=== PATIENT | male | born 1940 | race Caucasian/White ===

== ENCOUNTER 2017-11-02 07:17 | Day surgery (SDC) ==
[2017-11-02] MEDS ORDERED: LIDOCAINE 1% 20 ML MDV ID STA (07:51)
[2017-11-02] MEDS ORDERED: DIPRIVAN 20 ML VIAL IVP ONE (09:15)
[2017-11-02] MEDS ORDERED: VERSED ONE (09:15)
[2017-11-02 10:15] VITALS: BP 142/68; TEMP 98.6
--- NOTE | 2017-11-03 09:51 | OP ---
PROCEDURE: COLONOSCOPY TO THE CECUM. ENDOSCOPIST: Bassem DAUGHERTY M.D. INDICATION: CHANGE IN BOWEL HABITS. LAST COLONOSCOPY 5 YEARS AGO. INSTRUMENT: PCEdutor-[id number]. MEDICATION: PER ANESTHESIA. PROCEDURE: The patient was positioned for colonoscopy. The digital rectal exam was negative. The colonoscope was inserted through the anus and advanced to the cecum. The cecum was identified using the ileocecal valve and the appendiceal orifice as landmarks. The scope was slowly withdrawn through an adequately prepped colon. Green Bowel Prep Score of 9. A few scattered diverticula noted in the left colon. The retroflex exam was otherwise normal. The patient tolerated the procedure well without immediate complication. Withdrawal time 8 minutes and 29 seconds. PLAN: 1. Repeat as needed. CC: [facility]
== END 2017-11-02 10:10 | disposition home or self-care (01) ==
LOC: SURG 07:17
PROVIDERS: ATTEND Internal Medicine Gastroenterology
DX: R19.4 Change in bowel habit (principal); K57.30 Diverticulosis of large intestine without perforation or abscess without bleeding

== ENCOUNTER 2023-06-25 19:42 | Observation (INO) ==
[2023-06-25] MEDS ORDERED: SOLU-MEDROL 125 MG IVP ONE (20:08)
[2023-06-25] MEDS ORDERED: DUONEB NEB STA (20:08)
--- NOTE | 2023-06-25 20:09 | ED.PDOC ---
General ED Provider: Dr. KAI ALEJANDRO MD Chief Complaint: Shortness of Air Stated Complaint: SOB Time Seen by Provider: 06/25/23 20:01 Information Source: Patient and EMT Primary Care Provider: JAZZMINE MACIEL Nursing and Triage Documentation Reviewed and Agree: Yes Review of Systems Review Of Systems Constitutional: Reports Weakness All Other Systems: Reviewed and Negative Physical Exam Physical Exam Appearance: Reports No pain distress and Thin Ill-appearing: Mild Pain Distress: None Eyes: Reports KINSEY and EOMI ENT: Reports Ears normal and Nose normal Neck: Supple Respiratory: Reports Airway patent, Breath sounds diminished and Wheezes Cardiovascular: Reports No rub, No murmur and Bradycardia GI/: Reports Soft and No masses Musculoskeletal: Reports Normal strength and ROM intact Skin: Reports Warm and Normal color Neurological: Reports Sensation intact and Motor intact Psychiatric: Reports Affect appropriate Interpretation EKG Interpretation EKG Interpretation By: ED Physician Time of EKG #1: 19:55 Rate: Robles Rhythm: Sinus Ectopy: PACs Interpretation: sinus bradycardia, no acute ischemia Critical Care Note Critical Care Note Total Critical Care Time (mins): 0 Course Course 06/25/23 20:22 06/25/23 20:22 Orders, Labs, Meds: Lab Review 06/25/23 06/25/23 06/25/23 20:22 20:26 20:55 WBC 10.35 H RBC 2.71 L Hgb 8.5 L Hct 25.2 L MCV 93.0 MCH 31.4 H MCHC 33.7 RDW Coeff of Sri 17.1 H Plt Count 270 Immature Gran % (Auto) 0.7 Neut % (Auto) 68.1 Lymph % (Auto) 16.5 [place] % (Auto) 8.9 Eos % (Auto) 5.4 Baso % (Auto) 0.4 Neut # (Auto) 7.1 H Lymph # (Auto) 1.7 [place] # (Auto) 0.9 Eos # (Auto) 0.6 Baso # (Auto) 0.0 Immature Gran # (Auto) 0.1 Sodium 135.6 Potassium 4.08 Chloride 106.5 Carbon Dioxide 22.8 Anion Gap 10.38 BUN 45.3 H Creatinine 1.84 H Estimated GFR (MDRD) 35.00 BUN/Creatinine Ratio 24.61 Glucose 94.7 Calcium 8.51 Total Bilirubin 0.80 AST 27.4 ALT 14.8 Alkaline Phosphatase 53.7 L Troponin I 0.019 NT-Pro-B Natriuret Pep 4170 H Total Protein 7.01 Albumin 3.27 L Globulin 3.74 Albumin/Globulin Ratio 0.87 Urine Color Yellow Urine Clarity Clear Urine pH 5.5 Ur Specific [place] 1.015 Urine Protein 1+ H Urine Glucose (UA) Negative Urine Ketones Negative Urine Blood Negative Urine Nitrite Negative Urine Bilirubin Negative Urine Urobilinogen 0.2 Ur Leukocyte Esterase Negative Urine Microscopic RBC 0-2 Urine Microscopic WBC 0-2 Ur Squamous Epith Cells 2-5 Hyaline Casts 2-5 Influ A Molecular Assay Negative by naat Influ B Molecular Assay Negative by naat Orders Category Date Time Status ADMIT OBSERVATION [PLACE PATIENT OBSERVATION] .TO ADMISSION 06/25/23 22:23 Active MEDSURG (MONITORED BED) EKG-(ED ONLY) Stat CARDIO 06/25/23 20:01 Completed NEBULIZER TREATMENT Stat CARDIO 06/25/23 20:08 Completed IV ACCESS ONCE CARE 06/25/23 20:08 Active TELEMETRY MONITORING TELE CARE 06/25/23 22:24 Active CARDIAC DIET DIETARY 06/26/23 Breakfast Ordered Monitor [ED ARTISTIC DIRECTOR APPLIED] .ONCE EMERGENCY 06/25/23 20:08 Active CBC W/ AUTO DIFF Stat LAB 06/25/23 20:22 Completed CMP [COMPREHENSIVE METABOLIC PANEL] Stat LAB 06/25/23 20:22 Completed FLU A & B MOLECULAR [FLU A/B MOLECULAR] Stat LAB 06/25/23 20:26 Completed PROBNP ED [NT-PROBNP(ED)] Stat LAB 06/25/23 20:22 Completed TROPONIN I Stat LAB 06/25/23 20:22 Completed UA [URINALYSIS C & S IF INDICATED] Stat LAB 06/25/23 20:55 Completed Azithromycin Inj [Zithromax] 500 mg Meds 06/26/23 09:00 Ordered 0.9 % Sodium Chloride [Sodium Chloride] 250 ml IV DAILY Azithromycin Inj [Zithromax] 500 mg Meds 06/25/23 22:14 Active 0.9 % Sodium Chloride [Sodium Chloride] 250 ml IV ONCE Furosemide [Lasix] Meds 06/25/23 21:05 Discontinued 20 mg IVP ONCE STA Ipratropium/Albuterol Neb [Duoneb] Meds 06/25/23 20:08 Discontinued 3 ml NEB ONCE STA Methylprednisolone Sod Succ/Pf [Solu-Medrol 125 mg] Meds 06/25/23 20:08 Discontinued 125 mg IVP ONCE ONE Methylprednisolone Sod Succ/Pf [Solu-Medrol 40 mg] Meds 06/25/23 22:30 Ordered 40 mg IVP Q8H CXR [CHEST, 1V AP ONLY] Stat RADS 06/25/23 20:01 Completed Medications Generic Name Dose Route Start Last Admin Trade Name Freq PRN Reason Stop Dose Admin Albuterol/Ipratropium 3 ml 06/26/23 00:00 Ipratropium/Albuterol Vial.Neb NEB RTQ6H BERYL Azithromycin 500 mg/ Sodium 250 mls @ 250 mls/hr 06/25/23 22:14 Chloride IV 06/25/23 23:13 ONCE ONE Azithromycin 500 mg/ Sodium 250 mls @ 250 mls/hr 06/26/23 09:00 Chloride IV 06/29/23 08:59 DAILY BERYL Methylprednisolone Sodium Succinate 40 mg 06/25/23 22:30 Methylprednisolone Sod Succ/Pf 40 Mg/Ml Vial IVP Q8H BERYL Discontinued Medications Generic Name Dose Route Start Last Admin Trade Name Freq PRN Reason Stop Dose Admin Albuterol/Ipratropium 3 ml 06/25/23 20:08 06/25/23 20:23 Ipratropium/Albuterol Vial.Neb NEB 06/25/23 20:09 3 ml ONCE STA Administration Furosemide 20 mg 06/25/23 21:05 06/25/23 21:11 Furosemide Inj 20 Mg/2 Ml Vial IVP 06/25/23 21:06 20 mg ONCE STA Administration Methylprednisolone Sodium Succinate 125 mg 06/25/23 20:08 06/25/23 20:14 Methylprednisolone Sod Succ/Pf 125 Mg/2 Ml Vial IVP 06/25/23 20:09 125 mg ONCE ONE Administration Vital Signs: Temp Pulse Resp BP Pulse Ox O2 Flow Rate 06/25/23 22:25 53 L 18 115/42 L 96 2 06/25/23 19:44 98.3 F 58 L 24 H 122/49 L 93 L 83 years old male with past medical history of hypertension, dyslipidemia, COPD, anxiety, hypothyroidism who came to the ER for shortness of breath patient reports that he has been feeling short of breath worse with exertion has not been able to walk to the door to open for his son at home. WBC 10.3 hemoglobin 8.5 BUN 45 creatinine 1.8 troponin negative proBNP 4170 urinalysis negative for urine infection. Patient was given Solu-Medrol 125 mg and DuoNeb nebulizer treatment and 20 mg of IV Lasix symptoms improved but continues to feel weak. Case discussed with hospitalist Nory and she accepted the patient to be admitted to her services for further IV steroids/antibiotics possible cardiology consultation Discharge Plan Discharge Patient Disposition: ADMITTED INPATIENT Discharge Problem: Acute exacerbation of chronic obstructive pulmonary disease, Acute renal failure, Anemia Did you review [place] RESEARCH ANIMAL ATTENDANT for ALL controlled substances?: Not Applicable ED Provider: KAI ALEJANDRO Condition: Stable Physician Progress Note: []
--- NOTE | 2023-06-25 20:22 | DI ---
EXAM: CHEST RADIOGRAPH TECHNIQUE: Single frontal chest radiograph. COMPARISON: None. HISTORY: Shortness of breath. FINDINGS: Arteriosclerosis is noted. The heart measures at the upper limits of normal. A small left pleural ef fusion is identified with adjacent atelectasis. Otherwise, the lungs are clear. No pneumothorax. Age-related degerative changes are noted. IMPRESSION: A small left pleural effusion is identified.
[2023-06-25 20:23] LABS: BASOPHILS % (AUTO) 0.4 % (0.0-3.0); EOSINOPHILS # (AUTO) 0.6 K/ul (0.0-0.7); EOSINOPHILS % (AUTO) 5.4 % (0.0-7.0); HEMATOCRIT 25.2 % (42.0-52.0); HEMOGLOBIN 8.5 g/dl (14.0-18.0); IMMATURE GRANULOCYTE # (AUTO) 0.1 (0.0-1.0); IMMATURE GRANULOCYTE % (AUTO) 0.7 % (0.0-5.0); LYMPHOCYTES # (AUTO) 1.7 K/uL (0.60-3.4); LYMPHOCYTES % (AUTO) 16.5 (10.0-50.0); MEAN CORPUSCULAR HEMOGLOBIN 31.4 pg (27.0-31.0); MEAN CORPUSCULAR HGB CONC 33.7 (31.8-35.4); MONOCYTES # (AUTO) 0.9 K/uL (0.4-2.0); MONOCYTES % (AUTO) 8.9 (0-10); NEUTROPHILS # (AUTO) 7.1 K/ul (2.0-6.9); NEUTROPHILS % (AUTO) 68.1 % (42.2-75.2); PLATELET COUNT 270 10^3/uL (140-440); RDW COEFFICIENT OF VARIATION 17.1 % (11.6-14.8); RED BLOOD COUNT 2.71 10^6/ul (4.70-6.10); WHITE BLOOD COUNT 10.35 K/ul (4.2-10.2)
[2023-06-25 20:37] LABS: ALANINE AMINOTRANSFERASE 14.8 U/L (0-50); ALBUMIN 3.27 g/dL (3.5-5.0); ALKALINE PHOSPHATASE 53.7 U/L (56-119); ASPARTATE AMINO TRANSFERASE 27.4 U/L (17-59); BILIRUBIN,TOTAL 0.8 mg/dL (0.2-1.3); BLOOD UREA NITROGEN 45.3 mg/dL (9-20); CALCIUM 8.51 mg/dL (8.4-10.2); CARBON DIOXIDE 22.8 mmol/L (22-30.0); CHLORIDE 106.5 mmol/L (98-107); CREATININE 1.84 mg/dL (0.60-1.10); GLUCOSE 94.7 mg/dL (74-106); POTASSIUM 4.08 mmol/L (3.5-5.1); SODIUM 135.6 mmol/L (134.5-145); TOTAL PROTEIN 7.01 g/dL (6.3-8.2)
[2023-06-25 20:46] LABS: MOLECULAR FLU A NEGATIVE BY NAAT (NEGATIVE); MOLECULAR FLU B NEGATIVE BY NAAT (NEGATIVE)
[2023-06-25 20:49] LABS: TROPONIN I 0.019 ng/ml (0.0000-0.120)
[2023-06-25] MEDS ORDERED: LASIX IVP STA (21:05)
[2023-06-25 21:46] LABS: BILIRUBIN,URINE Negative (NEGATIVE); CLARITY,URINE Clear (CLEAR); COLOR,URINE Yellow (YELLOW); GLUCOSE, URINE (UA) Negative (NEGATIVE); KETONES,URINE Negative (NEGATIVE); LEUKOCYTE ESTERASE ,URINE Negative (NEGATIVE); NITRITE,URINE Negative (NEGATIVE); PH,URINE 5.5 (5-9); PROTEIN,URINE 1+ (NEGATIVE); URINE, BLOOD Negative (NEGATIVE); UROBILINOGEN,URINE 0.2 (0.2)
[2023-06-25 21:51] LABS: URINE RBC, MICROSCOPIC 0-2 (0-2); URINE WBC, MICROSCOPIC 0-2 (0-2)
[2023-06-25] MEDS ORDERED: ZITHROMAX 500 MG in SODIUM CHLORIDE 250 ML IV ONE (22:14)
[2023-06-25 23:00] LABS: SARS COV-2 RNA RAPID NAAT NEGATIVE (NEGATIVE)
[2023-06-25 23:28] VITALS: BMI 20.5
[2023-06-25] MEDS: NICODERM 21 MG TD SCH (23:46)
[2023-06-26] MEDS: DUONEB NEB SCH ×4 (00:53→17:01)
[2023-06-26] MEDS: SOLU-MEDROL 40 MG IVP SCH ×3 (04:45→20:12)
[2023-06-26 05:28] VITALS: RESP 18
[2023-06-26 06:13] LABS: BASOPHILS % (AUTO) 0.2 % (0.0-3.0); HEMATOCRIT 26.2 % (42.0-52.0); HEMOGLOBIN 8.5 g/dl (14.0-18.0); IMMATURE GRANULOCYTE # (AUTO) 0.1 (0.0-1.0); IMMATURE GRANULOCYTE % (AUTO) 0.6 % (0.0-5.0); LYMPHOCYTES # (AUTO) 0.5 K/uL (0.60-3.4); MEAN CORPUSCULAR HEMOGLOBIN 30.6 pg (27.0-31.0); MEAN CORPUSCULAR HGB CONC 32.4 (31.8-35.4); MEAN CORPUSCULAR VOLUME 94.2 fl (80.0-94.0); MONOCYTES # (AUTO) 0.1 K/uL (0.4-2.0); MONOCYTES % (AUTO) 1.4 (0-10); NEUTROPHILS # (AUTO) 9.5 K/ul (2.0-6.9); NEUTROPHILS % (AUTO) 92.8 % (42.2-75.2); PLATELET COUNT 328 10^3/uL (140-440); RDW COEFFICIENT OF VARIATION 16.9 % (11.6-14.8); RED BLOOD COUNT 2.78 10^6/ul (4.70-6.10); WHITE BLOOD COUNT 10.22 K/ul (4.2-10.2)
[2023-06-26 06:25] LABS: ALANINE AMINOTRANSFERASE 14.8 U/L (0-50); ALBUMIN 3.08 g/dL (3.5-5.0); ALKALINE PHOSPHATASE 50.9 U/L (56-119); ASPARTATE AMINO TRANSFERASE 26.6 U/L (17-59); BILIRUBIN,TOTAL 0.75 mg/dL (0.2-1.3); BLOOD UREA NITROGEN 46.3 mg/dL (9-20); CALCIUM 8.36 mg/dL (8.4-10.2); CARBON DIOXIDE 26.4 mmol/L (22-30.0); CHLORIDE 106.2 mmol/L (98-107); CREATININE 1.98 mg/dL (0.60-1.10); GLUCOSE 174.2 mg/dL (74-106); POTASSIUM 4.28 mmol/L (3.5-5.1); TOTAL PROTEIN 6.78 g/dL (6.3-8.2)
[2023-06-26] MEDS: NICODERM 21 MG TD SCH (09:14)
[2023-06-26] MEDS: CELEXA PO SCH (09:14)
[2023-06-26] MEDS: IMDUR PO SCH (09:14)
[2023-06-26] MEDS: APRESOLINE PO SCH ×2 (09:14→20:05)
[2023-06-26] MEDS: COZAAR PO SCH ×2 (09:15→20:05)
[2023-06-26] MEDS: NORVASC PO SCH (09:15)
[2023-06-26] MEDS: ZYLOPRIM PO SCH (09:15)
[2023-06-26] MEDS: FLOMAX PO SCH (09:15)
[2023-06-26] MEDS: ASPIRIN EC PO SCH (09:15)
[2023-06-26] MEDS: PROTONIX PO SCH ×2 (09:16→16:52)
[2023-06-26] MEDS: SYNTHROID PO SCH (09:16)
--- NOTE | 2023-06-26 10:47 | PCM ---
Date of Service Date Seen by Provider: 06/26/23 Time Seen by Provider: 08:40 Admit Day/Time Admission Date: 06/25/23 Admission Time: 22:23 Reason for Admission Chief Complaint: COPD EXACERBATION Hospital Provider Hospital Provider: GLEN GRIDER PA-C, [facility] [place] Phys[place] Primary Care Physician: JAZZMINE MACIEL History of Present Illness History of Present Illness: Patient is an 83 year old male with pmhx of COPD, CAD, hypertension, hypothyroidism, GERD, BPH, hyperlipidemia, gout who presented to the ER with worsening SOB. 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 He has had exertional SOB. Denies chest pain. No fever. He had a couple episodes of diarrhea. He overall just feels weak. In ER, CXR showed a mild pleural effusion. BNP elevated. Was wheezing. He was given neb treatment, solumedrol, and azith. Admitted for COPD exacerbation to [facility]. He was placed on 3L due to O2 being 90% per ERP. Records reviewed from [facility]. Patient was admitted end of January 27 for chest pain work up. Had echo showing LVEF 66-70%, moderate aoritc valve regurg, mild-mod aortic stenosis. Also had a cardiac cath with severe left main plus 3 vessel CAD, not appear amenable to PCI. Recs were to cont aspirin indefinitely and other risk factor modifying drugs. His insulation hoseman consulted with CT surgery regarding a CABG, but they did not feel he was an operable candidate. Patient f/u with Dr. Ashby, cardiology, on 03/05. Revisited idea of CABG with CT surgeon and again felt to be a poor candidate. Dr. Ashby is considering PCI for him. He preferred for patient to have pcp referral to neuro for work up of frequent dizziness/lightheadedness spells prior to undergoing a high risk PCI procedure. Pt has not f/u with pcp for a neuro referral at this time. He is still having frequent dizziness spells. Case Discussed With Case Discussed With: Patient's case was discussed with the ER Physicians, Dr. Sousa. [facility] Medical History Bilateral carotid artery disease I77.9 - Disorder of arteries and arterioles, unspecified (ICD-10) Depression F32.A - Depression, unspecified (ICD-10) Anxiety F41.9 - Anxiety disorder, unspecified (ICD-10) COPD (chronic obstructive pulmonary disease) J44.9 - Chronic obstructive pulmonary disease, unspecified (ICD-10) Hyperlipidemia E78.5 - Hyperlipidemia, unspecified (ICD-10) Anemia D64.9 - Anemia, unspecified (ICD-10) Hypothyroidism E03.9 - Hypothyroidism, unspecified (ICD-10) Diabetes E11.9 - Type 2 diabetes mellitus without complications (ICD-10) Myocardial infarct I21.9 - Acute myocardial infarction, unspecified (ICD-10) Hypertension I10 - Essential (primary) hypertension (ICD-10) Surgical History Status post spinal disc removal Z98.890 - Other specified postprocedural states (ICD-10) 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 - Acquired absence of other parts of urinary tract (ICD-10) Social History Smoking and tobacco status: Current every day smoker Tobacco type: cigarettes Smoking packs per day: 1 Smoking cigarettes per day: 20.0 Allergies Allergies Allergy/AdvReac Type Severity Reaction Status Date / Time No Known Allergies Allergy Verified 06/25/23 19:58 Current Medications Home Medications atenolol 50 mg tablet 25 mg PO QPM 10/30/17 [History Confirmed 06/25/23 Last Taken Unknown] cholecalciferol (vitamin D3) 50 mcg (2,000 unit) capsule (Vitamin D3) 2,000 units PO DAILY 10/30/17 [History Confirmed 06/25/23 Last Taken Unknown] citalopram 40 mg tablet (Celexa) 40 mg PO DAILY 10/30/17 [History Confirmed 06/25/23 Last Taken Unknown] cyanocobalamin (vitamin B-12) 1,000 mcg tablet 1,000 mcg PO DAILY 10/30/17 [History Confirmed 06/25/23 Last Taken Unknown] pantoprazole 40 mg tablet,delayed release 40 mg PO BID 10/30/17 [History Confirmed 06/25/23 Last Taken Unknown] tamsulosin 0.4 mg capsule 0.4 mg PO DAILY 10/30/17 [History Confirmed 06/25/23 Last Taken Unknown] allopurinol 100 mg tablet 100 mg PO DAILY 06/25/23 [History Confirmed 06/25/23 Last Taken Unknown] amlodipine 10 mg tablet 10 mg PO DAILY 06/25/23 [History Confirmed 06/25/23 Last Taken Unknown] aspirin 81 mg tablet,delayed release (Lor Low Dose Aspirin) 81 mg PO DAILY 06/25/23 [History Confirmed 06/25/23 Last Taken Unknown] atorvastatin 80 mg tablet 40 mg PO BEDTIME 06/25/23 [History Confirmed 06/25/23 Last Taken Unknown] calcitriol 0.25 mcg capsule 0.25 mcg PO DAILY 06/25/23 [History Confirmed 06/25/23 Last Taken Unknown] hydralazine 100 mg tablet 100 mg PO BID 06/25/23 [History Confirmed 06/25/23 Last Taken Unknown] isosorbide mononitrate 30 mg tablet,extended release 24 hr 30 mg PO DAILY 06/25/23 [History Confirmed 06/25/23 Last Taken Unknown] levothyroxine 112 mcg tablet (Euthyrox) 112 mcg PO DAILY 06/25/23 [History Confirmed 06/25/23 Last Taken Unknown] loratadine 10 mg tablet (Allerclear) 10 mg PO DAILY 06/25/23 [History Confirmed 06/25/23 Last Taken Unknown] losartan 100 mg tablet (Cozaar) 50 mg PO BID 06/25/23 [History Confirmed 06/25/23 Last Taken Unknown] magnesium oxide 400 mg PO DAILY 06/25/23 [History Confirmed 06/25/23 Last Taken Unknown] nitroglycerin 0.4 mg sublingual tablet 0.4 mg sublingual Q5-15M PRN chest pain 06/25/23 [History Confirmed 06/25/23 Last Taken Unknown] omega 7-luy-tnu-fish oil 300 mg-1,000 mg capsule (Fish Oil) 1 cap PO DAILY 06/25/23 [History Confirmed 06/25/23 Last Taken Unknown] Home Albuterol/Ipratropium (Ipratropium/Albuterol Vial.Neb) 3 ml NEB RTQ6H [facility] Last Admin: 06/26/23 04:48 Dose: 3 ml Allopurinol (Allopurinol 100 Mg Tablet) 100 mg PO DAILY [facility] Last Admin: 06/26/23 09:15 Dose: 100 mg Amlodipine Besylate (Amlodipine Besylate 5 Mg Tablet) 10 mg PO DAILY [facility] Last Admin: 06/26/23 09:15 Dose: 10 mg Aspirin (Aspirin 81 Mg Tablet.) 81 mg PO DAILYWM2 [facility] Last Admin: 06/26/23 09:15 Dose: 81 mg Atorvastatin Calcium (Atorvastatin Calcium 20 Mg Tablet) 40 mg PO BEDTIME BERYL Citalopram Hydrobromide (Citalopram Hydrobromide 20 Mg Tablet) 40 mg PO DAILY BERYL Last Admin: 06/26/23 09:14 Dose: 40 mg Hydralazine HCl (Hydralazine Hcl 50 Mg Tablet) 100 mg PO BID [facility] Last Admin: 06/26/23 09:14 Dose: 100 mg Azithromycin 500 mg/ Sodium (Chloride) 250 mls @ 250 mls/hr IV BEDTIME [facility] Stop: 06/28/23 20:59 Isosorbide Mononitrate (Isosorbide Mononitrate 30 Mg Tab.Er.24h) 30 mg PO DAILY [facility] Last Admin: 06/26/23 09:14 Dose: 30 mg Levothyroxine Sodium (Levothyroxine Sodium 112 Mcg Tablet) 112 mcg PO QDAC2 [facility] Last Admin: 06/26/23 09:16 Dose: 112 mcg Losartan Potassium (Losartan Potassium 100 Mg Tablet) 50 mg PO BID [facility] Last Admin: 06/26/23 09:15 Dose: 50 mg Methylprednisolone Sodium Succinate (Methylprednisolone Sod Succ/Pf 40 Mg/Ml Vial) 40 mg IVP Q8H [facility] Last Admin: 06/26/23 04:45 Dose: 40 mg Nicotine (Nicotine 21 Mg Patch.Td24) 1 patch TD DAILY [facility] Last Admin: 06/26/23 09:14 Dose: 1 patch Pantoprazole Sodium (Pantoprazole Sodium 40 Mg Tablet.) 40 mg PO BIDAC2 [facility] Last Admin: 06/26/23 09:16 Dose: 40 mg Sodium Chloride (0.9% Sodium Chloride 10 Ml Disp.Syrin) 1 syr IVF Q8HR [facility] Last Admin: 06/26/23 04:45 Dose: 1 syr Tamsulosin HCl (Tamsulosin Hcl 0.4 Mg Cap.Er.24h) 0.4 mg PO DAILY [facility] Last Admin: 06/26/23 09:15 Dose: 0.4 mg Discontinued Medications Albuterol/Ipratropium (Ipratropium/Albuterol Vial.Neb) 3 ml NEB ONCE STA Stop: 06/25/23 20:09 Last Admin: 06/25/23 20:23 Dose: 3 ml Furosemide (Furosemide Inj 20 Mg/2 Ml Vial) 20 mg IVP ONCE STA Stop: 06/25/23 21:06 Last Admin: 06/25/23 21:11 Dose: 20 mg Azithromycin 500 mg/ Sodium (Chloride) 250 mls @ 250 mls/hr IV ONCE ONE Stop: 06/25/23 23:13 Last Admin: 06/25/23 22:26 Dose: 250 mls/hr Azithromycin 500 mg/ Sodium (Chloride) 250 mls @ 250 mls/hr IV 2000 BERYL Stop: 06/29/23 19:59 Methylprednisolone Sodium Succinate (Methylprednisolone Sod Succ/Pf 125 Mg/2 Ml Vial) 125 mg IVP ONCE ONE Stop: 06/25/23 20:09 Last Admin: 06/25/23 20:14 Dose: 125 mg Review of Systems Constitutional: Reports Fatigue and Weakness; Denies Fever Head: Reports Normocephalic and Atraumatic Cardiovascular: Denies Chest pain or Edema Respiratory: Reports Cough, Shortness of air and Wheeze Gastrointestinal: Reports Diarrhea; Denies Nausea, Vomiting, Abdominal pain or Melena Hematology: Reports Anemia Neurological: Reports Dizziness (+chronic) and Weakness; Denies Syncope Physical examination Most Recent Vital Signs: Most Recent Vital Signs Temperature 97.9 F 06/26/23 10:00 Temperature Source Oral 06/26/23 10:00 Temperature Source Infrared 06/25/23 19:44 Pulse Rate 60 06/26/23 10:00 Respiratory Rate 18 06/26/23 10:00 Blood Pressure 121/51 L 06/26/23 10:00 Blood Pressure Mean 74 06/26/23 10:00 Blood Pressure Left Arm 115/47 06/25/23 23:16 Blood Pressure Location Right Arm 06/26/23 10:00 Blood Pressure Position Supine 06/26/23 05:26 O2 Sat by Pulse Oximetry 93 L 06/26/23 10:00 Oxygen Delivery Method Nasal Cannula 06/26/23 10:00 Oxygen Flow Rate 1 06/26/23 10:00 Height 6 ft 1 in 06/25/23 23:16 Weight 156 lb 06/25/23 23:16 Telemetry Type Remote Telemetry 06/26/23 07:00 Telemetry Monitoring Continues 06/26/23 07:00 Telemetry Heart Rate 63 06/26/23 07:00 Telemetry SPO2 97 06/26/23 01:00 EKG OH Interval 0.18 06/26/23 07:00 EKG QRS Interval 0.08 06/26/23 07:00 Telemetry Strip Reading SR 06/26/23 07:00 Appearance: Positive No Apparent Distress, Alert and Oriented x3 and Other (+elderly, frail) Skin: Positive [place], Warm and Good Turgor; Negative Rashes HEENT: Positive Normocephalic and Atraumatic Neck: Positive Supple and Midline Trachea Chest/Lungs: Positive Symmetrical With Equal Breath Sounds, Wheezes (+mild wheezes nikolas ) and Good Air Movement all 4 Lung Reilly; Negative Rales or Rhonci Heart: Positive RRR GI/: Positive Soft, Nontender, Bowel Sounds Normal and No Distention Extremities: Negative Edema Neurological: Positive Cranial Nerves Intact, Alert, Oriented and Other (+generalized weakness ) Psychiatric: Positive Oriented x4, Appropriate Mood and Appropriate Affect Labs This Visit Labs This Visit: Labs This Visit 06/25/23 06/25/23 06/25/23 20:22 20:26 20:55 WBC 10.35 H RBC 2.71 L Hgb 8.5 L Hct 25.2 L MCV 93.0 MCH 31.4 H MCHC 33.7 RDW Coeff of Sri 17.1 H Plt Count 270 Immature Gran % (Auto) 0.7 Neut % (Auto) 68.1 Lymph % (Auto) 16.5 [place] % (Auto) 8.9 Eos % (Auto) 5.4 Baso % (Auto) 0.4 Neut # (Auto) 7.1 H Lymph # (Auto) 1.7 [place] # (Auto) 0.9 Eos # (Auto) 0.6 Baso # (Auto) 0.0 Immature Gran # (Auto) 0.1 Sodium 135.6 Potassium 4.08 Chloride 106.5 Carbon Dioxide 22.8 Anion Gap 10.38 BUN 45.3 H Creatinine 1.84 H Estimated GFR (MDRD) 35.00 BUN/Creatinine Ratio 24.61 Glucose 94.7 Calcium 8.51 Total Bilirubin 0.80 AST 27.4 ALT 14.8 Alkaline Phosphatase 53.7 L Troponin I 0.019 NT-Pro-B Natriuret Pep 4170 H Total Protein 7.01 Albumin 3.27 L Globulin 3.74 Albumin/Globulin Ratio 0.87 Urine Color Yellow Urine Clarity Clear Urine pH 5.5 Ur Specific [place] 1.015 Urine Protein 1+ H Urine Glucose (UA) Negative Urine Ketones Negative Urine Blood Negative Urine Nitrite Negative Urine Bilirubin Negative Urine Urobilinogen 0.2 Ur Leukocyte Esterase Negative Urine Microscopic RBC 0-2 Urine Microscopic WBC 0-2 Ur Squamous Epith Cells 2-5 Hyaline Casts 2-5 Influ A Molecular Assay Negative by naat Influ B Molecular Assay Negative by naat SARS CoV-2 RNA Rapid JESICA 06/25/23 06/26/23 22:38 04:52 WBC 10.22 H RBC 2.78 L Hgb 8.5 L Hct 26.2 L MCV 94.2 H MCH 30.6 MCHC 32.4 RDW Coeff of Sri 16.9 H Plt Count 328 Immature Gran % (Auto) 0.6 Neut % (Auto) 92.8 H Lymph % (Auto) 5.0 L [place] % (Auto) 1.4 Eos % (Auto) 0.0 Baso % (Auto) 0.2 Neut # (Auto) 9.5 H Lymph # (Auto) 0.5 L [place] # (Auto) 0.1 L Eos # (Auto) 0.0 Baso # (Auto) 0.0 Immature Gran # (Auto) 0.1 Sodium 135.0 Potassium 4.28 Chloride 106.2 Carbon Dioxide 26.4 Anion Gap 6.68 BUN 46.3 H Creatinine 1.98 H Estimated GFR (MDRD) 32.00 BUN/Creatinine Ratio 23.38 Glucose 174.2 H D Calcium 8.36 L Total Bilirubin 0.75 AST 26.6 ALT 14.8 Alkaline Phosphatase 50.9 L Troponin I NT-Pro-B Natriuret Pep Total Protein 6.78 Albumin 3.08 L Globulin 3.70 Albumin/Globulin Ratio 0.83 Urine Color Urine Clarity Urine pH Ur Specific [place] Urine Protein Urine Glucose (UA) Urine Ketones Urine Blood Urine Nitrite Urine Bilirubin Urine Urobilinogen Ur Leukocyte Esterase Urine Microscopic RBC Urine Microscopic WBC Ur Squamous Epith Cells Hyaline Casts Influ A Molecular Assay Influ B Molecular Assay SARS CoV-2 RNA Rapid JESICA Negative Imaging Imaging: EXAM: CHEST RADIOGRAPH TECHNIQUE: Single frontal chest radiograph. COMPARISON: None. HISTORY: Shortness of breath. FINDINGS:Arteriosclerosis is noted. The heart measures at the upper limits of normal. A small left pleural effusion is identified with adjacent atelectasis. Otherwise, the lungs are clear. No pneumothorax. Age-related degerative changes are noted. IMPRESSION: A small left pleural effusion is identified. Review Statement Review Statement: I have independently reviewed and interpreted the labs/EKGs/imaging that were ordered by the ER provider. I have reviewed all outside records that are available currently in our EMR including imaging/notes/labs from previous visits. Plan Plan: 1. Acute COPD exacerbation - Cont azith, solumedrol, nebs. Wean o2 when able, pt has not been hypoxic. PFT 01/27 showed moderate COPD. Pt states he takes inhalers at home. Wixela and albuterol. 2. CAD - Pt following Dr. Ashby at [facility], plan for PCI at later date but medically manage until then. [facility] to work up his dizziness. 3. Anemia, chronic - [facility] note patient gets darbepoetin shots 60 mcg q4 weeks and follows with heme/onc outpatient. 4. Hypertension - Cont home meds 5. Hyperlipidemia - Cont home meds 6. Gout - Cont home meds 7. Hypothyroidism - Continue home meds 8. GERD - Cont home meds 9. BPH - Cont home meds Dispo - Pt improving from COPD standpoint. Likely dc tomorrow. Needs to make f[facility]u with [facility] for [facility] referral for work up to then f/u with his insulation hoseman to address his severe CAD. Patient understands this. Tried to make [facility] PCP apt for him but they wouldn't allow it. DVT Prophylaxis: Lovenox Time Spent: Greater than 80 minutes spent with patient, 50% of the time spent wi th this patient was devoted to counseling and coordination of care. Advanced [facility] Plannin minutes spent discussing advance care planning. DNR Smoking Cessation: 3 minutes spent discussing smoking cessation. Admit to: Obs Discussed Plan of Care with Dr. Jacy Bay. Medications Medication Orders: Medications Ordered Category Date Time Status 0.9 % Sodium Chloride [Saline Flush] Meds 06/26/23 05:00 Active 1 syr IVF Q8HR Allopurinol [Zyloprim] Meds 06/26/23 09:00 Active 100 mg PO DAILY Amlodipine Besylate [Norvasc] Meds 06/26/23 09:00 Active 10 mg PO DAILY Aspirin [Aspirin EC] Meds 06/26/23 09:00 Active 81 mg PO DAILYWM2 Atorvastatin Calcium [Lipitor] Meds 06/26/23 21:00 Active 40 mg PO BEDTIME Azithromycin Inj [Zithromax] 500 mg Meds 06/26/23 21:00 Active 0.9 % Sodium Chloride [Sodium Chloride] 250 ml IV BEDTIME Citalopram Hydrobromide [Celexa] Meds 06/26/23 09:00 Active 40 mg PO DAILY Hydralazine HCl [Apresoline] Meds 06/26/23 09:00 Active 100 mg PO BID Ipratropium/Albuterol Neb [Duoneb] Meds 06/26/23 00:00 Active 3 ml NEB RTQ6H Isosorbide Mononitrate [Imdur] Meds 06/26/23 09:00 Active 30 mg PO DAILY Levothyroxine Sodium [Synthroid] Meds 06/26/23 09:00 Active 112 mcg PO QDAC2 Losartan Potassium [Cozaar] Meds 06/26/23 09:00 Active 50 mg PO BID Methylprednisolone Sod Succ/Pf [Solu-Medrol 40 mg] Meds 06/26/23 04:00 Active 40 mg IVP Q8H Nicotine 21 mg [Nicoderm 21 mg] Meds 06/25/23 23:21 Active 1 patch TD DAILY Pantoprazole Sodium [Protonix] Meds 06/26/23 09:00 Active 40 mg PO BIDAC2 Tamsulosin HCl [Flomax] Meds 06/26/23 09:00 Active 0.4 mg PO DAILY
[2023-06-26] MEDS ORDERED: TENORMIN PO SCH (17:00)
[2023-06-26] MEDS ORDERED: ZITHROMAX 500 MG in SODIUM CHLORIDE 250 ML IV SCH ×2 (20:00→21:00)
[2023-06-26] MEDS ORDERED: LIPITOR PO SCH (21:00)
[2023-06-27] MEDS: DUONEB NEB SCH ×2 (00:13→05:08)
[2023-06-27] MEDS: SOLU-MEDROL 40 MG IVP SCH (04:24)
[2023-06-27 05:22] VITALS: BP 146/59; PULSE 61; TEMP 97.6
[2023-06-27] MEDS: PROTONIX PO SCH (05:22)
[2023-06-27] MEDS: SYNTHROID PO SCH (05:22)
[2023-06-27 06:11] LABS: BASOPHILS % (AUTO) 0.1 % (0.0-3.0); HEMATOCRIT 26.2 % (42.0-52.0); HEMOGLOBIN 8.8 g/dl (14.0-18.0); IMMATURE GRANULOCYTE # (AUTO) 0.2 (0.0-1.0); IMMATURE GRANULOCYTE % (AUTO) 0.9 % (0.0-5.0); LYMPHOCYTES # (AUTO) 1.1 K/uL (0.60-3.4); LYMPHOCYTES % (AUTO) 4.3 (10.0-50.0); MEAN CORPUSCULAR HEMOGLOBIN 31.3 pg (27.0-31.0); MEAN CORPUSCULAR HGB CONC 33.6 (31.8-35.4); MEAN CORPUSCULAR VOLUME 93.2 fl (80.0-94.0); MONOCYTES # (AUTO) 0.9 K/uL (0.4-2.0); MONOCYTES % (AUTO) 3.7 (0-10); NEUTROPHILS # (AUTO) 22.5 K/ul (2.0-6.9); PLATELET COUNT 329 10^3/uL (140-440); RDW COEFFICIENT OF VARIATION 17.4 % (11.6-14.8); RED BLOOD COUNT 2.81 10^6/ul (4.70-6.10)
[2023-06-27 06:12] LABS: ALANINE AMINOTRANSFERASE 15.4 U/L (0-50); ALBUMIN 3.33 g/dL (3.5-5.0); ALKALINE PHOSPHATASE 49.7 U/L (56-119); ASPARTATE AMINO TRANSFERASE 26.3 U/L (17-59); BILIRUBIN,TOTAL 0.61 mg/dL (0.2-1.3); BLOOD UREA NITROGEN 55.2 mg/dL (9-20); CALCIUM 8.52 mg/dL (8.4-10.2); CARBON DIOXIDE 24.5 mmol/L (22-30.0); CHLORIDE 102.9 mmol/L (98-107); CREATININE 1.75 mg/dL (0.60-1.10); GLUCOSE 164.2 mg/dL (74-106); POTASSIUM 4.38 mmol/L (3.5-5.1); SODIUM 133.6 mmol/L (134.5-145); TOTAL PROTEIN 7.26 g/dL (6.3-8.2)
[2023-06-27 06:15] LABS: WHITE BLOOD COUNT 24.68 K/ul (4.2-10.2)
--- NOTE | 2023-06-27 09:08 | DCSUM ---
Admission Date Admission Date: 06/25/23 Discharge Date Discharge Date: 06/27/23 Admission Diagnosis Admission Diagnosis: 1. Acute COPD exacerbation Discharge Diagnosis Discharge Diagnosis: 1. Acute COPD exacerbation - Improved. 2. CAD - f/u with Dr. Ashby 3. Anemia, chronic - stable 4. Hypertension - chronic, stable 5. Hyperlipidemia - chronic, stable 6. Gout - chronic, stable 7. Hypothyroidism - chronic, stable 8. GERD - Chronic, stable 9. BPH - chronic, stable 10. Bradycardia - decreased atenolol Hospital Provider Hospital Provider: GLEN GRIDER [facility]-C, [facility] Physician Primary Care Physician: JAZZMINE MACIEL Summary of History and Physical Summary of History and Physical: Patient is an 83 year old male with pmhx of COPD, CAD, hypertension, hypothyroidism, GERD, BPH, hyperlipidemia, gout who presented to the ER with worsening SOB. 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 He has had exertional SOB. Denies chest pain. No fever. He had a couple episodes of diarrhea. He overall just feels weak. In ER, CXR showed a mild pleural effusion. BNP elevated. Was wheezing. He was given neb treatment, solumedrol, and azith. Admitted for COPD exacerbation to [facility]. He was placed on 3L due to O2 being 90% per ERP. Records reviewed from [facility]. Patient was admitted end of January 27 for chest pain work up. Had echo showing LVEF 66-70%, moderate aoritc valve regurg, mild-mod aortic stenosis. Also had a cardiac cath with severe left main plus 3 vessel CAD, not appear amenable to PCI. Recs were to cont aspirin indefinitely and other risk factor modifying drugs. His strategic buyer consulted with CT surgery regarding a CABG, but they did not feel he was an operable candidate. Patient f/u with Dr. Ashby, cardiology, on 03/05. Revisited idea of CABG with CT surgeon and again felt to be a poor candidate. Dr. Ashby is considering PCI for him. He preferred for patient to have pcp referral to neuro for work up of frequent dizziness/lightheadedness spells prior to undergoing a high risk PCI procedure. Pt has not f/u with pcp for a neuro referral at this time. He is still having frequent dizziness spells. Hospital Course Subjective: Patient was treated with azithromycin, solumedrol, and nebulizer treatments for COPD exacerbation. He is feeling much better, at his baseline. Ambulatory. On RA. Nonlabored breathing. Will discharge home on remainder of azith and pr ednisone. Pt will f/u with pcp for neuro referral to evaluate for dizziness. Discussed his HR consistently in 50s while on tele. Will decrease atenolol dose to see if that helps. Once worked up by neuro, f/u with Dr. Ashby, cardio, to consider PCI. Patient understands. Return with worsening symptoms. Appearance: Pleasant, No Apparent Distress and Alert HEENT: MMM and Supple CVS: Other (rrr) Abdomen: Soft, Non-Tender and No Distention Respiratory: No Accessory Muscle Use Extremities: No Edema Vital Signs: Most Recent Vital Signs Temperature 97.6 F 06/27/23 05:21 Temperature Source Temporal Artery Scan 06/27/23 05:21 Temperature Source Infrared 06/25/23 19:44 Pulse Rate 61 06/27/23 05:21 Respiratory Rate 18 06/27/23 05:21 Blood Pressure 146/59 H 06/27/23 05:21 Blood Pressure Mean 88 06/27/23 05:21 Blood Pressure Left Arm 115/47 06/25/23 23:16 Blood Pressure Location Left Arm 06/27/23 05:21 Blood Pressure Position Supine 06/27/23 05:21 O2 Sat by Pulse Oximetry 100 06/27/23 05:21 Oxygen Delivery Method Room Air 06/27/23 07:21 Oxygen Flow Rate 1 06/26/23 11:30 Height 6 ft 1 in 06/25/23 23:16 Weight 156 lb 06/25/23 23:16 Telemetry Type Remote Telemetry 06/27/23 01:00 Telemetry Monitoring Continues 06/27/23 01:00 Telemetry Heart Rate 60 06/27/23 01:00 Telemetry SPO2 97 06/26/23 01:00 EKG DE Interval 0.17 06/27/23 01:00 EKG QRS Interval 0.07 06/27/23 01:00 Telemetry Strip Reading SR 06/27/23 01:00 Imaging: EXAM: CHEST RADIOGRAPH TECHNIQUE: Single frontal chest radiograph. COMPARISON: None. HISTORY: Shortness of breath. FINDINGS: Arteriosclerosis is noted. The heart measures at the upper limits of normal. A small left pleural effusion is identified with adjacent atelectasis. Otherwise, the lungs are clear. No pneumothorax. Age-related degerative changes are noted. IMPRESSION: A small left pleural effusion is identified. Lab Results Last 24 Hours: 06/27/23 05:37 WBC 24.68 H D RBC 2.81 L Hgb 8.8 L Hct 26.2 L MCV 93.2 MCH 31.3 H MCHC 33.6 RDW Coeff of Sri 17.4 H Plt Count 329 Immature Gran % (Auto) 0.9 Neut % (Auto) 91.0 H Lymph % (Auto) 4.3 L [place] % (Auto) 3.7 Eos % (Auto) 0.0 Baso % (Auto) 0.1 Neut # (Auto) 22.5 H Lymph # (Auto) 1.1 [place] # (Auto) 0.9 Eos # (Auto) 0.0 Baso # (Auto) 0.0 Immature Gran # (Auto) 0.2 Sodium 133.6 L Potassium 4.38 Chloride 102.9 Carbon Dioxide 24.5 Anion Gap 10.58 BUN 55.2 H Creatinine 1.75 H Estimated GFR (MDRD) 37.00 BUN/Creatinine Ratio 31.54 Glucose 164.2 H Calcium 8.52 Total Bilirubin 0.61 AST 26.3 ALT 15.4 Alkaline Phosphatase 49.7 L Total Protein 7.26 Albumin 3.33 L Globulin 3.93 Albumin/Globulin Ratio 0.84 Discharge Instructions Discharge Planning: Discharge Planning > [address] Jacy Bay. Discharge Medications: Medications at Discharge (Home Meds & RX) cholecalciferol (vitamin D3) 50 mcg (2,000 unit) capsule (Vitamin D3) 2,000 units PO DAILY 10/30/17 citalopram 40 mg tablet (Celexa) 40 mg PO DAILY 10/30/17 cyanocobalamin (vitamin B-12) 1,000 mcg tablet 1,000 mcg PO DAILY 10/30/17 pantoprazole 40 mg tablet,delayed release 40 mg PO BID 10/30/17 tamsulosin 0.4 mg capsule 0.4 mg PO DAILY 10/30/17 allopurinol 100 mg tablet 100 mg PO DAILY 06/25/23 amlodipine 10 mg tablet 10 mg PO DAILY 06/25/23 aspirin 81 mg tablet,delayed release (Lor Low Dose Aspirin) 81 mg PO DAILY 06/25/23 atorvastatin 80 mg tablet 40 mg PO BEDTIME 06/25/23 calcitriol 0.25 mcg capsule 0.25 mcg PO DAILY 06/25/23 hydralazine 100 mg tablet 100 mg PO BID 06/25/23 isosorbide mononitrate 30 mg tablet,extended release 24 hr 30 mg PO DAILY 06/25/23 levothyroxine 112 mcg tablet (Euthyrox) 112 mcg PO DAILY 06/25/23 loratadine 10 mg tablet (Allerclear) 10 mg PO DAILY 06/25/23 losartan 100 mg tablet (Cozaar) 50 mg PO BID 06/25/23 magnesium oxide 400 mg PO DAILY 06/25/23 nitroglycerin 0.4 mg sublingual tablet 0.4 mg sublingual Q5-15M PRN chest pain 06/25/23 omega 0-tsg-yki-fish oil 300 mg-1,000 mg capsule (Fish Oil) 1 cap PO DAILY 06/25/23 atenolol 25 mg tablet 12.5 mg (1/2 x 25 mg) PO DAILY #30 tabs 06/27/23 azithromycin 250 mg tablet 250 mg PO DAILY 3 days #3 tabs 06/27/23 prednisone 20 mg tablet 20 mg PO BID 5 days #10 tabs 06/27/23 Discharge Plan Discharge Discharge Orders: Discharge Patient (ONCE); Ordered 06/27/23 Ordered By: GLEN GRIDER Activity Restrictions/Additional Instructions: DISCHARGE TO HOME DX: COPD EXACERBATION PHARMACY: [facility] F/U WITH YOUR PCP REMEMBER YOUR AVIATION ELECTRICAL TECHNICIAN WANTED YOU TO SEE NEUROLOGY FOR YOUR DIZZINESS YOUR ATENOLOL DOSE WAS DECREASED SINCE YOUR HEART RATE IS LOW (IN THE 50s) [facility] SHOULD BE IN CONTACT WITH YOU TO SCHEDULE A FOLLOW UP APPOINTMENT. IF YOU DO NOT HEAR FROM THEM IN A FEW DAYS PLEASE CALL THEM AT [phone]. Instructions: COPD (Chronic Obstructive Pulmonary Disease) (GEN) Patient Disposition: HOME SELF-CARE Prescriptions: New atenolol 25 mg tablet 12.5 mg PO DAILY Qty: 30 0RF prednisone 20 mg tablet 20 mg PO BID 5 Days Qty: 10 0RF azithromycin 250 mg tablet 250 mg PO DAILY 3 Days Qty: 3 0RF Rx Instructions: START TODAY Continued citalopram [Celexa] 40 MG tablet 40 mg PO DAILY tamsulosin 0.4 MG capsule 0.4 mg PO DAILY pantoprazole 40 MG tablet,delayed release (DR/EC) 40 mg PO BID cyanocobalamin (vitamin B-12) 1,000 MCG tablet 1,000 mcg PO DAILY cholecalciferol (vitamin D3) [Vitamin D3] 2,000 UNIT capsule 2,000 units PO DAILY omega 9-eus-knj-fish oil [Fish Oil] 300-1,000 mg capsule 1 cap PO DAILY aspirin [Lor Low Dose Aspirin] 81 mg tablet,delayed release (DR/EC) 81 mg PO DAILY levothyroxine [Euthyrox] 112 mcg tablet 112 mcg PO DAILY losartan [Cozaar] 100 mg tablet 50 mg PO BID calcitriol 0.25 mcg capsule 0.25 mcg PO DAILY loratadine [Allerclear] 10 mg tablet 10 mg PO DAILY atorvastatin 80 mg tablet 40 mg PO BEDTIME allopurinol 100 mg tablet 100 mg PO DAILY amlodipine 10 mg tablet 10 mg PO DAILY isosorbide mononitrate 30 mg tablet extended release 24 hr 30 mg PO DAILY hydralazine 100 mg tablet 100 mg PO BID magnesium oxide 400 mg magnesium capsule 400 mg PO DAILY nitroglycerin 0.4 mg tablet, sublingual 0.4 mg sublingual Q5-15M PRN (Reason: chest pain) Rx Instructions: do not exceed 3 doses per episode Discontinued atenolol 50 MG tablet 25 mg PO QPM Did you review [place] [employer] for ALL controlled substances?: Not Applicable Discussed opioids are addictive and Narcan is available by prescription or from pharmacy.: No Condition: Stable
[2023-06-27] MEDS: ASPIRIN EC PO SCH (09:19)
[2023-06-27] MEDS: APRESOLINE PO SCH (09:19)
[2023-06-27] MEDS: ZYLOPRIM PO SCH (09:19)
[2023-06-27] MEDS: NORVASC PO SCH (09:19)
[2023-06-27] MEDS: CELEXA PO SCH (09:20)
[2023-06-27] MEDS: COZAAR PO SCH (09:20)
[2023-06-27] MEDS: FLOMAX PO SCH (09:20)
[2023-06-27] MEDS: IMDUR PO SCH (09:20)
[2023-06-27] MEDS: NICODERM 21 MG TD SCH (09:20)
== END 2023-06-27 10:00 | disposition home or self-care (01) ==
LOC: MEDSURG B 19:42 → ED 19:42 → MEDSURG B 23:27
PROVIDERS: ADMIT Hospitalist; ATTEND Physician Assistant

== ENCOUNTER 2023-08-26 21:57 | Observation (INO) ==
[2023-08-26] MEDS ORDERED: SODIUM CHLORIDE 500 ML IV STA (22:05)
[2023-08-26] MEDS ORDERED: ASPIRIN CHEWABLE PO STA (22:05)
[2023-08-26 22:21] LABS: BASOPHILS # (AUTO) 0.1 K/uL (0-0.2); BASOPHILS % (AUTO) 0.5 % (0.0-3.0); EOSINOPHILS # (AUTO) 0.4 K/ul (0.0-0.7); EOSINOPHILS % (AUTO) 4.2 % (0.0-7.0); HEMATOCRIT 30.3 % (42.0-52.0); HEMOGLOBIN 9.9 g/dl (14.0-18.0); IMMATURE GRANULOCYTE # (AUTO) 0.1 (0.0-1.0); IMMATURE GRANULOCYTE % (AUTO) 0.8 % (0.0-5.0); LYMPHOCYTES # (AUTO) 1.6 K/uL (0.60-3.4); LYMPHOCYTES % (AUTO) 14.8 (10.0-50.0); MEAN CORPUSCULAR HEMOGLOBIN 30.8 pg (27.0-31.0); MEAN CORPUSCULAR HGB CONC 32.7 (31.8-35.4); MEAN CORPUSCULAR VOLUME 94.4 fl (80.0-94.0); MONOCYTES # (AUTO) 1.1 K/uL (0.4-2.0); MONOCYTES % (AUTO) 10.8 (0-10); NEUTROPHILS # (AUTO) 7.3 K/ul (2.0-6.9); NEUTROPHILS % (AUTO) 68.9 % (42.2-75.2); PLATELET COUNT 336 10^3/uL (140-440); RDW COEFFICIENT OF VARIATION 18.4 % (11.6-14.8); RED BLOOD COUNT 3.21 10^6/ul (4.70-6.10); WHITE BLOOD COUNT 10.51 K/ul (4.2-10.2)
[2023-08-26 22:36] LABS: ALANINE AMINOTRANSFERASE 11.8 U/L (0-50); ALBUMIN 3.55 g/dL (3.5-5.0); ALKALINE PHOSPHATASE 52.3 U/L (56-119); BILIRUBIN,TOTAL 0.66 mg/dL (0.2-1.3); BLOOD UREA NITROGEN 39.6 mg/dL (9-20); CARBON DIOXIDE 29.8 mmol/L (22-30.0); CHLORIDE 100.8 mmol/L (98-107); CREATININE 1.67 mg/dL (0.60-1.10); GLUCOSE 103.5 mg/dL (74-106); MAGNESIUM 1.69 mg/dL (1.6-2.3); POTASSIUM 3.79 mmol/L (3.5-5.1); SODIUM 135.9 mmol/L (134.5-145); TOTAL PROTEIN 7.39 g/dL (6.3-8.2)
--- NOTE | 2023-08-26 22:38 | DI ---
EXAM: PORTABLE CHEST HISTORY: Dyspnea COMPARISON: Single-view chest 07/15/2023 FINDINGS: The cardiomediastinal silhouette is stable The right lung is clear. There is improved ae ration at the left lung base with likely residual effusion and adjacent consolidation. IMPRESSION: Improved aeration at the left lung base with likely residual small effusion with adjacent consolidati on
[2023-08-26 22:39] LABS: PARTIAL THROMBOPLASTIN TIME 28.9 SEC (23.9-40.0); PROTHROMBIN TIME 11.6 SEC (9.3-11.0)
[2023-08-26 22:45] LABS: SARS COV-2 RNA RAPID NAAT NEGATIVE (NEGATIVE)
[2023-08-26 22:47] LABS: MOLECULAR FLU A NEGATIVE BY NAAT (NEGATIVE); MOLECULAR FLU B NEGATIVE BY NAAT (NEGATIVE)
[2023-08-27 01:11] LABS: BILIRUBIN,URINE Negative (NEGATIVE); CLARITY,URINE Clear (CLEAR); COLOR,URINE Yellow (YELLOW); GLUCOSE, URINE (UA) Negative (NEGATIVE); KETONES,URINE Negative (NEGATIVE); LEUKOCYTE ESTERASE ,URINE Negative (NEGATIVE); NITRITE,URINE Negative (NEGATIVE); PROTEIN,URINE 1+ (NEGATIVE); URINE, BLOOD Negative (NEGATIVE); UROBILINOGEN,URINE 0.2 (0.2)
[2023-08-27 01:13] LABS: SQUAMOUS EPITHELIAL CELL,UR NOT PRESENT (0-5)
[2023-08-27 01:21] LABS: BACTERIA,URINE TRACE (NOT PRESENT); URINE RBC, MICROSCOPIC 0-2 (0-2); URINE WBC, MICROSCOPIC 0-2 (0-2)
--- NOTE | 2023-08-27 01:34 | ED.PDOC ---
General ED Provider: Dr. SAMANTHA SANCHEZ Chief Complaint: Shortness of Air Stated Complaint: See above Time Seen by Provider: 08/26/23 21:58 Information Source: Patient and EMT Primary Care Provider: JAZZMINE MACIEL Nursing and Triage Documentation Reviewed and Agree: Yes (unless otherwise noted in my documentation.) Review of Systems Review Of Systems Constitutional: Reports Other (documented below) All Other Systems: Other (documented below) [facility] Medical History Bilateral carotid artery disease I77.9 - Disorder of arteries and arterioles, unspecified (ICD-10) Depression F32.A - Depression, unspecified (ICD-10) Anxiety F41.9 - Anxiety disorder, unspecified (ICD-10) COPD (chronic obstructive pulmonary disease) J44.9 - Chronic obstructive pulmonary disease, unspecified (ICD-10) Hyperlipidemia E78.5 - Hyperlipidemia, unspecified (ICD-10) Anemia D64.9 - Anemia, unspecified (ICD-10) Hypothyroidism E03.9 - Hypothyroidism, unspecified (ICD-10) Diabetes E11.9 - Type 2 diabetes mellitus without complications (ICD-10) Myocardial infarct March 2023 I21.9 - Acute myocardial infarction, unspecified (ICD-10) Hypertension I10 - Essential (primary) hypertension (ICD-10) Social History Smoking and tobacco status: Current every day smoker Tobacco type: cigarettes Smoking packs per day: 1 Smoking cigarettes per day: 20.0 Surgical History Status post spinal disc removal Z98.890 - Other specified postprocedural states (ICD-10) 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 - Acquired absence of other parts of urinary tract (ICD-10) Physical Exam Physical Exam Appearance: Reports Other (documented below if examined) Ill-appearing: Not Applicable (documented below if examined) Pain Distress: Not Applicable (documented below if examined) Eyes: Reports Other (documented below if examined) ENT: Reports Other (documented below if examined) Neck: Not Examined (documented below if examined) Respiratory: Reports Other (documented below if examined) Cardiovascular: Reports Other (documented below if examined) GI/: Reports Other (documented below if examined) Musculoskeletal: Reports Other (documented below if examined) Skin: Reports Other (documented below if examined) Neurological: Reports Other (documented below if examined) Psychiatric: Reports Other (documented below if examined) Critical Care Note Critical Care Note Total Critical Care Time (mins): 0 Course Course 08/26/23 22:16 08/26/23 22:16 Orders, Labs, Meds: Lab Review 08/26/23 08/26/23 08/27/23 22:16 22:24 01:00 WBC 10.51 H RBC 3.21 L Hgb 9.9 L Hct 30.3 L MCV 94.4 H MCH 30.8 MCHC 32.7 RDW Coeff of Sri 18.4 H Plt Count 336 Immature Gran % (Auto) 0.8 Neut % (Auto) 68.9 Lymph % (Auto) 14.8 [place] % (Auto) 10.8 H Eos % (Auto) 4.2 Baso % (Auto) 0.5 Neut # (Auto) 7.3 H Lymph # (Auto) 1.6 [place] # (Auto) 1.1 Eos # (Auto) 0.4 Baso # (Auto) 0.1 Immature Gran # (Auto) 0.1 PT 11.6 H INR 1.13 APTT 28.9 Sodium 135.9 Potassium 3.79 Chloride 100.8 Carbon Dioxide 29.8 Anion Gap 9.09 BUN 39.6 H Creatinine 1.67 H Estimated GFR (MDRD) 39.00 BUN/Creatinine Ratio 23.71 Glucose 103.5 Lactic Acid 0.72 Calcium 9.00 Magnesium 1.69 Total Bilirubin 0.66 AST 41.0 ALT 11.8 Alkaline Phosphatase 52.3 L Troponin I 0.017 NT-Pro-B Natriuret Pep 3560 H Total Protein 7.39 Albumin 3.55 Globulin 3.84 Albumin/Globulin Ratio 0.92 Urine Color Yellow Urine Clarity Clear Urine pH 7.0 Ur Specific [place] 1.015 Urine Protein 1+ H Urine Glucose (UA) Negative Urine Ketones Negative Urine Blood Negative Urine Nitrite Negative Urine Bilirubin Negative Urine Urobilinogen 0.2 Ur Leukocyte Esterase Negative Urine Microscopic RBC 0-2 Urine Microscopic WBC 0-2 Ur Squamous Epith Cells Not present Urine Bacteria Trace Influ A Molecular Assay Negative by naat Influ B Molecular Assay Negative by naat SARS CoV-2 RNA Rapid JESICA Negative Orders Category Date Time Status EKG-(ED ONLY) Stat CARDIO 08/26/23 22:05 Completed CBC W/ AUTO DIFF Stat LAB 08/26/23 22:16 Completed COMPREHENSIVE METABOLIC PANEL Stat LAB 08/26/23 22:16 Completed COVID [SARS COV-2 RNA RAPID JESICA] Stat LAB 08/26/23 22:24 Completed FLU A & B MOLECULAR [FLU A/B MOLECULAR] Stat LAB 08/26/23 22:24 Completed LACTIC ACID Stat LAB 08/26/23 22:16 Completed MAGNESIUM Stat LAB 08/26/23 22:16 Completed PROBNP ED [NT-PROBNP(ED)] Stat LAB 08/26/23 22:16 Completed PT WITH INR Stat LAB 08/26/23 22:16 Completed PTT [PARTIAL THROMBOPLASTIN TIME] Stat LAB 08/26/23 22:16 Completed TROPONIN I Stat LAB 08/26/23 22:16 Completed URINALYSIS C & S IF INDICATED Stat LAB 08/27/23 01:00 Completed Aspirin [Aspirin Chewable] Meds 08/26/23 22:05 Discontinued 324 mg PO ONCE STA Sodium Chloride 0.9% [Sodium Chloride] 500 ml Meds 08/26/23 22:05 Discontinued IV BOLUS CHEST, 1V AP ONLY Stat RADS 08/26/23 22:05 Completed Medications Discontinued Medications Generic Name Dose Route Start Last Admin Trade Name Freq PRN Reason Stop Dose Admin Aspirin 324 mg 08/26/23 22:05 08/26/23 22:29 Aspirin 81 Mg Tab.Chew PO 08/26/23 22:06 324 mg ONCE STA Administration Sodium Chloride 500 mls @ 500 mls/hr 08/26/23 22:05 08/27/23 00:37 Sodium Chloride IV 08/26/23 23:04 Infused BOLUS STA Infusion Vital Signs: Temp Pulse Resp BP Pulse Ox 08/26/23 21:58 97.6 F 51 L 16 128/48 L 94 L Discharge Plan Discharge Patient Disposition: PLACED OBSERVATION Discharge Problem: Acute dehydration Congestive heart failure Qualifiers: Heart failure type: unspecified Heart failure chronicity: unspecified Qualified Code(s): I50.9 - Heart failure, unspecified Prescriptions: No Action citalopram [Celexa] 40 MG tablet 60 mg PO DAILY tamsulosin 0.4 MG capsule 0.4 mg PO DAILY pantoprazole 40 MG tablet,delayed release (DR/EC) 40 mg PO BID omega 4-uwv-ooi-fish oil [Fish Oil] 300-1,000 mg capsule 1 cap PO DAILY aspirin [Lor Low Dose Aspirin] 81 mg tablet,delayed release (DR/EC) 81 mg PO DAILY levothyroxine [Euthyrox] 112 mcg tablet 112 mcg PO DAILY losartan [Cozaar] 100 mg tablet 50 mg PO BID calcitriol 0.25 mcg capsule 0.25 mcg PO DAILY loratadine [Allerclear] 10 mg tablet 10 mg PO DAILY atorvastatin 80 mg tablet 40 mg PO BEDTIME allopurinol 100 mg tablet 100 mg PO DAILY amlodipine 10 mg tablet 5 mg PO DAILY isosorbide mononitrate 30 mg tablet extended release 24 hr 30 mg PO DAILY hydralazine 100 mg tablet 100 mg PO BID magnesium oxide 400 mg magnesium capsule 400 mg PO DAILY nitroglycerin 0.4 mg tablet, sublingual 0.4 mg sublingual Q5-15M PRN (Reason: chest pain) Rx Instructions: do not exceed 3 doses per episode atenolol 25 mg tablet 12.5 mg PO DAILY Qty: 30 0RF Did you review [place] [employer] for ALL controlled substances?: Not Applicable ED Provider: SAMANTHA SANCHEZ Condition: Stable Physician Progress Note: Disclaimer: This note was dictated by speech recognition technology. Minor errors in collection systems administrator may be present. Please call and notify me immediately for clarification or corrections. CC: Generalized weakness and paresthesia HPI: This patient has been diagnosed with IN last month. He had stents placed. He was started on new heart antihypertensives and diuretic. The he has been diuresing as expected. He thinks that he is diuresing too much. He developed sudden onset of generalized paresthesia associated with shortness of breath yesterday. He is saying that his symptoms are similar to when he had the heart attack except that this time there is no chest pain. The problem list, allergies, current medications and pharmacy records were reviewed and updated. ROS is included above. PE: Vital signs reviewed as well as all nursing documentation. General: Awake, alert, no acute distress, not toxic appearing, appears weak and slightly dry Overall, the patient is atraumatic, has no deformities, has no focal deficits, has no inappropriate behavior. Respiratory: No distress, Cardiac: no edema or JVD, RRR, MDM: All results and reports for tests that were done in the emergency department have been reviewed and considered in the planning and disposition process. DD: Sepsis Viral syndrome Metabolic derangement Acute anemia Pneumonia UTI Cellulitis Meningitis Occult infection as in sinusitis, otitis, osteomyelitis, discitis Rheumatoid arthritis flare, SLE flare Debility Plan: Workup was ordered to identify the presence of: metabolic abnormalities(metabolic panel), infectious process or anemia (CBC), ACS (troponin, EKG), Organ failure (LFT, Renal functions), CHF (CXR, EKG), 500 mL of normal saline bolus Interpretation of tests: EKG was independently reviewed and interpreted and showed sinus bradycardia, normal axis, normal intervals, no chamber enlargement or hypertrophy, no signs of acute ischemic changes. CXR was independently reviewed and interpreted and showed improvement of infiltrates and aeration compared to last time. Labs were unremarkable except for slightly increased creatinine. His BNP is elevated at baseline. Further action: IV fluids were slowed down. The patient will be admitted for observation for gentle hydration. The hospitalist was paged twice but did not respond. The hospitalist director was contacted and he accepted the admission.
[2023-08-27 02:38] VITALS: BMI 19.4
[2023-08-27 05:27] LABS: BASOPHILS # (AUTO) 0.1 K/uL (0-0.2); BASOPHILS % (AUTO) 0.7 % (0.0-3.0); EOSINOPHILS # (AUTO) 0.6 K/ul (0.0-0.7); EOSINOPHILS % (AUTO) 6.3 % (0.0-7.0); HEMATOCRIT 28.8 % (42.0-52.0); HEMOGLOBIN 9.4 g/dl (14.0-18.0); IMMATURE GRANULOCYTE # (AUTO) 0.1 (0.0-1.0); IMMATURE GRANULOCYTE % (AUTO) 0.7 % (0.0-5.0); LYMPHOCYTES # (AUTO) 1.5 K/uL (0.60-3.4); LYMPHOCYTES % (AUTO) 17.2 (10.0-50.0); MEAN CORPUSCULAR HEMOGLOBIN 30.7 pg (27.0-31.0); MEAN CORPUSCULAR HGB CONC 32.6 (31.8-35.4); MEAN CORPUSCULAR VOLUME 94.1 fl (80.0-94.0); MONOCYTES # (AUTO) 1.1 K/uL (0.4-2.0); MONOCYTES % (AUTO) 12.2 (0-10); NEUTROPHILS # (AUTO) 5.6 K/ul (2.0-6.9); NEUTROPHILS % (AUTO) 62.9 % (42.2-75.2); PLATELET COUNT 309 10^3/uL (140-440); RDW COEFFICIENT OF VARIATION 18.4 % (11.6-14.8); RED BLOOD COUNT 3.06 10^6/ul (4.70-6.10); WHITE BLOOD COUNT 8.95 K/ul (4.2-10.2)
[2023-08-27 05:43] LABS: ALANINE AMINOTRANSFERASE 11.4 U/L (0-50); ALBUMIN 3.22 g/dL (3.5-5.0); ALKALINE PHOSPHATASE 49.3 U/L (56-119); ASPARTATE AMINO TRANSFERASE 24.8 U/L (17-59); BILIRUBIN,TOTAL 0.68 mg/dL (0.2-1.3); BLOOD UREA NITROGEN 33.9 mg/dL (9-20); CALCIUM 8.68 mg/dL (8.4-10.2); CARBON DIOXIDE 29.5 mmol/L (22-30.0); CHLORIDE 101.7 mmol/L (98-107); CREATININE 1.61 mg/dL (0.60-1.10); GLUCOSE 91.3 mg/dL (74-106); POTASSIUM 3.48 mmol/L (3.5-5.1); TOTAL PROTEIN 6.83 g/dL (6.3-8.2)
[2023-08-27] MEDS: SODIUM CHLORIDE 1,000 ML IV SCH ×2 (09:27→22:21)
--- NOTE | 2023-08-27 10:30 | PCM ---
Date of Service Date Seen by Provider: 08/27/23 Time Seen by Provider: 08:45 Admit Day/Time Admission Date: 08/27/23 Reason for Admission Chief Complaint: DEHYDRATION,CHF Hospital Provider Hospital Provider: MENDY NOEL, [facility] [place] Phys[place] Primary Care Physician: JAZZMINE MACILE History of Present Illness History of Present Illness: 83 yo male presented to the ER with complaints of weakness, shortness of breath, and paresthesias to lower extremities. Reports he had these symptoms when he had his MA in the past. States he did not eat or drink much yesterday due to having no energy to be able to get up to get a drink. Lives at home with his son. Has been taking his diuretic as prescribed for CHF. Denies having dark urine at home. Has also had episodes of dizziness. Denies any fever, chills, N/V/D. His BUN and creatinine were found to be slightly elevated. Viral swabs negative. BNP elevated at 3000s but does not clinically appear overloaded. Since admission, HR has been in 40s at times. Patent was supposed to decreased atenolol dose to 12.5 during last admission at this facility back in June and reports he has not been cutting his pills in half. Was also supposed to be referred to neurology but is unsure if his PCP did that. Has appointment with his Strategic Partnership Manager at [facility], Dr. Ashby on 09/04/23 Case Discussed With Case Discussed With: Patient's case was discussed with the ER Physicians, Dr. Van [facility] Medical History Bilateral carotid artery disease I77.9 - Disorder of arteries and arterioles, unspecified (ICD-10) Depression F32.A - Depression, unspecified (ICD-10) Anxiety F41.9 - Anxiety disorder, unspecified (ICD-10) COPD (chronic obstructive pulmonary disease) J44.9 - Chronic obstructive pulmonary disease, unspecified (ICD-10) Hyperlipidemia E78.5 - Hyperlipidemia, unspecified (ICD-10) Anemia D64.9 - Anemia, unspecified (ICD-10) Hypothyroidism E03.9 - Hypothyroidism, unspecified (ICD-10) Diabetes E11.9 - Type 2 diabetes mellitus without complications (ICD-10) Myocardial infarct March 2023 I21.9 - Acute myocardial infarction, unspecified (ICD-10) Hypertension I10 - Essential (primary) hypertension (ICD-10) Surgical History Status post spinal disc removal Z98.890 - Other specified postprocedural states (ICD-10) 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 - Acquired absence of other parts of urinary tract (ICD-10) Family History Other No known health problems Social History Smoking and tobacco status: Current every day smoker Tobacco type: cigarettes Smoking packs per day: 1 Smoking cigarettes per day: 20.0 Allergies Allergies Allergy/AdvReac Type Severity Reaction Status Date / Time No Known Allergies Allergy Verified 08/27/23 01:38 Current Medications Home Medications citalopram 40 mg tablet (Celexa) 60 mg PO DAILY 10/30/17 [History Confirmed 08/27/23 Last Taken Unknown] pantoprazole 40 mg tablet,delayed release 40 mg PO BID 10/30/17 [History Confirmed 08/27/23 Last Taken Unknown] tamsulosin 0.4 mg capsule 0.4 mg PO DAILY 10/30/17 [History Confirmed 08/27/23 Last Taken Unknown] allopurinol 100 mg tablet 100 mg PO DAILY 06/25/23 [History Confirmed 08/27/23 Last Taken Unknown] amlodipine 10 mg tablet 5 mg PO DAILY 06/25/23 [History Confirmed 08/27/23 Last Taken Unknown] aspirin 81 mg tablet,delayed release (Lor Low Dose Aspirin) 81 mg PO DAILY 06/25/23 [History Confirmed 08/27/23 Last Taken Unknown] atorvastatin 80 mg tablet 40 mg PO BEDTIME 06/25/23 [History Confirmed 08/27/23 Last Taken Unknown] calcitriol 0.25 mcg capsule 0.25 mcg PO DAILY 06/25/23 [History Confirmed 08/27/23 Last Taken Unknown] hydralazine 100 mg tablet 100 mg PO BID 06/25/23 [History Confirmed 08/27/23 Last Taken Unknown] isosorbide mononitrate 30 mg tablet,extended release 24 hr 30 mg PO DAILY 06/25/23 [History Confirmed 08/27/23 Last Taken Unknown] levothyroxine 112 mcg tablet (Euthyrox) 112 mcg PO DAILY 06/25/23 [History Confirmed 08/27/23 Last Taken Unknown] loratadine 10 mg tablet (Allerclear) 10 mg PO DAILY 06/25/23 [History Confirmed 08/27/23 Last Taken Unknown] losartan 100 mg tablet (Cozaar) 50 mg PO BID 06/25/23 [History Confirmed 08/27/23 Last Taken Unknown] magnesium oxide 400 mg PO DAILY 06/25/23 [History Confirmed 08/27/23 Last Taken Unknown] nitroglycerin 0.4 mg sublingual tablet 0.4 mg sublingual Q5-15M PRN chest pain 06/25/23 [History Confirmed 08/27/23 Last Taken Unknown] omega 8-box-wve-fish oil 300 mg-1,000 mg capsule (Fish Oil) 1 cap PO DAILY 06/25/23 [History Confirmed 08/27/23 Last Taken Unknown] atenolol 25 mg tablet 12.5 mg (1/2 x 25 mg) PO DAILY #30 tabs 06/27/23 [Rx Confirmed 08/27/23 Last Taken Unknown] furosemide 20 mg tablet 20 mg PO DAILY 08/27/23 [History Confirmed 08/27/23 Last Taken Unknown] Home Allopurinol (Allopurinol 100 Mg Tablet) 100 mg PO DAILY BERYL Amlodipine Besylate (Amlodipine Besylate 5 Mg Tablet) 5 mg PO DAILY BERYL Aspirin (Aspirin 81 Mg Tablet.Dr) 81 mg PO DAILYWM2 BERYL Atenolol (Atenolol 25 Mg Tablet) 12.5 mg PO DAILY BERYL Atorvastatin Calcium (Atorvastatin Calcium 20 Mg Tablet) 40 mg PO BEDTIME BERYL Citalopram Hydrobromide (Citalopram Hydrobromide 20 Mg Tablet) 60 mg PO DAILY BERYL Hydralazine HCl (Hydralazine Hcl 50 Mg Tablet) 100 mg PO BID BERYL Sodium Chloride (Sodium Chloride) 1,000 mls @ 75 mls/hr IV .[id number] BERYL Last Admin: 08/27/23 09:27 Dose: 75 mls/hr Isosorbide Mononitrate (Isosorbide Mononitrate 30 Mg Tab.Er.24h) 30 mg PO DAILY BERYL Levothyroxine Sodium (Levothyroxine Sodium 112 Mcg Tablet) 112 mcg PO QDAC2 BERYL Loratadine (Loratadine 10 Mg Tablet) 10 mg PO DAILY BERYL Losartan Potassium (Losartan Potassium 100 Mg Tablet) 50 mg PO BID BERYL Magnesium Oxide (Magnesium Oxide 400 Mg Tablet) 400 mg PO DAILY BERYL Non-Formulary Medication (Calcitriol) 0.25 mcg PO DAILY BERYL Pantoprazole Sodium (Pantoprazole Sodium 40 Mg Tablet.Dr) 40 mg PO BIDAC2 [facility] Sodium Chloride (0.9% Sodium Chloride 10 Ml Disp.Syrin) 1 syr IVF Q8HR BERYL Last Admin: 08/27/23 05:47 Dose: 1 syr Tamsulosin HCl (Tamsulosin Hcl 0.4 Mg Cap.Er.24h) 0.4 mg PO DAILY [facility] Discontinued Medications Aspirin (Aspirin 81 Mg Tab.Chew) 324 mg PO ONCE STA Stop: 08/26/23 22:06 Last Admin: 08/26/23 22:29 Dose: 324 mg Sodium Chloride (Sodium Chloride) 500 mls @ 500 mls/hr IV BOLUS STA Stop: 08/26/23 23:04 Last Infusion: 08/27/23 00:37 Dose: Infused Review of Systems Constitutional: Reports Fatigue and Weakness Head: Reports Normocephalic Eyes: Reports No symptoms Ears: Reports No symptoms Nose: Reports No symptoms Mouth: Reports No symptoms Throat: Reports No symptoms Cardiovascular: Reports No symptoms Respiratory: Reports Shortness of air (on exertion) Gastrointestinal: Reports No symptoms Genitourinary: Reports No Symptoms Musculoskeletal: Reports No symptoms Endocrine: Reports No symptoms Hematology: Reports No symptoms Immunology: Reports No symptoms Neurological: Reports Weakness and Other (paresthesias ) Psychiatric: Reports No symptoms Physical examination Most Recent Vital Signs: Most Recent Vital Signs Temperature 97.7 F 08/27/23 10:00 Temperature Source Oral 08/27/23 10:00 Temperature Source Oral 08/26/23 21:58 Pulse Rate 55 L 08/27/23 10:00 Respiratory Rate 17 08/27/23 10:00 Blood Pressure 150/48 H 08/27/23 10:00 Blood Pressure Mean 82 08/27/23 10:00 Blood Pressure Right Arm 144/51 08/27/23 02:14 Blood Pressure Location Left Arm 08/27/23 10:00 Blood Pressure Position Supine 08/27/23 10:00 O2 Sat by Pulse Oximetry 95 08/27/23 10:00 Oxygen Delivery Method Room Air 08/27/23 10:00 Height 6 ft 1 in 08/27/23 02:14 Weight 147 lb 7 oz 08/27/23 02:14 Telemetry Type Remote Telemetry 08/27/23 07:00 Telemetry Monitoring Continues 08/27/23 07:00 Irregular Telemetry Rate (Approximate) 40-50 BPM 08/27/23 07:00 Telemetry Heart Rate 53 L 08/27/23 02:34 Telemetry SPO2 97 06/26/23 01:00 EKG OH Interval 0.18 08/27/23 07:00 EKG QRS Interval 0.08 08/27/23 07:00 Telemetry Strip Reading [place] Arrhythmia with PAC 08/27/23 07:00 Appearance: Positive No Apparent Distress and Alert and Oriented x3 Skin: Positive Warm and Good Color HEENT: Positive Normocephalic, Atraumatic and PERRLA Neck: Positive Supple and Midline Trachea Chest/Lungs: Positive Symmetrical With Equal Breath Sounds, Clear to Au scultation Bilaterally and Good Air Movement all 4 Lung Reilly Heart: Positive RRR and Pulses Normal GI/: Positive Soft, Nontender, Bowel Sounds Normal and No Distention Musculoskeletal: Positive Not Examined Extremities: Positive Intact Peripheral Pulses, Stable Joints Without Laxity and Good ROM in All Joints Neurological: Positive Sensation Intact, Motor intact, Reflexes Intact, Alert, Oriented and Muscle Strength 5/5 in Upper and Lower Extremities Bilaterally Psychiatric: Positive Oriented x4, Appropriate Mood and Appropriate Affect Labs This Visit Labs This Visit: Labs This Visit 08/26/23 08/26/23 08/27/23 22:16 22:24 01:00 WBC 10.51 H RBC 3.21 L Hgb 9.9 L Hct 30.3 L MCV 94.4 H MCH 30.8 MCHC 32.7 RDW Coeff of Sri 18.4 H Plt Count 336 Immature Gran % (Auto) 0.8 Neut % (Auto) 68.9 Lymph % (Auto) 14.8 Clark % (Auto) 10.8 H Eos % (Auto) 4.2 Baso % (Auto) 0.5 Neut # (Auto) 7.3 H Lymph # (Auto) 1.6 Clark # (Auto) 1.1 Eos # (Auto) 0.4 Baso # (Auto) 0.1 Immature Gran # (Auto) 0.1 PT 11.6 H INR 1.13 APTT 28.9 Sodium 135.9 Potassium 3.79 Chloride 100.8 Carbon Dioxide 29.8 Anion Gap 9.09 BUN 39.6 H Creatinine 1.67 H Estimated GFR (MDRD) 39.00 BUN/Creatinine Ratio 23.71 Glucose 103.5 Lactic Acid 0.72 Calcium 9.00 Magnesium 1.69 Total Bilirubin 0.66 AST 41.0 ALT 11.8 Alkaline Phosphatase 52.3 L Troponin I 0.017 NT-Pro-B Natriuret Pep 3560 H Total Protein 7.39 Albumin 3.55 Globulin 3.84 Albumin/Globulin Ratio 0.92 Urine Color Yellow Urine Clarity Clear Urine pH 7.0 Ur Specific [place] 1.015 Urine Protein 1+ H Urine Glucose (UA) Negative Urine Ketones Negative Urine Blood Negative Urine Nitrite Negative Urine Bilirubin Negative Urine Urobilinogen 0.2 Ur Leukocyte Esterase Negative Urine Microscopic RBC 0-2 Urine Microscopic WBC 0-2 Ur Squamous Epith Cells Not present Urine Bacteria Trace Influ A Molecular Assay Negative by naat Influ B Molecular Assay Negative by naat SARS CoV-2 RNA Rapid JESICA Negative 08/27/23 05:03 WBC 8.95 RBC 3.06 L Hgb 9.4 L Hct 28.8 L MCV 94.1 H MCH 30.7 MCHC 32.6 RDW Coeff of Sri 18.4 H Plt Count 309 Immature Gran % (Auto) 0.7 Neut % (Auto) 62.9 Lymph % (Auto) 17.2 Clark % (Auto) 12.2 H Eos % (Auto) 6.3 Baso % (Auto) 0.7 Neut # (Auto) 5.6 Lymph # (Auto) 1.5 Clark # (Auto) 1.1 Eos # (Auto) 0.6 Baso # (Auto) 0.1 Immature Gran # (Auto) 0.1 PT INR APTT Sodium 137.0 Potassium 3.48 L Chloride 101.7 Carbon Dioxide 29.5 Anion Gap 9.28 BUN 33.9 H Creatinine 1.61 H Estimated GFR (MDRD) 41.00 BUN/Creatinine Ratio 21.05 Glucose 91.3 Lactic Acid Calcium 8.68 Magnesium Total Bilirubin 0.68 AST 24.8 ALT 11.4 Alkaline Phosphatase 49.3 L Troponin I NT-Pro-B Natriuret Pep Total Protein 6.83 Albumin 3.22 L Globulin 3.61 Albumin/Globulin Ratio 0.89 Urine Color Urine Clarity Urine pH Ur Specific [place] Urine Protein Urine Glucose (UA) Urine Ketones Urine Blood Urine Nitrite Urine Bilirubin Urine Urobilinogen Ur Leukocyte Esterase Urine Microscopic RBC Urine Microscopic WBC Ur Squamous Epith Cells Urine Bacteria Influ A Molecular Assay Influ B Molecular Assay SARS CoV-2 RNA Rapid JESICA Imaging Imaging: EXAM: PORTABLE CHEST HISTORY: Dyspnea COMPARISON: Single-view chest 07/15/2023 FINDINGS: The cardiomediastinal silhouette is stable The right lung is clear. There is improved aeration at the left lung base with likely residual effusion and adjacent consolidation. IMPRESSION: Improved aeration at the left lung base with likely residual small effusion with adjacent consolidation Review Statement Review Statement: I have independently reviewed and interpreted the labs/EKGs/imaging that were ordered by the ER provider. I have reviewed all outside records that are available currently in our EMR including imaging/notes/labs from previous visits. Plan Plan: 1. RUBEN - NS@75mL/hr, avoid nephrotoxins/hypotension, holding lasix at this time 2. Bradycardia - due to medication mismanagement, holding atenolol today, will resume at 12.5 tomorrow 3. CAD - Pt following Dr. Ashby at [facility], plan for PCI at later date but medically manage until then. [facility] to work up his dizziness. 4. CHF - unknown type, weigh daily, I&O, holding lasix due to #1, last echo 66- 70% EF 5. Anemia, chronic - [facility] note patient gets darbepoetin shots 60 mcg q4 weeks and follows with heme/onc outpatient. 6. Hypertension - Cont home meds 7. Hyperlipidemia - Cont home meds 8. Gout - Cont home meds 9. Hypothyroidism - Continue home meds 10. GERD - Cont home meds 11. BPH - Cont home meds DVT Prophylaxis: Ambulation Time Spent: Greater than 80 minutes spent with patient, 50% of the time spent with this patient was devoted to counseling and coordination of care. Advanced Care Plannin minutes spent discussing advance care planning. Disposition: Admit to: Med/surg Observation Discussed Plan of Care with Dr. Iva Bay DNR Medications Medication Orders: Medications Ordered Category Date Time Status 0.9 % Sodium Chloride [Saline Flush] Meds 08/27/23 05:00 Active 1 syr IVF Q8HR Allopurinol [Zyloprim] Meds 08/28/23 09:00 Active 100 mg PO DAILY Amlodipine Besylate [Norvasc] Meds 08/28/23 09:00 Active 5 mg PO DAILY Aspirin [Aspirin EC] Meds 08/28/23 07:30 Active 81 mg PO DAILYWM2 Atenolol [Tenormin] Meds 08/28/23 09:00 Active 12.5 mg PO DAILY Atorvastatin Calcium [Lipitor] Meds 08/27/23 21:00 Active 40 mg PO BEDTIME Citalopram Hydrobromide [Celexa] Meds 08/28/23 09:00 Ordered 60 mg PO DAILY Hydralazine HCl [Apresoline] Meds 08/27/23 21:00 Active 100 mg PO BID Isosorbide Mononitrate [Imdur] Meds 08/28/23 09:00 Active 30 mg PO DAILY Levothyroxine Sodium [Synthroid] Meds 08/28/23 06:00 Active 112 mcg PO QDAC2 Loratadine [Claritin] Meds 08/28/23 09:00 Active 10 mg PO DAILY Losartan Potassium [Cozaar] Meds 08/27/23 21:00 Active 50 mg PO BID Magnesium Oxide [Mag-Ox] Meds 08/28/23 09:00 Active 400 mg PO DAILY Pantoprazole Sodium [Protonix] Meds 08/27/23 17:00 Active 40 mg PO BIDAC2 Sodium Chloride 0.9% [Sodium Chloride] 1,000 ml Meds 08/27/23 09:30 Active IV 75 mls/hr Tamsulosin HCl [Flomax] Meds 08/28/23 09:00 Active 0.4 mg PO DAILY calcitriol Meds 08/28/23 09:00 Active 0.25 mcg PO DAILY
[2023-08-27] MEDS: PROTONIX PO SCH (16:33)
[2023-08-27] MEDS: APRESOLINE PO SCH (20:29)
[2023-08-27] MEDS: COZAAR PO SCH (20:30)
[2023-08-27] MEDS ORDERED: LIPITOR PO SCH (21:00)
[2023-08-28 02:17] VITALS: PULSE 57
[2023-08-28 05:10] LABS: BASOPHILS # (AUTO) 0.1 K/uL (0-0.2); BASOPHILS % (AUTO) 0.5 % (0.0-3.0); EOSINOPHILS # (AUTO) 0.5 K/ul (0.0-0.7); EOSINOPHILS % (AUTO) 4.6 % (0.0-7.0); HEMATOCRIT 30.8 % (42.0-52.0); HEMOGLOBIN 9.9 g/dl (14.0-18.0); IMMATURE GRANULOCYTE # (AUTO) 0.1 (0.0-1.0); IMMATURE GRANULOCYTE % (AUTO) 0.5 % (0.0-5.0); LYMPHOCYTES # (AUTO) 1.8 K/uL (0.60-3.4); LYMPHOCYTES % (AUTO) 16.5 (10.0-50.0); MEAN CORPUSCULAR HEMOGLOBIN 30.5 pg (27.0-31.0); MEAN CORPUSCULAR HGB CONC 32.1 (31.8-35.4); MEAN CORPUSCULAR VOLUME 94.8 fl (80.0-94.0); MONOCYTES # (AUTO) 1.2 K/uL (0.4-2.0); NEUTROPHILS # (AUTO) 7.4 K/ul (2.0-6.9); NEUTROPHILS % (AUTO) 66.9 % (42.2-75.2); PLATELET COUNT 287 10^3/uL (140-440); RDW COEFFICIENT OF VARIATION 18.4 % (11.6-14.8); RED BLOOD COUNT 3.25 10^6/ul (4.70-6.10); WHITE BLOOD COUNT 11.02 K/ul (4.2-10.2)
[2023-08-28] MEDS: PROTONIX PO SCH (05:21)
[2023-08-28 05:27] VITALS: BP 160/51; RESP 20; TEMP 98.1
[2023-08-28 05:31] LABS: ALANINE AMINOTRANSFERASE 11.7 U/L (0-50); ALBUMIN 3.25 g/dL (3.5-5.0); ALKALINE PHOSPHATASE 51.4 U/L (56-119); ASPARTATE AMINO TRANSFERASE 27.7 U/L (17-59); BILIRUBIN,TOTAL 0.45 mg/dL (0.2-1.3); BLOOD UREA NITROGEN 25.6 mg/dL (9-20); CALCIUM 8.52 mg/dL (8.4-10.2); CARBON DIOXIDE 27.3 mmol/L (22-30.0); CHLORIDE 104.1 mmol/L (98-107); CREATININE 1.25 mg/dL (0.60-1.10); GLUCOSE 106.2 mg/dL (74-106); POTASSIUM 3.64 mmol/L (3.5-5.1); SODIUM 136.9 mmol/L (134.5-145); TOTAL PROTEIN 6.85 g/dL (6.3-8.2)
[2023-08-28] MEDS ORDERED: SYNTHROID PO SCH (06:00)
[2023-08-28] MEDS ORDERED: ASPIRIN EC PO SCH (07:30)
[2023-08-28] MEDS: APRESOLINE PO SCH (08:34)
[2023-08-28] MEDS: COZAAR PO SCH (08:34)
[2023-08-28] MEDS ORDERED: TENORMIN PO SCH (09:00)
[2023-08-28] MEDS ORDERED: ZYLOPRIM PO SCH (09:00)
[2023-08-28] MEDS ORDERED: CELEXA PO SCH (09:00)
[2023-08-28] MEDS ORDERED: IMDUR PO SCH (09:00)
[2023-08-28] MEDS ORDERED: NORVASC PO SCH (09:00)
[2023-08-28] MEDS ORDERED: FLOMAX PO SCH (09:00)
[2023-08-28] MEDS ORDERED: CLARITIN PO SCH (09:00)
[2023-08-28] MEDS ORDERED: MAG-OX PO SCH (09:00)
--- NOTE | 2023-08-28 09:39 | DCSUM ---
Admission Date Admission Date: 08/27/23 Discharge Date Discharge Date: 08/28/23 Admission Diagnosis Admission Diagnosis: 1. RUBEN 2. Bradycardia 3. CAD 4. CHF 5. Anemia 6. Hypertension 7. Hyperlipidemia 8. Gout 9. Hypothyroidism 10. GERD 11. BPH Discharge Diagnosis Discharge Diagnosis: 1. RUBEN - Resolved 2. Bradycardia - Resolved 3. CAD - Chronic, stable 4. CHF - Chronic, stable 5. Anemia - Chronic, stable 6. Hypertension - Chronic, stable 7. Hyperlipidemia - Chronic, stable 8. Gout - Chronic, stable 9. Hypothyroidism - Chronic, stable 10. GERD - Chronic, stable 11. BPH - Chronic, stable Hospital Provider Hospital Provider: MENDY NOEL, [facility] Primary Care Physician Primary Care Physician: JAZZMINE MACIEL Summary of History and Physical Summary of History and Physical: 83 yo male presented to the ER with complaints of weakness, shortness of breath, and paresthesias to lower extremities. Reports he had these symptoms when he had his NC in the past. States he did not eat or drink much yesterday due to having no energy to be able to get up to get a drink. Lives at home with his son. Has been taking his diuretic as prescribed for CHF. Denies having dark urine at home. Has also had episodes of dizziness. Denies any fever, chills, N/V/D. His BUN and creatinine were found to be slightly elevated. Viral swabs negative. BNP elevated at 3000s but does not clinically appear overloaded. Since admission, HR has been in 40s at times. Patent was supposed to decreased atenolol dose to 12.5 during last admission at this facility back in June and reports he has not been cutting his pills in half. Was also supposed to be referred to neurology but is unsure if his PCP did that. Has appointment with his Apple Sorter at [facility], Dr. Ashby on 09/04/23 Hospital Course Subjective: During stay, patient received NS@75mL/hr for RUBEN/dehydration. Diuretics were held. Renal function improved today. For bradycardia, held atenolol yesterday due to taking full dose of 25. HR returned to 50s-60s. All symptoms resolved during stay. All other home medications were continued and no changes were made. Appearance: Pleasant, No Apparent Distress and Alert HEENT: MMM and Supple CVS: No Murmur and No Rubs Abdomen: Soft, Non-Tender and No Distention Respiratory: No Dyspnea Extremities: No Edema Vital Signs: Most Recent Vital Signs Temperature 98.1 F 08/28/23 05:27 Temperature Source Oral 08/28/23 05:27 Temperature Source Oral 08/26/23 21:58 Pulse Rate 57 L 08/28/23 05:27 Respiratory Rate 20 08/28/23 05:27 Blood Pressure 160/51 H 08/28/23 05:27 Blood Pressure Mean 87 08/28/23 05:27 Blood Pressure Right Arm 144/51 08/27/23 02:14 Blood Pressure Location Left Arm 08/28/23 05:27 Blood Pressure Position Supine 08/28/23 05:27 O2 Sat by Pulse Oximetry 94 L 08/28/23 05:27 Oxygen Delivery Method Room Air 08/28/23 08:54 Height 6 ft 1 in 08/27/23 02:14 Weight 147 lb 7 oz 08/27/23 02:14 Telemetry Type Remote Telemetry 08/28/23 07:00 Telemetry Monitoring Continues 08/28/23 07:00 Irregular Telemetry Rate (Approximate) 40-50 BPM 08/27/23 07:00 Telemetry Heart Rate 55 L 08/28/23 07:00 Telemetry SPO2 93 08/27/23 19:00 EKG AR Interval 0.18 08/28/23 07:00 EKG QRS Interval 0.07 08/28/23 07:00 Telemetry Strip Reading SR/SB 08/28/23 07:00 Lab Results Last 24 Hours: 08/28/23 04:55 WBC 11.02 H RBC 3.25 L Hgb 9.9 L Hct 30.8 L MCV 94.8 H MCH 30.5 MCHC 32.1 RDW Coeff of Sri 18.4 H Plt Count 287 Immature Gran % (Auto) 0.5 Neut % (Auto) 66.9 Lymph % (Auto) 16.5 Petroleum % (Auto) 11.0 H Eos % (Auto) 4.6 Baso % (Auto) 0.5 Neut # (Auto) 7.4 H Lymph # (Auto) 1.8 Petroleum # (Auto) 1.2 Eos # (Auto) 0.5 Baso # (Auto) 0.1 Immature Gran # (Auto) 0.1 Sodium 136.9 Potassium 3.64 Chloride 104.1 Carbon Dioxide 27.3 Anion Gap 9.14 BUN 25.6 H Creatinine 1.25 H Estimated GFR (MDRD) 55.00 BUN/Creatinine Ratio 20.48 Glucose 106.2 H Calcium 8.52 Total Bilirubin 0.45 AST 27.7 ALT 11.7 Alkaline Phosphatase 51.4 L Total Protein 6.85 Albumin 3.25 L Globulin 3.60 Albumin/Globulin Ratio 0.90 Discharge Instructions Discharge Planning: Discharge Planning > 40 minutes If patient is discharged with left ventricular systolic dysfunction: NA Discharged with a beta perry? [] If no, why not? [] Discharged with an carlos/arb? [] If no, why not? [] DX: RUBEN, BRADYCARDIA ACTIVITY KENA CARDIAC DIET FOLLOW-UP PCP NEXT WEEK AND CARDIOLOGY SCHEDULED Discharge Medications: Medications at Discharge (Home Meds & RX) citalopram 40 mg tablet (Celexa) 60 mg PO DAILY 10/30/17 pantoprazole 40 mg tablet,delayed release 40 mg PO BID 10/30/17 tamsulosin 0.4 mg capsule 0.4 mg PO DAILY 10/30/17 allopurinol 100 mg tablet 100 mg PO DAILY 06/25/23 amlodipine 10 mg tablet 5 mg PO DAILY 06/25/23 aspirin 81 mg tablet,delayed release (Lor Low Dose Aspirin) 81 mg PO DAILY 06/25/23 atorvastatin 80 mg tablet 40 mg PO BEDTIME 06/25/23 calcitriol 0.25 mcg capsule 0.25 mcg PO DAILY 06/25/23 hydralazine 100 mg tablet 100 mg PO BID 06/25/23 isosorbide mononitrate 30 mg tablet,extended release 24 hr 30 mg PO DAILY 06/25/23 levothyroxine 112 mcg tablet (Euthyrox) 112 mcg PO DAILY 06/25/23 loratadine 10 mg tablet (Allerclear) 10 mg PO DAILY 06/25/23 losartan 100 mg tablet (Cozaar) 50 mg PO BID 06/25/23 magnesium oxide 400 mg PO DAILY 06/25/23 nitroglycerin 0.4 mg sublingual tablet 0.4 mg sublingual Q5-15M PRN chest pain 06/25/23 omega 6-fri-nob-fish oil 300 mg-1,000 mg capsule (Fish Oil) 1 cap PO DAILY 06/25/23 atenolol 25 mg tablet 12.5 mg (1/2 x 25 mg) PO DAILY #30 tabs 10/21/23 furosemide 20 mg tablet 20 mg PO DAILY 08/27/23 atenolol 25 mg tablet 12.5 mg (1/2 x 25 mg) PO DAILY #30 tabs 08/28/23 Discharge Plan Discharge Discharge Orders: Discharge Patient (ONCE); Ordered 08/28/23 Ordered By: PINEDA MACIEL Activity Restrictions/Additional Instructions: Cardiac diet. Continue to drink plenty of water. Activity as tolerated Follow-up with PCP next week and Cardiology next week as previously scheduled. MEDICATIONS: A new prescription for your atenolol was sent in. BE SURE TO CUT ATENOLOL 25 MG IN HALF, PRESCRIBED DOSE IS 12.5 MG DAILY. THIS MEDICATION IS DROPPING YOUR HEART RATE TOO LOW ON THE 25 MG DOSE. Instructions: Dehydration (GEN), Bradycardia (GEN) Patient Disposition: HOME WITH FAMILY CARE Prescriptions: New atenolol 25 mg tablet 12.5 mg PO DAILY Qty: 30 0RF Continued citalopram [Celexa] 40 MG tablet 60 mg PO DAILY tamsulosin 0.4 MG capsule 0.4 mg PO DAILY pantoprazole 40 MG tablet,delayed release (DR/EC) 40 mg PO BID furosemide 20 mg tablet 20 mg PO DAILY omega 1-iqv-qax-fish oil [Fish Oil] 300-1,000 mg capsule 1 cap PO DAILY aspirin [Lor Low Dose Aspirin] 81 mg tablet,delayed release (DR/EC) 81 mg PO DAILY levothyroxine [Euthyrox] 112 mcg tablet 112 mcg PO DAILY losartan [Cozaar] 100 mg tablet 50 mg PO BID calcitriol 0.25 mcg capsule 0.25 mcg PO DAILY loratadine [Allerclear] 10 mg tablet 10 mg PO DAILY atorvastatin 80 mg tablet 40 mg PO BEDTIME allopurinol 100 mg tablet 100 mg PO DAILY amlodipine 10 mg tablet 5 mg PO DAILY isosorbide mononitrate 30 mg tablet extended release 24 hr 30 mg PO DAILY hydralazine 100 mg tablet 100 mg PO BID magnesium oxide 400 mg magnesium capsule 400 mg PO DAILY nitroglycerin 0.4 mg tablet, sublingual 0.4 mg sublingual Q5-15M PRN (Reason: chest pain) Rx Instructions: do not exceed 3 doses per episode atenolol 25 mg tablet 12.5 mg PO DAILY Qty: 30 0RF Did you review [place] [employer] WORKER for ALL controlled substances?: No Discussed opioids are addictive and Narcan is available by prescription or from pharmacy.: No Condition: Stable
== END 2023-08-28 10:00 | disposition home or self-care (01) ==
LOC: MEDSURG B 21:57 → ED 21:57 → MEDSURG B 08-27 02:10
PROVIDERS: ADMIT Hospitalist; ATTEND Nurse Practitioner Family
DX: K21.9 Gastro-esophageal reflux disease without esophagitis; D64.9 Anemia, unspecified; F17.210 Nicotine dependence, cigarettes, uncomplicated; E86.0 Dehydration; E03.9 Hypothyroidism, unspecified; M10.9 Gout, unspecified; N17.9 Acute kidney failure, unspecified; Z20.822 Contact with and (suspected) exposure to COVID-19; I50.9 Heart failure, unspecified; Z95.5 Presence of coronary angioplasty implant and graft; R00.1 Bradycardia, unspecified; I25.10 Atherosclerotic heart disease of native coronary artery without angina pectoris; E78.5 Hyperlipidemia, unspecified; N40.0 Benign prostatic hyperplasia without lower urinary tract symptoms; I10 Essential (primary) hypertension

== ENCOUNTER 2023-10-07 02:26 | Inpatient (IN) ==
[2023-10-07 03:12] LABS: BASOPHILS % (AUTO) 0.4 % (0.0-3.0); EOSINOPHILS # (AUTO) 0.6 K/ul (0.0-0.7); EOSINOPHILS % (AUTO) 6.2 % (0.0-7.0); HEMATOCRIT 30.3 % (42.0-52.0); HEMOGLOBIN 9.8 g/dl (14.0-18.0); IMMATURE GRANULOCYTE # (AUTO) 0.1 (0.0-1.0); IMMATURE GRANULOCYTE % (AUTO) 0.7 % (0.0-5.0); LYMPHOCYTES # (AUTO) 1.3 K/uL (0.60-3.4); LYMPHOCYTES % (AUTO) 13.2 (10.0-50.0); MEAN CORPUSCULAR HEMOGLOBIN 29.6 pg (27.0-31.0); MEAN CORPUSCULAR HGB CONC 32.3 (31.8-35.4); MEAN CORPUSCULAR VOLUME 91.5 fl (80.0-94.0); MONOCYTES # (AUTO) 1.2 K/uL (0.4-2.0); MONOCYTES % (AUTO) 12.5 (0-10); NEUTROPHILS # (AUTO) 6.5 K/ul (2.0-6.9); PLATELET COUNT 268 10^3/uL (140-440); RDW COEFFICIENT OF VARIATION 19.4 % (11.6-14.8); RED BLOOD COUNT 3.31 10^6/ul (4.70-6.10); WHITE BLOOD COUNT 9.65 K/ul (4.2-10.2)
[2023-10-07 03:14] LABS: BILIRUBIN,URINE Negative (NEGATIVE); CLARITY,URINE Clear (CLEAR); COLOR,URINE Yellow (YELLOW); GLUCOSE, URINE (UA) Negative (NEGATIVE); KETONES,URINE Negative (NEGATIVE); LEUKOCYTE ESTERASE ,URINE Negative (NEGATIVE); NITRITE,URINE Negative (NEGATIVE); PH,URINE 5.5 (5-9); PROTEIN,URINE 1+ (NEGATIVE); URINE, BLOOD Negative (NEGATIVE); UROBILINOGEN,URINE 0.2 (0.2)
[2023-10-07 03:20] LABS: SQUAMOUS EPITHELIAL CELL,UR NOT PRESENT (0-5); URINE RBC, MICROSCOPIC 0-2 (0-2)
[2023-10-07 03:21] LABS: MUCUS,URINE TRACE (NOT PRESENT)
--- NOTE | 2023-10-07 03:21 | ED.PDOC ---
General <PRINCE AUGUSTINE DO - Last Filed: 10/08/23 11:26> ED Provider: Dr. PRINCE AUGUSTINE DO Chief Complaint: Shortness of Air Stated Complaint: Patient is a 83 yo M here for LE weakness, dizziness, headache and discomfort Patient arrives afebrile and vitally stable by EMS from [facility] He reports "They did not do anything, they would not help me and I did not see a doctor, son agrees and reports he was not given dishcarge paperwork." I called [facility] spoke to Dr. Hogan, he reports this is untrue, the patient was seen by [facility] 10/04/23 and yesterday at [address] Hogan reported multiple medical complaints, patient complained of same things, was put on augmentin for inner ear infection Dr. 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 He had 4x CV stenting at [facility] last month for planned cath per son. Time Seen by Provider: 10/07/23 02:53 Information Source: Patient and Family Primary Care Provider: JAZZMINE MACIEL What is Opioid Naive?: *Opioid Naive implies the patient is not already taking opioids or not chronically receiving opioids on a daily basis. *PRN dosing is not "usually" associated with tolerance. *Patients are at higher risk of over-sedation and aspiration. What is Opioid Tolerant?: *Opioid Tolerance implies less than the expected response to an opioid. *Acquired tolerance is defined by the patient taking 60mg of oral morphine daily (or equianalgesic dose of another opioid) for 1 week or more. *Often associated with chronic pain. *May take more than usual dose to achieve desired pain control. <JUSTINE VASQUEZ MD - Last Filed: 10/07/23 08:21> Nursing and Triage Documentation Reviewed and Agree: Yes Review of Systems <PRINCE AUGUSTINE DO - Last Filed: 10/08/23 11:26> Review Of Systems Constitutional: Reports Weakness; Denies Chills or Fever Eyes: Denies Blindness or Drainage Ears, Nose, Mouth, Throat: Denies Ear pain or Nose pain Respiratory: Denies Cough or Wheezing Cardiac: Denies Palpitations or Syncope GI: Denies Abdominal pain, Constipated or Diarrhea : Denies Burning or Discharge Musculoskeletal: Denies Back pain or Joint pain Skin: Denies Bruising or Rash Neurological: Reports Headache and Weakness; Denies Anxiety or Depressed Endocrine: Reports No symptoms Hematologic/Lymphatic: Reports No symptoms All Other Systems: Reviewed and Negative PFSH <PRINCE AUGUSTINE DO - Last Filed: 10/08/23 11:26> Medical History History of aortic stenosis Z86.79 - Personal history of other diseases of the circulatory system (ICD- 10) Bilateral carotid artery disease I77.9 - Disorder of arteries and arterioles, unspecified (ICD-10) Depression F32.A - Depression, unspecified (ICD-10) Anxiety F41.9 - Anxiety disorder, unspecified (ICD-10) COPD (chronic obstructive pulmonary disease) J44.9 - Chronic obstructive pulmonary disease, unspecified (ICD-10) Hyperlipidemia E78.5 - Hyperlipidemia, unspecified (ICD-10) Anemia D64.9 - Anemia, unspecified (ICD-10) Hypothyroidism E03.9 - Hypothyroidism, unspecified (ICD-10) Diabetes E11.9 - Type 2 diabetes mellitus without complications (ICD-10) Myocardial infarct March 2023 I21.9 - Acute myocardial infarction, unspecified (ICD-10) Hypertension I10 - Essential (primary) hypertension (ICD-10) Family History Other No known health problems Social History Smoking and tobacco status: Current every day smoker Tobacco type: cigarettes Smoking packs per day: 1 Smoking cigarettes per day: 20.0 Surgical History History of coronary artery stent placement Z95.5 - Presence of coronary angioplasty implant and graft (ICD-10) Status post spinal disc removal Z98.890 - Other specified postprocedural states (ICD-10) 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 - Acquired absence of other parts of urinary tract (ICD-10) Physical Exam <PRINCE AUGUSTINE DO - Last Filed: 10/08/23 11:26> Physical Exam Appearance: Reports Well-appearing and Well-nourished Ill-appearing: Not Applicable Pain Distress: Not Applicable Eyes: Reports KINSEY, EOMI and Conjunctiva clear ENT: Reports Ears normal, Nose normal and Oropharynx normal Neck: Supple Respiratory: Reports Airway patent and Breath sounds clear; Denies Crackles or Rhonchi Cardiovascular: Reports RRR and Pulses normal GI/: Reports Soft and Nontender Musculoskeletal: Reports Normal strength and ROM intact Skin: Reports Warm and Dry Neurological: Reports Sensation intact and Motor intact Psychiatric: Reports Affect appropriate and Mood appropriate Interpretation <PRINCE AUGUSTINE DO - Last Filed: 10/08/23 11:26> EKG Interpretation EKG Interpretation By: ED Physician Time of EKG #1: 02:49 Interpretation: No stemi, sinus bradcardia rate 56 with sinus arrythmia. Physician Notification <JUSTINE VASQUEZ MD - Last Filed: 10/07/23 08:21> Case Discussed Physician Notified: Discussed with Hussain MONTELONGO at 0 815 Time of Notification: 08:15 Comments: Discussed all laboratory data patient's recent emergency room visits will admit to observation Critical Care Note <JUSTINE VASQUEZ MD - Last Filed: 10/07/23 08:21> Critical Care Note Total Critical Care Time (mins): 0 Course <PRINCE AUGUSTINE DO - Last Filed: 10/08/23 11:26> Course 10/08/23 05:17 10/08/23 05:17 Orders, Labs, Meds: Lab Review 10/07/23 10/07/23 10/07/23 03:00 03:01 03:40 WBC 9.65 RBC 3.31 L Hgb 9.8 L Hct 30.3 L MCV 91.5 MCH 29.6 MCHC 32.3 RDW Coeff of Sri 19.4 H Plt Count 268 Immature Gran % (Auto) 0.7 Neut % (Auto) 67.0 Lymph % (Auto) 13.2 [place] % (Auto) 12.5 H Eos % (Auto) 6.2 Baso % (Auto) 0.4 Neut # (Auto) 6.5 Lymph # (Auto) 1.3 [place] # (Auto) 1.2 Eos # (Auto) 0.6 Baso # (Auto) 0.0 Immature Gran # (Auto) 0.1 Sodium 134.0 L Potassium 3.18 L Chloride 99.3 Carbon Dioxide 31.4 H Anion Gap 6.48 BUN 45.6 H Creatinine 1.82 H Estimated GFR (MDRD) 36.00 BUN/Creatinine Ratio 25.05 Glucose 102.8 Calcium 9.42 Magnesium Total Bilirubin 0.92 AST 58.6 ALT 17.0 Alkaline Phosphatase 51.0 L Total Creatine Kinase 60.8 Troponin I 0.023 NT-Pro-B Natriuret Pep 4870 H Total Protein 7.14 Albumin 3.72 Globulin 3.42 Albumin/Globulin Ratio 1.08 TSH 2.320 Free T4 2.49 H Urine Color Yellow Urine Clarity Clear Urine pH 5.5 Ur Specific [place] 1.015 Urine Protein 1+ H Urine Glucose (UA) Negative Urine Ketones Negative Urine Blood Negative Urine Nitrite Negative Urine Bilirubin Negative Urine Urobilinogen 0.2 Ur Leukocyte Esterase Negative Urine Microscopic RBC 0-2 Ur Squamous Epith Cells Not present Urine Mucus Trace Adenovirus (PCR) Not detected B. pertussis DNA (PCR) Not detected B.parapertussis DNA PCR Not detected C. pneumoniae DNA (PCR) Not detected Coronavirus OC43 (PCR) Not detected Coronavirus HKU1 (PCR) Not detected Coronavirus 229E (PCR) Not detected Coronavirus NL63 (PCR) Not detected Human Metapneumovir PCR Not detected Influenza Type A (PCR) Not detected Influenza B (RT-PCR) Not detected M. pneumoniae (PCR) Not detected Parainfluenza 1 (PCR) Not detected Parainfluenza 2 (PCR) Not detected Parainfluenza 3 (PCR) Not detected Parainfluenza 4 (PCR) Not detected RSV (PCR) Not detected Entero/Rhino (PCR) Not detected SARS-CoV-2 (PCR) Not detected 10/07/23 10/08/23 05:23 05:17 WBC 11.64 H RBC 3.45 L Hgb 10.3 L Hct 31.3 L MCV 90.7 MCH 29.9 MCHC 32.9 RDW Coeff of Sri 19.6 H Plt Count 221 Immature Gran % (Auto) 0.5 Neut % (Auto) 69.2 Lymph % (Auto) 12.5 [place] % (Auto) 11.5 H Eos % (Auto) 5.8 Baso % (Auto) 0.5 Neut # (Auto) 8.0 H Lymph # (Auto) 1.5 [place] # (Auto) 1.3 Eos # (Auto) 0.7 Baso # (Auto) 0.1 Immature Gran # (Auto) 0.1 Sodium 134.0 L Potassium 3.97 Chloride 104.0 Carbon Dioxide 27.8 Anion Gap 6.17 BUN 36.4 H Creatinine 1.71 H Estimated GFR (MDRD) 38.00 BUN/Creatinine Ratio 21.28 Glucose 103.2 Calcium 9.10 Magnesium 1.66 Total Bilirubin 1.02 AST 44.0 ALT 15.9 Alkaline Phosphatase 51.2 L Total Creatine Kinase Troponin I 0.023 NT-Pro-B Natriuret Pep Total Protein 6.85 Albumin 3.43 L Globulin 3.42 Albumin/Globulin Ratio 1.00 TSH Free T4 Urine Color Urine Clarity Urine pH Ur Specific [place] Urine Protein Urine Glucose (UA) Urine Ketones Urine Blood Urine Nitrite Urine Bilirubin Urine Urobilinogen Ur Leukocyte Esterase Urine Microscopic RBC Ur Squamous Epith Cells Urine Mucus Adenovirus (PCR) B. pertussis DNA (PCR) B.parapertussis DNA PCR C. pneumoniae DNA (PCR) Coronavirus OC43 (PCR) Coronavirus HKU1 (PCR) Coronavirus 229E (PCR) Coronavirus NL63 (PCR) Human Metapneumovir PCR Influenza Type A (PCR) Influenza B (RT-PCR) M. pneumoniae (PCR) Parainfluenza 1 (PCR) Parainfluenza 2 (PCR) Parainfluenza 3 (PCR) Parainfluenza 4 (PCR) RSV (PCR) Entero/Rhino (PCR) SARS-CoV-2 (PCR) Orders Category Date Time Status ADMIT OBSERVATION [PLACE PATIENT OBSERVATION] .TO ADMISSION 10/07/23 08:21 Active MEDSURG (MONITORED BED) EKG-(ED ONLY) Stat CARDIO 10/07/23 02:53 Completed TELEMETRY MONITORING TELE CARE 10/07/23 08:21 Active REGULAR DIET DIETARY 10/07/23 Lunch Ordered CONSULT COMPUTER ARTIST ONCE COMPUTER ARTIST 10/07/23 09:39 Active CBC W/ AUTO DIFF DAILY@0600 LAB 10/08/23 05:17 Completed CBC W/ AUTO DIFF DAILY@0600 LAB 10/09/23 06:00 Ordered CBC W/ AUTO DIFF Stat LAB 10/07/23 03:00 Completed COMPREHENSIVE METABOLIC PANEL DAILY@0600 LAB 10/08/23 05:17 Completed COMPREHENSIVE METABOLIC PANEL DAILY@0600 LAB 10/09/23 06:00 Ordered COMPREHENSIVE METABOLIC PANEL Stat LAB 10/07/23 03:00 Completed CREATINE KINASE Stat LAB 10/07/23 03:00 Completed FREE T4 (FREE THYROXINE) Stat LAB 10/07/23 03:00 Completed MAGNESIUM Routine LAB 10/07/23 05:23 Completed PROBNP ED [NT-PROBNP(ED)] Stat LAB 10/07/23 03:00 Completed RESPIRATORY PANEL 2.1 (PCR) Stat LAB 10/07/23 03:40 Completed TROPONIN I Stat LAB 10/07/23 03:00 Completed TROPONIN I Stat LAB 10/07/23 05:23 Completed TSH [THYROID STIMULATING HORMONE] Stat LAB 10/07/23 03:00 Completed UA [URINALYSIS C & S IF INDICATED] Stat LAB 10/07/23 03:01 Completed Acetaminophen [Tylenol] Meds 10/08/23 07:42 Active 650 mg PO Q6H PRN Allopurinol [Zyloprim] Meds 10/07/23 12:00 Active 100 mg PO DAILY Amlodipine Besylate [Norvasc] Meds 10/07/23 12:00 Active 5 mg PO DAILY Amoxicillin/Potassium Clav [Augmentin 875-125 mg Tab] Meds 10/07/23 12:00 Active 1 tab PO BIDWM2 Aspirin [Aspirin EC] Meds 10/07/23 12:00 Active 81 mg PO DAILYWM2 Atenolol [Tenormin] Meds 10/07/23 12:00 Active 12.5 mg PO DAILY Atorvastatin Calcium [Lipitor] Meds 10/07/23 21:00 Active 40 mg PO BEDTIME Citalopram Hydrobromide [Celexa] Meds 10/07/23 12:00 Active 60 mg PO DAILY Hydralazine HCl [Apresoline] Meds 10/07/23 12:00 Active 100 mg PO BID Isosorbide Mononitrate [Imdur] Meds 10/07/23 12:00 Active 30 mg PO DAILY Levothyroxine Sodium [Synthroid] Meds 10/07/23 12:00 Active 112 mcg PO QDAC2 Loratadine [Claritin] Meds 10/07/23 12:00 Active 10 mg PO DAILY Losartan Potassium [Cozaar] Meds 10/07/23 12:00 Active 50 mg PO BID Magnesium Oxide [Mag-Ox] Meds 10/07/23 12:00 Active 400 mg PO DAILY [place]-3/Dha/Epa/Fish Oil [[place]-3 Fish Oil] Meds 10/07/23 12:00 Active 1,000 mg PO DAILY Ondansetron HCl/Pf [Zofran 4 mg/2 ml] Meds 10/07/23 09:43 Active 4 mg IVP Q6H PRN Pantoprazole Sodium [Protonix] Meds 10/07/23 12:00 Active 40 mg PO BIDAC2 Potassium Chloride [K-Dur] Meds 10/07/23 03:55 Discontinued 40 meq PO ONCE ONE Ringers Lactated Solution [Lactated Ringers] 1,000 ml Meds 10/07/23 10:00 Active IV 100 mls/hr Saccharomyces Boulardii [Florastor] Meds 10/07/23 12:00 Active 250 mg PO BID Tamsulosin HCl [Flomax] Meds 10/07/23 12:00 Active 0.4 mg PO DAILY calcitriol Meds 10/08/23 09:00 Active 0.25 mcg PO DAILY ticagrelor [Brilinta] Meds 10/07/23 21:00 Active 90 mg PO BID RESUSCITATION STATUS Routine OTHERS 10/07/23 09:[address] HEAD W/O CONTRAST Stat RADS 10/07/23 02:53 Completed CXR [CHEST, 2 VIEWS PA & LAT] Stat RADS 10/07/23 03:10 Completed SHOULDER, LEFT MIN 2V Stat RADS 10/07/23 10:28 Completed OT CONSULTATION Routine THERAPIES 10/07/23 Ordered OT EVALUATION Routine THERAPIES 10/07/23 10:31 Ordered PT CONSULT Routine THERAPIES 10/07/23 16:11 Completed PT INPATIENT EVALUATION Routine THERAPIES 10/07/23 16:11 Completed Medications Generic Name Dose Route Start Last Admin Trade Name Freq PRN Reason Stop Dose Admin Acetaminophen 650 mg 10/08/23 07:42 10/08/23 08:46 Acetaminophen 325 Mg Tablet PO 650 mg Q6H PRN Administration Mild Pain Allopurinol 100 mg 10/07/23 12:00 10/08/23 08:50 Allopurinol 100 Mg Tablet PO 100 mg DAILY BERYL Administration Amlodipine Besylate 5 mg 10/07/23 12:00 10/08/23 08:50 Amlodipine Besylate 5 Mg Tablet PO 5 mg DAILY BERYL Administration Amoxicillin/Clavulanate Potassium 1 tab 10/07/23 12:00 10/08/23 08:49 Amoxicillin/Potassium Clav 875/125 Mg Tablet PO 10/15/23 22:00 1 tab BIDWM2 BERYL Administration Aspirin 81 mg 10/07/23 12:00 10/08/23 08:49 Aspirin 81 Mg Tablet.Dr PO 81 mg DAILYWM2 BERYL Administration Atenolol 12.5 mg 10/07/23 12:00 10/08/23 08:59 Atenolol 25 Mg Tablet PO 12.5 mg DAILY BERYL Administration Atorvastatin Calcium 40 mg 10/07/23 21:00 10/07/23 20:33 Atorvastatin Calcium 20 Mg Tablet PO 40 mg BEDTIME BERYL Administration Citalopram Hydrobromide 60 mg 10/07/23 12:00 10/08/23 08:49 Citalopram Hydrobromide 20 Mg Tablet PO 60 mg DAILY BERYL Administration Fish Oil 1,000 mg 10/07/23 12:00 10/08/23 08:50 [place]-3/Dha/Epa/Fish Oil 1,000 Mg Capsule PO 1,000 mg DAILY BERYL Administration Hydralazine HCl 100 mg 10/07/23 12:00 10/08/23 08:49 Hydralazine Hcl 50 Mg Tablet PO 100 mg BID BERYL Administration Lactated Ringer's 1,000 mls @ 100 mls/hr 10/07/23 10:00 10/08/23 05:57 Lactated Ringers IV 100 mls/hr .Q10H BERYL Administration Isosorbide Mononitrate 30 mg 10/07/23 12:00 10/08/23 08:49 Isosorbide Mononitrate 30 Mg Tab.Er.24h PO 30 mg DAILY BERYL Administration Levothyroxine Sodium 112 mcg 10/07/23 12:00 10/08/23 05:57 Levothyroxine Sodium 112 Mcg Tablet PO 112 mcg QDAC2 BERYL Administration Loratadine 10 mg 10/07/23 12:00 10/08/23 08:50 Loratadine 10 Mg Tablet PO 10 mg DAILY BERYL Administration Losartan Potassium 50 mg 10/07/23 12:00 10/08/23 08:50 Losartan Potassium 100 Mg Tablet PO 50 mg BID BERYL Administration Magnesium Oxide 400 mg 10/07/23 12:00 10/08/23 08:49 Magnesium Oxide 400 Mg Tablet PO 400 mg DAILY BERYL Administration Non-Formulary Medication 90 mg 10/07/23 21:00 10/08/23 09:11 Ticagrelor [Brilinta] PO Not Given BID BERYL Non-Formulary Medication 0.25 mcg 10/08/23 09:00 10/08/23 09:06 Calcitriol PO Not Given DAILY BERYL Ondansetron HCl 4 mg 10/07/23 09:43 Ondansetron Hcl/Pf 4 Mg/2 Ml Sdv IVP Q6H PRN Nausea / Vomiting Pantoprazole Sodium 40 mg 10/07/23 12:00 10/08/23 05:57 Pantoprazole Sodium 40 Mg Tablet.Dr PO 40 mg BIDAC2 BERYL Administration Saccharomyces Boulardii 250 mg 10/07/23 12:00 10/08/23 08:48 Saccharomyces Boulardii 250 Mg Capsule PO 250 mg BID BERYL Administration Tamsulosin HCl 0.4 mg 10/07/23 12:00 10/08/23 08:50 Tamsulosin Hcl 0.4 Mg Cap.Er.24h PO 0.4 mg DAILY BERYL Administration Discontinued Medications Generic Name Dose Route Start Last Admin Trade Name Freq PRN Reason Stop Dose Admin Potassium Chloride 40 meq 10/07/23 03:55 10/07/23 04:05 Potassium Chloride 20 Meq Tab PO 10/07/23 03:56 40 meq ONCE ONE Administration Vital Signs: Temp Pulse Pulse Resp BP Pulse Ox O2 Del Method 10/08/23 10:00 97.8 F 64 16 131/60 95 Room Air 10/08/23 10:00 Room Air 10/08/23 09:00 Room Air 10/08/23 08:00 Room Air 10/08/23 07:00 Room Air 10/08/23 06:00 Room Air 10/08/23 05:54 98.1 F 72 16 168/57 H 92 L Room Air 10/08/23 05:00 Room Air 10/08/23 04:00 Room Air 10/08/23 03:00 Room Air 10/08/23 02:00 Room Air 10/08/23 02:00 98.1 F 56 L 18 148/64 H 96 Room Air 10/08/23 01:00 Room Air 10/08/23 01:00 Room Air 10/08/23 00:00 Room Air 10/07/23 23:00 Room Air 10/07/23 22:00 Room Air 10/07/23 21:47 98 F 57 L 18 140/59 L 94 L Room Air 10/07/23 21:00 Room Air 10/07/23 20:00 56 L Room Air 10/07/23 20:00 Room Air 10/07/23 19:00 Room Air 10/07/23 17:48 98.2 F 54 L 20 154/78 H 98 Room Air 10/07/23 17:47 Room Air 10/07/23 17:00 Room Air 10/07/23 16:00 Room Air 10/07/23 15:00 Room Air 10/07/23 13:44 97.8 F 58 L 20 168/54 H 95 Room Air 10/07/23 13:44 Room Air 10/07/23 12:45 Room Air 10/07/23 11:59 Room Air 10/07/23 10:53 Room Air 10/07/23 10:00 97.5 F L 56 L 20 173/60 H 94 L Room Air 10/07/23 09:48 Room Air 10/07/23 09:26 Room Air 10/07/23 09:26 97.5 F L 56 L 20 94 L Room Air 10/07/23 03:44 150/64 H 10/07/23 02:30 98.4 F 55 L 20 105/47 L 95 Son would like to speak with highway maintenance crew worker he wants SNF vs home health, he has disability and cannot care for his father physically, he reports [facility] social workers wouldn't help because he has [place] insurance Patient care signed out SBAR format to Dr. Vasquez, pending social work consult during hospital day business hours <JUSTINE VASQUEZ MD - Last Filed: 10/07/23 08:21> Course Orders, Labs, Meds: Lab Review 10/07/23 10/07/23 10/07/23 03:00 03:01 03:40 WBC 9.65 RBC 3.31 L Hgb 9.8 L Hct 30.3 L MCV 91.5 MCH 29.6 MCHC 32.3 RDW Coeff of Sri 19.4 H Plt Count 268 Immature Gran % (Auto) 0.7 Neut % (Auto) 67.0 Lymph % (Auto) 13.2 [place] % (Auto) 12.5 H Eos % (Auto) 6.2 Baso % (Auto) 0.4 Neut # (Auto) 6.5 Lymph # (Auto) 1.3 [place] # (Auto) 1.2 Eos # (Auto) 0.6 Baso # (Auto) 0.0 Immature Gran # (Auto) 0.1 Sodium 134.0 L Potassium 3.18 L Chloride 99.3 Carbon Dioxide 31.4 H Anion Gap 6.48 BUN 45.6 H Creatinine 1.82 H Estimated GFR (MDRD) 36.00 BUN/Creatinine Ratio 25.05 Glucose 102.8 Calcium 9.42 Magnesium Total Bilirubin 0.92 AST 58.6 ALT 17.0 Alkaline Phosphatase 51.0 L Total Creatine Kinase 60.8 Troponin I 0.023 NT-Pro-B Natriuret Pep 4870 H Total Protein 7.14 Albumin 3.72 Globulin 3.42 Albumin/Globulin Ratio 1.08 TSH 2.320 Free T4 2.49 H Urine Color Yellow Urine Clarity Clear Urine pH 5.5 Ur Specific [place] 1.015 Urine Protein 1+ H Urine Glucose (UA) Negative Urine Ketones Negative Urine Blood Negative Urine Nitrite Negative Urine Bilirubin Negative Urine Urobilinogen 0.2 Ur Leukocyte Esterase Negative Urine Microscopic RBC 0-2 Ur Squamous Epith Cells Not present Urine Mucus Trace Adenovirus (PCR) Not detected B. pertussis DNA (PCR) Not detected B.parapertussis DNA PCR Not detected C. pneumoniae DNA (PCR) Not detected Coronavirus OC43 (PCR) Not detected Coronavirus HKU1 (PCR) Not detected Coronavirus 229E (PCR) Not detected Coronavirus NL63 (PCR) Not detected Human Metapneumovir PCR Not detected Influenza Type A (PCR) Not detected Influenza B (RT-PCR) Not detected M. pneumoniae (PCR) Not detected Parainfluenza 1 (PCR) Not detected Parainfluenza 2 (PCR) Not detected Parainfluenza 3 (PCR) Not detected Parainfluenza 4 (PCR) Not detected RSV (PCR) Not detected Entero/Rhino (PCR) Not detected SARS-CoV-2 (PCR) Not detected 10/07/23 10/08/23 05:23 05:17 WBC 11.64 H RBC 3.45 L Hgb 10.3 L Hct 31.3 L MCV 90.7 MCH 29.9 MCHC 32.9 RDW Coeff of Sri 19.6 H Plt Count 221 Immature Gran % (Auto) 0.5 Neut % (Auto) 69.2 Lymph % (Auto) 12.5 [place] % (Auto) 11.5 H Eos % (Auto) 5.8 Baso % (Auto) 0.5 Neut # (Auto) 8.0 H Lymph # (Auto) 1.5 [place] # (Auto) 1.3 Eos # (Auto) 0.7 Baso # (Auto) 0.1 Immature Gran # (Auto) 0.1 Sodium 134.0 L Potassium 3.97 Chloride 104.0 Carbon Dioxide 27.8 Anion Gap 6.17 BUN 36.4 H Creatinine 1.71 H Estimated GFR (MDRD) 38.00 BUN/Creatinine Ratio 21.28 Glucose 103.2 Calcium 9.10 Magnesium 1.66 Total Bilirubin 1.02 AST 44.0 ALT 15.9 Alkaline Phosphatase 51.2 L Total Creatine Kinase Troponin I 0.023 NT-Pro-B Natriuret Pep Total Protein 6.85 Albumin 3.43 L Globulin 3.42 Albumin/Globulin Ratio 1.00 TSH Free T4 Urine Color Urine Clarity Urine pH Ur Specific [place] Urine Protein Urine Glucose (UA) Urine Ketones Urine Blood Urine Nitrite Urine Bilirubin Urine Urobilinogen Ur Leukocyte Esterase Urine Microscopic RBC Ur Squamous Epith Cells Urine Mucus Adenovirus (PCR) B. pertussis DNA (PCR) B.parapertussis DNA PCR C. pneumoniae DNA (PCR) Coronavirus OC43 (PCR) Coronavirus HKU1 (PCR) Coronavirus 229E (PCR) Coronavirus NL63 (PCR) Human Metapneumovir PCR Influenza Type A (PCR) Influenza B (RT-PCR) M. pneumoniae (PCR) Parainfluenza 1 (PCR) Parainfluenza 2 (PCR) Parainfluenza 3 (PCR) Parainfluenza 4 (PCR) RSV (PCR) Entero/Rhino (PCR) SARS-CoV-2 (PCR) Orders Category Date Time Status ADMIT OBSERVATION [PLACE PATIENT OBSERVATION] .TO ADMISSION 10/07/23 08:21 Active MEDSURG (MONITORED BED) EKG-(ED ONLY) Stat CARDIO 10/07/23 02:53 Completed TELEMETRY MONITORING TELE CARE 10/07/23 08:21 Active REGULAR DIET DIETARY 10/07/23 Lunch Ordered CONSULT COMPUTER ARTIST ONCE COMPUTER ARTIST 10/07/23 09:39 Active CBC W/ AUTO DIFF DAILY@0600 LAB 10/08/23 05:17 Completed CBC W/ AUTO DIFF DAILY@0600 LAB 10/09/23 06:00 Ordered CBC W/ AUTO DIFF Stat LAB 10/07/23 03:00 Completed COMPREHENSIVE METABOLIC PANEL DAILY@0600 LAB 10/08/23 05:17 Completed COMPREHENSIVE METABOLIC PANEL DAILY@0600 LAB 10/09/23 06:00 Ordered COMPREHENSIVE METABOLIC PANEL Stat LAB 10/07/23 03:00 Completed CREATINE KINASE Stat LAB 10/07/23 03:00 Completed FREE T4 (FREE THYROXINE) Stat LAB 10/07/23 03:00 Completed MAGNESIUM Routine LAB 10/07/23 05:23 Completed PROBNP ED [NT-PROBNP(ED)] Stat LAB 10/07/23 03:00 Completed RESPIRATORY PANEL 2.1 (PCR) Stat LAB 10/07/23 03:40 Completed TROPONIN I Stat LAB 10/07/23 03:00 Completed TROPONIN I Stat LAB 10/07/23 05:23 Completed TSH [THYROID STIMULATING HORMONE] Stat LAB 10/07/23 03:00 Completed UA [URINALYSIS C & S IF INDICATED] Stat LAB 10/07/23 03:01 Completed Acetaminophen [Tylenol] Meds 10/08/23 07:42 Active 650 mg PO Q6H PRN Allopurinol [Zyloprim] Meds 10/07/23 12:00 Active 100 mg PO DAILY Amlodipine Besylate [Norvasc] Meds 10/07/23 12:00 Active 5 mg PO DAILY Amoxicillin/Potassium Clav [Augmentin 875-125 mg Tab] Meds 10/07/23 12:00 Active 1 tab PO BIDWM2 Aspirin [Aspirin EC] Meds 10/07/23 12:00 Active 81 mg PO DAILYWM2 Atenolol [Tenormin] Meds 10/07/23 12:00 Active 12.5 mg PO DAILY Atorvastatin Calcium [Lipitor] Meds 10/07/23 21:00 Active 40 mg PO BEDTIME Citalopram Hydrobromide [Celexa] Meds 10/07/23 12:00 Active 60 mg PO DAILY Hydralazine HCl [Apresoline] Meds 10/07/23 12:00 Active 100 mg PO BID Isosorbide Mononitrate [Imdur] Meds 10/07/23 12:00 Active 30 mg PO DAILY Levothyroxine Sodium [Synthroid] Meds 10/07/23 12:00 Active 112 mcg PO QDAC2 Loratadine [Claritin] Meds 10/07/23 12:00 Active 10 mg PO DAILY Losartan Potassium [Cozaar] Meds 10/07/23 12:00 Active 50 mg PO BID Magnesium Oxide [Mag-Ox] Meds 10/07/23 12:00 Active 400 mg PO DAILY [place]-3/Dha/Epa/Fish Oil [[place]-3 Fish Oil] Meds 10/07/23 12:00 Active 1,000 mg PO DAILY Ondansetron HCl/Pf [Zofran 4 mg/2 ml] Meds 10/07/23 09:43 Active 4 mg IVP Q6H PRN Pantoprazole Sodium [Protonix] Meds 10/07/23 12:00 Active 40 mg PO BIDAC2 Potassium Chloride [K-Dur] Meds 10/07/23 03:55 Discontinued 40 meq PO ONCE ONE Ringers Lactated Solution [Lactated Ringers] 1,000 ml Meds 10/07/23 10:00 Active IV 100 mls/hr Saccharomyces Boulardii [Florastor] Meds 10/07/23 12:00 Active 250 mg PO BID Tamsulosin HCl [Flomax] Meds 10/07/23 12:00 Active 0.4 mg PO DAILY calcitriol Meds 10/08/23 09:00 Active 0.25 mcg PO DAILY ticagrelor [Brilinta] Meds 10/07/23 21:00 Active 90 mg PO BID RESUSCITATION STATUS Routine OTHERS 10/07/23 09:[address] HEAD W/O CONTRAST Stat RADS 10/07/23 02:53 Completed CXR [CHEST, 2 VIEWS PA & LAT] Stat RADS 10/07/23 03:10 Completed SHOULDER, LEFT MIN 2V Stat RADS 10/07/23 10:28 Completed OT CONSULTATION Routine THERAPIES 10/07/23 Ordered OT EVALUATION Routine THERAPIES 10/07/23 10:31 Ordered PT CONSULT Routine THERAPIES 10/07/23 16:11 Completed PT INPATIENT EVALUATION Routine THERAPIES 10/07/23 16:11 Completed Medications Generic Name Dose Route Start Last Admin Trade Name Freq PRN Reason Stop Dose Admin Acetaminophen 650 mg 10/08/23 07:42 10/08/23 08:46 Acetaminophen 325 Mg Tablet PO 650 mg Q6H PRN Administration Mild Pain Allopurinol 100 mg 10/07/23 12:00 10/08/23 08:50 Allopurinol 100 Mg Tablet PO 100 mg DAILY BERYL Administration Amlodipine Besylate 5 mg 10/07/23 12:00 10/08/23 08:50 Amlodipine Besylate 5 Mg Tablet PO 5 mg DAILY BERYL Administration Amoxicillin/Clavulanate Potassium 1 tab 10/07/23 12:00 10/08/23 08:49 Amoxicillin/Potassium Clav 875/125 Mg Tablet PO 10/15/23 22:00 1 tab BIDWM2 BERYL Administration Aspirin 81 mg 10/07/23 12:00 10/08/23 08:49 Aspirin 81 Mg Tablet.Dr PO 81 mg DAILYWM2 BERYL Administration Atenolol 12.5 mg 10/07/23 12:00 10/08/23 08:59 Atenolol 25 Mg Tablet PO 12.5 mg DAILY BERYL Administration Atorvastatin Calcium 40 mg 10/07/23 21:00 10/07/23 20:33 Atorvastatin Calcium 20 Mg Tablet PO 40 mg BEDTIME BERYL Administration Citalopram Hydrobromide 60 mg 10/07/23 12:00 10/08/23 08:49 Citalopram Hydrobromide 20 Mg Tablet PO 60 mg DAILY BERYL Administration Fish Oil 1,000 mg 10/07/23 12:00 10/08/23 08:50 [place]-3/Dha/Epa/Fish Oil 1,000 Mg Capsule PO 1,000 mg DAILY BERYL Administration Hydralazine HCl 100 mg 10/07/23 12:00 10/08/23 08:49 Hydralazine Hcl 50 Mg Tablet PO 100 mg BID BERYL Administration Lactated Ringer's 1,000 mls @ 100 mls/hr 10/07/23 10:00 10/08/23 05:57 Lactated Ringers IV 100 mls/hr .Q10H BERYL Administration Isosorbide Mononitrate 30 mg 10/07/23 12:00 10/08/23 08:49 Isosorbide Mononitrate 30 Mg Tab.Er.24h PO 30 mg DAILY BERYL Administration Levothyroxine Sodium 112 mcg 10/07/23 12:00 10/08/23 05:57 Levothyroxine Sodium 112 Mcg Tablet PO 112 mcg QDAC2 BERYL Administration Loratadine 10 mg 10/07/23 12:00 10/08/23 08:50 Loratadine 10 Mg Tablet PO 10 mg DAILY BERYL Administration Losartan Potassium 50 mg 10/07/23 12:00 10/08/23 08:50 Losartan Potassium 100 Mg Tablet PO 50 mg BID BERYL Administration Magnesium Oxide 400 mg 10/07/23 12:00 10/08/23 08:49 Magnesium Oxide 400 Mg Tablet PO 400 mg DAILY BERYL Administration Non-Formulary Medication 90 mg 10/07/23 21:00 10/08/23 09:11 Ticagrelor [Brilinta] PO Not Given BID BERYL Non-Formulary Medication 0.25 mcg 10/08/23 09:00 10/08/23 09:06 Calcitriol PO Not Given DAILY BERYL Ondansetron HCl 4 mg 10/07/23 09:43 Ondansetron Hcl/Pf 4 Mg/2 Ml Sdv IVP Q6H PRN Nausea / Vomiting Pantoprazole Sodium 40 mg 10/07/23 12:00 10/08/23 05:57 Pantoprazole Sodium 40 Mg Tablet.Dr PO 40 mg BIDAC2 BERYL Administration Saccharomyces Boulardii 250 mg 10/07/23 12:00 10/08/23 08:48 Saccharomyces Boulardii 250 Mg Capsule PO 250 mg BID BERYL Administration Tamsulosin HCl 0.4 mg 10/07/23 12:00 10/08/23 08:50 Tamsulosin Hcl 0.4 Mg Cap.Er.24h PO 0.4 mg DAILY BERYL Administration Discontinued Medications Generic Name Dose Route Start Last Admin Trade Name Freq PRN Reason Stop Dose Admin Potassium Chloride 40 meq 10/07/23 03:55 10/07/23 04:05 Potassium Chloride 20 Meq Tab PO 10/07/23 03:56 40 meq ONCE ONE Administration Vital Signs: Temp Pulse Pulse Resp BP Pulse Ox O2 Del Method 10/08/23 10:00 97.8 F 64 16 131/60 95 Room Air 10/08/23 10:00 Room Air 10/08/23 09:00 Room Air 10/08/23 08:00 Room Air 10/08/23 07:00 Room Air 10/08/23 06:00 Room Air 10/08/23 05:54 98.1 F 72 16 168/57 H 92 L Room Air 10/08/23 05:00 Room Air 10/08/23 04:00 Room Air 10/08/23 03:00 Room Air 10/08/23 02:00 Room Air 10/08/23 02:00 98.1 F 56 L 18 148/64 H 96 Room Air 10/08/23 01:00 Room Air 10/08/23 01:00 Room Air 10/08/23 00:00 Room Air 10/07/23 23:00 Room Air 10/07/23 22:00 Room Air 10/07/23 21:47 98 F 57 L 18 140/59 L 94 L Room Air 10/07/23 21:00 Room Air 10/07/23 20:00 56 L Room Air 10/07/23 20:00 Room Air 10/07/23 19:00 Room Air 10/07/23 17:48 98.2 F 54 L 20 154/78 H 98 Room Air 10/07/23 17:47 Room Air 10/07/23 17:00 Room Air 10/07/23 16:00 Room Air 10/07/23 15:00 Room Air 10/07/23 13:44 97.8 F 58 L 20 168/54 H 95 Room Air 10/07/23 13:44 Room Air 10/07/23 12:45 Room Air 10/07/23 11:59 Room Air 10/07/23 10:53 Room Air 10/07/23 10:00 97.5 F L 56 L 20 173/60 H 94 L Room Air 10/07/23 09:48 Room Air 10/07/23 09:26 Room Air 10/07/23 09:26 97.5 F L 56 L 20 94 L Room Air 10/07/23 03:44 150/64 H 10/07/23 02:30 98.4 F 55 L 20 105/47 L 95 Discharge Plan Discharge Patient Disposition: PLACED OBSERVATION Discharge Problem: Elevated brain natriuretic peptide (BNP) level, Weakness, Tobacco use, Acute hypokalemia Did you review [place] [employer] for ALL controlled substances?: Not Applicable ED Provider: JUSTINE VASQUEZ Condition: Stable <PRINCE AUGUSTINE DO - Last Filed: 10/08/23 11:26> Physician Progress Note: [] <JUSTINE VASQUEZ MD - Last Filed: 10/07/23 08:21> Physician Progress Note: Patient care endorsed to my service Dr. Vasquez at [phone]-social service consult obtained patient will be admitted to observation for acute renal sufficiency and generalized weakness All laboratory data reviewed and are within normal limit except for potassium of 3.1, BUN 45, creatinine 1.8. Differential diagnosis: 1) acute renal sufficiency 2) generalized weakness 3) hypokalemia Discussed with Hussain MONTELONGO at [phone] for observation []
[2023-10-07 03:26] LABS: ALBUMIN 3.72 g/dL (3.5-5.0); ASPARTATE AMINO TRANSFERASE 58.6 U/L (17-59); BILIRUBIN,TOTAL 0.92 mg/dL (0.2-1.3); BLOOD UREA NITROGEN 45.6 mg/dL (9-20); CALCIUM 9.42 mg/dL (8.4-10.2); CARBON DIOXIDE 31.4 mmol/L (22-30.0); CHLORIDE 99.3 mmol/L (98-107); CREATINE KINASE 60.8 U/L (55-170); CREATININE 1.82 mg/dL (0.60-1.10); GLUCOSE 102.8 mg/dL (74-106); POTASSIUM 3.18 mmol/L (3.5-5.1); TOTAL PROTEIN 7.14 g/dL (6.3-8.2)
[2023-10-07 03:38] LABS: TROPONIN I 0.023 ng/ml (0.0000-0.120)
--- NOTE | 2023-10-07 03:38 | CT ---
EXAM: CT HEAD WITHOUT CONTRAST. HISTORY: Dizzy. PROCEDURE: Contiguous axial CT images of the head without contrast with coronal and sagittal reforma ts. Comparison: None. FINDINGS: There is diffuse cerebral atrophy. The ventricles are enlarged, consistent with the degre e of atrophy. The basal cisterns are normal in appearance. No evidence of mass or midline shift. N o intracranial hemorrhage or evidence of large vessel infarct. There are chronic small vessel ischem ic changes in the white matter. There is mucosal thickening in the left maxillary sinus. The mastoi d air cells are normal in appearance. Impression: No intracranial hemorrhage or evidence of large vessel infarct. Ventriculomegaly as described. The differential diagnosis includes normal-pressure hydrocephalus. Chronic small vessel ischemic changes. Diffuse cerebral atrophy. Left maxillary sinusitis. All CT scans are performed using dose optimization techniques as appropriate to the performed exam an d include at least one of the following: Automated exposure control, adjustment of the mA and/or kV according t o size, and the use of iterative reconstruction technique.
--- NOTE | 2023-10-07 03:47 | DI ---
EXAM: AP CHEST. HISTORY: Weakness. Cough. FINDINGS The bones are unremarkable. The cardiac silhouette is enlarged. The pulmonary vasculature is within normal limits. The right costophrenic angle is clear. There is a small left pleural effu sammi. There is minimal left basilar atelectasis and/or pneumonia. Impression: Left basilar atelectasis and/or pneumonia. Small left pleural effusion. Cardiomegaly.
[2023-10-07 03:54] LABS: BORDETELLA PARAPERTUSSIS (PCR) NOT DETECTED (NOT DETECT); BORDETELLA PERTUSSIS (PCR) NOT DETECTED (NOT DETECT); CHLAMYDIA PNEUMONIAE (PCR) NOT DETECTED (NOT DETECT); CORONAVIRUS 229E (PCR) NOT DETECTED (NOT DETECT); CORONAVIRUS HKU1 (PCR) NOT DETECTED (NOT DETECT); CORONAVIRUS NL63 (PCR) NOT DETECTED (NOT DETECT); CORONAVIRUS OC43 (PCR) NOT DETECTED (NOT DETECT); HUMAN METAPNEUMOVIRUS (PCR) NOT DETECTED (NOT DETECT); HUMAN RHINOVIRUS/ENTEROV (PCR) NOT DETECTED (NOT DETECT); INFLUENZA B (PCR) NOT DETECTED (NOT DETECT); MYCOPLASMA PNEUMONIAE (PCR) NOT DETECTED (NOT DETECT); PARAINFLUENZA VIRUS 1 (PCR) NOT DETECTED (NOT DETECT); PARAINFLUENZA VIRUS 2 (PCR) NOT DETECTED (NOT DETECT); PARAINFLUENZA VIRUS 3 (PCR) NOT DETECTED (NOT DETECT); PARAINFLUENZA VIRUS 4 (PCR) NOT DETECTED (NOT DETECT); RESPIRATORY SYNCYTIAL V (PCR) NOT DETECTED (NOT DETECT); SARS_COV_2 (PCR) NOT DETECTED (NOT DETECT)
[2023-10-07] MEDS: K-DUR PO ONE (04:05)
[2023-10-07 05:30] LABS: ADENOVIRUS (PCR) NOT DETECTED (NOT DETECT)
[2023-10-07 09:39] VITALS: BMI 18.8
[2023-10-07] MEDS: LACTATED RINGERS 1,000 ML IV SCH (10:11)
--- NOTE | 2023-10-07 10:53 | PCM ---
Date of Service Date Seen by Provider: 10/07/23 Time Seen by Provider: :30 Admit Day/Time Admission Date: 10/07/23 Admission Time: 09:25 Reason for Admission Chief Complaint: ACUTE RENAL INSUF; HYPOKALEMIA; WEAKNESS Hospital Provider Hospital Provider: MENDY NOEL, [facility] [place] Primary Care Physician Primary Care Physician: JAZZMINE MACIEL History of Present Illness History of Present Illness: 83 yo male presented to the ER with son for weakness. Patient reports that he went to [facility] 2 times and was sent home. States he has no energy and is unable to get up out of his chair. Has had diarrhea over the last couple days. Not eating or drinking well because of this. Denies fever, chest pain, sob, vomiting. Denies bloody or black stools. Has complaints of L shoulder pain. No injury or fall that he is aware of. Has attempted to get out of his recliner and states he "felt a pop". Patient was seen at [facility] ER on 10/04 and 10/06. On 10/04, patient was diagnosed with left maxillary sinusitis and discharged with an RX for flonase and augmentin in which he has been taking. No note in medical record for 10/06 to determine dx and treatment. Labs worsened from 10/04 to 10/06 with BUN of 36 to 46 and creatinine of 1.77 to 2.01. On 09/15, patient underwent cardiac catheterization by Dr. Ashby at [facility]. The following was completed: successful complex percutaneous coronary intervention to sequential and severely calcified lesions throughout the right coronary artery, requiring use of intravascular lithotripsy to facilitate full expansion of lesions. Drug-eluting stents placed included a 2.5 x 12 to the distal vessel, 3.25 x 15 to the mid vessel, and a 2.5 x 12 covering the ostium. Successful percutaneous coronary convention to the mid circumflex/OM 2, using a 2.5 x 33 mm drug-eluting stent, postdilated to 3.0 proximally Son reported in ER concerns for caring for his father at home due to himself being disabled and having the inability to lift on him. Called [facility] last night requesting SNF/Rehab placement or resources. Case Discussed With Case Discussed With: Patient's case [facility] History of aortic stenosis Z86.79 - Personal history of other diseases of the circulatory system (ICD- 10) Bilateral carotid artery disease I77.9 - Disorder of arteries and arterioles, unspecified (ICD-10) Depression F32.A - Depression, unspecified (ICD-10) Anxiety F41.9 - Anxiety disorder, unspecified (ICD-10) COPD (chronic obstructive pulmonary disease) J44.9 - Chronic obstructive pulmonary disease, unspecified (ICD-10) Hyperlipidemia E78.5 - Hyperlipidemia, unspecified (ICD-10) Anemia D64.9 - Anemia, unspecified (ICD-10) Hypothyroidism E03.9 - Hypothyroidism, unspecified (ICD-10) Diabetes E11.9 - Type 2 diabetes mellitus without complications (ICD-10) Myocardial infarct March 2023 I21.9 - Acute myocardial infarction, unspecified (ICD-10) Hypertension I10 - Essential (primary) hypertension (ICD-10) Surgical History History of coronary artery stent placement Z95.5 - Presence of coronary angioplasty implant and graft (ICD-10) Status post spinal disc removal Z98.890 - Other specified postprocedural states (ICD-10) 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 - Acquired absence of other parts of urinary tract (ICD-10) Family History Other No known health problems Social History Smoking and tobacco status: Current every day smoker Tobacco type: cigarettes Smoking packs per day: 1 Smoking cigarettes per day: 20.0 Allergies Allergies Allergy/AdvReac Type Severity Reaction Status Date / Time No Known Allergies Allergy Verified 10/07/23 06:32 Current Medications Home Medications citalopram 40 mg tablet (Celexa) 60 mg PO DAILY 10/30/17 [History Confirmed 10/07/23 Last Taken Unknown] pantoprazole 40 mg tablet,delayed release 40 mg PO BID 10/30/17 [History Confirmed 10/07/23 Last Taken Unknown] tamsulosin 0.4 mg capsule 0.4 mg PO DAILY 10/30/17 [History Confirmed 10/07/23 Last Taken Unknown] allopurinol 100 mg tablet 100 mg PO DAILY 06/25/23 [History Confirmed 10/07/23 Last Taken Unknown] amlodipine 10 mg tablet 5 mg PO DAILY 06/25/23 [History Confirmed 10/07/23 Last Taken Unknown] aspirin 81 mg tablet,delayed release (Lor Low Dose Aspirin) 81 mg PO DAILY 06/25/23 [History Confirmed 10/07/23 Last Taken Unknown] atorvastatin 80 mg tablet 40 mg PO BEDTIME 06/25/23 [History Confirmed 10/07/23 Last Taken Unknown] calcitriol 0.25 mcg capsule 0.25 mcg PO DAILY 06/25/23 [History Confirmed 10/07/23 Last Taken Unknown] hydralazine 100 mg tablet 100 mg PO BID 06/25/23 [History Confirmed 10/07/23 Last Taken Unknown] isosorbide mononitrate 30 mg tablet,extended release 24 hr 30 mg PO DAILY 06/25/23 [History Confirmed 10/07/23 Last Taken Unknown] levothyroxine 112 mcg tablet (Euthyrox) 112 mcg PO DAILY 06/25/23 [History Confirmed 10/07/23 Last Taken Unknown] loratadine 10 mg tablet (Allerclear) 10 mg PO DAILY 06/25/23 [History Confirmed 10/07/23 Last Taken Unknown] losartan 100 mg tablet (Cozaar) 50 mg PO BID 06/25/23 [History Confirmed 10/07/23 Last Taken Unknown] magnesium oxide 400 mg PO DAILY 06/25/23 [History Confirmed 10/07/23 Last Taken Unknown] nitroglycerin 0.4 mg sublingual tablet 0.4 mg sublingual Q5-15M PRN chest pain 06/25/23 [History Confirmed 10/07/23 Last Taken Unknown] omega 7-svt-oyy-fish oil 300 mg-1,000 mg capsule (Fish Oil) 1 cap PO DAILY 06/25/23 [History Confirmed 10/07/23 Last Taken Unknown] atenolol 25 mg tablet 12.5 mg (1/2 x 25 mg) PO DAILY #30 tabs 06/27/23 [Rx Confirmed 10/07/23 Last Taken Unknown] furosemide 20 mg tablet 20 mg PO DAILY 08/27/23 [History Confirmed 10/07/23 Last Taken Unknown] amoxicillin 875 mg-potassium clavulanate 125 mg tablet 1 tab PO BID 10/07/23 [History Confirmed 10/07/23 Last Taken 10/06/23] fluticasone propionate 50 mcg/actuation nasal spray,suspension 2 spray intranasal DAILY 10/07/23 [History Confirmed 10/07/23 Last Taken Unknown] ticagrelor 90 mg tablet (Brilinta) 90 mg PO BID 10/07/23 [History Confirmed 10/07/23 Last Taken Unknown] Home Lactated Ringer's (Lactated Ringers) 1,000 mls @ 100 mls/hr IV .Q10H BERYL Last Admin: 10/07/23 10:11 Dose: 100 mls/hr Ondansetron HCl (Ondansetron Hcl/Pf 4 Mg/2 Ml Sdv) 4 mg IVP Q6H PRN PRN Reason: Nausea / Vomiting Discontinued Medications Potassium Chloride (Potassium Chloride 20 Meq Tab) 40 meq PO ONCE ONE Stop: 10/07/23 03:56 Last Admin: 10/07/23 04:05 Dose: 40 meq Opioid Naive vs. Tolerant Does Patient Take Opioids?: No Is Patient Opioid Naive?: Yes What is Opioid Naive?: *Opioid Naive implies the patient is not already taking opioids or not chronically receiving opioids on a daily basis. *PRN dosing is not "usually" associated with tolerance. *Patients are at higher risk of over-sedation and aspiration. Is Patient Opioid Tolerant?: No What is Opioid Tolerant?: *Opioid Tolerance implies less than the expected response to an opioid. *Acquired tolerance is defined by the patient taking 60mg of oral morphine daily (or equianalgesic dose of another opioid) for 1 week or more. *Often associated with chronic pain. *May take more than usual dose to achieve desired pain control. Review of Systems Constitutional: Reports Weakness Head: Reports Normocephalic Eyes: Reports No symptoms Ears: Reports No symptoms Nose: Reports No symptoms Mouth: Reports No symptoms Throat: Reports No symptoms Cardiovascular: Reports No symptoms Respiratory: Reports No symptoms Gastrointestinal: Reports Diarrhea Genitourinary: Reports No Symptoms Musculoskeletal: Reports No symptoms Endocrine: Reports No symptoms Hematology: Reports No symptoms Immunology: Reports No symptoms Neurological: Reports No symptoms Psychiatric: Reports No symptoms Physical examination Most Recent Vital Signs: Most Recent Vital Signs Temperature 97.5 F L 10/07/23 10:00 Temperature Source Tympanic 10/07/23 10:00 Temperature Source Infrared 10/07/23 02:30 Pulse Rate 56 L 10/07/23 10:00 Respiratory Rate 20 10/07/23 10:00 Blood Pressure 173/60 H 10/07/23 10:00 Blood Pressure Mean 97 10/07/23 10:00 Blood Pressure Left Arm 173/60 10/07/23 09:26 Blood Pressure Location Right Arm 10/07/23 10:00 Blood Pressure Position Sitting 10/07/23 10:00 O2 Sat by Pulse Oximetry 94 L 10/07/23 10:00 Oxygen Delivery Method Room Air 10/07/23 10:00 Height 6 ft 1 in 10/07/23 09:26 Weight 142 lb 4.8 oz 10/07/23 09:26 Telemetry Heart Rate 55 L 08/28/23 07:00 Telemetry SPO2 93 08/27/23 19:00 Appearance: Positive No Apparent Distress, Alert and Oriented x3, Ill-Appearing, Thin and Cachectic Skin: Positive Warm and Good Turgor HEENT: Positive Normocephalic Neck: Positive Supple and Midline Trachea Chest/Lungs: Positive Symmetrical With Equal Breath Sounds, Clear to Auscultation Bilaterally and Good Air Movement all 4 Lung [place] Heart: Positive RRR and Pulses Normal GI/: Positive Soft, Nontender, Bowel Sounds Normal, No Distention and No Organomegaly Musculoskeletal: Positive Not Examined Extremities: Positive Intact Peripheral Pulses, Stable Joints Without Laxity, Good ROM in All Joints, Joint Tenderness (L shoulder ) and Other (chronic, PVD, dusky appearance to BLE) Neurological: Positive Sensation Intact, Motor intact, Reflexes Intact, Alert, Oriented and Other (generalized weakness) Labs This Visit Labs This Visit: Labs This Visit 10/07/23 10/07/23 10/07/23 03:00 03:01 03:40 WBC 9.65 RBC 3.31 L Hgb 9.8 L Hct 30.3 L MCV 91.5 MCH 29.6 MCHC 32.3 RDW Coeff of Sri 19.4 H Plt Count 268 Immature Gran % (Auto) 0.7 Neut % (Auto) 67.0 Lymph % (Auto) 13.2 Tate % (Auto) 12.5 H Eos % (Auto) 6.2 Baso % (Auto) 0.4 Neut # (Auto) 6.5 Lymph # (Auto) 1.3 Tate # (Auto) 1.2 Eos # (Auto) 0.6 Baso # (Auto) 0.0 Immature Gran # (Auto) 0.1 Sodium 134.0 L Potassium 3.18 L Chloride 99.3 Carbon Dioxide 31.4 H Anion Gap 6.48 BUN 45.6 H Creatinine 1.82 H Estimated GFR (MDRD) 36.00 BUN/Creatinine Ratio 25.05 Glucose 102.8 Calcium 9.42 Total Bilirubin 0.92 AST 58.6 ALT 17.0 Alkaline Phosphatase 51.0 L Total Creatine Kinase 60.8 Troponin I 0.023 NT-Pro-B Natriuret Pep 4870 H Total Protein 7.14 Albumin 3.72 Globulin 3.42 Albumin/Globulin Ratio 1.08 TSH 2.320 Free T4 2.49 H Urine Color Yellow Urine Clarity Clear Urine pH 5.5 Ur Specific [place] 1.015 Urine Protein 1+ H Urine Glucose (UA) Negative Urine Ketones Negative Urine Blood Negative Urine Nitrite Negative Urine Bilirubin Negative Urine Urobilinogen 0.2 Ur Leukocyte Esterase Negative Urine Microscopic RBC 0-2 Ur Squamous Epith Cells Not present Urine Mucus Trace Adenovirus (PCR) Not detected B. pertussis DNA (PCR) Not detected B.parapertussis DNA PCR Not detected C. pneumoniae DNA (PCR) Not detected Coronavirus OC43 (PCR) Not detected Coronavirus HKU1 (PCR) Not detected Coronavirus 229E (PCR) Not detected Coronavirus NL63 (PCR) Not detected Human Metapneumovir PCR Not detected Influenza Type A (PCR) Not detected Influenza B (RT-PCR) Not detected M. pneumoniae (PCR) Not detected Parainfluenza 1 (PCR) Not detected Parainfluenza 2 (PCR) Not detected Parainfluenza 3 (PCR) Not detected Parainfluenza 4 (PCR) Not detected RSV (PCR) Not detected Entero/Rhino (PCR) Not detected SARS-CoV-2 (PCR) Not detected 10/07/23 05:23 WBC RBC Hgb Hct MCV MCH MCHC RDW Coeff of Sri Plt Count Immature Gran % (Auto) Neut % (Auto) Lymph % (Auto) [place] % (Auto) Eos % (Auto) Baso % (Auto) Neut # (Auto) Lymph # (Auto) Tate # (Auto) Eos # (Auto) Baso # (Auto) Immature Gran # (Auto) Sodium Potassium Chloride Carbon Dioxide Anion Gap BUN Creatinine Estimated GFR (MDRD) BUN/Creatinine Ratio Glucose Calcium Total Bilirubin AST ALT Alkaline Phosphatase Total Creatine Kinase Troponin I 0.023 NT-Pro-B Natriuret Pep Total Protein Albumin Globulin Albumin/Globulin Ratio TSH Free T4 Urine Color Urine Clarity Urine pH Ur Specific [place] Urine Protein Urine Glucose (UA) Urine Ketones Urine Blood Urine Nitrite Urine Bilirubin Urine Urobilinogen Ur Leukocyte Esterase Urine Microscopic RBC Ur Squamous Epith Cells Urine Mucus Adenovirus (PCR) B. pertussis DNA (PCR) B.parapertussis DNA PCR C. pneumoniae DNA (PCR) Coronavirus OC43 (PCR) Coronavirus HKU1 (PCR) Coronavirus 229E (PCR) Coronavirus NL63 (PCR) Human Metapneumovir PCR Influenza Type A (PCR) Influenza B (RT-PCR) M. pneumoniae (PCR) Parainfluenza 1 (PCR) Parainfluenza 2 (PCR) Parainfluenza 3 (PCR) Parainfluenza 4 (PCR) RSV (PCR) Entero/Rhino (PCR) SARS-CoV-2 (PCR) Imaging Imaging: EXAM: CT HEAD WITHOUT CONTRAST. Impression: No intracranial hemorrhage or evidence of large vessel infarct. Ventriculomegaly as described. The differential diagnosis includes normal- pressure hydrocephalus. Chronic small vessel ischemic changes. Diffuse cerebral atrophy. Left maxillary sinusitis. EXAM: AP CHEST Impression: Left basilar atelectasis and/or pneumonia. Small left pleural effusion. Cardiomegaly. Review Statement Review Statement: I have independently reviewed and interpreted the labs/EKGs/imaging that were ordered by the ER provider. I have reviewed all outside records that are available currently in our EMR including imaging/notes/labs from previous visits. Plan Plan: 1. Acute Renal Failure - LR@100mL/hr, avoid nephrotoxins/hypotension, I&O 2. Hyponatremia - mild, replace with fluids, monitor 3. Hypokalemia - mild, replaced in ER, monitor 4. Diarrhea in setting of antibiotic use - start on florastor, has not had other antibiotics recently, not concerned for C.diff at this time 5. Anemia - chronic, follows with hem/onc, monitor 6. Left Maxillary Sinusitis - continue previously prescribed augmentin 7. Hypertension - chronic, continue home medications 8. Weakness - PT/OT to eval and treat, dispo TBD 9. Tobacco use - discussed cessation, nicotine patch if patient desires DVT Prophylaxis: Brilinta Time Spent: Greater than 80 minutes spent with patient, 50% of the time spent with this patient was devoted to counseling and coordination of care. Advanced Care Plannin minutes spent discussing advance care planning. Smoking Cessation: 5 minutes spent discussing smoking cessation. Disposition: Admit to: Med/surg Observation DNR Discussed Plan of Care with Dr. Iva Bay. Medications Medication Orders: Medications Ordered Category Date Time Status Ondansetron HCl/Pf [Zofran 4 mg/2 ml] Meds 10/07/23 09:43 Active 4 mg IVP Q6H PRN Ringers Lactated Solution [Lactated Ringers] 1,000 ml Meds 10/07/23 10:00 Active IV 100 mls/hr
--- NOTE | 2023-10-07 11:32 | DI ---
EXAM: LEFT SHOULDER RADIOGRAPH(S). 3 VIEWS. History: left shoulder pain Comparison: none Findings: No fracture or dislocation. No soft tissue abnormality or radiopaque foreign body. Impression: No acute findings.
--- NOTE | 2023-10-07 11:35 | RS.PTINEVL ---
Subjective Patient information Date of Evaluation: 10/07/23 Date of Arrival on Unit: 10/07/23 Admitted From:: Emergency Dept Diagnosis: acute kidney injury, hypokalemia Usual Living Arrangement: with son Living Arrangement Comments: Lives with son, son is there with him throughout the day Home Environment: House Medical History: Hypertension, COPD, Diabetes and Arthritis Medical History Comments:: anxiety, depression, anemia, [place] LATEX ALLERGY?: No Surgical History Comments:: cystectomy, recent coronary stents Medications: see chart Subjective Information/ Patient Comments:: pt states that he has not really walked since Thursday, has been sitting in his recliner. pt states that he uses a cane sometimes at home. Level of function Abilities prior to this admission: prior to this week states he walked independently occasionally using cane. Current Level of Function: Partially Dependent Current Equipment Used at Home: cane Pain Assessement Location Left Shoulder: Description: Aching Intensity: 4 Pain Behavior: Guarding and Facial Grimacing Pain Aggravating Factors: Exercise/Activity Interventions Objective Patient Orientation: Person, Place and Time Current Interventions: IV's and Telemetry Range of Motion ROM Right Upper Extremity AROM: WFL's Left Upper Extremity AROM: Slight limitation (limited shld flex, elbow WFL's ) Right Lower Extremity AROM: WFL's Left Lower Extremity AROM: WFL's Muscle Strength Muscle Strength Right Upper Extremity: Mild Weakness (grossly 4/5) Left Upper Extremity: Mild Weakness (shld flex 3-/5, elbow flex/ext 4-/5) Right Lower Extremity: Mild Weakness (hip flex4-/5, knee flex/ext 4+/5, ankle 4+/5) Left Lower Extremity: Mild Weakness (hip flex 4/5, knee flex/ext 4+/5 ankle DF/PF 4+/5) Sensation Sensation Right Upper Extremity: Intact/Normal Left Upper Extremity: Intact/Normal Right Lower Extremity: Impaired Left Lower Extremity: Impaired Comments: n/t B feet, pt also with decreased proprioception B feet Palpation Palpation Findings: Tenderness (L shld) Balance Sitting Balance and Reactions Static Sitting Balance: Good Dynamic Sitting Balance: Good Standing Balance and Reactions Static Standing Balance: Fair (fair-) Dynamic Standing Balance: Poor Functional Mobility Bed Mobility Rolling R/L: Independent Supine to Sit: Supervision Sit to Supine: Supervision and CGA Transfers Sit to Stand: Min Assist, 1 person assist and 2 person assist Stand to Sit: Min Assist and 1 person assist Safety Awareness Safety Awareness: Fair WALDO INDEX SCORE: n/a Ambulation Ambulation Assistive Device Used: Large Base Quad Cane Orthotic/Prosthetic Device: No Distance: 68ft Assistance needed with Ambulation: CGA, Min Assist and 1 person assist Gait Deviations: Forward posture and Short stride Ambulation Comments: pt with steppage gait Factors Affecting Ambulation: Decreased Balance, Pain, Weakness, Decreased Coordination, Decreased Safety and Limited Endurance Treatment time Units charged Gait trainin Time with patient Length of Evaluation: 18 Total treatment time: 31 Patient Education Education Patient Education: Activity Modification and Education of Plan of Care Teaching Recipient: Patient Teaching Methods: Discussion Comments: discussion regarding POC and home safety Assessment Assessment Problem List:: Decreased level of function, Requires training/education, Decreased safety/Risk of falls and Weakness Rehab Potential: Good Further Therapy Indicated?: Yes Candidate for Swing Bed for Therapy Services?: Feel pt would need to be reassessed prior due to pt may be at a higher level of function. Evaluation Complexity: HISTORY: Medium, EXAM OF BODY SYSTEMS: Medium, CLINICAL PRESENTATION: Medium and CLINICAL DECISION MAKING: Medium Patient's Goal(s): Go back home with my son Short Term Goals GOAL #1: pt independent with rolling and scooting in bed. Goal to be met by: 10/09/23 GOAL #2: Transfer sup to/from sit independently. Goal to be met by: 10/09/23 GOAL #3: Sit to stand min to CGA x 1 Goal to be met by: 10/09/23 GOAL #4: pt amb with AAD 100ft with CGA x 1 Goal to be met by: 10/09/23 GOAL #5: Improve BLE strength 4 to 4+/5 Goal to be met by: 10/09/23 Fdc Goals GOAL #1: pt transfer sup to/from sit to/from stand SBA Goal to be met by: 10/12/23 GOAL #2: pt amb functional household distances with AAD SBA x 1 Goal to be met by: 10/12/23 GOAL #3: Improve dyn stand balance fair Goal to be met by: 10/12/23 Plan Plan of Care: Therapeutic EX and Therapeutic Activity Other:: gait training Frequency of Treatment: 1-2 X day, as tolerated Duration of Treatment: 5 days Anticipated Discharge Destination: Home Treatment Diagnosis (ICD 10 Codes): impaired balance R 26.81 gait difficulty R 26.2 weakness M62.81 Has the Physician been added for Co-signature?: Yes
--- NOTE | 2023-10-07 12:45 | RS.OTINEVL ---
Subjective Patient information Date of Evaluation: 10/07/23 Date of Arrival on Unit: 10/07/23 Admitted From:: Home Diagnosis: Acute hypokalemia, Acute renal failure PRECAUTIONS: Fall risk, LUE shoulder pain Usual Living Arrangement: with son Living Arrangement Comments: Lives with son, son is there with him throughout the day Home Environment: House Medical History: Hypertension, COPD and Diabetes Medical History Comments:: Hypothyroidism, anxiety, Neuropathy. Surgical History Comments:: CV stenting x 4 Medications: Refer to chart Subjective Information/ Patient Comments:: "I went to pull myself up and I heard it pop." (Marcy lópez) Level of function Prior to this admission, the patient could do the following:: Independent Selfcare, Independent ADL's and Independent Ambulation Abilities prior to this admission: Pt reported that he had not walked since Thursday. Current Level of Function: Partially Dependent Current Equipment Used at Home: cane Pain Assessment Pain Pain Score: 4 Side: left Pain Location Body Site: Shoulder Pain Aggravating Factors: ADL's, Changing Position, Exercise/Activity and Standing Pain Alleviating Factors: Medication, Position Change and Lying Supine Interventions Objective Patient Orientation: Person and Situation Observation: Pt Min A to sit EOB. Pt Min A x 2 to stand from EOB at 2nd attempt. Pt ambulated with PT CGA. Pt has neuropathy and his proprioception of BLE is impaired. RUE is WFL. Mass epic professional of LUE is 5/5, RUE is 4+/5. Interventions ROM Right Upper Extremity AROM: WFL's Left Upper Extremity AROM: Moderate limitation Strength Right Upper Extremity: Normal Left Upper Extremity: Moderate Weakness Sensation Right Upper Extremity: Intact/Normal Left Upper Extremity: Intact/Normal Balance Sitting Balance Static Sitting Balance: Good Dynamic Sitting Balance: Good Standing Balance Static Standing Balance: Poor Dynamic Standing Balance: Fair ADL Skills Self Feeding Self Feeding: Set Up Only Grooming Grooming: Mod Assist Grooming Set-up: Sitting Bathing Bathing UE: Min Assist Bathing LE: Min Assist Bathing Set-up: Shower Dressing Dressing UE: Min Assist Dressing LE: Min Assist Toilet Management Toilet Hygiene: Independent Toilet Clothing Management: Min Assist Functional Mobility Bed Mobility Rolling R/L: Independent Supine to Sit: Min Assist Transfers Sit to Stand: Min Assist and 2 person assist Stand to Sit: CGA Stand Pivot Transfers: Min Assist Ambulation Weight Bearing Status: FWB Assistive Device Used: No Assistive Device Assistance needed with Ambulation: Min Assist Comments:: Pt would transfer and ambulate more safely with a RW. PT is getting patient Safety Awareness Safety Awareness: Good WALDO INDEX SCORE: . Additional Treatment Performed Time with patient Length of Evaluation: 17 Total treatment time: 19 Activities Do you enjoy playing games?: Yes Would you be interested in leaving your room for activities?: Yes Would you enjoy group activities?: Yes Do you have difficulty with your vision?: Yes Patient Interests:: Watching Television Patient Education Patient Education: Education of diagnosis, Home Safety and Education of Plan of Care Teaching Recipient: Patient Teaching Methods: Discussion and Demonstration Assessment Problem List:: Decreased level of function, Requires training/education, Weakness and Pain limits previous level of function Rehab Potential: Fair Further Therapy Indicated?: Yes Candidate for Swing Bed for Therapy Services?: Candidate may not require more than 3 says. High functioning. Evaluation Complexity: HISTORY: Medium, EXAM OF BODY SYSTEMS: Medium and CLINICAL DECISION MAKING: Medium Patient's Goal(s): To be able to get better and feel better to go home. Short Term Goals Goals GOAL 1: Pt to increase I of donning his shirt to Min. Goal to be met by: 10/09/23 GOAL 2: Pt to be able to stand at the sink and brush his teeth SBA. Goal to be met by: 10/09/23 GOAL 3: Pt to be I with toilet management. Goal to be met by: 10/09/23 GOAL 4: Pt to be CGA with toilet transfers. Goal to be met by: 10/09/23 Intermediate Goals GOAL 1: Pt to be I with ADLs. Goal to be met by: 10/10/23 GOAL 2: Pt to be I with toilet transfers. Goal to be met by: 10/10/23 Plan Plan of Care: Therapeutic EX, Therapeutic Activity and Self-Care/Home Management Frequency of Treatment: 1-2 X day, as tolerated Duration of Treatment: 3 days Anticipated Discharge Destination: Home Treatment Diagnosis (ICD 10 Codes): Weakness R53.1 Has the Physician been added for Co-signature?: Yes
[2023-10-07] MEDS: ZYLOPRIM PO SCH (13:14)
[2023-10-07] MEDS: CELEXA PO SCH (13:14)
[2023-10-07] MEDS: MAG-OX PO SCH (13:14)
[2023-10-07] MEDS: IMDUR PO SCH (13:14)
[2023-10-07] MEDS: COZAAR PO SCH (13:14)
[2023-10-07] MEDS: NORVASC PO SCH (13:14)
[2023-10-07] MEDS: OMEGA-3 FISH OIL PO SCH (13:15)
[2023-10-07] MEDS: APRESOLINE PO SCH (13:15)
[2023-10-07] MEDS: CLARITIN PO SCH (13:15)
[2023-10-07] MEDS: FLOMAX PO SCH (13:15)
[2023-10-07] MEDS: FLORASTOR PO SCH (13:15)
[2023-10-07] MEDS: ASPIRIN EC PO SCH (13:17)
[2023-10-07] MEDS: AUGMENTIN 875-125 MG TAB PO SCH (13:17)
[2023-10-07] MEDS: TENORMIN PO SCH (13:22)
[2023-10-07] MEDS: SYNTHROID PO SCH (13:24)
[2023-10-07] MEDS: PROTONIX PO SCH (13:24)
[2023-10-07] MEDS: TICAGRELOR 90 MG PO SCH (20:33)
[2023-10-07] MEDS: LIPITOR PO SCH (20:33)
[2023-10-08 05:25] LABS: BASOPHILS # (AUTO) 0.1 K/uL (0-0.2); BASOPHILS % (AUTO) 0.5 % (0.0-3.0); EOSINOPHILS # (AUTO) 0.7 K/ul (0.0-0.7); EOSINOPHILS % (AUTO) 5.8 % (0.0-7.0); HEMATOCRIT 31.3 % (42.0-52.0); HEMOGLOBIN 10.3 g/dl (14.0-18.0); IMMATURE GRANULOCYTE # (AUTO) 0.1 (0.0-1.0); IMMATURE GRANULOCYTE % (AUTO) 0.5 % (0.0-5.0); LYMPHOCYTES # (AUTO) 1.5 K/uL (0.60-3.4); LYMPHOCYTES % (AUTO) 12.5 (10.0-50.0); MEAN CORPUSCULAR HEMOGLOBIN 29.9 pg (27.0-31.0); MEAN CORPUSCULAR HGB CONC 32.9 (31.8-35.4); MEAN CORPUSCULAR VOLUME 90.7 fl (80.0-94.0); MONOCYTES # (AUTO) 1.3 K/uL (0.4-2.0); MONOCYTES % (AUTO) 11.5 (0-10); NEUTROPHILS % (AUTO) 69.2 % (42.2-75.2); PLATELET COUNT 221 10^3/uL (140-440); RDW COEFFICIENT OF VARIATION 19.6 % (11.6-14.8); RED BLOOD COUNT 3.45 10^6/ul (4.70-6.10); WHITE BLOOD COUNT 11.64 K/ul (4.2-10.2)
[2023-10-08 05:49] LABS: ALANINE AMINOTRANSFERASE 15.9 U/L (0-50); ALBUMIN 3.43 g/dL (3.5-5.0); ALKALINE PHOSPHATASE 51.2 U/L (56-119); BILIRUBIN,TOTAL 1.02 mg/dL (0.2-1.3); BLOOD UREA NITROGEN 36.4 mg/dL (9-20); CALCIUM 9.1 mg/dL (8.4-10.2); CARBON DIOXIDE 27.8 mmol/L (22-30.0); CREATININE 1.71 mg/dL (0.60-1.10); GLUCOSE 103.2 mg/dL (74-106); POTASSIUM 3.97 mmol/L (3.5-5.1); TOTAL PROTEIN 6.85 g/dL (6.3-8.2)
[2023-10-08] MEDS: TYLENOL PO PRN (08:46)
[2023-10-08] MEDS ORDERED: OMEGA DHA EPA FISH OIL PO SCH (09:00)
--- NOTE | 2023-10-08 11:12 | PCM.PROG ---
Date/Time Seen Date Seen by Provider: 10/08/23 Time Seen by Provider: 08:45 Provider [facility] Chief Complaint Chief Complaint: ACUTE RENAL INSUF; HYPOKALEMIA; WEAKNESS Subjective Subjective: States he is feeling some better today. Not back to normal. Concerned about having bowel movement. Objective Appearance: Positive No Apparent Distress, Alert and Oriented x3, Thin and Cachectic Chest/Lungs: Positive Symmetrical With Equal Breath Sounds, Clear to Auscultation Bilaterally and Good Air Movement all 4 Lung [place] Heart: Positive RRR and Pulses Normal GI/: Positive Soft, Nontender, Bowel Sounds Normal, No Distention and No Organomegaly Musculoskeletal: Positive Not Examined Neurological: Positive Sensation Intact, Motor intact, Reflexes Intact, Alert, Oriented and Other (generalized weakness) Vital Signs Vital Signs: Vital Signs: Last 24 Hours 10/07/23 11:59 10/07/23 12:45 10/07/23 13:00 Temperature Temperature Source Pulse Rate Pulse Rate [Apical] Respiratory Rate Blood Pressure Blood Pressure Mean Blood Pressure Location Blood Pressure Position O2 Sat by Pulse Oximetry Oxygen Delivery Method Room Air Room Air Telemetry Type Remote Telemetry Telemetry Monitoring Continues Irregular Telemetry Rate (Approximate) 50-60 BPM EKG ID Interval 0.22 H EKG QRS Interval 0.09 Telemetry Strip Reading Robles w/AVB & PVCs 10/07/23 13:44 10/07/23 13:44 10/07/23 15:00 Temperature 97.8 F Temperature Source Tympanic Pulse Rate 58 L Pulse Rate [Apical] Respiratory Rate 20 Blood Pressure 168/54 H Blood Pressure Mean 92 Blood Pressure Location Right Arm Blood Pressure Position Sitting O2 Sat by Pulse Oximetry 95 Oxygen Delivery Method Room Air Room Air Room Air Telemetry Type Telemetry Monitoring Irregular Telemetry Rate (Approximate) EKG ID Interval EKG QRS Interval Telemetry Strip Reading 10/07/23 16:00 10/07/23 17:00 10/07/23 17:47 Temperature Temperature Source Pulse Rate Pulse Rate [Apical] Respiratory Rate Blood Pressure Blood Pressure Mean Blood Pressure Location Blood Pressure Position O2 Sat by Pulse Oximetry Oxygen Delivery Method Room Air Room Air Room Air Telemetry Type Telemetry Monitoring Irregular Telemetry Rate (Approximate) EKG ID Interval EKG QRS Interval Telemetry Strip Reading 10/07/23 17:48 10/07/23 19:00 10/07/23 19:00 Temperature 98.2 F Temperature Source Tympanic Pulse Rate 54 L Pulse Rate [Apical] Respiratory Rate 20 Blood Pressure 154/78 H Blood Pressure Mean 103 Blood Pressure Location Right Arm Blood Pressure Position Sitting O2 Sat by Pulse Oximetry 98 Oxygen Delivery Method Room Air Room Air Telemetry Type Remote Telemetry Telemetry Monitoring Continues Irregular Telemetry Rate (Approximate) 50-60 BPM EKG ID Interval 0.17 EKG QRS Interval 0.08 Telemetry Strip Reading SB W/ PACS 10/07/23 20:00 10/07/23 20:00 10/07/23 21:00 Temperature Temperature Source Pulse Rate Pulse Rate [Apical] 56 L Respiratory Rate Blood Pressure Blood Pressure Mean Blood Pressure Location Blood Pressure Position O2 Sat by Pulse Oximetry Oxygen Delivery Method Room Air Room Air Room Air Telemetry Type Telemetry Monitoring Irregular Telemetry Rate (Approximate) EKG ID Interval EKG QRS Interval Telemetry Strip Reading 10/07/23 21:47 10/07/23 22:00 10/07/23 23:00 Temperature 98 F Temperature Source Temporal Artery Scan Pulse Rate 57 L Pulse Rate [Apical] Respiratory Rate 18 Blood Pressure 140/59 L Blood Pressure Mean 86 Blood Pressure Location Right Arm Blood Pressure Position Supine O2 Sat by Pulse Oximetry 94 L Oxygen Delivery Method Room Air Room Air Room Air Telemetry Type Telemetry Monitoring Irregular Telemetry Rate (Approximate) EKG ID Interval EKG QRS Interval Telemetry Strip Reading 10/08/23 00:00 10/08/23 01:00 10/08/23 01:00 Temperature Temperature Source Pulse Rate Pulse Rate [Apical] Respiratory Rate Blood Pressure Blood Pressure Mean Blood Pressure Location Blood Pressure Position O2 Sat by Pulse Oximetry Oxygen Delivery Method Room Air Room Air Room Air Telemetry Type Telemetry Monitoring Irregular Telemetry Rate (Approximate) EKG ID Interval EKG QRS Interval Telemetry Strip Reading 10/08/23 01:00 10/08/23 02:00 10/08/23 02:00 Temperature 98.1 F Temperature Source Oral Pulse Rate 56 L Pulse Rate [Apical] Respiratory Rate 18 Blood Pressure 148/64 H Blood Pressure Mean 92 Blood Pressure Location Right Arm Blood Pressure Position Supine O2 Sat by Pulse Oximetry 96 Oxygen Delivery Method Room Air Room Air Telemetry Type Remote Telemetry Telemetry Monitoring Continues Irregular Telemetry Rate (Approximate) 50-60 BPM EKG ID Interval 0.20 EKG QRS Interval 0.08 Telemetry Strip Reading SB w/PAC's 10/08/23 03:00 10/08/23 04:00 10/08/23 05:00 Temperature Temperature Source Pulse Rate Pulse Rate [Apical] Respiratory Rate Blood Pressure Blood Pressure Mean Blood Pressure Location Blood Pressure Position O2 Sat by Pulse Oximetry Oxygen Delivery Method Room Air Room Air Room Air Telemetry Type Telemetry Monitoring Irregular Telemetry Rate (Approximate) EKG ID Interval EKG QRS Interval Telemetry Strip Reading 10/08/23 05:54 10/08/23 06:00 10/08/23 07:00 Temperature 98.1 F Temperature Source Oral Pulse Rate 72 Pulse Rate [Apical] Respiratory Rate 16 Blood Pressure 168/57 H Blood Pressure Mean 94 Blood Pressure Location Right Arm Blood Pressure Position Supine O2 Sat by Pulse Oximetry 92 L Oxygen Delivery Method Room Air Room Air Room Air Telemetry Type Telemetry Monitoring Irregular Telemetry Rate (Approximate) EKG ID Interval EKG QRS Interval Telemetry Strip Reading 10/08/23 07:00 10/08/23 08:00 10/08/23 09:00 Temperature Temperature Source Pulse Rate Pulse Rate [Apical] Respiratory Rate Blood Pressure Blood Pressure Mean Blood Pressure Location Blood Pressure Position O2 Sat by Pulse Oximetry Oxygen Delivery Method Room Air Room Air Telemetry Type Remote Telemetry Telemetry Monitoring Continues Irregular Telemetry Rate (Approximate) 60-70 BPM EKG ID Interval 0.18 EKG QRS Interval 0.08 Telemetry Strip Reading SR/F-pac's 10/08/23 10:00 10/08/23 10:00 10/08/23 11:00 Temperature 97.8 F Temperature Source Oral Pulse Rate 64 Pulse Rate [Apical] Respiratory Rate 16 Blood Pressure 131/60 Blood Pressure Mean 83 Blood Pressure Location Left Arm Blood Pressure Position Sitting O2 Sat by Pulse Oximetry 95 Oxygen Delivery Method Room Air Room Air Room Air Telemetry Type Telemetry Monitoring Irregular Telemetry Rate (Approximate) EKG ID Interval EKG QRS Interval Telemetry Strip Reading Lab Results Lab Results: Lab Results: Last 24 Hours 10/08/23 10/07/23 05:17 05:23 WBC 11.64 H RBC 3.45 L Hgb 10.3 L Hct 31.3 L MCV 90.7 MCH 29.9 MCHC 32.9 RDW Coeff of Sri 19.6 H Plt Count 221 Immature Gran % (Auto) 0.5 Neut % (Auto) 69.2 Lymph % (Auto) 12.5 [place] % (Auto) 11.5 H Eos % (Auto) 5.8 Baso % (Auto) 0.5 Neut # (Auto) 8.0 H Lymph # (Auto) 1.5 [place] # (Auto) 1.3 Eos # (Auto) 0.7 Baso # (Auto) 0.1 Immature Gran # (Auto) 0.1 Sodium 134.0 L Potassium 3.97 Chloride 104.0 Carbon Dioxide 27.8 Anion Gap 6.17 BUN 36.4 H Creatinine 1.71 H Estimated GFR (MDRD) 38.00 BUN/Creatinine Ratio 21.28 Glucose 103.2 Calcium 9.10 Magnesium 1.66 Total Bilirubin 1.02 AST 44.0 ALT 15.9 Alkaline Phosphatase 51.2 L Total Protein 6.85 Albumin 3.43 L Globulin 3.42 Albumin/Globulin Ratio 1.00 Additional Comments Additional Comments: I have independently reviewed and interpreted the labs/EKGs/imaging ordered during this hospital stay. I have reviewed outside records that are available in our EMR that pertain to medical stay including imaging/notes/labs from previous visits. Active Medications Active Medications: Medications Generic Name Dose Route Start Last Admin Trade Name Freq PRN Reason Stop Dose Admin Acetaminophen 650 mg 10/08/23 07:42 10/08/23 08:46 Acetaminophen 325 Mg Tablet PO 650 mg Q6H PRN Administration Mild Pain Allopurinol 100 mg 10/07/23 12:00 10/08/23 08:50 Allopurinol 100 Mg Tablet PO 100 mg DAILY BERYL Administration Amlodipine Besylate 5 mg 10/07/23 12:00 10/08/23 08:50 Amlodipine Besylate 5 Mg Tablet PO 5 mg DAILY BERYL Administration Amoxicillin/Clavulanate Potassium 1 tab 10/07/23 12:00 10/08/23 08:49 Amoxicillin/Potassium Clav 875/125 Mg Tablet PO 10/15/23 22:00 1 tab [id number] BERYL Administration Aspirin 81 mg 10/07/23 12:00 10/08/23 08:49 Aspirin 81 Mg Tablet. PO 81 mg [id number] BERYL Administration Atenolol 12.5 mg 10/07/23 12:00 10/08/23 08:59 Atenolol 25 Mg Tablet PO 12.5 mg DAILY BERYL Administration Atorvastatin Calcium 40 mg 10/07/23 21:00 10/07/23 20:33 Atorvastatin Calcium 20 Mg Tablet PO 40 mg BEDTIME BERYL Administration Citalopram Hydrobromide 60 mg 10/07/23 12:00 10/08/23 08:49 Citalopram Hydrobromide 20 Mg Tablet PO 60 mg DAILY BERYL Administration Fish Oil 1,000 mg 10/07/23 12:00 10/08/23 08:50 [place]-3/Dha/Epa/Fish Oil 1,000 Mg Capsule PO 1,000 mg DAILY BERYL Administration Hydralazine HCl 100 mg 10/07/23 12:00 10/08/23 08:49 Hydralazine Hcl 50 Mg Tablet PO 100 mg BID BERYL Administration Lactated Ringer's 1,000 mls @ 100 mls/hr 10/07/23 10:00 10/08/23 05:57 Lactated Ringers IV 100 mls/hr .Q10H BERYL Administration Isosorbide Mononitrate 30 mg 10/07/23 12:00 10/08/23 08:49 Isosorbide Mononitrate 30 Mg Tab.Er.24h PO 30 mg DAILY BERYL Administration Levothyroxine Sodium 112 mcg 10/07/23 12:00 10/08/23 05:57 Levothyroxine Sodium 112 Mcg Tablet PO 112 mcg QDAC2 BERYL Administration Loratadine 10 mg 10/07/23 12:00 10/08/23 08:50 Loratadine 10 Mg Tablet PO 10 mg DAILY BERYL Administration Losartan Potassium 50 mg 10/07/23 12:00 10/08/23 08:50 Losartan Potassium 100 Mg Tablet PO 50 mg BID BERYL Administration Magnesium Oxide 400 mg 10/07/23 12:00 10/08/23 08:49 Magnesium Oxide 400 Mg Tablet PO 400 mg DAILY BERYL Administration Non-Formulary Medication 90 mg 10/07/23 21:00 10/08/23 09:11 Ticagrelor [Brilinta] PO Not Given BID BERYL Non-Formulary Medication 0.25 mcg 10/08/23 09:00 10/08/23 09:06 Calcitriol PO Not Given DAILY BERYL Ondansetron HCl 4 mg 10/07/23 09:43 Ondansetron Hcl/Pf 4 Mg/2 Ml Sdv IVP Q6H PRN Nausea / Vomiting Pantoprazole Sodium 40 mg 10/07/23 12:00 10/08/23 05:57 Pantoprazole Sodium 40 Mg Tablet.Dr PO 40 mg BIDAC2 BERYL Administration Saccharomyces Boulardii 250 mg 10/07/23 12:00 10/08/23 08:48 Saccharomyces Boulardii 250 Mg Capsule PO 250 mg BID BERYL Administration Tamsulosin HCl 0.4 mg 10/07/23 12:00 10/08/23 08:50 Tamsulosin Hcl 0.4 Mg Cap.Er.24h PO 0.4 mg DAILY BERYL Administration Plan Plan: 1. Acute Renal Failure - LR@100mL/hr, avoid nephrotoxins/hypotension, I&O 2. Hyponatremia - mild, replace with fluids, monitor 3. Hypokalemia - Resolved, replaced and monitor 4. Diarrhea in setting of antibiotic use - start on florastor, has not had other antibiotics recently, not concerned for C.diff at this time 5. Anemia - chronic, follows with hem/onc, monitor 6. Left Maxillary Sinusitis - continue previously prescribed augmentin 7. Hypertension - chronic, continue home medications 8. Weakness - PT/OT to eval and treat, dispo TBD 9. Tobacco use - discussed cessation, nicotine patch if patient desires DVT Prophylaxis: Alexi Review Statement Review Statement: I have personally discussed and reviewed the patient's visit/currently labs/imaging/decision making with Dr. Bay, my supervising attending. Greater that 50 minutes spent with patient, 50% of the time spent with this patient was devoted to counseling and coordination of care.
[2023-10-08] MEDS ORDERED: TICAGRELOR 90 MG PO SCH (12:45)
[2023-10-08] MEDS ORDERED: [UNRECOGNIZED DRUG - OTHER] PO SCH (13:00)
[2023-10-08] MEDS: TICAGRELOR 90 MG PO SCH (13:03)
[2023-10-08] MEDS: [UNRECOGNIZED DRUG - OTHER] PO SCH (20:46)
[2023-10-09 05:26] LABS: BASOPHILS % (AUTO) 0.3 % (0.0-3.0); EOSINOPHILS % (AUTO) 8.1 % (0.0-7.0); HEMATOCRIT 28.8 % (42.0-52.0); HEMOGLOBIN 9.6 g/dl (14.0-18.0); IMMATURE GRANULOCYTE # (AUTO) 0.1 (0.0-1.0); IMMATURE GRANULOCYTE % (AUTO) 0.4 % (0.0-5.0); LYMPHOCYTES # (AUTO) 1.5 K/uL (0.60-3.4); LYMPHOCYTES % (AUTO) 12.7 (10.0-50.0); MEAN CORPUSCULAR HEMOGLOBIN 30.3 pg (27.0-31.0); MEAN CORPUSCULAR HGB CONC 33.3 (31.8-35.4); MEAN CORPUSCULAR VOLUME 90.9 fl (80.0-94.0); MONOCYTES # (AUTO) 1.2 K/uL (0.4-2.0); MONOCYTES % (AUTO) 9.9 (0-10); NEUTROPHILS # (AUTO) 8.2 K/ul (2.0-6.9); NEUTROPHILS % (AUTO) 68.6 % (42.2-75.2); PLATELET COUNT 229 10^3/uL (140-440); RDW COEFFICIENT OF VARIATION 19.5 % (11.6-14.8); RED BLOOD COUNT 3.17 10^6/ul (4.70-6.10)
[2023-10-09 05:39] LABS: ALANINE AMINOTRANSFERASE 14.4 U/L (0-50); ALBUMIN 3.34 g/dL (3.5-5.0); ALKALINE PHOSPHATASE 51.3 U/L (56-119); ASPARTATE AMINO TRANSFERASE 32.4 U/L (17-59); BILIRUBIN,TOTAL 0.87 mg/dL (0.2-1.3); BLOOD UREA NITROGEN 34.5 mg/dL (9-20); CALCIUM 9.09 mg/dL (8.4-10.2); CARBON DIOXIDE 25.7 mmol/L (22-30.0); CHLORIDE 103.6 mmol/L (98-107); CREATININE 1.74 mg/dL (0.60-1.10); GLUCOSE 100.2 mg/dL (74-106); POTASSIUM 3.83 mmol/L (3.5-5.1); SODIUM 132.4 mmol/L (134.5-145); TOTAL PROTEIN 6.67 g/dL (6.3-8.2)
--- NOTE | 2023-10-09 11:13 | PCM.PROG ---
Date/Time Seen Date Seen by Provider: 10/09/23 Time Seen by Provider: 09:15 Provider [facility] Chief Complaint Chief Complaint: ACUTE RENAL INSUF; HYPOKALEMIA; WEAKNESS Subjective Subjective: Feeling better today. Walked well with therapy yesterday. Hopeful to go home soon. Objective Appearance: Positive No Apparent Distress, Alert and Oriented x3, Thin and Cachectic Chest/Lungs: Positive Symmetrical With Equal Breath Sounds, Clear to Auscultation Bilaterally and Good Air Movement all 4 Lung [place] Heart: Positive RRR and Pulses Normal GI/: Positive Soft, Nontender, Bowel Sounds Normal and No Distention Musculoskeletal: Positive Not Examined Neurological: Positive Sensation Intact, Motor intact, Reflexes Intact, Alert and Oriented Vital Signs Vital Signs: Vital Signs: Last 24 Hours 10/08/23 12:18 10/08/23 13:00 10/08/23 14:00 Temperature 97.7 F Temperature Source Oral Pulse Rate 70 Pulse Rate [Apical] Respiratory Rate 15 Blood Pressure 134/70 Blood Pressure Mean 91 Blood Pressure Location Right Arm Blood Pressure Position Sitting O2 Sat by Pulse Oximetry 96 Oxygen Delivery Method Room Air Height 6 ft 1 in Weight 142 lb 4.8 oz Telemetry Type Remote Telemetry Telemetry Monitoring Continues Irregular Telemetry Rate (Approximate) 50-60 BPM Telemetry Heart Rate 53 L Telemetry SPO2 EKG [place] Interval 0.18 EKG QRS Interval 0.09 Telemetry Strip Reading Bradycardic arrhythmia with PVCs 10/08/23 18:00 10/08/23 19:00 10/08/23 20:00 Temperature 97.9 F Temperature Source Oral Pulse Rate 58 L Pulse Rate [Apical] 54 L Respiratory Rate 18 Blood Pressure 167/55 H Blood Pressure Mean 92 Blood Pressure Location Left Arm Blood Pressure Position Sitting O2 Sat by Pulse Oximetry 97 Oxygen Delivery Method Room Air Room Air Height Weight Telemetry Type Remote Telemetry Telemetry Monitoring Continues Irregular Telemetry Rate (Approximate) Telemetry Heart Rate 56 L Telemetry SPO2 97 EKG [place] Interval 0.20 EKG QRS Interval 0.09 Telemetry Strip Reading SINUS MADHURI 10/08/23 21:28 10/09/23 01:00 10/09/23 05:41 Temperature 98.0 F 97.8 F Temperature Source Temporal Artery Scan Oral Pulse Rate 59 L 83 Pulse Rate [Apical] Respiratory Rate 18 18 Blood Pressure 171/64 H 157/79 H Blood Pressure Mean 99 105 Blood Pressure Location Right Arm Right Arm Blood Pressure Position Supine Supine O2 Sat by Pulse Oximetry 96 94 L Oxygen Delivery Method Room Air Room Air Height Weight Telemetry Type Remote Telemetry Telemetry Monitoring Continues Irregular Telemetry Rate (Approximate) Telemetry Heart Rate 65 Telemetry SPO2 92 L EKG MN Interval 0.23 H EKG QRS Interval 0.07 Telemetry Strip Reading SINUS RHYTHM W/ 1ST AVB AND PACs 10/09/23 07:00 10/09/23 10:00 Temperature 97.8 F Temperature Source Tympanic Pulse Rate 72 Pulse Rate [Apical] Respiratory Rate 22 H Blood Pressure 161/66 H Blood Pressure Mean 97 Blood Pressure Location Right Arm Blood Pressure Position Sitting O2 Sat by Pulse Oximetry 94 L Oxygen Delivery Method Room Air Height Weight Telemetry Type Remote Telemetry Telemetry Monitoring Continues Irregular Telemetry Rate (Approximate) Telemetry Heart Rate 70 Telemetry SPO2 94 EKG [place] Interval 0.21 H EKG QRS Interval 0.08 Telemetry Strip Reading SR with 1st Degree AVB with freq. PAC's Lab Results Lab Results: Lab Results: Last 24 Hours 10/09/23 05:16 WBC 12.00 H RBC 3.17 L Hgb 9.6 L Hct 28.8 L MCV 90.9 MCH 30.3 MCHC 33.3 RDW Coeff of Sri 19.5 H Plt Count 229 Immature Gran % (Auto) 0.4 Neut % (Auto) 68.6 Lymph % (Auto) 12.7 [place] % (Auto) 9.9 Eos % (Auto) 8.1 H Baso % (Auto) 0.3 Neut # (Auto) 8.2 H Lymph # (Auto) 1.5 [place] # (Auto) 1.2 Eos # (Auto) 1.0 H Baso # (Auto) 0.0 Immature Gran # (Auto) 0.1 Sodium 132.4 L Potassium 3.83 Chloride 103.6 Carbon Dioxide 25.7 Anion Gap 6.93 BUN 34.5 H Creatinine 1.74 H Estimated GFR (MDRD) 38.00 BUN/Creatinine Ratio 19.82 Glucose 100.2 Calcium 9.09 Total Bilirubin 0.87 AST 32.4 ALT 14.4 Alkaline Phosphatase 51.3 L Total Protein 6.67 Albumin 3.34 L Globulin 3.33 Albumin/Globulin Ratio 1.00 Additional Comments Additional Comments: I have independently reviewed and interpreted the labs/EKGs/imaging ordered during this hospital stay. I have reviewed outside records that are available in our EMR that pertain to medical stay including imaging/notes/labs from previous visits. Active Medications Active Medications: Medications Generic Name Dose Route Start Last Admin Trade Name Daleq PRN Reason Stop Dose Admin Acetaminophen 650 mg 10/08/23 07:42 10/08/23 16:24 Acetaminophen 325 Mg Tablet PO 650 mg Q6H PRN Administration Mild Pain Allopurinol 100 mg 10/07/23 12:00 10/09/23 08:51 Allopurinol 100 Mg Tablet PO 100 mg DAILY BERYL Administration Amlodipine Besylate 5 mg 10/07/23 12:00 10/09/23 08:51 Amlodipine Besylate 5 Mg Tablet PO 5 mg DAILY BERYL Administration Aspirin 81 mg 10/07/23 12:00 10/09/23 08:50 Aspirin 81 Mg Tablet.Dr PO 81 mg DAILYWM2 BERYL Administration Atenolol 12.5 mg 10/07/23 12:00 10/08/23 08:59 Atenolol 25 Mg Tablet PO 12.5 mg DAILY BERYL Administration Atorvastatin Calcium 40 mg 10/07/23 21:00 10/08/23 20:44 Atorvastatin Calcium 20 Mg Tablet PO 40 mg BEDTIME BERYL Administration Citalopram Hydrobromide 60 mg 10/07/23 12:00 10/09/23 08:50 Citalopram Hydrobromide 20 Mg Tablet PO 60 mg DAILY BERYL Administration Fish Oil 1,000 mg 10/07/23 12:00 10/09/23 08:50 [place]-3/Dha/Epa/Fish Oil 1,000 Mg Capsule PO 1,000 mg DAILY BERYL Administration Hydralazine HCl 100 mg 10/07/23 12:00 10/09/23 08:51 Hydralazine Hcl 50 Mg Tablet PO 100 mg BID BERYL Administration Lactated Ringer's 1,000 mls @ 100 mls/hr 10/07/23 10:00 10/09/23 03:19 Lactated Ringers IV 100 mls/hr .Q10H BERYL Administration Isosorbide Mononitrate 30 mg 10/07/23 12:00 10/09/23 08:51 Isosorbide Mononitrate 30 Mg Tab.Er.24h PO 30 mg DAILY BERYL Administration Levothyroxine Sodium 112 mcg 10/07/23 12:00 10/09/23 05:22 Levothyroxine Sodium 112 Mcg Tablet PO 112 mcg QDAC2 BERYL Administration Loratadine 10 mg 10/07/23 12:00 10/09/23 08:50 Loratadine 10 Mg Tablet PO 10 mg DAILY BERYL Administration Losartan Potassium 50 mg 10/07/23 12:00 10/09/23 08:50 Losartan Potassium 100 Mg Tablet PO 50 mg BID BERYL Administration Magnesium Oxide 400 mg 10/07/23 12:00 10/09/23 08:50 Magnesium Oxide 400 Mg Tablet PO 400 mg DAILY BERYL Administration Non-Formulary Medication 0.25 mcg 10/08/23 13:00 10/09/23 08:51 Calcitriol PO 0.25 mcg DAILY BERYL Administration Non-Formulary Medication 90 mg 10/08/23 12:45 10/09/23 08:51 Ticagrelor [Brilinta] PO 90 mg BID BERYL Administration Non-Formulary Medication 1 tab 10/08/23 21:00 10/09/23 08:51 Amoxicillin-Pot Clavulanate [Amoxicillin-Pot Clavulanate] PO 10/16/23 23:00 1 tab BID BERYL Administration Ondansetron HCl 4 mg 10/07/23 09:43 Ondansetron Hcl/Pf 4 Mg/2 Ml Sdv IVP Q6H PRN Nausea / Vomiting Pantoprazole Sodium 40 mg 10/07/23 12:00 10/09/23 05:22 Pantoprazole Sodium 40 Mg Tablet.Dr PO 40 mg BIDAC2 BERYL Administration Saccharomyces Boulardii 250 mg 10/07/23 12:00 10/09/23 08:50 Saccharomyces Boulardii 250 Mg Capsule PO 250 mg BID BERYL Administration Tamsulosin HCl 0.4 mg 10/07/23 12:00 10/09/23 08:51 Tamsulosin Hcl 0.4 Mg Cap.Er.24h PO 0.4 mg DAILY BERYL Administration Plan Plan: 1. Acute Renal Failure - Improving, LR@100mL/hr, avoid nephrotoxins/hypotension, I&O 2. Hyponatremia - mild, replace with fluids, monitor 3. Hypokalemia - Resolved, replaced and monitor 4. Diarrhea in setting of antibiotic use - Resolved, on florastor, has not had other antibiotics recently, not concerned for C.diff at this time 5. Anemia - chronic, follows with hem/onc, monitor 6. Left Maxillary Sinusitis - Improving, continue previously prescribed augmentin 7. Hypertension - chronic, continue home medications 8. Weakness - Improving, PT/OT to eval and treat, dispo TBD 9. Tobacco use - discussed cessation, nicotine patch if patient desires DVT Prophylaxis: Alexi Review Statement Review Statement: I have personally discussed and reviewed the patient's visit/currently labs/imaging/decision making with Dr. Bay, my supervising attending. Greater that 50 minutes spent with patient, 50% of the time spent with this patient was devoted to counseling and coordination of care.
[2023-10-10] MEDS: ZOFRAN 4 MG/2 ML IVP PRN (02:23)
[2023-10-10 05:34] LABS: BASOPHILS % (AUTO) 0.3 % (0.0-3.0); EOSINOPHILS # (AUTO) 0.6 K/ul (0.0-0.7); EOSINOPHILS % (AUTO) 5.3 % (0.0-7.0); HEMATOCRIT 30.4 % (42.0-52.0); HEMOGLOBIN 10.2 g/dl (14.0-18.0); IMMATURE GRANULOCYTE # (AUTO) 0.1 (0.0-1.0); IMMATURE GRANULOCYTE % (AUTO) 0.5 % (0.0-5.0); LYMPHOCYTES # (AUTO) 1.1 K/uL (0.60-3.4); LYMPHOCYTES % (AUTO) 9.1 (10.0-50.0); MEAN CORPUSCULAR HEMOGLOBIN 30.2 pg (27.0-31.0); MEAN CORPUSCULAR HGB CONC 33.6 (31.8-35.4); MEAN CORPUSCULAR VOLUME 89.9 fl (80.0-94.0); MONOCYTES % (AUTO) 8.7 (0-10); NEUTROPHILS % (AUTO) 76.1 % (42.2-75.2); PLATELET COUNT 224 10^3/uL (140-440); RDW COEFFICIENT OF VARIATION 19.7 % (11.6-14.8); RED BLOOD COUNT 3.38 10^6/ul (4.70-6.10); WHITE BLOOD COUNT 11.82 K/ul (4.2-10.2)
[2023-10-10 05:48] LABS: ALANINE AMINOTRANSFERASE 14.5 U/L (0-50); ALBUMIN 3.38 g/dL (3.5-5.0); ALKALINE PHOSPHATASE 49.5 U/L (56-119); ASPARTATE AMINO TRANSFERASE 34.3 U/L (17-59); BILIRUBIN,TOTAL 1.09 mg/dL (0.2-1.3); BLOOD UREA NITROGEN 26.3 mg/dL (9-20); CALCIUM 9.22 mg/dL (8.4-10.2); CARBON DIOXIDE 25.2 mmol/L (22-30.0); CHLORIDE 101.2 mmol/L (98-107); GLUCOSE 107.8 mg/dL (74-106); POTASSIUM 3.68 mmol/L (3.5-5.1); SODIUM 131.1 mmol/L (134.5-145); TOTAL PROTEIN 6.49 g/dL (6.3-8.2)
[2023-10-10 06:01] LABS: CREATININE 1.22 mg/dL (0.60-1.10)
--- NOTE | 2023-10-10 09:41 | CT ---
EXAM: CT ABDOMEN AND PELVIS WITHOUT CONTRAST HISTORY: Abdominal pain. TECHNIQUE: CT acquisition of the abdomen and pelvis from the lower thorax through the pelvis without IV contrast administration. 2-D coronal and sagittal reformatted images were obtained from the axial source images. Oral Contrast: None. CT Dose Reduction Techniques Performed: Yes. COMPARISON: None. FINDINGS: Visualized portions of the lower chest included in this examination of the abdomen and pelvis show a small amount of debris in several subsegmental bronchi of both lower lobes. Calcified granuloma and mild dependent atelectasis of the left lower lobe. Trace left pleural effusion. Coronary artery maricarmen cifications and stenting. Evaluation of the solid abdominal organs is limited without IV contrast. No obvious liver mass is id entified. Calcified granulomas of the liver and spleen. Patient is status post cholecystectomy. Mi ld subsequent prominence of the intrahepatic biliary tree. No abnormal distension of the common duct . The pancreas and adrenal glands have a normal appearance. Moderate arterial calcifications of bot h kidneys. No definite renal stones. 0.6 cm hyperdensity of the left kidney, probably a hemorrhagic /proteinaceous cyst. 2.6 cm simple cyst of the right kidney and several smaller cysts of both kidney s. No visible ureteral stones. No hydronephrosis. Mild strandy changes adjacent to both kidneys. Apparent thickening and indistinctness of the bladder wall. Small bladder wall diverticulum of the b ladder dome on the right. The prostate gland is prominent size, measuring 4.8 x 3.3 cm. Mild coloni c diverticulosis. Apparent diffuse wall thickening of the proximal and mid sigmoid colon. No adjace nt inflammatory change. Normal retrocecal appendix. Moderate to severe diffuse atherosclerosis of t he abdominal aorta and major branch vessels. No aneurysm of the abdominal aorta. 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 Bone window images show no significant lytic or sclerotic bone lesions. Subacute to chronic nondispl aced fracture of the left 11th rib posteriorly. Transitional vertebra of the lumbosacral region. IMPRESSION: 1. Mild bladder wall thickening and indistinctness, with a small bladder wall diverticula, and promi nent prostate. Findings might represent bladder wall hypertrophy related to the prominent prostate. Cystitis also possible. Please correlate with urinalysis. 2. Mild strandy changes adjacent to both kidneys. Might be physiologic. Infection also possible. 3. Colonic diverticulosis, with equivocal diverticulitis of the sigmoid colon. No perforation or ab scess. 4. Normal retrocecal appendix. 5. Cholecystectomy. 6. Trace left pleural effusion. All CT scans are performed using dose optimization techniques as appropriate to the performed exam an d include at least one of the following: Automated exposure control, adjustment of the mA and/or kV according t o size, and the use of iterative reconstruction technique.
[2023-10-10] MEDS: REGLAN IVP PRN (09:42)
[2023-10-10] MEDS: MORPHINE 2 MG/ML SYRINGE IVP ONE (09:42)
[2023-10-10] MEDS ORDERED: MORPHINE 2 MG/ML SYRINGE IVP PRN (09:52)
--- NOTE | 2023-10-10 10:03 | PCM.PROG ---
Date/Time Seen Date Seen by Provider: 10/10/23 Time Seen by Provider: 08:20 Provider Provider[facility] Chief Complaint Chief Complaint: ACUTE RENAL INSUF; HYPOKALEMIA; WEAKNESS Subjective Subjective: Patient became nauseated during the night last night and has continued this am. Has diffuse abdominal pain. Has required 2 doses of zofran. Also has complaints of burning on urination. Objective Appearance: Positive Alert and Oriented x3 and Ill-Appearing Chest/Lungs: Positive Symmetrical With Equal Breath Sounds, Clear to Auscultation Bilaterally and Good Air Movement all 4 Lung [place] Heart: Positive RRR and Pulses Normal GI/: Positive Soft, Bowel Sounds Normal, No Distention, No Organomegaly and Tender (throughout abdomen) Musculoskeletal: Positive Not Examined Neurological: Positive Sensation Intact, Motor intact, Reflexes Intact, Alert and Oriented Vital Signs Vital Signs: Vital Signs: Last 24 Hours 10/09/23 10:00 10/09/23 13:00 10/09/23 14:00 Temperature 97.8 F 98.2 F Temperature Source Tympanic Oral Pulse Rate 72 85 Pulse Rate [Apical] Respiratory Rate 22 H 18 Blood Pressure 161/66 H 130/65 Blood Pressure Mean 97 86 Blood Pressure Location Right Arm Left Arm Blood Pressure Position Sitting Supine O2 Sat by Pulse Oximetry 94 L 95 Oxygen Delivery Method Room Air Room Air Telemetry Type Remote Telemetry Telemetry Monitoring Continues Irregular Telemetry Rate (Approximate) Telemetry Heart Rate 96 EKG [place] Interval 0.1 L EKG QRS Interval 0.04 L Telemetry Strip Reading SR with PAC 10/09/23 17:41 10/09/23 19:00 10/09/23 20:00 Temperature Temperature Source Pulse Rate 71 Pulse Rate [Apical] 67 Respiratory Rate 18 Blood Pressure 151/62 H Blood Pressure Mean 91 Blood Pressure Location Left Arm Blood Pressure Position Supine O2 Sat by Pulse Oximetry 98 Oxygen Delivery Method Room Air Room Air Telemetry Type Remote Telemetry Telemetry Monitoring Continues Irregular Telemetry Rate (Approximate) Telemetry Heart Rate 64 EKG [place] Interval 0.20 EKG QRS Interval 0.06 Telemetry Strip Reading SR 10/09/23 21:24 10/10/23 01:00 10/10/23 02:00 Temperature 97.8 F 97.9 F Temperature Source Temporal Artery Scan Temporal Artery Scan Pulse Rate 67 78 Pulse Rate [Apical] Respiratory Rate 16 16 Blood Pressure 172/64 H 164/60 H Blood Pressure Mean 100 94 Blood Pressure Location Left Arm Right Arm Blood Pressure Position Supine Supine O2 Sat by Pulse Oximetry 96 95 Oxygen Delivery Method Room Air Room Air Telemetry Type Remote Telemetry Telemetry Monitoring Continues Irregular Telemetry Rate (Approximate) Telemetry Heart Rate 64 EKG [place] Interval 0.16 EKG QRS Interval 0.07 Telemetry Strip Reading SR 10/10/23 04:46 10/10/23 05:30 10/10/23 07:00 Temperature 97.4 F L Temperature Source Temporal Artery Scan Pulse Rate 73 Pulse Rate [Apical] Respiratory Rate 18 Blood Pressure 185/65 H 178/72 H Blood Pressure Mean 105 107 Blood Pressure Location Left Arm Left Arm Blood Pressure Position Supine O2 Sat by Pulse Oximetry 95 Oxygen Delivery Method Room Air Room Air Telemetry Type Remote Telemetry Telemetry Monitoring Continues Irregular Telemetry Rate (Approximate) 110-120 BPM Telemetry Heart Rate EKG [place] Interval EKG QRS Interval 0.04 L Telemetry Strip Reading Afib with RVR 10/10/23 08:00 Temperature Temperature Source Pulse Rate Pulse Rate [Apical] Respiratory Rate 16 Blood Pressure Blood Pressure Mean Blood Pressure Location Blood Pressure Position O2 Sat by Pulse Oximetry Oxygen Delivery Method Room Air Telemetry Type Telemetry Monitoring Irregular Telemetry Rate (Approximate) Telemetry Heart Rate EKG [place] Interval EKG QRS Interval Telemetry Strip Reading Lab Results Lab Results: Lab Results: Last 24 Hours 10/10/23 05:05 WBC 11.82 H RBC 3.38 L Hgb 10.2 L Hct 30.4 L MCV 89.9 MCH 30.2 MCHC 33.6 RDW Coeff of Sri 19.7 H Plt Count 224 Immature Gran % (Auto) 0.5 Neut % (Auto) 76.1 H Lymph % (Auto) 9.1 L [place] % (Auto) 8.7 Eos % (Auto) 5.3 Baso % (Auto) 0.3 Neut # (Auto) 9.0 H Lymph # (Auto) 1.1 [place] # (Auto) 1.0 Eos # (Auto) 0.6 Baso # (Auto) 0.0 Immature Gran # (Auto) 0.1 Sodium 131.1 L Potassium 3.68 Chloride 101.2 Carbon Dioxide 25.2 Anion Gap 8.38 BUN 26.3 H Creatinine 1.22 H D Estimated GFR (MDRD) 57.00 BUN/Creatinine Ratio 21.55 Glucose 107.8 H Calcium 9.22 Total Bilirubin 1.09 AST 34.3 ALT 14.5 Alkaline Phosphatase 49.5 L Total Protein 6.49 Albumin 3.38 L Globulin 3.11 Albumin/Globulin Ratio 1.08 Additional Comments Additional Comments: I have independently reviewed and interpreted the labs/EKGs/imaging ordered during this hospital stay. I have reviewed outside records that are available in our EMR that pertain to medical stay including imaging/notes/labs from previous visits. Active Medications Active Medications: Medications Generic Name Dose Route Start Last Admin Trade Name Freq PRN Reason Stop Dose Admin Acetaminophen 650 mg 10/08/23 07:42 10/10/23 05:18 Acetaminophen 325 Mg Tablet PO 650 mg Q6H PRN Administration Mild Pain Allopurinol 100 mg 10/07/23 12:00 10/09/23 08:51 Allopurinol 100 Mg Tablet PO 100 mg DAILY BERYL Administration Amlodipine Besylate 5 mg 10/07/23 12:00 10/09/23 08:51 Amlodipine Besylate 5 Mg Tablet PO 5 mg DAILY BERYL Administration Aspirin 81 mg 10/07/23 12:00 10/09/23 08:50 Aspirin 81 Mg Tablet.Dr PO 81 mg DAILYWM2 BERYL Administration Atenolol 12.5 mg 10/07/23 12:00 10/08/23 08:59 Atenolol 25 Mg Tablet PO 12.5 mg DAILY BERYL Administration Atorvastatin Calcium 40 mg 10/07/23 21:00 10/09/23 20:44 Atorvastatin Calcium 20 Mg Tablet PO 40 mg BEDTIME BERYL Administration Citalopram Hydrobromide 60 mg 10/07/23 12:00 10/09/23 08:50 Citalopram Hydrobromide 20 Mg Tablet PO 60 mg DAILY BERYL Administration Fish Oil 1,000 mg 10/07/23 12:00 10/09/23 08:50 [place]-3/Dha/Epa/Fish Oil 1,000 Mg Capsule PO 1,000 mg DAILY BERYL Administration Hydralazine HCl 100 mg 10/07/23 12:00 10/09/23 20:43 Hydralazine Hcl 50 Mg Tablet PO 100 mg BID BERYL Administration Lactated Ringer's 1,000 mls @ 100 mls/hr 10/07/23 10:00 10/09/23 23:33 Lactated Ringers IV 100 mls/hr .Q10H BERYL Administration Piperacillin Sod/Tazobactam 100 mls @ 200 mls/hr 10/10/23 12:00 Sod 3.375 gm/ Sodium Chloride IV 10/13/23 11:59 Q6HR [facility] Isosorbide Mononitrate 30 mg 10/07/23 12:00 10/09/23 08:51 Isosorbide Mononitrate 30 Mg Tab.Er.24h PO 30 mg DAILY BERYL Administration Levothyroxine Sodium 112 mcg 10/07/23 12:00 10/10/23 05:18 Levothyroxine Sodium 112 Mcg Tablet PO 112 mcg QDAC2 [facility] Administration Loratadine 10 mg 10/07/23 12:00 10/09/23 08:50 Loratadine 10 Mg Tablet PO 10 mg DAILY [facility] Administration Losartan Potassium 50 mg 10/07/23 12:00 10/09/23 20:43 Losartan Potassium 100 Mg Tablet PO 50 mg BID BERYL Administration Magnesium Oxide 400 mg 10/07/23 12:00 10/09/23 08:50 Magnesium Oxide 400 Mg Tablet PO 400 mg DAILY [facility] Administration Metoclopramide HCl 5 mg 10/10/23 09:30 10/10/23 09:42 Metoclopramide Hcl 10 Mg/2 Ml IVP 5 mg Q6H PRN Administration Nausea / Vomiting Morphine Sulfate 2 mg 10/10/23 09:52 Morphine Sulfate 2 Mg/Ml Syringe IVP Q6H PRN Pain Non-Formulary Medication 0.25 mcg 10/08/23 13:00 10/09/23 08:51 Calcitriol PO 0.25 mcg DAILY [facility] Administration Non-Formulary Medication 90 mg 10/08/23 12:45 10/09/23 20:45 Ticagrelor [Brilinta] PO 90 mg BID [facility] Administration Ondansetron HCl 4 mg 10/07/23 09:43 10/10/23 08:35 Ondansetron Hcl/Pf 4 Mg/2 Ml Sdv IVP 4 mg Q6H PRN Administration Nausea / Vomiting Pantoprazole Sodium 40 mg 10/07/23 12:00 10/10/23 05:18 Pantoprazole Sodium 40 Mg Tablet.Dr PO 40 mg BIDAC2 [facility] Administration Saccharomyces Boulardii 250 mg 10/07/23 12:00 10/09/23 20:44 Saccharomyces Boulardii 250 Mg Capsule PO 250 mg BID BERYL Administration Tamsulosin HCl 0.4 mg 10/07/23 12:00 10/09/23 08:51 Tamsulosin Hcl 0.4 Mg Cap.Er.24h PO 0.4 mg DAILY BERYL Administration Plan Plan: 1. Acute sigmoid diverticulitis - NPO ice chips and meds only, zosyn Q6H, LR@100mL/hr, zofran and reglan for nausea/vomiting prn, morphine for pain prn 2. Cystitis - suspicious on CT, ordered UA 3. Acute Renal Failure - Resolved, at baseline kidney function, continuing fluids due to NPO status, avoid nephrotoxins/hypotension, I&O 4. A fib - takes atenolol at home, held due to bradycardia, HR up to 130s this am, trial dose of metoprolol 6.25 5. Hyponatremia - mild, replace with fluids, monitor 6. Hypokalemia - Resolved, replaced and monitor 7. Anemia - chronic, follows with hem/onc, monitor 8. Left Maxillary Sinusitis - Resolved 9. Hypertension - chronic, continue home medications 10. Weakness - Improving, PT/OT to eval and treat, dispo TBD Review Statement Review Statement: I have personally discussed and reviewed the patient's visit/currently labs/imaging/decision making with Dr. Bay, my supervising attending. Greater that 50 minutes spent with patient, 50% of the time spent with this patient was devoted to counseling and coordination of care.
[2023-10-10 10:41] LABS: BILIRUBIN,URINE Negative (NEGATIVE); CLARITY,URINE Clear (CLEAR); COLOR,URINE Yellow (YELLOW); GLUCOSE, URINE (UA) Negative (NEGATIVE); KETONES,URINE Negative (NEGATIVE); LEUKOCYTE ESTERASE ,URINE Negative (NEGATIVE); NITRITE,URINE Negative (NEGATIVE); PH,URINE 7.5 (5-9); PROTEIN,URINE 2+ (NEGATIVE); SQUAMOUS EPITHELIAL CELL,UR NOT PRESENT (0-5); URINE RBC, MICROSCOPIC 0-2 (0-2); URINE, BLOOD Trace-lysed (NEGATIVE); UROBILINOGEN,URINE 0.2 (0.2)
[2023-10-10] MEDS: ZOSYN 3.375 GM 3.375 GM in SODIUM CHLORIDE 100ML 100 ML IV SCH (11:15)
[2023-10-10] MEDS: SUBLIMAZE IVP PRN (12:17)
[2023-10-10] MEDS: LOPRESSOR PO ONE ×2 (15:29→17:00)
[2023-10-11 05:30] LABS: BASOPHILS % (AUTO) 0.4 % (0.0-3.0); EOSINOPHILS # (AUTO) 0.7 K/ul (0.0-0.7); EOSINOPHILS % (AUTO) 7.2 % (0.0-7.0); HEMATOCRIT 30.9 % (42.0-52.0); HEMOGLOBIN 10.3 g/dl (14.0-18.0); IMMATURE GRANULOCYTE % (AUTO) 0.4 % (0.0-5.0); LYMPHOCYTES # (AUTO) 1.2 K/uL (0.60-3.4); LYMPHOCYTES % (AUTO) 12.5 (10.0-50.0); MEAN CORPUSCULAR HEMOGLOBIN 29.9 pg (27.0-31.0); MEAN CORPUSCULAR HGB CONC 33.3 (31.8-35.4); MEAN CORPUSCULAR VOLUME 89.8 fl (80.0-94.0); MONOCYTES % (AUTO) 10.4 (0-10); NEUTROPHILS # (AUTO) 6.7 K/ul (2.0-6.9); NEUTROPHILS % (AUTO) 69.1 % (42.2-75.2); PLATELET COUNT 215 10^3/uL (140-440); RDW COEFFICIENT OF VARIATION 19.2 % (11.6-14.8); RED BLOOD COUNT 3.44 10^6/ul (4.70-6.10); WHITE BLOOD COUNT 9.65 K/ul (4.2-10.2)
[2023-10-11 05:47] LABS: ALANINE AMINOTRANSFERASE 17.1 U/L (0-50); ALBUMIN 3.32 g/dL (3.5-5.0); ALKALINE PHOSPHATASE 48.3 U/L (56-119); ASPARTATE AMINO TRANSFERASE 46.1 U/L (17-59); BILIRUBIN,TOTAL 1.24 mg/dL (0.2-1.3); BLOOD UREA NITROGEN 19.2 mg/dL (9-20); CALCIUM 9.24 mg/dL (8.4-10.2); CARBON DIOXIDE 26.4 mmol/L (22-30.0); CHLORIDE 101.1 mmol/L (98-107); CREATININE 1.32 mg/dL (0.60-1.10); GLUCOSE 96.6 mg/dL (74-106); POTASSIUM 3.86 mmol/L (3.5-5.1); SODIUM 130.2 mmol/L (134.5-145); TOTAL PROTEIN 6.63 g/dL (6.3-8.2)
[2023-10-11] MEDS: SODIUM CHLORIDE PO SCH (08:34)
--- NOTE | 2023-10-11 10:15 | DCSUM ---
Admission Date Admission Date: 10/07/23 Discharge Date Discharge Date: 10/11/23 Admission Diagnosis Admission Diagnosis: 1. Acute Renal Failure 2. Hyponatremia 3. Hypokalemia 4. Diarrhea in setting of antibiotic use 5. Anemia 6. Left Maxillary Sinusitis 7. Hypertension 8. Weakness 9. Tobacco use Discharge Diagnosis Discharge Diagnosis: 1. Acute sigmoid diverticulitis - Improved 2. Cystitis - r/o, UA negative 3. Acute Renal Failure - Resolved 4. A fib - Chronic, stable 5. Hyponatremia - Chronic, stable, added salt tabs 6. Hypokalemia - Resolved 7. Anemia - Chronic, stable 8. Left Maxillary Sinusitis - Resolved 9. Hypertension - Chronic, stable 10. Weakness - Improving Hospital Provider Hospital Provider[facility] Primary Care Physician Primary Care Physician: JAZZMINE MACIEL Summary of History and Physical Summary of History and Physical: 83 yo male presented to the ER with son for weakness. Patient reports that he went to [facility] 2 times and was sent home. States he has no energy and is unable to get up out of his chair. Has had diarrhea over the last couple days. Not eating or drinking well because of this. Denies fever, chest pain, sob, vomiting. Denies bloody or black stools. Has complaints of L shoulder pain. No injury or fall that he is aware of. Has attempted to get out of his recliner and states he "felt a pop". Patient was seen at [facility] ER on 10/04 and 10/06. On 10/04, patient was diagnosed with left maxillary sinusitis and discharged with an RX for flonase and augmenti n in which he has been taking. No note in medical record for 10/06 to determine dx and treatment. Labs worsened from 10/04 to 10/06 with BUN of 36 to 46 and creatinine of 1.77 to 2.01. On 09/15, patient underwent cardiac catheterization by Dr. Ashby at [facility]. The following was completed: successful complex percutaneous coronary intervention to sequential and severely calcified lesions throughout the right coronary artery, requiring use of intravascular lithotripsy to facilitate full expansion of lesions. Drug-eluting stents placed included a 2.5 x 12 to the distal vessel, 3.25 x 15 to the mid vessel, and a 2.5 x 12 covering the ostium. Successful percutaneous coronary convention to the mid circumflex/OM 2, using a 2.5 x 33 mm drug-eluting stent, postdilated to 3.0 proximally Son reported in ER concerns for caring for his father at home due to himself being disabled and having the inability to lift on him. Called [facility] last night requesting SNF/Rehab placement or resources. Hospital Course Subjective: He was initially treated for RUBEN with LR@100mL/hr. Renal function slowly improved. Planned to d/c patient yesterday until he became nauseated and vomited x2. On exam, patient had diffuse abdominal pain. CT scan completed and revealed sigmoid diverticulitis. Patient was made NPO and started on zosyn. This am patient tolerating diet. Pain, nausea, and vomiting all subsided and requesting to go home. No changes made to home medications. Appearance: Pleasant, No Apparent Distress and Alert HEENT: MMM, Supple and No JVD CVS: No Murmur and No Rubs Abdomen: Soft, Non-Tender and No Distention Respiratory: No Dyspnea Extremities: No Edema Vital Signs: Most Recent Vital Signs Temperature 97.8 F 10/11/23 06:00 Temperature Source Temporal Artery Scan 10/11/23 06:00 Temperature Source Infrared 10/07/23 02:30 Pulse Rate 72 10/11/23 06:00 Respiratory Rate 18 10/11/23 06:00 Blood Pressure 139/64 10/11/23 06:00 Blood Pressure Mean 89 10/11/23 06:00 Blood Pressure Left Arm 173/60 10/07/23 09:26 Blood Pressure Location Left Arm 10/11/23 06:00 Blood Pressure Position Supine 10/11/23 06:00 O2 Sat by Pulse Oximetry 95 10/11/23 06:00 Oxygen Delivery Method Room Air 10/11/23 06:00 Height 6 ft 1 in 10/08/23 12:18 Weight 142 lb 4.8 oz 10/08/23 12:18 Telemetry Type Remote Telemetry 10/11/23 07:00 Telemetry Monitoring Continues 10/11/23 07:00 Irregular Telemetry Rate (Approximate) 70-80 BPM 10/11/23 07:00 Telemetry Heart Rate 68 10/11/23 01:00 Telemetry SPO2 94 10/09/23 07:00 EKG AR Interval 0.19 10/11/23 01:00 EKG QRS Interval 0.07 10/11/23 07:00 Telemetry Strip Reading A-Fib with occasional P waves 10/11/23 07:00 Lab Results Last 24 Hours: 10/11/23 10/10/23 05:02 10:03 WBC 9.65 RBC 3.44 L Hgb 10.3 L Hct 30.9 L MCV 89.8 MCH 29.9 MCHC 33.3 RDW Coeff of Sri 19.2 H Plt Count 215 Immature Gran % (Auto) 0.4 Neut % (Auto) 69.1 Lymph % (Auto) 12.5 [place] % (Auto) 10.4 H Eos % (Auto) 7.2 H Baso % (Auto) 0.4 Neut # (Auto) 6.7 Lymph # (Auto) 1.2 [place] # (Auto) 1.0 Eos # (Auto) 0.7 Baso # (Auto) 0.0 Immature Gran # (Auto) 0.0 Sodium 130.2 L Potassium 3.86 Chloride 101.1 Carbon Dioxide 26.4 Anion Gap 6.56 BUN 19.2 Creatinine 1.32 H Estimated GFR (MDRD) 52.00 BUN/Creatinine Ratio 14.54 Glucose 96.6 Calcium 9.24 Total Bilirubin 1.24 AST 46.1 ALT 17.1 Alkaline Phosphatase 48.3 L Total Protein 6.63 Albumin 3.32 L Globulin 3.31 Albumin/Globulin Ratio 1.00 Urine Color Yellow Urine Clarity Clear Urine pH 7.5 Ur Specific [place] 1.025 Urine Protein 2+ H Urine Glucose (UA) Negative Urine Ketones Negative Urine Blood Trace-lysed Urine Nitrite Negative Urine Bilirubin Negative Urine Urobilinogen 0.2 Ur Leukocyte Esterase Negative Urine Microscopic RBC 0-2 Ur Squamous Epith Cells Not present Discharge Instructions Discharge Planning: Discharge Planning > 40 minutes If patient is discharged with left ventricular systolic dysfunction: NA Discharged with a beta perry? [] If no, why not? [] Discharged with an carlos/arb? [] If no, why not? [] DX: ACUTE KIDNEY INJURY, SIGMOID DIVERTICULITIS RX: AUGMENTIN, ZOFRAN, SODIUM CHLORIDE, PROBIOTIC BLAND DIET, ADVANCE TOLERATED FOLLOW-UP WITH PCP NEXT WEEK HOME HEALTH PT/OT Discharge Medications: Medications at Discharge (Home Meds & RX) citalopram 40 mg tablet (Celexa) 60 mg PO DAILY 10/30/17 pantoprazole 40 mg tablet,delayed release 40 mg PO BID 10/30/17 tamsulosin 0.4 mg capsule 0.4 mg PO DAILY 10/30/17 allopurinol 100 mg tablet 100 mg PO DAILY 06/25/23 amlodipine 10 mg tablet 5 mg PO DAILY 06/25/23 aspirin 81 mg tablet,delayed release (Lor Low Dose Aspirin) 81 mg PO DAILY atorvastatin 80 mg tablet 40 mg PO BEDTIME 06/25/23 calcitriol 0.25 mcg capsule 0.25 mcg PO DAILY 06/25/23 hydralazine 100 mg tablet 100 mg PO BID 06/25/23 isosorbide mononitrate 30 mg tablet,extended release 24 hr 30 mg PO DAILY 06/25/23 levothyroxine 112 mcg tablet (Euthyrox) 112 mcg PO DAILY 06/25/23 loratadine 10 mg tablet (Allerclear) 10 mg PO DAILY 06/25/23 losartan 100 mg tablet (Cozaar) 50 mg PO BID 06/25/23 magnesium oxide 400 mg PO DAILY 06/25/23 nitroglycerin 0.4 mg sublingual tablet 0.4 mg sublingual Q5-15M PRN chest pain 06/25/23 omega 0-lsb-yfe-fish oil 300 mg-1,000 mg capsule (Fish Oil) 1 cap PO DAILY 06/25/23 atenolol 25 mg tablet 12.5 mg (1/2 x 25 mg) PO DAILY #30 tabs 06/27/23 furosemide 20 mg tablet 20 mg PO DAILY 08/27/23 amoxicillin 875 mg-potassium clavulanate 125 mg tablet 1 tab PO BID 10/07/23 fluticasone propionate 50 mcg/actuation nasal spray,suspension 2 spray intranasal DAILY 10/07/23 ticagrelor 90 mg tablet (Brilinta) 90 mg PO BID 10/07/23 amoxicillin 875 mg-potassium clavulanate 125 mg tablet 1 tab PO BID 10/08/23 Discharge Plan Discharge Discharge Orders: Discharge Patient (ONCE); Ordered 10/11/23 Ordered By: PINEDA MACIEL Activity Restrictions/Additional Instructions: [place] diet, advance as tolerated Activity as tolerated [facility] with [facility] FOR HOME HEALTH- NURSING AND 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 THEY WILL CONTACT YOU TO DISCUSS THESE SERVICES. Medications Augmentin 875 every 8 hours x 10 days Probiotic twice a day Zofran 4 mg take 1 every 6 hours as needed for nausea Sodium chloride take 3 times a day Instructions: Diverticulitis (GEN), Acute Kidney Injury (GEN), Diverticulitis Diet (GEN) Patient Disposition: HOME WITH FAMILY CARE Prescriptions: New Saccharomyces boulardii [Florastor] 250 mg Capsule 250 mg PO BID Qty: 20 0RF sodium chloride 1,000 mg Tablet,Soluble 1,000 mg PO TID Qty: 90 0RF amoxicillin-pot clavulanate 875-125 mg tablet 1 tab PO Q8H 10 Days Qty: 30 0RF ondansetron 4 mg tablet,disintegrating 4 mg PO Q6H PRN (Reason: nausea and vomiting) Qty: 30 0RF Continued citalopram [Celexa] 40 MG tablet 60 mg PO DAILY tamsulosin 0.4 MG capsule 0.4 mg PO DAILY pantoprazole 40 MG tablet,delayed release (DR/EC) 40 mg PO BID furosemide 20 mg tablet 20 mg PO DAILY omega 2-spm-hlm-fish oil [Fish Oil] 300-1,000 mg capsule 1 cap PO DAILY aspirin [Lor Low Dose Aspirin] 81 mg tablet,delayed release (DR/EC) 81 mg PO DAILY levothyroxine [Euthyrox] 112 mcg tablet 112 mcg PO DAILY losartan [Cozaar] 100 mg tablet 50 mg PO BID calcitriol 0.25 mcg capsule 0.25 mcg PO DAILY loratadine [Allerclear] 10 mg tablet 10 mg PO DAILY atorvastatin 80 mg tablet 40 mg PO BEDTIME allopurinol 100 mg tablet 100 mg PO DAILY amlodipine 10 mg tablet 5 mg PO DAILY isosorbide mononitrate 30 mg tablet extended release 24 hr 30 mg PO DAILY hydralazine 100 mg tablet 100 mg PO BID magnesium oxide 400 mg magnesium capsule 400 mg PO DAILY nitroglycerin 0.4 mg tablet, sublingual 0.4 mg sublingual Q5-15M PRN (Reason: chest pain) Rx Instructions: do not exceed 3 doses per episode atenolol 25 mg tablet 12.5 mg PO DAILY Qty: 30 0RF fluticasone propionate 50 mcg/actuation spray,suspension 2 spray INTRANASAL DAILY Patient Comments: USE 2 SPRAY(S) IN EACH NOSTRIL ONCE DAILY Brilinta 90 mg tablet 90 mg PO BID Patient Comments: TAKE 1 TABLET BY MOUTH TWICE DAILY amoxicillin-pot clavulanate 875-125 mg tablet 1 tab PO BID Discontinued amoxicillin-pot clavulanate 875-125 mg tablet 1 tab PO BID Patient Comments: TAKE 1 TABLET BY MOUTH TWICE DAILY FOR 10 DAYS Did you review [place] CHEF TEACHER for ALL controlled substances?: No Discussed opioids are addictive and Narcan is available by prescription or from pharmacy.: No Condition: Stable Referrals: JAZZMINE MACIEL [Primary Care Provider] - Stand Alone Forms: Work/School Release ED
[2023-10-11 12:25] VITALS: BP 124/61; PULSE 123; RESP 16; TEMP 97.1
--- NOTE | 2023-10-13 10:03 | OTDC ---
Date of Evaluation:10/08/23 Diagnosis:[Weakness] Number of visits:[3] Last Date of Service:[10/10/23] Reason For Discharge:[Discharged to home with family] Discharge Summary:[Pt discharge to home.] MICHAELA
== END 2023-10-11 14:35 | disposition home or self-care (01) | DRG 683 ==
LOC: MEDSURG B 02:26 → ED 02:26 → MEDSURG B 09:20
PROVIDERS: ADMIT Hospitalist; ATTEND Nurse Practitioner Family
DX: I77.9 Disorder of arteries and arterioles, unspecified; Z72.0 Tobacco use; N28.9 Disorder of kidney and ureter, unspecified; Z95.5 Presence of coronary angioplasty implant and graft; J01.00 Acute maxillary sinusitis, unspecified; E87.1 Hypo-osmolality and hyponatremia; N30.90 Cystitis, unspecified without hematuria; K57.30 Diverticulosis of large intestine without perforation or abscess without bleeding; Z86.79 Personal history of other diseases of the circulatory system; I25.810 Atherosclerosis of coronary artery bypass graft(s) without angina pectoris; I48.91 Unspecified atrial fibrillation; J44.9 Chronic obstructive pulmonary disease, unspecified; N17.9 Acute kidney failure, unspecified; E78.5 Hyperlipidemia, unspecified; J98.11 Atelectasis; R00.1 Bradycardia, unspecified; R19.4 Change in bowel habit; R79.89 Other specified abnormal findings of blood chemistry; I10 Essential (primary) hypertension; R51.9 Headache, unspecified

== ENCOUNTER 2023-10-14 14:37 | Inpatient (IN) ==
[2023-10-14 14:56] LABS: BASOPHILS % (AUTO) 0.2 % (0.0-3.0); EOSINOPHILS # (AUTO) 0.7 K/ul (0.0-0.7); EOSINOPHILS % (AUTO) 6.5 % (0.0-7.0); HEMATOCRIT 30.1 % (42.0-52.0); IMMATURE GRANULOCYTE # (AUTO) 0.1 (0.0-1.0); IMMATURE GRANULOCYTE % (AUTO) 0.6 % (0.0-5.0); LYMPHOCYTES # (AUTO) 1.1 K/uL (0.60-3.4); LYMPHOCYTES % (AUTO) 9.7 (10.0-50.0); MEAN CORPUSCULAR HEMOGLOBIN 30.1 pg (27.0-31.0); MEAN CORPUSCULAR HGB CONC 33.2 (31.8-35.4); MEAN CORPUSCULAR VOLUME 90.7 fl (80.0-94.0); MONOCYTES # (AUTO) 1.3 K/uL (0.4-2.0); MONOCYTES % (AUTO) 11.4 (0-10); NEUTROPHILS % (AUTO) 71.6 % (42.2-75.2); PLATELET COUNT 202 10^3/uL (140-440); RDW COEFFICIENT OF VARIATION 19.5 % (11.6-14.8); RED BLOOD COUNT 3.32 10^6/ul (4.70-6.10); WHITE BLOOD COUNT 11.18 K/ul (4.2-10.2)
[2023-10-14 15:07] LABS: POTASSIUM 3.73 mmol/L (3.5-5.1)
[2023-10-14 15:08] LABS: ALANINE AMINOTRANSFERASE 16.8 U/L (0-50); ALBUMIN 3.73 g/dL (3.5-5.0); ALKALINE PHOSPHATASE 54.8 U/L (56-119); ASPARTATE AMINO TRANSFERASE 51.8 U/L (17-59); BILIRUBIN,TOTAL 1.04 mg/dL (0.2-1.3); CALCIUM 9.11 mg/dL (8.4-10.2); CARBON DIOXIDE 26.8 mmol/L (22-30.0); CHLORIDE 101.8 mmol/L (98-107); CREATININE 1.61 mg/dL (0.60-1.10); GLUCOSE 105.7 mg/dL (74-106); SODIUM 133.2 mmol/L (134.5-145); TOTAL PROTEIN 7.3 g/dL (6.3-8.2)
[2023-10-14 15:20] LABS: TROPONIN I 0.036 ng/ml (0.0000-0.120)
[2023-10-14 15:20] LABS: SARS COV-2 RNA RAPID NAAT NEGATIVE (NEGATIVE)
[2023-10-14 15:23] LABS: MOLECULAR FLU A NEGATIVE BY NAAT (NEGATIVE); MOLECULAR FLU B NEGATIVE BY NAAT (NEGATIVE); RSV MOLECULAR NEGATIVE BY NAAT (NEGATIVE)
--- NOTE | 2023-10-14 15:25 | DI ---
EXAM: CHEST ONE-VIEW HISTORY: Weakness COMPARISON: Chest radiograph series from 10/07/2023 FINDINGS: There is a questionable small right pneumothorax with pleural separation up to 0.6 cm. The cardiomediastinal silhouette is normal. The pulmonary vasculature is normal. No consolidating infi ltrates are detected. The left costophrenic angle is chronically blunted. IMPRESSION: 1. Small right pneumothorax suggested with 0.6 cm of pleural separation. Unexpected finding. 2. Probable chronic pleural parenchymal scarring of the left costophrenic angle. .
[2023-10-14 16:18] LABS: BILIRUBIN,URINE Negative (NEGATIVE); CLARITY,URINE Clear (CLEAR); COLOR,URINE Light (YELLOW); GLUCOSE, URINE (UA) Negative (NEGATIVE); KETONES,URINE Negative (NEGATIVE); LEUKOCYTE ESTERASE ,URINE Negative (NEGATIVE); NITRITE,URINE Negative (NEGATIVE); PH,URINE 5.5 (5-9); PROTEIN,URINE Trace (NEGATIVE); URINE, BLOOD Negative (NEGATIVE); UROBILINOGEN,URINE 0.2 (0.2)
[2023-10-14 16:23] LABS: SQUAMOUS EPITHELIAL CELL,UR NOT PRESENT (0-5)
[2023-10-14 16:24] LABS: BACTERIA,URINE TRACE (NOT PRESENT); RENAL EPITHELIAL CELLS,URINE 0-2 (NOT PRESENT); TRIPLE PHOSPHATE CRYSTAL,UR 1+ (NOT PRESENT)
--- NOTE | 2023-10-14 17:38 | CT ---
EXAM: CHEST CT WITHOUT CONTRAST HISTORY: Concern for pneumothorax. TECHNIQUE: CT acquisition of the chest from the thoracic inlet to the upper abdomen without IV contra st administration. COMPARISON: Chest radiograph 10/14/2023. FINDINGS: Lines, Tubes, Devices: None. Lung Parenchyma, Pleura, and Airways: Saber sheath configuration of the trachea. Emphysema. No pneum othorax. No acute airspace consolidation. No suspicious mass. Mild dependent atelectasis at the rocael g bases. Calcified granuloma in the left lower lobe. No pleural effusion. Thoracic Inlet, Mediastinum, and Betty: Thyroid gland is normal. Calcified granulomas in the mediastin um and betty. Heart, Vessels, and Pericardium: Extensive atherosclerotic calcifications and heavy Tri-vessel delong ry calcifications. Calcifications of the aortic valve No cardiomegaly. Trace pericardial fluid. Bones and Soft Tissues: No acute osseous abnormality. Mild bilateral gynecomastia. Multilevel degener ative spondylosis. Superior endplate concavity of the T9 vertebral body. Chronic rib fractures. Upper Abdomen: Post cholecystectomy. Calcified granulomas in the spleen and liver. Bilateral simple appearing renal cysts. IMPRESSION: No pneumothorax or acute process in the chest. Finding on chest radiograph was likely a prominent sk in fold. Emphysema. Saber sheath configuration of the trachea consistent with obstructive pulmonary disease. Calcified atherosclerosis with coronary calcifications. All CT scans are performed using dose optimization techniques as appropriate to the performed exam an d include at least one of the following: Automated exposure control, adjustment of the mA and/or kV according t o size, and the use of iterative reconstruction technique.
--- NOTE | 2023-10-14 18:54 | ED.PDOC ---
General ED Provider: Dr. ALE AVENDAÑO DO Chief Complaint: Weakness Stated Complaint: 83-year-old male presents to the ER complaining of generalized weakness. He reports that he was discharged from the hospital on Thursday and says that he feels worse than when he was in the hospital. He denies headache, chest pain, shortness of breath, abdominal pain, diarrhea, constipation, melena or hematochezia. During his recent admission he was treated for acute kidney injury and diverticulitis. He denies any abdominal pain again. Denies fever. Denies sick contacts. He does have a history of aortic stenosis, CAD, COPD, hypothyroidism, diabetes, GA, hypertension. He takes Plavix. He is not on any blood thinners. Denies any palpitations. Time Seen by Provider: 10/14/23 14:39 Mode of Arrival: Walk-In Information Source: Patient and EMT Primary Care Provider: JAZZMINE MACIEL Nursing and Triage Documentation Reviewed and Agree: Yes What is Opioid Naive?: *Opioid Naive implies the patient is not already taking opioids or not chronically receiving opioids on a daily basis. *PRN dosing is not "usually" associated with tolerance. *Patients are at higher risk of over-sedation and aspiration. What is Opioid Tolerant?: *Opioid Tolerance implies less than the expected response to an opioid. *Acquired tolerance is defined by the patient taking 60mg of oral morphine daily (or equianalgesic dose of another opioid) for 1 week or more. *Often associated with chronic pain. *May take more than usual dose to achieve desired pain control. Review of Systems Review Of Systems Constitutional: Reports No symptoms All Other Systems: Reviewed and Negative [facility] Medical History History of aortic stenosis Z86.79 - Personal history of other diseases of the circulatory system (ICD- 10) Bilateral carotid artery disease I77.9 - Disorder of arteries and arterioles, unspecified (ICD-10) Depression F32.A - Depression, unspecified (ICD-10) Anxiety F41.9 - Anxiety disorder, unspecified (ICD-10) COPD (chronic obstructive pulmonary disease) J44.9 - Chronic obstructive pulmonary disease, unspecified (ICD-10) Hyperlipidemia E78.5 - Hyperlipidemia, unspecified (ICD-10) Anemia D64.9 - Anemia, unspecified (ICD-10) Hypothyroidism E03.9 - Hypothyroidism, unspecified (ICD-10) Diabetes E11.9 - Type 2 diabetes mellitus without complications (ICD-10) Myocardial infarct March 2023 I21.9 - Acute myocardial infarction, unspecified (ICD-10) Hypertension I10 - Essential (primary) hypertension (ICD-10) Family History Other No known health problems Social History Smoking and tobacco status: Current every day smoker Tobacco type: cigarettes Smoking packs per day: 1 Smoking cigarettes per day: 20.0 Surgical History History of coronary artery stent placement Z95.5 - Presence of coronary angioplasty implant and graft (ICD-10) Status post spinal disc removal Z98.890 - Other specified postprocedural states (ICD-10) 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 - Acquired absence of other parts of urinary tract (ICD-10) Physical Exam Physical Exam Appearance: Reports Well-appearing, No pain distress and Well-nourished Eyes: Reports KINSEY, EOMI and Conjunctiva clear ENT: Reports Ears normal, Nose normal and Oropharynx normal Neck: Supple Respiratory: Reports Airway patent, Breath sounds clear, Breath sounds equal and Respirations nonlabored Cardiovascular: Reports Pulses normal and Other (Irregularly irregular heart rhythm. Palpated as well as visible on the bedside monitor) Musculoskeletal: Reports Normal strength, ROM intact and No edema Skin: Reports Warm, Dry and Normal color Neurological: Reports Sensation intact and Motor intact Psychiatric: Reports Affect appropriate and Mood appropriate Interpretation EKG Interpretation EKG Interpretation By: ED Physician Time of EKG #1: 14:54 Rate: Normal Rhythm: Other (Suspect atrial fibrillation. Irregularly irregular rhythm. No ST elevation or reciprocal change or acute ischemia) Ectopy: None Thermal: NL ST Segment: Normal Interpretation: New onset atrial fibrillation versus paroxysmal A-fib Course Course 10/14/23 14:51 10/14/23 14:51 Orders, Labs, Meds: Lab Review 10/14/23 10/14/23 10/14/23 14:50 14:51 18:13 WBC 11.18 H RBC 3.32 L Hgb 10.0 L Hct 30.1 L MCV 90.7 MCH 30.1 MCHC 33.2 RDW Coeff of Sri 19.5 H Plt Count 202 Immature Gran % (Auto) 0.6 Neut % (Auto) 71.6 Lymph % (Auto) 9.7 L [place] % (Auto) 11.4 H Eos % (Auto) 6.5 Baso % (Auto) 0.2 Neut # (Auto) 8.0 H Lymph # (Auto) 1.1 [place] # (Auto) 1.3 Eos # (Auto) 0.7 Baso # (Auto) 0.0 Immature Gran # (Auto) 0.1 Sodium 133.2 L Potassium 3.73 Chloride 101.8 Carbon Dioxide 26.8 Anion Gap 8.33 BUN 40.0 H Creatinine 1.61 H Estimated GFR (MDRD) 41.00 BUN/Creatinine Ratio 24.84 Glucose 105.7 Calcium 9.11 Magnesium 1.90 Total Bilirubin 1.04 AST 51.8 ALT 16.8 Alkaline Phosphatase 54.8 L Troponin I 0.036 NT-Pro-B Natriuret Pep 3640 H Total Protein 7.30 Albumin 3.73 Globulin 3.57 Albumin/Globulin Ratio 1.04 Urine Color Light Urine Clarity Clear Urine pH 5.5 Ur Specific [place] 1.015 Urine Protein Trace H Urine Glucose (UA) Negative Urine Ketones Negative Urine Blood Negative Urine Nitrite Negative Urine Bilirubin Negative Urine Urobilinogen 0.2 Ur Leukocyte Esterase Negative Ur Squamous Epith Cells Not present Ur Renal Epithelial Cell 0-2 Triple Phos Crystals 1+ Urine Bacteria Trace Hyaline Casts 2-5 Influ A Molecular Assay Negative by naat Influ B Molecular Assay Negative by naat RSV Antigen Negative by naat SARS CoV-2 RNA Rapid [place]ES[place] Negative Orders Category Date Time Status ADMIT OBSERVATION [PLACE PATIENT OBSERVATION] .TO ADMISSION 10/14/23 18:05 Active MEDSURG (MONITORED BED) EKG-(ED ONLY) Stat CARDIO 10/14/23 14:39 Completed TELEMETRY MONITORING TELE CARE 10/14/23 18:05 Active CBC W/ AUTO DIFF Stat LAB 10/14/23 14:51 Completed CMP [COMPREHENSIVE METABOLIC PANEL] Stat LAB 10/14/23 14:51 Completed COVID [SARS COV-2 RNA RAPID JESICA] Stat LAB 10/14/23 14:50 Completed FLU A & B MOLECULAR [FLU A/B MOLECULAR] Stat LAB 10/14/23 14:50 Completed MAGNESIUM Stat LAB 10/14/23 18:13 Completed NT-PROBNP(ED) Stat LAB 10/14/23 14:51 Completed RSV Stat LAB 10/14/23 14:50 Completed TROPONIN I Stat LAB 10/14/23 14:51 Completed URINALYSIS C & S IF INDICATED Stat LAB 10/14/23 14:50 Completed CHEST, 1V AP ONLY Stat RADS 10/14/23 14:[address] CHEST W/O CONTRAST Stat RADS 10/14/23 16:28 Completed Vital Signs: Temp Pulse Resp BP Pulse Ox 10/14/23 14:39 99.1 F 102 H 20 122/66 98 Discharge Plan Discharge Patient Disposition: ADMITTED INPATIENT Discharge Problem: Atrial fibrillation, new onset, Weakness Did you review [place] INFORMATION ASSURANCE ANALYST for ALL controlled substances?: Not Applicable ED Provider: ALE AVENDAÑO Condition: Stable Physician Progress Note: [] 83-year-old male presents to the ER with generalized weakness and feeling unwell. Afebrile nontoxic doubt sepsis. Will obtain viral swabs given his recent hospitalization. Patient does have multiple comorbidities. Will obtain laboratory workup to include cardiac workup and BNP. He does not exhibit signs of CHF exacerbation. Vital signs otherwise stable. It is noted that his bedside monitor does show a irregularly irregular rhythm. On closer examination of his EKG, it does appear as though this is likely atrial fibrillation or paroxysmal A-fib. He is not anticoagulated. Cardioversion is not indicated at this time as I cannot identify an exact time of the onset of his symptoms and due to the risk of thromboembolic event, I will give a dose of blood thinners in the emergency department and request admission. He was subsequently excepted for admission and we are grateful to the hospital service for this. Recommend echocardiogram and further evaluation with telemetry and may be Holter monitor as discussed with the hospitalist service. Thank you for your help and input on this patient.
[2023-10-14 20:13] VITALS: BMI 19.2
[2023-10-14] MEDS: K-DUR PO ONE (20:35)
[2023-10-14] MEDS: LACTATED RINGERS 1,000 ML IV SCH (21:12)
[2023-10-14] MEDS: MAGNESIUM SULFATE 1 GM/100 ML D5W 1 GM/100 ML BAG IV ONE (21:29)
[2023-10-14] MEDS: LIPITOR PO SCH (21:50)
[2023-10-14] MEDS: APRESOLINE PO SCH (21:51)
[2023-10-14] MEDS: TYLENOL PO PRN (21:51)
[2023-10-14] MEDS: FLORASTOR PO SCH (21:51)
[2023-10-14] MEDS: AUGMENTIN 875-125 MG TAB PO SCH (21:51)
[2023-10-14] MEDS: PROTONIX PO SCH (21:51)
[2023-10-14] MEDS: ELIQUIS PO STA (21:55)
[2023-10-14] MEDS: ELIQUIS ONE (22:39)
[2023-10-15 05:05] LABS: BASOPHILS # (AUTO) 0.1 K/uL (0-0.2); BASOPHILS % (AUTO) 0.5 % (0.0-3.0); EOSINOPHILS % (AUTO) 11.1 % (0.0-7.0); HEMATOCRIT 29.6 % (42.0-52.0); HEMOGLOBIN 9.8 g/dl (14.0-18.0); IMMATURE GRANULOCYTE # (AUTO) 0.1 (0.0-1.0); IMMATURE GRANULOCYTE % (AUTO) 0.5 % (0.0-5.0); LYMPHOCYTES # (AUTO) 1.3 K/uL (0.60-3.4); LYMPHOCYTES % (AUTO) 13.9 (10.0-50.0); MEAN CORPUSCULAR HGB CONC 33.1 (31.8-35.4); MEAN CORPUSCULAR VOLUME 90.5 fl (80.0-94.0); MONOCYTES # (AUTO) 1.1 K/uL (0.4-2.0); MONOCYTES % (AUTO) 12.2 (0-10); NEUTROPHILS # (AUTO) 5.6 K/ul (2.0-6.9); NEUTROPHILS % (AUTO) 61.8 % (42.2-75.2); PLATELET COUNT 193 10^3/uL (140-440); RDW COEFFICIENT OF VARIATION 19.7 % (11.6-14.8); RED BLOOD COUNT 3.27 10^6/ul (4.70-6.10); WHITE BLOOD COUNT 9.12 K/ul (4.2-10.2)
[2023-10-15 05:24] LABS: ALANINE AMINOTRANSFERASE 14.5 U/L (0-50); ALBUMIN 3.35 g/dL (3.5-5.0); ALKALINE PHOSPHATASE 52.2 U/L (56-119); ASPARTATE AMINO TRANSFERASE 40.1 U/L (17-59); BILIRUBIN,TOTAL 1.17 mg/dL (0.2-1.3); BLOOD UREA NITROGEN 35.2 mg/dL (9-20); CALCIUM 8.98 mg/dL (8.4-10.2); CARBON DIOXIDE 26.8 mmol/L (22-30.0); CHLORIDE 102.5 mmol/L (98-107); CREATININE 1.58 mg/dL (0.60-1.10); GLUCOSE 94.4 mg/dL (74-106); POTASSIUM 4.03 mmol/L (3.5-5.1); SODIUM 133.5 mmol/L (134.5-145); TOTAL PROTEIN 6.63 g/dL (6.3-8.2)
[2023-10-15] MEDS: SODIUM CHLORIDE PO SCH (05:37)
[2023-10-15] MEDS: SYNTHROID PO SCH (05:38)
[2023-10-15] MEDS: TICAGRELOR 90 MG PO SCH (07:44)
[2023-10-15] MEDS ORDERED: CALCITRIOL PO SCH (09:00)
[2023-10-15] MEDS: NORVASC PO SCH (09:18)
[2023-10-15] MEDS: CLARITIN PO SCH (09:19)
[2023-10-15] MEDS: ZYLOPRIM PO SCH (09:19)
[2023-10-15] MEDS: ASPIRIN EC PO SCH (09:19)
[2023-10-15] MEDS: TENORMIN PO SCH (09:19)
[2023-10-15] MEDS: CELEXA PO SCH (09:20)
[2023-10-15] MEDS: PROTONIX PO SCH (09:20)
[2023-10-15] MEDS: FLOMAX PO SCH (09:20)
[2023-10-15] MEDS: IMDUR PO SCH (09:20)
[2023-10-15] MEDS: CALCITRIOL PO SCH (09:28)
[2023-10-15] MEDS: LACTATED RINGERS 1,000 ML IV SCH (10:17)
--- NOTE | 2023-10-15 10:53 | PCM ---
Date of Service Date Seen by Provider: 10/15/23 Time Seen by Provider: 08:20 Admit Day/Time Admission Date: 10/14/23 Admission Time: 18:05 Reason for Admission Chief Complaint: WEAKNESS, R/O A-FIB Hospital Provider Hospital Provider: GL[facility] GRID[facility]-C, [facility] Physician Primary Care Physician: JAZZMINE MACIEL History of Present Illness History of Present Illness: Patient is an 83 year old male from home with pmhx of COPD, CAD, hypertension, hypothyroidism, GERD, BPH, hyperlipidemia, gout who presented to the ER for weakness. Patient has had multiple ER visits lately between [place] [facility]. He was admitted last week with diverticulitis. He states his abd pain and diarrhea has resolved, he just feels very weak. He states standing up yesterday he felt "weird". He has a hard time characterizing it but states it's not how he normally feels. He felt unsteady. He has not fallen. In the ER work up rather unremarkable. Pt noted to have an irregular rhythm on tele. ERP felt patient was having paroxysmal a fib, which would be a new diagnosis for him. He lives with his son but states he feels he is becoming a burden to him. They have started the process of looking at nursing homes. On my evaluation this morning patient states he's feeling somewhat better today but not at his baseline. Orthostatic vitals were checked and patient dropped 40 points systolic. Case Discussed With Case Discussed With: Patient's case was discussed with the ER Physicians, Dr. Hamilton. [facility] Medical History History of aortic stenosis Z86.79 - Personal history of other diseases of the circulatory system (ICD- 10) Bilateral carotid artery disease I77.9 - Disorder of arteries and arterioles, unspecified (ICD-10) Depression F32.A - Depression, unspecified (ICD-10) Anxiety F41.9 - Anxiety disorder, unspecified (ICD-10) COPD (chronic obstructive pulmonary disease) J44.9 - Chronic obstructive pulmonary disease, unspecified (ICD-10) Hyperlipidemia E78.5 - Hyperlipidemia, unspecified (ICD-10) Anemia D64.9 - Anemia, unspecified (ICD-10) Hypothyroidism E03.9 - Hypothyroidism, unspecified (ICD-10) Diabetes E11.9 - Type 2 diabetes mellitus without complications (ICD-10) Myocardial infarct March 2023 I21.9 - Acute myocardial infarction, unspecified (ICD-10) Hypertension I10 - Essential (primary) hypertension (ICD-10) Surgical History History of coronary artery stent placement Z95.5 - Presence of coronary angioplasty implant and graft (ICD-10) Status post spinal disc removal Z98.890 - Other specified postprocedural states (ICD-10) 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 - Acquired absence of other parts of urinary tract (ICD-10) Family History Other No known health problems Social History Smoking and tobacco status: Current every day smoker Tobacco type: cigarettes Smoking packs per day: 1 Smoking cigarettes per day: 20.0 Quit status: considering quitting Substance use type: does not use Special elio needs: No Agree to transfusion: Yes Adopted: No Caregiver/support person: Yes Foster care: No Household members: children Housing: house Marital status: W / Lives independently: Yes Daycare: no daycare Number of children: 1 Financial difficulty paying for basics: not very hard service: Yes MCFP: No Current occupational status: retired History of recent travel: No Do you think of yourself as: straight/heterosexual Current gender identity: male Seatbelt use: always Helmet use: Yes Drives intoxicated or rides with intoxicated service car driver: No Allergies Allergies Allergy/AdvReac Type Severity Reaction Status Date / Time No Known Allergies Allergy Verified 10/14/23 14:59 Current Medications Home Medications citalopram 40 mg tablet (Celexa) 60 mg PO DAILY 10/30/17 [History Confirmed 10/14/23 Last Taken Unknown] pantoprazole 40 mg tablet,delayed release 40 mg PO BID 10/30/17 [History Confirmed 10/14/23 Last Taken Unknown] tamsulosin 0.4 mg capsule 0.4 mg PO DAILY 10/30/17 [History Confirmed 10/14/23 Last Taken Unknown] allopurinol 100 mg tablet 100 mg PO DAILY 06/25/23 [History Confirmed 10/14/23 Last Taken Unknown] amlodipine 10 mg tablet 5 mg PO DAILY 06/25/23 [History Confirmed 10/14/23 Last Taken Unknown] aspirin 81 mg tablet,delayed release (Lor Low Dose Aspirin) 81 mg PO DAILY 06/25/23 [History Confirmed 10/14/23 Last Taken Unknown] atorvastatin 80 mg tablet 40 mg PO BEDTIME 06/25/23 [History Confirmed 10/14/23 Last Taken Unknown] calcitriol 0.25 mcg capsule 0.25 mcg PO DAILY 06/25/23 [History Confirmed 10/14/23 Last Taken Unknown] hydralazine 100 mg tablet 100 mg PO BID 06/25/23 [History Confirmed 10/14/23 Last Taken Unknown] isosorbide mononitrate 30 mg tablet,extended release 24 hr 30 mg PO DAILY 06/25/23 [History Confirmed 10/14/23 Last Taken Unknown] levothyroxine 112 mcg tablet (Euthyrox) 112 mcg PO DAILY 06/25/23 [History Confirmed 10/14/23 Last Taken Unknown] loratadine 10 mg tablet (Allerclear) 10 mg PO DAILY 06/25/23 [History Confirmed 10/14/23 Last Taken Unknown] losartan 100 mg tablet (Cozaar) 50 mg PO BID 06/25/23 [History Confirmed 10/14/23 Last Taken Unknown] magnesium oxide 400 mg PO DAILY 06/25/23 [History Confirmed 10/14/23 Last Taken Unknown] nitroglycerin 0.4 mg sublingual tablet 0.4 mg sublingual Q5-15M PRN chest pain 06/25/23 [History Confirmed 10/14/23 Last Taken Unknown] omega 0-dra-xoo-fish oil 300 mg-1,000 mg capsule (Fish Oil) 1 cap PO DAILY 06/25/23 [History Confirmed 10/14/23 Last Taken Unknown] atenolol 25 mg tablet 12.5 mg (1/2 x 25 mg) PO DAILY #30 tabs 06/27/23 [Rx Confirmed 10/14/23 Last Taken Unknown] furosemide 20 mg tablet 20 mg PO DAILY 08/27/23 [History Confirmed 10/14/23 Last Taken Unknown] fluticasone propionate 50 mcg/actuation nasal spray,suspension 2 spray int ranasal DAILY 10/07/23 [History Confirmed 10/14/23 Last Taken Unknown] ticagrelor 90 mg tablet (Brilinta) 90 mg PO BID 10/07/23 [History Confirmed 10/14/23 Last Taken Unknown] amoxicillin 875 mg-potassium clavulanate 125 mg tablet 1 tab PO BID 10/08/23 [History Confirmed 10/14/23 Last Taken Unknown] Saccharomyces boulardii 250 mg capsule (Florastor) 250 mg PO BID #20 caps 10/11/23 [Rx Confirmed 10/14/23 Last Taken Unknown] amoxicillin 875 mg-potassium clavulanate 125 mg tablet 1 tab PO Q8H 10 days #30 tabs 10/11/23 [Rx Confirmed 10/14/23 Last Taken Unknown] ondansetron 4 mg disintegrating tablet 4 mg PO Q6H PRN nausea and vomiting #30 tabs 10/11/23 [Rx Confirmed 10/14/23 Last Taken Unknown] sodium chloride 1,000 mg soluble tablet 1,000 mg PO TID #90 tabs 10/11/23 [Rx Confirmed 10/14/23 Last Taken Unknown] Home Acetaminophen (Acetaminophen 325 Mg Tablet) 650 mg PO Q4H PRN PRN Reason: Mild Pain Last Admin: 10/14/23 21:51 Dose: 650 mg Allopurinol (Allopurinol 100 Mg Tablet) 100 mg PO DAILY [facility] Last Admin: 10/15/23 09:19 Dose: 100 mg Amlodipine Besylate (Amlodipine Besylate 5 Mg Tablet) 5 mg PO DAILY [facility] Last Admin: 10/15/23 09:18 Dose: 5 mg Amoxicillin/Clavulanate Potassium (Amoxicillin/Potassium Clav 875/125 Mg Tablet) 1 tab PO Q8HR [facility] Stop: 10/17/23 20:59 Aspirin (Aspirin 81 Mg Tablet.) 81 mg PO DAILYWM2 [facility] Last Admin: 10/15/23 09:19 Dose: 81 mg Atenolol (Atenolol 25 Mg Tablet) 12.5 mg PO DAILY [facility] Last Admin: 10/15/23 09:19 Dose: 12.5 mg Atorvastatin Calcium (Atorvastatin Calcium 20 Mg Tablet) 40 mg PO BEDTIME [facility] Last Admin: 10/14/23 21:50 Dose: 40 mg Calcitriol (Calcitriol 0.25 Mcg Capsule) 0.25 mcg PO DAILY [facility] Last Admin: 10/15/23 09:28 Dose: Not Given Citalopram Hydrobromide (Citalopram Hydrobromide 20 Mg Tablet) 60 mg PO DAILY [facility] Last Admin: 10/15/23 09:20 Dose: 60 mg Hydralazine HCl (Hydralazine Hcl 50 Mg Tablet) 100 mg PO BID [facility] Last Admin: 10/15/23 09:19 Dose: 100 mg Lactated Ringer's (Lactated Ringers) 1,000 mls @ 125 mls/hr IV .Q8H [facility] Last Admin: 10/15/23 10:17 Dose: 125 mls/hr Isosorbide Mononitrate (Isosorbide Mononitrate 30 Mg Tab.Er.24h) 30 mg PO DAILY [facility] Last Admin: 10/15/23 09:20 Dose: 30 mg Levothyroxine Sodium (Levothyroxine Sodium 112 Mcg Tablet) 112 mcg PO 0630 [facility] Last Admin: 10/15/23 05:38 Dose: 112 mcg Loratadine (Loratadine 10 Mg Tablet) 10 mg PO DAILY [facility] Last Admin: 10/15/23 09:19 Dose: 10 mg Non-Formulary Medication (Ticagrelor [Brilinta]) 90 mg PO BID [facility] Last Admin: 10/15/23 09:29 Dose: Not Given Ondansetron HCl (Ondansetron Hcl/Pf 4 Mg/2 Ml Sdv) 4 mg IVP Q6H PRN PRN Reason: Nausea / Vomiting Pantoprazole Sodium (Pantoprazole Sodium 40 Mg Tablet.Dr) 40 mg PO BIDAC2 [facility] Last Admin: 10/15/23 09:20 Dose: 40 mg Saccharomyces Boulardii (Saccharomyces Boulardii 250 Mg Capsule) 250 mg PO BID [facility] Last Admin: 10/15/23 09:19 Dose: 250 mg Sodium Chloride (Sodium Chloride 1 Gm Tablet) 1 gm PO TIDAC2 [facility] Last Admin: 10/15/23 10:39 Dose: 1 gm Tamsulosin HCl (Tamsulosin Hcl 0.4 Mg Cap.Er.24h) 0.4 mg PO DAILY [facility] Last Admin: 10/15/23 09:20 Dose: 0.4 mg Discontinued Medications Amoxicillin/Clavulanate Potassium (Amoxicillin/Potassium Clav 875/125 Mg Tablet) 1 tab PO Q8H [facility] Stop: 10/17/23 20:59 Last Admin: 10/15/23 05:37 Dose: 1 tab Apixaban (Apixaban 5 Mg Tab) 10 mg PO ONCE STA Stop: 10/14/23 18:55 Last Admin: 10/14/23 21:55 Dose: 10 mg Calcitriol (Calcitriol 0.25 Mcg Capsule) 0.25 mcg PO DAILY [facility] Magnesium Sulfate/Dextrose (Magnesium Sulfate 1 Gm/100 Ml D5w) 1 gm in 100 mls @ 100 mls/hr IV ONCE ONE Stop: 10/14/23 21:29 Last Admin: 10/14/23 21:29 Dose: 100 mls/hr Lactated Ringer's (Lactated Ringers) 1,000 mls @ 75 mls/hr IV .[id number] [facility] Last Infusion: 10/15/23 10:18 Dose: Infused Pantoprazole Sodium (Pantoprazole Sodium 40 Mg Tablet.Dr) 40 mg PO BID [facility] Last Admin: 10/14/23 21:51 Dose: 40 mg Potassium Chloride (Potassium Chloride 20 Meq Tab) 20 meq PO ONCE ONE Stop: 10/14/23 20:31 Last Admin: 10/14/23 20:35 Dose: 20 meq Opioid Naive vs. Tolerant Does Patient Take Opioids?: No Is Patient Opioid Naive?: Yes What is Opioid Naive?: *Opioid Naive implies the patient is not already taking opioids or not chronically receiving opioids on a daily basis. *PRN dosing is not "usually" associated with tolerance. *Patients are at higher risk of over-sedation and aspiration. Is Patient Opioid Tolerant?: No What is Opioid Tolerant?: *Opioid Tolerance implies less than the expected response to an opioid. *Acquired tolerance is defined by the patient taking 60mg of oral morphine daily (or equianalgesic dose of another opioid) for 1 week or more. *Often associated with chronic pain. *May take more than usual dose to achieve desired pain control. Review of Systems Constitutional: Reports Weakness Head: Reports Normocephalic and Atraumatic Cardiovascular: Denies Chest pain, Chest Pressure or Edema Respiratory: Denies Cough or Shortness of air Gastrointestinal: Denies Nausea, Vomiting, Diarrhea, Abdominal pain or Melena Genitourinary: Denies Dysuria or Hematuria Dermatologic: Denies Rashes Neurological: Reports Dizziness, Weakness and Problems with walking Physical examination Most Recent Vital Signs: Most Recent Vital Signs Temperature 97.4 F L 10/15/23 09:27 Temperature Source Tympanic 10/15/23 09:27 Temperature Source Infrared 10/14/23 14:39 Pulse Rate 78 10/15/23 09:40 Respiratory Rate 18 10/15/23 09:27 Blood Pressure 120/66 10/15/23 09:40 Blood Pressure Mean 90 10/15/23 09:27 Blood Pressure Right Arm 152/77 10/14/23 19:48 Blood Pressure Location Right Arm 10/15/23 09:40 Blood Pressure Position Supine 10/15/23 09:40 O2 Sat by Pulse Oximetry 95 10/15/23 09:27 Oxygen Delivery Method Room Air 10/15/23 10:00 Height 6 ft 1 in 10/14/23 19:48 Weight 146 lb 10/14/23 19:48 Telemetry Type Remote Telemetry 10/15/23 07:00 Telemetry Monitoring Continues 10/15/23 07:00 Irregular Telemetry Rate (Approximate) 90-100 BPM 10/14/23 20:15 Telemetry Heart Rate 77 10/15/23 07:00 Telemetry SPO2 94 10/09/23 07:00 EKG SC Interval 0.17 10/15/23 07:00 EKG QRS Interval 0.04 L 10/15/23 07:00 Telemetry Strip Reading SR with PACs 10/15/23 07:00 Appearance: Positive Well-appearing, Well-nourished, No Apparent Distress and Alert and Oriented x3 Skin: Positive [place], Warm, Good Turgor and Good Color; Negative Rashes HEENT: Positive Normocephalic and Atraumatic Neck: Positive Supple and Midline Trachea Chest/Lungs: Positive Clear to Auscultation Bilaterally; Negative Rales, Rhonci or Wheezes Heart: Positive Irregular Rhythm GI/: Positive Soft, Nontender, Bowel Sounds Normal and No Distention Extremities: Negative Edema Neurological: Positive Cranial Nerves Intact, Alert, Oriented and Other (+generalized weakness but no focal deficits noted. ) Psychiatric: Positive Oriented x4, Appropriate Mood and Appropriate Affect Labs This Visit Labs This Visit: Labs This Visit 10/14/23 10/14/23 10/14/23 14:50 14:51 18:13 WBC 11.18 H RBC 3.32 L Hgb 10.0 L Hct 30.1 L MCV 90.7 MCH 30.1 MCHC 33.2 RDW Coeff of Sri 19.5 H Plt Count 202 Immature Gran % (Auto) 0.6 Neut % (Auto) 71.6 Lymph % (Auto) 9.7 L [place] % (Auto) 11.4 H Eos % (Auto) 6.5 Baso % (Auto) 0.2 Neut # (Auto) 8.0 H Lymph # (Auto) 1.1 [place] # (Auto) 1.3 Eos # (Auto) 0.7 Baso # (Auto) 0.0 Immature Gran # (Auto) 0.1 Sodium 133.2 L Potassium 3.73 Chloride 101.8 Carbon Dioxide 26.8 Anion Gap 8.33 BUN 40.0 H Creatinine 1.61 H Estimated GFR (MDRD) 41.00 BUN/Creatinine Ratio 24.84 Glucose 105.7 Calcium 9.11 Magnesium 1.90 Total Bilirubin 1.04 AST 51.8 ALT 16.8 Alkaline Phosphatase 54.8 L Troponin I 0.036 NT-Pro-B Natriuret Pep 3640 H Total Protein 7.30 Albumin 3.73 Globulin 3.57 Albumin/Globulin Ratio 1.04 Urine Color Light Urine Clarity Clear Urine pH 5.5 Ur Specific [place] 1.015 Urine Protein Trace H Urine Glucose (UA) Negative Urine Ketones Negative Urine Blood Negative Urine Nitrite Negative Urine Bilirubin Negative Urine Urobilinogen 0.2 Ur Leukocyte Esterase Negative Ur Squamous Epith Cells Not present Ur Renal Epithelial Cell 0-2 Triple Phos Crystals 1+ Urine Bacteria Trace Hyaline Casts 2-5 Influ A Molecular Assay Negative by naat Influ B Molecular Assay Negative by naat RSV Antigen Negative by naat SARS CoV-2 RNA Rapid JESICA Negative 10/15/23 04:58 WBC 9.12 RBC 3.27 L Hgb 9.8 L Hct 29.6 L MCV 90.5 MCH 30.0 MCHC 33.1 RDW Coeff of Sri 19.7 H Plt Count 193 Immature Gran % (Auto) 0.5 Neut % (Auto) 61.8 Lymph % (Auto) 13.9 [place] % (Auto) 12.2 H Eos % (Auto) 11.1 H Baso % (Auto) 0.5 Neut # (Auto) 5.6 Lymph # (Auto) 1.3 [place] # (Auto) 1.1 Eos # (Auto) 1.0 H Baso # (Auto) 0.1 Immature Gran # (Auto) 0.1 Sodium 133.5 L Potassium 4.03 Chloride 102.5 Carbon Dioxide 26.8 Anion Gap 8.23 BUN 35.2 H Creatinine 1.58 H Estimated GFR (MDRD) 42.00 BUN/Creatinine Ratio 22.27 Glucose 94.4 Calcium 8.98 Magnesium Total Bilirubin 1.17 AST 40.1 ALT 14.5 Alkaline Phosphatase 52.2 L Troponin I NT-Pro-B Natriuret Pep Total Protein 6.63 Albumin 3.35 L Globulin 3.28 Albumin/Globulin Ratio 1.02 Urine Color Urine Clarity Urine pH Ur Specific [place] Urine Protein Urine Glucose (UA) Urine Ketones Urine Blood Urine Nitrite Urine Bilirubin Urine Urobilinogen Ur Leukocyte Esterase Ur Squamous Epith Cells Ur Renal Epithelial Cell Triple Phos Crystals Urine Bacteria Hyaline Casts Influ A Molecular Assay Influ B Molecular Assay RSV Antigen SARS CoV-2 RNA Rapid JESICA Imaging Imaging: EXAM: CHEST ONE-VIEW HISTORY: Weakness COMPARISON: Chest radiograph series from 10/07/2023 FINDINGS: There is a questionable small right pneumothorax with pleural separation up to 0.6 cm. The cardiomediastinal silhouette is normal. The pulmonary vasculature is normal. No consolidating infiltrates are detected. The left costophrenic angle is chronically blunted. IMPRESSION: 1. Small right pneumothorax suggested with 0.6 cm of pleural separation. Unexpected finding. 2. Probable chronic pleural parenchymal scarring of the left costophrenic angle. EXAM: CHEST CT WITHOUT CONTRAST HISTORY: Concern for pneumothorax. TECHNIQUE: CT acquisition of the chest from the thoracic inlet to the upper abdomen without IV contrast administration. COMPARISON: Chest radiograph 10/14/2023 FINDINGS: Lines, Tubes, Devices: None. Lung Parenchyma, Pleura, and Airways: Saber sheath configuration of the trachea. Emphysema. No pneumothorax. No acute airspace consolidation. No suspicious mass. Mild dependent atelectasis at the lung bases. Calcified granuloma in the left lower lobe. No pleural effusion. Thoracic Inlet, Mediastinum, and Betty: Thyroid gland is normal. Calcified granulomas in the mediastinum and betty. Heart, Vessels, and Pericardium: Extensive atherosclerotic calcifications and heavy Tri-vessel coronary calcifications. Calcifications of the aortic valve No cardiomegaly. Trace pericardial fluid. Bones and Soft Tissues: No acute osseous abnormality. Mild bilateral gynecomastia. Multilevel degenerative spondylosis. Superior endplate concavity of the T9 vertebral body. Chronic rib fractures. Upper Abdomen: Post cholecystectomy. Calcified granulomas in the spleen and liver. Bilateral simple appearing renal cysts. IMPRESSION: No pneumothorax or acute process in the chest. Finding on chest radiograph was likely a prominent skin fold. Emphysema. Saber sheath configuration of the trachea consistent with obstructive pulmonary disease. Calcified atherosclerosis with coronary calcifications. Review Statement Review Statement: I have independently reviewed and interpreted the labs/EKGs/imaging that were ordered by the ER provider. I have reviewed all outside records that are available currently in our EMR including imaging/notes/labs from previous visits. Plan Plan: 1. Orthostatic hypotension - Patient dropped from 137 to 91 systolic with standing. Continue hydration. No specific culprits on medications except flomax. Will hold. Pts legs too small for denzel hose. Fall precautions. 2. CAD - Pt following Dr. Ashby at [facility]. 3. Anemia, chronic - Per [place] pcp note patient gets darbepoetin shots 60 mcg q4 weeks and follows with heme/onc outpatient. 4. Hypertension - Cont home meds 5. Hyperlipidemia - Cont home meds 6. Gout - Cont home meds 7. Hypothyroidism - Continue home meds 8. GERD - Cont home meds 9. BPH - Hold flomax 10. Weakness - PT/OT consult 11. Arrhythmia - Pt has an irregular rhyhm but p waves are present, doesn't appear to be a fib. Reviewed by Dr. Jacy Bay as well. Cont tele. Check echo. Consider discharge w/ holter. DVT Prophylaxis: Ambulation Time Spent: Greater than 80 minutes spent with patient, 50% of the time spent with this patient was devoted to counseling and coordination of care. [facility] minutes spent discussing advance care planning. DNR Disposition: Pt would like to go to [facility] [place] [facility] as it is getting too difficult to care for himself at home. CM working on that. Once orthostasis improves, he will be medically stable for dc. Admit to: Obs Discussed Plan of Care with Dr. Jacy Bay. Medications Medication Orders: Medications Ordered Category Date Time Status Acetaminophen [Tylenol] Meds 10/14/23 20:30 Active 650 mg PO Q4H PRN Allopurinol [Zyloprim] Meds 10/15/23 09:00 Active 100 mg PO DAILY Amlodipine Besylate [Norvasc] Meds 10/15/23 09:00 Active 5 mg PO DAILY Amoxicillin/Potassium Clav [Augmentin 875-125 mg Tab] Meds 10/15/23 13:00 Active 1 tab PO Q8HR Aspirin [Aspirin EC] Meds 10/15/23 07:30 Active 81 mg PO DAILYWM2 Atenolol [Tenormin] Meds 10/15/23 09:00 Active 12.5 mg PO DAILY Atorvastatin Calcium [Lipitor] Meds 10/14/23 21:00 Active 40 mg PO BEDTIME Calcitriol Meds 10/15/23 09:00 Active 0.25 mcg PO DAILY Citalopram Hydrobromide [Celexa] Meds 10/15/23 09:00 Active 60 mg PO DAILY Hydralazine HCl [Apresoline] Meds 10/14/23 21:00 Active 100 mg PO BID Isosorbide Mononitrate [Imdur] Meds 10/15/23 09:00 Active 30 mg PO DAILY Levothyroxine Sodium [Synthroid] Meds 10/15/23 06:30 Active 112 mcg PO 0630 Loratadine [Claritin] Meds 10/15/23 09:00 Active 10 mg PO DAILY Ondansetron HCl/Pf [Zofran 4 mg/2 ml] Meds 10/14/23 20:30 Active 4 mg IVP Q6H PRN Pantoprazole Sodium [Protonix] Meds 10/15/23 07:30 Active 40 mg PO BIDAC2 Ringers Lactated Solution [Lactated Ringers] 1,000 ml Meds 10/15/23 10:08 Active IV 125 mls/hr Saccharomyces Boulardii [Florastor] Meds 10/14/23 21:00 Active 250 mg PO BID Sodium Chloride Meds 10/15/23 06:00 Active 1 gm PO TIDAC2 Tamsulosin HCl [Flomax] Meds 10/15/23 09:00 Active 0.4 mg PO DAILY ticagrelor [Brilinta] Meds 10/14/23 21:00 Active 90 mg PO BID
--- NOTE | 2023-10-15 11:51 | RS.PTINEVL ---
Subjective Patient information Date of Evaluation: 10/15/23 Date of Arrival on Unit: 10/14/23 Admitted From:: Home Diagnosis: Afib, weakness Usual Living Arrangement: With Others Living Arrangement Comments: Lives with son, son is there with him throughout the day Home Environment: House, Stairs (few) and Rail Medical History: Hypertension, COPD, Diabetes and Arthritis Medical History Comments:: hypothyroidism, CAD, aortic stenosis, Afib, [place] LATEX ALLERGY?: No Surgical History: Lumbar Spine Surgical History Comments:: coronary stent, cystectomy Medications: see chart Subjective Information/ Patient Comments:: pt states he was weaker at home and thinks he needs to go to shelter for rehab for a while. Level of function Prior to this admission, the patient could do the following:: Independent Selfcare, Independent ADL's and Independent Ambulation Current Level of Function: Partially Dependent Current Equipment Used at Home: straight cane, quad cane Interventions Objective Patient Orientation: Person, Place and Situation Current Interventions: IV's and Telemetry Observation: pt is pleasant and agreeable to treatment Range of Motion ROM Right Upper Extremity AROM: WFL's Left Upper Extremity AROM: WFL's Right Lower Extremity AROM: WFL's Left Lower Extremity AROM: WFL's Muscle Strength Muscle Strength Right Upper Extremity: Mild Weakness (grossly 4/5) Left Upper Extremity: Mild Weakness (grossly 4/5) Right Lower Extremity: Mild Weakness (hip flex 4/5, knee flex/ext 4+/5, ankle DF/PF 4/5) Left Lower Extremity: Mild Weakness (hip flex 4/5, knee flex/ext 4+/5, ankle DF/PF 4/5) Sensation Sensation Right Upper Extremity: Intact/Normal Left Upper Extremity: Intact/Normal Right Lower Extremity: Intact/Normal Palpation Palpation Findings: None/Normal Coordination Tests Bilateral: Finger to Nose: Normal/Intact Heel to [place]: Normal/Intact Toe Tapping: Normal/Intact Balance Sitting Balance and Reactions Static Sitting Balance: Good Dynamic Sitting Balance: Fair (fair+) Standing Balance and Reactions Static Standing Balance: Fair (fair-) Dynamic Standing Balance: Poor Comments Balance Assessment Comments: Tinetti balance score: 17/28 consistent for high fall risk Functional Mobility Bed Mobility Rolling R/L: Independent Supine to Sit: Supervision Sit to Supine: Supervision Transfers Sit to Stand: Supervision and CGA Stand to Sit: Supervision and CGA Safety Awareness Safety Awareness: Fair WALDO INDEX SCORE: n/a Ambulation Ambulation Assistive Device Used: Small Base Quad Cane Orthotic/Prosthetic Device: No Distance: 115ft Assistance needed with Ambulation: CGA Gait Deviations: Forward posture, Short stride and Deviates from path Ambulation Comments: Feel pt would be safer with rwx. pt agreeable after he walked with cane that rwx would be better. Will try this pm. Factors Affecting Ambulation: Decreased Balance, Weakness and Limited Endurance Treatment time Units charged Gait trainin Time with patient Length of Evaluation: 18 Total treatment time: 31 Patient Education Education Patient Education: Activity Modification and Education of Plan of Care Teaching Recipient: Patient Teaching Methods: Discussion (discussion regarding POC) Assessment Assessment Problem List:: Decreased level of function, Requires training/education, Decreased safety/Risk of falls and Weakness Rehab Potential: Good Further Therapy Indicated?: Yes Candidate for Swing Bed for Therapy Services?: pt is planning to dc to LTC Evaluation Complexity: HISTORY: Medium, EXAM OF BODY SYSTEMS: Medium, CLINICAL PRESENTATION: Medium and CLINICAL DECISION MAKING: Medium Patient's Goal(s): Get a bit stronger Short Term Goals GOAL #1: Transfer sit to/from stand SBA Goal to be met by: 10/16/23 GOAL #2: Amb with rwx 140ft with SBA to CGA Goal to be met by: 10/16/23 GOAL #3: Improve BLE strength 4+/5 Goal to be met by: 10/17/23 GOAL #4: Improve dyn stand balance with tinetti score of 19/28 Goal to be met by: 10/17/23 GOAL #5: . Retirement Goals GOAL #1: pt transfer sup to/from sit to/from stand independently Goal to be met by: 10/19/23 GOAL #2: pt amb functional household distances with AAD SBA x 1 Goal to be met by: 10/19/23 GOAL #3: Improve dyn stand balance with tinetti score of 21/28 Goal to be met by: 10/19/23 Plan Plan of Care: Therapeutic EX and Therapeutic Activity Other:: gait training Frequency of Treatment: 1-2 X day, as tolerated Duration of Treatment: 4 days Anticipated [facility] Treatment Diagnosis (ICD 10 Codes): impaired balance R 26.81 gait difficulty R 26.2 weakness M62.81 Has the Physician been added for Co-signature?: Yes
[2023-10-15] MEDS: AUGMENTIN 875-125 MG TAB PO SCH (12:03)
--- NOTE | 2023-10-15 13:51 | RS.OTINEVL ---
Subjective Patient information Date of Evaluation: 10/15/23 Date of Arrival on Unit: 10/14/23 Admitted From:: Home Diagnosis: Weakness, Afib PRECAUTIONS: Fall risk, Usual Living Arrangement: With Others Living Arrangement Comments: Lives with son, son is there with him throughout the day Home Environment: House, Stairs (few) and Rail Medical History: Hypertension, COPD, Diabetes and Arthritis Medical History Comments:: hypothyroidism, CAD, aortic stenosis, Afib, [place], Gout, Diverticulitis LATEX ALLERGY?: No Surgical History: Lumbar Spine Surgical History Comments:: coronary stent, cystectomy Medications: see chart Subjective Information/ Patient Comments:: "I can get over there almost by myself." Level of function Prior to this admission, the patient could do the following:: Independent Selfcare, Independent ADL's, Independent Ambulation and Drive Abilities prior to this admission: Pt reported he drives because his son lost his license. Current Level of Function: Partially Dependent Comments: Pt is unsteady on his feet. Current Equipment Used at Home: straight cane, quad cane Interventions Objective Patient Orientation: Person, Place and Situation Observation: Pt appears weak and unsteady during transfers and ambulation. Interventions ROM Right Upper Extremity AROM: WFL's Left Upper Extremity AROM: WFL's Strength Right Upper Extremity: Mild Weakness Left Upper Extremity: Mild Weakness Sensation Right Upper Extremity: Intact/Normal Left Upper Extremity: Intact/Normal Balance Sitting Balance Static Sitting Balance: Good Dynamic Sitting Balance: Good Standing Balance Static Standing Balance: Poor Dynamic Standing Balance: Poor ADL Skills Self Feeding Self Feeding: Independent Grooming Grooming: [facility] Grooming Set-up: Standing Bathing Bathing UE: Independent Bathing LE: Independent Bathing Set-up: Shower Dressing Dressing UE: Independent Dressing LE: CGA Toilet Management Toilet Hygiene: Independent Toilet Clothing Management: [facility] Functional Mobility Bed Mobility Sit to Supine: Independent Transfers Sit to Stand: [facility] Stand to Sit: [facility] Stand Pivot Transfers: CGA Ambulation Weight Bearing Status: FWB Assistive Device Used: Rolling Walker Safety Awareness Safety Awareness: Fair WALDO INDEX SCORE: . Additional Treatment Performed Time with patient Length of Evaluation: 18 Total treatment time: 18 Activities Do you enjoy playing games?: Yes Would you be interested in leaving your room for activities?: Yes Would you enjoy group activities?: No Do you have difficulty with your vision?: Yes Patient Interests:: Watching Television and Visiting/Socializing Patient Education Patient Education: Education of diagnosis, Home Exercise Program and Education of Plan of Care Teaching Recipient: Patient Teaching Methods: Discussion and Demonstration Assessment Problem List:: Decreased level of function, Requires training/education, Decreased safety/Risk of falls and Weakness Rehab Potential: Good Further Therapy Indicated?: Yes Evaluation Complexity: HISTORY: Medium, EXAM OF BODY SYSTEMS: Medium and CLINICAL DECISION MAKING: Medium Patient's Goal(s): Pt reports he is going to a group home when he is discharged. Short Term Goals Goals GOAL 1: Pt to be I with LE dressing. Goal to be met by: 10/09/23 GOAL 2: Pt to be able to stand at the sink and brush his teeth SBA. Goal to be met by: 10/19/23 Progress Towards Goal:: 50% GOAL 3: Pt to be I with toilet management. Goal to be met by: 10/19/23 GOAL 4: Pt to be CGA with toilet transfers. Goal to be met by: 10/19/23 [facility] Goals GOAL 1: Pt to be I with ADLs. Goal to be met by: 10/21/23 GOAL 2: Pt to be I with toilet transfers. Goal to be met by: 10/21/23 Plan Plan of Care: Therapeutic EX, Therapeutic Activity and Self-Care/Home Management Frequency of Treatment: 1-2 X day, as tolerated Duration of Treatment: 6 days Anticipated Discharge Destination: [facility] Treatment Diagnosis (ICD 10 Codes): Weakness R53.1, Z74.1 Need for assistance with personal care. Has the Physician been added for Co-signature?: Yes
[2023-10-16 05:22] LABS: BASOPHILS % (AUTO) 0.4 % (0.0-3.0); EOSINOPHILS # (AUTO) 0.9 K/ul (0.0-0.7); EOSINOPHILS % (AUTO) 7.8 % (0.0-7.0); HEMOGLOBIN 10.3 g/dl (14.0-18.0); IMMATURE GRANULOCYTE # (AUTO) 0.1 (0.0-1.0); IMMATURE GRANULOCYTE % (AUTO) 0.5 % (0.0-5.0); LYMPHOCYTES # (AUTO) 1.6 K/uL (0.60-3.4); LYMPHOCYTES % (AUTO) 14.9 (10.0-50.0); MEAN CORPUSCULAR HEMOGLOBIN 29.2 pg (27.0-31.0); MEAN CORPUSCULAR HGB CONC 32.2 (31.8-35.4); MEAN CORPUSCULAR VOLUME 90.7 fl (80.0-94.0); MONOCYTES # (AUTO) 1.2 K/uL (0.4-2.0); MONOCYTES % (AUTO) 11.2 (0-10); NEUTROPHILS # (AUTO) 7.2 K/ul (2.0-6.9); NEUTROPHILS % (AUTO) 65.2 % (42.2-75.2); PLATELET COUNT 237 10^3/uL (140-440); RDW COEFFICIENT OF VARIATION 19.9 % (11.6-14.8); RED BLOOD COUNT 3.53 10^6/ul (4.70-6.10); WHITE BLOOD COUNT 10.99 K/ul (4.2-10.2)
[2023-10-16 05:46] LABS: ALANINE AMINOTRANSFERASE 13.6 U/L (0-50); ALBUMIN 3.47 g/dL (3.5-5.0); ALKALINE PHOSPHATASE 53.8 U/L (56-119); ASPARTATE AMINO TRANSFERASE 33.5 U/L (17-59); BILIRUBIN,TOTAL 1.06 mg/dL (0.2-1.3); BLOOD UREA NITROGEN 28.8 mg/dL (9-20); CALCIUM 9.24 mg/dL (8.4-10.2); CARBON DIOXIDE 27.1 mmol/L (22-30.0); CHLORIDE 102.5 mmol/L (98-107); CREATININE 1.31 mg/dL (0.60-1.10); GLUCOSE 97.7 mg/dL (74-106); POTASSIUM 4.2 mmol/L (3.5-5.1); SODIUM 133.3 mmol/L (134.5-145); TOTAL PROTEIN 6.84 g/dL (6.3-8.2)
--- NOTE | 2023-10-16 10:17 | CT ---
EXAMINATION: HEAD CT WITHOUT CONTRAST HISTORY: Headache. TECHNIQUE: Noncontrast CT of the brain was performed with images acquired from skull base to vertex. 2-D coronal and sagittal reformatted images were obtained from the axial source images. Contrast Dose: None. CT Dose Reduction Techniques Performed: Yes. COMPARISON: 10/07/2023 FINDINGS: Mild atrophy, about the same. No intracranial hemorrhage or significant extra-axial fluid collection. No region of abnormal low attenuation in the brain. Bryan white differentiation is preserved. No mass effect or midline shift. Mild prominence of the ventricles, in proportion to the atrophy. The orbits have a normal appearance. Mild mucosal thickening of the ethmoid and left maxillary sinus, again noted, with a small air fluid level of the left maxillary sinus, mildly increased in size. The mastoid air cells are clear. IMPRESSION: 1. No acute intracranial findings. 2. Stable mild atrophy. 3. Mild acute on chronic left maxillary sinusitis, mildly progressed, with stable mild chronic ethmo id sinusitis. All CT scans are performed using dose optimization techniques as appropriate to the performed exam an d include at least one of the following: Automated exposure control, adjustment of the mA and/or kV according t o size, and the use of iterative reconstruction technique.
[2023-10-16] MEDS: FLONASE NAS SCH (11:49)
[2023-10-16] MEDS: ZOFRAN 4 MG/2 ML IVP PRN (12:00)
[2023-10-16] MEDS: DECADRON IVP ONE (12:04)
--- NOTE | 2023-10-16 12:18 | PCM.PROG ---
Date/Time Seen Date Seen by Provider: 10/16/23 Time Seen by Provider: 08:20 Provider Provider: GLEN GRIDER PA-C, [facility] Chief Complaint Chief Complaint: WEAKNESS, R/O A-FIB Subjective Subjective: Patient states he feels terrible today. States his head hurts. Describes it as burning from his nose to the top of his head. He was recently treated for sinusitis in last few weeks. He states he just overall doesn't feel good. Told the nurse he "feels like he is dying." Continues to be very orthostatic. Objective Appearance: Positive No Apparent Distress, Alert and Oriented x3 and Ill- Appearing Chest/Lungs: Positive Clear to Auscultation Bilaterally; Negative Rales, Rhonci or Wheezes Heart: Positive RRR GI/: Positive Soft, Nontender and Bowel Sounds Normal Neurological: Positive Cranial Nerves Intact, Alert, Oriented and Other (+generailzed weakness, follows commands, no focal deficits. ) Vital Signs Vital Signs: Vital Signs: Last 24 Hours 10/15/23 12:00 10/15/23 12:48 10/15/23 13:00 Temperature Temperature Source Pulse Rate Respiratory Rate Blood Pressure Blood Pressure Mean Blood Pressure Location Blood Pressure Position O2 Sat by Pulse Oximetry Oxygen Delivery Method Room Air Room Air Telemetry Type Remote Telemetry Telemetry Monitoring Continues Irregular Telemetry Rate (Approximate) Telemetry Heart Rate 61 EKG LA Interval 0.2 EKG QRS Interval 0.04 L Telemetry Strip Reading SR with PACs 10/15/23 14:00 10/15/23 14:00 10/15/23 14:00 Temperature 97.6 F Temperature Source Tympanic Pulse Rate 65 65 Respiratory Rate 18 Blood Pressure 134/62 134/62 Blood Pressure Mean 86 Blood Pressure Location Right Arm Right Arm Blood Pressure Position Supine Supine O2 Sat by Pulse Oximetry 95 Oxygen Delivery Method Room Air Room Air Telemetry Type Telemetry Monitoring Irregular Telemetry Rate (Approximate) Telemetry Heart Rate EKG LA Interval EKG QRS Interval Telemetry Strip Reading 10/15/23 14:00 10/15/23 15:00 10/15/23 16:00 Temperature Temperature Source Pulse Rate Respiratory Rate Blood Pressure Blood Pressure Mean Blood Pressure Location Blood Pressure Position O2 Sat by Pulse Oximetry Oxygen Delivery Method Room Air Room Air Room Air Telemetry Type Telemetry Monitoring Irregular Telemetry Rate (Approximate) Telemetry Heart Rate EKG LA Interval EKG QRS Interval Telemetry Strip Reading 10/15/23 17:00 10/15/23 17:46 10/15/23 17:57 Temperature 97.9 F Temperature Source Tympanic Pulse Rate 67 Respiratory Rate 18 Blood Pressure 140/65 Blood Pressure Mean 90 Blood Pressure Location Right Arm Blood Pressure Position Sitting O2 Sat by Pulse Oximetry 95 Oxygen Delivery Method Room Air Room Air Room Air Telemetry Type Telemetry Monitoring Irregular Telemetry Rate (Approximate) Telemetry Heart Rate EKG LA Interval EKG QRS Interval Telemetry Strip Reading 10/15/23 19:00 10/15/23 19:00 10/15/23 19:30 Temperature Temperature Source Pulse Rate Respiratory Rate Blood Pressure Blood Pressure Mean Blood Pressure Location Blood Pressure Position O2 Sat by Pulse Oximetry Oxygen Delivery Method Room Air Room Air Telemetry Type Remote Telemetry Telemetry Monitoring Continues Irregular Telemetry Rate (Approximate) Telemetry Heart Rate 61 EKG LA Interval 0.29 H EKG QRS Interval 0.07 Telemetry Strip Reading SR WITH 1ST DEGREE AVB 10/15/23 20:00 10/15/23 21:00 10/15/23 21:25 Temperature 99.1 F Temperature Source Temporal Artery Scan Pulse Rate 66 Respiratory Rate 17 Blood Pressure 150/69 H Blood Pressure Mean 96 Blood Pressure Location Left Arm Blood Pressure Position Supine O2 Sat by Pulse Oximetry 95 Oxygen Delivery Method Room Air Room Air Room Air Telemetry Type Telemetry Monitoring Irregular Telemetry Rate (Approximate) Telemetry Heart Rate EKG LA Interval EKG QRS Interval Telemetry Strip Reading 10/15/23 22:00 10/15/23 23:00 10/16/23 00:00 Temperature Temperature Source Pulse Rate Respiratory Rate Blood Pressure Blood Pressure Mean Blood Pressure Location Blood Pressure Position O2 Sat by Pulse Oximetry Oxygen Delivery Method Room Air Room Air Room Air Telemetry Type Telemetry Monitoring Irregular Telemetry Rate (Approximate) Telemetry Heart Rate EKG LA Interval EKG QRS Interval Telemetry Strip Reading 10/16/23 01:00 10/16/23 01:00 10/16/23 02:00 Temperature Temperature Source Pulse Rate Respiratory Rate Blood Pressure Blood Pressure Mean Blood Pressure Location Blood Pressure Position O2 Sat by Pulse Oximetry Oxygen Delivery Method Room Air Room Air Telemetry Type Remote Telemetry Telemetry Monitoring Continues Irregular Telemetry Rate (Approximate) Telemetry Heart Rate 65 EKG LA Interval 0.25 H EKG QRS Interval 0.06 Telemetry Strip Reading SR WITH 1ST DEGREE AVB 10/16/23 02:00 10/16/23 02:59 10/16/23 04:00 Temperature 99.9 F Temperature Source Temporal Artery Scan Pulse Rate 66 Respiratory Rate 18 Blood Pressure 176/71 H Blood Pressure Mean 106 Blood Pressure Location Right Arm Blood Pressure Position Supine O2 Sat by Pulse Oximetry 96 Oxygen Delivery Method Room Air Room Air Room Air Telemetry Type Telemetry Monitoring Irregular Telemetry Rate (Approximate) Telemetry Heart Rate EKG LA Interval EKG QRS Interval Telemetry Strip Reading 10/16/23 05:00 10/16/23 05:20 10/16/23 05:20 Temperature 98.6 F Temperature Source Oral Pulse Rate 72 Respiratory Rate 20 Blood Pressure 193/97 H 193/97 H Blood Pressure Mean 129 Blood Pressure Location Right Arm Blood Pressure Position Supine Supine O2 Sat by Pulse Oximetry 94 L Oxygen Delivery Method Room Air Room Air Telemetry Type Telemetry Monitoring Irregular Telemetry Rate (Approximate) Telemetry Heart Rate EKG LA Interval EKG QRS Interval Telemetry Strip Reading 10/16/23 05:21 10/16/23 05:21 10/16/23 06:00 Temperature Temperature Source Pulse Rate Respiratory Rate Blood Pressure 155/81 H 122/61 Blood Pressure Mean Blood Pressure Location Right Arm Right Arm Blood Pressure Position Sitting Standing O2 Sat by Pulse Oximetry Oxygen Delivery Method Room Air Telemetry Type Telemetry Monitoring Irregular Telemetry Rate (Approximate) Telemetry Heart Rate EKG LA Interval EKG QRS Interval Telemetry Strip Reading 10/16/23 07:00 10/16/23 07:00 10/16/23 08:00 Temperature Temperature Source Pulse Rate Respiratory Rate Blood Pressure Blood Pressure Mean Blood Pressure Location Blood Pressure Position O2 Sat by Pulse Oximetry Oxygen Delivery Method Room Air Room Air Telemetry Type Remote Telemetry Telemetry Monitoring Continues Irregular Telemetry Rate (Approximate) 80-90 BPM Telemetry Heart Rate EKG LA Interval 0.20 EKG QRS Interval 0.09 Telemetry Strip Reading SR with Pacs 10/16/23 08:55 10/16/23 09:00 10/16/23 10:00 Temperature Temperature Source Pulse Rate 70 Respiratory Rate 18 Blood Pressure 183/81 H Blood Pressure Mean 115 Blood Pressure Location Right Arm Blood Pressure Position Supine O2 Sat by Pulse Oximetry 97 Oxygen Delivery Method Room Air Room Air Room Air Telemetry Type Telemetry Monitoring Irregular Telemetry Rate (Approximate) Telemetry Heart Rate EKG LA Interval EKG QRS Interval Telemetry Strip Reading Lab Results Lab Results: Lab Results: Last 24 Hours 10/16/23 04:53 WBC 10.99 H RBC 3.53 L Hgb 10.3 L Hct 32.0 L MCV 90.7 MCH 29.2 MCHC 32.2 RDW Coeff of Sri 19.9 H Plt Count 237 Immature Gran % (Auto) 0.5 Neut % (Auto) 65.2 Lymph % (Auto) 14.9 [place] % (Auto) 11.2 H Eos % (Auto) 7.8 H Baso % (Auto) 0.4 Neut # (Auto) 7.2 H Lymph # (Auto) 1.6 [place] # (Auto) 1.2 Eos # (Auto) 0.9 H Baso # (Auto) 0.0 Immature Gran # (Auto) 0.1 Sodium 133.3 L Potassium 4.20 Chloride 102.5 Carbon Dioxide 27.1 Anion Gap 7.90 BUN 28.8 H Creatinine 1.31 H Estimated GFR (MDRD) 52.00 BUN/Creatinine Ratio 21.98 Glucose 97.7 Calcium 9.24 Total Bilirubin 1.06 AST 33.5 ALT 13.6 Alkaline Phosphatase 53.8 L Total Protein 6.84 Albumin 3.47 L Globulin 3.37 Albumin/Globulin Ratio 1.02 Additional Comments Additional Comments: I have independently reviewed and interpreted the labs/EKGs/imaging ordered duri ng this hospital stay. I have reviewed outside records that are available in our EMR that pertain to medical stay including imaging/notes/labs from previous visits. EXAMINATION: HEAD CT WITHOUT CONTRAST HISTORY: Headache. TECHNIQUE: Noncontrast CT of the brain was performed with images acquired from skull base to vertex. 2-D coronal and sagittal reformatted images were obtained from the axial source images. Contrast Dose: None. CT Dose Reduction Techniques Performed: Yes. COMPARISON: 10/07/2023 FINDINGS: Mild atrophy, about the same. No intracranial hemorrhage or significant extra-axial fluid collection. No region of abnormal low attenuation in the brain. Bryan white differentiation is preserved. No mass effect or midline shift. Mild prominence of the ventricles, in proportion to the atrophy. The orbits have a normal appearance. Mild mucosal thickening of the ethmoid and left maxillary sinus, again noted, with a small air fluid level of the left maxillary sinus, mildly increased in size. The mastoid air cells are clear. IMPRESSION: 1. No acute intracranial findings. 2. Stable mild atrophy. 3. Mild acute on chronic left maxillary sinusitis, mildly progressed, with sta ble mild chronic ethmoid sinusitis. Active Medications Active Medications: Medications Generic Name Dose Route Start Last Admin Trade Name Freq PRN Reason Stop Dose Admin Acetaminophen 650 mg 10/14/23 20:30 10/16/23 06:45 Acetaminophen 325 Mg Tablet PO 650 mg Q4H PRN Administration Mild Pain Allopurinol 100 mg 10/15/23 09:00 10/15/23 09:19 Allopurinol 100 Mg Tablet PO 100 mg DAILY BERYL Administration Amlodipine Besylate 5 mg 10/15/23 09:00 10/15/23 09:18 Amlodipine Besylate 5 Mg Tablet PO 5 mg DAILY BERYL Administration Amoxicillin/Clavulanate Potassium 1 tab 10/15/23 13:00 10/16/23 04:38 Amoxicillin/Potassium Clav 875/125 Mg Tablet PO 10/21/23 20:59 1 tab Q8HR BERYL Administration Aspirin 81 mg 10/15/23 07:30 10/15/23 09:19 Aspirin 81 Mg Tablet.Dr PO 81 mg DAILYWM2 BERYL Administration Atenolol 12.5 mg 10/15/23 09:00 10/15/23 09:19 Atenolol 25 Mg Tablet PO 12.5 mg DAILY BERYL Administration Atorvastatin Calcium 40 mg 10/14/23 21:00 10/15/23 20:40 Atorvastatin Calcium 20 Mg Tablet PO 40 mg BEDTIME BERYL Administration Calcitriol 0.25 mcg 10/15/23 09:00 10/15/23 09:28 Calcitriol 0.25 Mcg Capsule PO Not Given DAILY BERYL Citalopram Hydrobromide 60 mg 10/15/23 09:00 10/15/23 09:20 Citalopram Hydrobromide 20 Mg Tablet PO 60 mg DAILY BERYL Administration Dexamethasone Sodium Phosphate 8 mg 10/16/23 11:04 Dexamethasone Sod Phos 10 Mg/Ml Inj IVP 10/16/23 11:05 ONCE ONE Fluticasone Propionate 2 spray 10/16/23 11:00 Fluticasone Propionate 16 Gm Nasal [place] NADEGE DAILY BERYL Hydralazine HCl 100 mg 10/14/23 21:00 10/15/23 09:19 Hydralazine Hcl 50 Mg Tablet PO 100 mg BID BERYL Administration Lactated Ringer's 1,000 mls @ 125 mls/hr 10/15/23 10:08 10/16/23 11:09 Lactated Ringers IV 125 mls/hr .Q8H BERYL Administration Isosorbide Mononitrate 30 mg 10/15/23 09:00 10/15/23 09:20 Isosorbide Mononitrate 30 Mg Tab.Er.24h PO 30 mg DAILY BERYL Administration Levothyroxine Sodium 112 mcg 10/15/23 06:30 10/16/23 05:39 Levothyroxine Sodium 112 Mcg Tablet PO 112 mcg 0630 BERYL Administration Loratadine 10 mg 10/15/23 09:00 10/15/23 09:19 Loratadine 10 Mg Tablet PO 10 mg DAILY BERYL Administration Non-Formulary Medication 90 mg 10/14/23 21:00 10/15/23 20:40 Ticagrelor [Brilinta] PO 90 mg BID BERYL Administration Ondansetron HCl 4 mg 10/14/23 20:30 Ondansetron Hcl/Pf 4 Mg/2 Ml Sdv IVP Q6H PRN Nausea / Vomiting Pantoprazole Sodium 40 mg 10/15/23 07:30 10/16/23 05:04 Pantoprazole Sodium 40 Mg Tablet. PO 40 mg BIDAC2 BERYL Administration Saccharomyces Boulardii 250 mg 10/14/23 21:00 10/15/23 20:40 Saccharomyces Boulardii 250 Mg Capsule PO 250 mg BID BERYL Administration Sodium Chloride 1 gm 10/15/23 06:00 10/16/23 05:04 Sodium Chloride 1 Gm Tablet PO 1 gm TIDAC2 BERYL Administration Tamsulosin HCl 0.4 mg 10/15/23 09:00 10/15/23 09:20 Tamsulosin Hcl 0.4 Mg Cap.Er.24h PO 0.4 mg DAILY BERYL Administration Plan Plan: 1. Orthostatic hypotension - Worsened. Patient dropped from 183 to 124 with standing. Continue hydration. No specific culprits on medications except flomax. Will hold. Pts legs too small for denzel hose. Fall precautions. 2. CAD - Pt following Dr. Ashby at [facility]. 3. Anemia, chronic - [facility] patient gets darbepoetin shots 60 mcg q4 weeks and follows with heme/onc outpatient. 4. Hypertension - Cont home meds 5. Hyperlipidemia - Cont home meds 6. Gout - Cont home meds 7. Hypothyroidism - Continue home meds 8. GERD - Cont home meds 9. BPH - Hold flomax 10. Weakness - PT/OT consult 11. Arrhythmia - Pt has an irregular rhythm but p waves are present, doesn't appear to be a fib. Reviewed by Dr. Jacy Bay as well. Cont tele. Check echo. Consider discharge w/ holter. 12. Acute sinusitis - Pt on augmentin already for recent diverticulitis. Add flonase. Decadron x1. 13. Recent diverticulititis - Cont augmentin DVT: Lovenox Dispo: Accepted at [facility] once medically stable Review Statement Review Statement: I have personally discussed and reviewed the patient's visit/currently labs/imaging/decision making with Dr. Bay, my supervising attending. Greater that 50 minutes spent with patient, 50% of the time spent with this patient was devoted to counseling and coordination of care.
--- NOTE | 2023-10-16 12:36 | ECHO2D ---
Date of Exam: 10/15/2023 Ordering Physician: HOSPITALIST: GLEN GRIDRE SUGARCANE PLANTER; PCP: JAZZMINE MACIEL Room #: 115 Reason for Echo: NEW ONSET ATRIAL FIBRILLATION, WEAKNESS, ELEVATED BNP, CONGESTIVE HEART FAILURE, ACUTE RENAL FAILURE, COPD, HYPERTENSION, DIABETES MELLITUS, CORONARY ARTERY DISEASE M-Mode Normal Adult Results LV Dimensions Normal Adult Results AoV Opening excursions >1.6 >1.6 LVEDD-base- 3.5-5.8 5.2 Ao root dimensions 2.0-3.7 3.3 LVESD-base- 3.1-4.6 L. Atrium dimensions 1.9-3.8 4.8 Post. Wall thickness 0.8-1.1 1.3 IV septum (thickness) 0.7-1.2 1.4 Post. Wall excursion 0.72-1.3 NORMAL Septal motion NORMAL Systolic motion R. Ventricular cavity 1.5-2.0 NORMAL LVEF 60% 65% Paradoxical septal wall motion NORMAL 2-D : ENLARGED LEFT ATRIAL CAVITY OTHERWISE NORMAL. 2-D M Mode Echocardiogram was performed using apical four chamber and left parasternal long and short axis views. Mitral, tricuspid and aortic valves appear to be normal. Contractility of the left ventricle seems to be normal, so is the cavity size. ENLARGED LEFT ATRIAL CAVITY. Aortic root appears to be normal. There is no pericardial effusion. There is no thrombus noted in the left ventricle or left atrial cavity. M-MODE: MV: NORMAL AV: NORMAL TV: NORMAL PV: NORMAL CHAMBER SIZE: ENLARGED LEFT ATRIAL CAVITY WALL MOTION: NORMAL LEFT VENTRICULAR FUNCTION PERICARDIUM: NORMAL INTERPRETATION: 1. LEFT VENTRICULAR HYPERTROPHY (MODERATE). 2. ENLARGED LEFT ATRIAL CAVITY (4.8cm). 3. NORMAL VALVES. 4. CALCIFIC MITRAL VALVES ANNULUS. 5. NORMAL LEFT VENTRICLE SIZE AND LET VENTRICULAR CONTRACTILITY. MTDD
[2023-10-16] MEDS: LOVENOX SUBCUT SCH (12:42)
[2023-10-16] MEDS: CHLORASEPTIC SPRAY MM PRN (14:14)
[2023-10-16] MEDS: APRESOLINE PO SCH (14:51)
[2023-10-16] MEDS: MORPHINE 2 MG/ML SYRINGE IVP ONE (19:42)
--- NOTE | 2023-10-16 20:42 | CT ---
EXAM: CT ABDOMEN/PELVIS WITH CONTRAST HISTORY: Abdominal pain with cramping and nausea COMPARISON: CT abdomen/pelvis from 10/10/2023 TECHNIQUE: Multi-slice postcontrast transaxial helical images are acquired through the abdomen and p karina with coronal and sagittal reconstructed images. All CT scans are performed using dose optimi zation techniques as appropriate to the performed exam and includes at least one of the following: A utomated exposure control, adjustment of the mA and/or kV according to size, and the use of iterative reconstruction technique. CONTRAST: 95 mL Visipaque [id number] IV FINDINGS: Lung bases: Trace pleural effusions layer dependently with subjacent atelectasis. Liver: Mild diffuse low attenuation. Gallbladder/bilary tree: Previous cholecystectomy without biliary dilatation. Pancreas: Normal. Adrenal glands: Normal. Spleen: Normal. Kidneys: Simple acquired bilateral renal cysts are noted. No suspicious renal masses or hydroureter onephrosis. Retroperitoneum: The abdominal aorta is atherosclerotic. There is severe stenosis at the origins of the celiac and superior mesenteric arteries. Severe left renal artery stenosis is suggested. Addit ional moderate if not severe right renal artery stenosis is suggested. No retroperitoneal lymphadeno marilee or hematomas. Peritoneum: Trace free pelvic fluid. Bowel: No intestinal distension. Small bowel loops are mildly dilated diffusely with mucosal fold p rominence. The appendix is normal. Diverticula arise from the sigmoid colon without CT evidence of diverticulitis. No gastric dilatation. Pelvis: Trace free pelvic fluid. The nonopacified bladder is grossly normal. Addominal wall/bones: Normal. IMPRESSION: - Possible enteritis. Nonobstructive intestinal gas pattern and normal appendix. - Colonic diverticulosis without CT evidence of diverticulitis. - Trace pleural effusions. - Mild diffuse hepatic steatosis. - Previous cholecystectomy without biliary dilatation. - Simple acquired renal cysts. 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 - Severe left renal artery stenosis and moderate to severe right renal artery stenosis. - Trace ascites. . All CT scans are performed using dose optimization techniques as appropriate to the performed exam an d include at least one of the following: Automated exposure control, adjustment of the mA and/or kV according t o size, and the use of iterative reconstruction technique.
[2023-10-17 05:05] VITALS: PULSE 64
[2023-10-17 05:24] LABS: BASOPHILS % (AUTO) 0.2 % (0.0-3.0); HEMATOCRIT 28.6 % (42.0-52.0); HEMOGLOBIN 9.5 g/dl (14.0-18.0); IMMATURE GRANULOCYTE % (AUTO) 0.5 % (0.0-5.0); LYMPHOCYTES % (AUTO) 11.9 (10.0-50.0); MEAN CORPUSCULAR HGB CONC 33.2 (31.8-35.4); MEAN CORPUSCULAR VOLUME 90.2 fl (80.0-94.0); MONOCYTES # (AUTO) 1.1 K/uL (0.4-2.0); MONOCYTES % (AUTO) 12.3 (0-10); NEUTROPHILS # (AUTO) 6.5 K/ul (2.0-6.9); NEUTROPHILS % (AUTO) 75.1 % (42.2-75.2); PLATELET COUNT 228 10^3/uL (140-440); RDW COEFFICIENT OF VARIATION 19.3 % (11.6-14.8); RED BLOOD COUNT 3.17 10^6/ul (4.70-6.10); WHITE BLOOD COUNT 8.59 K/ul (4.2-10.2)
[2023-10-17 05:52] LABS: ALANINE AMINOTRANSFERASE 15.1 U/L (0-50); ALBUMIN 3.11 g/dL (3.5-5.0); ALKALINE PHOSPHATASE 47.4 U/L (56-119); ASPARTATE AMINO TRANSFERASE 35.4 U/L (17-59); BILIRUBIN,TOTAL 0.98 mg/dL (0.2-1.3); CALCIUM 8.91 mg/dL (8.4-10.2); CARBON DIOXIDE 25.6 mmol/L (22-30.0); CHLORIDE 102.6 mmol/L (98-107); CREATININE 1.24 mg/dL (0.60-1.10); GLUCOSE 127.5 mg/dL (74-106); POTASSIUM 4.01 mmol/L (3.5-5.1); SODIUM 131.5 mmol/L (134.5-145); TOTAL PROTEIN 6.34 g/dL (6.3-8.2)
[2023-10-17 10:23] VITALS: BP 170/83; RESP 16; TEMP 98.8
--- NOTE | 2023-10-17 10:43 | DCSUM ---
Admission Date Admission Date: 10/14/23 Discharge Date Discharge Date: 10/17/23 Admission Diagnosis Admission Diagnosis: 1. Orthostatic hypotension Discharge Diagnosis Discharge Diagnosis: 1. Orthostatic hypotension 2. CAD 3. Anemia, chronic 4. Hypertension 5. Hyperlipidemia 6. Gout 7. Hypothyroidism 8. GERD 9. BPH 10. Weakness 11. Arrhythmia 12. Acute sinusitis 13. Recent diverticulititis Hospital Provider Hospital Provider: GLEN GRIDER PA-C, [facility] Primary Care Physician Primary Care Physician: JAZZMINE MACIEL Summary of History and Physical Summary of History and Physical: Patient is an 83 year old male from home with pmhx of COPD, CAD, hypertension, hypothyroidism, GERD, BPH, hyperlipidemia, gout who presented to the ER for weakness. Patient has had multiple ER visits lately between [place] and [facility]. He was admitted last week with diverticulitis. He states his abd pain and diarrhea has resolved, he just feels very weak. He states standing up yesterday he felt "weird". He has a hard time characterizing it but states it's not how he normally feels. He felt unsteady. He has not fallen. In the ER work up rather unremarkable. Pt noted to have an irregular rhythm on tele. ERP felt patient was having paroxysmal a fib, which would be a new diagnosis for him. He lives with his son but states he feels he is becoming a burden to him. They have started the process of looking at nursing homes. On my evaluation this morning patient states he's feeling somewhat better today but not at his baseline. Orthostatic vitals were checked and patient dropped 40 points systolic. Hospital Course Subjective: Patient was noted to have orthostatic hypotension. Flomax was held. He was gently hydrated. Mora kacy applied. Continued to have orthostatic blood pressures but mildly improved. He denies symptoms at this time. Discussed up with assistance. Will need to f/u with his lay out carpenter Dr. Jones. On 10/16 patient complained of headache and abd pain. CT head negative. CT abd/pelvis no longer showing diverticulitis. It did mention nikolas renal artery stenosis, for which outpatient nephrology f/u is recommended. It also mentioned celiac and superior mesenteric artery stenosis. Pt would benefit from outpatient vascular f/u. Pt decided to go to the skilled nursing for rehab. Discharged to [place] in stable condition. Pt will finish augmentin for the diverticulitis and sinusitis on Friday 10/20. Of note, patient did have a sinus arrhythmia on telemetry and ekgs but p waves were present, did not feel it was a fib. Reviewed by Dr. Jacy Bay as well. Appearance: Pleasant, No Apparent Distress and Alert HEENT: MMM and Supple CVS: No Murmur Abdomen: Soft, Non-Tender and No Distention Respiratory: No Dyspnea Extremities: No Edema Vital Signs: Most Recent Vital Signs Temperature 98.8 F 10/17/23 10:00 Temperature Source Temporal Artery Scan 10/17/23 10:00 Temperature Source Infrared 10/14/23 14:39 Pulse Rate 64 10/17/23 10:00 Respiratory Rate 16 10/17/23 10:00 Blood Pressure 170/83 H 10/17/23 10:00 Blood Pressure Mean 112 10/17/23 10:00 Blood Pressure Right Arm 152/77 10/14/23 19:48 Blood Pressure Location Right Arm 10/17/23 10:00 Blood Pressure Position Supine 10/17/23 10:00 O2 Sat by Pulse Oximetry 95 10/17/23 10:00 Oxygen Delivery Method Room Air 10/17/23 10:00 Height 6 ft 1 in 10/15/23 11:15 Weight 146 lb 10/15/23 11:15 Telemetry Type Remote Telemetry 10/17/23 07:00 Telemetry Monitoring Continues 10/17/23 07:00 Irregular Telemetry Rate (Approximate) 80-90 BPM 10/16/23 07:00 Telemetry Heart Rate 62 10/17/23 07:00 Telemetry SPO2 94 10/09/23 07:00 EKG MS Interval 0.24 H 10/17/23 07:00 EKG QRS Interval 0.08 10/17/23 07:00 Telemetry Strip Reading SR WITH 1ST DEGREE AVB AND PACS 10/17/23 07:00 Imaging: EXAM: CHEST ONE-VIEW HISTORY: Weakness COMPARISON: Chest radiograph series from 10/07/2023 FINDINGS: There is a questionable small right pneumothorax with pleural separation up to 0.6 cm. The cardiomediastinal silhouette is normal. The pulmonary vasculature is normal. No consolidating infiltrates are detected. The left costophrenic angle is chronically blunted. IMPRESSION: 1. Small right pneumothorax suggested with 0.6 cm of pleural separation. Unexpected finding. 2. Probable chronic pleural parenchymal scarring of the left costophrenic angle. EXAM: CHEST CT WITHOUT CONTRAST HISTORY: Concern for pneumothorax. TECHNIQUE: CT acquisition of the chest from the thoracic inlet to the upper abdomen without IV contrast administration. COMPARISON: Chest radiograph 10/14/2023. FINDINGS: Lines, Tubes, Devices: None. Lung Parenchyma, Pleura, and Airways: Saber sheath configuration of the trachea. Emphysema. No pneumothorax. No acute airspace consolidation. No suspicious mass. Mild dependent atelectasis at the lung bases. Calcified granuloma in the left lower lobe. No pleural effusion. Thoracic Inlet, Mediastinum, and Betty: Thyroid gland is normal. Calcified granulomas in the mediastinum and betty. Heart, Vessels, and Pericardium: Extensive atherosclerotic calcifications and heavy Tri-vessel coronary calcifications. Calcifications of the aortic valve No cardiomegaly. Trace pericardial fluid. Bones and Soft Tissues: No acute osseous abnormality. Mild bilateral gynecomastia. Multilevel degenerative spondylosis. Superior endplate concavity of the T9 vertebral body. Chronic rib fractures. Upper Abdomen: Post cholecystectomy. Calcified granulomas in the spleen and liver. Bilateral simple appearing renal cysts. IMPRESSION: No pneumothorax or acute process in the chest. Finding on chest radiograph was likely a prominent skin fold. Emphysema. Saber sheath configuration of the trachea consistent with obstructive pulmonary disease. Calcified atherosclerosis with coronary calcifications. EXAMINATION: HEAD CT WITHOUT CONTRAST HISTORY: Headache. TECHNIQUE: Noncontrast CT of the brain was performed with images acquired from skull base to vertex. 2-D coronal and sagittal reformatted images were obtained from the axial source images. Contrast Dose: None. CT Dose Reduction Techniques Performed: Yes. COMPARISON: 10/07/2023 FINDINGS: Mild atrophy, about the same. No intracranial hemorrhage or significant extra-axial fluid collection. No region of abnormal low attenuation in the brain. Bryan white differentiation is preserved. No mass effect or midline shift. Mild prominence of the ventricles, in proportion to the atrophy. The orbits have a normal appearance. Mild mucosal thickening of the ethmoid and left maxillary sinus, again noted, with a small air fluid level of the left maxillary sinus, mildly increased in size. The mastoid air cells are clear. IMPRESSION: 1. No acute intracranial findings. 2. Stable mild atrophy. 3. Mild acute on chronic left maxillary sinusitis, mildly progressed, with stable mild chronic ethmoid sinusitis. EXAM: CT ABDOMEN/PELVIS WITH CONTRAST HISTORY: Abdominal pain with cramping and nausea COMPARISON: CT abdomen/pelvis from 10/10/2023 TECHNIQUE: Multi-slice postcontrast transaxial helical images are acquired through the abdomen and pelvis with coronal and sagittal reconstructed images. All CT scans are performed using dose optimization techniques as appropriate to the performed exam and includes at least one of the following: Automated exposure control, adjustment of the mA and/or kV according to size, and the use of iterative reconstruction technique. CONTRAST: 95 mL Visipaque [id number] IV FINDINGS: Lung bases: Trace pleural effusions layer dependently with subjacent atelectasis. Liver: Mild diffuse low attenuation. Gallbladder/bilary tree: Previous cholecystectomy without biliary dilatation. Pancreas: Normal. Adrenal glands: Normal. Spleen: Normal. Kidneys: Simple acquired bilateral renal cysts are noted. No suspicious renal masses or hydroureteronephrosis. Retroperitoneum: The abdominal aorta is atherosclerotic. There is severe stenosis at the origins of the celiac and superior mesenteric arteries. Severe left renal artery stenosis is suggested. Additional moderate if not severe right renal artery stenosis is suggested. No retroperitoneal lymphadenopathy or hematomas. Peritoneum: Trace free pelvic fluid. Bowel: No intestinal distension. Small bowel loops are mildly dilated diffusely with mucosal fold prominence. The appendix is normal. Diverticula arise from the sigmoid colon without CT evidence of diverticulitis. No gastric dilatation. Pelvis: Trace free pelvic fluid. The nonopacified bladder is grossly normal. Addominal wall/bones: Normal. IMPRESSION: - Possible enteritis. Nonobstructive intestinal gas pattern and normal appendix. - Colonic diverticulosis without CT evidence of diverticulitis. - Trace pleural effusions. - Mild diffuse hepatic steatosis. - Previous cholecystectomy without biliary dilatation. - Simple acquired renal cysts. 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 - Severe left renal artery stenosis and moderate to severe right renal artery stenosis. - Trace ascites. Lab Results Last 24 Hours: 10/17/23 04:49 WBC 8.59 RBC 3.17 L Hgb 9.5 L Hct 28.6 L MCV 90.2 MCH 30.0 MCHC 33.2 RDW Coeff of Sri 19.3 H Plt Count 228 Immature Gran % (Auto) 0.5 Neut % (Auto) 75.1 Lymph % (Auto) 11.9 [place] % (Auto) 12.3 H Eos % (Auto) 0.0 Baso % (Auto) 0.2 Neut # (Auto) 6.5 Lymph # (Auto) 1.0 [place] # (Auto) 1.1 Eos # (Auto) 0.0 Baso # (Auto) 0.0 Immature Gran # (Auto) 0.0 Sodium 131.5 L Potassium 4.01 Chloride 102.6 Carbon Dioxide 25.6 Anion Gap 7.31 BUN 28.0 H Creatinine 1.24 H Estimated GFR (MDRD) 56.00 BUN/Creatinine Ratio 22.58 Glucose 127.5 H Calcium 8.91 Total Bilirubin 0.98 AST 35.4 ALT 15.1 Alkaline Phosphatase 47.4 L Total Protein 6.34 Albumin 3.11 L Globulin 3.23 Albumin/Globulin Ratio 0.96 Discharge Instructions Discharge Planning: Discharge Planning > [address] Jacy Bay. Discharge Medications: Medications at Discharge (Home Meds & RX) citalopram 40 mg tablet (Celexa) 60 mg PO DAILY 10/30/17 pantoprazole 40 mg tablet,delayed release 40 mg PO BID 10/30/17 tamsulosin 0.4 mg capsule 0.4 mg PO DAILY 10/30/17 allopurinol 100 mg tablet 100 mg PO DAILY 06/25/23 amlodipine 10 mg tablet 5 mg PO DAILY 06/25/23 aspirin 81 mg tablet,delayed release (Lor Low Dose Aspirin) 81 mg PO DAILY 06/25/23 atorvastatin 80 mg tablet 40 mg PO BEDTIME 06/25/23 calcitriol 0.25 mcg capsule 0.25 mcg PO DAILY 06/25/23 hydralazine 100 mg tablet 100 mg PO BID 06/25/23 isosorbide mononitrate 30 mg tablet,extended release 24 hr 30 mg PO DAILY 06/25 levothyroxine 112 mcg tablet (Euthyrox) 112 mcg PO DAILY 06/25/23 loratadine 10 mg tablet (Allerclear) 10 mg PO DAILY 06/25/23 losartan 100 mg tablet (Cozaar) 50 mg PO BID 06/25/23 magnesium oxide 400 mg PO DAILY 06/25/23 nitroglycerin 0.4 mg sublingual tablet 0.4 mg sublingual Q5-15M PRN chest pain 06/25/23 omega 0-[id number]-[id number]-fish oil 300 mg-1,000 mg capsule (Fish Oil) 1 cap PO DAILY 06/25 atenolol 25 mg tablet 12.5 mg (1/2 x 25 mg) PO DAILY #30 tabs 06/27/23 furosemide 20 mg tablet 20 mg PO DAILY 08/27/23 fluticasone propionate 50 mcg/actuation nasal spray,suspension 2 spray int ranasal DAILY 10/07/23 ticagrelor 90 mg tablet (Brilinta) 90 mg PO BID 10/07/23 amoxicillin 875 mg-potassium clavulanate 125 mg tablet 1 tab PO BID 10/08/23 Saccharomyces boulardii 250 mg capsule (Florastor) 250 mg PO BID #20 caps 10/11/23 amoxicillin 875 mg-potassium clavulanate 125 mg tablet 1 tab PO Q8H 10 days #30 tabs 10/11/23 ondansetron 4 mg disintegrating tablet 4 mg PO Q6H PRN nausea and vomiting #30 tabs 10/11/23 sodium chloride 1,000 mg soluble tablet 1,000 mg PO TID #90 tabs 10/11/23 Discharge Plan Discharge Discharge Orders: Discharge Patient (ONCE); Ordered 10/17/23 Ordered By: GLEN GRIDER Activity Restrictions/Additional Instructions: DISCHARGE TO [facility] DIET: HEART HEALTHY ACTIVITY: FALL PRECAUTIONS, UP WITH ASSISTANCE DX: ORTHOSTATIC HYPOTENSION MORA COLLADO RECOMMENDED RECOMMEND CLOSE F/U WITH DR. JONES, CARDIOLOGY RECOMMEND OUTPATIENT REFERRAL TO NEPHROLOGY FOR RENAL ARTERY STENOSIS RECOMMEND OUTPATIENT REFERRAL TO VASCULAR FOR CELIAC AND SUPERIOR MESENTERIC ARTERY STENOSIS AUGMENTIN TO BE COMPLETED AFTER LAST DOSE FRIDAY 10/20 MONITOR OUTPATIENT BMP, CONSIDER STOPPING SODIUM TABS WHEN ABLE Patient Disposition: TRANSFER SNF Prescriptions: Continued citalopram [Celexa] 40 MG tablet 60 mg PO DAILY pantoprazole 40 MG tablet,delayed release (DR/EC) 40 mg PO BID furosemide 20 mg tablet 20 mg PO DAILY omega [id number]-fish oil [Fish Oil] 300-1,000 mg capsule 1 cap PO DAILY aspirin [Lor Low Dose Aspirin] 81 mg tablet,delayed release (DR/EC) 81 mg PO DAILY levothyroxine [Euthyrox] 112 mcg tablet 112 mcg PO DAILY losartan [Cozaar] 100 mg tablet 50 mg PO BID calcitriol 0.25 mcg capsule 0.25 mcg PO DAILY loratadine [Allerclear] 10 mg tablet 10 mg PO DAILY atorvastatin 80 mg tablet 40 mg PO BEDTIME allopurinol 100 mg tablet 100 mg PO DAILY amlodipine 10 mg tablet 5 mg PO DAILY isosorbide mononitrate 30 mg tablet extended release 24 hr 30 mg PO DAILY hydralazine 100 mg tablet 100 mg PO BID magnesium oxide 400 mg magnesium capsule 400 mg PO DAILY nitroglycerin 0.4 mg tablet, sublingual 0.4 mg sublingual Q5-15M PRN (Reason: chest pain) Rx Instructions: do not exceed 3 doses per episode atenolol 25 mg tablet 12.5 mg PO DAILY Qty: 30 0RF fluticasone propionate 50 mcg/actuation spray,suspension 2 spray INTRANASAL DAILY Patient Comments: USE 2 SPRAY(S) IN EACH NOSTRIL ONCE DAILY Brilinta 90 mg tablet 90 mg PO BID Patient Comments: TAKE 1 TABLET BY MOUTH TWICE DAILY Saccharomyces boulardii [Florastor] 250 mg Capsule 250 mg PO BID Qty: 20 0RF sodium chloride 1,000 mg Tablet,Soluble 1,000 mg PO TID Qty: 90 0RF ondansetron 4 mg tablet,disintegrating 4 mg PO Q6H PRN (Reason: nausea and vomiting) Qty: 30 0RF amoxicillin-pot clavulanate 875-125 mg tablet 1 tab PO Q8H Qty: 1 0RF Rx Instructions: LAST DOSE 10/20 Discontinued tamsulosin 0.4 MG capsule 0.4 mg PO DAILY amoxicillin-pot clavulanate 875-125 mg tablet 1 tab PO BID Did you review [place] [employer]ATOR for ALL controlled substances?: Not Applicable Discussed opioids are addictive and Narcan is available by prescription or from pharmacy.: No Condition: Stable
== END 2023-10-17 11:38 | DRG 312 ==
LOC: MEDSURG B 14:37 → ED 14:37 → MEDSURG B 19:36
PROVIDERS: ADMIT Hospitalist; ATTEND Physician Assistant
DX: J44.9 Chronic obstructive pulmonary disease, unspecified; F17.210 Nicotine dependence, cigarettes, uncomplicated; I95.1 Orthostatic hypotension; K21.9 Gastro-esophageal reflux disease without esophagitis; R26.81 Unsteadiness on feet; I48.91 Unspecified atrial fibrillation; Z20.822 Contact with and (suspected) exposure to COVID-19; R53.1 Weakness; J01.00 Acute maxillary sinusitis, unspecified; K57.92 Diverticulitis of intestine, part unspecified, without perforation or abscess without bleeding; D63.8 Anemia in other chronic diseases classified elsewhere; J43.9 Emphysema, unspecified; N40.0 Benign prostatic hyperplasia without lower urinary tract symptoms; I25.10 Atherosclerotic heart disease of native coronary artery without angina pectoris; E03.9 Hypothyroidism, unspecified; Z86.79 Personal history of other diseases of the circulatory system

== ENCOUNTER 2023-12-17 16:22 | Observation (INO) ==
--- NOTE | 2023-12-17 16:57 | ED.PDOC ---
General ED Provider: Dr. JUSTINE AMAYA MD Chief Complaint: Diarrhea Stated Complaint: Patient with history of coronary disease, COPD, hypertension, complains of persistent diarrhea over the past 2 weeks associated with lower abdominal pain. Denies fever, urinary symptoms, patient placed having 10 watery episodes of diarrhea daily for the past 2 weeks. Onset of lower abdominal pain the past 5 days, Time Seen by Provider: 12/17/23 16:55 Mode of Arrival: Wheelchair Information Source: Patient Primary Care Provider: JAZZMINE MACIEL Nursing and Triage Documentation Reviewed and Agree: Yes What is Opioid Naive?: *Opioid Naive implies the patient is not already taking opioids or not chronically receiving opioids on a daily basis. *PRN dosing is not "usually" associated with tolerance. *Patients are at higher risk of over-sedation and aspiration. What is Opioid Tolerant?: *Opioid Tolerance implies less than the expected response to an opioid. *Acquired tolerance is defined by the patient taking 60mg of oral morphine daily (or equianalgesic dose of another opioid) for 1 week or more. *Often associated with chronic pain. *May take more than usual dose to achieve desired pain control. Review of Systems Review Of Systems Constitutional: Reports No symptoms Eyes: Reports No symptoms Ears, Nose, Mouth, Throat: Reports No symptoms Respiratory: Reports No symptoms Cardiac: Reports No symptoms GI: Reports Abdominal pain and Diarrhea : Reports No symptoms Musculoskeletal: Reports No symptoms Skin: Reports No symptoms Neurological: Reports No symptoms Endocrine: Reports No symptoms Hematologic/Lymphatic: Reports No symptoms All Other Systems: Reviewed and Negative [facility] Medical History History of aortic stenosis Z86.79 - Personal history of other diseases of the circulatory system (ICD- 10) Bilateral carotid artery disease I77.9 - Disorder of arteries and arterioles, unspecified (ICD-10) Depression F32.A - Depression, unspecified (ICD-10) Anxiety F41.9 - Anxiety disorder, unspecified (ICD-10) COPD (chronic obstructive pulmonary disease) J44.9 - Chronic obstructive pulmonary disease, unspecified (ICD-10) Hyperlipidemia E78.5 - Hyperlipidemia, unspecified (ICD-10) Anemia D64.9 - Anemia, unspecified (ICD-10) Hypothyroidism E03.9 - Hypothyroidism, unspecified (ICD-10) Diabetes E11.9 - Type 2 diabetes mellitus without complications (ICD-10) Myocardial infarct March 2023 I21.9 - Acute myocardial infarction, unspecified (ICD-10) Hypertension I10 - Essential (primary) hypertension (ICD-10) Family History Other No known health problems Social History Smoking and tobacco status: Current every day smoker Tobacco type: cigarettes Smoking packs per day: 1 Smoking cigarettes per day: 20.0 Quit status: considering quitting Substance use type: does not use Special elio needs: No Agree to transfusion: Yes Adopted: No Caregiver/support person: Yes Foster care: No Household members: children Housing: house Marital status: W / Lives independently: Yes Daycare: no daycare Number of children: 1 Financial difficulty paying for basics: not very hard service: Yes long term: No Current occupational status: retired History of recent travel: No Do you think of yourself as: straight/heterosexual Current gender identity: male Seatbelt use: always Helmet use: Yes Drives intoxicated or rides with intoxicated airport driver: No Surgical History History of coronary artery stent placement Z95.5 - Presence of coronary angioplasty implant and graft (ICD-10) Status post spinal disc removal Z98.890 - Other specified postprocedural states (ICD-10) 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 - Acquired absence of other parts of urinary tract (ICD-10) Physical Exam Physical Exam Appearance: Reports Well-appearing Ill-appearing: Mild Pain Distress: None Eyes: Reports KINSEY, EOMI and Conjunctiva clear ENT: Reports Ears normal, Nose normal and Oropharynx normal Neck: Supple Respiratory: Reports Airway patent, Breath sounds clear and Breath sounds equal Cardiovascular: Reports RRR, Pulses normal, No rub and No murmur GI/: Reports Soft, No masses, Bowel sounds normal and Tender (Suprapubic and left lower quadrant tenderness without guarding or tenderness) Musculoskeletal: Reports Normal strength Skin: Reports Warm and Dry Neurological: Reports Sensation intact, Motor intact and Reflexes intact Psychiatric: Reports Affect appropriate and Mood appropriate Physician Notification Case Discussed Physician Notified: Discussed with hospitalist Hussain Maciel Time of Notification: 19:50 Comments: Discussed results of all laboratory data and CT scan findings recommendation for observation Critical Care Note Critical Care Note Total Critical Care Time (mins): 0 Course Course 12/17/23 17:20 12/17/23 17:20 Orders, Labs, Meds: Lab Review 12/17/23 12/17/23 17:05 17:20 WBC 9.91 RBC 3.33 L Hgb 10.1 L Hct 31.1 L MCV 93.4 MCH 30.3 MCHC 32.5 RDW Coeff of Sri 19.3 H Plt Count 239 Immature Gran % (Auto) 0.2 Neut % (Auto) 69.0 Lymph % (Auto) 14.0 [place] % (Auto) 10.5 H Eos % (Auto) 6.0 Baso % (Auto) 0.3 Neut # (Auto) 6.8 Lymph # (Auto) 1.4 [place] # (Auto) 1.0 Eos # (Auto) 0.6 Baso # (Auto) 0.0 Immature Gran # (Auto) 0.0 Plt Morphology Comment Hypochromasia 2+ Anisocytosis 3+ Microcytosis 2+ Acanthocytes (Spur) 2+ Sodium 135.9 Potassium 3.90 Chloride 105.5 Carbon Dioxide 24.1 Anion Gap 10.20 BUN 29.1 H Creatinine 1.21 H Estimated GFR (MDRD) 57.00 BUN/Creatinine Ratio 24.04 Glucose 98.5 Calcium 9.21 Magnesium 1.83 Total Bilirubin 0.95 AST 36.3 ALT 11.8 Alkaline Phosphatase 55.5 L Total Protein 7.54 Albumin 3.56 Globulin 3.98 Albumin/Globulin Ratio 0.89 Lipase 79.7 Urine Color Yellow Urine Clarity Clear Urine pH 5.[address] [place] 1.020 Urine Protein 2+ H Urine Glucose (UA) Negative Urine Ketones Negative Urine Blood Trace-intact H Urine Nitrite Negative Urine Bilirubin Negative Urine Urobilinogen 0.2 Ur Leukocyte Esterase Negative Urine Microscopic RBC 0-2 Ur Squamous Epith Cells Not Reportable Urine Mucus Trace Orders Category Date Time Status NPO REMINDER: IMAGING ONCE CARE 12/17/23 17:16 Completed CBC W/ AUTO DIFF Stat LAB 12/17/23 17:20 Completed CMP [COMPREHENSIVE METABOLIC PANEL] Stat LAB 12/17/23 17:20 Completed LIPASE Stat LAB 12/17/23 17:20 Completed MAGNESIUM Stat LAB 12/17/23 17:20 Completed RBC MORPHOLOGY Stat LAB 12/17/23 17:20 Completed ROTAVIRUS,STOOL Stat LAB 12/17/23 17:12 Ordered STOOL CULTURE Stat LAB 12/17/23 Uncollected URINALYSIS C & S IF INDICATED Stat LAB 12/17/23 17:05 Completed Sodium Chloride 0.9% [Sodium Chloride] 1,000 ml Meds 12/17/23 17:12 Active IV 250 mls/hr CT ABDOMEN/PELVIS W CONTRAST Stat RADS 12/17/23 17:16 Completed Medications Generic Name Dose Route Start Last Admin Trade Name Freq PRN Reason Stop Dose Admin Sodium Chloride 1,000 mls @ 250 mls/hr 12/17/23 17:12 12/17/23 17:17 Sodium Chloride IV 12/17/23 21:11 250 mls/hr .Q4H ONE Administration Vital Signs: Temp Pulse Resp BP Pulse Ox 12/17/23 16:28 98.3 F 60 16 150/72 H 97 Discharge Plan Discharge Patient Disposition: PLACED OBSERVATION Discharge Problem: Intractable diarrhea Prescriptions: No Action furosemide 20 mg tablet 20 mg PO DAILY omega 2-ocb-wis-fish oil [Fish Oil] 300-1,000 mg capsule 1 cap PO DAILY aspirin [Lor Low Dose Aspirin] 81 mg tablet,delayed release (DR/EC) 81 mg PO DAILY levothyroxine [Euthyrox] 112 mcg tablet 112 mcg PO DAILY loratadine [Allerclear] 10 mg tablet 10 mg PO DAILY atorvastatin 80 mg tablet 40 mg PO BEDTIME allopurinol 100 mg tablet 100 mg PO DAILY amlodipine 10 mg tablet 5 mg PO DAILY isosorbide mononitrate 30 mg tablet extended release 24 hr 30 mg PO DAILY hydralazine 100 mg tablet 100 mg PO BID magnesium oxide 400 mg magnesium capsule 400 mg PO DAILY nitroglycerin 0.4 mg tablet, sublingual 0.4 mg sublingual Q5-15M PRN (Reason: chest pain) Rx Instructions: do not exceed 3 doses per episode Saccharomyces boulardii [Florastor] 250 mg Capsule 250 mg PO BID Qty: 20 0RF ondansetron 4 mg tablet,disintegrating 4 mg PO Q6H PRN (Reason: nausea and vomiting) Qty: 30 0RF Did you review [place] PILLOW[employer] for ALL controlled substances?: No ED Provider: JUSTINE AMAYA Condition: Stable Physician Progress Note: This history obtained from patient was his son who has a history of COPD, coronary artery disease, complains of watery diarrhea the past 2 weeks associated with lower mid and left lower abdominal pains, the past 5 days. Denies nausea, vomiting, urinary symptoms, fever. Laboratory data reviewed And are all within normal limits with exception of hemoglobin of 10 hematocrit 31 BMP is normal except for BUN of 29 creatinine 1.2. The abdominal pelvic CT scan with intravenous contrast rotation per radiologist is consistent with multiple renal cysts there is no hydronephrosis. There is severe atherosclerotic disease again noted. There is a normal appendix there is a nonobstructive bowel gas pattern. Prostate is mildly prominent. There is no ascites or free air. There is small fatty bilateral inguinal hernias. Differential diagnosis: 1) intractable diarrhea Discussed with hospitalist Hussain Maciel at 1950 for observation []
[2023-12-17] MEDS: SODIUM CHLORIDE 1,000 ML IV ONE (17:17)
[2023-12-17 17:28] LABS: BASOPHILS % (AUTO) 0.3 % (0.0-3.0); EOSINOPHILS # (AUTO) 0.6 K/ul (0.0-0.7); HEMATOCRIT 31.1 % (42.0-52.0); HEMOGLOBIN 10.1 g/dl (14.0-18.0); IMMATURE GRANULOCYTE % (AUTO) 0.2 % (0.0-5.0); LYMPHOCYTES # (AUTO) 1.4 K/uL (0.60-3.4); MEAN CORPUSCULAR HEMOGLOBIN 30.3 pg (27.0-31.0); MEAN CORPUSCULAR HGB CONC 32.5 (31.8-35.4); MEAN CORPUSCULAR VOLUME 93.4 fl (80.0-94.0); MONOCYTES % (AUTO) 10.5 (0-10); NEUTROPHILS # (AUTO) 6.8 K/ul (2.0-6.9); PLATELET COUNT 239 10^3/uL (140-440); RDW COEFFICIENT OF VARIATION 19.3 % (11.6-14.8); RED BLOOD COUNT 3.33 10^6/ul (4.70-6.10); WHITE BLOOD COUNT 9.91 K/ul (4.2-10.2)
[2023-12-17 17:39] LABS: ALANINE AMINOTRANSFERASE 11.8 U/L (0-50); ALBUMIN 3.56 g/dL (3.5-5.0); ALKALINE PHOSPHATASE 55.5 U/L (56-119); ASPARTATE AMINO TRANSFERASE 36.3 U/L (17-59); BILIRUBIN,TOTAL 0.95 mg/dL (0.2-1.3); BLOOD UREA NITROGEN 29.1 mg/dL (9-20); CALCIUM 9.21 mg/dL (8.4-10.2); CARBON DIOXIDE 24.1 mmol/L (22-30.0); CHLORIDE 105.5 mmol/L (98-107); CREATININE 1.21 mg/dL (0.60-1.10); GLUCOSE 98.5 mg/dL (74-106); LIPASE 79.7 U/L (23-300); MAGNESIUM 1.83 mg/dL (1.6-2.3); POTASSIUM 3.9 mmol/L (3.5-5.1); SODIUM 135.9 mmol/L (134.5-145); TOTAL PROTEIN 7.54 g/dL (6.3-8.2)
[2023-12-17 17:46] LABS: ACANTHOCYTES 2+ (NOT PRESENT); ANISOCYTOSIS 3+ (NOT PRESENT); HYPOCHROMASIA 2+ (NOT PRESENT); MICROCYTOSIS 2+ (NOT PRESENT)
[2023-12-17 17:53] LABS: BILIRUBIN,URINE Negative (NEGATIVE); CLARITY,URINE Clear (CLEAR); COLOR,URINE Yellow (YELLOW); GLUCOSE, URINE (UA) Negative (NEGATIVE); KETONES,URINE Negative (NEGATIVE); LEUKOCYTE ESTERASE ,URINE Negative (NEGATIVE); NITRITE,URINE Negative (NEGATIVE); PH,URINE 5.5 (5-9); PROTEIN,URINE 2+ (NEGATIVE); URINE, BLOOD Trace-intact (NEGATIVE); UROBILINOGEN,URINE 0.2 (0.2)
[2023-12-17 17:57] LABS: MUCUS,URINE TRACE (NOT PRESENT); URINE RBC, MICROSCOPIC 0-2 (0-2)
--- NOTE | 2023-12-17 19:01 | CT ---
EXAM: CT ABDOMEN AND PELVIS HISTORY: Lower abdominal pain, chronic diarrhea TECHNIQUE: CT abdomen and pelvis with intravenous contrast. Images were reconstructed using 5 mm se ction thickness. Reformations were prepared. COMPARISON: 10/16/2023 FINDINGS: Liver is within normal limits. Gallbladder is absent. No biliary dilatation or pancreati c pathology. Spleen and adrenal glands are within normal limits. Redemonstration of multiple renal cysts. No hydronephrosis. Severe atherosclerotic disease is again noted. Unremarkable stomach. Th ere is a 2.7 cm proximal duodenal diverticulum without signs of leakage or inflammation. Normal appe ndix. Nonobstructive bowel gas pattern. Prostate is mildly prominent. Urinary bladder is unremarka ble. There is no ascites or free air. Small fatty bilateral inguinal hernias without complication s uggested. The bones reveal moderately severe degenerative changes of the spine. Lung bases are molly r. IMPRESSION: 1. Multiple renal cysts. No hydronephrosis. 2. Severe atherosclerotic disease is again noted. 3. Normal appendix. Nonobstructive bowel gas pattern. 4. Prostate is mildly prominent. Urinary bladder is unremarkable. There is no ascites or free air. 5. Small fatty bilateral inguinal hernias without complication suggested. - - - - - All CT scans are performed using dose optimization techniques as appropriate to the performed exam an d include at least one of the following: Automated exposure control, adjustment of the mA and/or kV according t o size, and the use of iterative reconstruction technique.
[2023-12-17] MEDS ORDERED: TYLENOL PO PRN (19:53)
[2023-12-17] MEDS ORDERED: ZOFRAN 4 MG/2 ML IVP PRN (19:53)
[2023-12-17 20:23] LABS: SARS COV-2 RNA RAPID NAAT NEGATIVE (NEGATIVE)
[2023-12-17 21:28] VITALS: BMI 18.8
[2023-12-17] MEDS: HYDRALAZINE HCL IVP PRN (22:38)
[2023-12-18 05:14] VITALS: PULSE 54
[2023-12-18 05:38] LABS: BASOPHILS % (AUTO) 0.4 % (0.0-3.0); EOSINOPHILS # (AUTO) 0.7 K/ul (0.0-0.7); EOSINOPHILS % (AUTO) 6.5 % (0.0-7.0); HEMATOCRIT 32.3 % (42.0-52.0); HEMOGLOBIN 10.7 g/dl (14.0-18.0); IMMATURE GRANULOCYTE % (AUTO) 0.4 % (0.0-5.0); LYMPHOCYTES # (AUTO) 1.6 K/uL (0.60-3.4); LYMPHOCYTES % (AUTO) 15.6 (10.0-50.0); MEAN CORPUSCULAR HGB CONC 33.1 (31.8-35.4); MEAN CORPUSCULAR VOLUME 90.5 fl (80.0-94.0); MONOCYTES % (AUTO) 10.1 (0-10); NEUTROPHILS # (AUTO) 6.7 K/ul (2.0-6.9); PLATELET COUNT 253 10^3/uL (140-440); RDW COEFFICIENT OF VARIATION 19.1 % (11.6-14.8); RED BLOOD COUNT 3.57 10^6/ul (4.70-6.10); WHITE BLOOD COUNT 10.04 K/ul (4.2-10.2)
[2023-12-18 05:54] LABS: ALANINE AMINOTRANSFERASE 11.4 U/L (0-50); ALBUMIN 3.33 g/dL (3.5-5.0); ALKALINE PHOSPHATASE 63.3 U/L (56-119); ASPARTATE AMINO TRANSFERASE 44.4 U/L (17-59); BILIRUBIN,TOTAL 1.15 mg/dL (0.2-1.3); BLOOD UREA NITROGEN 22.8 mg/dL (9-20); CALCIUM 9.16 mg/dL (8.4-10.2); CARBON DIOXIDE 25.3 mmol/L (22-30.0); CHLORIDE 105.9 mmol/L (98-107); CREATININE 1.16 mg/dL (0.60-1.10); GLUCOSE 104.9 mg/dL (74-106); POTASSIUM 3.47 mmol/L (3.5-5.1); SODIUM 135.6 mmol/L (134.5-145); TOTAL PROTEIN 7.16 g/dL (6.3-8.2)
[2023-12-18 07:52] VITALS: RESP 20
[2023-12-18 09:27] VITALS: BP 179/98; TEMP 98.2
[2023-12-18] MEDS: K-DUR PO ONE (10:18)
--- NOTE | 2023-12-18 11:37 | PCM.SS ---
Provider Provider: MENDY NOEL, [facility] Admission Date Admission Date: 12/17/23 Discharge Date Discharge Date: 12/18/23 Primary Care Physician Primary Care Physician: JAZZMINE MACIEL Chief Complaint Reason For Visit: INTRACTABLE DIARHEA History of Present Illness History of Present Illness: Admitted 12/17/23 20:17, this 83 year old /WHITE/M presented to the ER with diarrhea. Patient reports that he has had at least 3 episodes of watery diarrhea over the last week. Denies any blood or bile noted. Denies fever or urinary symptoms. Denies sick contacts. Reports crampy lower abdominal pain but that is now resolved. Has not had any further diarrhea episodes since admission. Had one large formed BM earlier this am. Stool culture and rotavirus ordered in ER but unable to collect til this am. Admitted for observation for intractable diarrhea. [facility] Medical History History of aortic stenosis Z86.79 - Personal history of other diseases of the circulatory system (ICD- 10) Bilateral carotid artery disease I77.9 - Disorder of arteries and arterioles, unspecified (ICD-10) Depression F32.A - Depression, unspecified (ICD-10) Anxiety F41.9 - Anxiety disorder, unspecified (ICD-10) COPD (chronic obstructive pulmonary disease) J44.9 - Chronic obstructive pulmonary disease, unspecified (ICD-10) Hyperlipidemia E78.5 - Hyperlipidemia, unspecified (ICD-10) Anemia D64.9 - Anemia, unspecified (ICD-10) Hypothyroidism E03.9 - Hypothyroidism, unspecified (ICD-10) Diabetes E11.9 - Type 2 diabetes mellitus without complications (ICD-10) Myocardial infarct March 2023 I21.9 - Acute myocardial infarction, unspecified (ICD-10) Hypertension I10 - Essential (primary) hypertension (ICD-10) Surgical History History of coronary artery stent placement Z95.5 - Presence of coronary angioplasty implant and graft (ICD-10) Status post spinal disc removal Z98.890 - Other specified postprocedural states (ICD-10) 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 - Acquired absence of other parts of urinary tract (ICD-10) Family History Other No known health problems Social History Smoking and tobacco status: Current every day smoker Tobacco type: cigarettes Smoking packs per day: 1 Smoking cigarettes per day: 20.0 Quit status: considering quitting Substance use type: does not use Special elio needs: No Agree to transfusion: Yes Adopted: No Caregiver/support person: Yes Foster care: No Household members: children Housing: house Marital status: W / Lives independently: Yes Daycare: no daycare Number of children: 1 Financial difficulty paying for basics: not very hard service: Yes [facility]: No Current occupational status: retired History of recent travel: No Do you think of yourself as: straight/heterosexual Current gender identity: male Seatbelt use: always Helmet use: Yes Drives intoxicated or rides with intoxicated courtesy van driver: No Medications Mecications: Medications at Discharge (Home Meds & RX) allopurinol 100 mg tablet 100 mg PO DAILY 06/25/23 amlodipine 10 mg tablet 5 mg PO DAILY 06/25/23 aspirin 81 mg tablet,delayed release (Lor Low Dose Aspirin) 81 mg PO DAILY 06/25/23 atorvastatin 80 mg tablet 40 mg PO BEDTIME 06/25/23 hydralazine 100 mg tablet 100 mg PO BID 06/25/23 isosorbide mononitrate 30 mg tablet,extended release 24 hr 30 mg PO DAILY 06/25/23 levothyroxine 112 mcg tablet (Euthyrox) 112 mcg PO DAILY 06/25/23 loratadine 10 mg tablet (Allerclear) 10 mg PO DAILY 06/25/23 magnesium oxide 400 mg PO DAILY 06/25/23 nitroglycerin 0.4 mg sublingual tablet 0.4 mg sublingual Q5-15M PRN chest pain 06/25/23 omega 5-rob-rtz-fish oil 300 mg-1,000 mg capsule (Fish Oil) 1 cap PO DAILY 06/25/23 furosemide 20 mg tablet 20 mg PO DAILY 08/27/23 Saccharomyces boulardii 250 mg capsule (Florastor) 250 mg PO BID #20 caps 10/11/23 ondansetron 4 mg disintegrating tablet 4 mg PO Q6H PRN nausea and vomiting #30 tabs 10/11/23 Allergies Allergies Allergy/AdvReac Type Severity Reaction Status Date / Time No Known Allergies Allergy Verified 10/14/23 14:59 Review of Systems Constitutional: Reports No symptoms Head: Reports Normocephalic Eyes: Reports No symptoms Ears: Reports No symptoms Nose: Reports No symptoms Mouth: Reports No symptoms Throat: Reports No symptoms Cardiovascular: Reports No symptoms Respiratory: Reports No symptoms Gastrointestinal: Reports Diarrhea Genitourinary: Reports No Symptoms Musculoskeletal: Reports No symptoms Endocrine: Reports No symptoms Hematology: Reports No symptoms Immunology: Reports No symptoms Neurological: Reports No symptoms Psychiatric: Reports No symptoms Physical Examination Appearance: Positive No Apparent Distress, Alert and Oriented x3 and Thin Head: Positive Normocephalic Eyes: Positive KINSEY ENT: Positive Ears Normal, Nares Normal and Oropharynx Normal Neck: Positive Supple and Non-Tender Heart: Positive RRR and No Murmurs Respiratory: Positive Airway patent, Breath Sounds Clear, Bilaterally, Breath Sounds Equal and Respirations Nonlabored GI/: Positive Soft, Nontender, Bowel sounds normal, No Distention, No masses and No Organomegaly Extremities: Positive Pedal Pulses Palpable Bilaterally Neurological: Positive Sensation Intact, Motor Intact, Alert and Oriented Psychiatric: Positive Normal Judgement, Normal Insight, Affect Appropriate and Mood Appropriate Vital Signs (Last 4 Hours) Vital Signs Last 4 Hours: Vital Signs: Last 4 Hours 12/18/23 07:45 12/18/23 07:57 12/18/23 08:58 Temperature Temperature Source Pulse Rate Respiratory Rate 20 Blood Pressure Blood Pressure Mean Blood Pressure Location Blood Pressure Position O2 Sat by Pulse Oximetry Oxygen Delivery Method Room Air Room Air Room Air 12/18/23 09:27 12/18/23 09:57 12/18/23 10:43 Temperature 98.2 F Temperature Source Tympanic Pulse Rate 54 L Respiratory Rate 20 Blood Pressure 179/98 H Blood Pressure Mean 125 Blood Pressure Location Right Arm Blood Pressure Position Supine O2 Sat by Pulse Oximetry 98 Oxygen Delivery Method Room Air Room Air Room Air Labs This Visit Labs This Visit: Labs This Visit 12/17/23 12/17/23 12/17/23 17:05 17:20 20:00 WBC 9.91 RBC 3.33 L Hgb 10.1 L Hct 31.1 L MCV 93.4 MCH 30.3 MCHC 32.5 RDW Coeff of Sri 19.3 H Plt Count 239 Immature Gran % (Auto) 0.2 Neut % (Auto) 69.0 Lymph % (Auto) 14.0 [place] % (Auto) 10.5 H Eos % (Auto) 6.0 Baso % (Auto) 0.3 Neut # (Auto) 6.8 Lymph # (Auto) 1.4 [place] # (Auto) 1.0 Eos # (Auto) 0.6 Baso # (Auto) 0.0 Immature Gran # (Auto) 0.0 Plt Morphology Comment Hypochromasia 2+ Anisocytosis 3+ Microcytosis 2+ Acanthocytes (Spur) 2+ Sodium 135.9 Potassium 3.90 Chloride 105.5 Carbon Dioxide 24.1 Anion Gap 10.20 BUN 29.1 H Creatinine 1.21 H Estimated GFR (MDRD) 57.00 BUN/Creatinine Ratio 24.04 Glucose 98.5 Calcium 9.21 Magnesium 1.83 Total Bilirubin 0.95 AST 36.3 ALT 11.8 Alkaline Phosphatase 55.5 L Total Protein 7.54 Albumin 3.56 Globulin 3.98 Albumin/Globulin Ratio 0.89 Lipase 79.7 Urine Color Yellow Urine Clarity Clear Urine pH 5.5 Ur Specific [place] 1.020 Urine Protein 2+ H Urine Glucose (UA) Negative Urine Ketones Negative Urine Blood Trace-intact H Urine Nitrite Negative Urine Bilirubin Negative Urine Urobilinogen 0.2 Ur Leukocyte Esterase Negative Urine Microscopic RBC 0-2 Ur Squamous Epith Cells Not Reportable Urine Mucus Trace SARS CoV-2 RNA Rapid JESICA Negative 12/18/23 05:30 WBC 10.04 RBC 3.57 L Hgb 10.7 L Hct 32.3 L MCV 90.5 MCH 30.0 MCHC 33.1 RDW Coeff of Sri 19.1 H Plt Count 253 Immature Gran % (Auto) 0.4 Neut % (Auto) 67.0 Lymph % (Auto) 15.6 [place] % (Auto) 10.1 H Eos % (Auto) 6.5 Baso % (Auto) 0.4 Neut # (Auto) 6.7 Lymph # (Auto) 1.6 [place] # (Auto) 1.0 Eos # (Auto) 0.7 Baso # (Auto) 0.0 Immature Gran # (Auto) 0.0 Plt Morphology Comment Hypochromasia Anisocytosis Microcytosis Acanthocytes (Spur) Sodium 135.6 Potassium 3.47 L Chloride 105.9 Carbon Dioxide 25.3 Anion Gap 7.87 BUN 22.8 H Creatinine 1.16 H Estimated GFR (MDRD) 60.00 BUN/Creatinine Ratio 19.65 Glucose 104.9 Calcium 9.16 Magnesium Total Bilirubin 1.15 AST 44.4 ALT 11.4 Alkaline Phosphatase 63.3 Total Protein 7.16 Albumin 3.33 L Globulin 3.83 Albumin/Globulin Ratio 0.86 Lipase Urine Color Urine Clarity Urine pH Ur Specific [place] Urine Protein Urine Glucose (UA) Urine Ketones Urine Blood Urine Nitrite Urine Bilirubin Urine Urobilinogen Ur Leukocyte Esterase Urine Microscopic RBC Ur Squamous Epith Cells Urine Mucus SARS CoV-2 RNA Rapid JESICA Microbiology This Visit 12/18/23 08:34 Stool Stool Culture - Preliminary Imaging Imaging: EXAM: CT ABDOMEN AND PELVIS HISTORY: Lower abdominal pain, chronic diarrhea TECHNIQUE: CT abdomen and pelvis with intravenous contrast. Images were re constructed using 5 mm section thickness. Reformations were prepared. COMPARISON: 10/16/2023 FINDINGS: Liver is within normal limits. Gallbladder is absent. No biliary dilatation or pancreatic pathology. Spleen and adrenal glands are within normal limits. Redemonstration of multiple renal cysts. No hydronephrosis. Severe atherosclerotic disease is again noted. Unremarkable stomach. There is a 2.7 cm proximal duodenal diverticulum without signs of leakage or inflammation. Normal appendix. Nonobstructive bowel gas pattern. Prostate is mildly prominent. Urinary bladder is unremarkable. There is no ascites or free air. Small fatty bilateral inguinal hernias without complication suggested. The bones reveal moderately severe degenerative changes of the spine. Lung bases are clear. IMPRESSION: 1. Multiple renal cysts. No hydronephrosis. 2. Severe atherosclerotic disease is again noted. 3. Normal appendix. Nonobstructive bowel gas pattern. 4. Prostate is mildly prominent. Urinary bladder is unremarkable. There is no ascites or free air. 5. Small fatty bilateral inguinal hernias without complication suggested. Review Review Statement: I have independently reviewed and interpreted the labs/EKGs/imaging that were ordered by the ER provider. I have reviewed all outside records that are available currently in our EMR including imaging/notes/labs from previous visits. Plan Reccomendations/Plan: 1. Campylobacter enteritis - diagnosed with stool culture, rest pending, will contact patient if further organisms present; treating with 3 days azithromycin due to persistence of symptoms, holding all antidiarrhea medications due to active infection, tolerating oral intake No changes to home medications. Holding todays dose of lasix and resume tomorrow. Additional Planning: Case discussed with ED Physician, Dr. Vasquez. DVT Prophylaxis: Ambulation Smoking Cessation: 3-10 minutes spent discussing smoking cessation. Disposition: Admit to: Med/Surg Observation Discussed Plan of Care with Dr. Iva Bay. If patient discharged with Left Ventricular Systolic Dysfunction: NA Discharged with a beta perry? [] If no, why not? [] Discharged with an carlos/arb? [] If no, why not? [] DIAGNOSIS: Campylobacter enteritis DIET: Regular ACTIVITY: As tolerated FOLLOW-UP: PCP next week MEDICATIONS: Azithromycin 500 mg daily x 2 days Review With Patient Reviewed with Patient and Family: Patient and family have been counseled on condition and care plan and have no immediate questions. I have personally discussed and reviewed the patient's visit/current labs/imaging/decision making with Dr. Jacy Bay, my supervising attending. Total number of minutes spent with patient 85 min. More than 50% of the time spent with this patient was devoted to counseling and coordination of care. Time of Admission:12/17/23 20:17 Time of Discharge: 12/18/23 1200 Discharge Plan Discharge Discharge Orders: Discharge Patient (ONCE); Ordered 12/18/23 Ordered By: PINEDA MACIEL Activity Restrictions/Additional Instructions: DIAGNOSIS: Campylobacter Enteritis DIET: Regular ACTIVITY: As tolerated FOLLOW-UP: PCP next week MEDICATIONS: Azithromycin 500 mg daily x 2 days Instructions: Food Poisoning (GEN) Patient Disposition: HOME WITH FAMILY CARE Prescriptions: New azithromycin 500 mg tablet 500 mg PO DAILY Qty: 2 0RF Continued furosemide 20 mg tablet 20 mg PO DAILY omega 0-fub-gug-fish oil [Fish Oil] 300-1,000 mg capsule 1 cap PO DAILY aspirin [Lor Low Dose Aspirin] 81 mg tablet,delayed release (DR/EC) 81 mg PO DAILY levothyroxine [Euthyrox] 112 mcg tablet 112 mcg PO DAILY loratadine [Allerclear] 10 mg tablet 10 mg PO DAILY atorvastatin 80 mg tablet 40 mg PO BEDTIME allopurinol 100 mg tablet 100 mg PO DAILY amlodipine 10 mg tablet 5 mg PO DAILY isosorbide mononitrate 30 mg tablet extended release 24 hr 30 mg PO DAILY magnesium oxide 400 mg magnesium capsule 400 mg PO DAILY nitroglycerin 0.4 mg tablet, sublingual 0.4 mg sublingual Q5-15M PRN (Reason: chest pain) Rx Instructions: do not exceed 3 doses per episode Saccharomyces boulardii [Florastor] 250 mg Capsule 250 mg PO BID Qty: 20 0RF ondansetron 4 mg tablet,disintegrating 4 mg PO Q6H PRN (Reason: nausea and vomiting) Qty: 30 0RF Discontinued hydralazine 100 mg tablet 100 mg PO BID Did you review [place] [employer] for ALL controlled substances?: No Discussed opioids are addictive and Narcan is available by prescription or from pharmacy.: No Condition: Stable
[2023-12-18] MEDS: NORVASC PO SCH (12:13)
[2023-12-18] MEDS: ZITHROMAX PO ONE (12:14)
[2023-12-18] MEDS: ASPIRIN EC PO SCH (12:14)
[2023-12-18] MEDS: PROTONIX PO SCH (12:14)
[2023-12-18] MEDS: FLOMAX PO SCH (12:15)
[2023-12-18] MEDS: FLORASTOR PO SCH (12:15)
[2023-12-18] MEDS: CELEXA PO SCH (12:15)
[2023-12-18] MEDS: SYNTHROID PO SCH (12:16)
[2023-12-18] MEDS: COZAAR PO SCH (12:16)
[2023-12-18] MEDS: IMDUR PO SCH (12:16)
== END 2023-12-18 12:40 | disposition home or self-care (01) ==
LOC: ED 16:22 → MEDSURG B 16:22
PROVIDERS: ADMIT Hospitalist; ATTEND Nurse Practitioner Family

== ENCOUNTER 2024-05-02 14:43 | Inpatient (IN) ==
--- NOTE | 2024-05-02 14:55 | ED.PDOC ---
General ED Provider: Dr. JUSTINE AMAYA MD Chief Complaint: Abdominal Pain Stated Complaint: Patient with a history of chronic right hip pain, hypertension, congestive heart failure, and atrial fibrillation evaluate emergency room yesterday for chronic right hip pain with a unremarkable abdominal pelvic CT scan with contrast consistent with bilateral nephrolithiasis and renal cyst. Patient now complains of persistent right hip pain also complains of a productive cough yellow-green sputum. Associate with shortness of breath. Denies chest pain, diaphoresis, palpitations, nausea, vomiting, diarrhea. Time Seen by Provider: 05/02/24 14:50 Mode of Arrival: Ambulance Information Source: Patient Exam Limitations: Clinical condition Primary Care Provider: JAZZMINE MACIEL Nursing and Triage Documentation Reviewed and Agree: Yes What is Opioid Naive?: *Opioid Naive implies the patient is not already taking opioids or not chronically receiving opioids on a daily basis. *PRN dosing is not "usually" associated with tolerance. *Patients are at higher risk of over-sedation and aspiration. What is Opioid Tolerant?: *Opioid Tolerance implies less than the expected response to an opioid. *Acquired tolerance is defined by the patient taking 60mg of oral morphine daily (or equianalgesic dose of another opioid) for 1 week or more. *Often associated with chronic pain. *May take more than usual dose to achieve desired pain control. Review of Systems Review Of Systems Constitutional: Reports Weakness Eyes: Reports No symptoms Ears, Nose, Mouth, Throat: Reports No symptoms and Ear pain Respiratory: Reports Shortness of Breath Cardiac: Reports No symptoms GI: Reports Abdominal pain : Reports No symptoms Musculoskeletal: Reports No symptoms Skin: Reports No symptoms Neurological: Reports No symptoms Hematologic/Lymphatic: Reports No symptoms All Other Systems: Reviewed and Negative [facility] Medical History History of aortic stenosis Z86.79 - Personal history of other diseases of the circulatory system (ICD- 10) Bilateral carotid artery disease I77.9 - Disorder of arteries and arterioles, unspecified (ICD-10) Depression F32.A - Depression, unspecified (ICD-10) Anxiety F41.9 - Anxiety disorder, unspecified (ICD-10) COPD (chronic obstructive pulmonary disease) J44.9 - Chronic obstructive pulmonary disease, unspecified (ICD-10) Hyperlipidemia E78.5 - Hyperlipidemia, unspecified (ICD-10) Anemia D64.9 - Anemia, unspecified (ICD-10) Hypothyroidism E03.9 - Hypothyroidism, unspecified (ICD-10) Diabetes E11.9 - Type 2 diabetes mellitus without complications (ICD-10) Myocardial infarct March 2023 I21.9 - Acute myocardial infarction, unspecified (ICD-10) Hypertension I10 - Essential (primary) hypertension (ICD-10) Family History Other No known health problems Social History Smoking and tobacco status: Current every day smoker Tobacco type: cigarettes Smoking packs per day: 1 Smoking cigarettes per day: 20.0 Quit status: considering quitting Substance use type: does not use Special elio needs: No Agree to transfusion: Yes Adopted: No Caregiver/support person: Yes Foster care: No Household members: children Housing: house Marital status: W / Lives independently: Yes Daycare: no daycare Number of children: 1 Financial difficulty paying for basics: not very hard service: Yes longterm: No Current occupational status: retired History of recent travel: No Do you think of yourself as: straight/heterosexual Current gender identity: male Seatbelt use: always Helmet use: Yes Drives intoxicated or rides with intoxicated bus driver: No Surgical History History of coronary artery stent placement Z95.5 - Presence of coronary angioplasty implant and graft (ICD-10) Status post spinal disc removal Z98.890 - Other specified postprocedural states (ICD-10) 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 - Acquired absence of other parts of urinary tract (ICD-10) Physical Exam Physical Exam Appearance: Reports Ill-appearing Ill-appearing: Mild Pain Distress: None Eyes: Reports KINSEY, EOMI and Conjunctiva clear ENT: Reports Ears normal, Nose normal and Oropharynx normal Neck: Supple Respiratory: Reports Airway patent and Breath sounds clear Cardiovascular: Reports RRR, Pulses normal and No rub GI/: Reports Soft, No masses, Bowel sounds normal and Tender (There is suprapubic and bilateral lower quadrant tenderness noted. There is no guarding there is rebound tenderness noted.) Musculoskeletal: Reports Normal strength, No edema, No calf tenderness, Limited ROM (Limited range of motion of the right hip passive range of motion for his internal/external rotation leads to marked pain in the hip there is tenderness over the inguinal area there is no palpable hernias noted. There is no greater trochanter swelling, crepitus or ecchymosis noted. Bilateral pedis ) and Other ( there is no pretibial edema noted.) Skin: Reports Warm and Dry Neurological: Reports Sensation intact, Motor intact, Reflexes intact, Cranial nerves intact, Alert and Oriented Psychiatric: Reports Affect appropriate and Mood appropriate Course Course 05/02/24 15:21 05/02/24 15:21 Orders, Labs, Meds: Lab Review 05/02/24 05/02/24 05/02/24 15:00 15:17 15:21 WBC 14.41 H RBC 3.31 L Hgb 9.9 L Hct 30.8 L MCV 93.1 MCH 29.9 MCHC 32.1 RDW Coeff of Sri 18.7 H Plt Count 264 Immature Gran % (Auto) 0.6 Neut % (Auto) 79.0 H Lymph % (Auto) 9.4 L Woodson % (Auto) 8.8 Eos % (Auto) 1.9 Baso % (Auto) 0.3 Neut # (Auto) 11.4 H Lymph # (Auto) 1.4 Woodson # (Auto) 1.3 Eos # (Auto) 0.3 Baso # (Auto) 0.0 Immature Gran # (Auto) 0.1 PT 10.4 INR 1.00 Puncture Site [place] [employer] Excess 1.2 O2 Saturation 88.7 L ABG pH 7.40 ABG pCO2 42.0 ABG pO2 56.0 L* ABG HCO3 26.0 ABG Total CO2 27.3 H Ralph Test N/ Hemoglobin 1.3 Oxyhemoglobin 87.3 L Carboxyhemoglobin 4.8 H Total Hemoglobin 10.6 L Sodium 134.8 Potassium 3.95 Chloride 103.1 Carbon Dioxide 23.9 D Anion Gap 11.75 BUN 41.9 H Creatinine 1.80 H Estimated GFR (MDRD) 36.00 BUN/Creatinine Ratio 23.27 Glucose 173.6 H Calcium 9.12 Total Bilirubin 0.83 AST 35.0 ALT 10.7 Alkaline Phosphatase 91.3 Troponin I < 0.012 NT-Pro-B Natriuret Pep 2940 H Total Protein 7.26 Albumin 3.81 Globulin 3.45 Albumin/Globulin Ratio 1.10 Lipase 32.4 Influ A Molecular Assay Negative by naat Influ B Molecular Assay Negative by naat RSV Antigen Negative by naat SARS CoV-2 RNA Rapid JESICA Negative Orders Category Date Time Status ABG DRAW REQUEST Stat CARDIO 05/02/24 14:55 Completed EKG-(ED ONLY) Stat CARDIO 05/02/24 14:55 Completed NEBULIZER TREATMENT Stat CARDIO 05/02/24 14:55 Completed NPO REMINDER: IMAGING ONCE CARE 05/02/24 14:58 Completed Foam Gun Operator [ED HAND II TUBE BENDER APPLIED] .ONCE EMERGENCY 05/02/24 15:04 Active ABG COOX Stat LAB 05/02/24 15:00 Completed BLOOD CULTURE (ED ONLY) Stat LAB 05/02/24 15:21 Received CBC W/ AUTO DIFF Stat LAB 05/02/24 15:21 Completed CMP [COMPREHENSIVE METABOLIC PANEL] Stat LAB 05/02/24 15:21 Completed COVID [SARS COV-2 RNA RAPID JESICA] Stat LAB 05/02/24 15:17 Completed FLU A & B MOLECULAR [FLU A/B MOLECULAR] Stat LAB 05/02/24 15:17 Completed LIPASE Stat LAB 05/02/24 15:21 Completed NT-PROBNP(ED) Stat LAB 05/02/24 15:21 Completed PT WITH INR Stat LAB 05/02/24 15:21 Completed RSV Stat LAB 05/02/24 15:17 Completed TROPONIN I Stat LAB 05/02/24 15:21 Completed URINALYSIS C & S IF INDICATED Stat LAB 05/02/24 15:00 Uncollected Ceftriaxone/D5w 1 gm Premix [Rocephin 1 gm/50 ml D5w] Meds 05/02/24 15:10 Discontinued 1 gm in 50 ml IV ONCE Clonidine HCl [Catapres] Meds 05/02/24 15:04 Discontinued 0.2 mg PO ONCE ONE Hydralazine HCl Meds 05/02/24 16:15 Discontinued 10 mg IVP ONCE STA Hydralazine HCl Meds 05/02/24 17:29 Discontinued 20 mg IVP ONCE STA Ipratropium/Albuterol Neb [Duoneb] Meds 05/02/24 14:55 Discontinued 3 ml NEB ONCE STA Loperamide HCl [Imodium] Meds 05/02/24 16:17 Discontinued 4 mg PO ONCE STA Methylprednisolone Sod Succ/Pf [Solu-Medrol 125 mg] Meds 05/02/24 15:10 Discontinued 125 mg IVP ONCE ONE Morphine Sulfate [Morphine 2 mg/ml Syringe] Meds 05/02/24 14:56 Discontinued 2 mg IVP ONCE ONE Ondansetron HCl/Pf [Zofran 4 mg/2 ml] Meds 05/02/24 14:56 Discontinued 4 mg IVP ONCE STA Sodium Chloride 0.9% [Sodium Chloride] 500 ml Meds 05/02/24 14:56 Active IV 50 mls/hr CHEST, 1V AP ONLY Stat RADS 05/02/24 14:[address] ABDOMEN/PELVIS WO CONTRAST Stat RADS 05/02/24 16:14 Completed Medications Generic Name Dose Route Start Last Admin Trade Name Freq PRN Reason Stop Dose Admin Sodium Chloride 500 mls @ 50 mls/hr 05/02/24 14:56 05/02/24 16:37 Sodium Chloride IV 05/03/24 00:55 100 mls/hr .Q10H ONE Infusion Discontinued Medications Generic Name Dose Route Start Last Admin Trade Name Freq PRN Reason Stop Dose Admin Albuterol/Ipratropium 3 ml 05/02/24 14:55 05/02/24 15:10 Ipratropium/Albuterol Vial.Neb NEB 05/02/24 14:56 3 ml ONCE STA Administration Clonidine 0.2 mg 05/02/24 15:04 05/02/24 15:17 Clonidine Hcl 0.1 Mg Tablet PO 05/02/24 15:05 0.2 mg ONCE ONE Administration Hydralazine HCl 10 mg 05/02/24 16:15 05/02/24 16:47 Hydralazine Hcl 20 Mg/Ml Sdv IVP 05/02/24 16:16 10 mg ONCE STA Administration Hydralazine HCl 20 mg 05/02/24 17:29 Hydralazine Hcl 20 Mg/Ml Sdv IVP 05/02/24 17:30 ONCE STA CEFTRIAXONE/D5W 1 GM PREMIX 1 gm in 50 mls @ 100 mls/hr 05/02/24 15:10 05/02/24 15:34 Rocephin 1 Gm/50 Ml D5w IV 05/02/24 15:39 100 mls/hr ONCE ONE Administration Loperamide HCl 4 mg 05/02/24 16:17 05/02/24 16:46 Loperamide Hcl 2 Mg Tablet PO 05/02/24 16:18 4 mg ONCE STA Administration Methylprednisolone Sodium Succinate 125 mg 05/02/24 15:10 05/02/24 15:35 Methylprednisolone Sod Succ/Pf 125 Mg/2 Ml Vial IVP 05/02/24 15:11 125 mg ONCE ONE Administration Morphine Sulfate 2 mg 05/02/24 14:56 05/02/24 15:16 Morphine Sulfate 2 Mg/Ml Syringe IVP 05/02/24 14:57 2 mg ONCE ONE Administration Ondansetron HCl 4 mg 05/02/24 14:56 05/02/24 15:17 Ondansetron Hcl/Pf 4 Mg/2 Ml Sdv IVP 05/02/24 14:57 4 mg ONCE STA Administration Vital Signs: Temp Pulse Resp BP Pulse Ox 05/02/24 14:44 97.5 F L 63 24 H 198/68 H 92 L Discharge Plan Discharge Patient Disposition: PLACED OBSERVATION Discharge Problem: Acute exacerbation of chronic obstructive pulmonary disease, Acute diarrhea, Acute colitis Did you review [place] [employer] INST[employer]ER for ALL controlled substances?: Not Applicable ED Provider: JUSTINE AMAYA Condition: Stable Physician Progress Note: History obtained from the patient was a history of CHF COPD hypertension atrial fibrillation, chronic right hip pain. Patient was advised emergency room yesterday for right hip pain and an abdominal pelvic CT scan with intravenous contrast shows no acute intra-abdominal abnormality except for chronic kidney stones and renal cyst. The patient complains of having a productive cough yellow sputum today shortness of breath also complains of persistent suprapubic abdominal pain. Along with the right hip pain. Denies fever, chills, arthralgia, nausea, vomiting, diarrhea Patient given clonidine 0.2 mg for blood pressure 198/68 Followed by hydralazine 10 mg IV Pulse oximetry 91% on room air patient administered DuoNeb aerosol treatment Solu-Medrol 125 mg IV and after 2 sets of blood cultures Rocephin 1 g IV back On 2 L oxygen the pulse oximetry improved to 98%. Laboratory data reviewed CBC, CMP have been reviewed and follow for normal limits with exception of the GFR of 36, BUN 41 creatinine 1.8, white blood cell count of 14,000, BNP of 2940, troponin 0.012 Patient seen and evaluated emergency room 2 days ago with a CBC white blood cell count 11,000, GFR 52, and CT abdomen/pelvis IV contrast consistent with stable bilateral nonobstructing nephrolithiasis and multiple bilateral renal cysts Onset of marked watery diarrhea while emergency room Patient administered Imodium 4 mg orally 1533 EKG interpretation by myself consistent with normal sinus rhythm rate of 65 there is no ectopy noted. There is no ischemic changes noted. Portable chest x-ray interpretation radiologist consistent with chronic appearing interstitial changes but evidence of consolidation infiltrate Differential diagnosis: 1) acute exacerbation COPD 2) mild diffuse colitis 3) acute diarrhea Discussed with hospitalist Hussain Maciel at 1834 for observation
[2024-05-02] MEDS: DUONEB NEB STA (15:10)
[2024-05-02 15:15] LABS: ABG O2 HGB 87.3 % (95-100); BEecf 1.2 (-2.0-3.0); COHb 4.8 (0.5-1.5); MetHb 1.3 (0-1.5); TCO2 27.3 (19-24); sO2 88.7 % (94-98); tHb 10.6 g/dl (11.7-17.4)
[2024-05-02] MEDS: MORPHINE 2 MG/ML SYRINGE IVP ONE (15:16)
[2024-05-02] MEDS: CATAPRES PO ONE (15:17)
[2024-05-02] MEDS: ZOFRAN 4 MG/2 ML IVP STA (15:17)
[2024-05-02 15:29] LABS: BASOPHILS % (AUTO) 0.3 % (0.0-3.0); EOSINOPHILS # (AUTO) 0.3 K/ul (0.0-0.7); EOSINOPHILS % (AUTO) 1.9 % (0.0-7.0); HEMATOCRIT 30.8 % (42.0-52.0); HEMOGLOBIN 9.9 g/dl (14.0-18.0); IMMATURE GRANULOCYTE # (AUTO) 0.1 (0.0-1.0); IMMATURE GRANULOCYTE % (AUTO) 0.6 % (0.0-5.0); LYMPHOCYTES # (AUTO) 1.4 K/uL (0.60-3.4); LYMPHOCYTES % (AUTO) 9.4 (10.0-50.0); MEAN CORPUSCULAR HEMOGLOBIN 29.9 pg (27.0-31.0); MEAN CORPUSCULAR HGB CONC 32.1 (31.8-35.4); MEAN CORPUSCULAR VOLUME 93.1 fl (80.0-94.0); MONOCYTES # (AUTO) 1.3 K/uL (0.4-2.0); MONOCYTES % (AUTO) 8.8 (0-10); NEUTROPHILS # (AUTO) 11.4 K/ul (2.0-6.9); PLATELET COUNT 264 10^3/uL (140-440); RDW COEFFICIENT OF VARIATION 18.7 % (11.6-14.8); RED BLOOD COUNT 3.31 10^6/ul (4.70-6.10); WHITE BLOOD COUNT 14.41 K/ul (4.2-10.2)
[2024-05-02] MEDS: ROCEPHIN 1 GM/50 ML D5W 1 GM/50 ML BAG IV ONE (15:34)
[2024-05-02] MEDS: SODIUM CHLORIDE 500 ML IV ONE (15:34)
[2024-05-02] MEDS: SOLU-MEDROL 125 MG IVP ONE (15:35)
[2024-05-02 15:41] LABS: ALANINE AMINOTRANSFERASE 10.7 U/L (0-50); ALBUMIN 3.81 g/dL (3.5-5.0); ALKALINE PHOSPHATASE 91.3 U/L (56-119); BILIRUBIN,TOTAL 0.83 mg/dL (0.2-1.3); BLOOD UREA NITROGEN 41.9 mg/dL (9-20); CALCIUM 9.12 mg/dL (8.4-10.2); CARBON DIOXIDE 23.9 mmol/L (22-30.0); CHLORIDE 103.1 mmol/L (98-107); GLUCOSE 173.6 mg/dL (74-106); LIPASE 32.4 U/L (23-300); POTASSIUM 3.95 mmol/L (3.5-5.1); SODIUM 134.8 mmol/L (134.5-145); TOTAL PROTEIN 7.26 g/dL (6.3-8.2)
[2024-05-02 15:57] LABS: TROPONIN I < 0.012 ng/ml (0.0000-0.120)
[2024-05-02 16:22] LABS: SARS COV-2 RNA RAPID NAAT NEGATIVE (NEGATIVE)
[2024-05-02 16:23] LABS: MOLECULAR FLU A NEGATIVE BY NAAT (NEGATIVE); MOLECULAR FLU B NEGATIVE BY NAAT (NEGATIVE); RSV MOLECULAR NEGATIVE BY NAAT (NEGATIVE)
[2024-05-02 16:37] LABS: PROTHROMBIN TIME 10.4 SEC (9.3-11.0)
[2024-05-02] MEDS: IMODIUM PO STA (16:46)
[2024-05-02] MEDS: HYDRALAZINE HCL IVP STA (16:47)
--- NOTE | 2024-05-02 17:44 | DI ---
EXAM: CHEST FRONTAL VIEW HISTORY: Cough, productive COMPARISON: 10/14/2023 IMPRESSION: Prominent heart size. Moderate atherosclerotic disease. Chronic-appearing interstitial changes thro ughout. No obvious consolidated pneumonia or acute infiltrate. There is no visible pleural fluid, p neumothorax or vascular congestion. - - - - -
--- NOTE | 2024-05-02 18:16 | CT ---
EXAM: CT ABDOMEN AND PELVIS WITHOUT CONTRAST HISTORY: Abdomen pain COMPARISON: 04/30/2024 CT abdomen pelvis. TECHNIQUE: Axial CT imaging of the abdomen and pelvis was performed without IV contrast. Sagittal an d coronal re-formations were performed. FINDINGS: The lung bases show scattered linear atelectasis and/or scarring. Small hiatal hernia. The non contrast visualized portions of the liver, spleen, pancreas and adrenal glands are within nor mal limits. The previously described mild intra and extrahepatic biliary ductal dilatation is not we ll appreciated on the current study. The previously described trace pancreatic ductal dilatation is limited in assessment without the use of contrast. The gallbladder is surgically absent. No mesenteric or retroperitoneal lymphadenopathy is seen. The right and left kidney show normal enhancement with low-density cortical cysts. Stable bilateral nonobstructing renal calculi. There is no hydronephrosis or perinephric fat stranding. The aorta is normal in course and caliber. The appendix is normal. Interval development of mild diffuse colonic wall thickening. A moderate am ount of fecal material is present, particularly involving the rectum. The rectum measures 7.6 cm in diameter. Scattered colonic diverticula with no adjacent inflammatory process. No pathologically di lated loops of large or small bowel are seen. There is no free air or fluid seen in the abdomen or p karina. The urinary bladder is unremarkable. Small fat-containing right inguinal hernia. Redemonstrated is L2 acute mild anterior compression fracture. Transitional anatomy at the lumbosacr al junction with lumbarization of S1. IMPRESSION: 1. In comparison to the prior study, interval development of mild diffuse colitis. 2 . Constipation with findings suggestive of rectal impaction. No bowel obstruction.. 3. Stable bilateral nonobstructing nephrolithiasis. All CT scans are performed using dose optimization techniques as appropriate to the performed exam an d include at least one of the following: Automated exposure control, adjustment of the mA and/or kV according t o size, and the use of iterative reconstruction technique.
[2024-05-02 20:36] VITALS: BMI 20.2
[2024-05-02] MEDS ORDERED: ZOFRAN 4 MG/2 ML IVP PRN (20:44)
[2024-05-02] MEDS ORDERED: TYLENOL PO PRN (20:44)
[2024-05-02] MEDS ORDERED: ALBUTEROL 0.083% NEB NEB PRN (20:48)
[2024-05-02] MEDS: FLORASTOR PO SCH (21:49)
[2024-05-02] MEDS: LIPITOR PO SCH (21:49)
[2024-05-02] MEDS: GLYCERIN SUPPOSITORY RC ONE (21:49)
[2024-05-02] MEDS: FLAGYL 500 MG/100 ML 500 MG/100 ML BAG IV SCH (21:50)
[2024-05-02] MEDS: DUONEB NEB SCH (22:35)
[2024-05-02] MEDS: LEVAQUIN 750 MG/150 ML D5W 750 MG/150 ML BAG IV SCH (22:58)
[2024-05-02] MEDS: SOLU-MEDROL 40 MG IVP SCH (23:00)
[2024-05-03] MEDS: SYNTHROID PO SCH (05:16)
[2024-05-03 05:17] LABS: HEMATOCRIT 32.5 % (42.0-52.0); HEMOGLOBIN 10.7 g/dl (14.0-18.0); MEAN CORPUSCULAR HEMOGLOBIN 30.2 pg (27.0-31.0); MEAN CORPUSCULAR HGB CONC 32.9 (31.8-35.4); MEAN CORPUSCULAR VOLUME 91.8 fl (80.0-94.0); PLATELET COUNT 260 10^3/uL (140-440); RDW COEFFICIENT OF VARIATION 18.5 % (11.6-14.8); RED BLOOD COUNT 3.54 10^6/ul (4.70-6.10)
[2024-05-03] MEDS: SOLU-MEDROL 40 MG IVP SCH (05:17)
[2024-05-03] MEDS: HYDRALAZINE HCL IVP STA (05:20)
[2024-05-03 05:30] LABS: ANISOCYTOSIS NOT PRESENT (NOT PRESENT)
[2024-05-03 05:35] LABS: ALANINE AMINOTRANSFERASE 13.5 U/L (0-50); ALBUMIN 3.54 g/dL (3.5-5.0); ALKALINE PHOSPHATASE 75.9 U/L (56-119); ASPARTATE AMINO TRANSFERASE 36.1 U/L (17-59); BLOOD UREA NITROGEN 45.4 mg/dL (9-20); CALCIUM 8.97 mg/dL (8.4-10.2); CARBON DIOXIDE 25.6 mmol/L (22-30.0); CHLORIDE 102.9 mmol/L (98-107); CREATININE 1.8 mg/dL (0.60-1.10); POTASSIUM 5.19 mmol/L (3.5-5.1); SODIUM 135.6 mmol/L (134.5-145); TOTAL PROTEIN 6.77 g/dL (6.3-8.2)
[2024-05-03] MEDS: NORVASC PO SCH (08:07)
[2024-05-03] MEDS: CLARITIN PO SCH (08:07)
[2024-05-03] MEDS: ZYLOPRIM PO SCH (08:07)
[2024-05-03] MEDS: IMDUR PO SCH (08:07)
[2024-05-03] MEDS: ASPIRIN EC PO SCH (08:07)
[2024-05-03] MEDS ORDERED: SYNTHROID PO SCH (09:00)
[2024-05-03] MEDS: SODIUM CHLORIDE 1,000 ML IV SCH (09:02)
[2024-05-03 09:16] LABS: BILIRUBIN,URINE Negative (NEGATIVE); CLARITY,URINE Clear (CLEAR); COLOR,URINE Dark (YELLOW); GLUCOSE, URINE (UA) Negative (NEGATIVE); KETONES,URINE Negative (NEGATIVE); LEUKOCYTE ESTERASE ,URINE Negative (NEGATIVE); NITRITE,URINE Negative (NEGATIVE); PROTEIN,URINE 2+ (NEGATIVE); URINE, BLOOD Negative (NEGATIVE); UROBILINOGEN,URINE 0.2 (0.2)
[2024-05-03 09:25] LABS: AMORPHOUS SEDIMENT,UR TRACE (NOT PRESENT); BACTERIA,URINE 1+ (NOT PRESENT); GRANULAR CASTS,URINE 0-2 (NOT PRESENT); MUCUS,URINE TRACE (NOT PRESENT)
--- NOTE | 2024-05-03 09:46 | PCM ---
Date of Service Date Seen by Provider: 05/03/24 Time Seen by Provider: 09:00 Admit Day/Time Admission Date: 05/02/24 Reason for Admission Chief Complaint: COPD/CHOLEITIS Hospital Provider Hospital Provider: RACHELLE BAY MD, [facility] Primary Care Physician Primary Care Physician: JAZZMINE MACIEL History of Present Illness History of Present Illness: 83 yo male presents to the ER with pmh of copd, chronic diarrhea, chf, and hypertension with lower abdominal pain and shortness of breath x 1 week. Was seen in the ER 2 days ago for hip pain/abdominal pain. Work-up was negative and patient was discharged home. Returned with lower abdominal pain and shortness of breath. O2 sat was dropping down into low 90s. O2 on ABG was 56. He was placed on 2L. Denies any fever that he is aware of. Denies any nausea, vomiting, congestion, or other symptoms. Had small episode of diarrhea in the ER and was given imodium. CT abd pelvis completed and showed mild colitis and constipation with fecal impaction. Chest x-ray clear. WBC elevated at 14. He was given rocephin, steroids, and nebs in ER. Admitted to med/surg observation. Case Discussed With Case Discussed With: Patient's case was discussed with the ER Physicians, Dr. Vasquez. [facility] Medical History History of aortic stenosis Z86.79 - Personal history of other diseases of the circulatory system (ICD- 10) Bilateral carotid artery disease I77.9 - Disorder of arteries and arterioles, unspecified (ICD-10) Depression F32.A - Depression, unspecified (ICD-10) Anxiety F41.9 - Anxiety disorder, unspecified (ICD-10) COPD (chronic obstructive pulmonary disease) J44.9 - Chronic obstructive pulmonary disease, unspecified (ICD-10) Hyperlipidemia E78.5 - Hyperlipidemia, unspecified (ICD-10) Anemia D64.9 - Anemia, unspecified (ICD-10) Hypothyroidism E03.9 - Hypothyroidism, unspecified (ICD-10) Diabetes E11.9 - Type 2 diabetes mellitus without complications (ICD-10) Myocardial infarct March 2023 I21.9 - Acute myocardial infarction, unspecified (ICD-10) Hypertension I10 - Essential (primary) hypertension (ICD-10) Surgical History History of coronary artery stent placement Z95.5 - Presence of coronary angioplasty implant and graft (ICD-10) Status post spinal disc removal Z98.890 - Other specified postprocedural states (ICD-10) 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 - Acquired absence of other parts of urinary tract (ICD-10) Family History Other No known health problems Social History Smoking and tobacco status: Current every day smoker Tobacco type: cigarettes Smoking packs per day: 1 Smoking cigarettes per day: 20.0 Quit status: considering quitting Substance use type: does not use Special elio needs: No Agree to transfusion: Yes Adopted: No Caregiver/support person: Yes Foster care: No Household members: children Housing: house Marital status: W / Lives independently: Yes Daycare: no daycare Number of children: 1 Financial difficulty paying for basics: not very hard service: Yes MCC: No Current occupational status: retired History of recent travel: No Do you think of yourself as: straight/heterosexual Current gender identity: male Seatbelt use: always Helmet use: Yes Drives intoxicated or rides with intoxicated marine engine driver: No Allergies Allergies Allergy/AdvReac Type Severity Reaction Status Date / Time No Known Allergies Allergy Verified 04/30/24 07:48 Current Medications Home Medications allopurinol 100 mg tablet 100 mg PO DAILY 06/25/23 [History Confirmed 05/02/24 Last Taken Unknown] amlodipine 10 mg tablet 5 mg PO DAILY 06/25/23 [History Confirmed 05/02/24 Last Taken Unknown] aspirin 81 mg tablet,delayed release (Lor Low Dose Aspirin) 81 mg PO DAILY 06/25/23 [History Confirmed 05/02/24 Last Taken Unknown] atorvastatin 80 mg tablet 40 mg PO BEDTIME 06/25/23 [History Confirmed 05/02/24 Last Taken Unknown] isosorbide mononitrate 30 mg tablet,extended release 24 hr 30 mg PO DAILY 06/25/23 [History Confirmed 05/02/24 Last Taken Unknown] levothyroxine 112 mcg tablet (Euthyrox) 112 mcg PO DAILY 06/25/23 [History Confirmed 05/02/24 Last Taken Unknown] loratadine 10 mg tablet (Allerclear) 10 mg PO DAILY 06/25/23 [History Confirmed 05/02/24 Last Taken Unknown] magnesium oxide 400 mg PO DAILY 06/25/23 [History Confirmed 05/02/24 Last Taken Unknown] nitroglycerin 0.4 mg sublingual tablet 0.4 mg sublingual Q5-15M PRN chest pain 06/25/23 [History Confirmed 05/02/24 Last Taken Unknown] omega 6-lcs-gyz-fish oil 300 mg-1,000 mg capsule (Fish Oil) 1 cap PO DAILY 06/25/23 [History Confirmed 05/02/24 Last Taken Unknown] furosemide 20 mg tablet 20 mg PO DAILY 08/27/23 [History Confirmed 05/02/24 Last Taken Unknown] Saccharomyces boulardii 250 mg capsule (Florastor) 250 mg PO BID #20 caps 10/11/23 [Rx Confirmed 05/02/24 Last Taken Unknown] ondansetron 4 mg disintegrating tablet 4 mg PO Q6H PRN nausea and vomiting #30 tabs 10/11/23 [Rx Confirmed 05/02/24 Last Taken Unknown] tramadol 50 mg tablet 50 mg PO Q8H PRN pain #14 tabs 04/30/24 [Rx Confirmed 05/02/24 Last Taken Unknown] Home Acetaminophen (Acetaminophen 325 Mg Tablet) 650 mg PO Q4H PRN PRN Reason: Mild Pain Albuterol Sulfate (Albuterol Sulfate 0.083% Vial.Neb) 2.5 mg NEB RTQ4H PRN PRN Reason: Wheezing Albuterol/Ipratropium (Ipratropium/Albuterol Vial.Neb) 3 ml NEB RTQ4H [facility] Last Admin: 05/03/24 09:28 Dose: 3 ml Allopurinol (Allopurinol 100 Mg Tablet) 100 mg PO DAILY [facility] Last Admin: 05/03/24 08:07 Dose: 100 mg Amlodipine Besylate (Amlodipine Besylate 5 Mg Tablet) 5 mg PO DAILY [facility] Last Admin: 05/03/24 08:07 Dose: 5 mg Aspirin (Aspirin 81 Mg Tablet.) 81 mg PO DAILY [facility] Last Admin: 05/03/24 08:07 Dose: 81 mg Atorvastatin Calcium (Atorvastatin Calcium 20 Mg Tablet) 40 mg PO BEDTIME [facility] Last Admin: 05/02/24 21:49 Dose: 40 mg Metronidazole (Flagyl 500 Mg/100 Ml) 500 mg in 100 mls @ 100 mls/hr IV Q8HR [facility] Stop: 05/05/24 20:59 Last Admin: 05/03/24 05:16 Dose: 100 mls/hr Levofloxacin/Dextrose (Levaquin 750 Mg/150 Ml D5w) 750 mg in 150 mls @ 100 mls/hr IV Q48HR@2100 [facility] Stop: 05/05/24 22:59 Sodium Chloride (Sodium Chloride) 1,000 mls @ 100 mls/hr IV .Q10H [facility] Last Admin: 05/03/24 09:02 Dose: 100 mls/hr Isosorbide Mononitrate (Isosorbide Mononitrate 30 Mg Tab.Er.24h) 30 mg PO DAILY [facility] Last Admin: 05/03/24 08:07 Dose: 30 mg Levothyroxine Sodium (Levothyroxine Sodium 112 Mcg Tablet) 112 mcg PO QDAC2 [facility] Last Admin: 05/03/24 05:16 Dose: 112 mcg Loratadine (Loratadine 10 Mg Tablet) 10 mg PO DAILY [facility] Last Admin: 05/03/24 08:07 Dose: 10 mg Methylprednisolone Sodium Succinate (Methylprednisolone Sod Succ/Pf 40 Mg/Ml Vial) 40 mg IVP Q8H [facility] Last Admin: 05/03/24 08:07 Dose: 40 mg Ondansetron HCl (Ondansetron Hcl/Pf 4 Mg/2 Ml Sdv) 4 mg IVP Q6H PRN PRN Reason: Nausea / Vomiting Saccharomyces Boulardii (Saccharomyces Boulardii 250 Mg Capsule) 250 mg PO BID [facility] Last Admin: 05/03/24 08:07 Dose: 250 mg Sodium Chloride (0.9% Sodium Chloride 10 Ml Disp.Syrin) 1 syr IVF Q8HR [facility] Last Admin: 05/03/24 05:16 Dose: 1 syr Tramadol HCl (Tramadol Hcl 50 Mg Tablet) 50 mg PO Q8H PRN PRN Reason: Pain Discontinued Medications Albuterol/Ipratropium (Ipratropium/Albuterol Vial.Neb) 3 ml NEB ONCE STA Stop: 05/02/24 14:56 Last Admin: 05/02/24 15:10 Dose: 3 ml Clonidine (Clonidine Hcl 0.1 Mg Tablet) 0.2 mg PO ONCE ONE Stop: 05/02/24 15:05 Last Admin: 05/02/24 15:17 Dose: 0.2 mg Glycerin (Glycerin 1 Each Supp.Rect) 1 each RC ONCE ONE Stop: 05/02/24 20:45 Last Admin: 05/02/24 21:49 Dose: 1 each Hydralazine HCl (Hydralazine Hcl 20 Mg/Ml Sdv) 10 mg IVP ONCE STA Stop: 05/02/24 16:16 Last Admin: 05/02/24 16:47 Dose: 10 mg Hydralazine HCl (Hydralazine Hcl 20 Mg/Ml Sdv) 20 mg IVP ONCE STA Stop: 05/02/24 17:30 Last Admin: 05/03/24 05:20 Dose: Not Given Sodium Chloride (Sodium Chloride) 500 mls @ 50 mls/hr IV .Q10H ONE Stop: 05/03/24 00:55 Last Infusion: 05/02/24 21:05 Dose: Infused CEFTRIAXONE/D5W 1 GM PREMIX (Rocephin 1 Gm/50 Ml D5w) 1 gm in 50 mls @ 100 mls/hr IV ONCE ONE Stop: 05/02/24 15:39 Last Admin: 05/02/24 15:34 Dose: 100 mls/hr Levofloxacin/Dextrose (Levaquin 750 Mg/150 Ml D5w) 750 mg in 150 mls @ 100 mls/hr IV Q48H [facility] Stop: 05/05/24 22:59 Last Admin: 05/02/24 22:58 Dose: 100 mls/hr Levothyroxine Sodium (Levothyroxine Sodium 112 Mcg Tablet) 112 mcg PO DAILY [facility] Loperamide HCl (Loperamide Hcl 2 Mg Tablet) 4 mg PO ONCE STA Stop: 05/02/24 16:18 Last Admin: 05/02/24 16:46 Dose: 4 mg Methylprednisolone Sodium Succinate (Methylprednisolone Sod Succ/Pf 125 Mg/2 Ml Vial) 125 mg IVP ONCE ONE Stop: 05/02/24 15:11 Last Admin: 05/02/24 15:35 Dose: 125 mg Methylprednisolone Sodium Succinate (Methylprednisolone Sod Succ/Pf 40 Mg/Ml Vial) 40 mg IVP Q8HR [facility] Last Admin: 05/03/24 05:17 Dose: Not Given Morphine Sulfate (Morphine Sulfate 2 Mg/Ml Syringe) 2 mg IVP ONCE ONE Stop: 05/02/24 14:57 Last Admin: 05/02/24 15:16 Dose: 2 mg Ondansetron HCl (Ondansetron Hcl/Pf 4 Mg/2 Ml Sdv) 4 mg IVP ONCE STA Stop: 05/02/24 14:57 Last Admin: 05/02/24 15:17 Dose: 4 mg Opioid Naive vs. Tolerant Does Patient Take Opioids?: No Is Patient Opioid Naive?: Yes What is Opioid Naive?: *Opioid Naive implies the patient is not already taking opioids or not chronically receiving opioids on a daily basis. *PRN dosing is not "usually" associated with tolerance. *Patients are at higher risk of over-sedation and aspiration. Is Patient Opioid Tolerant?: No What is Opioid Tolerant?: *Opioid Tolerance implies less than the expected response to an opioid. *Acquired tolerance is defined by the patient taking 60mg of oral morphine daily (or equianalgesic dose of another opioid) for 1 week or more. *Often associated with chronic pain. *May take more than usual dose to achieve desired pain control. Review of Systems Constitutional: Reports Weakness Eyes: Reports No symptoms Ears: Reports No symptoms Mouth: Reports No symptoms Throat: Reports No symptoms Cardiovascular: Reports No symptoms Respiratory: Reports Shortness of air Gastrointestinal: Reports Constipation and Abdominal pain Genitourinary: Reports No Symptoms Musculoskeletal: Reports No symptoms Endocrine: Reports No symptoms Hematology: Reports No symptoms Immunology: Reports No symptoms Neurological: Reports No symptoms Psychiatric: Reports No symptoms Physical examination Most Recent Vital Signs: Most Recent Vital Signs Temperature 98.7 F 05/03/24 05:30 Temperature Source Temporal Artery Scan 05/03/24 05:30 Temperature Source Infrared 05/02/24 14:44 Pulse Rate 84 05/03/24 05:30 Respiratory Rate 20 05/03/24 05:30 Blood Pressure 148/65 H 05/03/24 05:30 Blood Pressure Mean 92 05/03/24 05:30 Blood Pressure Left Arm 127/73 05/02/24 20:09 Blood Pressure Location Left Arm 05/03/24 05:30 Blood Pressure Position Supine 05/03/24 05:30 O2 Sat by Pulse Oximetry 98 05/03/24 05:40 Oxygen Delivery Method Room Air 05/03/24 09:00 Oxygen Flow Rate 1 05/03/24 05:40 Height 6 ft 1 in 05/02/24 20:09 Weight 69.9 kg 05/03/24 05:42 Telemetry Type Remote Telemetry 05/03/24 07:00 Telemetry Monitoring Continues 05/03/24 07:00 Telemetry Heart Rate 73 05/03/24 07:00 Telemetry SPO2 95 05/03/24 07:00 EKG HI Interval 0.20 05/03/24 07:00 EKG QRS Interval 0.08 05/03/24 07:00 Telemetry Strip Reading sr w/ PACs 05/03/24 07:00 Appearance: Positive No Apparent Distress, Ill-Appearing, Thin and Cachectic Skin: Positive Warm HEENT: Positive Normocephalic and PERRLA Neck: Positive Supple and Midline Trachea Chest/Lungs: Positive Symmetrical With Equal Breath Sounds and Clear to Auscultation Bilaterally Heart: Positive RRR and Pulses Normal GI/: Positive Soft, Nontender (RUQ and LUQ), Bowel Sounds Normal, No Distention and Tender (RLQ and LLQ) Musculoskeletal: Positive Not Examined Extremities: Positive Intact Peripheral Pulses, Stable Joints Without Laxity and Good ROM in All Joints Neurological: Positive Sensation Intact, Motor intact, Alert, Oriented and Disorinted Psychiatric: Positive Appropriate Mood, Appropriate Affect, Normal Judgement and Normal Insight; Negative Intact Memory, Good Short-Term Recall or Good Long-Term Recall Labs This Visit Labs This Visit: Labs This Visit 05/02/24 05/02/24 05/02/24 15:00 15:17 15:21 WBC 14.41 H RBC 3.31 L Hgb 9.9 L Hct 30.8 L MCV 93.1 MCH 29.9 MCHC 32.1 RDW Coeff of Sri 18.7 H Plt Count 264 Immature Gran % (Auto) 0.6 Neut % (Auto) 79.0 H Lymph % (Auto) 9.4 L Humphreys % (Auto) 8.8 Eos % (Auto) 1.9 Baso % (Auto) 0.3 Neut # (Auto) 11.4 H Lymph # (Auto) 1.4 Humphreys # (Auto) 1.3 Eos # (Auto) 0.3 Baso # (Auto) 0.0 Immature Gran # (Auto) 0.1 Neutrophils % (Manual) Band Neutrophils % Lymphocytes % (Manual) Metamyelocytes % Anisocytosis PT 10.4 INR 1.00 Puncture Site [place] Base Excess 1.2 O2 Saturation 88.7 L ABG pH 7.40 ABG pCO2 42.0 ABG pO2 56.0 L* ABG HCO3 26.0 ABG Total CO2 27.3 H Ralph Test N/ Hemoglobin 1.3 Oxyhemoglobin 87.3 L Carboxyhemoglobin 4.8 H Total Hemoglobin 10.6 L Sodium 134.8 Potassium 3.95 Chloride 103.1 Carbon Dioxide 23.9 D Anion Gap 11.75 BUN 41.9 H Creatinine 1.80 H Estimated GFR (MDRD) 36.00 BUN/Creatinine Ratio 23.27 Glucose 173.6 H Calcium 9.12 Total Bilirubin 0.83 AST 35.0 ALT 10.7 Alkaline Phosphatase 91.3 Troponin I < 0.012 NT-Pro-B Natriuret Pep 2940 H Total Protein 7.26 Albumin 3.81 Globulin 3.45 Albumin/Globulin Ratio 1.10 Lipase 32.4 Urine Color Urine Clarity Urine pH Ur Specific [place] Urine Protein Urine Glucose (UA) Urine Ketones Urine Blood Urine Nitrite Urine Bilirubin Urine Urobilinogen Ur Leukocyte Esterase Urine Microscopic RBC Urine Microscopic WBC Ur Squamous Epith Cells Amorphous Sediment Urine Bacteria Hyaline Casts Granular Casts Urine Mucus Influ A Molecular Assay Negative by naat Influ B Molecular Assay Negative by naat RSV Antigen Negative by naat SARS CoV-2 RNA Rapid JESICA Negative 05/03/24 05/03/24 05:00 09:05 WBC 22.50 H D RBC 3.54 L Hgb 10.7 L Hct 32.5 L MCV 91.8 MCH 30.2 MCHC 32.9 RDW Coeff of Sri 18.5 H Plt Count 260 Immature Gran % (Auto) Neut % (Auto) Lymph % (Auto) Humphreys % (Auto) Eos % (Auto) Baso % (Auto) Neut # (Auto) Lymph # (Auto) Humphreys # (Auto) Eos # (Auto) Baso # (Auto) Immature Gran # (Auto) Neutrophils % (Manual) 87.0 H Band Neutrophils % 6.0 H Lymphocytes % (Manual) 6.0 L Metamyelocytes % 1.0 Anisocytosis Not present PT INR Puncture Site Base Excess O2 Saturation ABG pH ABG pCO2 ABG pO2 ABG HCO3 ABG Total CO2 Ralph Test Hemoglobin Oxyhemoglobin Carboxyhemoglobin Total Hemoglobin Sodium 135.6 Potassium 5.19 H Chloride 102.9 Carbon Dioxide 25.6 Anion Gap 12.29 BUN 45.4 H Creatinine 1.80 H Estimated GFR (MDRD) 36.00 BUN/Creatinine Ratio 25.22 Glucose 176.0 H Calcium 8.97 Total Bilirubin 1.00 AST 36.1 ALT 13.5 Alkaline Phosphatase 75.9 Troponin I NT-Pro-B Natriuret Pep Total Protein 6.77 Albumin 3.54 Globulin 3.23 Albumin/Globulin Ratio 1.09 Lipase Urine Color Dark Urine Clarity Clear Urine pH 5.0 Ur Specific [place] 1.025 Urine Protein 2+ H Urine Glucose (UA) Negative Urine Ketones Negative Urine Blood Negative Urine Nitrite Negative Urine Bilirubin Negative Urine Urobilinogen 0.2 Ur Leukocyte Esterase Negative Urine Microscopic RBC 2-5 Urine Microscopic WBC 5-10 Ur Squamous Epith Cells 5-10 Amorphous Sediment Trace Urine Bacteria 1+ Hyaline Casts 2-5 Granular Casts 0-2 Urine Mucus Trace Influ A Molecular Assay Influ B Molecular Assay RSV Antigen SARS CoV-2 RNA Rapid JESICA Imaging Imaging: EXAM: CT ABDOMEN AND PELVIS WITHOUT CONTRAST FINDINGS: The lung bases show scattered linear atelectasis and/or scarring. Small hiatal hernia. The non contrast visualized portions of the liver, spleen, pancreas and adrenal glands are within normal limits. The previously described mild intra and extrahepatic biliary ductal dilatation is not well appreciated on the current study. The previously described trace pancreatic ductal dilatation is limited in assessment without the use of contrast. The gallbladder is surgically absent. No mesenteric or retroperitoneal lymphadenopathy is seen. The right and left kidney show normal enhancement with low-density cortical cysts. Stable bilateral nonobstructing renal calculi. There is no hydronephrosis or perinephric fat stranding. The aorta is normal in course and caliber. The appendix is normal. Interval development of mild diffuse colonic wall thickening. A moderate amount of fecal material is present, particularly involving the rectum. The rectum measures 7.6 cm in diameter. Scattered colonic diverticula with no adjacent inflammatory process. No pathologically dilated loops of large or small bowel are seen. There is no free air or fluid seen in the abdomen or pelvis. The urinary bladder is unremarkable. Small fat- containing right inguinal hernia. Redemonstrated is L2 acute mild anterior compression fracture. Transitional anatomy at the lumbosacral junction with lumbarization of S1. IMPRESSION: 1. In comparison to the prior study, interval development of mild diffuse colitis. 2 . Constipation with findings suggestive of rectal impaction. No bowel obstruction.. 3. Stable bilateral nonobstructing nephrolithiasis. EXAM: CHEST FRONTAL VIEW IMPRESSION: Prominent heart size. Moderate atherosclerotic disease. Chronic-appearing interstitial changes throughout. No obvious consolidated pneumonia or acute infiltrate. There is no visible pleural fluid, pneumothorax or vascular congestion. Review Statement Review Statement: I have independently reviewed and interpreted the labs/EKGs/imaging that were ordered by the ER provider. I have reviewed all outside records that are available currently in our EMR including imaging/notes/labs from previous visits. Plan Plan: 1. Sepsis - blood cultures pending, elevated procal and WBC, no fever, did not receive fluid bolus due to CHF 2. Acute Hypoxic Respiratory Failure in setting of COPD exacerbation - resolved, on RA, weaned from O2 overnight, nebs, steroids 3. COPD Exacerbation - levaquin Q24H, nebs, steroids 4. Mild diffuse colitis - likely contributing to leukocytosis in addition to steroids, treating with levaquin and flagyl, no recent abx use/concern for c. diff, no further diarrhea stools 5. Rectal impaction - glycerin suppository administered last night, large hard formed BM noted, will add stool softener prn and recommend for at home use 6. Acute on Chronic Renal Failure - creatinine 1.8, baseline 1.2-1.3, gentle fluids with NS@100mL/hr, avoid nephrotoxins/hypotension 7. CHF - not in exacerbation, appears hypovolemic at this time, holding lasix, weigh daily, I&O DVT Prophylaxis: ASA Time Spent: Greater than 80 minutes spent with patient, 50% of the time spent with this patient was devoted to counseling and coordination of care. [facility] minutes spent discussing advance care planning. Smoking Cessation: 3-10 minutes spent discussing smoking cessation. Disposition: Admit to: Med/Surg Observation DNR Discussed Plan of Care with Dr. Iva Bay. Medications Medication Orders: Medications Ordered Category Date Time Status 0.9 % Sodium Chloride [Saline Flush] Meds 05/03/24 05:00 Active 1 syr IVF Q8HR Acetaminophen [Tylenol] Meds 05/02/24 20:44 Active 650 mg PO Q4H PRN Albuterol Sulfate 0.083% Neb [Albuterol 0.083% Neb] Meds 05/02/24 20:48 Active 2.5 mg NEB RTQ4H PRN Allopurinol [Zyloprim] Meds 05/03/24 09:00 Active 100 mg PO DAILY Amlodipine Besylate [Norvasc] Meds 05/03/24 09:00 Active 5 mg PO DAILY Aspirin [Aspirin EC] Meds 05/03/24 09:00 Active 81 mg PO DAILY Atorvastatin Calcium [Lipitor] Meds 05/02/24 21:00 Active 40 mg PO BEDTIME Ipratropium/Albuterol Neb [Duoneb] Meds 05/02/24 22:00 Active 3 ml NEB RTQ4H Isosorbide Mononitrate [Imdur] Meds 05/03/24 09:00 Active 30 mg PO DAILY Levofloxacin/D5w [Levaquin 750 mg/150 ml D5w] Meds 05/04/24 21:00 Active 750 mg in 150 ml IV Q48HR@2100 Levothyroxine Sodium [Synthroid] Meds 05/03/24 06:00 Active 112 mcg PO QDAC2 Loratadine [Claritin] Meds 05/03/24 09:00 Active 10 mg PO DAILY Methylprednisolone Sod Succ/Pf [Solu-Medrol 40 mg] Meds 05/02/24 23:30 Active 40 mg IVP Q8H Metronidazole/Sodium Chloride [Flagyl 500 mg/100 ml] Meds 05/02/24 21:00 Active 500 mg in 100 ml IV Q8HR Ondansetron HCl/Pf [Zofran 4 mg/2 ml] Meds 05/02/24 20:44 Active 4 mg IVP Q6H PRN Saccharomyces Boulardii [Florastor] Meds 05/02/24 21:00 Active 250 mg PO BID Sodium Chloride 0.9% [Sodium Chloride] 1,000 ml Meds 05/03/24 08:30 Active IV 100 mls/hr Tramadol HCl [Ultram] Meds 05/02/24 20:54 Active 50 mg PO Q8H PRN
[2024-05-03] MEDS ORDERED: COLACE PO PRN (12:21)
[2024-05-04 05:13] LABS: BASOPHILS % (AUTO) 0.1 % (0.0-3.0); HEMATOCRIT 28.8 % (42.0-52.0); HEMOGLOBIN 9.4 g/dl (14.0-18.0); IMMATURE GRANULOCYTE # (AUTO) 0.2 (0.0-1.0); IMMATURE GRANULOCYTE % (AUTO) 0.7 % (0.0-5.0); LYMPHOCYTES # (AUTO) 0.5 K/uL (0.60-3.4); LYMPHOCYTES % (AUTO) 2.1 (10.0-50.0); MEAN CORPUSCULAR HEMOGLOBIN 29.8 pg (27.0-31.0); MEAN CORPUSCULAR HGB CONC 32.6 (31.8-35.4); MEAN CORPUSCULAR VOLUME 91.4 fl (80.0-94.0); MONOCYTES % (AUTO) 4.7 (0-10); NEUTROPHILS # (AUTO) 20.3 K/ul (2.0-6.9); NEUTROPHILS % (AUTO) 92.4 % (42.2-75.2); PLATELET COUNT 234 10^3/uL (140-440); RDW COEFFICIENT OF VARIATION 18.6 % (11.6-14.8); RED BLOOD COUNT 3.15 10^6/ul (4.70-6.10)
[2024-05-04 05:25] LABS: ALANINE AMINOTRANSFERASE 10.6 U/L (0-50); ALBUMIN 3.02 g/dL (3.5-5.0); ALKALINE PHOSPHATASE 63.8 U/L (56-119); ASPARTATE AMINO TRANSFERASE 30.9 U/L (17-59); BILIRUBIN,TOTAL 0.58 mg/dL (0.2-1.3); BLOOD UREA NITROGEN 55.9 mg/dL (9-20); CALCIUM 8.52 mg/dL (8.4-10.2); CARBON DIOXIDE 23.3 mmol/L (22-30.0); CHLORIDE 106.2 mmol/L (98-107); CREATININE 1.85 mg/dL (0.60-1.10); GLUCOSE 140.5 mg/dL (74-106); POTASSIUM 4.37 mmol/L (3.5-5.1); SODIUM 135.4 mmol/L (134.5-145); TOTAL PROTEIN 6.18 g/dL (6.3-8.2)
--- NOTE | 2024-05-04 09:34 | PCM.PROG ---
Date/Time Seen Date Seen by Provider: 05/04/24 Time Seen by Provider: 08:30 Provider Provider: [facility], [facility] Chief Complaint Chief Complaint: COPD/CHOLEITIS Subjective Subjective: Continued tenderness to lower abdomen and marked guarding on palpation. Reports feeling some better but concerned about going home. Renal function worsened with fluids overnight. Discussed any previous urinary retention issues and denied. Denies BPH that he is aware of. Objective Appearance: Positive No Apparent Distress, Alert and Oriented x3 and Ill- Appearing Chest/Lungs: Positive Symmetrical With Equal Breath Sounds and Clear to Auscultation Bilaterally Heart: Positive RRR and Pulses Normal GI/: Positive Soft, Bowel Sounds Normal, No Distention, No Organomegaly and Tender (bilateral lower quadrants) Musculoskeletal: Positive Not Examined Neurological: Positive Sensation Intact, Motor intact, Alert and Oriented Vital Signs Vital Signs: Vital Signs: Last 24 Hours 05/03/24 09:37 05/03/24 10:00 05/03/24 10:00 Temperature 98.2 F Temperature Source Temporal Artery Scan Pulse Rate 73 Respiratory Rate 20 Blood Pressure 124/59 L Blood Pressure Mean 80 Blood Pressure Location Left Arm Blood Pressure Position Supine O2 Sat by Pulse Oximetry 95 93 L Oxygen Delivery Method Room Air Room Air Room Air Height Weight Telemetry Type Telemetry Monitoring Telemetry Heart Rate Telemetry SPO2 EKG CT Interval EKG QRS Interval Telemetry Strip Reading 05/03/24 11:00 05/03/24 11:05 05/03/24 12:00 Temperature Temperature Source Pulse Rate Respiratory Rate Blood Pressure Blood Pressure Mean Blood Pressure Location Blood Pressure Position O2 Sat by Pulse Oximetry Oxygen Delivery Method Room Air Room Air Height 6 ft 1 in Weight 69.9 kg Telemetry Type Telemetry Monitoring Telemetry Heart Rate Telemetry SPO2 EKG CT Interval EKG QRS Interval Telemetry Strip Reading 05/03/24 13:00 05/03/24 13:00 05/03/24 13:44 Temperature Temperature Source Pulse Rate Respiratory Rate Blood Pressure Blood Pressure Mean Blood Pressure Location Blood Pressure Position O2 Sat by Pulse Oximetry Oxygen Delivery Method Room Air Room Air Height Weight Telemetry Type Remote Telemetry Telemetry Monitoring Continues Telemetry Heart Rate [address] Interval 0.20 EKG QRS Interval 0.08 Telemetry Strip Reading sr w/ pacS 05/03/24 13:50 05/03/24 14:00 05/03/24 14:56 Temperature 97.8 F Temperature Source Temporal Artery Scan Pulse Rate 72 Respiratory Rate 20 Blood Pressure 132/62 Blood Pressure Mean 85 Blood Pressure Location Left Arm Blood Pressure Position Supine O2 Sat by Pulse Oximetry 95 95 Oxygen Delivery Method Room Air Room Air Room Air Height Weight Telemetry Type Telemetry Monitoring Telemetry Heart Rate Telemetry SPO2 EKG CT Interval EKG QRS Interval Telemetry Strip Reading 05/03/24 16:00 05/03/24 17:00 05/03/24 17:44 Temperature Temperature Source Pulse Rate Respiratory Rate Blood Pressure Blood Pressure Mean Blood Pressure Location Blood Pressure Position O2 Sat by Pulse Oximetry Oxygen Delivery Method Room Air Room Air Room Air Height Weight Telemetry Type Telemetry Monitoring Telemetry Heart Rate Telemetry SPO2 EKG CT Interval EKG QRS Interval Telemetry Strip Reading 05/03/24 18:00 05/03/24 19:00 05/03/24 19:00 Temperature 97.7 F Temperature Source Oral Pulse Rate 78 Respiratory Rate 20 Blood Pressure 119/44 L Blood Pressure Mean 69 Blood Pressure Location Right Arm Blood Pressure Position Supine O2 Sat by Pulse Oximetry 94 L Oxygen Delivery Method Room Air Room Air Height Weight Telemetry Type Remote Telemetry Telemetry Monitoring Continues Telemetry Heart Rate 74 Telemetry SPO2 [address] Interval 0.20 EKG QRS Interval 0.06 Telemetry Strip Reading NSR 05/03/24 20:00 05/03/24 20:00 05/03/24 20:41 Temperature 98.9 F Temperature Source Temporal Artery Scan Pulse Rate 73 Respiratory Rate 19 Blood Pressure 138/76 Blood Pressure Mean 96 Blood Pressure Location Left Arm Blood Pressure Position Supine O2 Sat by Pulse Oximetry 94 L Oxygen Delivery Method Room Air Room Air Room Air Height Weight Telemetry Type Telemetry Monitoring Telemetry Heart Rate Telemetry SPO2 EKG CT Interval EKG QRS Interval Telemetry Strip Reading 05/03/24 21:00 05/03/24 21:40 05/03/24 22:00 Temperature Temperature Source Pulse Rate Respiratory Rate Blood Pressure Blood Pressure Mean Blood Pressure Location Blood Pressure Position O2 Sat by Pulse Oximetry 98 Oxygen Delivery Method Room Air Room Air Room Air Height Weight Telemetry Type Telemetry Monitoring Telemetry Heart Rate Telemetry SPO2 EKG CT Interval EKG QRS Interval Telemetry Strip Reading 05/03/24 22:00 05/03/24 23:00 05/04/24 00:00 Temperature Temperature Source Pulse Rate Respiratory Rate Blood Pressure Blood Pressure Mean Blood Pressure Location Blood Pressure Position O2 Sat by Pulse Oximetry Oxygen Delivery Method Room Air Room Air Room Air Height Weight Telemetry Type Telemetry Monitoring Telemetry Heart Rate Telemetry SPO2 EKG CT Interval EKG QRS Interval Telemetry Strip Reading 05/04/24 01:00 05/04/24 01:00 05/04/24 02:00 Temperature Temperature Source Pulse Rate Respiratory Rate Blood Pressure Blood Pressure Mean Blood Pressure Location Blood Pressure Position O2 Sat by Pulse Oximetry Oxygen Delivery Method Room Air Room Air Height Weight Telemetry Type Remote Telemetry Telemetry Monitoring Continues Telemetry Heart Rate 70 Telemetry SPO2 [address] Interval 0.20 EKG QRS Interval 0.08 Telemetry Strip Reading SR/pac's 05/04/24 02:00 05/04/24 03:00 05/04/24 04:00 Temperature 98.8 F Temperature Source Temporal Artery Scan Pulse Rate 96 Respiratory Rate 18 Blood Pressure 119/70 Blood Pressure Mean 86 Blood Pressure Location Left Arm Blood Pressure Position Supine O2 Sat by Pulse Oximetry 95 Oxygen Delivery Method Room Air Room Air Room Air Height Weight Telemetry Type Telemetry Monitoring Telemetry Heart Rate Telemetry SPO2 EKG CT Interval EKG QRS Interval Telemetry Strip Reading 05/04/24 05:00 05/04/24 05:11 05/04/24 05:11 Temperature 97.8 F Temperature Source Temporal Artery Scan Pulse Rate 81 Respiratory Rate 18 Blood Pressure 136/74 Blood Pressure Mean 94 Blood Pressure Location Right Arm Blood Pressure Position Supine O2 Sat by Pulse Oximetry 94 L Oxygen Delivery Method Room Air Room Air Height Weight 72 kg Telemetry Type Telemetry Monitoring Telemetry Heart Rate Telemetry SPO2 EKG CT Interval EKG QRS Interval Telemetry Strip Reading 05/04/24 05:40 05/04/24 06:00 05/04/24 07:00 Temperature Temperature Source Pulse Rate Respiratory Rate Blood Pressure Blood Pressure Mean Blood Pressure Location Blood Pressure Position O2 Sat by Pulse Oximetry 97 Oxygen Delivery Method Room Air Room Air Room Air Height Weight Telemetry Type Telemetry Monitoring Telemetry Heart Rate Telemetry SPO2 EKG CT Interval EKG QRS Interval Telemetry Strip Reading 05/04/24 07:00 05/04/24 08:00 Temperature Temperature Source Pulse Rate Respiratory Rate Blood Pressure Blood Pressure Mean Blood Pressure Location Blood Pressure Position O2 Sat by Pulse Oximetry Oxygen Delivery Method Room Air Height Weight Telemetry Type Remote Telemetry Telemetry Monitoring Continues Telemetry Heart Rate [address] Interval 0.20 EKG QRS Interval 0.08 Telemetry Strip Reading SR Lab Results Lab Results: Lab Results: Last 24 Hours 05/04/24 05/03/24 05:02 05:00 WBC 22.00 H RBC 3.15 L Hgb 9.4 L Hct 28.8 L MCV 91.4 MCH 29.8 MCHC 32.6 RDW Coeff of Sri 18.6 H Plt Count 234 Immature Gran % (Auto) 0.7 Neut % (Auto) 92.4 H Lymph % (Auto) 2.1 L [place] % (Auto) 4.7 Eos % (Auto) 0.0 Baso % (Auto) 0.1 Neut # (Auto) 20.3 H Lymph # (Auto) 0.5 L [place] # (Auto) 1.0 Eos # (Auto) 0.0 Baso # (Auto) 0.0 Immature Gran # (Auto) 0.2 Sodium 135.4 Potassium 4.37 Chloride 106.2 Carbon Dioxide 23.3 Anion Gap 10.27 BUN 55.9 H Creatinine 1.85 H Estimated GFR (MDRD) 35.00 BUN/Creatinine Ratio 30.21 Glucose 140.5 H Calcium 8.52 Total Bilirubin 0.58 AST 30.9 ALT 10.6 Alkaline Phosphatase 63.8 Total Protein 6.18 L Albumin 3.02 L Globulin 3.16 Albumin/Globulin Ratio 0.95 Procalcitonin 16.63 H 15.54 H Additional Comments Additional Comments: I have independently reviewed and interpreted the labs/EKGs/imaging ordered during this hospital stay. I have reviewed outside records that are available in our EMR that pertain to medical stay including imaging/notes/labs from previous visits. Active Medications Active Medications: Medications Generic Name Dose Route Start Last Admin Trade Name Freq PRN Reason Stop Dose Admin Acetaminophen 650 mg 05/02/24 20:44 Acetaminophen 325 Mg Tablet PO Q4H PRN Mild Pain Albuterol Sulfate 2.5 mg 05/02/24 20:48 Albuterol Sulfate 0.083% Vial.Neb NEB RTQ4H PRN Wheezing Albuterol/Ipratropium 3 ml 05/02/24 22:00 05/04/24 05:42 Ipratropium/Albuterol Vial.Neb NEB 3 ml RTQ4H BERYL Administration Allopurinol 100 mg 05/03/24 09:00 05/04/24 08:12 Allopurinol 100 Mg Tablet PO 100 mg DAILY BERYL Administration Amlodipine Besylate 5 mg 05/03/24 09:00 05/04/24 08:12 Amlodipine Besylate 5 Mg Tablet PO 5 mg DAILY BERYL Administration Aspirin 81 mg 05/05/24 07:30 Aspirin 81 Mg Tablet. PO DAILYWM2 BERYL Atorvastatin Calcium 40 mg 05/02/24 21:00 05/03/24 20:06 Atorvastatin Calcium 20 Mg Tablet PO 40 mg BEDTIME BERYL Administration Docusate Sodium 100 mg 05/03/24 12:21 Docusate Sodium 100 Mg Capsule PO BID PRN Constipation Metronidazole 500 mg in 100 mls @ 100 mls/hr 05/02/24 21:00 05/04/24 05:27 Flagyl 500 Mg/100 Ml IV 05/05/24 20:59 100 mls/hr Q8HR BERYL Administration Levofloxacin/Dextrose 750 mg in 150 mls @ 100 mls/hr 05/04/24 21:00 Levaquin 750 Mg/150 Ml D5w IV 05/05/24 22:59 Q48HR@2100 PENDING SALE TO [facility] Sodium Chloride 1,000 mls @ 100 mls/hr 05/03/24 08:30 05/04/24 05:45 Sodium Chloride IV 100 mls/hr .Q10H BERYL Administration Isosorbide Mononitrate 30 mg 05/03/24 09:00 05/04/24 08:11 Isosorbide Mononitrate 30 Mg Tab.Er.24h PO 30 mg DAILY BERYL Administration Levothyroxine Sodium 112 mcg 05/03/24 06:00 05/04/24 05:28 Levothyroxine Sodium 112 Mcg Tablet PO 112 mcg QDAC2 BERYL Administration Loratadine 10 mg 05/03/24 09:00 05/04/24 08:12 Loratadine 10 Mg Tablet PO 10 mg DAILY BERYL Administration Methylprednisolone Sodium Succinate 40 mg 05/02/24 23:30 05/04/24 07:40 Methylprednisolone Sod Succ/Pf 40 Mg/Ml Vial IVP 40 mg Q8H BERYL Administration Ondansetron HCl 4 mg 05/02/24 20:44 Ondansetron Hcl/Pf 4 Mg/2 Ml Sdv IVP Q6H PRN Nausea / Vomiting Saccharomyces Boulardii 250 mg 05/02/24 21:00 05/04/24 08:12 Saccharomyces Boulardii 250 Mg Capsule PO 250 mg BID BERYL Administration Sodium Chloride 1 syr 05/03/24 05:00 05/04/24 05:27 0.9% Sodium Chloride 10 Ml Disp.Syrin IVF Not Given Q8HR BERYL Tramadol HCl 50 mg 05/02/24 20:54 Tramadol Hcl 50 Mg Tablet PO Q8H PRN Pain Plan Plan: 1. Sepsis - blood cultures negative x 24 hours, elevated procal and WBC, no fever, did not receive fluid bolus due to CHF 2. Acute Hypoxic Respiratory Failure in setting of COPD exacerbation - resolved, on RA, weaned from O2 overnight, nebs, steroids 3. COPD Exacerbation - levaquin Q24H, nebs, steroids 4. Mild diffuse colitis - Unchanged, diffuse lower abdominal pain, likely contributing to leukocytosis in addition to steroids, treating with levaquin and flagyl, no recent abx use/concern for c. diff, no further diarrhea stools 5. Rectal impaction - glycerin suppository administered last night, large hard formed BM noted, will add stool softener prn and recommend for at home use, checking KUB to see if resolution due to continued abd pain 6. Acute on Chronic Renal Failure - Worsened, creatinine 1.85 today with further elevated BUN in 50s, baseline 1.2-1.3, gentle fluids with NS@100mL/hr, avoid nephrotoxins/hypotension, bladder scan showed residual urine post-void, craft catheter placed 7. CHF - not in exacerbation, appears hypovolemic at this time, holding lasix, weigh daily, I&O DVT Prophylaxis: ASA Review Statement Review Statement: I have personally discussed and reviewed the patient's visit/currently lab s/imaging/decision making with Dr. Bay, my supervising attending. Greater that 50 minutes spent with patient, 50% of the time spent with this patient was devoted to counseling and coordination of care.
[2024-05-04 09:46] LABS: BILIRUBIN,URINE Negative (NEGATIVE); CLARITY,URINE Clear (CLEAR); COLOR,URINE Yellow (YELLOW); GLUCOSE, URINE (UA) Negative (NEGATIVE); KETONES,URINE Negative (NEGATIVE); LEUKOCYTE ESTERASE ,URINE Negative (NEGATIVE); NITRITE,URINE Negative (NEGATIVE); PH,URINE 5.5 (5-9); PROTEIN,URINE 2+ (NEGATIVE); URINE, BLOOD Negative (NEGATIVE); UROBILINOGEN,URINE 0.2 (0.2)
[2024-05-04 09:50] LABS: SQUAMOUS EPITHELIAL CELL,UR NOT PRESENT (0-5)
[2024-05-04 10:04] LABS: GRANULAR CASTS,URINE 0-2 (NOT PRESENT); URINE WBC, MICROSCOPIC 0-2 (0-2)
[2024-05-04 16:20] LABS: CALCIUM 8.29 mg/dL (8.4-10.2); CARBON DIOXIDE 22.5 mmol/L (22-30.0); CHLORIDE 107.2 mmol/L (98-107); CREATININE 1.59 mg/dL (0.60-1.10); GLUCOSE 158.4 mg/dL (74-106); POTASSIUM 4.06 mmol/L (3.5-5.1); SODIUM 135.5 mmol/L (134.5-145)
[2024-05-04] MEDS: SODIUM CHLORIDE 1,000 ML IV SCH (17:27)
[2024-05-04] MEDS: MORPHINE 2 MG/ML SYRINGE IVP ONE (19:34)
[2024-05-04] MEDS: LOPRESSOR IVP ONE (19:34)
[2024-05-04] MEDS: LASIX IVP STA (19:53)
--- NOTE | 2024-05-04 19:56 | PCM.PROG ---
Provider contacted by RN around 1900 for patient complaining of crushing chest pain and shortness of breath during breathing treatment. HR elevated in 130s on telemetry and BP elevated when vitals were checked. Orders for EKG given and patient was found to be in Afib RVR at a rate of [address] depression V3-V6. Orders for stat troponin and bnp given as well as metoprolol 5 mg IVP and morphine 2 mg IVP. Following metoprolol HR has improved to 90s. Symptoms have resolved. First troponin is negative, repeat will be completed at 90 min hieu. BNP found to be elevated in 6000s. Likely due to IV fluids given for renal function/colitis. IV fluids dc and orders for IV lasix intiated. Started on PO metoprolol 12.5 mg BID, eliquis 5 mg BID due to CHADVASC of 5, and echo ordered to be completed tomorrow.
[2024-05-04] MEDS: SOLU-MEDROL 40 MG IVP SCH (20:02)
[2024-05-04] MEDS: LEVAQUIN 750 MG/150 ML D5W 750 MG/150 ML BAG IV SCH (21:36)
[2024-05-04] MEDS: LOPRESSOR PO SCH (21:45)
[2024-05-04] MEDS: ELIQUIS PO SCH (21:46)
[2024-05-05 06:09] LABS: BASOPHILS % (AUTO) 0.1 % (0.0-3.0); HEMATOCRIT 29.6 % (42.0-52.0); HEMOGLOBIN 9.8 g/dl (14.0-18.0); IMMATURE GRANULOCYTE # (AUTO) 0.3 (0.0-1.0); IMMATURE GRANULOCYTE % (AUTO) 1.2 % (0.0-5.0); LYMPHOCYTES # (AUTO) 0.5 K/uL (0.60-3.4); LYMPHOCYTES % (AUTO) 2.3 (10.0-50.0); MEAN CORPUSCULAR HEMOGLOBIN 29.7 pg (27.0-31.0); MEAN CORPUSCULAR HGB CONC 33.1 (31.8-35.4); MEAN CORPUSCULAR VOLUME 89.7 fl (80.0-94.0); MONOCYTES # (AUTO) 0.9 K/uL (0.4-2.0); NEUTROPHILS # (AUTO) 21.7 K/ul (2.0-6.9); NEUTROPHILS % (AUTO) 92.4 % (42.2-75.2); PLATELET COUNT 254 10^3/uL (140-440); RDW COEFFICIENT OF VARIATION 18.6 % (11.6-14.8); WHITE BLOOD COUNT 23.41 K/ul (4.2-10.2)
[2024-05-05 06:22] LABS: ALANINE AMINOTRANSFERASE 12.2 U/L (0-50); ALBUMIN 3.15 g/dL (3.5-5.0); ALKALINE PHOSPHATASE 61.7 U/L (56-119); ASPARTATE AMINO TRANSFERASE 52.1 U/L (17-59); BILIRUBIN,TOTAL 0.63 mg/dL (0.2-1.3); BLOOD UREA NITROGEN 55.3 mg/dL (9-20); CALCIUM 8.83 mg/dL (8.4-10.2); CARBON DIOXIDE 23.6 mmol/L (22-30.0); CHLORIDE 107.3 mmol/L (98-107); CREATININE 1.52 mg/dL (0.60-1.10); GLUCOSE 153.1 mg/dL (74-106); POTASSIUM 4.09 mmol/L (3.5-5.1); SODIUM 137.9 mmol/L (134.5-145); TOTAL PROTEIN 6.2 g/dL (6.3-8.2)
[2024-05-05] MEDS: LASIX IVP SCH (06:25)
[2024-05-05 06:26] LABS: ANISOCYTOSIS OCCASIONAL (NOT PRESENT); POIKILOCYTOSIS OCCASIONAL (NOT PRESENT)
[2024-05-05 06:34] LABS: TROPONIN I 0.336 ng/ml (0.0000-0.120)
[2024-05-05] MEDS: LOVENOX SUBCUT SCH (08:32)
[2024-05-05] MEDS: ASPIRIN EC PO SCH (08:33)
[2024-05-05] MEDS: APRESOLINE PO STA (10:26)
--- NOTE | 2024-05-05 11:47 | PCM.PROG ---
Date/Time Seen Date Seen by Provider: 05/05/24 Time Seen by Provider: 08:30 Provider [facility] Chief Complaint Chief Complaint: COPD/CHOLEITIS Subjective Subjective: No further episodes of chest pain and shortness of breath. Metoprolol controlling heart rate appropriately at this time. Troponins trended up overni ght. Echo ordered for today. Discussed this with patient and reports that over the last year he had a stay [facility] and required heart cath with stents. Stenting completed by Dr. Ashby 09/2023 per [facility] Chart. Does not wish to be transferred or undergo intervention if echo is abnormal. Still having lower abdominal pressure and now having loose stools again. Urine output improved with catheter and lasix. Objective Appearance: Positive No Apparent Distress, Alert and Oriented x3 and Ill- Appearing Chest/Lungs: Positive Symmetrical With Equal Breath Sounds, Clear to Auscultation Bilaterally and Good Air Movement all 4 Lung [place] Heart: Positive Pulses Normal and Irregular Rhythm GI/: Positive Soft, Bowel Sounds Normal, No Distention and Tender (bilateral lower quadrants) Musculoskeletal: Positive Not Examined Neurological: Positive Sensation Intact, Motor intact, Alert and Oriented Vital Signs Vital Signs: Vital Signs: Last 24 Hours 05/04/24 13:00 05/04/24 13:11 05/04/24 14:00 Temperature 98.5 F Temperature Source Temporal Artery Scan Pulse Rate 89 Respiratory Rate 17 Blood Pressure 153/64 H Blood Pressure Mean 93 Blood Pressure Location Right Arm Blood Pressure Position Supine O2 Sat by Pulse Oximetry 94 L Oxygen Delivery Method Room Air Room Air Oxygen Flow Rate Weight Telemetry Type Remote Telemetry Telemetry Monitoring Continues Telemetry Heart Rate 80 Telemetry SPO2 97 EKG MT Interval 0.18 EKG QRS Interval 0.08 Telemetry Strip Reading SR with PVC 05/04/24 17:37 05/04/24 19:00 05/04/24 20:00 Temperature 98.9 F Temperature Source Oral Pulse Rate 82 Respiratory Rate 18 Blood Pressure 133/70 Blood Pressure Mean 91 Blood Pressure Location Right Arm Blood Pressure Position Sitting O2 Sat by Pulse Oximetry 94 L Oxygen Delivery Method Room Air Room Air Oxygen Flow Rate Weight Telemetry Type Remote Telemetry Telemetry Monitoring Continues Telemetry Heart Rate 137 H Telemetry SPO2 98 EKG MT Interval 0.08 L EKG QRS Interval 0.[address] 05/04/24 20:15 05/04/24 21:52 05/05/24 00:49 Temperature 99.4 F Temperature Source Temporal Artery Scan Pulse Rate 77 Respiratory Rate 20 Blood Pressure 151/63 H Blood Pressure Mean 92 Blood Pressure Location Left Arm Blood Pressure Position Sitting O2 Sat by Pulse Oximetry 98 96 Oxygen Delivery Method Nasal Cannula Room Air Oxygen Flow Rate 2 Weight Telemetry Type Remote Telemetry Telemetry Monitoring Continues Telemetry Heart Rate 73 Telemetry SPO2 99 EKG MT Interval 0.19 EKG QRS Interval 0.06 Telemetry Strip Reading SR WITH PAC'S 05/05/24 02:00 05/05/24 05:22 05/05/24 05:37 Temperature 98.4 F 97.8 F Temperature Source Temporal Artery Scan Oral Pulse Rate 77 113 H Respiratory Rate 18 20 Blood Pressure 110/67 148/89 H Blood Pressure Mean 81 108 Blood Pressure Location Left Arm Left Arm Blood Pressure Position Supine Supine O2 Sat by Pulse Oximetry 95 99 97 Oxygen Delivery Method Nasal Cannula Nasal Cannula Nasal Cannula Oxygen Flow Rate 2 2 2 Weight Telemetry Type Telemetry Monitoring Telemetry Heart Rate Telemetry SPO2 EKG MT Interval EKG QRS Interval Telemetry Strip Reading 05/05/24 05:38 05/05/24 07:00 05/05/24 08:19 Temperature Temperature Source Pulse Rate Respiratory Rate Blood Pressure Blood Pressure Mean Blood Pressure Location Blood Pressure Position O2 Sat by Pulse Oximetry Oxygen Delivery Method Oxygen Flow Rate Weight 73.5 kg 73.5 kg Telemetry Type Remote Telemetry Telemetry Monitoring Continues Telemetry Heart Rate 99 Telemetry SPO2 98 EKG MT Interval 0.20 EKG QRS Interval 0.08 Telemetry Strip Reading SR with PACs and PVC 05/05/24 09:17 05/05/24 10:00 Temperature 98.7 F Temperature Source Temporal Artery Scan Pulse Rate 79 Respiratory Rate 18 Blood Pressure 181/69 H Blood Pressure Mean 106 Blood Pressure Location Left Arm Blood Pressure Position Supine O2 Sat by Pulse Oximetry 96 97 Oxygen Delivery Method Nasal Cannula Room Air Oxygen Flow Rate 2 Weight Telemetry Type Telemetry Monitoring Telemetry Heart Rate Telemetry SPO2 EKG MT Interval EKG QRS Interval Telemetry Strip Reading Lab Results Lab Results: Lab Results: Last 24 Hours 05/05/24 05/05/24 05/04/24 06:04 00:05 21:00 WBC 23.41 H RBC 3.30 L Hgb 9.8 L Hct 29.6 L MCV 89.7 MCH 29.7 MCHC 33.1 RDW Coeff of Sri 18.6 H Plt Count 254 Immature Gran % (Auto) 1.2 Neut % (Auto) 92.4 H Lymph % (Auto) 2.3 L [place] % (Auto) 4.0 Eos % (Auto) 0.0 Baso % (Auto) 0.1 Neut # (Auto) 21.7 H Lymph # (Auto) 0.5 L [place] # (Auto) 0.9 Eos # (Auto) 0.0 Baso # (Auto) 0.0 Immature Gran # (Auto) 0.3 Poikilocytosis Occasional Anisocytosis Occasional Sodium 137.9 Potassium 4.09 Chloride 107.3 H Carbon Dioxide 23.6 Anion Gap 11.09 BUN 55.3 H Creatinine 1.52 H Estimated GFR (MDRD) 44.00 BUN/Creatinine Ratio 36.38 Glucose 153.1 H Calcium 8.83 Total Bilirubin 0.63 AST 52.1 ALT 12.2 Alkaline Phosphatase 61.7 Troponin I 0.336 H 0.170 H 0.067 NT-Pro-B Natriuret Pep Total Protein 6.20 L Albumin 3.15 L Globulin 3.05 Albumin/Globulin Ratio 1.03 Procalcitonin 7.74 H 05/04/24 05/04/24 19:04 16:05 WBC RBC Hgb Hct MCV MCH MCHC RDW Coeff of Sri Plt Count Immature Gran % (Auto) Neut % (Auto) Lymph % (Auto) [place] % (Auto) Eos % (Auto) Baso % (Auto) Neut # (Auto) Lymph # (Auto) [place] # (Auto) Eos # (Auto) Baso # (Auto) Immature Gran # (Auto) Poikilocytosis Anisocytosis Sodium 135.5 Potassium 4.06 Chloride 107.2 H Carbon Dioxide 22.5 Anion Gap 9.86 BUN 58.0 H Creatinine 1.59 H Estimated GFR (MDRD) 42.00 BUN/Creatinine Ratio 36.47 Glucose 158.4 H Calcium 8.29 L Total Bilirubin AST ALT Alkaline Phosphatase Troponin I 0.034 NT-Pro-B Natriuret Pep 6250 H Total Protein Albumin Globulin Albumin/Globulin Ratio Procalcitonin Additional Comments Additional Comments: I have independently reviewed and interpreted the labs/EKGs/imaging ordered during this hospital stay. I have reviewed outside records that are available in our EMR that pertain to medical stay including imaging/notes/labs from previous visits. Active Medications Active Medications: Medications Generic Name Dose Route Start Last Admin Trade Name Freq PRN Reason Stop Dose Admin Acetaminophen 650 mg 05/02/24 20:44 Acetaminophen 325 Mg Tablet PO Q4H PRN Mild Pain Albuterol Sulfate 2.5 mg 05/02/24 20:48 Albuterol Sulfate 0.083% Vial.Neb NEB RTQ4H PRN Wheezing Allopurinol 100 mg 05/03/24 09:00 05/05/24 08:39 Allopurinol 100 Mg Tablet PO 100 mg DAILY BERYL Administration Amlodipine Besylate 5 mg 05/03/24 09:00 05/05/24 08:34 Amlodipine Besylate 5 Mg Tablet PO 5 mg DAILY BERYL Administration Aspirin 81 mg 05/05/24 07:30 05/05/24 08:33 Aspirin 81 Mg Tablet. PO 81 mg DAILYWM2 BERYL Administration Atorvastatin Calcium 40 mg 05/02/24 21:00 05/04/24 20:23 Atorvastatin Calcium 20 Mg Tablet PO 40 mg BEDTIME BERYL Administration Docusate Sodium 100 mg 05/03/24 12:21 Docusate Sodium 100 Mg Capsule PO BID PRN Constipation Enoxaparin Sodium 70 mg 05/05/24 09:00 05/05/24 08:32 Enoxaparin Sodium 100 Mg/Ml Syr SUBCUT 70 mg Q12HR BERYL Administration Furosemide 20 mg 05/05/24 06:00 05/05/24 06:25 Furosemide Inj 20 Mg/2 Ml Vial IVP 20 mg BIDAC2 BERYL Administration Isosorbide Mononitrate 30 mg 05/03/24 09:00 05/05/24 08:33 Isosorbide Mononitrate 30 Mg Tab.Er.24h PO 30 mg DAILY BERYL Administration Levofloxacin 750 mg 05/06/24 21:00 Levofloxacin 500 Mg Tablet PO 05/06/24 21:01 ONCE ONE Levothyroxine Sodium 112 mcg 05/03/24 06:00 05/05/24 05:09 Levothyroxine Sodium 112 Mcg Tablet PO 112 mcg QDAC2 BERYL Administration Loratadine 10 mg 05/03/24 09:00 05/05/24 08:33 Loratadine 10 Mg Tablet PO 10 mg DAILY BERYL Administration Metoprolol Tartrate 12.5 mg 05/04/24 21:00 05/05/24 08:34 Metoprolol Tartrate 25 Mg Tablet PO 12.5 mg BID BERYL Administration Metronidazole 500 mg 05/05/24 13:00 Metronidazole 250 Mg Tablet PO 05/08/24 12:59 Q8HR BERYL Ondansetron HCl 4 mg 05/02/24 20:44 Ondansetron Hcl/Pf 4 Mg/2 Ml Sdv IVP Q6H PRN Nausea / Vomiting Saccharomyces Boulardii 250 mg 05/02/24 21:00 05/05/24 08:33 Saccharomyces Boulardii 250 Mg Capsule PO 250 mg BID BERYL Administration Sodium Chloride 1 syr 05/03/24 05:00 05/05/24 05:12 0.9% Sodium Chloride 10 Ml Disp.Syrin IVF 1 syr Q8HR BERYL Administration Tramadol HCl 50 mg 05/02/24 20:54 Tramadol Hcl 50 Mg Tablet PO Q8H PRN Pain Plan Plan: 1. Sepsis - Ruled, out - blood cultures negative x 48 hours, elevated procal and WBC, no fever, did not receive fluid bolus due to CHF 2. Acute Hypoxic Respiratory Failure in setting of COPD exacerbation - Resolved, on RA, weaned from O2, stopping nebs and steroids 3. COPD Exacerbation - Resolved, lungs clear, last dose of levaquin tomorrow 4. Mild diffuse colitis - Worsened, no recent abx use/concern for c. diff, diarrhea stools returned, checking KUB to r/o obstruction 5. Rectal impaction - glycerin suppository administered last night, large hard formed BM noted, will add stool softener prn and recommend for at home use, checking KUB to see if resolution due to continued abd pain 6. Acute on Chronic Renal Failure - Improving, creatinine 1.5, baseline 1.2-1.3, avoid nephrotoxins/hypotension, bladder scan showed residual urine post-void, craft catheter placed 7. CHF - BNP elevated, started lasix 20 mg IVP BID, weigh daily, I&O 8. New onset A fib - RVR resolved with IVP metoprolol; started metoprolol 12.5 b id, lovenox 1mg/kg bid, and echo today DVT Prophylaxis: ASA Review Statement Review Statement: I have personally discussed and reviewed the patient's visit/currently labs/imaging/decision making with Dr. Bay, my supervising attending. Greater that 50 minutes spent with patient, 50% of the time spent with this patient was devoted to counseling and coordination of care.
--- NOTE | 2024-05-05 12:44 | DI ---
EXAM: ONE VIEW ABDOMEN RADIOGRAPH. HISTORY: Abdominal pain. TECHNIQUE: One view. AP supine. COMPARISON: None. FINDINGS: The bowel gas pattern is non-obstructive. No large mass is identified. There are no abnormal calcifications overlying the urinary tracts. Moderate diffuse arterial calcifi cations. Multilevel degenerative changes lumbar spine. Multiple old, healed left rib fractures. Surgical clips in the right upper quadrant. IMPRESSION: 1. Nonobstructive bowel gas pattern.
[2024-05-05] MEDS: FLAGYL PO SCH (13:02)
[2024-05-05] MEDS: LOPRESSOR PO ONE (13:03)
[2024-05-05] MEDS: LOPRESSOR IVP ONE (15:46)
[2024-05-05] MEDS: XANAX PO PRN (15:47)
[2024-05-05] MEDS: MUCINEX PO SCH (20:36)
[2024-05-05] MEDS: ULTRAM PO PRN (20:36)
[2024-05-05 20:53] VITALS: RESP 18
[2024-05-06 05:17] VITALS: BP 171/86; TEMP 97.5
[2024-05-06 05:29] LABS: BASOPHILS % (AUTO) 0.1 % (0.0-3.0); HEMATOCRIT 29.5 % (42.0-52.0); HEMOGLOBIN 9.7 g/dl (14.0-18.0); IMMATURE GRANULOCYTE # (AUTO) 0.2 (0.0-1.0); IMMATURE GRANULOCYTE % (AUTO) 0.8 % (0.0-5.0); LYMPHOCYTES # (AUTO) 1.1 K/uL (0.60-3.4); LYMPHOCYTES % (AUTO) 4.9 (10.0-50.0); MEAN CORPUSCULAR HEMOGLOBIN 29.6 pg (27.0-31.0); MEAN CORPUSCULAR HGB CONC 32.9 (31.8-35.4); MEAN CORPUSCULAR VOLUME 89.9 fl (80.0-94.0); MONOCYTES # (AUTO) 1.3 K/uL (0.4-2.0); NEUTROPHILS # (AUTO) 18.8 K/ul (2.0-6.9); NEUTROPHILS % (AUTO) 88.2 % (42.2-75.2); PLATELET COUNT 256 10^3/uL (140-440); RDW COEFFICIENT OF VARIATION 18.6 % (11.6-14.8); RED BLOOD COUNT 3.28 10^6/ul (4.70-6.10); WHITE BLOOD COUNT 21.35 K/ul (4.2-10.2)
[2024-05-06 05:44] LABS: ALBUMIN 2.9 g/dL (3.5-5.0); ALKALINE PHOSPHATASE 68.7 U/L (56-119); ASPARTATE AMINO TRANSFERASE 34.4 U/L (17-59); BILIRUBIN,TOTAL 0.45 mg/dL (0.2-1.3); CALCIUM 8.91 mg/dL (8.4-10.2); CARBON DIOXIDE 28.9 mmol/L (22-30.0); CREATININE 1.5 mg/dL (0.60-1.10); GLUCOSE 108.2 mg/dL (74-106); POTASSIUM 3.84 mmol/L (3.5-5.1); SODIUM 139.8 mmol/L (134.5-145); TOTAL PROTEIN 5.92 g/dL (6.3-8.2)
[2024-05-06 05:52] LABS: BLOOD UREA NITROGEN 61.1 mg/dL (9-20)
--- NOTE | 2024-05-06 09:06 | DCSUM ---
Admission Date Admission Date: 05/02/24 Discharge Date Discharge Date: 05/06/24 Admission Diagnosis Admission Diagnosis: 1. Sepsis 2. Acute Hypoxic Respiratory Failure in setting of COPD exacerbation 3. COPD Exacerbation 4. Mild diffuse colitis 5. Rectal impaction 6. Acute on Chronic Renal Failure 7. CHF Discharge Diagnosis Discharge Diagnosis: 1. Sepsis - Ruled out 2. Acute Hypoxic Respiratory Failure in setting of COPD exacerbation - Resolved 3. COPD Exacerbation - Resolved 4. Mild diffuse colitis - Improving 5. Rectal impaction - Resolved 6. Acute on Chronic Renal Failure - Improving 7. CHF - Improving 8. New onset A fib - Stable Hospital Provider Hospital [facility] Primary Care Physician Primary Care Physician: JAZZMINE MACIEL Summary of History and Physical Summary of History and Physical: 83 yo male presents to the ER with pmh of copd, chronic diarrhea, chf, and hypertension with lower abdominal pain and shortness of breath x 1 week. Was seen in the ER 2 days ago for hip pain/abdominal pain. Work-up was negative and patient was discharged home. Returned with lower abdominal pain and shortness of breath. O2 sat was dropping down into low 90s. O2 on ABG was 56. He was placed on 2L. Denies any fever that he is aware of. Denies any nausea, vomiting, congestion, or other symptoms. Had small episode of diarrhea in the ER and was given imodium. CT abd pelvis completed and showed mild colitis and constipation with fecal impaction. Chest x-ray clear. WBC elevated at 14. He was given rocephin, steroids, and nebs in ER. Admitted to med/surg observation. Hospital Course Subjective: During stay, sepsis was ruled out due to elevated WBC and procal. Blood cultures negative. He was initially treated for acute hypoxic respiratory failure in setting of COPD exacerbation. He was requiring 2L of oxygen and was able to be weaned to RA in addition to nebs and steroids. Treated COPD exacerbation with levaquin as well. Colitis was treated with levaquin and flagyl. Had no recent antibiotics and no further diarrhea stools after rectal impaction was resolved. Yesterday, had frequent diarrhea stools. Checked C diff which was negative as well as rotavirus and stool culture. Stool culture was positive for campylobacter. Patient has been treated for this in the past and is likely recontaminating himself with something in his home. Discussed cleaning methods and possible types of transmission. Levaquin and flagyl covered campylobacter. Sent with Rx for rest of course of flagyl. Renal function steadily increased despite IV fluids. Post-void bladder scan showed residual urine approx. 400 mL. Franco catheter placed. Renal function steadily improved. Creatinine down to 1.5 today. Received lasix due to below and BUN slightly elevated this am. On 05/04, patient developed sudden onset chest pain and shortness of breath. He was found to be in afib RVR at rate of 130s. He was given 1 dose of 5 mg IVP metoprolol which resolved. He was started on lovenox, po metoprolol, and echo was completed. BNP was also elevated in 6000s. IV lasix was started 20 mg BID. Troponins trended up from 0.03 to 0.3 over 12 hour period. Likely due to A fib. Discussed plan of care with patient and he did not wish to be transferred for cardiology and potential heart cath if echo showed abnormalities. Echo did not show further changes in EF compared to previous. No signs of ischemia. Patient diuresed well and transition to PO lasix starting tomorrow. Discussed with patient renal function could use time to improve and offered further stay in hospital and patient refused. Requesting to go home at this time. No changes to previously prescribed medications. New medications: eliquis and metoprolol; flagyl x 2 days for completion of course for campylobacter. Appearance: Pleasant, No Apparent Distress and Alert HEENT: MMM, Supple and No JVD CVS: No Murmur Abdomen: Soft, Non-Tender and No Distention Respiratory: No Dyspnea Extremities: No Edema Vital Signs: Most Recent Vital Signs Temperature 97.5 F L 05/06/24 05:16 Temperature Source Temporal Artery Scan 05/06/24 05:16 Temperature Source Infrared 05/02/24 14:44 Pulse Rate 57 L 05/06/24 05:16 Respiratory Rate 18 05/06/24 05:16 Blood Pressure 171/86 H 05/06/24 05:16 Blood Pressure Mean 114 05/06/24 05:16 Blood Pressure Left Arm 127/73 05/02/24 20:09 Blood Pressure Location Left Arm 05/06/24 05:16 Blood Pressure Position Supine 05/06/24 05:16 O2 Sat by Pulse Oximetry 95 08/30/24 05:44 Oxygen Delivery Method Room Air 05/06/24 05:44 Oxygen Flow Rate 2 05/05/24 17:18 Height 6 ft 1 in 05/03/24 11:05 Weight 72.3 kg 05/06/24 05:18 Telemetry Type Remote Telemetry 05/06/24 07:00 Telemetry Monitoring Continues 05/06/24 07:00 Telemetry Heart Rate 62 05/06/24 07:00 Telemetry SPO2 97 05/06/24 07:00 EKG MA Interval 0.16 05/06/24 07:00 EKG QRS Interval 0.08 05/06/24 07:00 Telemetry Strip Reading SA 05/06/24 07:00 Lab Results Last 24 Hours: 05/06/24 04:50 WBC 21.35 H RBC 3.28 L Hgb 9.7 L Hct 29.5 L MCV 89.9 MCH 29.6 MCHC 32.9 RDW Coeff of Sri 18.6 H Plt Count 256 Immature Gran % (Auto) 0.8 Neut % (Auto) 88.2 H Lymph % (Auto) 4.9 L [place] % (Auto) 6.0 Eos % (Auto) 0.0 Baso % (Auto) 0.1 Neut # (Auto) 18.8 H Lymph # (Auto) 1.1 [place] # (Auto) 1.3 Eos # (Auto) 0.0 Baso # (Auto) 0.0 Immature Gran # (Auto) 0.2 Sodium 139.8 Potassium 3.84 Chloride 108.0 H Carbon Dioxide 28.9 Anion Gap 6.74 BUN 61.1 H* Creatinine 1.50 H Estimated GFR (MDRD) 45.00 BUN/Creatinine Ratio 40.73 Glucose 108.2 H Calcium 8.91 Total Bilirubin 0.45 AST 34.4 ALT 11.0 Alkaline Phosphatase 68.7 Total Protein 5.92 L Albumin 2.90 L Globulin 3.02 Albumin/Globulin Ratio 0.96 Discharge Instructions Discharge Planning: Discharge Planning > 40 minutes If patient is discharged with left ventricular systolic dysfunction: NA Discharged with a beta perry? [] If no, why not? [] Discharged with an carlos/arb? [] If no, why not? [] Diagnosis: Afib, Campylobacter infection, Urinary retention, CHF exacerbation Diet: Regular Activity as tolerated Follow-up with PCP next week. NEW Medications: (sent to [facility]) Eliquis 5 mg twice a day (blood thinner for Atrial fibrillation) Metoprolol 12.5 mg twice a day (Atrial fibrillation Flagyl 500 mg every 8 hours until completed for Campylobacter infection YOU HAVE BEEN REFERRED TO [facility], THEY WILL BE IN CONTACT WITH YOU TO SCHEDULE AN APPOINTMENT. Discharge Medications: Medications at Discharge (Home Meds & RX) allopurinol 100 mg tablet 100 mg PO DAILY 06/25/23 amlodipine 10 mg tablet 5 mg PO DAILY 06/25/23 aspirin 81 mg tablet,delayed release (Lor Low Dose Aspirin) 81 mg PO DAILY 06/25/23 atorvastatin 80 mg tablet 40 mg PO BEDTIME 06/25/23 isosorbide mononitrate 30 mg tablet,extended release 24 hr 30 mg PO DAILY 06/25/23 levothyroxine 112 mcg tablet (Euthyrox) 112 mcg PO DAILY 06/25/23 loratadine 10 mg tablet (Allerclear) 10 mg PO DAILY 06/25/23 magnesium oxide 400 mg PO DAILY 06/25/23 nitroglycerin 0.4 mg sublingual tablet 0.4 mg sublingual Q5-15M PRN chest pain 06/25/23 omega 7-lzu-gop-fish oil 300 mg-1,000 mg capsule (Fish Oil) 1 cap PO DAILY 06/25/23 furosemide 20 mg tablet 20 mg PO DAILY 08/27/23 Saccharomyces boulardii 250 mg capsule (Florastor) 250 mg PO BID #20 caps 10/11/23 ondansetron 4 mg disintegrating tablet 4 mg PO Q6H PRN nausea and vomiting #30 tabs 10/11/23 tramadol 50 mg tablet 50 mg PO Q8H PRN pain #14 tabs 04/30/24 Discharge Plan Discharge Discharge Orders: Discharge Patient (ONCE); Ordered 05/06/24 Ordered By: PINEDA MACIEL Activity Restrictions/Additional Instructions: Diagnosis: Afib, Campylobacter infection, Urinary retention, CHF exacerbation Diet: Regular Activity as tolerated Follow-up with PCP next week. NEW Medications: (sent to [facility]) Eliquis 5 mg twice a day (blood thinner for Atrial fibrillation) Metoprolol 12.5 mg twice a day (Atrial fibrillation Flagyl 500 mg every 8 hours until completed for Campylobacter infection YOU HAVE BEEN REFERRED TO [facility], THEY WILL BE IN CONTACT WITH YOU TO SCHEDULE AN APPOINTMENT. Instructions: Heart Failure (GEN), A-fib (Atrial Fibrillation) (IP), Franco Catheter Placement and Care (GEN), Infectious Colitis (GEN) Patient Disposition: HOME WITH FAMILY CARE Prescriptions: New metronidazole 250 mg Tablet 500 mg PO Q8HR 2 Days Qty: 12 0RF metoprolol tartrate 25 mg Tablet 12.5 mg PO BID Qty: 30 0RF Eliquis 5 mg tablet 5 mg PO BID Qty: 60 0RF Continued furosemide 20 mg tablet 20 mg PO DAILY tramadol 50 mg tablet 50 mg PO Q8H PRN (Reason: pain) Qty: 14 0RF omega 2-jkh-tga-fish oil [Fish Oil] 300-1,000 mg capsule 1 cap PO DAILY aspirin [Lor Low Dose Aspirin] 81 mg tablet,delayed release (DR/EC) 81 mg PO DAILY levothyroxine [Euthyrox] 112 mcg tablet 112 mcg PO DAILY loratadine [Allerclear] 10 mg tablet 10 mg PO DAILY atorvastatin 80 mg tablet 40 mg PO BEDTIME allopurinol 100 mg tablet 100 mg PO DAILY amlodipine 10 mg tablet 5 mg PO DAILY isosorbide mononitrate 30 mg tablet extended release 24 hr 30 mg PO DAILY magnesium oxide 400 mg magnesium capsule 400 mg PO DAILY nitroglycerin 0.4 mg tablet, sublingual 0.4 mg sublingual Q5-15M PRN (Reason: chest pain) Rx Instructions: do not exceed 3 doses per episode Saccharomyces boulardii [Florastor] 250 mg Capsule 250 mg PO BID Qty: 20 0RF ondansetron 4 mg tablet,disintegrating 4 mg PO Q6H PRN (Reason: nausea and vomiting) Qty: 30 0RF Did you review [place] [employer] for ALL controlled substances?: No Discussed opioids are addictive and Narcan is available by prescription or from pharmacy.: No Condition: Stable Referrals: JAZZMINE MACIEL [Primary Care Provider] - 05/11/24 11:15 am
--- NOTE | 2024-05-06 09:25 | ECHO2D ---
Date of Exam: 05/05/2024 Ordering Physician: Betty HECK/ PCP WALKER Room #: 112 Reason for Echo: A-FIB, CHEST PAIN, SOB, ELEVATED BNP, RENAL FAILURE, COPD, HTN, DM, CAD M-Mode Normal Adult Results LV Dimensions Normal Adult Results AoV Opening excursions >1.6 1.3 LVEDD-base- 3.5-5.8 4.6 Ao root dimensions 2.0-3.7 3.2 LVESD-base- 3.1-4.6 L. Atrium dimensions 1.9-3.8 5.0 Post. Wall thickness 0.8-1.1 1.4 IV septum (thickness) 0.7-1.2 1.4 Post. Wall excursion 0.72-1.3 NORMAL Septal motion NORMAL Systolic motion R. Ventricular cavity 1.5-2.0 NORMAL LVEF 60% 58% Paradoxical septal wall motion NORMAL 2-D : ENLARGED LEFT ATRIAL CAVITY--CALCIFIC AORTIC VALVES--CALCIFIC MITRAL VALVE ANNULUS--NO EFFUSION, NO THROMBUS, NORMAL LEFT VENTRICLE SIZE AND CONTRACTILITY M-MODE: MV: CALCIFIC MITRAL VALVE ANNULUS AV: CALCIFIC AORTIC VALVES--MILD AORTIC STENOSIS TV: NORMAL PV: NORMAL CHAMBER SIZE: ENLARGED LEFT ATRIAL CAVITY WALL MOTION: NORMAL PERICARDIUM: NORMAL INTERPRETATION: 1. LEFT VENTRICLE HYPERTROPHY WITH ENLARGED LEFT ATRIAL CAVITY 2. CALCIFIC AORTIC STENOSIS- MILD 3. CALCIFIC MITRAL VALVE ANNULUS 4. NORMAL LEFT VENTRICLE SIZE AND LEFT VENTRICLE CONTRACTILITY MTDD
[2024-05-06 11:39] VITALS: PULSE 68
[2024-05-06] MEDS ORDERED: LEVAQUIN PO ONE (21:00)
== END 2024-05-06 10:50 | disposition home or self-care (01) | DRG 190 ==
LOC: MEDSURG B 14:43 → ED 14:43 → MEDSURG B 20:20
PROVIDERS: ADMIT Hospitalist; ATTEND Nurse Practitioner Family

== ENCOUNTER 2024-06-12 00:07 | Inpatient (IN) ==
[2024-06-12 00:45] LABS: ABG O2 HGB 88.1 % (95-100); ABG PH 7.42 (7.35-7.45); BEecf 4.7 (-2.0-3.0); COHb 4.4 (0.5-1.5); HCO3 29.2 (21-28); MetHb 0.4 (0-1.5); TCO2 30.6 (19-24); sO2 92.8 % (94-98); tHb 9.9 g/dl (11.7-17.4)
--- NOTE | 2024-06-12 00:46 | ED.PDOC ---
General ED Provider: Dr. JENNIFER PEREZ Chief Complaint: Shortness of Air Stated Complaint: Patient is an 84 chronic Smoker of 1ppd for many years who has had multiple COPD exacerbation most recent was last week when he was admitted to [facility] in [place] for 5 days. Comes to the the Er with complaints of progressive shortness of breath. Denies Previous intubations. Does not use oxygen at home Time Seen by Provider: 06/12/24 00:41 Mode of Arrival: Ambulance Information Source: Patient Exam Limitations: No limitations Primary Care Provider: JAZZMINE MACIEL Nursing and Triage Documentation Reviewed and Agree: Yes Does Patient Take Opioids?: No Is Patient Opioid Naive?: No What is Opioid Naive?: *Opioid Naive implies the patient is not already taking opioids or not chronically receiving opioids on a daily basis. *PRN dosing is not "usually" associated with tolerance. *Patients are at higher risk of over-sedation and aspiration. What is Opioid Tolerant?: *Opioid Tolerance implies less than the expected response to an opioid. *Acquired tolerance is defined by the patient taking 60mg of oral morphine daily (or equianalgesic dose of another opioid) for 1 week or more. *Often associated with chronic pain. *May take more than usual dose to achieve desired pain control. Review of Systems Review Of Systems Constitutional: Reports No symptoms Ears, Nose, Mouth, Throat: Reports No symptoms Respiratory: Reports Cough and Shortness of Breath Cardiac: Reports No symptoms GI: Reports No symptoms : Reports No symptoms Skin: Reports No symptoms Neurological: Reports Anxiety All Other Systems: Reviewed and Negative [facility] Medical History History of aortic stenosis Z86.79 - Personal history of other diseases of the circulatory system (ICD- 10) Bilateral carotid artery disease I77.9 - Disorder of arteries and arterioles, unspecified (ICD-10) Depression F32.A - Depression, unspecified (ICD-10) Anxiety F41.9 - Anxiety disorder, unspecified (ICD-10) COPD (chronic obstructive pulmonary disease) J44.9 - Chronic obstructive pulmonary disease, unspecified (ICD-10) Hyperlipidemia E78.5 - Hyperlipidemia, unspecified (ICD-10) Anemia D64.9 - Anemia, unspecified (ICD-10) Hypothyroidism E03.9 - Hypothyroidism, unspecified (ICD-10) Diabetes E11.9 - Type 2 diabetes mellitus without complications (ICD-10) Myocardial infarct March 2023 I21.9 - Acute myocardial infarction, unspecified (ICD-10) Hypertension I10 - Essential (primary) hypertension (ICD-10) Family History Other No known health problems Social History Smoking and tobacco status: Current every day smoker Tobacco type: cigarettes Smoking packs per day: 1 Smoking cigarettes per day: 20.0 Quit status: considering quitting Substance use type: does not use Special elio needs: No Agree to transfusion: Yes Adopted: No Caregiver/support person: Yes Foster care: No Household members: children Housing: house Marital status: W / Lives independently: Yes Daycare: no daycare Number of children: 1 Financial difficulty paying for basics: not very hard service: Yes senior living: No Current occupational status: retired History of recent travel: No Do you think of yourself as: straight/heterosexual Current gender identity: male Seatbelt use: always Helmet use: Yes Drives intoxicated or rides with intoxicated 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 Surgical History History of coronary artery stent placement Z95.5 - Presence of coronary angioplasty implant and graft (ICD-10) Status post spinal disc removal Z98.890 - Other specified postprocedural states (ICD-10) 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 - Acquired absence of other parts of urinary tract (ICD-10) Physical Exam Physical Exam Appearance: Reports Ill-appearing Eyes: Reports KINSEY, EOMI and Conjunctiva clear Respiratory: Reports Breath sounds diminished, Rhonchi and Wheezes Cardiovascular: Reports RRR, Pulses normal and No rub Musculoskeletal: Reports Normal strength, ROM intact and No edema Skin: Reports Warm and Dry Neurological: Reports Motor intact Psychiatric: Reports Anxious Interpretation EKG Interpretation EKG Interpretation By: ED Physician Time of EKG #1: 00:18 Rate: Normal Rhythm: Other (Atrial Fibrillation ) Ectopy: None [place]: [place] ST Segment: Normal Interpretation: Afib with Slow ventricular response. Radiology Interpretation Radiology Interpretation By: Radiologist Radiology Results: No acute changes Exam Interpreted: Portable CXR Re-Evaluation Re-Evaluation Time of Re-Evaluation: 01:44 Status: Improved Vital Signs Stable: Yes Physician Notification Case Discussed Physician Notified: Nory MONTELONGO Time of Notification: 01:35 (agrees to admit to the Hospital for observation ) Critical Care Note Critical Care Note Total Critical Care Time (mins): 30 Comments: managing Severe COPD and CHF exacerbation Course Course 06/12/24 00:41 06/12/24 00:41 Orders, Labs, Meds: Lab Review 06/12/24 06/12/24 06/12/24 00:35 00:40 00:41 WBC 8.26 RBC 2.96 L Hgb 8.4 L Hct 27.4 L MCV 92.6 MCH 28.4 MCHC 30.7 L RDW Coeff of Sri 23.0 H Plt Count 173 Immature Gran % (Auto) 0.4 Neut % (Auto) 63.3 Lymph % (Auto) 24.7 [place] % (Auto) 9.6 Eos % (Auto) 1.8 Baso % (Auto) 0.2 Neut # (Auto) 5.2 Lymph # (Auto) 2.0 [place] # (Auto) 0.8 Eos # (Auto) 0.2 Baso # (Auto) 0.0 Immature Gran # (Auto) 0.0 Puncture Site Rr Base Excess 4.7 H O2 Saturation 92.8 L ABG pH 7.42 ABG pCO2 45.0 ABG pO2 65.0 L ABG HCO3 29.2 H ABG Total CO2 30.6 H Ralph Test Pos Hemoglobin 0.4 Oxyhemoglobin 88.1 L Carboxyhemoglobin 4.4 H Total Hemoglobin 9.9 L O2 Delivery Device Cannula Oxygen Liter Flow 2.00 Sodium 136.7 Potassium 3.65 Chloride 101.0 Carbon Dioxide 29.5 Anion Gap 9.85 BUN 25.0 H Creatinine 1.25 H Estimated GFR (MDRD) 55.00 BUN/Creatinine Ratio 20.00 Glucose 172.7 H Lactic Acid 1.17 Calcium 7.95 L Total Bilirubin 0.66 AST 28.1 ALT 13.1 Alkaline Phosphatase 73.1 Total Creatine Kinase 43.9 L Troponin I 0.030 NT-Pro-B Natriuret Pep 90408 H Total Protein 6.13 L Albumin 2.95 L Globulin 3.18 Albumin/Globulin Ratio 0.92 Procalcitonin < 0.05 06/12/24 01:05 WBC RBC Hgb Hct MCV MCH MCHC RDW Coeff of Sri Plt Count Immature Gran % (Auto) Neut % (Auto) Lymph % (Auto) [place] % (Auto) Eos % (Auto) Baso % (Auto) Neut # (Auto) Lymph # (Auto) [place] # (Auto) Eos # (Auto) Baso # (Auto) Immature Gran # (Auto) Puncture Site Rr Base Excess 5.9 H O2 Saturation 91.8 L ABG pH 7.45 ABG pCO2 43.0 ABG pO2 60.0 L ABG HCO3 29.9 H ABG Total CO2 31.2 H Ralph Test Pos Hemoglobin 0.3 Oxyhemoglobin 88.5 L Carboxyhemoglobin 4.3 H Total Hemoglobin 8.0 L O2 Delivery Device Ra Oxygen Liter Flow Sodium Potassium Chloride Carbon Dioxide Anion Gap BUN Creatinine Estimated GFR (MDRD) BUN/Creatinine Ratio Glucose Lactic Acid Calcium Total Bilirubin AST ALT Alkaline Phosphatase Total Creatine Kinase Troponin I NT-Pro-B Natriuret Pep Total Protein Albumin Globulin Albumin/Globulin Ratio Procalcitonin Orders Category Date Time Status ABG DRAW REQUEST Stat CARDIO 06/12/24 01:01 Completed EKG-(ED ONLY) Stat CARDIO 06/12/24 00:41 Completed NEBULIZER TREATMENT Stat CARDIO 06/12/24 00:42 Completed ED APPLY O2 .ONCE EMERGENCY 06/12/24 00:41 Active ED PLANT OPERATIONS WORKER APPLIED .ONCE EMERGENCY 06/12/24 00:41 Active ED IV/MEDIPORT/POWERPORT .ONCE EMERGENCY 06/12/24 00:41 Active ABG COOX Stat LAB 06/12/24 00:35 Completed ABG COOX Stat LAB 06/12/24 01:05 Completed BLOOD CULTURE (ED ONLY) Stat LAB 06/12/24 00:41 Received CBC W/ AUTO DIFF Stat LAB 06/12/24 00:41 Completed COMPREHENSIVE METABOLIC PANEL Stat LAB 06/12/24 00:41 Completed CREATINE KINASE Stat LAB 06/12/24 00:41 Completed LACTIC ACID Stat LAB 06/12/24 00:41 Completed NT-PROBNP(ED) Stat LAB 06/12/24 00:40 Completed PROCALCITONIN Stat LAB 06/12/24 00:41 Completed RESPIRATORY PANEL 2.1 (PCR) Stat LAB 06/12/24 01:26 Ordered TROPONIN I Stat LAB 06/12/24 00:41 Completed 0.9 % Sodium Chloride [Saline Flush] Meds 06/12/24 00:41 Active 1 syr IVF PRN PRN Furosemide [Lasix] Meds 06/12/24 01:29 Once 40 mg IVP ONCE ONE Ipratropium/Albuterol Neb [Duoneb] Meds 06/12/24 00:41 Discontinued 3 ml NEB ONCE STA Methylprednisolone Sod Succ/Pf [Solu-Medrol 125 mg] Meds 06/12/24 00:41 Discontinued 125 mg IVP ONCE ONE CHEST, 1V AP ONLY Stat RADS 06/12/24 00:41 Completed Medications Generic Name Dose Route Start Last Admin Trade Name Freq PRN Reason Stop Dose Admin Sodium Chloride 1 syr 06/12/24 00:41 0.9% Sodium Chloride 10 Ml Disp.Syrin IVF PRN PRN To flush IV Discontinued Medications Generic Name Dose Route Start Last Admin Trade Name Freq PRN Reason Stop Dose Admin Albuterol/Ipratropium 3 ml 06/12/24 00:41 06/12/24 00:55 Ipratropium/Albuterol Vial.Neb NEB 06/12/24 00:42 3 ml ONCE STA Administration Methylprednisolone Sodium Succinate 125 mg 06/12/24 00:41 06/12/24 00:56 Methylprednisolone Sod Succ/Pf 125 Mg/2 Ml Vial IVP 06/12/24 00:42 125 mg ONCE ONE Administration Vital Signs: Temp Pulse Resp BP Pulse Ox O2 Flow Rate 06/12/24 01:25 93 31 H 159/82 H 95 1 06/12/24 00:09 2 06/12/24 00:09 97.8 F 102 H 26 H 147/60 H 92 L Discharge Plan Discharge Patient Disposition: PLACED OBSERVATION Discharge Problem: Acute exacerbation of chronic obstructive pulmonary disease Congestive heart failure Qualifiers: Heart failure type: unspecified Heart failure chronicity: unspecified Qualified Code(s): I50.9 - Heart failure, unspecified Did you review [place] [employer] for ALL controlled substances?: Not Applicable ED Provider: JENNIFER PEREZ Condition: Fair
[2024-06-12] MEDS: DUONEB NEB STA (00:55)
[2024-06-12] MEDS: SOLU-MEDROL 125 MG IVP ONE (00:56)
[2024-06-12 01:01] LABS: BASOPHILS % (AUTO) 0.2 % (0.0-3.0); EOSINOPHILS # (AUTO) 0.2 K/ul (0.0-0.7); EOSINOPHILS % (AUTO) 1.8 % (0.0-7.0); HEMATOCRIT 27.4 % (42.0-52.0); HEMOGLOBIN 8.4 g/dl (14.0-18.0); IMMATURE GRANULOCYTE % (AUTO) 0.4 % (0.0-5.0); LYMPHOCYTES % (AUTO) 24.7 (10.0-50.0); MEAN CORPUSCULAR HEMOGLOBIN 28.4 pg (27.0-31.0); MEAN CORPUSCULAR HGB CONC 30.7 (31.8-35.4); MEAN CORPUSCULAR VOLUME 92.6 fl (80.0-94.0); MONOCYTES # (AUTO) 0.8 K/uL (0.4-2.0); MONOCYTES % (AUTO) 9.6 (0-10); NEUTROPHILS # (AUTO) 5.2 K/ul (2.0-6.9); NEUTROPHILS % (AUTO) 63.3 % (42.2-75.2); PLATELET COUNT 173 10^3/uL (140-440); RED BLOOD COUNT 2.96 10^6/ul (4.70-6.10); WHITE BLOOD COUNT 8.26 K/ul (4.2-10.2)
[2024-06-12 01:09] LABS: ALANINE AMINOTRANSFERASE 13.1 U/L (0-50); ALBUMIN 2.95 g/dL (3.5-5.0); ALKALINE PHOSPHATASE 73.1 U/L (56-119); ASPARTATE AMINO TRANSFERASE 28.1 U/L (17-59); BILIRUBIN,TOTAL 0.66 mg/dL (0.2-1.3); CALCIUM 7.95 mg/dL (8.4-10.2); CARBON DIOXIDE 29.5 mmol/L (22-30.0); CREATINE KINASE 43.9 U/L (55-170); CREATININE 1.25 mg/dL (0.60-1.10); GLUCOSE 172.7 mg/dL (74-106); POTASSIUM 3.65 mmol/L (3.5-5.1); SODIUM 136.7 mmol/L (134.5-145); TOTAL PROTEIN 6.13 g/dL (6.3-8.2)
[2024-06-12 01:14] LABS: ABG O2 HGB 88.5 % (95-100); ABG PH 7.45 (7.35-7.45); BEecf 5.9 (-2.0-3.0); COHb 4.3 (0.5-1.5); HCO3 29.9 (21-28); MetHb 0.3 (0-1.5); TCO2 31.2 (19-24); sO2 91.8 % (94-98)
[2024-06-12 01:21] LABS: TROPONIN I 0.03 ng/ml (0.0000-0.120)
--- NOTE | 2024-06-12 01:24 | DI ---
EXAM: SINGLE VIEW OF THE CHEST. History: Short of breath Comparison: Chest radiograph 01/31/2024 FINDINGS: Heart is mildly enlarged. No consolidation. No pleural fluid and no pneumothorax. No ac sharon osseous abnormalities. Atherosclerotic vascular calcifications. Impression: Mild cardiomegaly without acute disease in the chest
[2024-06-12 01:36] LABS: BORDETELLA PARAPERTUSSIS (PCR) NOT DETECTED (NOT DETECT); BORDETELLA PERTUSSIS (PCR) NOT DETECTED (NOT DETECT); CHLAMYDIA PNEUMONIAE (PCR) NOT DETECTED (NOT DETECT); CORONAVIRUS 229E (PCR) NOT DETECTED (NOT DETECT); CORONAVIRUS HKU1 (PCR) NOT DETECTED (NOT DETECT); CORONAVIRUS NL63 (PCR) NOT DETECTED (NOT DETECT); CORONAVIRUS OC43 (PCR) NOT DETECTED (NOT DETECT); HUMAN METAPNEUMOVIRUS (PCR) NOT DETECTED (NOT DETECT); HUMAN RHINOVIRUS/ENTEROV (PCR) NOT DETECTED (NOT DETECT); INFLUENZA B (PCR) NOT DETECTED (NOT DETECT); MYCOPLASMA PNEUMONIAE (PCR) NOT DETECTED (NOT DETECT); PARAINFLUENZA VIRUS 1 (PCR) NOT DETECTED (NOT DETECT); PARAINFLUENZA VIRUS 2 (PCR) NOT DETECTED (NOT DETECT); PARAINFLUENZA VIRUS 3 (PCR) NOT DETECTED (NOT DETECT); PARAINFLUENZA VIRUS 4 (PCR) NOT DETECTED (NOT DETECT); RESPIRATORY SYNCYTIAL V (PCR) NOT DETECTED (NOT DETECT); SARS_COV_2 (PCR) NOT DETECTED (NOT DETECT)
[2024-06-12] MEDS: LASIX IVP ONE (02:00)
[2024-06-12 02:21] LABS: ADENOVIRUS (PCR) NOT DETECTED (NOT DETECT)
[2024-06-12] MEDS: ROCEPHIN 1 GM/50 ML D5W 1 GM/50 ML BAG IV SCH (03:59)
[2024-06-12 04:01] VITALS: BMI 20.9
[2024-06-12] MEDS: DUONEB NEB SCH (05:20)
[2024-06-12 06:01] LABS: BASOPHILS % (AUTO) 0.2 % (0.0-3.0); HEMATOCRIT 26.5 % (42.0-52.0); HEMOGLOBIN 8.3 g/dl (14.0-18.0); IMMATURE GRANULOCYTE % (AUTO) 0.3 % (0.0-5.0); LYMPHOCYTES # (AUTO) 0.7 K/uL (0.60-3.4); LYMPHOCYTES % (AUTO) 11.9 (10.0-50.0); MEAN CORPUSCULAR HEMOGLOBIN 28.9 pg (27.0-31.0); MEAN CORPUSCULAR HGB CONC 31.3 (31.8-35.4); MEAN CORPUSCULAR VOLUME 92.3 fl (80.0-94.0); MONOCYTES # (AUTO) 0.1 K/uL (0.4-2.0); MONOCYTES % (AUTO) 1.7 (0-10); NEUTROPHILS # (AUTO) 4.9 K/ul (2.0-6.9); NEUTROPHILS % (AUTO) 85.9 % (42.2-75.2); PLATELET COUNT 172 10^3/uL (140-440); RDW COEFFICIENT OF VARIATION 22.7 % (11.6-14.8); RED BLOOD COUNT 2.87 10^6/ul (4.70-6.10); WHITE BLOOD COUNT 5.72 K/ul (4.2-10.2)
[2024-06-12 06:19] LABS: BLOOD UREA NITROGEN 24.4 mg/dL (9-20); CALCIUM 8.2 mg/dL (8.4-10.2); CARBON DIOXIDE 31.8 mmol/L (22-30.0); CHLORIDE 100.6 mmol/L (98-107); CREATININE 1.29 mg/dL (0.60-1.10); GLUCOSE 213.4 mg/dL (74-106); POTASSIUM 3.65 mmol/L (3.5-5.1); SODIUM 138.9 mmol/L (134.5-145)
[2024-06-12 07:42] LABS: CREATINE KINASE 36.2 U/L (55-170)
[2024-06-12 07:55] LABS: TROPONIN I 0.019 ng/ml (0.0000-0.120)
[2024-06-12] MEDS ORDERED: ULTRAM PO PRN (08:20)
[2024-06-12] MEDS: LOPRESSOR PO SCH (08:45)
[2024-06-12] MEDS: SOLU-MEDROL 125 MG IVP SCH (08:46)
[2024-06-12] MEDS: CLARITIN PO SCH (08:47)
[2024-06-12] MEDS: IMDUR PO SCH (08:47)
[2024-06-12] MEDS: ASPIRIN EC PO SCH (08:47)
[2024-06-12] MEDS: NORVASC PO SCH (08:47)
[2024-06-12] MEDS: FLORASTOR PO SCH (08:47)
[2024-06-12] MEDS: ZYLOPRIM PO SCH (08:47)
[2024-06-12] MEDS: MAG-OX PO SCH (08:47)
[2024-06-12] MEDS: NAMENDA PO SCH (08:47)
[2024-06-12] MEDS: ELIQUIS PO SCH (08:48)
[2024-06-12] MEDS: SYNTHROID PO SCH (08:48)
--- NOTE | 2024-06-12 13:26 | PCM ---
Date of Service Date Seen by Provider: 06/12/24 Time Seen by Provider: 09:10 Admit Day/Time Admission Date: 06/12/24 Admission Time: 01:35 Reason for Admission Chief Complaint: SOB Hospital Provider Hospital Provider: GLEN GRIDER PA-C, [facility] [place] Primary Care Physician Primary Care Physician: JAZZMINE MACIEL History of Present Illness History of Present Illness: Patient is an 84 year old male with pmhx of gout, hypertension, CAD s/p stenting, a fib, hyperlipidemia, HfpEF, hypothyroidism, dementia, who presents from home for cc of worsening sob. Patient lives with his son. States his symptoms just started yesterday and he had a cough. Denies chest pain. He was placed on 1-2L in the ER. CXR shows cardiomegaly. BNP elevated >15500. He He was given lasix, solumedrol, breathing treatment, and rocephin. Patient states he's feeling much better today. Case Discussed With Case Discussed With: Patient's case was discussed with the ER Physicians, Dr. Tarango. [facility] Medical History History of aortic stenosis Z86.79 - Personal history of other diseases of the circulatory system (ICD- 10) Bilateral carotid artery disease I77.9 - Disorder of arteries and arterioles, unspecified (ICD-10) Depression F32.A - Depression, unspecified (ICD-10) Anxiety F41.9 - Anxiety disorder, unspecified (ICD-10) COPD (chronic obstructive pulmonary disease) J44.9 - Chronic obstructive pulmonary disease, unspecified (ICD-10) Hyperlipidemia E78.5 - Hyperlipidemia, unspecified (ICD-10) Anemia D64.9 - Anemia, unspecified (ICD-10) Hypothyroidism E03.9 - Hypothyroidism, unspecified (ICD-10) Diabetes E11.9 - Type 2 diabetes mellitus without complications (ICD-10) Myocardial infarct March 2023 I21.9 - Acute myocardial infarction, unspecified (ICD-10) Hypertension I10 - Essential (primary) hypertension (ICD-10) Surgical History History of coronary artery stent placement Z95.5 - Presence of coronary angioplasty implant and graft (ICD-10) Status post spinal disc removal Z98.890 - Other specified postprocedural states (ICD-10) 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 - Acquired absence of other parts of urinary tract (ICD-10) Family History FATHER CAD (coronary artery disease) Mother CAD (coronary artery disease) Social History Smoking and tobacco status: Current every day smoker Tobacco type: cigarettes Smoking packs per day: 1 Smoking cigarettes per day: 20.0 Tobacco: How many years used: 70 Quit status: considering quitting Alcohol intake: former Details: Quit 8 years ago Substance use type: does not use Special elio needs: No Agree to transfusion: Yes Adopted: No Caregiver/support person: Yes Foster care: No Household members: children Housing: house Marital status: W / Lives independently: Yes Daycare: no daycare Number of children: 1 Financial difficulty paying for basics: not very hard service: Yes prison: No Current occupational status: retired History of recent travel: No Do you think of yourself as: straight/heterosexual Current gender identity: male Seatbelt use: always Helmet use: Yes Drives intoxicated or rides with intoxicated rolloff driver: No Allergies Allergies Allergy/AdvReac Type Severity Reaction Status Date / Time No Known Allergies Allergy Verified 06/12/24 00:27 Current Medications Home Medications allopurinol 100 mg tablet 100 mg PO DAILY 06/25/23 [History Confirmed 06/12/24 Last Taken 06/11/24] amlodipine 10 mg tablet 5 mg PO DAILY 06/25/23 [History Confirmed 06/12/24 Last Taken 06/11/24] aspirin 81 mg tablet,delayed release (Lor Low Dose Aspirin) 81 mg PO DAILY 06/25/23 [History Confirmed 06/12/24 Last Taken 06/11/24] atorvastatin 80 mg tablet 40 mg PO BEDTIME 06/25/23 [History Confirmed 06/12/24 Last Taken 06/11/24 19:00] isosorbide mononitrate 30 mg tablet,extended release 24 hr 30 mg PO DAILY 06/25/23 [History Confirmed 06/12/24 Last Taken 06/11/24] levothyroxine 112 mcg tablet (Euthyrox) 112 mcg PO DAILY 06/25/23 [History Confirmed 06/12/24 Last Taken 06/11/24] loratadine 10 mg tablet (Allerclear) 10 mg PO DAILY 06/25/23 [History Confirmed 06/12/24 Last Taken 06/11/24] magnesium oxide 400 mg PO DAILY 06/25/23 [History Confirmed 06/12/24 Last Taken 06/11/24] nitroglycerin 0.4 mg sublingual tablet 0.4 mg sublingual Q5-15M PRN chest pain 06/25/23 [History Confirmed 06/12/24 Last Taken Unknown] omega 7-voa-wka-fish oil 300 mg-1,000 mg capsule (Fish Oil) 1 cap PO DAILY 06/25/23 [History Confirmed 06/12/24 Last Taken 06/11/24] furosemide 20 mg tablet 20 mg PO DAILY 08/27/23 [History Confirmed 06/12/24 Last Taken 06/11/24] Saccharomyces boulardii 250 mg capsule (Florastor) 250 mg PO BID #20 caps 10/11/23 [Rx Confirmed 06/12/24 Last Taken 06/11/24 19:00] ondansetron 4 mg disintegrating tablet 4 mg PO Q6H PRN nausea and vomiting #30 tabs 10/11/23 [Rx Confirmed 06/12/24 Last Taken Unknown] tramadol 50 mg tablet 50 mg PO Q8H PRN pain #14 tabs 04/30/24 [Rx Confirmed 06/12/24 Last Taken 06/11/24] apixaban 5 mg tablet (Eliquis) 5 mg PO BID #60 tabs 05/06/24 [Rx Confirmed 06/12/24 Last Taken 06/11/24 19:00] metoprolol tartrate 25 mg tablet 12.5 mg (1/2 x 25 mg) PO BID #30 tabs 05/06/24 [Rx Confirmed 06/12/24 Last Taken 06/11/24 19:00] memantine 10 mg tablet 10 mg PO 2XD 06/12/24 [History Confirmed 06/12/24 Last Taken 06/11/24 19:00] mirtazapine 15 mg tablet 15 mg PO BEDTIME 06/12/24 [History Confirmed 06/12/24 Last Taken 06/11/24 19:00] quetiapine 25 mg tablet 25 mg PO BEDTIME 06/12/24 [History Confirmed 06/12/24 Last Taken 06/11/24 19:00] Home Albuterol/Ipratropium (Ipratropium/Albuterol Vial.Neb) 3 ml NEB RTQ6H PENDING SALE TO [facility] Last Admin: 06/12/24 11:20 Dose: 3 ml Allopurinol (Allopurinol 100 Mg Tablet) 100 mg PO DAILY PENDING SALE TO [facility] Last Admin: 06/12/24 08:47 Dose: 100 mg Amlodipine Besylate (Amlodipine Besylate 5 Mg Tablet) 5 mg PO DAILY PENDING SALE TO [facility] Last Admin: 06/12/24 08:47 Dose: 5 mg Apixaban (Apixaban 5 Mg Tab) 5 mg PO BID PENDING SALE TO [facility] Last Admin: 06/12/24 08:48 Dose: 5 mg Aspirin (Aspirin 81 Mg Tablet.Dr) 81 mg PO DAILYWM2 PENDING SALE TO [facility] Last Admin: 06/12/24 08:47 Dose: 81 mg Atorvastatin Calcium (Atorvastatin Calcium 20 Mg Tablet) 40 mg PO BEDTIME BERYL Furosemide (Furosemide 20 Mg Tablet) 20 mg PO DAILY PENDING SALE TO [facility] CEFTRIAXONE/D5W 1 GM PREMIX (Rocephin 1 Gm/50 Ml D5w) 1 gm in 50 mls @ 100 mls/hr IV BEDTIME PENDING SALE TO [facility] Stop: 06/15/24 03:29 Last Admin: 06/12/24 03:59 Dose: 100 mls/hr Isosorbide Mononitrate (Isosorbide Mononitrate 30 Mg Tab.Er.24h) 30 mg PO DAILY PENDING SALE TO [facility] Last Admin: 06/12/24 08:47 Dose: 30 mg Levothyroxine Sodium (Levothyroxine Sodium 112 Mcg Tablet) 112 mcg PO QDAC2 PENDING SALE TO [facility] Last Admin: 06/12/24 08:48 Dose: 112 mcg Loratadine (Loratadine 10 Mg Tablet) 10 mg PO DAILY PENDING SALE TO [facility] Last Admin: 06/12/24 08:47 Dose: 10 mg Magnesium Oxide (Magnesium Oxide 400 Mg Tablet) 400 mg PO DAILY PENDING SALE TO [facility] Last Admin: 06/12/24 08:47 Dose: 400 mg Memantine (Memantine Hcl 10 Mg Tablet) 10 mg PO 2XD PENDING SALE TO [facility] Last Admin: 06/12/24 08:47 Dose: 10 mg Methylprednisolone Sodium Succinate (Methylprednisolone Sod Succ/Pf 125 Mg/2 Ml Vial) 60 mg IVP Q8H PENDING SALE TO [facility] Last Admin: 06/12/24 08:46 Dose: 60 mg Metoprolol Tartrate (Metoprolol Tartrate 25 Mg Tablet) 12.5 mg PO BID PENDING SALE TO [facility] Last Admin: 06/12/24 08:45 Dose: 12.5 mg Mirtazapine (Mirtazapine 15 Mg Tablet) 15 mg PO BEDTIME PENDING SALE TO [facility] Quetiapine Fumarate (Quetiapine Fumarate 25 Mg Tablet) 25 mg PO BEDTIME PENDING SALE TO [facility] Saccharomyces Boulardii (Saccharomyces Boulardii 250 Mg Capsule) 250 mg PO BID PENDING SALE TO [facility] Last Admin: 06/12/24 08:47 Dose: 250 mg Sodium Chloride (0.9% Sodium Chloride 10 Ml Disp.Syrin) 1 syr IVF PRN PRN PRN Reason: To flush IV Tramadol HCl (Tramadol Hcl 50 Mg Tablet) 50 mg PO Q8H PRN PRN Reason: Pain Discontinued Medications Albuterol/Ipratropium (Ipratropium/Albuterol Vial.Neb) 3 ml NEB ONCE STA Stop: 06/12/24 00:42 Last Admin: 06/12/24 00:55 Dose: 3 ml Furosemide (Furosemide Inj 40 Mg/4 Ml Vial) 40 mg IVP ONCE ONE Stop: 06/12/24 01:30 Last Admin: 06/12/24 02:00 Dose: 40 mg Methylprednisolone Sodium Succinate (Methylprednisolone Sod Succ/Pf 125 Mg/2 Ml Vial) 125 mg IVP ONCE ONE Stop: 06/12/24 00:42 Last Admin: 06/12/24 00:56 Dose: 125 mg Opioid Naive vs. Tolerant Does Patient Take Opioids?: No Is Patient Opioid Naive?: Yes What is Opioid Naive?: *Opioid Naive implies the patient is not already taking opioids or not chronically receiving opioids on a daily basis. *PRN dosing is not "usually" associated with tolerance. *Patients are at higher risk of over-sedation and aspiration. Is Patient Opioid Tolerant?: No What is Opioid Tolerant?: *Opioid Tolerance implies less than the expected response to an opioid. *Acquired tolerance is defined by the patient taking 60mg of oral morphine daily (or equianalgesic dose of another opioid) for 1 week or more. *Often associated with chronic pain. *May take more than usual dose to achieve desired pain control. Review of Systems Constitutional: Reports Fatigue; Denies Fever Head: Reports Normocephalic and Atraumatic Cardiovascular: Denies Chest pain, Chest Pressure or Edema Respiratory: Reports Cough and Shortness of air Gastrointestinal: Denies Nausea, Vomiting, Diarrhea or Abdominal pain Genitourinary: Denies Dysuria or Hematuria Dermatologic: Denies Rashes Neurological: Reports Weakness Physical examination Most Recent Vital Signs: Most Recent Vital Signs Temperature 98.1 F 06/12/24 05:00 Temperature Source Temporal Artery Scan 06/12/24 05:00 Temperature Source Oral 06/12/24 00:09 Pulse Rate 99 06/12/24 05:00 Respiratory Rate 20 06/12/24 05:00 Blood Pressure 136/72 06/12/24 05:00 Blood Pressure Mean 93 06/12/24 05:00 Blood Pressure Left Arm 163/90 06/12/24 03:01 Blood Pressure Location Left Arm 06/12/24 05:00 Blood Pressure Position Supine 06/12/24 05:00 O2 Sat by Pulse Oximetry 96 06/12/24 05:00 Oxygen Delivery Method Nasal Cannula 06/12/24 12:00 Oxygen Flow Rate 1 06/12/24 05:00 Height 6 ft 1 in 06/12/24 03:01 Weight 72 kg 06/12/24 03:01 Telemetry Type Remote Telemetry 06/12/24 07:00 Telemetry Monitoring Continues 06/12/24 07:00 Irregular Telemetry Rate (Approximate) 100-110 BPM 06/12/24 03:31 Telemetry Heart Rate 115 H 06/12/24 07:00 Telemetry SPO2 94 06/12/24 03:31 EKG QRS Interval 0.05 L 06/12/24 07:00 Telemetry Strip Reading Afib with RVR 06/12/24 07:00 Appearance: Positive No Apparent Distress and Alert and Oriented x3 (but has difficulty recalling details of his pmhx ) Skin: Positive [place], Warm and Good Turgor HEENT: Positive Normocephalic and Atraumatic Neck: Positive Supple and Midline Trachea Chest/Lungs: Positive Symmetrical With Equal Breath Sounds and Rhonci (nikolas, lower lobes) Heart: Positive RRR GI/: Positive Soft, Nontender, Bowel Sounds Normal and No Distention Neurological: Positive Cranial Nerves Intact, Alert, Oriented and Other (+generalized weakness ) Labs This Visit Labs This Visit: Labs This Visit 06/12/24 06/12/24 06/12/24 00:35 00:40 00:41 WBC 8.26 RBC 2.96 L Hgb 8.4 L Hct 27.4 L MCV 92.6 MCH 28.4 MCHC 30.7 L RDW Coeff of Sri 23.0 H Plt Count 173 Immature Gran % (Auto) 0.4 Neut % (Auto) 63.3 Lymph % (Auto) 24.7 Hudson % (Auto) 9.6 Eos % (Auto) 1.8 Baso % (Auto) 0.2 Neut # (Auto) 5.2 Lymph # (Auto) 2.0 [place] # (Auto) 0.8 Eos # (Auto) 0.2 Baso # (Auto) 0.0 Immature Gran # (Auto) 0.0 Puncture Site Rr Base Excess 4.7 H O2 Saturation 92.8 L ABG pH 7.42 ABG pCO2 45.0 ABG pO2 65.0 L ABG HCO3 29.2 H ABG Total CO2 30.6 H Ralph Test Pos Hemoglobin 0.4 Oxyhemoglobin 88.1 L Carboxyhemoglobin 4.4 H Total Hemoglobin 9.9 L O2 Delivery Device Cannula Oxygen Liter Flow 2.00 Sodium 136.7 Potassium 3.65 Chloride 101.0 Carbon Dioxide 29.5 Anion Gap 9.85 BUN 25.0 H Creatinine 1.25 H Estimated GFR (MDRD) 55.00 BUN/Creatinine Ratio 20.00 Glucose 172.7 H Lactic Acid 1.17 Calcium 7.95 L Total Bilirubin 0.66 AST 28.1 ALT 13.1 Alkaline Phosphatase 73.1 Total Creatine Kinase 43.9 L Troponin I 0.030 NT-Pro-B Natriuret Pep 32732 H Total Protein 6.13 L Albumin 2.95 L Globulin 3.18 Albumin/Globulin Ratio 0.92 Procalcitonin < 0.05 Adenovirus (PCR) B. pertussis DNA (PCR) B.parapertussis DNA PCR C. pneumoniae DNA (PCR) Coronavirus OC43 (PCR) Coronavirus HKU1 (PCR) Coronavirus 229E (PCR) Coronavirus NL63 (PCR) Human Metapneumovir PCR Influenza Type A (PCR) Influenza B (RT-PCR) M. pneumoniae (PCR) Parainfluenza 1 (PCR) Parainfluenza 2 (PCR) Parainfluenza 3 (PCR) Parainfluenza 4 (PCR) RSV (PCR) Entero/Rhino (PCR) SARS-CoV-2 (PCR) 06/12/24 06/12/24 06/12/24 01:05 01:26 05:53 WBC 5.72 RBC 2.87 L Hgb 8.3 L Hct 26.5 L MCV 92.3 MCH 28.9 MCHC 31.3 L RDW Coeff of Sri 22.7 H Plt Count 172 Immature Gran % (Auto) 0.3 Neut % (Auto) 85.9 H Lymph % (Auto) 11.9 Hudson % (Auto) 1.7 Eos % (Auto) 0.0 Baso % (Auto) 0.2 Neut # (Auto) 4.9 Lymph # (Auto) 0.7 Hudson # (Auto) 0.1 L Eos # (Auto) 0.0 Baso # (Auto) 0.0 Immature Gran # (Auto) 0.0 Puncture Site Rr Base Excess 5.9 H O2 Saturation 91.8 L ABG pH 7.45 ABG pCO2 43.0 ABG pO2 60.0 L ABG HCO3 29.9 H ABG Total CO2 31.2 H Ralph Test Pos Hemoglobin 0.3 Oxyhemoglobin 88.5 L Carboxyhemoglobin 4.3 H Total Hemoglobin 8.0 L O2 Delivery Device Ra Oxygen Liter Flow Sodium 138.9 Potassium 3.65 Chloride 100.6 Carbon Dioxide 31.8 H Anion Gap 10.15 BUN 24.4 H Creatinine 1.29 H Estimated GFR (MDRD) 53.00 BUN/Creatinine Ratio 18.91 Glucose 213.4 H Lactic Acid Calcium 8.20 L Total Bilirubin AST ALT Alkaline Phosphatase Total Creatine Kinase Troponin I NT-Pro-B Natriuret Pep Total Protein Albumin Globulin Albumin/Globulin Ratio Procalcitonin Adenovirus (PCR) Not detected B. pertussis DNA (PCR) Not detected B.parapertussis DNA PCR Not detected C. pneumoniae DNA (PCR) Not detected Coronavirus OC43 (PCR) Not detected Coronavirus HKU1 (PCR) Not detected Coronavirus 229E (PCR) Not detected Coronavirus NL63 (PCR) Not detected Human Metapneumovir PCR Not detected Influenza Type A (PCR) Not detected Influenza B (RT-PCR) Not detected M. pneumoniae (PCR) Not detected Parainfluenza 1 (PCR) Not detected Parainfluenza 2 (PCR) Not detected Parainfluenza 3 (PCR) Not detected Parainfluenza 4 (PCR) Not detected RSV (PCR) Not detected Entero/Rhino (PCR) Not detected SARS-CoV-2 (PCR) Not detected 06/12/24 07:29 WBC RBC Hgb Hct MCV MCH MCHC RDW Coeff of Sri Plt Count Immature Gran % (Auto) Neut % (Auto) Lymph % (Auto) [place] % (Auto) Eos % (Auto) Baso % (Auto) Neut # (Auto) Lymph # (Auto) Hudson # (Auto) Eos # (Auto) Baso # (Auto) Immature Gran # (Auto) Puncture Site Base Excess O2 Saturation ABG pH ABG pCO2 ABG pO2 ABG HCO3 ABG Total CO2 Ralph Test Hemoglobin Oxyhemoglobin Carboxyhemoglobin Total Hemoglobin O2 Delivery Device Oxygen Liter Flow Sodium Potassium Chloride Carbon Dioxide Anion Gap BUN Creatinine Estimated GFR (MDRD) BUN/Creatinine Ratio Glucose Lactic Acid Calcium Total Bilirubin AST ALT Alkaline Phosphatase Total Creatine Kinase 36.2 L Troponin I 0.019 NT-Pro-B Natriuret Pep Total Protein Albumin Globulin Albumin/Globulin Ratio Procalcitonin Adenovirus (PCR) B. pertussis DNA (PCR) B.parapertussis DNA PCR C. pneumoniae DNA (PCR) Coronavirus OC43 (PCR) Coronavirus HKU1 (PCR) Coronavirus 229E (PCR) Coronavirus NL63 (PCR) Human Metapneumovir PCR Influenza Type A (PCR) Influenza B (RT-PCR) M. pneumoniae (PCR) Parainfluenza 1 (PCR) Parainfluenza 2 (PCR) Parainfluenza 3 (PCR) Parainfluenza 4 (PCR) RSV (PCR) Entero/Rhino (PCR) SARS-CoV-2 (PCR) Imaging Imaging: EXAM: SINGLE VIEW OF THE CHEST. History: Short of breath Comparison: Chest radiograph 01/31/2024 FINDINGS: Heart is mildly enlarged. No consolidation. No pleural fluid and no pneumothorax. No acute osseous abnormalities. Atherosclerotic vascular calcifications. Impression: Mild cardiomegaly without acute disease in the chest Review Statement Review Statement: I have independently reviewed and interpreted the labs/EKGs/imaging that were ordered by the ER provider. I have reviewed all outside records that are available currently in our EMR including imaging/notes/labs from previous visits. Plan Plan: 1. Acute COPD exacerbation - Cont rocephin, solumedrol, duonebs, wean O2 when able. 2. Acute hypoxic respiratory failure - Plan as above 3. CAD - Pt following Dr. Ashby at [facility]. Had stent placed on , was on brillinta 90 bid and asa. This is no longer on his med list. Per Dr. Lisa's note, he was expected to be on this at least 12 months. It doesn't appear he has followed up with Dr. Ashby since his stent placement, likely would benefit from cards f/u. 4. HFpEF - recent echo done with preserved EF. Pt appears euvolemic. Cont home lasix. 5. Anemia, chronic - cont to monitor 6. Hypertension - Cont home meds 7. Hyperlipidemia - Cont home meds 8. Gout - Cont home meds 9. Hypothyroidism - Continue home meds 10. GERD - Cont home meds 11. BPH - Flomax no longer on his med list 12. Hx of a fib - Cont home meds including eliquis 13. Recently suicidal - Was hospitalized at [facility]. Pt denies SI at this time. DVT Prophylaxis: Eliquis Time Spent: Greater than 80 minutes spent with patient, 50% of the time spent with this patient was devoted to counseling and coordination of care. [facility] minutes spent discussing advance care planning. Admit to: Obs Discussed Plan of Care with Dr. Jayc Bay. Medications Medication Orders: Medications Ordered Category Date Time Status 0.9 % Sodium Chloride [Saline Flush] Meds 06/12/24 00:41 Active 1 syr IVF PRN PRN Allopurinol [Zyloprim] Meds 06/12/24 09:00 Active 100 mg PO DAILY Amlodipine Besylate [Norvasc] Meds 06/12/24 09:00 Active 5 mg PO DAILY Apixaban [Eliquis] Meds 06/12/24 09:00 Active 5 mg PO BID Aspirin [Aspirin EC] Meds 06/12/24 09:00 Active 81 mg PO DAILYWM2 Atorvastatin Calcium [Lipitor] Meds 06/12/24 21:00 Active 40 mg PO BEDTIME Ceftriaxone/D5w 1 gm Premix [Rocephin 1 gm/50 ml D5w] Meds 06/12/24 03:30 Active 1 gm in 50 ml IV BEDTIME Furosemide [Lasix] Meds 06/13/24 06:00 Active 40 mg IVP QDAC2 Ipratropium/Albuterol Neb [Duoneb] Meds 06/12/24 06:00 Active 3 ml NEB RTQ6H Isosorbide Mononitrate [Imdur] Meds 06/12/24 09:00 Active 30 mg PO DAILY Levothyroxine Sodium [Synthroid] Meds 06/12/24 09:00 Active 112 mcg PO QDAC2 Loratadine [Claritin] Meds 06/12/24 09:00 Active 10 mg PO DAILY Magnesium Oxide [Mag-Ox] Meds 06/12/24 09:00 Active 400 mg PO DAILY Memantine HCl [Namenda] Meds 06/12/24 09:00 Active 10 mg PO 2XD Methylprednisolone Sod Succ/Pf [Solu-Medrol 125 mg] Meds 06/12/24 09:00 Active 60 mg IVP Q8H Metoprolol Tartrate [Lopressor] Meds 06/12/24 09:00 Active 12.5 mg PO BID Mirtazapine [Remeron] Meds 06/12/24 21:00 Active 15 mg PO BEDTIME Quetiapine Fumarate [Seroquel] Meds 06/12/24 21:00 Active 25 mg PO BEDTIME Saccharomyces Boulardii [Florastor] Meds 06/12/24 09:00 Active 250 mg PO BID Tramadol HCl [Ultram] Meds 06/12/24 08:20 Active 50 mg PO Q8H PRN
[2024-06-12 15:53] LABS: CREATINE KINASE 30.2 U/L (55-170)
[2024-06-12 16:36] LABS: TROPONIN I < 0.012 ng/ml (0.0000-0.120)
[2024-06-12] MEDS: DUONEB NEB ONE (18:01)
[2024-06-12] MEDS: LIPITOR PO SCH (20:09)
[2024-06-12] MEDS: SEROQUEL PO SCH (20:09)
[2024-06-12] MEDS: REMERON PO SCH (20:09)
[2024-06-13 05:40] LABS: HEMATOCRIT 23.3 % (42.0-52.0); HEMOGLOBIN 7.2 g/dl (14.0-18.0); IMMATURE GRANULOCYTE % (AUTO) 0.3 % (0.0-5.0); LYMPHOCYTES # (AUTO) 0.9 K/uL (0.60-3.4); LYMPHOCYTES % (AUTO) 9.3 (10.0-50.0); MEAN CORPUSCULAR HEMOGLOBIN 29.1 pg (27.0-31.0); MEAN CORPUSCULAR HGB CONC 30.9 (31.8-35.4); MEAN CORPUSCULAR VOLUME 94.3 fl (80.0-94.0); MONOCYTES # (AUTO) 0.3 K/uL (0.4-2.0); NEUTROPHILS # (AUTO) 8.7 K/ul (2.0-6.9); NEUTROPHILS % (AUTO) 87.4 % (42.2-75.2); PLATELET COUNT 168 10^3/uL (140-440); RDW COEFFICIENT OF VARIATION 22.9 % (11.6-14.8); RED BLOOD COUNT 2.47 10^6/ul (4.70-6.10); WHITE BLOOD COUNT 9.92 K/ul (4.2-10.2)
[2024-06-13 05:54] LABS: BLOOD UREA NITROGEN 39.1 mg/dL (9-20); CALCIUM 7.76 mg/dL (8.4-10.2); CHLORIDE 101.3 mmol/L (98-107); CREATININE 1.32 mg/dL (0.60-1.10); GLUCOSE 182.9 mg/dL (74-106); POTASSIUM 4.13 mmol/L (3.5-5.1); SODIUM 138.5 mmol/L (134.5-145)
[2024-06-13] MEDS ORDERED: LASIX IVP SCH (06:00)
[2024-06-13] MEDS: LASIX TAB PO SCH (08:29)
[2024-06-13] MEDS: ROBITUSSIN AC PO PRN (09:22)
[2024-06-13 09:23] LABS: IRON 37.9 ug/dL (49-181)
[2024-06-13] MEDS: NICODERM 21 MG TD SCH (11:36)
--- NOTE | 2024-06-13 15:00 | PCM.PROG ---
Date/Time Seen Date Seen by Provider: 06/13/24 Time Seen by Provider: 08:30 Provider [facility] Chief Complaint Chief Complaint: SOB Subjective Subjective: Shortness of breath and tachycardia present today. Hemoglobin dropped from 8.3 to 7.2. Patient reports dark tarry stools at home at times. Is on blood thinner. Reports he does not wish to undergo colonoscopy if needed. Objective Appearance: Positive No Apparent Distress and Alert and Oriented x3 Chest/Lungs: Positive Symmetrical With Equal Breath Sounds and Clear to Auscultation Bilaterally Heart: Positive RRR and Pulses Normal GI/: Positive Soft, Nontender, Bowel Sounds Normal and No Distention Musculoskeletal: Positive Not Examined Neurological: Positive Sensation Intact, Motor intact, Alert and Oriented Vital Signs Vital Signs: Vital Signs: Last 24 Hours 06/12/24 16:00 06/12/24 16:46 06/12/24 16:59 Temperature Temperature Source Pulse Rate Respiratory Rate Blood Pressure Blood Pressure Mean Blood Pressure Location Blood Pressure Position O2 Sat by Pulse Oximetry 94 L Oxygen Delivery Method Nasal Cannula Nasal Cannula Nasal Cannula Oxygen Flow Rate 0.5 Telemetry Type Telemetry Monitoring Irregular Telemetry Rate (Approximate) Telemetry Heart Rate Telemetry SPO2 EKG QRS Interval Telemetry Strip Reading 06/12/24 17:57 06/12/24 19:00 06/12/24 19:00 Temperature Temperature Source Pulse Rate Respiratory Rate Blood Pressure Blood Pressure Mean Blood Pressure Location Blood Pressure Position O2 Sat by Pulse Oximetry Oxygen Delivery Method Nasal Cannula Nasal Cannula Oxygen Flow Rate Telemetry Type Remote Telemetry Telemetry Monitoring Continues Irregular Telemetry Rate (Approximate) 100-110 BPM Telemetry Heart Rate Telemetry SPO2 EKG QRS Interval 0.06 Telemetry Strip Reading A fib 06/12/24 19:41 06/12/24 19:56 06/12/24 21:00 Temperature Temperature Source Pulse Rate Respiratory Rate Blood Pressure Blood Pressure Mean Blood Pressure Location Blood Pressure Position O2 Sat by Pulse Oximetry 95 Oxygen Delivery Method Nasal Cannula Nasal Cannula Nasal Cannula Oxygen Flow Rate 1 Telemetry Type Telemetry Monitoring Irregular Telemetry Rate (Approximate) Telemetry Heart Rate Telemetry SPO2 EKG QRS Interval Telemetry Strip Reading 06/12/24 21:09 06/12/24 22:00 06/12/24 23:00 Temperature 98.9 F Temperature Source Temporal Artery Scan Pulse Rate 89 Respiratory Rate 17 Blood Pressure 126/63 Blood Pressure Mean 84 Blood Pressure Location Left Arm Blood Pressure Position Supine O2 Sat by Pulse Oximetry 98 Oxygen Delivery Method Nasal Cannula Nasal Cannula Nasal Cannula Oxygen Flow Rate 1 Telemetry Type Telemetry Monitoring Irregular Telemetry Rate (Approximate) Telemetry Heart Rate Telemetry SPO2 EKG QRS Interval Telemetry Strip Reading 06/13/24 00:00 06/13/24 01:00 06/13/24 01:00 Temperature Temperature Source Pulse Rate Respiratory Rate Blood Pressure Blood Pressure Mean Blood Pressure Location Blood Pressure Position O2 Sat by Pulse Oximetry Oxygen Delivery Method Nasal Cannula Nasal Cannula Oxygen Flow Rate Telemetry Type Remote Telemetry Telemetry Monitoring Continues Irregular Telemetry Rate (Approximate) 90-100 BPM Telemetry Heart Rate Telemetry SPO2 EKG QRS Interval 0.06 Telemetry Strip Reading A fib 06/13/24 02:00 06/13/24 03:00 06/13/24 04:00 Temperature Temperature Source Pulse Rate Respiratory Rate Blood Pressure Blood Pressure Mean Blood Pressure Location Blood Pressure Position O2 Sat by Pulse Oximetry Oxygen Delivery Method Nasal Cannula Nasal Cannula Nasal Cannula Oxygen Flow Rate Telemetry Type Telemetry Monitoring Irregular Telemetry Rate (Approximate) Telemetry Heart Rate Telemetry SPO2 EKG QRS Interval Telemetry Strip Reading 06/13/24 04:00 06/13/24 05:00 06/13/24 05:08 Temperature 97.7 F Temperature Source Temporal Artery Scan Pulse Rate 89 Respiratory Rate 18 Blood Pressure 124/63 Blood Pressure Mean 83 Blood Pressure Location Left Arm Blood Pressure Position Supine O2 Sat by Pulse Oximetry 94 L Oxygen Delivery Method Nasal Cannula Room Air Room Air Oxygen Flow Rate 2 Telemetry Type Telemetry Monitoring Irregular Telemetry Rate (Approximate) Telemetry Heart Rate Telemetry SPO2 EKG QRS Interval Telemetry Strip Reading 06/13/24 05:28 06/13/24 05:30 06/13/24 06:00 Temperature Temperature Source Pulse Rate Respiratory Rate Blood Pressure Blood Pressure Mean Blood Pressure Location Blood Pressure Position O2 Sat by Pulse Oximetry Oxygen Delivery Method Nasal Cannula Nasal Cannula Oxygen Flow Rate 1 1 Telemetry Type Telemetry Monitoring Irregular Telemetry Rate (Approximate) Telemetry Heart Rate Telemetry SPO2 EKG QRS Interval Telemetry Strip Reading 06/13/24 07:00 06/13/24 07:00 06/13/24 08:00 Temperature Temperature Source Pulse Rate Respiratory Rate Blood Pressure Blood Pressure Mean Blood Pressure Location Blood Pressure Position O2 Sat by Pulse Oximetry Oxygen Delivery Method Nasal Cannula Nasal Cannula Oxygen Flow Rate Telemetry Type Remote Telemetry Telemetry Monitoring Continues Irregular Telemetry Rate (Approximate) Telemetry Heart Rate 113 H Telemetry SPO2 96 EKG QRS Interval 0.05 L Telemetry Strip Reading AFIB WITH RVR 06/13/24 08:00 06/13/24 09:00 06/13/24 09:53 Temperature 97.5 F L Temperature Source Tympanic Pulse Rate 104 H Respiratory Rate 18 Blood Pressure 115/70 Blood Pressure Mean 85 Blood Pressure Location Right Arm Blood Pressure Position Sitting O2 Sat by Pulse Oximetry 94 L Oxygen Delivery Method Nasal Cannula Nasal Cannula Nasal Cannula Oxygen Flow Rate 1 Telemetry Type Telemetry Monitoring Irregular Telemetry Rate (Approximate) Telemetry Heart Rate Telemetry SPO2 EKG QRS Interval Telemetry Strip Reading 06/13/24 09:57 06/13/24 10:00 06/13/24 13:00 Temperature Temperature Source Pulse Rate Respiratory Rate Blood Pressure Blood Pressure Mean Blood Pressure Location Blood Pressure Position O2 Sat by Pulse Oximetry 97 Oxygen Delivery Method Nasal Cannula Nasal Cannula Oxygen Flow Rate 1 Telemetry Type Remote Telemetry Telemetry Monitoring Continues Irregular Telemetry Rate (Approximate) Telemetry Heart Rate 103 H Telemetry SPO2 94 EKG QRS Interval 0.04 L Telemetry Strip Reading A fib with RVR 06/13/24 13:03 06/13/24 14:00 Temperature 97.6 F Temperature Source Tympanic Pulse Rate 103 H Respiratory Rate 18 Blood Pressure 109/70 Blood Pressure Mean 83 Blood Pressure Location Left Arm Blood Pressure Position Sitting O2 Sat by Pulse Oximetry 96 Oxygen Delivery Method Nasal Cannula Nasal Cannula Oxygen Flow Rate 1 1 Telemetry Type Telemetry Monitoring Irregular Telemetry Rate (Approximate) Telemetry Heart Rate Telemetry SPO2 EKG QRS Interval Telemetry Strip Reading Lab Results Lab Results: Lab Results: Last 24 Hours 06/13/24 06/13/24 06/12/24 09:54 05:06 15:40 WBC 9.92 RBC 2.47 L Hgb 7.2 L Hct 23.3 L MCV 94.3 H MCH 29.1 MCHC 30.9 L RDW Coeff of Sri 22.9 H Plt Count 168 Immature Gran % (Auto) 0.3 Neut % (Auto) 87.4 H Lymph % (Auto) 9.3 L [place] % (Auto) 3.0 Eos % (Auto) 0.0 Baso % (Auto) 0.0 Neut # (Auto) 8.7 H Lymph # (Auto) 0.9 [place] # (Auto) 0.3 L Eos # (Auto) 0.0 Baso # (Auto) 0.0 Immature Gran # (Auto) 0.0 Sodium 138.5 Potassium 4.13 Chloride 101.3 Carbon Dioxide 32.0 H Anion Gap 9.33 BUN 39.1 H Creatinine 1.32 H Estimated GFR (MDRD) 52.00 BUN/Creatinine Ratio 29.62 Glucose 182.9 H Calcium 7.76 L Iron 37.9 L TIBC 159 L % Saturation 24 Ferritin 639.00 H Total Creatine Kinase 30.2 L Troponin I < 0.012 Blood Type A POSITIVE A POSITIVE Antibody Screen Negative Additional Comments Additional Comments: I have independently reviewed and interpreted the labs/EKGs/imaging ordered during this hospital stay. I have reviewed outside records that are available in our EMR that pertain to medical stay including imaging/notes/labs from previous visits. Active Medications Active Medications: Medications Generic Name Dose Route Start Last Admin Trade Name Freq PRN Reason Stop Dose Admin Albuterol/Ipratropium 3 ml 06/12/24 06:00 06/13/24 11:24 Ipratropium/Albuterol Vial.Neb NEB 3 ml RTQ6H BERYL Administration Allopurinol 100 mg 06/12/24 09:00 06/13/24 08:30 Allopurinol 100 Mg Tablet PO 100 mg DAILY BERYL Administration Amlodipine Besylate 5 mg 06/12/24 09:00 06/13/24 08:30 Amlodipine Besylate 5 Mg Tablet PO 5 mg DAILY BERYL Administration Apixaban 5 mg 06/12/24 09:00 06/13/24 08:30 Apixaban 5 Mg Tab PO 5 mg BID BERYL Administration Aspirin 81 mg 06/12/24 09:00 06/13/24 08:27 Aspirin 81 Mg Tablet. PO 81 mg DAILYWM2 BERYL Administration Atorvastatin Calcium 40 mg 06/12/24 21:00 06/12/24 20:09 Atorvastatin Calcium 20 Mg Tablet PO 40 mg BEDTIME BERYL Administration Furosemide 20 mg 06/13/24 09:00 06/13/24 08:29 Furosemide 20 Mg Tablet PO 20 mg DAILY BERYL Administration CEFTRIAXONE/D5W 1 GM PREMIX 1 gm in 50 mls @ 100 mls/hr 06/12/24 03:30 06/12/24 20:11 Rocephin 1 Gm/50 Ml D5w IV 10/09/24 03:29 100 mls/hr BEDTIME BERYL Administration Isosorbide Mononitrate 30 mg 06/12/24 09:00 06/13/24 08:30 Isosorbide Mononitrate 30 Mg Tab.Er.24h PO 30 mg DAILY BERYL Administration Levothyroxine Sodium 112 mcg 06/12/24 09:00 06/13/24 05:13 Levothyroxine Sodium 112 Mcg Tablet PO 112 mcg QDAC2 BERYL Administration Loratadine 10 mg 06/12/24 09:00 06/13/24 08:28 Loratadine 10 Mg Tablet PO 10 mg DAILY BERYL Administration Magnesium Oxide 400 mg 06/12/24 09:00 06/13/24 08:30 Magnesium Oxide 400 Mg Tablet PO 400 mg DAILY BERYL Administration Memantine 10 mg 06/12/24 09:00 06/13/24 08:30 Memantine Hcl 10 Mg Tablet PO 10 mg 2XD BERYL Administration Methylprednisolone Sodium Succinate 60 mg 06/12/24 09:00 06/13/24 08:26 Methylprednisolone Sod Succ/Pf 125 Mg/2 Ml Vial IVP 60 mg Q8H BERYL Administration Metoprolol Tartrate 12.5 mg 06/12/24 09:00 06/13/24 08:29 Metoprolol Tartrate 25 Mg Tablet PO 12.5 mg BID BERYL Administration Mirtazapine 15 mg 06/12/24 21:00 06/12/24 20:09 Mirtazapine 15 Mg Tablet PO 15 mg BEDTIME BERYL Administration Nicotine 1 patch 06/13/24 11:00 06/13/24 11:36 Nicotine 21 Mg Patch.Td24 TD 1 patch DAILY BERYL Administration Quetiapine Fumarate 25 mg 06/12/24 21:00 06/12/24 20:09 Quetiapine Fumarate 25 Mg Tablet PO 25 mg BEDTIME BERYL Administration Saccharomyces Boulardii 250 mg 06/12/24 09:00 06/13/24 08:30 Saccharomyces Boulardii 250 Mg Capsule PO 250 mg BID BERYL Administration Sodium Chloride 1 syr 06/12/24 00:41 06/13/24 14:54 0.9% Sodium Chloride 10 Ml Disp.Syrin IVF 1 syr PRN PRN Administration To flush IV Tramadol HCl 50 mg 06/12/24 08:20 Tramadol Hcl 50 Mg Tablet PO Q8H PRN Pain Plan Plan: 1. Acute COPD exacerbation - Improving, Cont rocephin, solumedrol, duonebs, wean O2 when able. 2. Acute hypoxic respiratory failure - Plan as above 3. CAD - Pt following Dr. Ashby at [facility]. Had stent placed on , was on brillinta 90 bid and asa. This is no longer on his med list. Per Dr. Lisa's no te, he was expected to be on this at least 12 months. It doesn't appear he has followed up with Dr. Ashby since his stent placement, likely would benefit from cards f/u. 4. HFpEF - recent echo done with preserved EF. Pt appears euvolemic. Cont home lasix. 5. Anemia, chronic - worsened, hemoglobin 7.2 today, likely contributing to shortness of breath and tachycardia, give 1 unit prbc and reassess, unsure if patient is taking brillinta and eliquis both - attempting contact with pharmacy/PCP 6. Hypertension - Cont home meds 7. Hyperlipidemia - Cont home meds 8. Gout - Cont home meds 9. Hypothyroidism - Continue home meds 10. GERD - Cont home meds 11. BPH - Flomax no longer on his med list 12. Hx of a fib - Cont home meds including eliquis 13. Recently suicidal - Was hospitalized at [facility]. Pt denies SI at this time. DVT Prophylaxis: Ambulation Review Statement Review Statement: I have personally discussed and reviewed the patient's visit/currently labs/imaging/decision making with Dr. Bay, my supervising attending. Greater that 50 minutes spent with patient, 50% of the time spent with this patient was devoted to counseling and coordination of care.
[2024-06-14 05:40] LABS: BASOPHILS % (AUTO) 0.1 % (0.0-3.0); HEMATOCRIT 25.6 % (42.0-52.0); HEMOGLOBIN 8.2 g/dl (14.0-18.0); IMMATURE GRANULOCYTE # (AUTO) 0.1 (0.0-1.0); IMMATURE GRANULOCYTE % (AUTO) 0.7 % (0.0-5.0); LYMPHOCYTES # (AUTO) 0.7 K/uL (0.60-3.4); LYMPHOCYTES % (AUTO) 6.1 (10.0-50.0); MEAN CORPUSCULAR HEMOGLOBIN 29.3 pg (27.0-31.0); MEAN CORPUSCULAR VOLUME 91.4 fl (80.0-94.0); MONOCYTES # (AUTO) 0.3 K/uL (0.4-2.0); MONOCYTES % (AUTO) 2.9 (0-10); NEUTROPHILS # (AUTO) 10.4 K/ul (2.0-6.9); NEUTROPHILS % (AUTO) 90.2 % (42.2-75.2); PLATELET COUNT 177 10^3/uL (140-440); RDW COEFFICIENT OF VARIATION 21.5 % (11.6-14.8); WHITE BLOOD COUNT 11.49 K/ul (4.2-10.2)
[2024-06-14 06:01] LABS: ALANINE AMINOTRANSFERASE 12.9 U/L (0-50); ALBUMIN 2.81 g/dL (3.5-5.0); ALKALINE PHOSPHATASE 66.1 U/L (56-119); ASPARTATE AMINO TRANSFERASE 35.6 U/L (17-59); BILIRUBIN,TOTAL 0.42 mg/dL (0.2-1.3); BLOOD UREA NITROGEN 43.2 mg/dL (9-20); CALCIUM 7.93 mg/dL (8.4-10.2); CARBON DIOXIDE 31.7 mmol/L (22-30.0); CREATININE 1.37 mg/dL (0.60-1.10); GLUCOSE 152.6 mg/dL (74-106); POTASSIUM 4.12 mmol/L (3.5-5.1); SODIUM 138.1 mmol/L (134.5-145); TOTAL PROTEIN 5.74 g/dL (6.3-8.2)
[2024-06-14] MEDS: LOPRESSOR PO SCH (08:49)
[2024-06-14] MEDS: LASIX TAB PO SCH (08:57)
[2024-06-14 09:33] LABS: OCCULT BLOOD SAMPLE 1 POSITIVE (NEGATIVE)
[2024-06-14 09:34] LABS: OCCULT BLOOD SAMPLE 2 NO SPECIMEN RECEIVED (NEGATIVE); OCCULT BLOOD SAMPLE 3 NO SPECIMEN RECEIVED (NEGATIVE)
--- NOTE | 2024-06-14 13:58 | PCM.PROG ---
Date/Time Seen Date Seen by Provider: 06/14/24 Time Seen by Provider: 08:30 Provider Provider: [facility] Chief Complaint Chief Complaint: SOB Subjective Subjective: SOB much better today. Weakness improving. Reports feeling heart is pounding. Objective Appearance: Positive No Apparent Distress, Alert and Oriented x3, Thin and Cachectic Chest/Lungs: Positive Symmetrical With Equal Breath Sounds, Clear to Auscultation Bilaterally and Good Air Movement all 4 Lung [place] Heart: Positive Pulses Normal, Irregular Rhythm and Tachycardia GI/: Positive Soft, Nontender, Bowel Sounds Normal and No Distention Musculoskeletal: Positive Not Examined Neurological: Positive Sensation Intact, Motor intact, Alert and Oriented Vital Signs Vital Signs: Vital Signs: Last 24 Hours 06/13/24 14:00 06/13/24 14:00 06/13/24 19:00 Temperature 97.7 F Temperature Source Temporal Artery Scan Pulse Rate 83 Respiratory Rate 19 Blood Pressure 140/79 Blood Pressure Mean 99 Blood Pressure Location Left Arm Blood Pressure Position O2 Sat by Pulse Oximetry 94 L Oxygen Delivery Method Nasal Cannula Room Air Oxygen Flow Rate 1 Telemetry Type Remote Telemetry Telemetry Monitoring Continues Irregular Telemetry Rate (Approximate) 90-100 BPM Telemetry Heart Rate Telemetry SPO2 98 EKG QRS Interval 0.04 L Telemetry Strip Reading A-FIB WITH PVC' S 06/13/24 20:00 06/13/24 21:01 06/13/24 22:18 Temperature 97.9 F 97.7 F Temperature Source Temporal Artery Scan Pulse Rate 93 99 Respiratory Rate 18 20 Blood Pressure 129/80 146/74 H Blood Pressure Mean 96 98 Blood Pressure Location Left Arm Blood Pressure Position Sitting O2 Sat by Pulse Oximetry 98 96 Oxygen Delivery Method Nasal Cannula Room Air Oxygen Flow Rate 1 Telemetry Type Telemetry Monitoring Irregular Telemetry Rate (Approximate) Telemetry Heart Rate Telemetry SPO2 EKG QRS Interval Telemetry Strip Reading 06/13/24 22:28 06/13/24 22:43 06/13/24 23:43 Temperature 97.5 F L 97.6 F 97.5 F L Temperature Source Pulse Rate 94 97 90 Respiratory Rate 20 20 18 Blood Pressure 145/70 H 134/74 148/80 H Blood Pressure Mean 95 94 102 Blood Pressure Location Blood Pressure Position O2 Sat by Pulse Oximetry Oxygen Delivery Method Oxygen Flow Rate Telemetry Type Telemetry Monitoring Irregular Telemetry Rate (Approximate) Telemetry Heart Rate Telemetry SPO2 EKG QRS Interval Telemetry Strip Reading 06/14/24 00:43 06/14/24 01:00 06/14/24 01:35 Temperature 97.5 F L 97.4 F L Temperature Source Pulse Rate 93 98 Respiratory Rate 16 16 Blood Pressure 109/72 115/79 Blood Pressure Mean 84 91 Blood Pressure Location Blood Pressure Position O2 Sat by Pulse Oximetry Oxygen Delivery Method Oxygen Flow Rate Telemetry Type Remote Telemetry Telemetry Monitoring Continues Irregular Telemetry Rate (Approximate) 100-110 BPM Telemetry Heart Rate Telemetry SPO2 EKG QRS Interval 0.05 L Telemetry Strip Reading A-FIB WITH PVC' S 06/14/24 05:25 06/14/24 05:52 06/14/24 07:00 Temperature 97.5 F L Temperature Source Temporal Artery Scan Pulse Rate 104 H Respiratory Rate 20 Blood Pressure 166/85 H Blood Pressure Mean 112 Blood Pressure Location Left Arm Blood Pressure Position Supine O2 Sat by Pulse Oximetry 96 Oxygen Delivery Method Nasal Cannula Nasal Cannula Oxygen Flow Rate 1 1 Telemetry Type Remote Telemetry Telemetry Monitoring Continues Irregular Telemetry Rate (Approximate) Telemetry Heart Rate 114 H Telemetry SPO2 94 EKG QRS Interval 0.04 L Telemetry Strip Reading Afib with RVR 06/14/24 10:00 06/14/24 12:38 Temperature Temperature Source Pulse Rate Respiratory Rate Blood Pressure Blood Pressure Mean Blood Pressure Location Blood Pressure Position O2 Sat by Pulse Oximetry 95 Oxygen Delivery Method Nasal Cannula Oxygen Flow Rate 0.5 Telemetry Type Remote Telemetry Telemetry Monitoring Continues Irregular Telemetry Rate (Approximate) Telemetry Heart Rate 108 H Telemetry SPO2 94 EKG QRS Interval 0.04 L Telemetry Strip Reading Afib with RVR Lab Results Lab Results: Lab Results: Last 24 Hours 06/14/24 06/14/24 06/13/24 09:23 05:34 09:54 WBC 11.49 H RBC 2.80 L Hgb 8.2 L Hct 25.6 L MCV 91.4 MCH 29.3 MCHC 32.0 RDW Coeff of Sri 21.5 H Plt Count 177 Immature Gran % (Auto) 0.7 Neut % (Auto) 90.2 H Lymph % (Auto) 6.1 L [place] % (Auto) 2.9 Eos % (Auto) 0.0 Baso % (Auto) 0.1 Neut # (Auto) 10.4 H Lymph # (Auto) 0.7 [place] # (Auto) 0.3 L Eos # (Auto) 0.0 Baso # (Auto) 0.0 Immature Gran # (Auto) 0.1 Sodium 138.1 Potassium 4.12 Chloride 100.0 Carbon Dioxide 31.7 H Anion Gap 10.52 BUN 43.2 H Creatinine 1.37 H Estimated GFR (MDRD) 50.00 BUN/Creatinine Ratio 31.53 Glucose 152.6 H Calcium 7.93 L Total Bilirubin 0.42 AST 35.6 ALT 12.9 Alkaline Phosphatase 66.1 Total Protein 5.74 L Albumin 2.81 L Globulin 2.93 Albumin/Globulin Ratio 0.95 Stl Occult Blood (IFOB) Positive Stool Occult Blood #2 No specimen received Stool Occult Blood #3 No specimen received Blood Type A POSITIVE Antibody Screen Negative Crossmatch (AHG) See Detail Additional Comments Additional Comments: I have independently reviewed and interpreted the labs/EKGs/imaging ordered during this hospital stay. I have reviewed outside records that are available in our EMR that pertain to medical stay including imaging/notes/labs from previous visits. Active Medications Active Medications: Medications Generic Name Dose Route Start Last Admin Trade Name Freq PRN Reason Stop Dose Admin Albuterol/Ipratropium 3 ml 06/12/24 06:00 06/14/24 11:01 Ipratropium/Albuterol Vial.Neb NEB 3 ml RTQ6H BERYL Administration Allopurinol 100 mg 06/12/24 09:00 06/14/24 08:49 Allopurinol 100 Mg Tablet PO 100 mg DAILY BERYL Administration Amlodipine Besylate 5 mg 06/12/24 09:00 06/14/24 08:49 Amlodipine Besylate 5 Mg Tablet PO 5 mg DAILY BERYL Administration Apixaban 5 mg 06/12/24 09:00 06/13/24 08:30 Apixaban 5 Mg Tab PO 5 mg BID BERYL Administration Aspirin 81 mg 06/12/24 09:00 06/14/24 08:49 Aspirin 81 Mg Tablet. PO 81 mg DAILYWM2 BERYL Administration Atorvastatin Calcium 40 mg 06/12/24 21:00 06/13/24 20:32 Atorvastatin Calcium 20 Mg Tablet PO 40 mg BEDTIME BERYL Administration Furosemide 20 mg 06/14/24 09:00 06/14/24 08:57 Furosemide 20 Mg Tablet PO 20 mg QDAC2 BERYL Administration CEFTRIAXONE/D5W 1 GM PREMIX 1 gm in 50 mls @ 100 mls/hr 06/12/24 03:30 06/13/24 20:34 Rocephin 1 Gm/50 Ml D5w IV 06/15/24 03:29 100 mls/hr BEDTIME BERYL Administration Isosorbide Mononitrate 30 mg 06/12/24 09:00 06/14/24 08:49 Isosorbide Mononitrate 30 Mg Tab.Er.24h PO 30 mg DAILY BERYL Administration Levothyroxine Sodium 112 mcg 06/12/24 09:00 06/14/24 05:18 Levothyroxine Sodium 112 Mcg Tablet PO 112 mcg QDAC2 BERYL Administration Loratadine 10 mg 06/12/24 09:00 06/14/24 08:49 Loratadine 10 Mg Tablet PO 10 mg DAILY BERYL Administration Magnesium Oxide 400 mg 06/12/24 09:00 06/14/24 08:49 Magnesium Oxide 400 Mg Tablet PO 400 mg DAILY BERYL Administration Memantine 10 mg 06/12/24 09:00 06/14/24 08:49 Memantine Hcl 10 Mg Tablet PO 10 mg 2XD BERYL Administration Methylprednisolone Sodium Succinate 60 mg 06/12/24 09:00 06/14/24 08:48 Methylprednisolone Sod Succ/Pf 125 Mg/2 Ml Vial IVP 60 mg Q8H BERYL Administration Metoprolol Tartrate 25 mg 06/14/24 09:00 06/14/24 08:49 Metoprolol Tartrate 25 Mg Tablet PO 25 mg BID BERYL Administration Mirtazapine 15 mg 06/12/24 21:00 06/13/24 20:34 Mirtazapine 15 Mg Tablet PO 15 mg BEDTIME BERYL Administration Nicotine 1 patch 06/13/24 11:00 06/14/24 08:48 Nicotine 21 Mg Patch.Td24 TD 1 patch DAILY BERYL Administration Quetiapine Fumarate 25 mg 06/12/24 21:00 06/13/24 20:34 Quetiapine Fumarate 25 Mg Tablet PO 25 mg BEDTIME BERYL Administration Saccharomyces Boulardii 250 mg 06/12/24 09:00 06/14/24 08:49 Saccharomyces Boulardii 250 Mg Capsule PO 250 mg BID BERYL Administration Sodium Chloride 1 syr 06/12/24 00:41 06/13/24 14:54 0.9% Sodium Chloride 10 Ml Disp.Syrin IVF 1 syr PRN PRN Administration To flush IV Sodium Chloride 1 syr 06/13/24 21:00 06/14/24 05:20 0.9% Sodium Chloride 10 Ml Disp.Syrin IVF 1 syr Q8HR BERYL Administration Tramadol HCl 50 mg 06/12/24 08:20 Tramadol Hcl 50 Mg Tablet PO Q8H PRN Pain Plan Plan: 1. Acute COPD exacerbation - Improving, Cont rocephin, solumedrol, duonebs, wean O2 when able. 2. Acute hypoxic respiratory failure - Resolved, on RA today, 3 step oximetry negative 3. CAD - Pt following Dr. Ashby at [facility]. Had stent placed on , was on brillinta 90 bid and asa. This is no longer on his med list. Per Dr. Lisa's note, he was expected to be on this at least 12 months. It doesn't appear he has followed up with Dr. Ashby since his stent placement - case management scheduled for next week. 4. HFpEF - recent echo done with preserved EF. Pt appears euvolemic. Cont home lasix. 5. Anemia, chronic - Improved, received 1 unit PRBC yesterday, occult stool positive, likely due to taking anticoagulation incorrectly, stopping eliquis, resume brillinta 6. Hypertension - Cont home meds 7. Hyperlipidemia - Cont home meds 8. Gout - Cont home meds 9. Hypothyroidism - Continue home meds 10. GERD - Cont home meds 11. BPH - Flomax no longer on his med list 12. Hx of a fib - in RVR today, increased metoprolol dose to 25 mg today with minimal response, additional 12.5 ordered 13. Recently suicidal - Was hospitalized at [facility]. Pt denies SI at this time. Dispo: planned to d/c today, Afib RVR remaining, adjusting medications and hope to d/c tomorrow Review Statement Review Statement: I have personally discussed and reviewed the patient's visit/currently labs/imaging/decision making with Dr. Bay, my supervising attending. Greater that 50 minutes spent with patient, 50% of the time spent with this patient was devoted to counseling and coordination of care.
[2024-06-14] MEDS: LOPRESSOR PO ONE (14:24)
[2024-06-14] MEDS: XANAX PO ONE (21:36)
[2024-06-15 06:00] VITALS: BP 160/86; PULSE 71; RESP 21; TEMP 98.6
[2024-06-15 06:17] LABS: HEMATOCRIT 29.2 % (42.0-52.0); HEMOGLOBIN 9.2 g/dl (14.0-18.0); IMMATURE GRANULOCYTE % (AUTO) 0.4 % (0.0-5.0); LYMPHOCYTES # (AUTO) 0.6 K/uL (0.60-3.4); LYMPHOCYTES % (AUTO) 6.8 (10.0-50.0); MEAN CORPUSCULAR HEMOGLOBIN 29.3 pg (27.0-31.0); MEAN CORPUSCULAR HGB CONC 31.5 (31.8-35.4); MONOCYTES # (AUTO) 0.4 K/uL (0.4-2.0); MONOCYTES % (AUTO) 4.4 (0-10); NEUTROPHILS # (AUTO) 8.1 K/ul (2.0-6.9); NEUTROPHILS % (AUTO) 88.4 % (42.2-75.2); PLATELET COUNT 217 10^3/uL (140-440); RDW COEFFICIENT OF VARIATION 22.1 % (11.6-14.8); RED BLOOD COUNT 3.14 10^6/ul (4.70-6.10); WHITE BLOOD COUNT 9.11 K/ul (4.2-10.2)
[2024-06-15 06:30] LABS: ALANINE AMINOTRANSFERASE 22.1 U/L (0-50); ALBUMIN 2.98 g/dL (3.5-5.0); ALKALINE PHOSPHATASE 74.1 U/L (56-119); ASPARTATE AMINO TRANSFERASE 39.1 U/L (17-59); BILIRUBIN,TOTAL 0.5 mg/dL (0.2-1.3); BLOOD UREA NITROGEN 49.7 mg/dL (9-20); CALCIUM 8.11 mg/dL (8.4-10.2); CARBON DIOXIDE 31.7 mmol/L (22-30.0); CHLORIDE 99.6 mmol/L (98-107); CREATININE 1.2 mg/dL (0.60-1.10); GLUCOSE 171.1 mg/dL (74-106); POTASSIUM 4.22 mmol/L (3.5-5.1); SODIUM 139.1 mmol/L (134.5-145); TOTAL PROTEIN 6.24 g/dL (6.3-8.2)
[2024-06-15 06:55] LABS: ANISOCYTOSIS 2+ (NOT PRESENT); HYPOCHROMASIA 1+ (NOT PRESENT); OVALOCYTES 1+ (NOT PRESENT); POIKILOCYTOSIS 1+ (NOT PRESENT); POLYCHROMASIA 1+ (NOT PRESENT)
[2024-06-15 06:56] LABS: MICROCYTOSIS 1+ (NOT PRESENT)
[2024-06-15] MEDS: TOPROL XL PO SCH (09:01)
--- NOTE | 2024-06-15 09:56 | DCSUM ---
Admission Date Admission Date: 06/12/24 Discharge Date Discharge Date: 06/15/24 Admission Diagnosis Admission Diagnosis: 1. Acute COPD exacerbation 2. Acute hypoxic respiratory failure 3. CAD 4. HFpEF 5. Anemia, chronic 6. Hypertension 7. Hyperlipidemia 8. Gout 9. Hypothyroidism 10. GERD 11. BPH 12. Hx of a fib Discharge Diagnosis Discharge Diagnosis: 1. Acute COPD exacerbation - Resolved 2. Acute hypoxic respiratory failure - Resolved 3. CAD - Chronic, follows with Dr. Jones 4. HFpEF - Chronic, stable 5. Anemia, chronic - Improved 6. Hypertension - Chronic, stable 7. Hyperlipidemia - Chronic, stable 8. Gout - Chronic, stable 9. Hypothyroidism - Chronic, stable 10. GERD - Chronic, stable 11. BPH - Flomax no longer on his med list 12. Hx of a fib - increased metoprolol 13. Recently suicidal - Resolved Hospital Provider Hospital Provider: MENDY NOEL, [facility] Primary Care Physician Primary Care Physician: JAZZMINE MACIEL Summary of History and Physical Summary of History and Physical: Patient is an 84 year old male with pmhx of gout, hypertension, CAD s/p stenting, a fib, hyperlipidemia, HfpEF, hypothyroidism, dementia, who presents from home for cc of worsening sob. Patient lives with his son. States his symptoms just started yesterday and he had a cough. Denies chest pain. He was placed on 1-2L in the ER. CXR shows cardiomegaly. BNP elevated >56238. He He was given lasix, solumedrol, breathing treatment, and rocephin. Patient states he's feeling much better today. Hospital Course Subjective: During stay, patient was initially treated for copd exacerbation with rocephin, solumedrol, and duonebs. He was weaned off oxygen. Patient continued to report shortness of breath after being weaned off oxygen. Hemoglobin was down to 7.3 with positive occult stool. Refused GI intervention but wanted blood transfusion. 1 unit of PRBC given and shortness of breath improved. It was discovered that patient has been taking anticoagulation incorrectly and has likely been taking eliquis and brillinta. Stopped eliquis. Restarted brillinta and discussed Dr. Jones with cardiology will be the provider to discontinue that. Has not followed up with Dr. Jones since his stenting in September of this year. He is now scheduled an appointment for tomorrow. Patient then continued to be afib RVR up into 120s at times. Increased metoprolol dose to 50 mg bid and heart rate has been below 100. He also voiced episodes of anxiety and heart rate would be elevated then as well. Received xanax which also provided relief. No further changes to home medications unless otherwise noted. Follow-up with Dr. Jones and Dr. Bay. Rx:metoprolol, brillinta, albuterol inhaler, xanax Appearance: Pleasant, No Apparent Distress and Alert HEENT: MMM, Supple and No JVD CVS: No Murmur Abdomen: Soft, Non-Tender and No Distention Respiratory: No Dyspnea Extremities: No Edema Vital Signs: Most Recent Vital Signs Temperature 98.6 F 06/15/24 05:59 Temperature Source Temporal Artery Scan 06/15/24 05:59 Temperature Source Oral 06/12/24 00:09 Pulse Rate 71 06/15/24 05:59 Respiratory Rate 21 H 06/15/24 05:59 Blood Pressure 160/86 H 06/15/24 05:59 Blood Pressure Mean 110 06/15/24 05:59 Blood Pressure Left Arm 163/90 06/12/24 03:01 Blood Pressure Location Left Arm 06/15/24 05:59 Blood Pressure Position Supine 06/15/24 05:59 O2 Sat by Pulse Oximetry 90 L 06/15/24 05:59 Oxygen Delivery Method Room Air 06/15/24 05:59 Oxygen Flow Rate 1 06/15/24 05:59 Height 6 ft 1 in 06/12/24 03:01 Weight 72 kg 06/12/24 03:01 Telemetry Type Remote Telemetry 06/15/24 07:00 Telemetry Monitoring Continues 06/15/24 07:00 Irregular Telemetry Rate (Approximate) 100-110 BPM 06/15/24 07:00 Telemetry Heart Rate 108 H 06/15/24 01:00 Telemetry SPO2 94 06/14/24 12:38 EKG QRS Interval 0.09 06/15/24 07:00 Telemetry Strip Reading afib w/ RVR/PVC 06/15/24 07:00 Imaging: EXAM: SINGLE VIEW OF THE CHEST. History: Short of breath Comparison: Chest radiograph 01/31/2024 FINDINGS: Heart is mildly enlarged. No consolidation. No pleural fluid and no pneumothorax. No acute osseous abnormalities. Atherosclerotic vascular calcifications. Impression: Mild cardiomegaly without acute disease in the chest Lab Results Last 24 Hours: 06/15/24 05:41 WBC 9.11 RBC 3.14 L Hgb 9.2 L Hct 29.2 L MCV 93.0 MCH 29.3 MCHC 31.5 L RDW Coeff of Sri 22.1 H Plt Count 217 Immature Gran % (Auto) 0.4 Neut % (Auto) 88.4 H Lymph % (Auto) 6.8 L Piatt % (Auto) 4.4 Eos % (Auto) 0.0 Baso % (Auto) 0.0 Neut # (Auto) 8.1 H Lymph # (Auto) 0.6 Piatt # (Auto) 0.4 Eos # (Auto) 0.0 Baso # (Auto) 0.0 Immature Gran # (Auto) 0.0 Polychromasia 1+ Hypochromasia 1+ Poikilocytosis 1+ Anisocytosis 2+ Microcytosis 1+ Ovalocytes 1+ Sodium 139.1 Potassium 4.22 Chloride 99.6 Carbon Dioxide 31.7 H Anion Gap 12.02 BUN 49.7 H Creatinine 1.20 H Estimated GFR (MDRD) 58.00 BUN/Creatinine Ratio 41.41 Glucose 171.1 H Calcium 8.11 L Total Bilirubin 0.50 AST 39.1 ALT 22.1 Alkaline Phosphatase 74.1 Total Protein 6.24 L Albumin 2.98 L Globulin 3.26 Albumin/Globulin Ratio 0.91 Discharge Instructions Discharge Planning: Discharge Planning > 40 minutes If patient is discharged with left ventricular systolic dysfunction: na Discharged with a beta perry? [] If no, why not? [] Discharged with an carlos/arb? [] If no, why not? [] Diagnosis: Anemia, COPD Diet: Regular Activity: as tolerated Follow-up with PCP in 2 weeks. Follow up with Cardiology Dr. Jones tomorrow. Medications: Metoprolol succinate 50 mg twice a day Brillinta 90 mg twice a day Albuterol inhaler 2 puffs every 4-6 hours as needed for shortness of breath Xanax 0.25 may take twice a day as needed for anxiety Stop taking eliquis. Discharge Medications: Medications at Discharge (Home Meds & RX) allopurinol 100 mg tablet 100 mg PO DAILY 06/25/23 amlodipine 10 mg tablet 5 mg PO DAILY 06/25/23 aspirin 81 mg tablet,delayed release (Lor Low Dose Aspirin) 81 mg PO DAILY 06/25/23 atorvastatin 80 mg tablet 40 mg PO BEDTIME 06/25/23 isosorbide mononitrate 30 mg tablet,extended release 24 hr 30 mg PO DAILY 06/25/23 levothyroxine 112 mcg tablet (Euthyrox) 112 mcg PO DAILY 06/25/23 loratadine 10 mg tablet (Allerclear) 10 mg PO DAILY 06/25/23 magnesium oxide 400 mg PO DAILY 06/25/23 nitroglycerin 0.4 mg sublingual tablet 0.4 mg sublingual Q5-15M PRN chest pain 06/25/23 omega 1-rvi-crd-fish oil 300 mg-1,000 mg capsule (Fish Oil) 1 cap PO DAILY 06/25/23 furosemide 20 mg tablet 20 mg PO DAILY 08/27/23 Saccharomyces boulardii 250 mg capsule (Florastor) 250 mg PO BID #20 caps 10/11/23 ondansetron 4 mg disintegrating tablet 4 mg PO Q6H PRN nausea and vomiting #30 tabs 10/11/23 tramadol 50 mg tablet 50 mg PO Q8H PRN pain #14 tabs 04/30/24 apixaban 5 mg tablet (Eliquis) 5 mg PO BID #60 tabs 05/06/24 metoprolol tartrate 25 mg tablet 12.5 mg (1/2 x 25 mg) PO BID #30 tabs 05/06/24 memantine 10 mg tablet 10 mg PO 2XD 06/12/24 mirtazapine 15 mg tablet 15 mg PO BEDTIME 06/12/24 quetiapine 25 mg tablet 25 mg PO BEDTIME 06/12/24 Discharge Plan Discharge Discharge Orders: Discharge Patient (ONCE); Ordered 06/15/24 Ordered By: PINEDA MACIEL Activity Restrictions/Additional Instructions: Diagnosis: Anemia, COPD Diet: Regular Activity: as tolerated Follow-up with PCP in 2 weeks. Follow up with Cardiology Dr. Jones tomorrow. Medications: Metoprolol succinate 50 mg twice a day Brillinta 90 mg twice a day Albuterol inhaler 2 puffs every 4-6 hours as needed for shortness of breath Xanax 0.25 may take twice a day as needed for anxiety Stop taking eliquis. Instructions: COPD (Chronic Obstructive Pulmonary Disease) (GEN), Anemia (GEN) Patient Disposition: HOME WITH FAMILY CARE Prescriptions: New metoprolol succinate 50 mg Tablet Extended Release 24 Hr 50 mg PO BID Qty: 60 0RF Brilinta 90 mg tablet 90 mg PO BID Qty: 60 0RF albuterol sulfate 90 mcg/actuation aerosol powdr breath activated 2 inh inhalation Q4-6H PRN (Reason: shortness of breath or wheezing) Qty: 1 0RF alprazolam [Xanax] 0.25 mg tablet 0.25 mg PO BID PRN (Reason: anxiety) Qty: 20 0RF Continued furosemide 20 mg tablet 20 mg PO DAILY tramadol 50 mg tablet 50 mg PO Q8H PRN (Reason: pain) Qty: 14 0RF omega 1-hzm-ipj-fish oil [Fish Oil] 300-1,000 mg capsule 1 cap PO DAILY aspirin [Lor Low Dose Aspirin] 81 mg tablet,delayed release (DR/EC) 81 mg PO DAILY levothyroxine [Euthyrox] 112 mcg tablet 112 mcg PO DAILY loratadine [Allerclear] 10 mg tablet 10 mg PO DAILY atorvastatin 80 mg tablet 40 mg PO BEDTIME allopurinol 100 mg tablet 100 mg PO DAILY amlodipine 10 mg tablet 5 mg PO DAILY isosorbide mononitrate 30 mg tablet extended release 24 hr 30 mg PO DAILY magnesium oxide 400 mg magnesium capsule 400 mg PO DAILY nitroglycerin 0.4 mg tablet, sublingual 0.4 mg sublingual Q5-15M PRN (Reason: chest pain) Rx Instructions: do not exceed 3 doses per episode Saccharomyces boulardii [Florastor] 250 mg Capsule 250 mg PO BID Qty: 20 0RF ondansetron 4 mg tablet,disintegrating 4 mg PO Q6H PRN (Reason: nausea and vomiting) Qty: 30 0RF quetiapine 25 mg tablet 25 mg PO BEDTIME mirtazapine 15 mg tablet 15 mg PO BEDTIME memantine 10 mg tablet 10 mg PO 2XD Discontinued metoprolol tartrate 25 mg Tablet 12.5 mg PO BID Qty: 30 0RF Eliquis 5 mg tablet 5 mg PO BID Qty: 60 0RF Did you review [place] [employer] for ALL controlled substances?: No Discussed opioids are addictive and Narcan is available by prescription or from pharmacy.: No Condition: Fair Referrals: JOLANTA JONES [REFERRING] - 06/16/24 1:30 pm (You will be seeing Barbara Leung APRN) JAZZMINE MACIEL [Primary Care Provider] - 06/28/24 2:30 pm
== END 2024-06-15 12:55 | disposition home or self-care (01) | DRG 190 ==
LOC: ED 00:07 → MEDSURG B 00:07
PROVIDERS: ADMIT Hospitalist; ATTEND Nurse Practitioner Family
DX: Z95.5 Presence of coronary angioplasty implant and graft; D64.9 Anemia, unspecified; F03.90 Unspecified dementia, unspecified severity, without behavioral disturbance, psychotic disturbance, mood disturbance, and anxiety; J44.1 Chronic obstructive pulmonary disease with (acute) exacerbation; E78.5 Hyperlipidemia, unspecified; R07.9 Chest pain, unspecified; J96.01 Acute respiratory failure with hypoxia; I11.0 Hypertensive heart disease with heart failure; I48.91 Unspecified atrial fibrillation; M10.9 Gout, unspecified; K21.9 Gastro-esophageal reflux disease without esophagitis; Z91.51 Personal history of suicidal behavior; E03.9 Hypothyroidism, unspecified; Z79.01 Long term (current) use of anticoagulants; R19.5 Other fecal abnormalities; I50.30 Unspecified diastolic (congestive) heart failure; N40.0 Benign prostatic hyperplasia without lower urinary tract symptoms; F17.210 Nicotine dependence, cigarettes, uncomplicated; I25.10 Atherosclerotic heart disease of native coronary artery without angina pectoris

== ENCOUNTER 2024-10-05 05:21 | Inpatient (IN) ==
--- NOTE | 2024-10-05 05:38 | ED.PDOC ---
General ED Provider: Dr. TUTU BARRERA MD Chief Complaint: Non-specific Complaint Stated Complaint: 84 yo WM brought in from [place] by EMS for complaints of both feet numb and R foot numbness migrates up to RLQ of abdomen. Minimal back pain. No N/V. Uses a cane to get around the shelter. No incontinence. No RIVERA or chest pain. Some cough and some SOB from his COPD. Hx of COPD, CHF with preserved ejection fx., Colitis, renal failure and tobacco abuse. Still smokes 1 PPD Review of his records showed he had a stent in early 2023 and atrial fibrillation. Had seen Dr. Ashby, cardiology. Time Seen by Provider: 10/05/24 05:23 Mode of Arrival: Ambulance Information Source: Patient and EMT Exam Limitations: No limitations Primary Care Provider: JAZZMINE MACIEL Referred to ED by: Other (self) Nursing and Triage Documentation Reviewed and Agree: Yes Does Patient Take Opioids?: No What is Opioid Naive?: *Opioid Naive implies the patient is not already taking opioids or not chronically receiving opioids on a daily basis. *PRN dosing is not "usually" associated with tolerance. *Patients are at higher risk of over-sedation and aspiration. What is Opioid Tolerant?: *Opioid Tolerance implies less than the expected response to an opioid. *Acquired tolerance is defined by the patient taking 60mg of oral morphine daily (or equianalgesic dose of another opioid) for 1 week or more. *Often associated with chronic pain. *May take more than usual dose to achieve desired pain control. Review of Systems Review Of Systems Constitutional: Reports No symptoms Eyes: Reports No symptoms Ears, Nose, Mouth, Throat: Reports No symptoms Respiratory: Reports Cough and Shortness of Breath (mild SOB from COPD) Cardiac: Denies Chest pain or Edema GI: Reports Abdominal pain; Denies Diarrhea or Vomiting Musculoskeletal: Reports Back pain (mild lower back pain.) Skin: Reports No symptoms Neurological: Denies Cognitive dysfunction or Headache [facility] Medical History History of aortic stenosis Z86.79 - Personal history of other diseases of the circulatory system (ICD- 10) Bilateral carotid artery disease I77.9 - Disorder of arteries and arterioles, unspecified (ICD-10) Depression F32.A - Depression, unspecified (ICD-10) Anxiety F41.9 - Anxiety disorder, unspecified (ICD-10) COPD (chronic obstructive pulmonary disease) J44.9 - Chronic obstructive pulmonary disease, unspecified (ICD-10) Hyperlipidemia E78.5 - Hyperlipidemia, unspecified (ICD-10) Anemia D64.9 - Anemia, unspecified (ICD-10) Hypothyroidism E03.9 - Hypothyroidism, unspecified (ICD-10) Diabetes E11.9 - Type 2 diabetes mellitus without complications (ICD-10) Myocardial infarct March 2023 I21.9 - Acute myocardial infarction, unspecified (ICD-10) Hypertension I10 - Essential (primary) hypertension (ICD-10) Family History FATHER CAD (coronary artery disease) Mother CAD (coronary artery disease) Social History Smoking and tobacco status: Current every day smoker Tobacco type: cigarettes Smoking packs per day: 1 Smoking cigarettes per day: 20.0 Tobacco: How many years used: 70 Quit status: considering quitting Alcohol intake: former Details: Quit 8 years ago Substance use type: does not use Special elio needs: No Agree to transfusion: Yes Adopted: No Caregiver/support person: Yes Foster care: No Household members: children Housing: house Marital status: W / Lives independently: Yes Daycare: no daycare Number of children: 1 Financial difficulty paying for basics: not very hard service: Yes correction: No Current occupational status: retired History of recent travel: No Do you think of yourself as: straight/heterosexual Current gender identity: male Seatbelt use: always Helmet use: Yes Drives intoxicated or rides with intoxicated [employer] driver: No Surgical History History of coronary artery stent placement Z95.5 - Presence of coronary angioplasty implant and graft (ICD-10) Status post spinal disc removal Z98.890 - Other specified postprocedural states (ICD-10) 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 - Acquired absence of other parts of urinary tract (ICD-10) Physical Exam Physical Exam Appearance: Reports No pain distress and Well-nourished Ill-appearing: None Pain Distress: Mild Eyes: Reports KINSEY, EOMI and Conjunctiva clear ENT: Reports Nose normal and Oropharynx normal Neck: Supple Respiratory: Reports Breath sounds equal, Breath sounds diminished and Respirations nonlabored; Denies Wheezes or Retractions Cardiovascular: Reports RRR, Pulses normal, No rub and No murmur GI/: Reports Soft, Nontender, No masses and Bowel sounds normal; Denies Tender Musculoskeletal: Reports Normal strength, ROM intact and No edema Skin: Reports Warm and Dry Neurological: Reports Sensation intact, Motor intact (Raises both legs equally without difficulty. Normal hand sales attendant. No dysarthria), Cranial nerves intact, Alert and Oriented Psychiatric: Reports Affect appropriate and Mood appropriate Interpretation EKG Interpretation EKG Interpretation By: ED Physician Time of EKG #1: 06:59 Rate: Tachy Rhythm: Other (Atrial fibrillation) Ectopy: None [place]: [place] ST Segment: Other (non-specific) Interpretation: Atrial Fibrillation. normal axis, baseline artifact, Abnormal EKG Course Course 10/05/24 06:05 10/05/24 06:05 Orders, Labs, Meds: Lab Review 10/05/24 10/05/24 06:05 06:46 WBC 11.38 H RBC 3.24 L Hgb 9.4 L Hct 29.2 L MCV 90.1 MCH 29.0 MCHC 32.2 RDW Coeff of Sri 19.3 H Plt Count 283 Immature Gran % (Auto) 0.4 Neut % (Auto) 75.6 H Lymph % (Auto) 12.7 Hoke % (Auto) 10.3 H Eos % (Auto) 0.7 Baso % (Auto) 0.3 Neut # (Auto) 8.6 H Lymph # (Auto) 1.5 [place] # (Auto) 1.2 Eos # (Auto) 0.1 Baso # (Auto) 0.0 Immature Gran # (Auto) 0.0 Sodium 135.2 Potassium 2.92 L Chloride 98.7 Carbon Dioxide 30.5 H Anion Gap 8.92 BUN 26.9 H Creatinine 1.27 H Estimated GFR (MDRD) 54.00 BUN/Creatinine Ratio 21.18 Glucose 123.9 H Calcium 8.66 Total Bilirubin 1.72 H AST 44.9 ALT 10.6 Alkaline Phosphatase 59.2 Troponin I 0.050 NT-Pro-B Natriuret Pep 13414 H Total Protein 6.70 Albumin 3.14 L Globulin 3.56 Albumin/Globulin Ratio 0.88 Orders Category Date Time Status ADMIT OBSERVATION [PLACE PATIENT OBSERVATION] .TO ADMISSION 10/05/24 07:22 Active MEDSURG (MONITORED BED) EKG-(ED ONLY) Stat CARDIO 10/05/24 06:38 Ordered NEBULIZER TREATMENT Routine CARDIO 10/05/24 05:31 Ordered NEBULIZER TREATMENT Routine CARDIO 10/05/24 06:39 Ordered NEBULIZER TREATMENT Stat CARDIO 10/05/24 05:31 Completed TELEMETRY MONITORING TELE CARE 10/05/24 07:22 Active CBC W/ AUTO DIFF Stat LAB 10/05/24 06:05 Completed CMP [COMPREHENSIVE METABOLIC PANEL] Stat LAB 10/05/24 06:05 Completed NT-PROBNP(ED) Stat LAB 10/05/24 06:05 Completed TROPONIN I Stat LAB 10/05/24 06:46 Completed Albuterol Sulfate 0.083% Neb [Albuterol 0.083% Neb] Meds 10/05/24 05:30 Discontinued 2.5 mg NEB ONCE ONE Albuterol Sulfate 0.083% Neb [Albuterol 0.083% Neb] Meds 10/05/24 07:00 Active 2.5 mg NEB Q20MIN Furosemide [Lasix] Meds 10/05/24 06:41 Discontinued 40 mg IVP ONCE ONE Methylprednisolone Sod Succ/Pf [Solu-Medrol 40 mg] Meds 10/05/24 06:38 Discontinued 80 mg IVP ONCE ONE Potassium Chloride [Potassium Chl 10% Oral Екатерина] Meds 10/05/24 06:27 Discontinued 20 meq PO ONCE STA Potassium Chloride [Potassium Chloride 20 Meq/100 ml Meds 10/05/24 06:27 Active Premix] 20 meq in 100 ml IV ONCE CHEST, 1V AP ONLY Stat RADS 10/05/24 05:[address] HEAD W/O CONTRAST Stat RADS 10/05/24 05:30 Completed Medications Generic Name Dose Route Start Last Admin Trade Name Freq PRN Reason Stop Dose Admin Albuterol Sulfate 2.5 mg 10/05/24 07:00 Albuterol Sulfate 0.083% Vial.Neb NEB 10/06/24 07:01 Q20MIN BERYL Potassium Chloride 20 meq in 100 mls @ 50 mls/hr 10/05/24 06:27 10/05/24 06:55 Potassium Chloride 20 Meq/100 Ml Premix IV 10/05/24 08:26 50 mls/hr ONCE ONE Administration Discontinued Medications Generic Name Dose Route Start Last Admin Trade Name [place] PRN Reason Stop Dose Admin Albuterol Sulfate 2.5 mg 10/05/24 05:30 10/05/24 05:57 Albuterol Sulfate 0.083% Vial.Neb NEB 10/05/24 05:31 2.5 mg ONCE ONE Administration Furosemide 40 mg 10/05/24 06:41 10/05/24 06:55 Furosemide Inj 40 Mg/4 Ml Vial IVP 10/05/24 06:42 40 mg ONCE ONE Administration Methylprednisolone Sodium Succinate 80 mg 10/05/24 06:38 10/05/24 06:55 Methylprednisolone Sod Succ/Pf 40 Mg/Ml Vial IVP 10/05/24 06:39 80 mg ONCE ONE Administration Potassium Chloride 20 meq 10/05/24 06:27 10/05/24 06:46 Potassium Chloride 40 Meq/30 Ml Cup PO 10/05/24 06:28 20 meq ONCE STA Administration Vital Signs: Temp Pulse Resp BP Pulse Ox 10/05/24 05:27 97.8 F 102 H 19 191/85 H 96 Discharge Plan Discharge Patient Disposition: PLACED OBSERVATION Discharge Problem: Tobacco use, COPD (chronic obstructive pulmonary disease) with acute bronchitis Congestive heart failure Qualifiers: Heart failure type: unspecified Heart failure chronicity: unspecified Qualified Code(s): I50.9 - Heart failure, unspecified Did you review [place] [employer] for ALL controlled substances?: Not Applicable ED Provider: TUTU BARRERA Condition: Fair Physician Progress Note: Quiet tachypnea, but said his breathing is ok. Will give lasix IV and potassium supplementation. Heavy smoker and ? if need admission. Discussed with Hussain Maciel and will admit to OBS with Tele
--- NOTE | 2024-10-05 05:54 | CT ---
EXAM: CT OF THE HEAD WITHOUT CONTRAST History: Right-sided numbness. Comparison: Head CT 10/16/2023 Technique: Multiplanar CT images through the head were obtained without the administration of IV con trast. FINDINGS: Mucosal thickening and fluid within the left maxillary sinus and left ethmoid air cells. Mastoid air cells are clear. No acute calvarial abnormalities. Intracranially the ventricular and cisternal spaces are normal in size, shape and configuration for a patient of this age. No dominant mass or midline shift. No hydrocephalous. No acute intracranial hemorrhage or abnormal extraaxial fluid collections. Impression: 1. No acute intracranial process. 2. Left maxillary and ethmoid sinusitis All CT scans are performed using dose optimization techniques as appropriate to the performed exam an d include at least one of the following: Automated exposure control, adjustment of the mA and/or kV according t o size, and the use of iterative reconstruction technique.
[2024-10-05] MEDS: ALBUTEROL 0.083% NEB NEB ONE (05:57)
--- NOTE | 2024-10-05 06:02 | DI ---
EXAM: SINGLE VIEW OF THE CHEST. History: Chronic obstructive pulmonary disease Comparison: Chest radiograph 09/01/2024 FINDINGS: Heart is mildly enlarged. No consolidation. No pleural fluid and no pneumothorax. No ac [place] osseous abnormalities. Atherosclerotic vascular calcifications. Impression: Mild cardiomegaly without acute disease in the chest
[2024-10-05 06:09] LABS: BASOPHILS % (AUTO) 0.3 % (0.0-3.0); EOSINOPHILS # (AUTO) 0.1 K/ul (0.0-0.7); EOSINOPHILS % (AUTO) 0.7 % (0.0-7.0); HEMATOCRIT 29.2 % (42.0-52.0); HEMOGLOBIN 9.4 g/dl (14.0-18.0); IMMATURE GRANULOCYTE % (AUTO) 0.4 % (0.0-5.0); LYMPHOCYTES # (AUTO) 1.5 K/uL (0.60-3.4); LYMPHOCYTES % (AUTO) 12.7 (10.0-50.0); MEAN CORPUSCULAR HGB CONC 32.2 (31.8-35.4); MEAN CORPUSCULAR VOLUME 90.1 fl (80.0-94.0); MONOCYTES # (AUTO) 1.2 K/uL (0.4-2.0); MONOCYTES % (AUTO) 10.3 (0-10); NEUTROPHILS # (AUTO) 8.6 K/ul (2.0-6.9); NEUTROPHILS % (AUTO) 75.6 % (42.2-75.2); PLATELET COUNT 283 10^3/uL (140-440); RDW COEFFICIENT OF VARIATION 19.3 % (11.6-14.8); RED BLOOD COUNT 3.24 10^6/ul (4.70-6.10); WHITE BLOOD COUNT 11.38 K/ul (4.2-10.2)
[2024-10-05 06:24] LABS: ALANINE AMINOTRANSFERASE 10.6 U/L (0-50); ALBUMIN 3.14 g/dL (3.5-5.0); ALKALINE PHOSPHATASE 59.2 U/L (56-119); ASPARTATE AMINO TRANSFERASE 44.9 U/L (17-59); BILIRUBIN,TOTAL 1.72 mg/dL (0.2-1.3); BLOOD UREA NITROGEN 26.9 mg/dL (9-20); CALCIUM 8.66 mg/dL (8.4-10.2); CARBON DIOXIDE 30.5 mmol/L (22-30.0); CHLORIDE 98.7 mmol/L (98-107); CREATININE 1.27 mg/dL (0.60-1.10); GLUCOSE 123.9 mg/dL (74-106); POTASSIUM 2.92 mmol/L (3.5-5.1); SODIUM 135.2 mmol/L (134.5-145); TOTAL PROTEIN 6.7 g/dL (6.3-8.2)
[2024-10-05] MEDS: POTASSIUM CHL 10% ORAL SOL PO STA (06:46)
[2024-10-05] MEDS: SOLU-MEDROL 40 MG IVP ONE (06:55)
[2024-10-05] MEDS: LASIX IVP ONE (06:55)
[2024-10-05] MEDS: POTASSIUM CHLORIDE 20 MEQ/100 ML PREMIX 20 MEQ/100 ML BAG IV ONE (06:55)
[2024-10-05] MEDS: ALBUTEROL 0.083% NEB NEB SCH (07:38)
[2024-10-05 08:07] LABS: SARS COV-2 RNA RAPID NAAT NEGATIVE (NEGATIVE)
[2024-10-05 10:31] VITALS: BMI 20.7
--- NOTE | 2024-10-05 10:35 | PCM ---
Date of Service Date Seen by Provider: 10/05/24 Time Seen by Provider: 09:30 Admit Day/Time Admission Date: 10/05/24 Admission Time: 07:30 Reason for Admission Chief Complaint: COPD EXACERBATION, CHF Hospital Provider Hospital Provider: MENDY NOEL, [facility] [place] [facility] Primary Care Physician: JAZZMINE MACIEL History of Present Illness History of Present Illness: 84 yo male with pmh of COPD, CHF, HTN, and thyroid disease presented to the ER from home for numbness in bilateral feet. Upon arrival to the ER, he was tachypneic and mildly tachycardic at 102. No neurological deficits noted. CT head negative. Patient states he has been more short of breath since yesterday and has a productive cough with white sputum. ER labs at baseline except BNP of >88801. He was given nebs, steroids, and lasix. Admitted to med/surg observation. Case Discussed With Case Discussed With: Patient's case was discussed with the ER Physicians, Dr. Saavedra. [facility] Medical History History of aortic stenosis Z86.79 - Personal history of other diseases of the circulatory system (ICD- 10) Bilateral carotid artery disease I77.9 - Disorder of arteries and arterioles, unspecified (ICD-10) Depression F32.A - Depression, unspecified (ICD-10) Anxiety F41.9 - Anxiety disorder, unspecified (ICD-10) COPD (chronic obstructive pulmonary disease) J44.9 - Chronic obstructive pulmonary disease, unspecified (ICD-10) Hyperlipidemia E78.5 - Hyperlipidemia, unspecified (ICD-10) Anemia D64.9 - Anemia, unspecified (ICD-10) Hypothyroidism E03.9 - Hypothyroidism, unspecified (ICD-10) Diabetes E11.9 - Type 2 diabetes mellitus without complications (ICD-10) Myocardial infarct March 2023 I21.9 - Acute myocardial infarction, unspecified (ICD-10) Hypertension I10 - Essential (primary) hypertension (ICD-10) Surgical History History of coronary artery stent placement Z95.5 - Presence of coronary angioplasty implant and graft (ICD-10) Status post spinal disc removal Z98.890 - Other specified postprocedural states (ICD-10) 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 - Acquired absence of other parts of urinary tract (ICD-10) Family History FATHER CAD (coronary artery disease) Mother CAD (coronary artery disease) Social History Smoking and tobacco status: Current every day smoker Tobacco type: cigarettes Smoking packs per day: 1 Smoking cigarettes per day: 20.0 Tobacco: How many years used: 70 Quit status: considering quitting Alcohol intake: former Details: Quit 8 years ago Substance use type: does not use Special elio needs: No Agree to transfusion: Yes Adopted: No Caregiver/support person: Yes Foster care: No Household members: children Housing: house Marital status: W / Lives independently: Yes Daycare: no daycare Number of children: 1 Financial difficulty paying for basics: not very hard service: Yes alf: No Current occupational status: retired History of recent travel: No Do you think of yourself as: straight/heterosexual Current gender identity: male Seatbelt use: always Helmet use: Yes Drives intoxicated or rides with intoxicated hazmat tanker driver: No Allergies Allergies Allergy/AdvReac Type Severity Reaction Status Date / Time No Known Allergies Allergy Verified 10/05/24 05:32 Current Medications Home Medications Acetaminophen (Acetaminophen 325 Mg Tablet) 650 mg PO Q4H PRN PRN Reason: Mild Pain Albuterol/Ipratropium (Ipratropium/Albuterol Vial.Neb) 3 ml NEB RTQ4H BERYL Last Admin: 10/05/24 10:40 Dose: 3 ml Azithromycin (Azithromycin 250 Mg Tablet) 500 mg PO DAILY BERYL Stop: 10/07/24 09:01 Furosemide (Furosemide Inj 20 Mg/2 Ml Vial) 20 mg IVP Q8H BERYL CEFTRIAXONE/D5W 1 GM PREMIX (Rocephin 1 Gm/50 Ml D5w) 1 gm in 50 mls @ 100 mls/hr IV DAILY BERYL Stop: 10/08/24 09:59 allopurinol 100 mg tablet 100 mg PO DAILY 06/25/23 [History Confirmed 09/01/24] amlodipine 10 mg tablet 5 mg PO DAILY 06/25/23 [History Confirmed 09/01/24] aspirin 81 mg tablet,delayed release (Lor Low Dose Aspirin) 81 mg PO DAILY 06/25/23 [History Confirmed 09/01/24] atorvastatin 80 mg tablet 40 mg PO BEDTIME 06/25/23 [History Confirmed 09/01/24] isosorbide mononitrate 30 mg tablet,extended release 24 hr 30 mg PO DAILY 06/25/23 [History Confirmed 09/01/24] levothyroxine 112 mcg tablet (Euthyrox) 112 mcg PO DAILY 06/25/23 [History Confirmed 09/01/24] loratadine 10 mg tablet (Allerclear) 10 mg PO DAILY 06/25/23 [History Confirmed 09/01/24] magnesium oxide 400 mg PO DAILY 06/25/23 [History Confirmed 09/01/24] nitroglycerin 0.4 mg sublingual tablet 0.4 mg sublingual Q5-15M PRN chest pain 06/25/23 [History Confirmed 09/01/24] omega 3-eer-bja-fish oil 300 mg-1,000 mg capsule (Fish Oil) 1 cap PO DAILY 06/25/23 [History Confirmed 09/01/24] furosemide 20 mg tablet 20 mg PO DAILY 08/27/23 [History Confirmed 09/01/24] Saccharomyces boulardii 250 mg capsule (Florastor) 250 mg PO BID #20 caps 10/11/23 [Rx Confirmed 09/01/24] ondansetron 4 mg disintegrating tablet 4 mg PO Q6H PRN nausea and vomiting #30 tabs 10/11/23 [Rx Confirmed 09/01/24] tramadol 50 mg tablet 50 mg PO Q8H PRN pain #14 tabs 04/30/24 [Rx Confirmed 09/01/24] memantine 10 mg tablet 10 mg PO 2XD 06/12/24 [History Confirmed 09/01/24] mirtazapine 15 mg tablet 15 mg PO BEDTIME 06/12/24 [History Confirmed 09/01/24] quetiapine 25 mg tablet 25 mg PO BEDTIME 06/12/24 [History Confirmed 09/01/24] albuterol sulfate 90 mcg/actuation breath activated powder inhaler 2 inh inhalation Q4-6H PRN shortness of breath or wheezing #1 ea 06/15/24 [Rx Confirmed 09/01/24] alprazolam 0.25 mg tablet (Xanax) 0.25 mg PO BID PRN anxiety #20 tabs 06/15/24 [Rx Confirmed 09/01/24] metoprolol succinate 50 mg tablet,extended release 24 hr 50 mg PO BID #60 tabs 06/15/24 [Rx Confirmed 09/01/24] ticagrelor 90 mg tablet (Brilinta) 90 mg PO BID #60 tabs 06/15/24 [Rx Confirmed 09/01/24] albuterol sulfate 90 mcg/actuation breath activated powder inhaler 2 inh inhalation Q6H PRN shortness of breath or wheezing #1 ea 09/01/24 [Rx] azithromycin 500 mg tablet See Rx Instructions PO .COMPLEX #3 tabs 09/01/24 [Rx] prednisone 50 mg tablet 50 mg PO DAILY #5 tabs 09/01/24 [Rx] Opioid Naive vs. Tolerant Does Patient Take Opioids?: No Is Patient Opioid Naive?: Yes What is Opioid Naive?: *Opioid Naive implies the patient is not already taking opioids or not chronically receiving opioids on a daily basis. *PRN dosing is not "usually" associated with tolerance. *Patients are at higher risk of over-sedation and aspiration. Is Patient Opioid Tolerant?: No What is Opioid Tolerant?: *Opioid Tolerance implies less than the expected response to an opioid. *Acquired tolerance is defined by the patient taking 60mg of oral morphine daily (or equianalgesic dose of another opioid) for 1 week or more. *Often associated with chronic pain. *May take more than usual dose to achieve desired pain control. Review of Systems Constitutional: Reports No symptoms Head: Reports Normocephalic Eyes: Reports No symptoms Ears: Reports No symptoms Nose: Reports No symptoms Mouth: Reports No symptoms Throat: Reports No symptoms Cardiovascular: Reports No symptoms Respiratory: Reports Cough and Shortness of air Gastrointestinal: Reports No symptoms Genitourinary: Reports No Symptoms Musculoskeletal: Reports No symptoms Endocrine: Reports No symptoms Hematology: Reports No symptoms Immunology: Reports No symptoms Neurological: Reports No symptoms Psychiatric: Reports No symptoms Physical examination Most Recent Vital Signs: Most Recent Vital Signs Temperature 98.0 F 10/05/24 09:44 Temperature Source Temporal Artery Scan 10/05/24 09:44 Temperature Source Infrared 10/05/24 05:27 Pulse Rate 98 10/05/24 09:44 Respiratory Rate 20 10/05/24 09:44 Blood Pressure 169/82 H 10/05/24 09:44 Blood Pressure Mean 111 10/05/24 09:44 Blood Pressure Left Arm 169/82 10/05/24 09:26 Blood Pressure Location Left Arm 10/05/24 09:44 Blood Pressure Position Supine 10/05/24 09:44 O2 Sat by Pulse Oximetry 91 L 10/05/24 09:44 Oxygen Delivery Method Room Air 10/05/24 10:00 Height 6 ft 1 in 10/05/24 09:26 Weight 71.2 kg 10/05/24 09:26 Telemetry Heart Rate 108 H 06/15/24 01:00 Telemetry SPO2 94 06/14/24 12:38 Appearance: Positive No Apparent Distress, Alert and Oriented x3, Ill-Appearing and Thin Skin: Positive Warm and Good Turgor HEENT: Positive Normocephalic and PERRLA Neck: Positive Supple and Midline Trachea Chest/Lungs: Positive Symmetrical With Equal Breath Sounds and Rhonci Heart: Positive RRR and Pulses Normal GI/: Positive Soft, Nontender, Bowel Sounds Normal and No Distention Musculoskeletal: Positive Not Examined Extremities: Positive Intact Peripheral Pulses, Stable Joints Without Laxity and Good ROM in All Joints Neurological: Positive Sensation Intact, Motor intact, Reflexes Intact, Alert and Oriented Labs This Visit Labs This Visit: Labs This Visit 10/05/24 10/05/24 10/05/24 06:05 06:46 07:22 WBC 11.38 H RBC 3.24 L Hgb 9.4 L Hct 29.2 L MCV 90.1 MCH 29.0 MCHC 32.2 RDW Coeff of Sri 19.3 H Plt Count 283 Immature Gran % (Auto) 0.4 Neut % (Auto) 75.6 H Lymph % (Auto) 12.7 [place] % (Auto) 10.3 H Eos % (Auto) 0.7 Baso % (Auto) 0.3 Neut # (Auto) 8.6 H Lymph # (Auto) 1.5 [place] # (Auto) 1.2 Eos # (Auto) 0.1 Baso # (Auto) 0.0 Immature Gran # (Auto) 0.0 Sodium 135.2 Potassium 2.92 L Chloride 98.7 Carbon Dioxide 30.5 H Anion Gap 8.92 BUN 26.9 H Creatinine 1.27 H Estimated GFR (MDRD) 54.00 BUN/Creatinine Ratio 21.18 Glucose 123.9 H Calcium 8.66 Total Bilirubin 1.72 H AST 44.9 ALT 10.6 Alkaline Phosphatase 59.2 Troponin I 0.050 NT-Pro-B Natriuret Pep 42014 H Total Protein 6.70 Albumin 3.14 L Globulin 3.56 Albumin/Globulin Ratio 0.88 SARS CoV-2 RNA Rapid JESICA Negative Imaging Imaging: EXAM: SINGLE VIEW OF THE CHEST. History: Chronic obstructive pulmonary disease Comparison: Chest radiograph 09/01/2024 FINDINGS: Heart is mildly enlarged. No consolidation. No pleural fluid and no pneumothorax. No acute osseous abnormalities. Atherosclerotic vascular calcifications. Impression: Mild cardiomegaly without acute disease in the chest Review Statement Review Statement: I have independently reviewed and interpreted the labs/EKGs/imaging that were ordered by the ER provider. I have reviewed all outside records that are available currently in our EMR including imaging/notes/labs from previous visits. Plan Plan: 1. CHFpEF Exacerbation - lasix 20 mg Q8H, I&O, daily weight, 1800mL fluid restriction, last echo 04/30 EF 58% 2. COPD Exacerbation - rocephin, azith, steroids, nebs 3. HTN - chronic, continue home medications 4. HLD - chronic, continue home medications 5. Thyroid disease - chronic, continue home medications DVT Prophylaxis: Brilinta Time Spent: Greater than 80 minutes spent with patient, 50% of the time spent with this patient was devoted to counseling and coordination of care. [facility]in minutes spent discussing advance care planning. Disposition: Admit to: Med/Surg Observation DNR Discussed Plan of Care with Dr. Iva Bay. Medications Medication Orders: Medications Ordered Category Date Time Status Acetaminophen [Tylenol] Meds 10/05/24 09:42 Active 650 mg PO Q4H PRN Azithromycin [Zithromax] Meds 10/05/24 10:00 Active 500 mg PO DAILY Ceftriaxone/D5w 1 gm Premix [Rocephin 1 gm/50 ml D5w] Meds 10/05/24 10:00 Active 1 gm in 50 ml IV DAILY Furosemide [Lasix] Meds 10/05/24 18:00 Active 20 mg IVP Q8H Ipratropium/Albuterol Neb [Duoneb] Meds 10/05/24 10:00 Active 3 ml NEB RTQ4H
[2024-10-05] MEDS: DUONEB NEB SCH (10:40)
[2024-10-05] MEDS: ROCEPHIN 1 GM/50 ML D5W 1 GM/50 ML BAG IV SCH (13:30)
[2024-10-05] MEDS: ZITHROMAX PO SCH (13:30)
[2024-10-05] MEDS: SYMBICORT 160-4.5 MCG INHALER IH SCH (13:55)
[2024-10-05] MEDS: COZAAR PO SCH (13:56)
[2024-10-05] MEDS: NORVASC PO SCH (13:57)
[2024-10-05] MEDS: FLOMAX PO SCH (13:57)
[2024-10-05] MEDS: CLARITIN PO SCH (13:57)
[2024-10-05] MEDS: OMEGA-3 FISH OIL PO SCH (13:57)
[2024-10-05] MEDS: ASPIRIN EC PO SCH (13:57)
[2024-10-05] MEDS: SYNTHROID PO SCH (13:57)
[2024-10-05] MEDS: ELIQUIS PO SCH (13:58)
[2024-10-05] MEDS: ZYLOPRIM PO SCH (13:58)
[2024-10-05] MEDS: LOPRESSOR IVP STA (16:30)
[2024-10-05] MEDS: PROTONIX PO SCH (16:31)
[2024-10-05] MEDS: LASIX IVP SCH (17:17)
[2024-10-05] MEDS ORDERED: LASIX IVP SCH (18:00)
[2024-10-05] MEDS: LIPITOR PO SCH (20:17)
[2024-10-05] MEDS: TENORMIN PO SCH (20:17)
[2024-10-05] MEDS ORDERED: NON-FORMULARY MEDICATION (Fluticasone Propion-Salmeterol [Advair Diskus] 250-50 mcg/dose b IH SCH (21:00)
[2024-10-06 05:36] LABS: BASOPHILS % (AUTO) 0.2 % (0.0-3.0); HEMATOCRIT 28.3 % (42.0-52.0); HEMOGLOBIN 9.1 g/dl (14.0-18.0); IMMATURE GRANULOCYTE # (AUTO) 0.1 (0.0-1.0); IMMATURE GRANULOCYTE % (AUTO) 0.7 % (0.0-5.0); LYMPHOCYTES # (AUTO) 1.4 K/uL (0.60-3.4); LYMPHOCYTES % (AUTO) 10.2 (10.0-50.0); MEAN CORPUSCULAR HEMOGLOBIN 28.6 pg (27.0-31.0); MEAN CORPUSCULAR HGB CONC 32.2 (31.8-35.4); MONOCYTES # (AUTO) 1.2 K/uL (0.4-2.0); MONOCYTES % (AUTO) 8.8 (0-10); NEUTROPHILS # (AUTO) 10.8 K/ul (2.0-6.9); NEUTROPHILS % (AUTO) 80.1 % (42.2-75.2); PLATELET COUNT 304 10^3/uL (140-440); RDW COEFFICIENT OF VARIATION 19.3 % (11.6-14.8); RED BLOOD COUNT 3.18 10^6/ul (4.70-6.10); WHITE BLOOD COUNT 13.49 K/ul (4.2-10.2)
[2024-10-06 05:53] LABS: ALANINE AMINOTRANSFERASE 10.7 U/L (0-50); ALBUMIN 3.08 g/dL (3.5-5.0); ALKALINE PHOSPHATASE 56.7 U/L (56-119); ASPARTATE AMINO TRANSFERASE 36.6 U/L (17-59); BILIRUBIN,TOTAL 0.6 mg/dL (0.2-1.3); CALCIUM 8.62 mg/dL (8.4-10.2); CHLORIDE 99.9 mmol/L (98-107); CREATININE 1.43 mg/dL (0.60-1.10); GLUCOSE 151.1 mg/dL (74-106); POTASSIUM 3.01 mmol/L (3.5-5.1); SODIUM 137.4 mmol/L (134.5-145); TOTAL PROTEIN 6.43 g/dL (6.3-8.2)
[2024-10-06] MEDS: TYLENOL PO PRN (06:45)
[2024-10-06] MEDS: TENORMIN PO SCH (06:45)
[2024-10-06] MEDS: ZOFRAN SDV IVP STA (07:03)
[2024-10-06] MEDS: TORADOL IVP ONE (08:05)
[2024-10-06] MEDS: K-DUR PO ONE (09:38)
[2024-10-06] MEDS: POTASSIUM CHLORIDE 20 MEQ/100 ML PREMIX 20 MEQ/100 ML BAG IV ONE (09:41)
--- NOTE | 2024-10-06 11:19 | PCM.PROG ---
Date/Time Seen Date Seen by Provider: 10/06/24 Time Seen by Provider: 09:00 Provider Provider: MENDY NOEL, [facility] Chief Complaint Chief Complaint: COPD EXACERBATION, CHF Subjective Subjective: Patient went into Afib RVR this am. HR up to 170s, with nausea and palpitations present. HR improved to 110s-120s. Given atenolol 25 mg PO and improved to 90s. Symptoms resolved. States SOB Patient started complaining of R hip pain yesterday afternoon and has continued to worsen. Denies any falls that he can think of. No bruising present. Objective Appearance: Positive No Apparent Distress and Alert and Oriented x3 Chest/Lungs: Positive Symmetrical With Equal Breath Sounds, Clear to Auscultation Bilaterally and Good Air Movement all 4 Lung [place] Heart: Positive Pulses Normal and Irregular Rhythm GI/: Positive Soft, Nontender, Bowel Sounds Normal and No Distention Musculoskeletal: Positive Misalignment (R hip), Asymmetry (R hip), Defects (shortening to R hip), Tenderness (R hip) and Decreased ROM (R hip) Neurological: Positive Sensation Intact, Alert and Oriented Vital Signs Vital Signs: Vital Signs: Last 24 Hours 10/05/24 12:00 10/05/24 13:00 10/05/24 13:00 Temperature Temperature Source Pulse Rate Respiratory Rate Blood Pressure Blood Pressure Mean Blood Pressure Location Blood Pressure Position O2 Sat by Pulse Oximetry Oxygen Delivery Method Room Air Room Air Height Weight Telemetry Type Remote Telemetry Telemetry Monitoring Continues Irregular Telemetry Rate (Approximate) 90-100 BPM Telemetry Heart Rate EKG QRS Interval 0.08 Telemetry Strip Reading Afib w/ PVC's 10/05/24 13:15 10/05/24 14:00 10/05/24 15:00 Temperature 98.0 F Temperature Source Temporal Artery Scan Pulse Rate 98 Respiratory Rate 20 Blood Pressure 169/82 H Blood Pressure Mean 111 Blood Pressure Location Left Arm Blood Pressure Position Supine O2 Sat by Pulse Oximetry 91 L Oxygen Delivery Method Room Air Room Air Room Air Height Weight Telemetry Type Telemetry Monitoring Irregular Telemetry Rate (Approximate) Telemetry Heart Rate EKG QRS Interval Telemetry Strip Reading 10/05/24 16:00 10/05/24 17:00 10/05/24 18:00 Temperature Temperature Source Pulse Rate Respiratory Rate Blood Pressure Blood Pressure Mean Blood Pressure Location Blood Pressure Position O2 Sat by Pulse Oximetry Oxygen Delivery Method Room Air Room Air Room Air Height Weight Telemetry Type Telemetry Monitoring Irregular Telemetry Rate (Approximate) Telemetry Heart Rate EKG QRS Interval Telemetry Strip Reading 10/05/24 18:00 10/05/24 19:00 10/05/24 19:00 Temperature 98.0 F Temperature Source Temporal Artery Scan Pulse Rate 97 Respiratory Rate 18 Blood Pressure 130/84 Blood Pressure Mean 99 Blood Pressure Location Left Arm Blood Pressure Position Supine O2 Sat by Pulse Oximetry 95 Oxygen Delivery Method Room Air Room Air Height Weight Telemetry Type Remote Telemetry Telemetry Monitoring Continues Irregular Telemetry Rate (Approximate) 110-120 BPM Telemetry Heart Rate EKG QRS Interval 0.05 L Telemetry Strip Reading AFIB W/ RVR 10/05/24 19:43 10/05/24 19:43 10/05/24 21:00 Temperature Temperature Source Pulse Rate Respiratory Rate Blood Pressure Blood Pressure Mean Blood Pressure Location Blood Pressure Position O2 Sat by Pulse Oximetry Oxygen Delivery Method Room Air Room Air Room Air Height Weight Telemetry Type Telemetry Monitoring Irregular Telemetry Rate (Approximate) Telemetry Heart Rate EKG QRS Interval Telemetry Strip Reading 10/05/24 22:00 10/05/24 22:00 10/05/24 23:00 Temperature 98 F Temperature Source Temporal Artery Scan Pulse Rate 99 Respiratory Rate 18 Blood Pressure 137/91 H Blood Pressure Mean 106 Blood Pressure Location Left Arm Blood Pressure Position Supine O2 Sat by Pulse Oximetry 97 Oxygen Delivery Method Room Air Room Air Room Air Height Weight Telemetry Type Telemetry Monitoring Irregular Telemetry Rate (Approximate) Telemetry Heart Rate EKG QRS Interval Telemetry Strip Reading 10/06/24 00:00 10/06/24 01:00 10/06/24 01:00 Temperature Temperature Source Pulse Rate Respiratory Rate Blood Pressure Blood Pressure Mean Blood Pressure Location Blood Pressure Position O2 Sat by Pulse Oximetry Oxygen Delivery Method Room Air Room Air Height Weight Telemetry Type Remote Telemetry Telemetry Monitoring Continues Irregular Telemetry Rate (Approximate) 90-100 BPM Telemetry Heart Rate EKG QRS Interval 0.06 Telemetry Strip Reading AFIB 10/06/24 01:50 10/06/24 01:57 10/06/24 03:00 Temperature 97.4 F L Temperature Source Temporal Artery Scan Pulse Rate 90 Respiratory Rate 18 Blood Pressure 136/68 Blood Pressure Mean 90 Blood Pressure Location Left Arm Blood Pressure Position Supine O2 Sat by Pulse Oximetry 96 Oxygen Delivery Method Room Air Room Air Room Air Height Weight Telemetry Type Telemetry Monitoring Irregular Telemetry Rate (Approximate) Telemetry Heart Rate EKG QRS Interval Telemetry Strip Reading 10/06/24 04:00 10/06/24 05:00 10/06/24 05:39 Temperature 97.6 F Temperature Source Temporal Artery Scan Pulse Rate 103 H Respiratory Rate 20 Blood Pressure 164/91 H Blood Pressure Mean 115 Blood Pressure Location Left Arm Blood Pressure Position Supine O2 Sat by Pulse Oximetry 98 Oxygen Delivery Method Room Air Room Air Room Air Height Weight Telemetry Type Telemetry Monitoring Irregular Telemetry Rate (Approximate) Telemetry Heart Rate EKG QRS Interval Telemetry Strip Reading 10/06/24 05:39 10/06/24 05:46 10/06/24 07:00 Temperature Temperature Source Pulse Rate Respiratory Rate Blood Pressure Blood Pressure Mean Blood Pressure Location Blood Pressure Position O2 Sat by Pulse Oximetry Oxygen Delivery Method Room Air Room Air Height Weight 71.8 kg Telemetry Type Telemetry Monitoring Irregular Telemetry Rate (Approximate) Telemetry Heart Rate EKG QRS Interval Telemetry Strip Reading 10/06/24 07:00 10/06/24 07:00 10/06/24 09:25 Temperature Temperature Source Pulse Rate Respiratory Rate Blood Pressure Blood Pressure Mean Blood Pressure Location Blood Pressure Position O2 Sat by Pulse Oximetry Oxygen Delivery Method Room Air Height 6 ft 1 in Weight 71.8 kg Telemetry Type Remote Telemetry Telemetry Monitoring Continues Irregular Telemetry Rate (Approximate) 120-130 BPM Telemetry Heart Rate 121 H EKG QRS Interval 0.08 Telemetry Strip Reading Afib RVR w/ PVC 's. 10/06/24 10:00 Temperature 97.5 F L Temperature Source Temporal Artery Scan Pulse Rate 97 Respiratory Rate 16 Blood Pressure 153/87 H Blood Pressure Mean 109 Blood Pressure Location Left Arm Blood Pressure Position Supine O2 Sat by Pulse Oximetry 97 Oxygen Delivery Method Room Air Height Weight Telemetry Type Telemetry Monitoring Irregular Telemetry Rate (Approximate) Telemetry Heart Rate EKG QRS Interval Telemetry Strip Reading Lab Results Lab Results: Lab Results: Last 24 Hours 10/06/24 05:21 WBC 13.49 H RBC 3.18 L Hgb 9.1 L Hct 28.3 L MCV 89.0 MCH 28.6 MCHC 32.2 RDW Coeff of Sri 19.3 H Plt Count 304 Immature Gran % (Auto) 0.7 Neut % (Auto) 80.1 H Lymph % (Auto) 10.2 [place] % (Auto) 8.8 Eos % (Auto) 0.0 Baso % (Auto) 0.2 Neut # (Auto) 10.8 H Lymph # (Auto) 1.4 [place] # (Auto) 1.2 Eos # (Auto) 0.0 Baso # (Auto) 0.0 Immature Gran # (Auto) 0.1 Sodium 137.4 Potassium 3.01 L Chloride 99.9 Carbon Dioxide 32.0 H Anion Gap 8.51 BUN 31.0 H Creatinine 1.43 H Estimated GFR (MDRD) 47.00 BUN/Creatinine Ratio 21.67 Glucose 151.1 H Calcium 8.62 Total Bilirubin 0.60 AST 36.6 ALT 10.7 Alkaline Phosphatase 56.7 Total Protein 6.43 Albumin 3.08 L Globulin 3.35 Albumin/Globulin Ratio 0.91 Additional Comments Additional Comments: I have independently reviewed and interpreted the labs/EKGs/imaging ordered during this hospital stay. I have reviewed outside records that are available in our EMR that pertain to medical stay including imaging/notes/labs from previous visits. Active Medications Active Medications: Medications Generic Name Dose Route Start Last Admin Trade Name Freq PRN Reason Stop Dose Admin Acetaminophen 650 mg 10/05/24 09:42 10/06/24 06:45 Acetaminophen 325 Mg Tablet PO 650 mg Q4H PRN Administration Mild Pain Albuterol/Ipratropium 3 ml 10/05/24 10:00 10/06/24 10:18 Ipratropium/Albuterol Vial.Neb NEB 3 ml RTQ4H BERYL Administration Allopurinol 100 mg 10/05/24 13:30 10/06/24 08:06 Allopurinol 100 Mg Tablet PO 100 mg DAILY BERYL Administration Amlodipine Besylate 5 mg 10/05/24 13:30 10/06/24 08:05 Amlodipine Besylate 5 Mg Tablet PO 5 mg DAILY BERYL Administration Apixaban 2.5 mg 10/05/24 14:00 10/06/24 08:06 Apixaban 5 Mg Tab PO 2.5 mg BID BERYL Administration Aspirin 81 mg 10/05/24 13:30 10/06/24 07:37 Aspirin 81 Mg Tablet. PO 81 mg DAILYWM2 BERYL Administration Atenolol 25 mg 10/06/24 06:30 10/06/24 06:45 Atenolol 25 Mg Tablet PO 25 mg BID BERYL Administration Atorvastatin Calcium 40 mg 10/05/24 21:00 10/05/24 20:17 Atorvastatin Calcium 20 Mg Tablet PO 40 mg BEDTIME BERYL Administration Azithromycin 500 mg 10/05/24 10:00 10/06/24 08:05 Azithromycin 250 Mg Tablet PO 10/07/24 09:01 500 mg DAILY BERYL Administration Budesonide/Formoterol Fumarate 2 puff 10/05/24 13:30 10/06/24 08:05 Budesonide/Formoterol Fumarate 160/4.5 Mcg Inhaler IH 2 puff BID BERYL Administration Fish Oil 1,000 mg 10/05/24 13:30 10/06/24 08:05 [place]-3/Dha/Epa/Fish Oil 1,000 Mg Capsule PO 1,000 mg DAILY BERYL Administration Furosemide 20 mg 10/05/24 18:00 10/06/24 10:47 Furosemide Inj 20 Mg/2 Ml Vial IVP 20 mg Q8H BERYL Administration CEFTRIAXONE/D5W 1 GM PREMIX 1 gm in 50 mls @ 100 mls/hr 10/05/24 10:00 10/06/24 08:06 Rocephin 1 Gm/50 Ml D5w IV 10/08/24 09:59 100 mls/hr DAILY BERYL Administration Levothyroxine Sodium 112 mcg 10/05/24 13:30 10/06/24 05:20 Levothyroxine Sodium 112 Mcg Tablet PO 112 mcg QDAC2 BERYL Administration Loratadine 10 mg 10/05/24 13:30 10/06/24 08:05 Loratadine 10 Mg Tablet PO 10 mg DAILY BERYL Administration Losartan Potassium 50 mg 10/05/24 14:00 10/06/24 08:06 Losartan Potassium 100 Mg Tablet PO 50 mg BID BERYL Administration Pantoprazole Sodium 40 mg 10/05/24 17:00 10/06/24 05:20 Pantoprazole Sodium 40 Mg Tablet.Dr PO 40 mg BIDAC2 BERYL Administration Sodium Chloride 1 syr 10/05/24 21:00 10/06/24 05:20 0.9% Sodium Chloride 10 Ml Disp.Syrin IVF 1 syr Q8HR BERYL Administration Sodium Chloride 1 syr 10/05/24 17:18 10/05/24 17:19 0.9% Sodium Chloride 10 Ml Disp.Syrin IVF 1 syr PRN PRN Administration Maintain IV Patency Tamsulosin HCl 0.4 mg 10/05/24 13:30 10/06/24 08:05 Tamsulosin Hcl 0.4 Mg Cap.Er.24h PO 0.4 mg DAILY BERYL Administration Plan Plan: 1. CHFpEF Exacerbation - lasix 20 mg Q8H, I&O, daily weight, 1800mL fluid r estriction, last echo 04/30 EF 58% 2. COPD Exacerbation - rocephin, azith, steroids, nebs 3. Afib RVR - improved with vagal maneuvers, increased atenolol to BID from bedtime 4. HTN - chronic, continue home medications 5. HLD - chronic, continue home medications 6. Thyroid disease - chronic, continue home medications 7. R hip pain - external rotation and shortening, xrays ordered DVT Prophylaxis: Alexi Dispo: Admit to Inpatient today due to >48 hours of care needed at this time, patient also requesting residential placement due to being able to care for self and son at home is not helpful to him. Referral sent to [facility] per his request. Review Statement Review Statement: I have personally discussed and reviewed the patient's visit/currently labs/imaging/decision making with Dr. Bay, my supervising attending. Greater that 50 minutes spent with patient, 50% of the time spent with this patient was devoted to counseling and coordination of care.
--- NOTE | 2024-10-06 13:10 | DI ---
EXAM: RADIOGRAPHS, RIGHT HIP AND PELVIS HISTORY: Right hip pain. COMPARISON: CT 05/02/2024. TECHNIQUE: Three views. FINDINGS: Bone mineralization normal. No fracture or dislocation. There is moderate right hip join t space narrowing with mild marginal osteophyte formation. No erosions are seen. Extensive atherosc lerotic calcifications present. No localized soft tissue abnormality detected. IMPRESSION: Osteoarthritis without acute fracture.
[2024-10-06] MEDS: ZOFRAN SDV IVP PRN (15:00)
--- NOTE | 2024-10-06 15:14 | CT ---
EXAM: CT RIGHT HIP WITHOUT CONTRAST. HISTORY: Right hip rotation and shortening TECHNIQUE: CT scan of the right hip without intravenous contrast was performed with standard protoc ol. Coronal and sagittal reformatted images were obtained from the axial source images. Images were reviewed on a high-resolution PACS workstation. DICOM images are available. COMPARISON: Same day radiographs FINDINGS: No fracture or dislocation. Osseous demineralization. Moderate right hip osteoarthritis. Heterotop ic ossification at the right common hamstrings origin. No suspicious lytic or sclerotic osseous lesi ons. Overall muscle bulk is within normal limits for age. No adenopathy. Atherosclerotic vascular calcifications. IMPRESSION: 1. No acute fracture or dislocation. Given the reported history and the degree of osseous demineral ization if there is high clinical suspicion for occult fracture further evaluation with MRI could be obtained. 2. Moderate right hip osteoarthritis. All CT scans are performed using dose optimization techniques as appropriate to the performed exam an d include at least one of the following: Automated exposure control, adjustment of the mA and/or kV according t o size, and the use of iterative reconstruction technique.
[2024-10-06] MEDS: PREDNISONE PO SCH (16:14)
[2024-10-06] MEDS: TORADOL IVP PRN (18:17)
[2024-10-07 06:01] LABS: BASOPHILS % (AUTO) 0.1 % (0.0-3.0); HEMATOCRIT 30.9 % (42.0-52.0); HEMOGLOBIN 9.8 g/dl (14.0-18.0); IMMATURE GRANULOCYTE # (AUTO) 0.1 (0.0-1.0); IMMATURE GRANULOCYTE % (AUTO) 0.7 % (0.0-5.0); LYMPHOCYTES % (AUTO) 6.2 (10.0-50.0); MEAN CORPUSCULAR HEMOGLOBIN 28.7 pg (27.0-31.0); MEAN CORPUSCULAR HGB CONC 31.7 (31.8-35.4); MEAN CORPUSCULAR VOLUME 90.6 fl (80.0-94.0); MONOCYTES # (AUTO) 0.7 K/uL (0.4-2.0); MONOCYTES % (AUTO) 4.3 (0-10); NEUTROPHILS # (AUTO) 14.3 K/ul (2.0-6.9); NEUTROPHILS % (AUTO) 88.7 % (42.2-75.2); PLATELET COUNT 356 10^3/uL (140-440); RDW COEFFICIENT OF VARIATION 19.5 % (11.6-14.8); RED BLOOD COUNT 3.41 10^6/ul (4.70-6.10); WHITE BLOOD COUNT 16.11 K/ul (4.2-10.2)
[2024-10-07 06:25] LABS: ALBUMIN 3.3 g/dL (3.5-5.0); BILIRUBIN,TOTAL 0.8 mg/dL (0.2-1.3); CALCIUM 8.9 mg/dL (8.4-10.2); POTASSIUM 4.5 mmol/L (3.5-5.1); TOTAL PROTEIN 6.7 g/dL (6.3-8.2)
[2024-10-07] MEDS: PREDNISONE PO SCH (08:17)
[2024-10-07] MEDS: TENORMIN PO ONE (08:42)
[2024-10-07] MEDS: TENORMIN PO SCH (08:43)
--- NOTE | 2024-10-07 11:50 | PCM.PROG ---
Date/Time Seen Date Seen by Provider: 10/07/24 Time Seen by Provider: 08:45 Provider [facility] Chief Complaint Chief Complaint: COPD EXACERBATION, CHF Subjective Subjective: Nauseated and reports shortness of breath this am. HR above 100 still. Now requiring 2L of oxygen. Objective Appearance: Positive No Apparent Distress and Ill-Appearing Chest/Lungs: Positive Symmetrical With Equal Breath Sounds and Rhonci Heart: Positive Pulses Normal, Irregular Rhythm and Tachycardia GI/: Positive Soft, Nontender, Bowel Sounds Normal and No Distention Musculoskeletal: Positive Not Examined Neurological: Positive Sensation Intact, Motor intact, Alert and Oriented Vital Signs Vital Signs: Vital Signs: Last 24 Hours 10/06/24 13:00 10/06/24 14:00 10/06/24 17:41 Temperature 97.2 F L 97.7 F Temperature Source Temporal Artery Scan Temporal Artery Scan Pulse Rate 100 94 Respiratory Rate 18 Blood Pressure 152/86 H 161/89 H Blood Pressure Mean 108 113 Blood Pressure Location Left Arm Left Arm Blood Pressure Position Supine Supine O2 Sat by Pulse Oximetry 96 94 L Oxygen Delivery Method Room Air Room Air Oxygen Flow Rate Weight Telemetry Type Remote Telemetry Telemetry Monitoring Continues Irregular Telemetry Rate (Approximate) 100-110 BPM Telemetry Heart Rate EKG QRS Interval 0.07 Telemetry Strip Reading Atrial fib with RVR 10/06/24 19:00 10/06/24 19:52 10/06/24 22:00 Temperature 97.5 F L Temperature Source Temporal Artery Scan Pulse Rate 111 H Respiratory Rate 16 20 Blood Pressure 173/79 H Blood Pressure Mean 110 Blood Pressure Location Left Arm Blood Pressure Position Supine O2 Sat by Pulse Oximetry 95 Oxygen Delivery Method Room Air Room Air Oxygen Flow Rate Weight Telemetry Type Remote Telemetry Telemetry Monitoring Continues Irregular Telemetry Rate (Approximate) Telemetry Heart Rate 133 H EKG QRS Interval 0.09 Telemetry Strip Reading AFIB with RVR 10/07/24 01:00 10/07/24 02:00 10/07/24 04:00 Temperature 97.7 F Temperature Source Temporal Artery Scan Pulse Rate 106 H 92 Respiratory Rate 16 18 Blood Pressure 174/88 H Blood Pressure Mean 116 Blood Pressure Location Right Arm Blood Pressure Position Supine O2 Sat by Pulse Oximetry 100 89 L Oxygen Delivery Method Room Air Room Air Oxygen Flow Rate Weight Telemetry Type Remote Telemetry Telemetry Monitoring Continues Irregular Telemetry Rate (Approximate) Telemetry Heart Rate 105 H EKG QRS Interval 0.04 L Telemetry Strip Reading AFIB w/ RVR 10/07/24 05:19 10/07/24 05:19 10/07/24 05:23 Temperature 97.4 F L Temperature Source Temporal Artery Scan Pulse Rate 104 H Respiratory Rate 18 Blood Pressure 159/83 H Blood Pressure Mean 108 Blood Pressure Location Left Arm Blood Pressure Position Supine O2 Sat by Pulse Oximetry 97 96 Oxygen Delivery Method Nasal Cannula Nasal Cannula Oxygen Flow Rate 2 2 Weight 71 kg Telemetry Type Telemetry Monitoring Irregular Telemetry Rate (Approximate) Telemetry Heart Rate EKG QRS Interval Telemetry Strip Reading 10/07/24 07:00 10/07/24 08:00 10/07/24 10:00 Temperature 97.1 F L Temperature Source Temporal Artery Scan Pulse Rate 88 Respiratory Rate 16 Blood Pressure 163/91 H Blood Pressure Mean 115 Blood Pressure Location Left Arm Blood Pressure Position O2 Sat by Pulse Oximetry 97 Oxygen Delivery Method Room Air Nasal Cannula Oxygen Flow Rate 2 Weight Telemetry Type Remote Telemetry Telemetry Monitoring Continues Irregular Telemetry Rate (Approximate) Telemetry Heart Rate 87 EKG QRS Interval 0.07 Telemetry Strip Reading AFIB 10/07/24 10:00 Temperature Temperature Source Pulse Rate Respiratory Rate Blood Pressure Blood Pressure Mean Blood Pressure Location Blood Pressure Position O2 Sat by Pulse Oximetry 99 Oxygen Delivery Method Nasal Cannula Oxygen Flow Rate 2 Weight Telemetry Type Telemetry Monitoring Irregular Telemetry Rate (Approximate) Telemetry Heart Rate EKG QRS Interval Telemetry Strip Reading Lab Results Lab Results: Lab Results: Last 24 Hours 10/07/24 05:47 WBC 16.11 H RBC 3.41 L Hgb 9.8 L Hct 30.9 L MCV 90.6 MCH 28.7 MCHC 31.7 L RDW Coeff of Sri 19.5 H Plt Count 356 Immature Gran % (Auto) 0.7 Neut % (Auto) 88.7 H Lymph % (Auto) 6.2 L Woodson % (Auto) 4.3 Eos % (Auto) 0.0 Baso % (Auto) 0.1 Neut # (Auto) 14.3 H Lymph # (Auto) 1.0 Woodson # (Auto) 0.7 Eos # (Auto) 0.0 Baso # (Auto) 0.0 Immature Gran # (Auto) 0.1 Sodium 137.0 Potassium 4.50 Chloride 98.0 Carbon Dioxide 30.0 Anion Gap 13.50 BUN 39.0 H Creatinine 2.00 H D Estimated GFR (MDRD) 32.00 BUN/Creatinine Ratio 19.50 Glucose 152.0 H Calcium 8.90 Total Bilirubin 0.80 AST 57.0 ALT 14.0 Alkaline Phosphatase 61.0 Total Protein 6.70 Albumin 3.30 L Globulin 3.40 Albumin/Globulin Ratio 0.97 Additional Comments Additional Comments: I have independently reviewed and interpreted the labs/EKGs/imaging ordered during this hospital stay. I have reviewed outside records that are available in our EMR that pertain to medical stay including imaging/notes/labs from previous visits. Active Medications Active Medications: Medications Generic Name Dose Route Start Last Admin Trade Name Freq PRN Reason Stop Dose Admin Acetaminophen 650 mg 10/05/24 09:42 10/06/24 20:48 Acetaminophen 325 Mg Tablet PO 650 mg Q4H PRN Administration Mild Pain Albuterol/Ipratropium 3 ml 10/05/24 10:00 10/07/24 10:32 Ipratropium/Albuterol Vial.Neb NEB 3 ml RTQ4H BERYL Administration Allopurinol 100 mg 10/05/24 13:30 10/07/24 08:08 Allopurinol 100 Mg Tablet PO 100 mg DAILY BERYL Administration Amlodipine Besylate 5 mg 10/05/24 13:30 10/07/24 08:10 Amlodipine Besylate 5 Mg Tablet PO 5 mg DAILY BERYL Administration Apixaban 2.5 mg 10/05/24 14:00 10/07/24 08:09 Apixaban 5 Mg Tab PO 2.5 mg BID BERYL Administration Aspirin 81 mg 10/05/24 13:30 10/07/24 08:06 Aspirin 81 Mg Tablet. PO 81 mg DAILYWM2 BERYL Administration Atenolol 50 mg 10/07/24 09:00 10/07/24 08:43 Atenolol 25 Mg Tablet PO Not Given BID BERYL Atorvastatin Calcium 40 mg 10/05/24 21:00 10/06/24 20:47 Atorvastatin Calcium 20 Mg Tablet PO 40 mg BEDTIME BERYL Administration Budesonide/Formoterol Fumarate 2 puff 10/05/24 13:30 10/07/24 08:10 Budesonide/Formoterol Fumarate 160/4.5 Mcg Inhaler IH 2 puff BID BERYL Administration Fish Oil 1,000 mg 10/05/24 13:30 10/07/24 08:08 Western-3/Dha/Epa/Fish Oil 1,000 Mg Capsule PO 1,000 mg DAILY BERYL Administration Furosemide 20 mg 10/07/24 17:00 Furosemide Inj 20 Mg/2 Ml Vial IVP BIDAC2 BERYL CEFTRIAXONE/D5W 1 GM PREMIX 1 gm in 50 mls @ 100 mls/hr 10/05/24 10:00 10/07/24 08:10 Rocephin 1 Gm/50 Ml D5w IV 10/08/24 09:59 100 mls/hr DAILY BERYL Administration Ketorolac Tromethamine 15 mg 10/06/24 17:47 10/07/24 05:59 Ketorolac Tromethamine 15 Mg/Ml Vial IVP 10/10/24 17:47 15 mg Q6HR PRN Administration Pain Levothyroxine Sodium 112 mcg 10/05/24 13:30 10/07/24 05:17 Levothyroxine Sodium 112 Mcg Tablet PO 112 mcg QDAC2 BERYL Administration Loratadine 10 mg 10/05/24 13:30 10/07/24 08:07 Loratadine 10 Mg Tablet PO 10 mg DAILY BERYL Administration Losartan Potassium 50 mg 10/05/24 14:00 10/07/24 08:10 Losartan Potassium 100 Mg Tablet PO 50 mg BID BERYL Administration Ondansetron HCl 4 mg 10/06/24 14:37 10/07/24 08:14 Ondansetron Hcl/Pf 4 Mg/2 Ml Sdv IVP 4 mg Q6H PRN Administration Nausea / Vomiting Pantoprazole Sodium 40 mg 10/05/24 17:00 10/07/24 05:17 Pantoprazole Sodium 40 Mg Tablet.Dr PO 40 mg BIDAC2 BERYL Administration Prednisone 5 mg 10/07/24 07:30 10/07/24 08:17 Prednisone 5 Mg Tablet PO 10/08/24 07:29 5 mg BIDWM2 BERYL Administration Prednisone 5 mg 10/08/24 07:30 Prednisone 5 Mg Tablet PO 10/09/24 07:29 DAILYWM2 BERYL Sodium Chloride 1 syr 10/05/24 21:00 10/07/24 05:17 0.9% Sodium Chloride 10 Ml Disp.Syrin IVF 1 syr Q8HR BERYL Administration Sodium Chloride 1 syr 10/05/24 17:18 10/05/24 17:19 0.9% Sodium Chloride 10 Ml Disp.Syrin IVF 1 syr PRN PRN Administration Maintain IV Patency Tamsulosin HCl 0.4 mg 10/05/24 13:30 10/07/24 08:08 Tamsulosin Hcl 0.4 Mg Cap.Er.24h PO 0.4 mg DAILY BERYL Administration Plan Plan: 1. Acute Hypoxic Respiratory Failure in setting of CHF and COPD exacerbation - wean oxygen as tolerated, nebs, steroids 2. CHFpEF Exacerbation - Diuresing well, decrease lasix to 20 mg BID, I&O, daily weight, 1800mL fluid restriction, last echo 04/30 EF 58% 3. COPD Exacerbation - rocephin, azith, steroids, nebs 4. Afib RVR - increased atenolol to BID from bedtime yesterday HR still above 100 - increase to 50 mg BID 5. HTN - chronic, continue home medications 6. HLD - chronic, continue home medications 7. Thyroid disease - chronic, continue home medications 8. R hip pain - external rotation and shortening, xrays and CT scan negative for fracture or dislocation, moderate arthritis noted, steroid taper ordered DVT Prophylaxis: Tonya Review Statement Review Statement: I have personally discussed and reviewed the patient's visit/currently labs/imaging/decision making with Dr. Bay, my supervising attending. Greater that 50 minutes spent with patient, 50% of the time spent with this patient was devoted to counseling and coordination of care.
--- NOTE | 2024-10-07 13:06 | RS.OTINEVL ---
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 Level of function Prior to this admission, the patient could do the following:: Independent Selfcare, Independent ADL's, Independent Ambulation and Drive Current Level of Function: Partially Dependent Comments: Pt is weak and is having a difficult time taking care of himself. Current Equipment Used at Home: Straight cane; Has a walker but does not use it Pain Assessment Pain Pain Score: 0 Side: right Pain Location Body Site: Hip Pain Aggravating Factors: Changing Position Pain Alleviating Factors: Medication Interventions Objective Patient Orientation: Person Current Interventions: Oxygen (2 Liters) Observation: Pt reports 9/10 pain in the bed and then when he stands he did not act like it was hurting that bad. He did not limp. Interventions ROM Right Upper Extremity AROM: Slight limitation (Reports the right shoulder is weak and has been hurt before.) Left Upper Extremity AROM: WFL's Strength Right Upper Extremity: Mild Weakness Left Upper Extremity: Mild Weakness Sensation Right Upper Extremity: Intact/Normal Left Upper Extremity: Intact/Normal ADL Skills Self Feeding Self Feeding: Independent Grooming Grooming: Min Assist Grooming Set-up: Standing Bathing Bathing UE: Independent Bathing LE: Min Assist Bathing Set-up: Shower Dressing Dressing UE: Independent Dressing LE: Mod Assist Toilet Management Toilet Hygiene: Min Assist Toilet Clothing Management: Min Assist Functional Mobility Bed Mobility Rolling R/L: Independent Supine to Sit: Supervision Transfers Sit to Stand: CGA Stand to Sit: CGA Stand Pivot Transfers: CGA Ambulation Weight Bearing Status: FWB Assistive Device Used: Rolling Walker Assistance needed with Ambulation: CGA Safety Awareness Safety Awareness: Poor WALDO INDEX SCORE: . Additional Treatment Performed Time with patient Length of Evaluation: 17 Total treatment time: 17 Activities Do you enjoy playing games?: Yes Would you be interested in leaving your room for activities?: Yes Would you enjoy group activities?: Yes Do you have difficulty with your vision?: No Patient Interests:: Watching Television Patient Education Patient Education: Home Exercise Program and Education of Plan of Care Teaching Recipient: Patient Teaching Methods: Discussion and Demonstration Assessment Problem List:: Decreased level of function, Requires training/education, Decreased safety/Risk of falls and Weakness Rehab Potential: Good Further Therapy Indicated?: Yes Evaluation Complexity: HISTORY: Medium, EXAM OF BODY SYSTEMS: Medium and CLINICAL DECISION MAKING: Medium Patient's Goal(s): To be able to go to [facility]. Short Term Goals Goals GOAL 1: Pt to be I with LE dressing. Goal to be met by: 10/11/24 GOAL 2: Pt to be able to stand at sink and brush his teeth with SBA. Goal to be met by: 10/12/24 GOAL 3: Pt to be I with toilet management. Goal to be met by: 10/12/24 GOAL 4: Pt to be CGA for toilet transfers. Goal to be met by: 10/12/24 GOAL 5: Pt to increase RUE strength to 4+/5. Goal to be met by: 10/12/24 [facility] Goals GOAL 1: Pt to be I with ADLs. Goal to be met by: 10/13/24 GOAL 2: Pt to increase RUE strength to 5/5. Goal to be met by: 10/13/24 Plan Plan of Care: Therapeutic EX, Therapeutic Activity and Self-Care/Home Management Frequency of Treatment: 1-2 X day, as tolerated Duration of Treatment: 5-6 days. Anticipated Discharge Destination: [facility] Treatment Diagnosis (ICD 10 Codes): Z74.1 Need for assistance with personal care., R53.1 Weakness, R26.81 . Has the Physician been added for Co-signature?: Yes
--- NOTE | 2024-10-07 13:08 | RS.PTINEVL ---
Subjective Patient information Date of Evaluation: 10/07/24 Date of Arrival on Unit: 10/05/24 Admitted From:: Home Diagnosis: COPD, CHF exacerbation Living Arrangement Comments: Lives with son Home Environment: House, Stairs (few) and Rail Medical History: Hypertension, COPD, Diabetes, CHF and Arthritis Medical History Comments:: aortic stenosis, anxiety, depression, hypothyroidism, anemia, [place] LATEX ALLERGY?: No Surgical History: Lumbar Spine Surgical History Comments:: cystectomy, coronary stent Medications: see chart Subjective Information/ Patient Comments:: pt states that he is still having pain in R hip. Level of function Prior to this admission, the patient could do the following:: Independent Selfcare, Independent ADL's, Independent Ambulation and Drive Abilities prior to this admission: pt amb with cane at home independently, short distances Current Level of Function: Partially Dependent Current Equipment Used at Home: cane and rwx Pain Assessement Location Right Hip: Description: Tightness, Sharp and Aching Intensity: 9 Pain Behavior: Facial Grimacing Pain Aggravating Factors: Changing Position, Exercise/Activity and Standing Pain Alleviating Factors: Medication Interventions Objective Patient Orientation: Person, Place and Situation Current Interventions: IV's, Oxygen (2 liters) and Telemetry Observation: pt with excess dry skin noted on sheets when pt stood to walk. Range of Motion ROM Right Upper Extremity AROM: WFL's Left Upper Extremity AROM: WFL's Right Lower Extremity AROM: WFL's Left Lower Extremity AROM: WFL's Muscle Strength Muscle Strength Right Upper Extremity: Mild Weakness (shld 4-/5, elbow flex/ext 4/5) Left Upper Extremity: Mild Weakness (grossly 4/5 ) Right Lower Extremity: Mild Weakness (hip flex 4-/5, knee flex/ext 4/5, ankle DF/PF 4/5) Left Lower Extremity: Mild Weakness (hip flex 4-/5, knee flex/ext 4/5, ankle DF/PF 4/5) Sensation Sensation Right Upper Extremity: Intact/Normal Left Upper Extremity: Intact/Normal Right Lower Extremity: Intact/Normal Left Lower Extremity: Intact/Normal Palpation Palpation Findings: Tenderness (R hip) Balance Sitting Balance and Reactions Static Sitting Balance: Good (good-) Dynamic Sitting Balance: Fair Standing Balance and Reactions Static Standing Balance: Poor Dynamic Standing Balance: Poor Standing Equilibrium Reactions: Delayed Left and Delayed Right Standing Protective Reactions: Delayed Left and Delayed Right Functional Mobility Bed Mobility Rolling R/L: Min Assist and 1 person assist Scooting: Min Assist and 1 person assist Supine to Sit: CGA, Min Assist and 1 person assist Transfers Sit to Stand: CGA Stand to Sit: CGA Safety Awareness Safety Awareness: Poor WALDO INDEX SCORE: n/a Ambulation Ambulation Assistive Device Used: Rolling Walker Orthotic/Prosthetic Device: No Distance: 62ft Assistance needed with Ambulation: CGA and 1 person assist Quality of Ambulation: pt amb with O2 2liters, flexed posture, decreased step length, deviation from path. Gait Deviations: Forward posture, Short stride and Deviates from path Factors Affecting Ambulation: Decreased Balance, Pain, Weakness, Decreased Coordination, Decreased Safety and Limited Endurance Treatment time Units charged Gait trainin Time with patient Length of Evaluation: 18 Total treatment time: 27 Patient Education Education Patient Education: Activity Modification and Education of Plan of Care Teaching Recipient: Patient Teaching Methods: Discussion Comments: discussion regarding POC and dc planning, (pt is planning to dc to [facility]) Assessment Assessment Problem List:: Decreased level of function, Requires training/education, Decreased safety/Risk of falls, Weakness, Pain limits previous level of function and Cognitive status limits abilities Rehab Potential: Good Further Therapy Indicated?: Yes Candidate for Swing Bed for Therapy Services?: Feel pt is not a candidate for swing bed due to pt wants to dc to [facility] and may require more nursing home care. Evaluation Complexity: HISTORY: Medium, EXAM OF BODY SYSTEMS: Medium, CLINICAL PRESENTATION: Medium and CLINICAL DECISION MAKING: Medium Patient's Goal(s): Be able to walk better. Short Term Goals GOAL #1: pt demonstrate rolling and scooting to edge of bed independently. Goal to be met by: 10/10/24 GOAL #2: Transfer sup to/from sit SBA Goal to be met by: 10/10/24 GOAL #3: Transfer sit to/from stand SBA Goal to be met by: 10/10/24 GOAL #4: pt amb with rwx 100ft with CGA x 1 Goal to be met by: 10/10/24 GOAL #5: Improve BLE strength 4 to 4+/5 Goal to be met by: 10/10/24 [facility] Goals GOAL #1: pt transfer sup to/from sit to/from stand SBA to independent Goal to be met by: 10/12/24 GOAL #2: pt amb functional household distances with rwx SBA Goal to be met by: 10/12/24 GOAL #3: Improve dyn stand balance fair- Goal to be met by: 10/12/24 Plan Plan of Care: Therapeutic EX and Therapeutic Activity Other:: gait training Frequency of Treatment: 1-2 X day, as tolerated Duration of Treatment: 5 days Anticipated Discharge Destination: [facility] Treatment Diagnosis (ICD 10 Codes): Difficulty walking R 26.2 impaired balance R 26.81 weakness M62.81 Has the Physician been added for Co-signature?: Yes
[2024-10-07] MEDS: LASIX IVP SCH (16:58)
[2024-10-08 05:51] LABS: BASOPHILS % (AUTO) 0.1 % (0.0-3.0); EOSINOPHILS % (AUTO) 0.1 % (0.0-7.0); HEMATOCRIT 31.3 % (42.0-52.0); HEMOGLOBIN 9.8 g/dl (14.0-18.0); IMMATURE GRANULOCYTE # (AUTO) 0.1 (0.0-1.0); IMMATURE GRANULOCYTE % (AUTO) 0.6 % (0.0-5.0); LYMPHOCYTES # (AUTO) 1.4 K/uL (0.60-3.4); LYMPHOCYTES % (AUTO) 8.6 (10.0-50.0); MEAN CORPUSCULAR HEMOGLOBIN 28.8 pg (27.0-31.0); MEAN CORPUSCULAR HGB CONC 31.3 (31.8-35.4); MEAN CORPUSCULAR VOLUME 92.1 fl (80.0-94.0); MONOCYTES # (AUTO) 1.1 K/uL (0.4-2.0); NEUTROPHILS # (AUTO) 13.2 K/ul (2.0-6.9); NEUTROPHILS % (AUTO) 83.6 % (42.2-75.2); PLATELET COUNT 329 10^3/uL (140-440); RDW COEFFICIENT OF VARIATION 19.8 % (11.6-14.8); WHITE BLOOD COUNT 15.84 K/ul (4.2-10.2)
[2024-10-08] MEDS: PREDNISONE PO SCH (08:35)
[2024-10-08 09:11] LABS: ALBUMIN 3.2 g/dL (3.5-5.0); BILIRUBIN,TOTAL 1.1 mg/dL (0.2-1.3); CALCIUM 8.9 mg/dL (8.4-10.2); CREATININE 1.9 mg/dL (0.60-1.10); POTASSIUM 4.5 mmol/L (3.5-5.1); TOTAL PROTEIN 6.5 g/dL (6.3-8.2)
--- NOTE | 2024-10-08 10:09 | PCM.PROG ---
Date/Time Seen Date Seen by Provider: 10/08/24 Time Seen by Provider: 08:45 Provider Provider[facility] Chief Complaint Chief Complaint: COPD EXACERBATION, CHF Subjective Subjective: "feeling like hell" this morning. Continued nausea and now generalized lower abdominal pain. Significant tenderness. HR still running in 100s. Objective Appearance: Positive No Apparent Distress, Alert and Oriented x3, Ill-Appearing and Thin Chest/Lungs: Positive Symmetrical With Equal Breath Sounds, Rhonci (to lung bases) and Good Air Movement all 4 Lung [place] Heart: Positive RRR and Pulses Normal GI/: Positive Soft, Nontender, Bowel Sounds Normal and No Distention Musculoskeletal: Positive Not Examined Neurological: Positive Sensation Intact, Motor intact, Alert, Oriented and Other (generalized weakness) Vital Signs Vital Signs: Vital Signs: Last 24 Hours 10/07/24 13:00 10/07/24 14:00 10/07/24 14:00 Temperature 97.4 F L Temperature Source Temporal Artery Scan Pulse Rate 98 Pulse Rate [Apical] Respiratory Rate 20 Blood Pressure 148/98 H Blood Pressure Mean 114 Blood Pressure Location Left Arm Blood Pressure Position Supine O2 Sat by Pulse Oximetry 95 97 Oxygen Delivery Method Nasal Cannula Nasal Cannula Oxygen Flow Rate 2 2 Weight Telemetry Type Remote Telemetry Telemetry Monitoring Continues Irregular Telemetry Rate (Approximate) 90-100 BPM Telemetry Heart Rate EKG QRS Interval 0.08 Telemetry Strip Reading afib 10/07/24 18:00 10/07/24 19:00 10/07/24 19:43 Temperature 97.6 F Temperature Source Temporal Artery Scan Pulse Rate 106 H Pulse Rate [Apical] Respiratory Rate 14 Blood Pressure 130/63 Blood Pressure Mean 85 Blood Pressure Location Left Arm Blood Pressure Position O2 Sat by Pulse Oximetry 96 97 Oxygen Delivery Method Nasal Cannula Nasal Cannula Oxygen Flow Rate 2 1 Weight Telemetry Type Remote Telemetry Telemetry Monitoring Continues Irregular Telemetry Rate (Approximate) 80-90 BPM Telemetry Heart Rate EKG QRS Interval 0.07 Telemetry Strip Reading ATRIAL FIB 10/07/24 20:00 10/07/24 22:00 10/08/24 01:00 Temperature 97.6 F Temperature Source Temporal Artery Scan Pulse Rate 100 Pulse Rate [Apical] Respiratory Rate 18 Blood Pressure 157/76 H Blood Pressure Mean 103 Blood Pressure Location Right Arm Blood Pressure Position Supine O2 Sat by Pulse Oximetry 96 Oxygen Delivery Method Nasal Cannula Room Air Oxygen Flow Rate 2 Weight Telemetry Type Remote Telemetry Telemetry Monitoring Continues Irregular Telemetry Rate (Approximate) 100-110 BPM Telemetry Heart Rate EKG QRS Interval 0.07 Telemetry Strip Reading AFIB 10/08/24 05:24 10/08/24 05:28 10/08/24 05:50 Temperature 97.3 F L Temperature Source Temporal Artery Scan Pulse Rate 105 H Pulse Rate [Apical] Respiratory Rate 22 H Blood Pressure 167/96 H Blood Pressure Mean 119 Blood Pressure Location Left Arm Blood Pressure Position Sitting O2 Sat by Pulse Oximetry 93 L Oxygen Delivery Method Room Air Room Air Oxygen Flow Rate Weight 69.9 kg Telemetry Type Telemetry Monitoring Irregular Telemetry Rate (Approximate) Telemetry Heart Rate EKG QRS Interval Telemetry Strip Reading 10/08/24 07:00 10/08/24 08:00 Temperature Temperature Source Pulse Rate Pulse Rate [Apical] 113 H Respiratory Rate 16 Blood Pressure Blood Pressure Mean Blood Pressure Location Blood Pressure Position O2 Sat by Pulse Oximetry Oxygen Delivery Method Nasal Cannula Oxygen Flow Rate Weight Telemetry Type Remote Telemetry Telemetry Monitoring Continues Irregular Telemetry Rate (Approximate) 100-110 BPM Telemetry Heart Rate 113 H EKG QRS Interval 0.08 Telemetry Strip Reading afib rvr Lab Results Lab Results: Lab Results: Last 24 Hours 10/08/24 05:19 WBC 15.84 H RBC 3.40 L Hgb 9.8 L Hct 31.3 L MCV 92.1 MCH 28.8 MCHC 31.3 L RDW Coeff of Sri 19.8 H Plt Count 329 Immature Gran % (Auto) 0.6 Neut % (Auto) 83.6 H Lymph % (Auto) 8.6 L [place] % (Auto) 7.0 Eos % (Auto) 0.1 Baso % (Auto) 0.1 Neut # (Auto) 13.2 H Lymph # (Auto) 1.4 [place] # (Auto) 1.1 Eos # (Auto) 0.0 Baso # (Auto) 0.0 Immature Gran # (Auto) 0.1 Sodium 137.0 Potassium 4.50 Chloride 98.0 Carbon Dioxide 32.0 H Anion Gap 11.50 BUN 41.0 H Creatinine 1.90 H Estimated GFR (MDRD) 34.00 BUN/Creatinine Ratio 21.57 Glucose 138.0 H Calcium 8.90 Total Bilirubin 1.10 AST 30.0 D ALT 11.0 Alkaline Phosphatase 60.0 Total Protein 6.50 Albumin 3.20 L Globulin 3.30 Albumin/Globulin Ratio 0.96 Additional Comments Additional Comments: I have independently reviewed and interpreted the labs/EKGs/imaging ordered during this hospital stay. I have reviewed outside records that are available in our EMR that pertain to medical stay including imaging/notes/labs from previous visits. Active Medications Active Medications: Medications Generic Name Dose Route Start Last Admin Trade Name Freq PRN Reason Stop Dose Admin Acetaminophen 650 mg 10/05/24 09:42 10/08/24 08:32 Acetaminophen 325 Mg Tablet PO 650 mg Q4H PRN Administration Mild Pain Albuterol/Ipratropium 3 ml 10/05/24 10:00 10/08/24 05:25 Ipratropium/Albuterol Vial.Neb NEB 3 ml RTQ4H BERYL Administration Allopurinol 100 mg 10/05/24 13:30 10/08/24 08:34 Allopurinol 100 Mg Tablet PO 100 mg DAILY BERYL Administration Amlodipine Besylate 5 mg 10/05/24 13:30 10/08/24 08:33 Amlodipine Besylate 5 Mg Tablet PO 5 mg DAILY BERYL Administration Apixaban 2.5 mg 10/05/24 14:00 10/08/24 08:33 Apixaban 5 Mg Tab PO 2.5 mg BID BERYL Administration Aspirin 81 mg 10/05/24 13:30 10/08/24 08:34 Aspirin 81 Mg Tablet. PO 81 mg DAILYWM2 BERYL Administration Atenolol 50 mg 10/07/24 09:00 10/08/24 08:33 Atenolol 25 Mg Tablet PO 50 mg BID BERYL Administration Atorvastatin Calcium 40 mg 10/05/24 21:00 10/07/24 20:55 Atorvastatin Calcium 20 Mg Tablet PO 40 mg BEDTIME BERYL Administration Budesonide/Formoterol Fumarate 2 puff 10/05/24 13:30 10/08/24 08:35 Budesonide/Formoterol Fumarate 160/4.5 Mcg Inhaler IH 2 puff BID BERYL Administration Fish Oil 1,000 mg 10/05/24 13:30 10/08/24 08:34 [place]-3/Dha/Epa/Fish Oil 1,000 Mg Capsule PO 1,000 mg DAILY BERYL Administration Furosemide 20 mg 10/07/24 17:00 10/08/24 05:26 Furosemide Inj 20 Mg/2 Ml Vial IVP 20 mg BIDAC2 BERYL Administration CEFTRIAXONE/D5W 1 GM PREMIX 1 gm in 50 mls @ 100 mls/hr 10/05/24 10:00 10/08/24 08:35 Rocephin 1 Gm/50 Ml D5w IV 10/09/24 09:59 100 mls/hr DAILY EBRYL Administration Ketorolac Tromethamine 15 mg 10/06/24 17:47 10/08/24 05:26 Ketorolac Tromethamine 15 Mg/Ml Vial IVP 10/10/24 17:47 15 mg Q6HR PRN Administration Pain Levothyroxine Sodium 112 mcg 10/05/24 13:30 10/08/24 05:26 Levothyroxine Sodium 112 Mcg Tablet PO 112 mcg QDAC2 BERYL Administration Loratadine 10 mg 10/05/24 13:30 10/08/24 08:33 Loratadine 10 Mg Tablet PO 10 mg DAILY BERYL Administration Losartan Potassium 50 mg 10/05/24 14:00 10/08/24 08:34 Losartan Potassium 100 Mg Tablet PO 50 mg BID BERYL Administration Ondansetron HCl 4 mg 10/06/24 14:37 10/07/24 08:14 Ondansetron Hcl/Pf 4 Mg/2 Ml Sdv IVP 4 mg Q6H PRN Administration Nausea / Vomiting Pantoprazole Sodium 40 mg 10/05/24 17:00 10/08/24 05:26 Pantoprazole Sodium 40 Mg Tablet. PO 40 mg BIDAC2 BERYL Administration Prednisone 5 mg 10/08/24 07:30 10/08/24 08:35 Prednisone 5 Mg Tablet PO 10/09/24 07:29 5 mg DAILYWM2 BERYL Administration Sodium Chloride 1 syr 10/05/24 21:00 10/08/24 05:26 0.9% Sodium Chloride 10 Ml Disp.Syrin IVF 1 syr Q8HR BERYL Administration Sodium Chloride 1 syr 10/05/24 17:18 10/05/24 17:19 0.9% Sodium Chloride 10 Ml Disp.Syrin IVF 1 syr PRN PRN Administration Maintain IV Patency Tamsulosin HCl 0.4 mg 10/05/24 13:30 10/08/24 08:34 Tamsulosin Hcl 0.4 Mg Cap.Er.24h PO 0.4 mg DAILY BERYL Administration Plan Plan: 1. Acute Hypoxic Respiratory Failure in setting of CHF and COPD exacerbation - wean oxygen as tolerated, nebs, steroids 2. CHFpEF Exacerbation - Diuresing well, decreased lasix to 20 mg BID yesterday, I&O, daily weight, 1800mL fluid restriction, last echo 04/30 EF 58% 3. COPD Exacerbation - rocephin, azith, steroids, nebs 4. Afib RVR - switching to metoprolol due to no response with atenolol 5. HTN - chronic, continue home medications 6. HLD - chronic, continue home medications 7. Thyroid disease - chronic, continue home medications 8. R hip pain - external rotation and shortening, xrays and CT scan negative for fracture or dislocation, moderate arthritis noted, steroid taper ordered 9. Abdominal pain/nausea - CT scan negative for acute findings, will add reglan ACHS DVT Prophylaxis: Eliquis Review Statement Review Statement: I have personally discussed and reviewed the patient's visit/currently labs/imaging/decision making with Dr. Bay, my supervising attending. Greater that 50 minutes spent with patient, 50% of the time spent with this patient was devoted to counseling and coordination of care.
--- NOTE | 2024-10-08 10:15 | CT ---
EXAM: CT ABDOMEN PELVIS WITHOUT INTRAVENOUS CONTRAST 10/08/2024. SAGITTAL AND CORONAL REFORMATTED OB TAINED HISTORY: Abdominal pain COMPARISON: 05/02/2024 FINDINGS: Bibasilar atelectasis. Small right and trace left pleural effusion. The liver shows no acute abnormality. Gallbladder has been removed. The adrenal glands and kidneys show no acute abnormality. There is no hydronephrosis. Unremarkable urinary bladder. Bilateral benign-appearing renal cysts. Severe atherosclerotic vascular disease. The spleen and pancreas show no acute abnormality. There is no evidence of bowel obstruction. No free air. No free fluid. No acute osseous abnormality. IMPRESSION: 1. Bibasilar atelectasis. 2. Trace left and small right pleural effusion. 3. Severe atherosclerotic vascular disease 4. Status post cholecystectomy. 5. Bilateral benign-appearing renal cysts. 6. No urinary or bowel obstruction and normal appendix. 7. No acute inflammatory process identified within the abdomen or pelvis within the limitation of a noncontrast enhanced examination. All CT scans are performed using dose optimization techniques as appropriate to the performed exam an d include at least one of the following: Automated exposure control, adjustment of the mA and/or kV according t o size, and the use of iterative reconstruction technique.
[2024-10-08] MEDS: LOPRESSOR PO SCH (11:34)
[2024-10-08] MEDS: REGLAN PO SCH (11:34)
[2024-10-08 20:50] VITALS: TEMP 97.9
[2024-10-09 05:17] VITALS: BP 137/84; RESP 16
[2024-10-09 05:32] LABS: BASOPHILS % (AUTO) 0.2 % (0.0-3.0); EOSINOPHILS # (AUTO) 0.1 K/ul (0.0-0.7); EOSINOPHILS % (AUTO) 0.4 % (0.0-7.0); HEMATOCRIT 30.5 % (42.0-52.0); HEMOGLOBIN 9.3 g/dl (14.0-18.0); IMMATURE GRANULOCYTE # (AUTO) 0.1 (0.0-1.0); IMMATURE GRANULOCYTE % (AUTO) 0.6 % (0.0-5.0); LYMPHOCYTES # (AUTO) 1.8 K/uL (0.60-3.4); MEAN CORPUSCULAR HEMOGLOBIN 28.3 pg (27.0-31.0); MEAN CORPUSCULAR HGB CONC 30.5 (31.8-35.4); MEAN CORPUSCULAR VOLUME 92.7 fl (80.0-94.0); MONOCYTES # (AUTO) 1.1 K/uL (0.4-2.0); MONOCYTES % (AUTO) 8.2 (0-10); NEUTROPHILS # (AUTO) 10.5 K/ul (2.0-6.9); NEUTROPHILS % (AUTO) 77.6 % (42.2-75.2); PLATELET COUNT 319 10^3/uL (140-440); RDW COEFFICIENT OF VARIATION 19.6 % (11.6-14.8); RED BLOOD COUNT 3.29 10^6/ul (4.70-6.10); WHITE BLOOD COUNT 13.52 K/ul (4.2-10.2)
[2024-10-09 05:45] LABS: ALANINE AMINOTRANSFERASE 11.7 U/L (0-50); ALBUMIN 3.03 g/dL (3.5-5.0); ALKALINE PHOSPHATASE 56.5 U/L (56-119); BILIRUBIN,TOTAL 0.57 mg/dL (0.2-1.3); CALCIUM 8.6 mg/dL (8.4-10.2); CARBON DIOXIDE 37.6 mmol/L (22-30.0); CHLORIDE 94.3 mmol/L (98-107); CREATININE 1.79 mg/dL (0.60-1.10); POTASSIUM 3.78 mmol/L (3.5-5.1); SODIUM 136.4 mmol/L (134.5-145); TOTAL PROTEIN 6.19 g/dL (6.3-8.2)
--- NOTE | 2024-10-09 09:32 | DCSUM ---
Admission Date Admission Date: 10/05/24 Discharge Date Discharge Date: 10/09/24 Admission Diagnosis Admission Diagnosis: 1. CHFpEF Exacerbation 2. COPD Exacerbation Discharge Diagnosis Discharge Diagnosis: 1. Acute Hypoxic Respiratory Failure in setting of CHF and COPD exacerbation - Resolved 2. CHFpEF Exacerbation - Improved 3. COPD Exacerbation - Improved, completed course of medications 4. Afib RVR - Resolved, switched to metoprolol from atenolol 5. HTN - chronic, stable 6. HLD - chronic, stable 7. Thyroid disease - chronic, stable 8. R hip pain - Resolved 9. Abdominal pain/nausea - Resolved Hospital Provider Hospital Provider: MENDY NOEL, [facility] Primary Care Physician Primary Care Physician: JAZZMINE MACIEL Summary of History and Physical Summary of History and Physical: 84 yo male with pmh of COPD, CHF, HTN, and thyroid disease presented to the ER from home for numbness in bilateral feet. Upon arrival to the ER, he was tachypneic and mildly tachycardic at 102. No neurological deficits noted. CT head negative. Patient states he has been more short of breath since yesterday and has a productive cough with white sputum. ER labs at baseline except BNP of >[id number]. He was given nebs, steroids, and lasix. Admitted to med/surg observation. Hospital Course Subjective: 10/05/24 Treated CHFpEF exacerbation with lasix 20 mg Q8H, 1800 fluid restriction. Started on rocephin and azith for copd exacerbation. Held off on steroids due to no need for oxygen at that time. 10/06/24 Patient went into Afib RVR this am. HR up to 170s, with nausea and palpitations present. HR improved to 110s-120s. Vagal maneuvers completed and given atenolol 25 mg PO and improved to 90s. Symptoms resolved. States SOB Patient started complaining of R hip pain yesterday afternoon and has continued to worsen. Denies any falls that he can think of. No bruising present. Lasix continued. Abx continued. R hip pain - external rotation and shortening, xrays ordered and negative, CT then ordered and negative. Arthritis noted. Steroid taper ordered. 10/07/24 Nauseated and reports shortness of breath this am. HR above 100 still. Atenolol increased to bid from just bedtime yesterday and HR still running again in the 100s. Increased to 50 mg BID. Now requiring 2L of oxygen. Added nebs. Continues to diurese well. Decreased lasix to 20 mg bid Continue antibiotics 10/08/24 "feeling like hell" this morning. Continued nausea and now generalized lower abdominal pain. Significant tenderness. HR still running in 100s. Stopped atenolol and switched to metoprolol 25 mg bid. HR improved and nausea resolved. Ordered Ct abd pelv w/o. No acute findings. Added reglan to regimen. Still on 2L of oxygen Continues to diurese well. Completes steroids and antibiotics today. 10/09/24 Weaned to RA. Feeling so much better today. HR under 100. No further nausea. Requesting d/c home. Sent with rx for metoprolol. Discussed medication changes with patient and son. Follow-up with PCP this week. Return Zio patch when due. Appearance: Pleasant, No Apparent Distress and Alert HEENT: MMM, Supple and No JVD CVS: No Murmur Abdomen: Soft, Non-Tender and No Distention Respiratory: No Dyspnea Extremities: No Edema Vital Signs: Most Recent Vital Signs Temperature 97.9 F 10/09/24 05:16 Temperature Source Temporal Artery Scan 10/09/24 05:16 Temperature Source Infrared 10/05/24 05:27 Pulse Rate 92 10/09/24 05:16 Respiratory Rate 16 10/09/24 05:16 Blood Pressure 137/84 10/09/24 05:16 Blood Pressure Mean 101 10/09/24 05:16 Blood Pressure Left Arm 169/82 10/05/24 09:26 Blood Pressure Location Right Arm 10/09/24 05:16 Blood Pressure Position Supine 10/09/24 05:16 O2 Sat by Pulse Oximetry 96 10/09/24 05:16 Oxygen Delivery Method Room Air 10/09/24 06:00 Oxygen Flow Rate 3 10/08/24 10:17 Height 6 ft 1 in 10/06/24 09:25 Weight 70 kg 10/09/24 05:16 Telemetry Type Remote Telemetry 10/09/24 07:00 Telemetry Monitoring Continues 10/09/24 07:00 Irregular Telemetry Rate (Approximate) 80-90 BPM 10/09/24 07:00 Telemetry Heart Rate 86 10/09/24 07:00 Telemetry SPO2 94 06/14/24 12:38 EKG QRS Interval 0.06 10/09/24 07:00 Telemetry Strip Reading afib at controlled rate 10/09/24 07:00 Imaging: EXAM: SINGLE VIEW OF THE CHEST. FINDINGS: Heart is mildly enlarged. No consolidation. No pleural fluid and no pneumothorax. No acute osseous abnormalities. Atherosclerotic vascular calcifications. Impression: Mild cardiomegaly without acute disease in the chest EXAM: CT ABDOMEN PELVIS WITHOUT INTRAVENOUS CONTRAST 10/08/2024. SAGITTAL AND CORONAL REFORMATTED OBTAINED FINDINGS: Bibasilar atelectasis. Small right and trace left pleural effusion. The liver shows no acute abnormality. Gallbladder has been removed. The adrenal glands and kidneys show no acute abnormality. There is no hydronephrosis. Unremarkable urinary bladder. Bilateral benign-appearing renal cysts. Severe atherosclerotic vascular disease. The spleen and pancreas show no acute abnormality. There is no evidence of bowel obstruction. No free air. No free fluid. No acute osseous abnormality. IMPRESSION: 1. Bibasilar atelectasis. 2. Trace left and small right pleural effusion. 3. Severe atherosclerotic vascular disease 4. Status post cholecystectomy. 5. Bilateral benign-appearing renal cysts. 6. No urinary or bowel obstruction and normal appendix. 7. No acute inflammatory process identified within the abdomen or pelvis within the limitation of a noncontrast enhanced examination. EXAM: CT RIGHT HIP WITHOUT CONTRAST. FINDINGS: No fracture or dislocation. Osseous demineralization. Moderate right hip osteoarthritis. Heterotopic ossification at the right common hamstrings origin. No suspicious lytic or sclerotic osseous lesions. Overall muscle bulk is within normal limits for age. No adenopathy. Atherosclerotic vascular calcifications. IMPRESSION: 1. No acute fracture or dislocation. Given the reported history and the degree of osseous demineralization if there is high clinical suspicion for occult fracture further evaluation with MRI could be obtained. 2. Moderate right hip osteoarthritis. EXAM: RADIOGRAPHS, RIGHT HIP AND PELVIS FINDINGS: Bone mineralization normal. No fracture or dislocation. There is moderate right hip joint space narrowing with mild marginal osteophyte formation. No erosions are seen. Extensive atherosclerotic calcifications present. No localized soft tissue abnormality detected. IMPRESSION: Osteoarthritis without acute fracture. Lab Results Last 24 Hours: 10/09/24 04:50 WBC 13.52 H RBC 3.29 L Hgb 9.3 L Hct 30.5 L MCV 92.7 MCH 28.3 MCHC 30.5 L RDW Coeff of Sri 19.6 H Plt Count 319 Immature Gran % (Auto) 0.6 Neut % (Auto) 77.6 H Lymph % (Auto) 13.0 [place] % (Auto) 8.2 Eos % (Auto) 0.4 Baso % (Auto) 0.2 Neut # (Auto) 10.5 H Lymph # (Auto) 1.8 [place] # (Auto) 1.1 Eos # (Auto) 0.1 Baso # (Auto) 0.0 Immature Gran # (Auto) 0.1 Sodium 136.4 Potassium 3.78 Chloride 94.3 L Carbon Dioxide 37.6 H Anion Gap 8.28 BUN 45.0 H Creatinine 1.79 H Estimated GFR (MDRD) 36.00 BUN/Creatinine Ratio 25.13 Glucose 139.0 H Calcium 8.60 Total Bilirubin 0.57 AST 27.0 ALT 11.7 Alkaline Phosphatase 56.5 Total Protein 6.19 L Albumin 3.03 L Globulin 3.16 Albumin/Globulin Ratio 0.95 Discharge Instructions Discharge Planning: Discharge Planning > 40 minutes If patient is discharged with left ventricular systolic dysfunction: no Discharged with a beta perry? [] If no, why not? [] Discharged with an carlos/arb? [] If no, why not? [] Diagnosis: Afib, COPD, CHF Diet: Regular Activity: as tolerated Follow-up with PCP this week Medications: [facility] in [place] - Metoprolol 25 mg twice a day Discharge Medications: RX At Discharge metoprolol tartrate 25 mg tablet 25 mg PO BID #60 tabs 10/09/24 [Rx] Discharge Plan Discharge Discharge Orders: Discharge Patient (ONCE); Ordered 10/09/24 Ordered By: PINEDA MACIEL Activity Restrictions/Additional Instructions: Diagnosis: Afib, COPD, CHF Diet: Regular Activity: as tolerated Follow-up with PCP this week Medications: [facility] in [place] - Metoprolol 25 mg twice a day Instructions: Heart Failure (GEN), A-fib (Atrial Fibrillation) (GEN), COPD (Chronic Obstructive Pulmonary Disease) (GEN) Care Plan Goals: Problem: Fluid Volume Excess Goal: Maintain adequate fluid volume Instructions: Maintain optimal head of bed placement Monitor respiratory status Monitor for edema Monitor hydration status Patient Disposition: HOME WITH FAMILY CARE Prescriptions: New metoprolol tartrate 25 mg Tablet 25 mg PO BID Qty: 60 0RF Continued furosemide 20 mg tablet 20 mg PO DAILY omega [id number]-fish oil [Fish Oil] 300-1,000 mg capsule 1 cap PO DAILY aspirin [Lor Low Dose Aspirin] 81 mg tablet,delayed release (DR/EC) 81 mg PO DAILY levothyroxine [Euthyrox] 112 mcg tablet 112 mcg PO DAILY loratadine [Allerclear] 10 mg tablet 10 mg PO DAILY atorvastatin 80 mg tablet 40 mg PO BEDTIME allopurinol 100 mg tablet 100 mg PO DAILY amlodipine 10 mg tablet 5 mg PO DAILY magnesium oxide 400 mg magnesium capsule 400 mg PO DAILY nitroglycerin 0.4 mg tablet, sublingual 0.4 mg sublingual Q5-15M PRN (Reason: chest pain) Rx Instructions: do not exceed 3 doses per episode albuterol sulfate 90 mcg/actuation aerosol powdr breath activated 2 inh inhalation Q4-6H PRN (Reason: shortness of breath or wheezing) Qty: 1 0RF losartan [Cozaar] 100 mg tablet 50 mg PO BID calcitriol 0.25 mcg capsule 0.25 mcg PO .COMPLEX Rx Instructions: 0.25 mcg orally 3 times per week; pantoprazole 40 mg tablet,delayed release (DR/EC) 40 mg PO BID tamsulosin [Flomax] 0.4 mg capsule 0.4 mg PO DAILY fluticasone propion-salmeterol [Advair Diskus] 250-50 mcg/dose blister with device 1 inh inhalation BID Eliquis 2.5 mg tablet 2.5 mg PO BID Discontinued albuterol sulfate 90 mcg/actuation aerosol powdr breath activated 2 inh inhalation Q6H PRN (Reason: shortness of breath or wheezing) Qty: 1 2RF mirtazapine 15 mg tablet 15 mg PO BEDTIME memantine 10 mg tablet 10 mg PO 2XD metoprolol succinate 50 mg Tablet Extended Release 24 Hr 50 mg PO BID Qty: 60 0RF alprazolam [Xanax] 0.25 mg tablet 0.25 mg PO BID PRN (Reason: anxiety) Qty: 20 0RF atenolol 25 mg tablet 25 mg PO .HS Did you review [place] [employer] for ALL controlled substances?: No Discussed opioids are addictive and Narcan is available by prescription or from pharmacy.: No Condition: Fair
[2024-10-09 10:00] VITALS: PULSE 86
== END 2024-10-09 11:58 | disposition home or self-care (01) | DRG 291 ==
LOC: ED 05:21 → MEDSURG B 05:21
PROVIDERS: ADMIT Hospitalist; ATTEND Nurse Practitioner Family

== ENCOUNTER 2025-03-28 13:27 | Inpatient (IN) ==
[2025-03-28] MEDS ORDERED: DUONEB NEB STA (13:33)
--- NOTE | 2025-03-28 13:51 | ED.PDOC ---
General [facility] ED Provider: Dr. ARCHIE MCKEON MD Chief Complaint: Shortness of Air Stated Complaint: Patient is a 84-year-old male that reported to the emergency department with low back pain. Patient stated that his low back pain has been going on for approximately 1 week. Patient stated that it progressively got worse. Patient stated that he is taken some medication but does not know what it is for his back pain. Patient stated that he woke up this morning and was not able to get out of bed due to the right sided low back pain. Patient stated that he does have radiculopathy down the right side to his right hip. Patient stated that he has not had any recent trauma or falls. Patient reports his pain at a 10 out of 10 currently. Patient stated that it is dull and aching in nature. EMS stated the patient had some shortness of breath on the way to the emergency department so they gave him a DuoNeb treatment. Patient states that he gets short of breath when he has a lot of pain like he does currently in his low back. Patient denied any fever, saddle anesthesia, bowel or bladder incontinence or any other red flag signs for cord compromise. Patient states that sitting up and ambulation makes the lower back pain worse. Patient states that nothing recently has made the pain better. Patient denies any other acute symptoms not currently mentioned in the HPI. Patient's vital signs are stable. Patient's GCS is 15. Time Seen by Provider: 03/28/25 13:33 Mode of Arrival: Ambulance Information Source: Patient and EMT Primary Care Provider: JAZZMINE MACIEL Nursing and Triage Documentation Reviewed and Agree: Yes Opioid Naive vs. Tolerant What is Opioid Naive?: *Opioid Naive implies the patient is not already taking opioids or not chronically receiving opioids on a daily basis. *PRN dosing is not "usually" associated with tolerance. *Patients are at higher risk of over-sedation and aspiration. What is Opioid Tolerant?: *Opioid Tolerance implies less than the expected response to an opioid. *Acquired tolerance is defined by the patient taking 60mg of oral morphine daily (or equianalgesic dose of another opioid) for 1 week or more. *Often associated with chronic pain. *May take more than usual dose to achieve desired pain control. Review of Systems Review Of Systems Constitutional: Reports No symptoms Eyes: Reports No symptoms Ears, Nose, Mouth, Throat: Reports No symptoms Respiratory: Reports Shortness of Breath Cardiac: Reports No symptoms GI: Reports No symptoms : Reports No symptoms Musculoskeletal: Reports Back pain (Right-sided low back pain.) Skin: Reports No symptoms Neurological: Reports Other (Radiculopathy of right side low back pain down the right lower extremity.) Endocrine: Reports No symptoms Hematologic/Lymphatic: Reports No symptoms All Other Systems: Reviewed and Negative [facility] Medical History Edema R60.9 - Edema, unspecified (ICD-10) History of aortic stenosis Z86.79 - Personal history of other diseases of the circulatory system (ICD- 10) Bilateral carotid artery disease I77.9 - Disorder of arteries and arterioles, unspecified (ICD-10) Depression F32.A - Depression, unspecified (ICD-10) Anxiety F41.9 - Anxiety disorder, unspecified (ICD-10) COPD (chronic obstructive pulmonary disease) J44.9 - Chronic obstructive pulmonary disease, unspecified (ICD-10) Hyperlipidemia E78.5 - Hyperlipidemia, unspecified (ICD-10) Anemia D64.9 - Anemia, unspecified (ICD-10) Hypothyroidism E03.9 - Hypothyroidism, unspecified (ICD-10) Diabetes E11.9 - Type 2 diabetes mellitus without complications (ICD-10) Myocardial infarct March 2023 I21.9 - Acute myocardial infarction, unspecified (ICD-10) Hypertension I10 - Essential (primary) hypertension (ICD-10) Family History FATHER CAD (coronary artery disease) Mother CAD (coronary artery disease) Social History Smoking and tobacco status: Current every day smoker Tobacco type: cigarettes Smoking packs per day: 1 Smoking cigarettes per day: 20.0 Tobacco: How many years used: 70 Quit status: considering quitting Alcohol intake: former Details: Quit 8 years ago Substance use type: does not use Special elio needs: No Agree to transfusion: Yes Adopted: No Caregiver/support person: Yes Foster care: No Household members: children Housing: house Marital status: W / Lives independently: Yes Daycare: no daycare Number of children: 1 Financial difficulty paying for basics: not very hard service: Yes skilled nursing: No Current occupational status: retired History of recent travel: No Do you think of yourself as: straight/heterosexual Current gender identity: male Seatbelt use: always Helmet use: Yes Drives intoxicated or rides with intoxicated race car driver: No Surgical History History of coronary artery stent placement Z95.5 - Presence of coronary angioplasty implant and graft (ICD-10) Status post spinal disc removal Z98.890 - Other specified postprocedural states (ICD-10) 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 - Acquired absence of other parts of urinary tract (ICD-10) Physical Exam Physical Exam Appearance: Reports Well-appearing and Well-nourished Ill-appearing: None Pain Distress: Moderate Eyes: Reports KINSEY, EOMI and Conjunctiva clear ENT: Reports Nose normal and Oropharynx normal Neck: Supple Respiratory: Reports Airway patent, Breath sounds clear, Breath sounds equal and Respirations nonlabored Cardiovascular: Reports RRR, No rub, No murmur and Tachycardia (Patient's heart rate is 102 bpm apical pulse.) GI/: Reports Soft, Nontender, No masses, Bowel sounds normal and No Organomegaly Musculoskeletal: Reports Normal strength, No edema, No calf tenderness, Limited ROM (Limited range of motion to flexion, extension and left sided lateral sidebending and left-sided lateral rotation due to discomfort in the right low back.) and Other (Patient had tenderness to palpation of the right paraspinal lumbar muscles. No step-offs were noted on physical exam. Straight leg raise test positive on the right side and negative on the left side.) Skin: Reports Warm, Dry and Normal color Neurological: Reports Sensation intact, Motor intact, Reflexes intact, Cranial nerves intact, Alert and Oriented Psychiatric: Reports Affect appropriate and Mood appropriate Physician Progress Note Physician Progress Note: Patient is a 84-year-old male that reported to the emergency department with low back pain. Patient stated that his low back pain has been going on for approximately 1 week. Patient stated that it progressively got worse. Patient stated that he is taken some medication but does not know what it is for his back pain. Patient stated that he woke up this morning and was not able to get out of bed due to the right sided low back pain. Patient stated that he does have radiculopathy down the right side to his right hip. Patient stated that he has not had any recent trauma or falls. Patient reports his pain at a 10 out of 10 currently. Patient stated that it is dull and aching in nature. EMS stated the patient had some shortness of breath on the way to the emergency department so they gave him a DuoNeb treatment. Patient states that he gets short of breath when he has a lot of pain like he does currently in his low back. Patient denied any fever, saddle anesthesia, bowel or bladder incontinence or any other red flag signs for cord compromise. Patient states that sitting up and ambulation makes the lower back pain worse. Patient states that nothing recently has made the pain better. Patient denies any other acute symptoms not currently mentioned in the HPI. Patient's vital signs are stable. Patient's GCS is 15. -Will order CT of the lumbar spine due to patient's right sided radiculopathy and increased low back pain. -Will give the patient IV morphine 2 mg once for pain. -Will give the patient IV methylprednisolone 125 mg for patient's low back pain and shortness of breath. Patient does not need a DuoNeb at this time as his lungs are clear to auscultation. And patient's breathing is nonlabored. -Will order baseline labs. -Will get an EKG and a chest x-ray. -EKG shows atrial fibrillation with RVR. Ventricular rates of 108 bpm. No acute STEMI noted. EKG interpreted by ER physician. -Patient's current heart rate is 95 bpm. Will give the patient IV amiodarone 150 mg once and then start patient on an IV amiodarone drip at 0.5 mg/min. -CXR shows no acute cardiopulmonary disease. This radiograph was interpreted by the ER physician and over read by radiology. -Patient's BNP is 11,000. Will give IV Lasix 40 mg. - CT of the lumbar spine showed 1. Stable appearance of the lumbar spine without displaced fracture, subluxation or compression deformity. 2. Similar moderate multilevel degenerative disc and endplate changes, most noted at L5-S1. 3. Similar moderate degenerative facet arthropathy. 4. Suggestion of mild- moderate spinal stenosis at the L3-4 and L4-5 levels due to degenerative changes. 5. Calcified atherosclerosis, renal cortical cysts and diverticulosis without evidence of diverticulitis. -([id number]) spoke to hospitalist, and, who is agreed to accept this patient for mild CHF exacerbated by atrial fibrillation with RVR. Discussed patient's current treatment and low back pain with low back pain workup and intractable back pain. She has agreed to accept this patient for admission. Patient's vital signs are stable at time of admission. Course Course 03/28/25 13:49 03/28/25 13:49 Orders, Labs, Meds: Lab Review 03/28/25 13:49 WBC 11.51 H RBC 2.86 L Hgb 8.0 L Hct 25.4 L MCV 88.8 MCH 28.0 MCHC 31.5 L RDW Coeff of Sri 22.0 H Plt Count 273 Immature Gran % (Auto) 0.3 Neut % (Auto) 69.4 Lymph % (Auto) 17.3 Bennett % (Auto) 11.0 H Eos % (Auto) 1.7 Baso % (Auto) 0.3 Neut # (Auto) 8.0 H Lymph # (Auto) 2.0 Bennett # (Auto) 1.3 Eos # (Auto) 0.2 Baso # (Auto) 0.0 Immature Gran # (Auto) 0.0 Plt Morphology Comment Poikilocytosis 2+ Anisocytosis 1+ Macrocytosis 1+ Ovalocytes 1+ Helmet Cells 1+ Redig Cells 1+ Sodium 139.6 Potassium 3.92 Chloride 103.5 Carbon Dioxide 26.2 Anion Gap 13.82 BUN 32.6 H Creatinine 1.18 H Estimated GFR (MDRD) 59.00 BUN/Creatinine Ratio 27.62 Glucose 128.7 H Calcium 8.94 Magnesium 1.56 L Total Bilirubin 0.99 AST 58.2 ALT 21.8 Alkaline Phosphatase 80.9 Troponin I 0.025 NT-Pro-B Natriuret Pep 56497 H Total Protein 6.80 Albumin 3.18 L Globulin 3.62 Albumin/Globulin Ratio 0.87 Orders Category Date Time Status EKG-(ED ONLY) Stat CARDIO 03/28/25 13:33 Completed NPO REMINDER: IMAGING ONCE CARE 03/28/25 15:07 Ordered CBC W/ AUTO DIFF Stat LAB 03/28/25 13:49 Completed CMP [COMPREHENSIVE METABOLIC PANEL] Stat LAB 03/28/25 13:49 Completed MAGNESIUM Stat LAB 03/28/25 13:49 Completed NT-PROBNP(ED) Stat LAB 03/28/25 13:49 Completed OCCULT BLOOD, STOOL Stat LAB 03/28/25 14:14 Uncollected RBC MORPHOLOGY Stat LAB 03/28/25 13:49 Completed TROPONIN I Stat LAB 03/28/25 13:49 Completed Amiodarone HCl [Cordarone] Meds 03/28/25 14:46 Discontinued 150 mg IVP ONCE STA Amiodarone HCl [Cordarone] 900 mg Meds 03/28/25 15:00 Active Sodium Chloride 0.9% [Sodium Chloride] 500 ml IV TITRATION Diltiazem HCl [Cardizem Inj] Meds 03/28/25 14:09 Discontinued 20 mg IVP ONCE STA Furosemide [Lasix] Meds 03/28/25 14:21 Discontinued 40 mg IVP ONCE STA Methylprednisolone Sod Succ/Pf [Solu-Medrol 125 mg] Meds 03/28/25 13:33 Discontinued 125 mg IVP ONCE ONE Morphine Sulfate [Morphine 2 mg/ml Syringe] Meds 03/28/25 13:51 Discontinued 2 mg IVP ONCE ONE CHEST, 1V AP ONLY Stat RADS 03/28/25 13:[address] ABDOMEN/PELVIS W CONTRAST Stat RADS 03/28/25 15:[address] LUMBAR SPINE W/O CONTRAST Stat RADS 03/28/25 13:45 Completed Medications Generic Name Dose Route Start Last Admin Trade Name Freq PRN Reason Stop Dose Admin Amiodarone HCl 900 mg/ Sodium 518 mls @ 17.267 mls/hr 03/28/25 15:00 Chloride IV TITRATION BERYL Protocol 0.5 MG/MIN Discontinued Medications Generic Name Dose Route Start Last Admin Trade Name Freq PRN Reason Stop Dose Admin Amiodarone HCl 150 mg 03/28/25 14:46 03/28/25 15:04 Amiodarone 150 Mg/3 Ml Sdv IVP 03/28/25 14:47 150 mg ONCE STA Administration Diltiazem HCl 20 mg 03/28/25 14:09 Diltiazem Hcl Inj 25 Mg/5 Ml Vial IVP 03/28/25 14:10 ONCE STA Furosemide 40 mg 03/28/25 14:21 03/28/25 14:45 Furosemide Inj 40 Mg/4 Ml Vial IVP 03/28/25 14:22 40 mg ONCE STA Administration Methylprednisolone Sodium Succinate 125 mg 03/28/25 13:33 03/28/25 14:22 Methylprednisolone Sod Succ/Pf 125 Mg/2 Ml Vial IVP 03/28/25 13:34 125 mg ONCE ONE Administration Morphine Sulfate 2 mg 03/28/25 13:51 03/28/25 14:22 Morphine Sulfate 2 Mg/Ml Syringe IVP 03/28/25 13:52 2 mg ONCE ONE Administration Vital Signs: Temp Pulse Resp BP Pulse Ox 03/28/25 13:31 98.8 F 102 H 31 H 177/83 H 95 Discharge Plan Discharge Patient Disposition: ADMITTED INPATIENT Discharge Problem: Atrial fibrillation with RVR Low back pain Qualifiers: Chronicity: acute Back pain laterality: right Sciatica presence: with sciatica Sciatica laterality: sciatica of right side Qualified Code(s): M54.41 - Lumbago with sciatica, right side COPD (chronic obstructive pulmonary disease) Qualifiers: COPD type: unspecified COPD Qualified Code(s): J44.9 - Chronic obstructive pulmonary disease, unspecified Anemia Qualifiers: Anemia type: unspecified type Qualified Code(s): D64.9 - Anemia, unspecified CKD (chronic kidney disease) Qualifiers: Chronic kidney disease stage: unspecified stage Qualified Code(s): N18.9 - Chronic kidney disease, unspecified CHF (congestive heart failure) Qualifiers: Heart failure type: unspecified Heart failure chronicity: chronic Qualified Code(s): I50.9 - Heart failure, unspecified Degenerative disc disease, lumbar Qualifiers: Disc-related pain type: discogenic back pain and lower extremity pain Qualified Code(s): M51.362 - Other intervertebral disc degeneration, lumbar region with discogenic back pain and lower extremity pain Spinal stenosis Qualifiers: Spinal region: lumbar Neurogenic claudication status: unspecified Qualified Code(s): M48.061 - Spinal stenosis, lumbar region without neurogenic claudication Did you review [place] [employer] [employer] for ALL controlled substances?: Not Applicable ED Provider: ARCHIE MCKEON Condition: Stable
[2025-03-28 13:56] LABS: IMMATURE GRANULOCYTE # (AUTO) 0.0 (0.0-1.0); IMMATURE GRANULOCYTE % (AUTO) 0.3 % (0.0-5.0); RDW COEFFICIENT OF VARIATION 22.0 % (11.6-14.8)
[2025-03-28 14:05] LABS: CREATININE 1.18 mg/dL (0.60-1.10)
--- NOTE | 2025-03-28 14:15 | DI ---
EXAM: CHEST RADIOGRAPH TECHNIQUE: Single frontal chest radiograph. HISTORY: Shortness of breath. COMPARISON: 02/19/2025 FINDINGS: Of the patient's neck partially obscures both apices. EKG leads project over the chest. No pulmonary infiltrate is identified. No pleural effusion or pneumothorax is seen. Heart size is normal. No acute displaced rib fractures are identified. Old, healed left lower rib fractures anterolaterally. IMPRESSION: 1. No acute findings in the chest.
[2025-03-28] MEDS: MORPHINE 2 MG/ML SYRINGE IVP ONE (14:22)
[2025-03-28] MEDS: SOLU-MEDROL 125 MG IVP ONE (14:22)
[2025-03-28] MEDS: LASIX IVP STA (14:45)
--- NOTE | 2025-03-28 15:03 | CT ---
EXAMINATION: CT LUMBAR SPINE WITHOUT CONTRAST HISTORY: Right side sciatica. Back pain. TECHNIQUE: Computed tomography (CT) of the lumbar spine was performed according to standard protocol without intravenous contrast. Contrast Dose: None. CT Dose Reduction Techniques Performed: Yes. COMPARISON: CT abdomen and pelvis 02/22/2025 FINDINGS: Similar moderate multilevel degenerative disc and endplate changes, most severe at L5-S1. No compression deformity or subluxation. Normal facet articulation bilaterally without pars defect. Moderate degenerative facet arthropathy stable chronic bone changes at L1. Pedicles and bony canal appear maintained. No acute displaced fracture or destructive lesion. Suggestion of mild-moderate spinal stenosis at L3-4 and L4-5 due to degenerative changes. Vascular calcifications. Renal cysts. Uncomplicated diverticular changes. Paravertebral soft tissues otherwise appear unremarkable. IMPRESSION: 1. Stable appearance of the lumbar spine without displaced fracture, subluxation or compression deformity. 2. Similar moderate multilevel degenerative disc and endplate changes, most noted at L5-S1. 3. Similar moderate degenerative facet arthropathy. 4. Suggestion of mild-moderate spinal stenosis at the L3-4 and L4-5 levels due to degenerative changes. 5. Calcified atherosclerosis, renal cortical cysts and diverticulosis without evidence of diverticulitis. All CT scans are performed using dose optimization techniques as appropriate to the performed exam and include at least one of the following: Automated exposure control, adjustment of the mA and/or kV according to size, and the use of iterative reconstruction technique.
[2025-03-28] MEDS: CORDARONE IVP STA (15:04)
[2025-03-28] MEDS: SODIUM CHLORIDE IV SCH (15:10)
[2025-03-28] MEDS: CORDARONE IV SCH (15:10)
--- NOTE | 2025-03-28 15:47 | PCM ---
Date of Service Date Seen by Provider: 03/28/25 Time Seen by Provider: 15:48 Admit Day/Time Admission Date: 03/28/25 Reason for Admission Chief Complaint: AFIB RVR, MID CHF, BACK PAIN Hospital Provider Hospital Provider: HORACIO PEDRAZA PA-C, [facility] Primary Care Physician Primary Care Physician: JAZZMINE MACIEL History of Present Illness History of Present Illness: 84 yo male smoker (70+ pack year) with h/o HTN, HLP, atrial fibrillation, PAD, hypothyroidism called EMS due to low back pain radiating into hips and down right leg, symptoms worse over past week. Patient was also reportedly dyspneic and received a DuoNeb en route by EMS. On arrival to ER he was noted to be in AFib with RVR and thought mildly volume overloaded with NTproBNP >11,000. He was started on amiodarone drip for rate control and given dose of IV Lasix with good response. Patient reports his breathing is improved now. 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 Patient lives with his son. States he usually is independent with self-care, but in past week is only able to walk a few feet due to the pain. Feels like right leg will give out, but denies any recent falls. CT lumbar spine in ER demonstrates mild to moderate degenerative changes in the lumbosacral spine. CXR negative for acute finding. LVEF 60% with LVH on echo 05/05/2024. Aortoiliac atherosclerosis noted on prior CT abdomen/pelvis from 05/02/24; it is a non- contrasted study. Patient denies any history of workup for PAD or prior vascular intervention. He follows at the [facility] for primary care. Case Discussed With Case Discussed With: Patient's case was discussed with the ER Physicians, Dr. Ruiz [facility] Medical History (Updated 03/28/25 @ 16:03 by HORACIO PEDRAZA PA-C) Edema R60.9 - Edema, unspecified (ICD-10) History of aortic stenosis Z86.79 - Personal history of other diseases of the circulatory system (ICD- 10) Bilateral carotid artery disease I77.9 - Disorder of arteries and arterioles, unspecified (ICD-10) Depression F32.A - Depression, unspecified (ICD-10) Anxiety F41.9 - Anxiety disorder, unspecified (ICD-10) COPD (chronic obstructive pulmonary disease) J44.9 - Chronic obstructive pulmonary disease, unspecified (ICD-10) Hyperlipidemia E78.5 - Hyperlipidemia, unspecified (ICD-10) Anemia D64.9 - Anemia, unspecified (ICD-10) Hypothyroidism E03.9 - Hypothyroidism, unspecified (ICD-10) Diabetes E11.9 - Type 2 diabetes mellitus without complications (ICD-10) Myocardial infarct March 2023 I21.9 - Acute myocardial infarction, unspecified (ICD-10) Hypertension I10 - Essential (primary) hypertension (ICD-10) Surgical History (Updated 03/28/25 @ 15:54 by HORACIO PEDRAZA PA-C) History of cholecystectomy Z90.49 - Acquired absence of other specified parts of digestive tract (ICD-10) History of coronary artery stent placement Z95.5 - Presence of coronary angioplasty implant and graft (ICD-10) Status post spinal disc removal Z98.890 - Other specified postprocedural states (ICD-10) 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 - Acquired absence of other parts of urinary tract (ICD-10) Family History FATHER CAD (coronary artery disease) Mother CAD (coronary artery disease) Social History Smoking and tobacco status: Current every day smoker Tobacco type: cigarettes Smoking packs per day: 1 Smoking cigarettes per day: 20.0 Tobacco: How many years used: 70 Quit status: considering quitting Alcohol intake: former Details: Quit 8 years ago Substance use type: does not use Special elio needs: No Agree to transfusion: Yes Adopted: No Caregiver/support person: Yes Foster care: No Household members: children Housing: house Marital status: W / Lives independently: Yes Daycare: no daycare Number of children: 1 Financial difficulty paying for basics: not very hard service: Yes care home: No Current occupational status: retired History of recent travel: No Do you think of yourself as: straight/heterosexual Current gender identity: male Seatbelt use: always Helmet use: Yes Drives intoxicated or rides with intoxicated 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 Allergies Allergies Allergy/AdvReac Type Severity Reaction Status Date / Time No Known Allergies Allergy Verified 03/28/25 14:38 Current Medications Home Medications Amiodarone HCl 900 mg/ Sodium (Chloride) 518 mls @ 17.267 mls/hr IV TITRATION BERYL; Protocol Last Admin: 03/28/25 15:10 Dose: 0.5 mg/min, 17.3 mls/hr allopurinol 100 mg tablet 100 mg PO DAILY 06/25/23 [History Confirmed 03/28/25] amlodipine 10 mg tablet 5 mg PO DAILY 06/25/23 [History Confirmed 03/28/25] aspirin 81 mg tablet,delayed release (Lor Low Dose Aspirin) 81 mg PO DAILY 06/25/23 [History Confirmed 03/28/25] atorvastatin 80 mg tablet 40 mg PO BEDTIME 06/25/23 [History Confirmed 03/28/25] levothyroxine 112 mcg tablet (Euthyrox) 112 mcg PO DAILY 06/25/23 [History Confirmed 03/28/25] magnesium oxide 400 mg PO DAILY 06/25/23 [History Confirmed 03/28/25] furosemide 20 mg tablet 20 mg PO DAILY 08/27/23 [History Confirmed 03/28/25] apixaban 2.5 mg tablet (Eliquis) 2.5 mg PO BID 10/05/24 [History Confirmed 03/28/25] calcitriol 0.25 mcg capsule 0.25 mcg PO .COMPLEX 10/05/24 [History Confirmed 03/28/25] pantoprazole 40 mg tablet,delayed release 40 mg PO BID 10/05/24 [History Confirmed 03/28/25] ipratropium 0.5 mg-albuterol 3 mg (2.5 mg base)/3 mL nebulization soln 3 ml NEB RTQ6H PRN Shortness Of Breath Or Wheezing #180 mL 02/24/25 [Rx Confirmed 03/28/25] atenolol 25 mg tablet 25 mg PO DAILY 03/28/25 [History Confirmed 03/28/25] fluticasone 100 mcg-salmeterol 50 mcg/dose blistr powdr for inhalation (Wixela Inhub) 1 inh inhalation BID 03/28/25 [History Confirmed 03/28/25] tamsulosin 0.4 mg capsule (Flomax) 0.4 mg PO BEDTIME 03/28/25 [History Confirmed 03/28/25] Opioid Naive vs. Tolerant Does Patient Take Opioids?: No Is Patient Opioid Naive?: Yes What is Opioid Naive?: *Opioid Naive implies the patient is not already taking opioids or not chronically receiving opioids on a daily basis. *PRN dosing is not "usually" associated with tolerance. *Patients are at higher risk of over-sedation and aspiration. Is Patient Opioid Tolerant?: No What is Opioid Tolerant?: *Opioid Tolerance implies less than the expected response to an opioid. *Acquired tolerance is defined by the patient taking 60mg of oral morphine daily (or equianalgesic dose of another opioid) for 1 week or more. *Often associated with chronic pain. *May take more than usual dose to achieve desired pain control. Review of Systems Constitutional: Reports Weakness; Denies Fever Eyes: Reports No symptoms Ears: Reports No symptoms Nose: Reports No symptoms Mouth: Reports No symptoms Throat: Reports No symptoms Cardiovascular: Reports Claudication Pain and Palpitations; Denies Chest pain, Chest Pressure or Orthopnea Respiratory: Reports Shortness of air Gastrointestinal: Reports No symptoms Genitourinary: Reports Incontinent Bladder Musculoskeletal: Reports Back Pain and Other (pain in bilateral hips and down right leg with ambulating) Dermatologic: Reports Skin Changes (bilateral lower legs) Neurological: Reports Problems with walking; Denies Syncope Physical examination Most Recent Vital Signs: Most Recent Vital Signs Temperature 98.8 F 03/28/25 13:31 Temperature Source Temporal Artery Scan 03/28/25 13:31 Pulse Rate 98 03/28/25 15:10 Respiratory Rate 31 H 03/28/25 13:31 Blood Pressure 177/83 H 03/28/25 13:31 O2 Sat by Pulse Oximetry 95 03/28/25 13:31 Height 6 ft 1 in 03/28/25 13:31 Weight 70.6 kg 03/28/25 13:31 Telemetry Heart Rate 130 H 02/24/25 07:00 Telemetry SPO2 95 02/24/25 01:00 Appearance: Positive Ill-Appearing and Thin Skin: Positive Rashes (bilateral lower legs erythema, loss of hair, changes consistent with PAD) HEENT: Positive Normocephalic and Atraumatic Neck: Positive Supple; Negative JVD Chest/Lungs: Positive Clear to Auscultation Bilaterally Heart: Positive Irregular Rhythm; Negative Pulses Normal or Murmur GI/: Positive Soft, Nontender, Bowel Sounds Normal and No Distention Extremities: Positive Other (Atrophy and chronic PAD skin changes feet and bilateral lower legs. Pulses left DP 0, AT 0, right DP 0 AT +2); Negative Amputations, Deformities or Intact Peripheral Pulses Neurological: Positive Sensation Intact and Motor intact Psychiatric: Positive Oriented x4 Labs This Visit Labs This Visit: Labs This Visit 03/28/25 13:49 WBC 11.51 H RBC 2.86 L Hgb 8.0 L Hct 25.4 L MCV 88.8 MCH 28.0 MCHC 31.5 L RDW Coeff of Sri 22.0 H Plt Count 273 Immature Gran % (Auto) 0.3 Neut % (Auto) 69.4 Lymph % (Auto) 17.3 [place] % (Auto) 11.0 H Eos % (Auto) 1.7 Baso % (Auto) 0.3 Neut # (Auto) 8.0 H Lymph # (Auto) 2.0 [place] # (Auto) 1.3 Eos # (Auto) 0.2 Baso # (Auto) 0.0 Immature Gran # (Auto) 0.0 Plt Morphology Comment Poikilocytosis 2+ Anisocytosis 1+ Macrocytosis 1+ Ovalocytes 1+ Helmet Cells 1+ Maurilio Cells 1+ Sodium 139.6 Potassium 3.92 Chloride 103.5 Carbon Dioxide 26.2 Anion Gap 13.82 BUN 32.6 H Creatinine 1.18 H Estimated GFR (MDRD) 59.00 BUN/Creatinine Ratio 27.62 Glucose 128.7 H Calcium 8.94 Magnesium 1.56 L Total Bilirubin 0.99 AST 58.2 ALT 21.8 Alkaline Phosphatase 80.9 Troponin I 0.025 NT-Pro-B Natriuret Pep 49341 H Total Protein 6.80 Albumin 3.18 L Globulin 3.62 Albumin/Globulin Ratio 0.87 Imaging Imaging: EXAM: CHEST RADIOGRAPH TECHNIQUE: Single frontal chest radiograph. HISTORY: Shortness of breath. COMPARISON: 02/19/2025 FINDINGS: Of the patient's neck partially obscures both apices. EKG leads project over the chest. No pulmonary infiltrate is identified. No pleural effusion or pneumothorax is seen. Heart size is normal. No acute displaced rib fractures are identified. Old, healed left lower rib fractures anterolaterally. IMPRESSION: 1. No acute findings in the chest. COMPARISON: CT abdomen and pelvis 02/22/2025 FINDINGS: Similar moderate multilevel degenerative disc and endplate changes, most severe at L5-S1. No compression deformity or subluxation. Normal facet articulation bilaterally without pars defect. Moderate degenerative facet arthropathy stable chronic bone changes at L1. Pedicles and bony canal appear maintained. No acute displaced fracture or destructive lesion. Suggestion of mild-moderate spinal stenosis at L3-4 and L4-5 due to degenerative changes. Vascular calcifications. Renal cysts. Uncomplicated diverticular changes. Paravertebral soft tissues otherwise appear unremarkable. IMPRESSION: 1. Stable appearance of the lumbar spine without displaced fracture, subluxation or compression deformity. 2. Similar moderate multilevel degenerative disc and endplate changes, most noted at L5-S1. 3. Similar moderate degenerative facet arthropathy. 4. Suggestion of mild-moderate spinal stenosis at the L3-4 and L4-5 levels due to degenerative changes. 5. Calcified atherosclerosis, renal cortical cysts and diverticulosis without evidence of diverticulitis. All CT scans are performed using dose optimization techniques as appropriate to the performed exam and include at least one of the following: Automated exposure control, adjustment of the mA and/or kV according to size, and the use of iterative reconstruction technique. Review Statement Review Statement: I have independently reviewed and interpreted the labs/EKGs/imaging that were ordered by the ER provider. I have reviewed all outside records that are available currently in our EMR including imaging/notes/labs from previous visits. Assessment (1) Claudication of both lower extremities: Status: Acute Code(s): I73.9 - Peripheral vascular disease, unspecified SNOMED Code(s): 43101777 (2) Spinal stenosis: Status: Acute Code(s): M48.00 - Spinal stenosis, site unspecified SNOMED Code(s): 35437036 (3) Anemia: Status: Acute Code(s): D64.9 - Anemia, unspecified SNOMED Code(s): 278463589 (4) Atrial fibrillation with RVR: Status: Acute Code(s): I48.91 - Unspecified atrial fibrillation SNOMED Code(s): 158262149465734 (5) COPD (chronic obstructive pulmonary disease): Status: Acute Code(s): J44.9 - Chronic obstructive pulmonary disease, unspecified SNOMED Code(s): 69800759 (6) Low back pain: Status: Acute Code(s): M54.50 - Low back pain, unspecified SNOMED Code(s): 736602403 (7) Degenerative disc disease, lumbar: Status: Acute Code(s): M51.369 - Other intervertebral disc degeneration, lumbar region without mention of lumbar back pain or lower extremity pain SNOMED Code(s): 30782917 (8) CHF (congestive heart failure): Status: Acute Code(s): I50.9 - Heart failure, unspecified SNOMED Code(s): 87893792 (9) CKD (chronic kidney disease): Status: Acute Code(s): N18.9 - Chronic kidney disease, unspecified SNOMED Code(s): 120452141 (10) Weakness: Status: Acute Code(s): R53.1 - Weakness SNOMED Code(s): 22718093 Plan Plan: 1. Dyspnea. Likely due to AFib w RVR and mild volume overload. Improved now with rate control and gentle diuresis. He does not appear volume overloaded on exam or CXR now. Not in COPD exacerbation. Hold off further diuresis. 2. AFib with RVR. Patient only taking atenolol 25 mg daily for rate control at home. He may not tolerate high dose BB with his chronic lung disease, so will continue home dose. Stop amlodipine and start cardizem CD 180 mg daily - titrate to achieve goal HR. Anticoagulated on Eliquis 2.5 mg BID. His weight is 70.6 kg and Cr 1.18 today - will increase Eliquis to 5 mg BID. Monitor renal function closely. No indication for [facility] amiodarone - it can be weaned off after Cardizem given. 3. Mild CHF exacerbation/elevated NTproBNP. Due to RVR. He has underlying diastolic dysfunction. EF 60% on echo 04/2024. Hold off further diuresis as he appears euvolemic now. 4. Back pain radiating into hips and legs. I suspect this is vascular claudication due to severe aortoiliac disease. Continue ASA, Eliquis, statin. Counseled to quit smoking. Will get DILLON with arterial duplex bilaterally. May need close outpatient follow up with vascular specialist. Not currently having rest pain, open wound or tissue loss. 5. 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 6. CKD III. GFR 59 today, Cr 1.18. Appears to be baseline. 7. Normocytic anemia. Hb 8.0. Monitor. Anemia w/u 8. Hypomagnesemia. Replace. Keep Mg >/=2.0 9. HTN. Meds adjusted for rate control. 10. HLD. Statin. 11. COPD. Stable. 12. Weakness/asthenia. PT/OT evals. Discussed swing bed program, but if his vascular disease is as severe as I suspect, he may not be able to meaningfully participate in a swing bed program until that is addressed. DVT Prophylaxis: Eliquis Time Spent: Greater than 80 minutes spent with patient, 50% of the time spent with this patient was devoted to counseling and coordination of care. Advanced Care Planning: [5] minutes spent discussing advance care planning. DNR. Wants to appoint grandson as healthcare POA. Does not want son making any decisions for him. Smoking Cessation: 3-10 minutes spent discussing smoking cessation. Disposition: To be determined. Admit to: Inpatient Discussed Plan of Care with [[place]] Medications Medication Orders: Medications Ordered Category Date Time Status Amiodarone HCl [Cordarone] 900 mg Meds 03/28/25 15:00 Active Sodium Chloride 0.9% [Sodium Chloride] 500 ml IV TITRATION
[2025-03-28 16:42] VITALS: BMI 19.9
[2025-03-28] MEDS ORDERED: DUONEB NEB PRN (16:47)
[2025-03-28] MEDS: CARDIZEM INJ IVP STA (16:51)
[2025-03-28 17:09] LABS: ABSOLUTE RETICS # 0.0362; RETICULOCYTE % 1.28 %; RETICULOCYTE HEMOGLOBIN 29.9
[2025-03-28 17:24] LABS: % IRON SATURATION 21.0 %
[2025-03-28] MEDS: CARDIZEM CD PO SCH (17:49)
[2025-03-28] MEDS: MAGNESIUM SULF 2 G/50 ML BAG 2 GM/50 ML PIGGYBACK IV ONE (17:49)
[2025-03-28] MEDS: ELIQUIS PO SCH (20:36)
[2025-03-28] MEDS: PROTONIX PO SCH (20:37)
[2025-03-28] MEDS: LIPITOR PO SCH (20:37)
[2025-03-28] MEDS: SYMBICORT 160-4.5 MCG INHALER IH SCH (20:37)
[2025-03-28] MEDS: FLOMAX PO SCH (20:37)
[2025-03-28] MEDS ORDERED: [UNRECOGNIZED DRUG - OTHER] IH SCH (21:00)
[2025-03-29] MEDS: SYNTHROID PO SCH (06:07)
[2025-03-29 06:09] LABS: IMMATURE GRANULOCYTE # (AUTO) 0.0 (0.0-1.0); IMMATURE GRANULOCYTE % (AUTO) 0.5 % (0.0-5.0); RDW COEFFICIENT OF VARIATION 22.3 % (11.6-14.8)
[2025-03-29 06:25] LABS: CREATININE 1.21 mg/dL (0.60-1.10)
[2025-03-29] MEDS: ASPIRIN EC PO SCH (09:26)
[2025-03-29] MEDS: TYLENOL PO PRN (09:26)
[2025-03-29] MEDS: PROTONIX PO SCH (09:26)
[2025-03-29] MEDS: TENORMIN PO SCH (09:27)
[2025-03-29] MEDS: MAG-OX PO SCH (09:27)
[2025-03-29] MEDS: ZYLOPRIM PO SCH (09:27)
[2025-03-29] MEDS: LASIX TAB PO SCH (09:47)
--- NOTE | 2025-03-29 09:47 | PCM.PROG ---
Date/Time Seen Date Seen by Provider: 03/29/25 Time Seen by Provider: 08:45 Provider Provider: Nory Sánchez PA-C, [facility] Chief Complaint Chief Complaint: AFIB RVR, MID CHF, BACK PAIN Subjective Subjective: Patient HR much improved. Amiodarone drip stopped. Pt states he has low back pain. Has been unable to do his ADLs due to it. Awaiting arterial US. Objective Appearance: Positive No Apparent Distress, Alert and Oriented x3 and Thin Chest/Lungs: Positive Clear to Auscultation Bilaterally; Negative Rales, Rhonci or Wheezes Heart: Positive Irregular Rhythm GI/: Positive Soft, Nontender, Bowel Sounds Normal and No Distention Neurological: Positive Cranial Nerves Intact, Alert, Oriented and Other (+generalized weakness ) Additional Findings: - nikolas erythema of lower legs, loss of hair, shiny skin. Vital Signs Vital Signs: Vital Signs: Last 24 Hours 03/28/25 13:31 03/28/25 15:10 03/28/25 16:33 Temperature 98.8 F 97.9 F Temperature Source Temporal Artery Scan Temporal Artery Scan Pulse Rate 102 H 98 92 Pulse Rate [Apical] Respiratory Rate 31 H 20 Blood Pressure 177/83 H Blood Pressure Mean Blood Pressure Left Arm 157/84 Blood Pressure Location Blood Pressure Position Supine O2 Sat by Pulse Oximetry 95 96 Oxygen Delivery Method Room Air Height 6 ft 1 in 6 ft 1 in Weight 70.6 kg 68.6 kg Telemetry Type Telemetry Monitoring Irregular Telemetry Rate (Approximate) Telemetry Heart Rate Telemetry SPO2 EKG QRS Interval Telemetry Strip Reading 03/28/25 16:33 03/28/25 17:26 03/28/25 17:52 Temperature 97.6 F Temperature Source Temporal Artery Scan Pulse Rate 89 Pulse Rate [Apical] 90 Respiratory Rate 22 H Blood Pressure 141/64 H Blood Pressure Mean 89 Blood Pressure Left Arm Blood Pressure Location Right Arm Blood Pressure Position Supine O2 Sat by Pulse Oximetry 99 Oxygen Delivery Method Room Air Room Air Height Weight Telemetry Type Bedside Monitor Telemetry Monitoring Started Irregular Telemetry Rate (Approximate) 100-110 BPM Telemetry Heart Rate Telemetry SPO2 EKG QRS Interval 0.06 Telemetry Strip Reading AFIB RVR W/ PVCS 03/28/25 19:00 03/28/25 19:00 03/28/25 19:04 Temperature Temperature Source Temporal Artery Scan Pulse Rate 81 Pulse Rate [Apical] Respiratory Rate 20 Blood Pressure 149/75 H Blood Pressure Mean 99 Blood Pressure Left Arm Blood Pressure Location Left Arm Blood Pressure Position Supine O2 Sat by Pulse Oximetry 96 99 Oxygen Delivery Method Room Air Room Air Height Weight Telemetry Type Bedside Monitor Telemetry Monitoring Continues Irregular Telemetry Rate (Approximate) Telemetry Heart Rate 85 Telemetry SPO2 99 EKG QRS Interval 0.77 H Telemetry Strip Reading A-FIB WITH PVC' S 03/28/25 20:00 03/28/25 20:00 03/28/25 21:00 Temperature 97.4 F L 97.6 F Temperature Source Temporal Artery Scan Temporal Artery Scan Pulse Rate 91 75 Pulse Rate [Apical] 90 Respiratory Rate 22 H 123 H Blood Pressure 142/64 H 134/71 Blood Pressure Mean 90 92 Blood Pressure Left Arm Blood Pressure Location Left Arm Right Arm Blood Pressure Position Supine Supine O2 Sat by Pulse Oximetry 97 99 Oxygen Delivery Method Room Air Room Air Height Weight Telemetry Type Telemetry Monitoring Irregular Telemetry Rate (Approximate) Telemetry Heart Rate Telemetry SPO2 EKG QRS Interval Telemetry Strip Reading 03/28/25 22:00 03/28/25 23:00 03/29/25 00:00 Temperature 97 F L Temperature Source Temporal Artery Scan Temporal Artery Scan Pulse Rate 75 66 64 Pulse Rate [Apical] Respiratory Rate 19 19 14 Blood Pressure 118/54 L 125/68 121/62 Blood Pressure Mean 75 87 81 Blood Pressure Left Arm Blood Pressure Location Right Arm Right Arm Blood Pressure Position O2 Sat by Pulse Oximetry 98 98 99 Oxygen Delivery Method Room Air Room Air Room Air Height Weight Telemetry Type Telemetry Monitoring Irregular Telemetry Rate (Approximate) Telemetry Heart Rate Telemetry SPO2 EKG QRS Interval Telemetry Strip Reading 03/29/25 01:00 03/29/25 01:00 03/29/25 02:00 Temperature 97.4 F L Temperature Source Temporal Artery Scan Pulse Rate 65 67 Pulse Rate [Apical] Respiratory Rate 20 20 Blood Pressure 149/53 H Blood Pressure Mean 85 Blood Pressure Left Arm Blood Pressure Location Right Arm Blood Pressure Position Supine O2 Sat by Pulse Oximetry 98 100 Oxygen Delivery Method Room Air Room Air Height Weight Telemetry Type Bedside Monitor Telemetry Monitoring Continues Irregular Telemetry Rate (Approximate) Telemetry Heart Rate 71 Telemetry SPO2 98 EKG QRS Interval 0.06 Telemetry Strip Reading A fib with PVC' s 03/29/25 03:00 03/29/25 04:00 03/29/25 05:00 Temperature 97.1 F L Temperature Source Oral Pulse Rate 65 65 62 Pulse Rate [Apical] Respiratory Rate 16 20 18 Blood Pressure 127/49 L 141/67 H 152/53 H Blood Pressure Mean 75 91 86 Blood Pressure Left Arm Blood Pressure Location Right Arm Right Arm Right Arm Blood Pressure Position Supine Supine Supine O2 Sat by Pulse Oximetry 98 99 99 Oxygen Delivery Method Room Air Room Air Room Air Height Weight Telemetry Type Telemetry Monitoring Irregular Telemetry Rate (Approximate) Telemetry Heart Rate Telemetry SPO2 EKG QRS Interval Telemetry Strip Reading 03/29/25 06:00 03/29/25 06:00 03/29/25 07:00 Temperature 97.6 F Temperature Source Oral Pulse Rate 58 L 70 Pulse Rate [Apical] Respiratory Rate 18 24 H Blood Pressure 138/81 128/64 Blood Pressure Mean 100 85 Blood Pressure Left Arm Blood Pressure Location Right Arm Right Arm Blood Pressure Position Supine O2 Sat by Pulse Oximetry 94 L 97 Oxygen Delivery Method Room Air Room Air Room Air Height Weight Telemetry Type Telemetry Monitoring Irregular Telemetry Rate (Approximate) Telemetry Heart Rate Telemetry SPO2 EKG QRS Interval Telemetry Strip Reading 03/29/25 07:00 Temperature Temperature Source Pulse Rate Pulse Rate [Apical] Respiratory Rate Blood Pressure 128/64 Blood Pressure Mean Blood Pressure Left Arm Blood Pressure Location Blood Pressure Position O2 Sat by Pulse Oximetry Oxygen Delivery Method Height Weight Telemetry Type Bedside Monitor Telemetry Monitoring Continues Irregular Telemetry Rate (Approximate) 60-70 BPM Telemetry Heart Rate 65 Telemetry SPO2 EKG QRS Interval 0.07 Telemetry Strip Reading Afib Lab Results Lab Results: Lab Results: Last 24 Hours 03/29/25 03/28/25 06:01 13:49 WBC 8.14 11.51 H RBC 2.77 L 2.86 L Hgb 7.8 L 8.0 L Hct 24.1 L 25.4 L MCV 87.0 88.8 MCH 28.2 28.0 MCHC 32.4 31.5 L RDW Coeff of Sri 22.3 H 22.0 H Plt Count 287 273 Immature Gran % (Auto) 0.5 0.3 Neut % (Auto) 86.1 H 69.4 Lymph % (Auto) 8.8 L 17.3 Borden % (Auto) 4.5 11.0 H Eos % (Auto) 0.0 1.7 Baso % (Auto) 0.1 0.3 Reticulocyte % (Auto) 1.28 Neut # (Auto) 7.0 H 8.0 H Lymph # (Auto) 0.7 2.0 Borden # (Auto) 0.4 1.3 Eos # (Auto) 0.0 0.2 Baso # (Auto) 0.0 0.0 Immature Gran # (Auto) 0.0 0.0 Plt Morphology Comment Poikilocytosis 2+ Anisocytosis 1+ Macrocytosis 1+ Ovalocytes 1+ Helmet Cells 1+ Maurilio Cells 1+ Absolute Retic 0.0362 Retic Hgb Equivalent 29.9 Sodium 139.2 139.6 Potassium 4.07 3.92 Chloride 103.5 103.5 Carbon Dioxide 28.2 26.2 Anion Gap 11.57 13.82 BUN 33.2 H 32.6 H Creatinine 1.21 H 1.18 H Estimated GFR (MDRD) 57.00 59.00 BUN/Creatinine Ratio 27.43 27.62 Glucose 168.1 H 128.7 H Calcium 8.78 8.94 Magnesium 2.14 1.56 L Iron 34.8 L TIBC 164 L % Saturation 21 Total Bilirubin 0.99 AST 58.2 ALT 21.8 Alkaline Phosphatase 80.9 Troponin I 0.025 NT-Pro-B Natriuret Pep 47098 H Total Protein 6.80 Albumin 3.18 L Globulin 3.62 Albumin/Globulin Ratio 0.87 Additional Comments Additional Comments: I have independently reviewed and interpreted the labs/EKGs/imaging ordered during this hospital stay. I have reviewed outside records that are available in our EMR that pertain to medical stay including imaging/notes/labs from previous visits. Active Medications Active Medications: Medications Generic Name Dose Route Start Last Admin Trade Name Freq PRN Reason Stop Dose Admin Acetaminophen 650 mg 03/28/25 16:48 03/29/25 09:26 Acetaminophen 325 Mg Tablet PO 650 mg Q4H PRN Administration Mild Pain Albuterol/Ipratropium 3 ml 03/28/25 16:47 Ipratropium/Albuterol Vial.Neb NEB RTQ6H PRN dyspnea Allopurinol 100 mg 03/29/25 09:00 03/29/25 09:27 Allopurinol 100 Mg Tablet PO 100 mg DAILY BERYL Administration Apixaban 5 mg 03/28/25 21:00 03/29/25 09:27 Apixaban 5 Mg Tab PO 5 mg BID BERYL Administration Aspirin 81 mg 03/29/25 07:30 03/29/25 09:26 Aspirin 81 Mg Tablet. PO 81 mg DAILYWM2 BERYL Administration Atenolol 25 mg 03/29/25 09:00 03/29/25 09:27 Atenolol 25 Mg Tablet PO 25 mg DAILY BERYL Administration Atorvastatin Calcium 40 mg 03/28/25 21:00 03/28/25 20:37 Atorvastatin Calcium 20 Mg Tablet PO 40 mg BEDTIME BERYL Administration Budesonide/Formoterol Fumarate 2 puff 03/28/25 21:00 03/28/25 20:37 Budesonide/Formoterol Fumarate 160/4.5 Mcg Inhaler IH 2 puff BID BERYL Administration Diltiazem HCl 180 mg 03/28/25 16:50 03/28/25 17:49 Diltiazem Hcl 180 Mg Cap.Er.24h PO 180 mg DAILY BERYL Administration Furosemide 20 mg 03/29/25 09:00 Furosemide 20 Mg Tablet PO QDAC2 [facility] Levothyroxine Sodium 112 mcg 03/29/25 06:30 03/29/25 06:07 Levothyroxine Sodium 112 Mcg Tablet PO 112 mcg 0630 BERYL Administration Magnesium Oxide 400 mg 03/29/25 09:00 03/29/25 09:27 Magnesium Oxide 400 Mg Tablet PO 400 mg DAILY BERYL Administration Non-Formulary Medication 0.25 mcg 03/29/25 09:00 Calcitriol PO MoWeFr@0900 [facility] Pantoprazole Sodium 40 mg 03/29/25 07:30 03/29/25 09:26 Pantoprazole Sodium 40 Mg Tablet. PO 40 mg BIDAC2 BERYL Administration Tamsulosin HCl 0.4 mg 03/28/25 21:00 03/28/25 20:37 Tamsulosin Hcl 0.4 Mg Cap.Er.24h PO 0.4 mg BEDTIME BERYL Administration Assessment (1) Claudication of both lower extremities: Status: Acute Code(s): I73.9 - Peripheral vascular disease, unspecified SNOMED Code(s): 68284638 (2) Spinal stenosis: Status: Acute Code(s): M48.00 - Spinal stenosis, site unspecified SNOMED Code(s): 54460622 (3) Anemia: Status: Acute Code(s): D64.9 - Anemia, unspecified SNOMED Code(s): 552228746 (4) Atrial fibrillation with RVR: Status: Acute Code(s): I48.91 - Unspecified atrial fibrillation SNOMED Code(s): 769609874794734 (5) COPD (chronic obstructive pulmonary disease): Status: Acute Code(s): J44.9 - Chronic obstructive pulmonary disease, unspecified SNOMED Code(s): 70307401 (6) Low back pain: Status: Acute Code(s): M54.50 - Low back pain, unspecified SNOMED Code(s): 300533739 (7) Degenerative disc disease, lumbar: Status: Acute Code(s): M51.369 - Other intervertebral disc degeneration, lumbar region without mention of lumbar back pain or lower extremity pain SNOMED Code(s): 40085545 (8) CHF (congestive heart failure): Status: Acute Code(s): I50.9 - Heart failure, unspecified SNOMED Code(s): 51533066 (9) CKD (chronic kidney disease): Status: Acute Code(s): N18.9 - Chronic kidney disease, unspecified SNOMED Code(s): 484319977 (10) Weakness: Status: Acute Code(s): R53.1 - Weakness SNOMED Code(s): 03454173 Plan Plan: 1. AFib with RVR - Patient only taking atenolol 25 mg daily for rate control at home. He may not tolerate high dose BB with his chronic lung disease, so will continue home dose. Stop amlodipine and start cardizem CD 180 mg daily - titrate to achieve goal HR. Anticoagulated on Eliquis 2.5 mg BID. His weight is 70.6 kg and Cr 1.18 today - will increase Eliquis to 5 mg BID. Monitor renal function closely. Amiodarone drip stopped. 2. Dyspnea - Likely due to AFib w RVR and mild volume overload. Improved now with rate control and gentle diuresis. He does not appear volume overloaded on exam or CXR now. Not in COPD exacerbation. Hold off further diuresis. 3. Mild CHF exacerbation/elevated NTproBNP - Due to RVR. He has underlying diastolic dysfunction. EF 60% on echo 04/2024. Hold off further diuresis as he appears euvolemic now. 4. Back pain radiating into hips and legs. - I suspect this is vascular claudication due to severe aortoiliac disease. Continue ASA, Eliquis, statin. Counseled to quit smoking. Will get DILLON with arterial duplex bilaterally. May need close outpatient follow up with vascular specialist. Not currently having rest pain, open wound or tissue loss. 5. 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 6. CKD III. GFR 59 today, Cr 1.18. Appears to be baseline. 7. Normocytic anemia. Hb 8.0. Monitor. Anemia w/u - iron low, start supplement. Occult stool ordered. 8. Hypomagnesemia - resolved 9. HTN. Meds adjusted for rate control. 10. HLD. Statin. 11. COPD. Stable. 12. Weakness/asthenia. PT/OT evals. Discussed swing bed program, but if his vascular disease is as severe as I suspect, he may not be able to meaningfully participate in a swing bed program until that is addressed. DVT Prophylaxis: Tonya Review Statement Review Statement: I have personally discussed and reviewed the patient's visit/currently labs/imaging/decision making with Dr. Bay, my supervising attending. Greater that 50 minutes spent with patient, 50% of the time spent with this patient was devoted to counseling and coordination of care.
--- NOTE | 2025-03-29 10:44 | RS.PTINEVL ---
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 1 week ago Level of function Prior to this admission, the patient could do the following:: Independent Selfcare, Independent ADL's and Independent Ambulation Abilities prior to this admission: amb with rwx Current Level of Function: Partially Dependent Current Equipment Used at Home: Walker, elevated toilet seat, shower chair, Pain Assessement Location lumbar : Description: Tightness, Radiating, Sharp and Aching Intensity: 10 Radiation Location: radiating into R hip to foot Pain Behavior: Moaning, Guarding and Facial Grimacing Pain Aggravating Factors: Changing Position and Exercise/Activity Effects of Pain: wrapped a warm blanket around RLE and lumbar spine Interventions Objective Patient Orientation: Person, Place, Time and Situation Current Interventions: Telemetry Observation: pt with areas of dry skin as well as scratches to B LE. Tightness in R piriformis/hamstrings. pt received gentle stretching to piriformis and hamstrings. Range of Motion ROM Right Upper Extremity AROM: WFL's Left Upper Extremity AROM: WFL's Right Lower Extremity AROM: WFL's Left Lower Extremity AROM: WFL's Muscle Strength Muscle Strength Right Upper Extremity: Mild Weakness (grossly 4-/5) Left Upper Extremity: Mild Weakness (grossly 4-/5) Right Lower Extremity: Mild Weakness (hip flex 4-/5, knee flex/ext 4/5, ankle 4/5 ) Left Lower Extremity: Mild Weakness (hip flex 4-/5, knee flex/ext 4/5, ankle 4/5 ) Sensation Sensation Right Upper Extremity: Intact/Normal Left Upper Extremity: Intact/Normal Right Lower Extremity: Impaired (radicular pain into RLE.) Left Lower Extremity: Intact/Normal Palpation Palpation Findings: Tenderness (lumbar, RLE) and Muscle Guarding Balance Sitting Balance and Reactions Static Sitting Balance: Good Dynamic Sitting Balance: Fair (fair+) Standing Balance and Reactions Static Standing Balance: Poor Dynamic Standing Balance: Poor Functional Mobility Bed Mobility Rolling R/L: CGA Supine to Sit: Min Assist and 1 person assist Transfers Sit to Stand: CGA and 1 person assist Stand to Sit: CGA and 1 person assist Stand Pivot Transfers: CGA and 1 person assist Safety Awareness Safety Awareness: Fair WALDO INDEX SCORE: n/a Ambulation Ambulation Assistive Device Used: Rolling Walker Orthotic/Prosthetic Device: No Distance: 10ft + 12ft Assistance needed with Ambulation: CGA and 1 person assist Gait Deviations: Step-to gait, Forward posture and Short stride Ambulation Comments: pt c/o lightheadedness and required a seated rest period Factors Affecting Ambulation: Decreased Balance, Breathing/O2 Saturation, Pain, Weakness, Decreased Safety and Limited Endurance Treatment time Units charged Gait trainin Time with patient Length of Evaluation: 19 Total treatment time: 29 Patient Education Education Patient Education: Activity Modification and Education of Plan of Care Teaching Recipient: Patient Teaching Methods: Discussion Comments: discussion regarding POC and dc planning Assessment Assessment Problem List:: Decreased level of function, Requires training/education, Decreased safety/Risk of falls, Weakness and Pain limits previous level of function Rehab Potential: Good Further Therapy Indicated?: Yes Candidate for Swing Bed for Therapy Services?: Feel pt may benefit from swing bed vs LTC for rehab. Due to lack of help at home may be more beneficial to have LTC. Evaluation Complexity: HISTORY: Medium, EXAM OF BODY SYSTEMS: Medium, CLINICAL PRESENTATION: Medium and CLINICAL DECISION MAKING: Medium Patient's Goal(s): Decrease lumbar pain Short Term Goals GOAL #1: pt demonstrate rolling and scooting to edge of bed independently Goal to be met by: 04/01/25 GOAL #2: Transfer sup to/from sit CGA Goal to be met by: 04/01/25 GOAL #3: Transfer sit to/from stand SBA Goal to be met by: 04/01/25 GOAL #4: pt amb 75ft with rwx with CGA no LOB Goal to be met by: 04/01/25 GOAL #5: Improve BLE strength 4 to 4+/5 Goal to be met by: 04/01/25 Link Trainer Operator Goals GOAL #1: pt transfer sup to/from sit to/from stand SBA to independent. Goal to be met by: 04/03/25 GOAL #2: pt amb functional household distances with rwx with SBA Goal to be met by: 04/03/25 GOAL #3: Improve dyn stand balance fair - Goal to be met by: 04/03/25 Plan Plan of Care: Therapeutic EX and Therapeutic Activity Other:: gait training Frequency of Treatment: 1-2 X day, as tolerated Duration of Treatment: 5 days Anticipated Discharge Destination: undetermined Treatment Diagnosis (ICD 10 Codes): gait difficulty R 26.2 impaired balance R 26.81 weakness M62.81 low back pain with radiculopathy M54.16 Has the Physician been added for Co-signature?: Yes
[2025-03-29] MEDS: FERROUS SULFATE PO SCH (12:12)
--- NOTE | 2025-03-29 12:50 | RS.OTINEVL ---
Subjective Patient information Date of Evaluation: 03/29/25 Date of Arrival on Unit: 03/28/25 Admitted From:: Home Diagnosis: Weakness, Afib, Decreased (I) of ADLS, Impaired balance. 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 Home Environment: House, Stairs (few) and Rail Medical History: Hypertension, COPD, Diabetes, Arthritis and Vascular Disease (PAD) Medical History Comments:: [place], anxiety, CAD, aortic stenosis, depression, CKD, degenerative disease of lumbar spine LATEX ALLERGY?: No Surgical History: Cholecystectomy Surgical History Comments:: coronary stent, spinal disc removed, cystectomy Medications: see chart Subjective Information/ Patient Comments:: "I live in my son's house with him." "My legs wouldn't work for me to get out of the shower." Level of function Prior to this admission, the patient could do the following:: Independent Selfcare, Independent ADL's, Independent Ambulation and Drive Abilities prior to this admission: Pt drives for the two of them. Pt's son cooks and cleans for them. Pt's son is disabled. Current Level of Function: Partially Dependent Comments: Weakness Current Equipment Used at Home: Walker, elevated toilet seat, shower chair, Pain Assessment Pain Side: bilateral Pain Location Body Site: Back Pain Aggravating Factors: ADL's, Standing and Walking Pain Alleviating Factors: Medication, Position Change and Standing Interventions Objective Patient Orientation: Person Observation: Pt has severe limited RUE shoulder flexion. Pt has WFL of LUE. Strength of LUE is 4+/5. RUE strength is 3-/5. Pt reports he is weak and has a difficult time with standing and dressing his BLE. Interventions ROM Right Upper Extremity AROM: Marked limitation Left Upper Extremity AROM: WFL's Strength Right Upper Extremity: Severe Weakness Left Upper Extremity: Moderate Weakness Sensation Right Upper Extremity: Intact/Normal Left Upper Extremity: Intact/Normal Balance Sitting Balance Static Sitting Balance: Good Dynamic Sitting Balance: Good Standing Balance Static Standing Balance: Poor Dynamic Standing Balance: Poor ADL Skills Self Feeding Self Feeding: Set Up Only Grooming Grooming: Supervision Grooming Set-up: Sitting Bathing Bathing UE: Independent Bathing LE: Min Assist Bathing Set-up: Shower Dressing Dressing UE: Independent Dressing LE: Min Assist Toilet Management Toilet Hygiene: CGA Toilet Clothing Management: Independent Functional Mobility Bed Mobility Rolling R/L: Not Tested Scooting: Not Tested Supine to Sit: Min Assist Sit to Supine: Not Tested Transfers Sit to Stand: Min Assist Stand to Sit: CGA Stand Pivot Transfers: CGA Ambulation Weight Bearing Status: WBAT Assistive Device Used: Rolling Walker Assistance needed with Ambulation: CGA Safety Awareness Safety Awareness: Fair WALDO INDEX SCORE: . Additional Treatment Performed Time with patient Length of Evaluation: 16 Total treatment time: 18 Activities Do you enjoy playing games?: Yes Would you be interested in leaving your room for activities?: Yes Would you enjoy group activities?: Yes Do you have difficulty with your vision?: Yes Patient Interests:: Watching Television and Visiting/Socializing Patient Education Patient Education: Body/Joint mechanics, Home Exercise Program and Education of Plan of Care Teaching Recipient: Patient Teaching Methods: Discussion and Demonstration Assessment Problem List:: Decreased level of function, Requires training/education, Decreased safety/Risk of falls, Weakness and Pain limits previous level of function Rehab Potential: Good Further Therapy Indicated?: Yes Evaluation Complexity: HISTORY: Medium, EXAM OF BODY SYSTEMS: Medium and CLINICAL DECISION MAKING: Medium Patient's Goal(s): To be able to go back home. Short Term Goals Goals GOAL 1: Pt to be Independent with dressing. Goal to be met by: 04/03/25 GOAL 2: Pt to be able to stand for oral care with CGA. Goal to be met by: 04/03/25 GOAL 3: Pt to be Independent with toilet management. Goal to be met by: 04/03/25 GOAL 4: Pt to be CGA for toilet transfers. Goal to be met by: 04/03/25 GOAL 5: Pt to increase RUE strength to 4+/5. Goal to be met by: 04/03/25 Longterm Goals GOAL 1: Independent with ADLs. Goal to be met by: 04/04/25 GOAL 2: Pt to increase BUE to 4+/5. Goal to be met by: 04/04/25 GOAL 3: Pt to be Indep. with LB dressing with AD. Goal to be met by: 04/04/25 Plan Plan of Care: Therapeutic EX, Therapeutic Activity and Self-Care/Home Management Frequency of Treatment: 1-2 X day, as tolerated Duration of Treatment: 6 days Anticipated Discharge Destination: Home Treatment Diagnosis (ICD 10 Codes): Z74.1 Need for assistance with personal care, Impaired bal. R26.81, R53.1 Weakness Has the Physician been added for Co-signature?: Yes
--- NOTE | 2025-03-29 15:22 | US ---
EXAM: DILLON AND WAVEFORM EVALUATION, BILATERAL HISTORY: Bilateral lower extremity claudication which interferes with patient's lifestyle. TECHNIQUE: Arterial pressures were performed in the left and right brachial and left and right lower extremity regions with waveform evaluation. COMPARISON: None. FINDINGS: Right: Segmental Pressures: - Brachial: 130 systolic - Ankle (PT): 121 systolic. 0.92 ankle/brachial index. - Ankle (DP): 153 systolic. 1.17 ankle/brachial index. Waveform Analysis: - Ankle (PT): Biphasic. - Ankle (DP): Biphasic. Left: Segmental Pressures: - Brachial: 131 systolic. - Ankle (PT): 88 systolic. 0.67 ankle/brachial index. - Ankle (DP): 104 systolic. 0.79 ankle/brachial index. Waveform Analysis: - Ankle (PT): Monophasic. - Ankle (DP): Monophasic. IMPRESSION: Right DILLON: 1.17 Left DILLON: 0.79 COMMENT: Ankle Brachial Index (DILLON): - Normal: 1.0-1.4 - Borderline: 0.91-0.99 - Mild PAD: 0.71-0.90 - Moderate PAD: 0.51-0.70 - Severe PAD: <0.50
--- NOTE | 2025-03-29 15:45 | US ---
EXAM: ULTRASOUND OF THE BILATERAL LOWER EXTREMITY ARTERIAL VASCULATURE. . History: Lower extremity claudication. Comparison: none. Technique: Grayscale, color flow, and spectral doppler ultrasound of the bilateral lower extremity arterial vasculature. Findings: Exam is limited as patient was unable to lie still during the exam. Right lower extremity: Biphasic wave forms with normal flow velocity in the common femoral, superficial femoral, popliteal, and posterior tibial arteries. Monophasic waveform with reduced flow velocity of 24 cm/s in the dorsalis pedis artery. Left lower extremity: Abnormal monophasic waveforms with reduced flow velocity in the common femoral, superficial femoral, popliteal, dorsalis pedis, and posterior tibial arteries. The lowest flow velocity is 29 cm/s in the popliteal artery. Extensive plaque in the bilateral lower extremity arteries. Impression: Peripheral vascular disease with abnormal monophasic waveform in the right dorsalis pedis artery and throughout the left lower extremity arterial vessels..
[2025-03-29] MEDS: NORCO 5-325 PO PRN (18:36)
[2025-03-30 05:15] LABS: IMMATURE GRANULOCYTE # (AUTO) 0.1 (0.0-1.0); IMMATURE GRANULOCYTE % (AUTO) 0.7 % (0.0-5.0); RDW COEFFICIENT OF VARIATION 22.6 % (11.6-14.8)
[2025-03-30 05:29] LABS: CREATININE 1.44 mg/dL (0.60-1.10)
--- NOTE | 2025-03-30 09:49 | DI ---
EXAM: CHEST RADIOGRAPH TECHNIQUE: Two views. Frontal and lateral. HISTORY: Congestion. Elevated white count. COMPARISON: 03/28/2025 FINDINGS: EKG leads project over the chest. No pulmonary infiltrate is identified. No pleural effusion or pneumothorax is seen. Borderline cardiomegaly. Patient is status post coronary artery stenting. No acute displaced rib fractures are identified. High-riding right humerus, consistent with chronic rotator cuff tear. Vascular calcifications of both subclavian and axillary arteries, again noted. Surgical clips in the left lower neck and upper abdomen. IMPRESSION: 1. No acute findings in the chest.
--- NOTE | 2025-03-30 09:54 | PCM.PROG ---
Date/Time Seen Date Seen by Provider: 03/30/25 Time Seen by Provider: 08:30 Provider Provider: Nory [facility] Chief Complaint Chief Complaint: AFIB RVR, MID CHF, BACK PAIN Subjective Subjective: Patient denies complaints today. States back pain is better but right hip still hurting. Patient's hgb continues to trend down, has not had BM while here. WBC count elevated today. No fever. Art US showing PAD. HR in 60s consistently. Objective Appearance: Positive No Apparent Distress, Alert and Oriented x3 and Thin Chest/Lungs: Positive Clear to Auscultation Bilaterally; Negative Rales, Rhonci or Wheezes Heart: Positive Irregular Rhythm and Bracycardia GI/: Positive Soft, Nontender, Bowel Sounds Normal and No Distention Neurological: Positive Cranial Nerves Intact, Alert, Oriented and Other (+generalized weakness ) Additional Findings: - nikolas erythema of lower legs, loss of hair, shiny skin. No discoloration or ulcerations of toes currently. Poor nail hygiene. Vital Signs Vital Signs: Vital Signs: Last 24 Hours 03/29/25 10:00 03/29/25 10:00 03/29/25 13:00 Temperature 96.3 F L Temperature Source Oral Pulse Rate 66 Respiratory Rate 17 Blood Pressure 96/48 L Blood Pressure Mean 64 Blood Pressure Location Right Arm Blood Pressure Position Sitting O2 Sat by Pulse Oximetry 98 96 Oxygen Delivery Method Room Air Room Air Height Weight Telemetry Type Bedside Monitor Telemetry Monitoring Continues Irregular Telemetry Rate (Approximate) 40-50 BPM Telemetry Heart Rate 43 L Telemetry SPO2 EKG QRS Interval 0.09 Telemetry Strip Reading AFIB 03/29/25 14:00 03/29/25 14:00 03/29/25 18:00 Temperature 97.2 F L 97.3 F L Temperature Source Temporal Artery Scan Tympanic Pulse Rate 58 L 50 L Respiratory Rate 16 19 Blood Pressure 121/48 L 114/63 Blood Pressure Mean 72 80 Blood Pressure Location Right Arm Left Arm Blood Pressure Position Supine O2 Sat by Pulse Oximetry 98 97 96 Oxygen Delivery Method Room Air Room Air Room Air Height Weight Telemetry Type Telemetry Monitoring Irregular Telemetry Rate (Approximate) Telemetry Heart Rate Telemetry SPO2 EKG QRS Interval Telemetry Strip Reading 03/29/25 19:00 03/29/25 20:00 03/29/25 20:00 Temperature Temperature Source Pulse Rate Respiratory Rate Blood Pressure Blood Pressure Mean Blood Pressure Location Blood Pressure Position O2 Sat by Pulse Oximetry 97 Oxygen Delivery Method Room Air Room Air Height Weight Telemetry Type Bedside Monitor Telemetry Monitoring Continues Irregular Telemetry Rate (Approximate) 50-60 BPM Telemetry Heart Rate 54 L Telemetry SPO2 98 EKG QRS Interval 0.09 Telemetry Strip Reading AFIB 03/29/25 21:44 03/30/25 01:00 03/30/25 02:00 Temperature 97.9 F Temperature Source Temporal Artery Scan Pulse Rate 57 L 62 Respiratory Rate 18 22 H Blood Pressure 127/51 L 111/42 L Blood Pressure Mean 76 65 Blood Pressure Location Right Arm Left Arm Blood Pressure Position Supine Supine O2 Sat by Pulse Oximetry 98 90 L Oxygen Delivery Method Room Air Room Air Height Weight Telemetry Type Bedside Monitor Telemetry Monitoring Continues Irregular Telemetry Rate (Approximate) 50-60 BPM Telemetry Heart Rate 55 L Telemetry SPO2 97 EKG QRS Interval 0.09 Telemetry Strip Reading AFIB 03/30/25 04:57 03/30/25 05:05 03/30/25 07:00 Temperature 97.6 F Temperature Source Temporal Artery Scan Pulse Rate 64 Respiratory Rate 14 Blood Pressure 138/64 Blood Pressure Mean 88 Blood Pressure Location Left Arm Blood Pressure Position Supine O2 Sat by Pulse Oximetry 95 95 Oxygen Delivery Method Room Air Room Air Height Weight Telemetry Type Remote Telemetry Telemetry Monitoring Continues Irregular Telemetry Rate (Approximate) 60-70 BPM Telemetry Heart Rate Telemetry SPO2 EKG QRS Interval 0.07 Telemetry Strip Reading A-Fib 03/30/25 08:44 Temperature Temperature Source Pulse Rate Respiratory Rate Blood Pressure Blood Pressure Mean Blood Pressure Location Blood Pressure Position O2 Sat by Pulse Oximetry Oxygen Delivery Method Height 6 ft 1 in Weight 68.6 kg Telemetry Type Telemetry Monitoring Irregular Telemetry Rate (Approximate) Telemetry Heart Rate Telemetry SPO2 EKG QRS Interval Telemetry Strip Reading Lab Results Lab Results: Lab Results: Last 24 Hours 03/30/25 05:14 WBC 16.31 H D RBC 2.53 L Hgb 7.3 L Hct 22.6 L MCV 89.3 MCH 28.9 MCHC 32.3 RDW Coeff of Sri 22.6 H Plt Count 287 Immature Gran % (Auto) 0.7 Neut % (Auto) 84.8 H Lymph % (Auto) 9.1 L [place] % (Auto) 5.2 Eos % (Auto) 0.1 Baso % (Auto) 0.1 Neut # (Auto) 13.9 H Lymph # (Auto) 1.5 [place] # (Auto) 0.9 Eos # (Auto) 0.0 Baso # (Auto) 0.0 Immature Gran # (Auto) 0.1 Anisocytosis 3+ Target Cells 1+ Acanthocytes (Spur) 1+ Sodium 138.1 Potassium 4.05 Chloride 101.1 Carbon Dioxide 28.5 Anion Gap 12.55 BUN 45.2 H Creatinine 1.44 H Estimated GFR (MDRD) 47.00 BUN/Creatinine Ratio 31.38 Glucose 122.7 H Calcium 8.46 Magnesium 2.06 Additional Comments Additional Comments: I have independently reviewed and interpreted the labs/EKGs/imaging ordered during this hospital stay. I have reviewed outside records that are available in our EMR that pertain to medical stay including imaging/notes/labs from previous visits. Active Medications Active Medications: Medications Generic Name Dose Route Start Last Admin Trade Name Freq PRN Reason Stop Dose Admin Acetaminophen 650 mg 03/28/25 16:48 03/29/25 14:59 Acetaminophen 325 Mg Tablet PO 650 mg Q4H PRN Administration Mild Pain Hydrocodone Bitart/Acetaminophen 1 tab 03/29/25 18:10 03/30/25 05:10 Hydrocodone Bit/Acetaminophen 5/325 Mg Tablet PO 1 tab Q6HR PRN Administration MODERATE PAIN Albuterol/Ipratropium 3 ml 03/28/25 16:47 Ipratropium/Albuterol Vial.Neb NEB RTQ6H PRN dyspnea Allopurinol 100 mg 03/29/25 09:00 03/30/25 08:36 Allopurinol 100 Mg Tablet PO 100 mg DAILY BERYL Administration Apixaban 5 mg 03/28/25 21:00 03/30/25 08:36 Apixaban 5 Mg Tab PO 5 mg On Hold: 03/30/25 08:46 BID BERYL Administration Aspirin 81 mg 03/29/25 07:30 03/30/25 08:36 Aspirin 81 Mg Tablet. PO 81 mg On Hold: 03/30/25 08:46 DAILYWM2 BERYL Administration Atenolol 25 mg 03/29/25 09:00 03/29/25 09:27 Atenolol 25 Mg Tablet PO 25 mg On Hold: 03/29/25 21:16 DAILY BERYL Administration Atorvastatin Calcium 40 mg 03/28/25 21:00 03/29/25 21:43 Atorvastatin Calcium 20 Mg Tablet PO 40 mg BEDTIME BERYL Administration Budesonide/Formoterol Fumarate 2 puff 03/28/25 21:00 03/30/25 08:37 Budesonide/Formoterol Fumarate 160/4.5 Mcg Inhaler IH 2 puff BID BERYL Administration Diltiazem HCl 180 mg 03/28/25 16:50 03/29/25 10:32 Diltiazem Hcl 180 Mg Cap.Er.24h PO Not Given On Hold: 03/29/25 10:32 DAILY BERYL Ferrous Sulfate 324 mg 03/29/25 09:55 03/30/25 05:10 Ferrous Sulfate 324 Mg Tablet. PO 324 mg QDAC2 BERYL Administration Furosemide 20 mg 03/29/25 09:00 03/30/25 05:10 Furosemide 20 Mg Tablet PO 20 mg On Hold: 03/30/25 08:28 QDAC2 BERYL Administration Levothyroxine Sodium 112 mcg 03/29/25 06:30 03/30/25 05:32 Levothyroxine Sodium 112 Mcg Tablet PO 112 mcg 0630 BERYL Administration Magnesium Oxide 400 mg 03/29/25 09:00 03/30/25 08:36 Magnesium Oxide 400 Mg Tablet PO 400 mg DAILY BERYL Administration Non-Formulary Medication 0.25 mcg 03/29/25 09:00 03/29/25 10:32 Calcitriol PO Not Given [id number] [facility] Pantoprazole Sodium 40 mg 03/29/25 07:30 03/30/25 05:10 Pantoprazole Sodium 40 Mg Tablet. PO 40 mg BIDAC2 BERYL Administration Tamsulosin HCl 0.4 mg 03/28/25 21:00 03/29/25 21:43 Tamsulosin Hcl 0.4 Mg Cap.Er.24h PO 0.4 mg BEDTIME BERYL Administration Assessment (1) Claudication of both lower extremities: Status: Acute Code(s): I73.9 - Peripheral vascular disease, unspecified SNOMED Code(s): 83773448 (2) Spinal stenosis: Status: Acute Code(s): M48.00 - Spinal stenosis, site unspecified SNOMED Code(s): 36732573 (3) Anemia: Status: Acute Code(s): D64.9 - Anemia, unspecified SNOMED Code(s): 563115728 (4) Atrial fibrillation with RVR: Status: Acute Code(s): I48.91 - Unspecified atrial fibrillation SNOMED Code(s): 259557590797864 (5) COPD (chronic obstructive pulmonary disease): Status: Acute Code(s): J44.9 - Chronic obstructive pulmonary disease, unspecified SNOMED Code(s): 97479106 (6) Low back pain: Status: Acute Code(s): M54.50 - Low back pain, unspecified SNOMED Code(s): 766517180 (7) Degenerative disc disease, lumbar: Status: Acute Code(s): M51.369 - Other intervertebral disc degeneration, lumbar region without mention of lumbar back pain or lower extremity pain SNOMED Code(s): 21298257 (8) CHF (congestive heart failure): Status: Acute Code(s): I50.9 - Heart failure, unspecified SNOMED Code(s): 58125476 (9) CKD (chronic kidney disease): Status: Acute Code(s): N18.9 - Chronic kidney disease, unspecified SNOMED Code(s): 923726576 (10) Weakness: Status: Acute Code(s): R53.1 - Weakness SNOMED Code(s): 80902660 Plan Plan: 1. AFib with RVR - Suspect patient hasn't been taking any meds at home. Will give 1/2 dose of his usual atenolol. Hold eliquis and ASA due to anemia. Monitor renal function closely. Amiodarone drip stopped 03/29. 2. Dyspnea - Likely due to AFib w RVR and mild volume overload. Improved now with rate control and gentle diuresis. He does not appear volume overloaded on exam or CXR now. Not in COPD exacerbation. Hold off further diuresis. 3. Mild CHF exacerbation/elevated NTproBNP - Due to RVR. He has underlying diastolic dysfunction. EF 60% on echo 04/2024. Hold off further diuresis as he appears euvolemic now. 4. Back pain radiating into hips and legs. - Art US confirms PAD, will need vascular f/u. Cont statin, hold asa and eliquis due to anemia. Counseled to quit smoking. Not currently having rest pain, open wound or tissue loss. 5. 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 6. CKD III. GFR 59 today, Cr 1.18. Appears to be baseline. 7. Normocytic anemia. Hb trending down to 7.3 Monitor. Anemia w/u - iron low, start supplement. Occult stool ordered. Hold asa and eliquis. 8. Hypomagnesemia - resolved 9. HTN. Meds adjusted for rate control. 10. HLD. Statin. 11. COPD. Stable. 12. Weakness/asthenia. PT/OT evals. Discussed swing bed program, but if his vascular disease is as severe as I suspect, he may not be able to meaningfully participate in a swing bed program until that is addressed. DVT Prophylaxis: Holding Update: occult stool positive. Has been positive in the past. Discussed this with patient, an EGD and colonoscopy would be recommended. He states he would "rather " than have that done right now especially if he required being transferred for it. He is agreeable to transfusing blood however. Will give 1U PRBCs. On protonix. Hold asa and eliquis. Likely has a slow GI bleed. Review Statement Review Statement: I have personally discussed and reviewed the patient's visit/currently labs/imaging/decision making with Dr. Bay, my supervising attending. Greater that 50 minutes spent with patient, 50% of the time spent with this patient was devoted to counseling and coordination of care.
[2025-03-30 12:44] LABS: GLUCOSE, URINE (UA) Negative (NEGATIVE); LEUKOCYTE ESTERASE ,URINE Negative (NEGATIVE); URINE, BLOOD Trace-intact (NEGATIVE)
[2025-03-30 12:49] LABS: SQUAMOUS EPITHELIAL CELL,UR 0-2 (0-5); URINE RBC, MICROSCOPIC 0-2 (0-2)
[2025-03-30 14:46] LABS: OCCULT BLOOD SAMPLE 1 POSITIVE (NEGATIVE); OCCULT BLOOD SAMPLE 2 NO SPECIMEN RECEIVED (NEGATIVE); OCCULT BLOOD SAMPLE 3 NO SPECIMEN RECEIVED (NEGATIVE)
[2025-03-31 05:39] LABS: IMMATURE GRANULOCYTE # (AUTO) 0.1 (0.0-1.0); IMMATURE GRANULOCYTE % (AUTO) 0.9 % (0.0-5.0); RDW COEFFICIENT OF VARIATION 21.7 % (11.6-14.8)
[2025-03-31 06:08] LABS: CREATININE 1.11 mg/dL (0.60-1.10)
[2025-03-31 09:40] VITALS: BP 130/60; PULSE 73; RESP 17; TEMP 98.3
[2025-03-31] MEDS: TENORMIN PO SCH (09:46)
--- NOTE | 2025-03-31 12:46 | DCSUM ---
Admission Date Admission Date: 03/28/25 Discharge Date Discharge Date: 03/31/25 Admission Diagnosis Admission Diagnosis: 1. AFib with RVR Discharge Diagnosis Discharge Diagnosis: 1. AFib with RVR - resolved. 2. Dyspnea - resolved 3. Mild CHF exacerbation/elevated NTproBNP - Due to RVR. resolved 4. PAD - Art US confirms PAD, will need vascular f/u. C 5. 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 6. CKD III. 7. Normocytic anemia 8. Hypomagnesemia - resolved 9. HTN 10. HLD 11. COPD 12. Weakness/asthenia Hospital Provider Hospital Provider: Glen Grider [facility]-C, [facility] Physician Primary Care Physician: JAZZMINE MACIEL Summary of History and Physical Summary of History and Physical: 84 yo male smoker (70+ pack year) with h/o HTN, HLP, atrial fibrillation, PAD, hypothyroidism called EMS due to low back pain radiating into hips and down right leg, symptoms worse over past week. Patient was also reportedly dyspneic and received a DuoNeb en route by EMS. On arrival to ER he was noted to be in AFib with RVR and thought mildly volume overloaded with NTproBNP >11,000. He was started on amiodarone drip for rate control and given dose of IV Lasix with good response. Patient reports his breathing is improved now. He remains in AFib (chronic), but HR now controlled around 80 on gambling monitor. Patient lives with his son. States he usually is independent with self-care, but in past week is only able to walk a few feet due to the pain. Feels like right leg will give out, but denies any recent falls. CT lumbar spine in ER demonstrates mild to moderate degenerative changes in the lumbosacral spine. CXR negative for acute finding. LVEF 60% with LVH on echo 05/05/2024. Aortoiliac atherosclerosis noted on prior CT abdomen/pelvis from 05/02/24; it is a non- contrasted study. Patient denies any history of workup for PAD or prior vascular intervention. [facility] Hospital Course Subjective: Patient had been started on amiodarone drip in the ER. Patient was continued on his home atenolol 25 mg dose and started on Cardizem 180 mg and amiodarone drip was discontinued. On morning of 03/29 patient was bradycardic in the 40s. Cardizem was held. He had already gotten his atenolol. He continued to be in the 40s to 50s. On 724 his heart rate was improved into the 60s and 70s. He was started on half a dose of atenolol at just 12.5 mg daily. He was continued on aspirin and Eliquis, however his hemoglobin has continued to trend down to 7.3, and looking back over the last several months it is slowly trended down. Anemia workup revealed iron deficiency and he was started on iron supplement. He also had complained of some mild dizziness and with his cardiac history he was given 1 unit of packed red blood cells. He tolerated well. Hem oglobin has remained stable today at 8.5. His occult stool was positive, it was also positive in June 2024. I discussed with him the workup involved in this including a colonoscopy and EGD and at this time he is not interested did in doing that. He states "I would rather ". Discussed he can follow-up with his PCP in regards to this as it is likely appropriate to do outpatient as this has been ongoing for him. But due to this risk, we will go ahead and hold his aspirin and Eliquis until he can follow-up with his PCP on Thursday for recheck. Regarding his back pain, he does have significant signs of PAD. Arterial ultrasounds have confirmed this. Results as below. His pain could be related to the degenerative disc disease in his back but also could be worsened by claudication due to his PAD. Would recommend an outpatient vascular surgery referral. He currently does not have any ulcerations or discoloration of his feet or toes. Pulses are intact. No emergent indications at this time. I have a lot of concerns regarding the patient's care at home. He was home from [place] less than 10 days before presenting to our facility. I suspect that he is not taking any of his medications or at least not correctly. For instance, when he received his full dose atenolol he was bradycardic. He did not tolerate it. When asking the son and where they are feeling medications, it sounds as though they get some mailed to them from the [facility]. However the [facility] does not have Eliquis on file when our correctional case manager called and spoke with their pharmacist. They said that they had filled some at [facility] however [facility] has not filled anything for him in several months reportedly. I spoke with the son Fred and strongly encouraged that the patient make his follow-up on the with his PCP and to take all medications that they have and his current med list that we have provided with him to that appointment to get this sorted out. Discussed that is very imperative that he holds aspirin and Eliquis this week and until told otherwise by his PCP. Advised that this does increase his stroke risk due to his A-fib which Fred is understanding. But also at risk of severe anemia with a positive occult stool. He is on Protonix twice daily reportedly. Discussed taking only one half of atenolol 25 mg tablet and to make sure there is no other medications that ended in "olol" as he has been prescribed metoprolol in the past as well but I do not know that he has ever picked that up. He will be getting home health services including nursing which could help as well. We had recommended going to [place] again, as I foresee he is heading toward long-term placement. However at this time he would like to go home. Discharged in stable condition. Patient has been ambulatory with therapy. He is eating and drinking well. Heart rate has been well-controlled in the 70s today. Patient is high risk of readmission. Appearance: Pleasant, No Apparent Distress and Alert HEENT: MMM CVS: Other (irregularly irregular ) Abdomen: Soft, Non-Tender and No Distention Respiratory: No Accessory Muscle Use Extremities: No Edema and Other (signs of PAD nikolas lower ext. pulses intact. no ulcerations or discoloration of distal feet ) Vital Signs: Most Recent Vital Signs Temperature 98.3 F 03/31/25 09:39 Temperature Source Temporal Artery Scan 03/31/25 09:39 Temperature Source Temporal Artery Scan 03/28/25 13:31 Pulse Rate 73 03/31/25 09:39 Respiratory Rate 17 03/31/25 09:39 Blood Pressure 130/60 03/31/25 09:39 Blood Pressure Mean 83 03/31/25 09:39 Blood Pressure Left Arm 157/84 03/28/25 16:33 Blood Pressure Location Left Arm 03/31/25 09:39 Blood Pressure Position Supine 03/31/25 09:39 O2 Sat by Pulse Oximetry 97 03/31/25 09:39 Oxygen Delivery Method Room Air 03/31/25 10:00 Height 6 ft 1 in 03/30/25 08:44 Weight 68.6 kg 03/30/25 08:44 Telemetry Type Bedside Monitor 03/31/25 00:49 Telemetry Monitoring Continues 03/31/25 00:49 Irregular Telemetry Rate (Approximate) 60-70 BPM 03/30/25 13:00 Telemetry Heart Rate 77 03/31/25 00:49 Telemetry SPO2 97 03/31/25 00:49 EKG QRS Interval 0.05 L 03/31/25 00:49 Telemetry Strip Reading A-FIB WITH PVC'S 03/31/25 00:49 Imaging: EXAM: CHEST RADIOGRAPH TECHNIQUE: Single frontal chest radiograph. HISTORY: Shortness of breath. COMPARISON: 02/19/2025 FINDINGS: Of the patient's neck partially obscures both apices. EKG leads project over the chest. No pulmonary infiltrate is identified. No pleural effusion or pneumothorax is seen. Heart size is normal. No acute displaced rib fractures are identified. Old, healed left lower rib fractures anterolaterally. IMPRESSION: 1. No acute findings in the chest. COMPARISON: CT abdomen and pelvis 02/22/2025 FINDINGS: Similar moderate multilevel degenerative disc and endplate changes, most severe at L5-S1. No compression deformity or subluxation. Normal facet articulation bilaterally without pars defect. Moderate degenerative facet arthropathy stable chronic bone changes at L1. Pedicles and bony canal appear maintained. No acute displaced fracture or destructive lesion. Suggestion of mild-moderate spinal stenosis at L3-4 and L4-5 due to degenerative changes. Vascular calcifications. Renal cysts. Uncomplicated diverticular changes. Paravertebral soft tissues otherwise appear unremarkable. IMPRESSION: 1. Stable appearance of the lumbar spine without displaced fracture, subluxation or compression deformity. 2. Similar moderate multilevel degenerative disc and endplate changes, most noted at L5-S1. 3. Similar moderate degenerative facet arthropathy. 4. Suggestion of mild-moderate spinal stenosis at the L3-4 and L4-5 levels due to degenerative changes. 5. Calcified atherosclerosis, renal cortical cysts and diverticulosis without evidence of diverticulitis. EXAM: ULTRASOUND OF THE BILATERAL LOWER EXTREMITY ARTERIAL VASCULATURE. . History: Lower extremity claudication. Comparison: none. Technique: Grayscale, color flow, and spectral doppler ultrasound of the bilateral lower extremity arterial vasculature. Findings: Exam is limited as patient was unable to lie still during the exam. Right lower extremity: Biphasic wave forms with normal flow velocity in the common femoral, superficial femoral, popliteal, and posterior tibial arteries. Monophasic waveform with reduced flow velocity of 24 cm/s in the dorsalis pedis artery. Left lower extremity: Abnormal monophasic waveforms with reduced flow velocity in the common femoral, superficial femoral, popliteal, dorsalis pedis, and posterior tibial arteries. The lowest flow velocity is 29 cm/s in the popliteal artery. Extensive plaque in the bilateral lower extremity arteries. Impression: Peripheral vascular disease with abnormal monophasic waveform in the right dorsalis pedis artery and throughout the left lower extremity arterial vessels.. EXAM: DILLON AND WAVEFORM EVALUATION, BILATERAL HISTORY: Bilateral lower extremity claudication which interferes with patient's lifestyle. TECHNIQUE: Arterial pressures were performed in the left and right brachial and left and right lower extremity regions with waveform evaluation. COMPARISON: None. FINDINGS: Right: Segmental Pressures: - Brachial: 130 systolic - Ankle (PT): 121 systolic. 0.92 ankle/brachial index. - Ankle (DP): 153 systolic. 1.17 ankle/brachial index. Waveform Analysis: - Ankle (PT): Biphasic. - Ankle (DP): Biphasic. Left: Segmental Pressures: - Brachial: 131 systolic. - Ankle (PT): 88 systolic. 0.67 ankle/brachial index. - Ankle (DP): 104 systolic. 0.79 ankle/brachial index. Waveform Analysis: - Ankle (PT): Monophasic. - Ankle (DP): Monophasic. IMPRESSION: Right DILLON: 1.17 Left DILLON: 0.79 COMMENT: Ankle Brachial Index (DILLON): - Normal: 1.0-1.4 - Borderline: 0.91-0.99 - Mild PAD: 0.71-0.90 - Moderate PAD: 0.51-0.70 - Severe PAD: <0.50 Lab Results Last 24 Hours: 03/31/25 03/30/25 03/30/25 05:27 21:33 15:25 WBC 12.45 H RBC 2.98 L Hgb 8.5 L 8.4 L Hct 26.3 L 26.5 L MCV 88.3 MCH 28.5 MCHC 32.3 RDW Coeff of Sri 21.7 H Plt Count 312 Immature Gran % (Auto) 0.9 Neut % (Auto) 73.5 Lymph % (Auto) 17.1 [place] % (Auto) 5.9 Eos % (Auto) 2.2 Baso % (Auto) 0.4 Neut # (Auto) 9.2 H Lymph # (Auto) 2.1 [place] # (Auto) 0.7 Eos # (Auto) 0.3 Baso # (Auto) 0.1 Immature Gran # (Auto) 0.1 Sodium 138.7 Potassium 3.89 Chloride 102.2 Carbon Dioxide 29.0 Anion Gap 11.39 BUN 35.1 H Creatinine 1.11 H Estimated GFR (MDRD) 63.00 BUN/Creatinine Ratio 31.62 Glucose 99.5 Calcium 8.38 L Magnesium 1.82 Total Bilirubin 0.89 AST 37.2 ALT 17.4 Alkaline Phosphatase 63.6 Total Protein 6.00 L Albumin 2.78 L Globulin 3.22 Albumin/Globulin Ratio 0.86 Urine Color Urine Clarity Urine pH Ur Specific [place] Urine Protein Urine Glucose (UA) Urine Ketones Urine Blood Urine Nitrite Urine Bilirubin Urine Urobilinogen Ur Leukocyte Esterase Urine Microscopic RBC Ur Squamous Epith Cells Urine Mucus Stl Occult Blood (IFOB) Stool Occult Blood #2 Stool Occult Blood #3 Blood Type A POSITIVE Antibody Screen Negative Crossmatch ([facility]) See Detail 03/30/25 03/30/25 14:00 12:30 WBC RBC Hgb Hct MCV MCH MCHC RDW Coeff of Sri Plt Count Immature Gran % (Auto) Neut % (Auto) Lymph % (Auto) [place] % (Auto) Eos % (Auto) Baso % (Auto) Neut # (Auto) Lymph # (Auto) [place] # (Auto) Eos # (Auto) Baso # (Auto) Immature Gran # (Auto) Sodium Potassium Chloride Carbon Dioxide Anion Gap BUN Creatinine Estimated GFR (MDRD) BUN/Creatinine Ratio Glucose Calcium Magnesium Total Bilirubin AST ALT Alkaline Phosphatase Total Protein Albumin Globulin Albumin/Globulin Ratio Urine Color Yellow Urine Clarity Clear Urine pH 5.5 Ur Specific [place] 1.020 Urine Protein 1+ H Urine Glucose (UA) Negative Urine Ketones Negative Urine Blood Trace-intact H Urine Nitrite Negative Urine Bilirubin Negative Urine Urobilinogen 0.2 Ur Leukocyte Esterase Negative Urine Microscopic RBC 0-2 Ur Squamous Epith Cells 0-2 Urine Mucus Trace Stl Occult Blood (IFOB) Positive Stool Occult Blood #2 No specimen received Stool Occult Blood #3 No specimen received Blood Type Antibody Screen Crossmatch ([facility]) Discharge Instructions Discharge Planning: Discharge Planning > [address] Jacy Bay. Discharge Medications: Medications at Discharge (Home Meds & RX) allopurinol 100 mg tablet 100 mg PO DAILY 06/25/23 amlodipine 10 mg tablet 5 mg PO DAILY 06/25/23 atorvastatin 80 mg tablet 40 mg PO BEDTIME 06/25/23 levothyroxine 112 mcg tablet (Euthyrox) 112 mcg PO DAILY 06/25/23 magnesium oxide 400 mg PO DAILY 06/25/23 furosemide 20 mg tablet 20 mg PO DAILY 08/27/23 calcitriol 0.25 mcg capsule 0.25 mcg PO .COMPLEX 10/05/24 pantoprazole 40 mg tablet,delayed release 40 mg PO BID 10/05/24 ipratropium 0.5 mg-albuterol 3 mg (2.5 mg base)/3 mL nebulization soln 3 ml NEB RTQ6H PRN Shortness Of Breath Or Wheezing #180 mL 02/24/25 fluticasone 100 mcg-salmeterol 50 mcg/dose blistr powdr for inhalation (Wixela Inhub) 1 inh inhalation BID 03/28/25 tamsulosin 0.4 mg capsule (Flomax) 0.4 mg PO BEDTIME 03/28/25 atenolol 25 mg tablet 12.5 mg (1/2 x 25 mg) PO DAILY #30 tabs 03/31/25 ferrous sulfate 324 mg (65 mg iron) tablet,delayed release 324 mg PO QDAC2 #30 tabs 03/31/25 hydrocodone 5 mg-acetaminophen 325 mg tablet 1 tab PO BID #6 tabs 03/31/25 Discharge Plan Discharge Discharge Orders: Discharge Patient (ONCE); Ordered 03/31/25 Ordered By: GLEN GRIDER Activity Restrictions/Additional Instructions: DISCHARGE TO HOME SERVICES [facility]: LON HOLD ASPIRIN AND ELIQUIS UNTIL PCP FOLLOW UP, THEY MAY CHOOSE TO RESTART IT IT IS VERY IMPORTANT YOU GO TO PCP FOLLOW UP WOULD BENEFIT FROM VASCULAR REFERRAL FOR PAD ATENOLOL DOSE HAS BEEN CHANGED TO 12.5 MG DAILY PLEASE DOUBLE CHECK MEDICATIONS AT HOME THAT DOSES ARE CORRECT AND LISTED, PLEASE TAKE YOUR MEDICATIONS WITH YOU TO PCP SO THEY CAN ENSURE THEY ARE CORRECT Instructions: Anemia (ED), Back Pain (ED) Patient Disposition: HOME WITH FAMILY CARE Prescriptions: New hydrocodone-acetaminophen 5-325 mg Tablet 1 tab PO BID Qty: 6 0RF atenolol 25 mg Tablet 12.5 mg PO DAILY Qty: 30 0RF ferrous sulfate 324 mg (65 mg iron) Tablet,Delayed Release (Dr/Ec) 324 mg PO QDAC2 Qty: 30 0RF Continued furosemide 20 mg tablet 20 mg PO DAILY fluticasone propion-salmeterol [Wixela Inhub] 100-50 mcg/dose blister with device 1 inh inhalation BID tamsulosin [Flomax] 0.4 mg capsule 0.4 mg PO BEDTIME levothyroxine [Euthyrox] 112 mcg tablet 112 mcg PO DAILY atorvastatin 80 mg tablet 40 mg PO BEDTIME allopurinol 100 mg tablet 100 mg PO DAILY amlodipine 10 mg tablet 5 mg PO DAILY magnesium oxide 400 mg magnesium capsule 400 mg PO DAILY calcitriol 0.25 mcg capsule 0.25 mcg PO .COMPLEX Rx Instructions: 0.25 mcg orally 3 times per week; pantoprazole 40 mg tablet,delayed release (DR/EC) 40 mg PO BID ipratropium-albuterol 0.5 mg-3 mg(2.5 mg base)/3 mL Solution For Nebulization 3 ml NEB RTQ6H PRN (Reason: Shortness Of Breath Or Wheezing) Qty: 180 0RF Discontinued atenolol 25 mg tablet 25 mg PO DAILY aspirin [Lor Low Dose Aspirin] 81 mg tablet,delayed release (DR/EC) 81 mg PO DAILY Eliquis 2.5 mg tablet 2.5 mg PO BID Did you review [place] [employer] for ALL controlled substances?: Yes Discussed opioids are addictive and Narcan is available by prescription or from pharmacy.: Yes Condition: Stable Referrals: SHASTA LYNN [REFERRING, Family Practice] - 04/07/25 8:00 am Referral Note: WOUND CARE/PODIATRY JAZZMINE MACIEL [Primary Care Provider, [employer]] - 04/03/25 3:30 pm
== END 2025-03-31 13:55 | disposition home or self-care (01) | DRG 309 ==
LOC: ED 13:27 → MEDSURG B 15:39
PROVIDERS: ADMIT Hospitalist; ATTEND Physician Assistant
DX: I50.9 Heart failure, unspecified; N18.30 Chronic kidney disease, stage 3 unspecified; E83.42 Hypomagnesemia; J44.9 Chronic obstructive pulmonary disease, unspecified; R53.1 Weakness; R06.00 Dyspnea, unspecified; E78.5 Hyperlipidemia, unspecified; I48.91 Unspecified atrial fibrillation; D64.9 Anemia, unspecified; I13.0 Hypertensive heart and chronic kidney disease with heart failure and stage 1 through stage 4 chronic kidney disease, or unspecified chronic kidney disease; M51.379 Other intervertebral disc degeneration, lumbosacral region without mention of lumbar back pain or lower extremity pain; I73.9 Peripheral vascular disease, unspecified

== ENCOUNTER 2025-06-18 18:18 | Inpatient (IN) ==
--- NOTE | 2025-06-18 19:03 | ED.PDOC ---
General HPI ED Provider: Dr. DONNA RANDHAWA MD Chief Complaint: Weakness Stated Complaint: Pt has h/o COPD, CHF, CKD, afib and presents by EMS with SOB that started around noon today. Reports cough that is productive of yellow sputum. Apparently reported some chest pain and nausea to EMS, but was given duoneb and zofran en route and those symptoms resolved. He denies current chest pain. No known fever at home, but febrile here. No vomiting. No swelling to legs. He still smokes cigarettes. Time Seen by Provider: 06/18/25 18:20 Mode of Arrival: Ambulance Information Source: Patient, Family and EMT Exam Limitations: No limitations Primary Care Provider: JAZZMINE MACIEL Nursing and Triage Documentation Reviewed and Agree: Yes Opioid Naive vs. Tolerant What is Opioid Naive?: *Opioid Naive implies the patient is not already taking opioids or not chronically receiving opioids on a daily basis. *PRN dosing is not "usually" associated with tolerance. *Patients are at higher risk of over-sedation and aspiration. What is Opioid Tolerant?: *Opioid Tolerance implies less than the expected response to an opioid. *Acquired tolerance is defined by the patient taking 60mg of oral morphine daily (or equianalgesic dose of another opioid) for 1 week or more. *Often associated with chronic pain. *May take more than usual dose to achieve desired pain control. Review of Systems Review Of Systems Constitutional: Reports Malaise and Weakness [facility] Medical History Edema R60.9 - Edema, unspecified (ICD-10) History of aortic stenosis Z86.79 - Personal history of other diseases of the circulatory system (ICD- 10) Bilateral carotid artery disease I77.9 - Disorder of arteries and arterioles, unspecified (ICD-10) Depression F32.A - Depression, unspecified (ICD-10) Anxiety F41.9 - Anxiety disorder, unspecified (ICD-10) COPD (chronic obstructive pulmonary disease) J44.9 - Chronic obstructive pulmonary disease, unspecified (ICD-10) Hyperlipidemia E78.5 - Hyperlipidemia, unspecified (ICD-10) Anemia D64.9 - Anemia, unspecified (ICD-10) Hypothyroidism E03.9 - Hypothyroidism, unspecified (ICD-10) Diabetes E11.9 - Type 2 diabetes mellitus without complications (ICD-10) Myocardial infarct March 2023 I21.9 - Acute myocardial infarction, unspecified (ICD-10) Hypertension I10 - Essential (primary) hypertension (ICD-10) Family History FATHER CAD (coronary artery disease) Mother CAD (coronary artery disease) Social History Smoking and tobacco status: Current every day smoker Tobacco type: cigarettes Smoking packs per day: 1 Smoking cigarettes per day: 20.0 Tobacco: How many years used: 70 Quit status: considering quitting Alcohol intake: former Details: Quit 8 years ago Substance use type: does not use Special elio needs: No Agree to transfusion: Yes Adopted: No Caregiver/support person: Yes Foster care: No Household members: children Housing: house Marital status: W / Lives independently: Yes Daycare: no daycare Number of children: 1 Financial difficulty paying for basics: not very hard service: Yes prison: No Current occupational status: retired History of recent travel: No Do you think of yourself as: straight/heterosexual Current gender identity: male Seatbelt use: always Helmet use: Yes Drives intoxicated or rides with intoxicated 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 Surgical History History of cholecystectomy Z90.49 - Acquired absence of other specified parts of digestive tract (ICD- 10) History of coronary artery stent placement Z95.5 - Presence of coronary angioplasty implant and graft (ICD-10) Status post spinal disc removal Z98.890 - Other specified postprocedural states (ICD-10) 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 - Acquired absence of other parts of urinary tract (ICD-10) Physical Exam Physical Exam Appearance: Reports Well-appearing and Well-nourished Ill-appearing: None Pain Distress: None Eyes: Reports Conjunctiva clear ENT: Reports Nose normal Neck: Supple Respiratory: Reports Airway patent, Breath sounds clear, Breath sounds equal and Respirations nonlabored Cardiovascular: Reports Irregular rhythm and Tachycardia GI/: Reports Soft and Nontender Musculoskeletal: Reports No edema Skin: Reports Warm and Dry Neurological: Reports Alert and Oriented Psychiatric: Reports Affect appropriate Interpretation EKG Interpretation EKG Interpretation By: ED Physician Time of EKG #1: 19:38 Rate: Normal Rhythm: Other (afib) Ectopy: None Interpretation: nonspecific ST and T wave abnormalities Radiology Interpretation Radiology Interpretation By: ED Physician Radiology Results: Negative Exam Interpreted: CXR Re-Evaluation Re-Evaluation Time of Re-Evaluation: 20:10 Status: Improved Additional Comments: Pt is resting comfortably with no respiratory distress. His HR has improved to upper 80s, O2 sats 98 percent on 2 liters. Discussed lab, EKG and CXR results with him. CXR shows no obvious infiltrate, covid/flu/RSV negative. Labs show chronic anemia, stable CKD, leukocytosis and mildly elevated lactate. BNP is elevated but no pulmonary edema seen on CXR and no peripheral edema on exam, troponin negative. EKG shows chronic afib with no STEMI. Will give doxycycline given his COPD and fever here and consult hospitalist for admission. Of note, pt arrived covered in feces and urine and was cleaned up by nurses. He does have evidence of pressure sores on his back and buttocks. Physician Notification Case Discussed Physician Notified: Hussain Maciel hospitalist TRAFFIC CONTROL SPECIALIST Time of Notification: 20:10 Comments: Agrees with admission. Course Course 06/18/25 19:10 06/18/25 19:10 Orders, Labs, Meds: Lab Review 06/18/25 06/18/25 19:00 19:10 WBC 13.98 H RBC 3.29 L Hgb 9.4 L Hct 29.8 L MCV 90.6 MCH 28.6 MCHC 31.5 L RDW Coeff of Sri 20.8 H Plt Count 248 Immature Gran % (Auto) 0.4 Neut % (Auto) 81.7 H Lymph % (Auto) 9.0 L Whitley % (Auto) 7.5 Eos % (Auto) 1.0 Baso % (Auto) 0.4 Neut # (Auto) 11.4 H Lymph # (Auto) 1.3 Whitley # (Auto) 1.1 Eos # (Auto) 0.1 Baso # (Auto) 0.1 Immature Gran # (Auto) 0.1 Sodium 132.0 L Potassium 4.63 Chloride 102.2 Carbon Dioxide 23.8 Anion Gap 10.63 BUN 32.4 H Creatinine 1.32 H Estimated GFR (MDRD) 52.00 BUN/Creatinine Ratio 24.54 Glucose 144.6 H Lactic Acid 2.40 H Calcium 8.60 Total Bilirubin 1.13 AST 33.4 ALT 14.7 Alkaline Phosphatase 85.5 Troponin I 0.019 NT-Pro-B Natriuret Pep 54099 H Total Protein 7.07 Albumin 3.18 L Globulin 3.89 Albumin/Globulin Ratio 0.81 Influ A Molecular Assay Negative by naat Influ B Molecular Assay Negative by naat RSV Antigen Negative by naat SARS CoV-2 RNA Rapid JESICA Negative Orders Category Date Time Status EKG-(ED & IP/OBS ONLY) Stat CARDIO 06/18/25 18:48 Completed OXYGEN Routine CARDIO 06/18/25 18:47 Active PULSE OX [CONTINUOUS PULSE OX (NURSING)] PULSEOX CARE 06/18/25 18:48 Active Ict Trainer [ED RESTAURANT KITCHEN AND SERVICE MANAGER APPLIED] .ONCE EMERGENCY 06/18/25 18:48 Active IV [ED IV/MEDIPORT/POWERPORT] .ONCE EMERGENCY 06/18/25 18:48 Active BLOOD CULTURE (ED ONLY) Stat LAB 06/18/25 19:00 Received CBC W/ AUTO DIFF Stat LAB 06/18/25 19:10 Completed CMP [COMPREHENSIVE METABOLIC PANEL] Stat LAB 06/18/25 19:10 Completed COVID [SARS COV-2 RNA RAPID JESICA] Stat LAB 06/18/25 19:00 Completed FLU A & B MOLECULAR [FLU A/B MOLECULAR] Stat LAB 06/18/25 19:00 Completed LACTIC ACID Stat LAB 06/18/25 19:10 Completed LACTIC ACID Stat LAB 06/18/25 20:07 Ordered NT-PROBNP(ED) Stat LAB 06/18/25 19:10 Completed RSV Stat LAB 06/18/25 19:00 Completed TROPONIN I Stat LAB 06/18/25 19:10 Completed URINALYSIS C & S IF INDICATED Stat LAB 06/18/25 18:48 Uncollected 0.9 % Sodium Chloride [Saline Flush] Meds 06/18/25 18:47 Active 1 syr IVF PRN PRN Acetaminophen [Tylenol] Meds 06/18/25 18:47 Discontinued 650 mg PO ONCE STA Doxycycline Hyclate [Doxycycline] Meds 06/18/25 20:07 Once 100 mg PO ONCE ONE Sodium Chloride 0.9% [Sodium Chloride] 500 ml Meds 06/18/25 18:47 Active IV BOLUS CXR [CHEST, 1V AP ONLY] Stat RADS 06/18/25 18:48 Completed Medications Generic Name Dose Route Start Last Admin Trade Name Freq PRN Reason Stop Dose Admin Doxycycline Hyclate 100 mg 06/18/25 20:07 Doxycycline Hyclate 100 Mg Capsule PO 06/18/25 20:08 ONCE ONE Sodium Chloride 500 mls @ 250 mls/hr 06/18/25 18:47 Sodium Chloride IV 06/18/25 20:46 BOLUS ONE Sodium Chloride 1 syr 06/18/25 18:47 0.9% Sodium Chloride 10 Ml Disp.Syrin IVF PRN PRN To flush IV Discontinued Medications Generic Name Dose Route Start Last Admin Trade Name Freq PRN Reason Stop Dose Admin Acetaminophen 650 mg 06/18/25 18:47 Acetaminophen 325 Mg Tablet PO 06/18/25 18:48 ONCE STA Vital Signs: Temp Pulse Resp BP Pulse Ox 06/18/25 18:20 101.1 F H 111 H 32 H 145/53 H 94 L Discharge Plan Discharge Patient Disposition: PLACED OBSERVATION Discharge Problem: COPD with acute exacerbation, Generalized weakness Fever Qualifiers: Fever type: unspecified Qualified Code(s): R50.9 - Fever, unspecified Did you review [place] [employer] for ALL controlled substances?: Not Applicable ED Provider: DONNA RANDHAWA Condition: Stable
[2025-06-18] MEDS: SODIUM CHLORIDE 500 ML IV ONE (19:10)
--- NOTE | 2025-06-18 19:12 | DI ---
EXAM: SINGLE VIEW CHEST X-RAY. HISTORY: cough x 8 days, vomiting COMPARISON: 05/19/2025 TECHNIQUE: Single, portable AP view(s) of the chest. FINDINGS: Lungs: The lung voulmes are normal. The lungs are clear without consolidation or effusion. There are no suspicious nodules. There is no pneumothorax. Cardiovascular: The heart is enlarged. The pulmonary vasculature is within normal limits.. The aorta is unremarkable. Betty/Mediastinum: Normal. Osseous structures. Normal for age. IMPRESSION: No acute pulmonary disease. Cardiomegaly.
[2025-06-18 19:19] LABS: IMMATURE GRANULOCYTE # (AUTO) 0.1 (0.0-1.0); IMMATURE GRANULOCYTE % (AUTO) 0.4 % (0.0-5.0); RDW COEFFICIENT OF VARIATION 20.8 % (11.6-14.8)
[2025-06-18 19:30] LABS: CREATININE 1.32 mg/dL (0.60-1.10)
[2025-06-18 19:46] LABS: MOLECULAR FLU A NEGATIVE BY NAAT (NEGATIVE); MOLECULAR FLU B NEGATIVE BY NAAT (NEGATIVE); RSV MOLECULAR NEGATIVE BY NAAT (NEGATIVE); SARS COV-2 RNA RAPID NAAT NEGATIVE (NEGATIVE)
[2025-06-18] MEDS: TYLENOL PO STA (20:09)
[2025-06-18 20:17] LABS: GLUCOSE, URINE (UA) Negative (NEGATIVE); LEUKOCYTE ESTERASE ,URINE Negative (NEGATIVE); SQUAMOUS EPITHELIAL CELL,UR 0-2 (0-5); URINE RBC, MICROSCOPIC 0-2 (0-2); URINE, BLOOD Trace-intact (NEGATIVE)
[2025-06-18] MEDS: DOXYCYCLINE PO ONE (20:23)
[2025-06-18] MEDS ORDERED: DUONEB NEB PRN (22:04)
[2025-06-18 22:33] VITALS: BMI 18.6
[2025-06-18] MEDS: ROCEPHIN 1 GM/50 ML D5W 1 GM/50 ML BAG IV SCH (22:52)
[2025-06-19] MEDS: DUONEB NEB SCH (00:04)
[2025-06-19] MEDS: LASIX TAB PO SCH (05:31)
[2025-06-19] MEDS: SYNTHROID PO SCH (05:31)
[2025-06-19] MEDS: FERROUS SULFATE PO SCH (05:32)
[2025-06-19 05:53] LABS: IMMATURE GRANULOCYTE # (AUTO) 0.0 (0.0-1.0); IMMATURE GRANULOCYTE % (AUTO) 0.2 % (0.0-5.0); RDW COEFFICIENT OF VARIATION 20.5 % (11.6-14.8)
[2025-06-19 06:07] LABS: CREATININE 1.36 mg/dL (0.60-1.10)
[2025-06-19] MEDS: TENORMIN PO SCH (08:54)
[2025-06-19] MEDS: SYMBICORT 80-4.5 MCG INHALER IH SCH (08:54)
[2025-06-19] MEDS: MAG-OX PO SCH (08:55)
[2025-06-19] MEDS: ZYLOPRIM PO SCH (08:55)
[2025-06-19] MEDS: NORCO 5-325 PO SCH (08:55)
[2025-06-19] MEDS: DOXYCYCLINE PO SCH (08:55)
[2025-06-19] MEDS: PROTONIX PO SCH (08:56)
[2025-06-19] MEDS: NORVASC PO SCH (08:56)
[2025-06-19] MEDS ORDERED: [UNRECOGNIZED DRUG - OTHER] IH SCH (09:00)
--- NOTE | 2025-06-19 11:57 | PCM ---
Date of Service Date Seen by Provider: 06/19/25 Time Seen by Provider: 08:40 Admit Day/Time Admission Date: 06/18/25 Admission Time: 20:09 Reason for Admission Chief Complaint: NAUSEA Hospital Provider Hospital Provider: GLEN GRIDER PA-C, [facility] Primary Care Physician Primary Care Physician: JAZZMINE MACIEL History of Present Illness History of Present Illness: Patient is an 85 year old male who presented to ER with worsening SOB and cough. Patient has hx of COPD. He was initially requiring O2 in the ER which is not his baseline. CXR negative. Noted to be running a fever. Given abx and steroids. Admitted to [facility] for COPD exacerbation. Patient was noted to have dried feces and to be very soiled upon arrival. Today patient is somnolent, but answers questions appropriately before going back to sleep. States his breathing feels a bit better. Patient noted to be down almost 5 kg from visit in March 2025. [facility] a [facility] 1 month ago for 7 days, then discharged to local [place] for skilled rehab, recently discharged to home. CTA ordered to r/o pneumonia in setting of fever and sob. Case Discussed With Case Discussed With: Patient's case was discussed with the ER Physicians, Dr. Lowery. [facility] Medical History Edema R60.9 - Edema, unspecified (ICD-10) History of aortic stenosis Z86.79 - Personal history of other diseases of the circulatory system (ICD- 10) Bilateral carotid artery disease I77.9 - Disorder of arteries and arterioles, unspecified (ICD-10) Depression F32.A - Depression, unspecified (ICD-10) Anxiety F41.9 - Anxiety disorder, unspecified (ICD-10) COPD (chronic obstructive pulmonary disease) J44.9 - Chronic obstructive pulmonary disease, unspecified (ICD-10) Hyperlipidemia E78.5 - Hyperlipidemia, unspecified (ICD-10) Anemia D64.9 - Anemia, unspecified (ICD-10) Hypothyroidism E03.9 - Hypothyroidism, unspecified (ICD-10) Diabetes E11.9 - Type 2 diabetes mellitus without complications (ICD-10) Myocardial infarct March 2023 I21.9 - Acute myocardial infarction, unspecified (ICD-10) Hypertension I10 - Essential (primary) hypertension (ICD-10) Surgical History History of cholecystectomy Z90.49 - Acquired absence of other specified parts of digestive tract (ICD- 10) History of coronary artery stent placement Z95.5 - Presence of coronary angioplasty implant and graft (ICD-10) Status post spinal disc removal Z98.890 - Other specified postprocedural states (ICD-10) 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 - Acquired absence of other parts of urinary tract (ICD-10) Family History FATHER CAD (coronary artery disease) Mother CAD (coronary artery disease) Social History Smoking and tobacco status: Current every day smoker Tobacco type: cigarettes Smoking packs per day: 1 Smoking cigarettes per day: 20.0 Tobacco: How many years used: 70 Quit status: considering quitting Alcohol intake: former Details: Quit 8 years ago Substance use type: does not use Special elio needs: No Agree to transfusion: Yes Adopted: No Caregiver/support person: Yes Foster care: No Household members: children Housing: house Marital status: W / Lives independently: Yes Daycare: no daycare Number of children: 1 Financial difficulty paying for basics: not very hard service: Yes long term: No Current occupational status: retired History of recent travel: No Do you think of yourself as: straight/heterosexual Current gender identity: male Seatbelt use: always Helmet use: Yes Drives intoxicated or rides with intoxicated 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 Allergies Allergies Allergy/AdvReac Type Severity Reaction Status Date / Time No Known Allergies Allergy Verified 06/18/25 18:36 Current Medications Home Medications Acetaminophen (Acetaminophen 325 Mg Tablet) 650 mg PO Q4H PRN PRN Reason: pain Last Admin: 06/20/25 05:54 Dose: 650 mg Albuterol/Ipratropium (Ipratropium/Albuterol Vial.Neb) 3 ml NEB RTQ6H PRN PRN Reason: copd Allopurinol (Allopurinol 100 Mg Tablet) 100 mg PO DAILY BERYL Last Admin: 06/20/25 09:38 Dose: 100 mg Amlodipine Besylate (Amlodipine Besylate 5 Mg Tablet) 2.5 mg PO DAILY [facility] Atenolol (Atenolol 25 Mg Tablet) 25 mg PO DAILY [facility] Atorvastatin Calcium (Atorvastatin Calcium 20 Mg Tablet) 40 mg PO BEDTIME [facility] Last Admin: 06/19/25 20:04 Dose: 40 mg Budesonide/Formoterol Fumarate (Budesonide/Formoterol Fumarate 80/4.5 Mcg Hfa.Aer.Ad) 2 puff IH BID [facility] Last Admin: 06/20/25 09:36 Dose: 2 puff Doxycycline Hyclate (Doxycycline Hyclate 100 Mg Capsule) 100 mg PO Q12HR [facility] Stop: 06/23/25 10:59 Last Admin: 06/20/25 09:37 Dose: 100 mg Ferrous Sulfate (Ferrous Sulfate 324 Mg Tablet.) 324 mg PO QDAC2 [facility] Last Admin: 06/20/25 05:54 Dose: 324 mg Furosemide (Furosemide 20 Mg Tablet) 20 mg PO DAILY@0630 [facility] Last Admin: 06/20/25 05:54 Dose: 20 mg CEFTRIAXONE/D5W 1 GM PREMIX (Rocephin 1 Gm/50 Ml D5w) 1 gm in 50 mls @ 100 mls/hr IV BEDTIME [facility] Stop: 06/21/25 22:59 Last Admin: 06/19/25 20:04 Dose: 100 mls/hr Insulin Human Regular (Insulin Regular, Human 100 Unit/Ml (10ml) Vial) 0 unit SUBCUT PRN PRN; Protocol PRN Reason: Hyperglycemia Last Admin: 06/20/25 12:10 Dose: 10 unit Levothyroxine Sodium (Levothyroxine Sodium 112 Mcg Tablet) 112 mcg PO DAILY@0630 [facility] Last Admin: 06/20/25 05:54 Dose: 112 mcg Magnesium Oxide (Magnesium Oxide 400 Mg Tablet) 400 mg PO DAILY [facility] Last Admin: 06/20/25 09:38 Dose: 400 mg Methylprednisolone Sodium Succinate (Methylprednisolone Sod Succ/Pf 40 Mg/Ml Vial) 40 mg IVP Q8HR [facility] Last Admin: 06/20/25 12:12 Dose: 40 mg Non-Formulary Medication (Calcitriol) 0.25 mcg PO 3 TIMES PER WEEK [facility] Pantoprazole Sodium (Pantoprazole Sodium 40 Mg Tablet.) 40 mg PO BIDAC2 [facility] Last Admin: 06/20/25 05:54 Dose: 40 mg Sodium Chloride (0.9% Sodium Chloride 10 Ml Disp.Syrin) 1 syr IVF PRN PRN PRN Reason: To flush IV Last Admin: 06/20/25 05:19 Dose: 1 syr Sodium Chloride (0.9% Sodium Chloride 10 Ml Disp.Syrin) 1 syr IVF Q8HR BERYL Last Admin: 06/20/25 12:23 Dose: 1 syr Tamsulosin HCl (Tamsulosin Hcl 0.4 Mg Cap.Er.24h) 0.4 mg PO BEDTIME BERYL Last Admin: 06/19/25 20:04 Dose: 0.4 mg allopurinol 100 mg tablet 100 mg PO DAILY 06/25/23 [History Confirmed 06/18/25] atorvastatin 80 mg tablet 40 mg PO BEDTIME 06/25/23 [History Confirmed 06/18/25] levothyroxine 112 mcg tablet (Euthyrox) 112 mcg PO DAILY 06/25/23 [History Confirmed 06/18/25] magnesium oxide 400 mg PO DAILY 06/25/23 [History Confirmed 06/18/25] furosemide 20 mg tablet 20 mg PO DAILY PRN edema 08/27/23 [History Confirmed 06/20/25] calcitriol 0.25 mcg capsule 0.25 mcg PO .COMPLEX 10/05/24 [History Confirmed 06/20/25] Held on 06/20/25. Instructions: MD Kaur pantoprazole 40 mg tablet,delayed release 40 mg PO BID 10/05/24 [History Confirmed 06/18/25] ipratropium 0.5 mg-albuterol 3 mg (2.5 mg base)/3 mL nebulization soln 3 ml NEB RTQ6H PRN Shortness Of Breath Or Wheezing #180 mL 02/24/25 [Rx Confirmed 06/18/25] tamsulosin 0.4 mg capsule (Flomax) 0.4 mg PO BEDTIME 03/28/25 [History Confirmed 06/18/25] ferrous sulfate 324 mg (65 mg iron) tablet,delayed release 324 mg PO QDAC2 #30 tabs 03/31/25 [Rx Confirmed 06/18/25] albuterol 90 mcg/actuation aerosol inhaler 90 mcg inhalation QID 06/19/25 [History Confirmed 06/19/25] fluticasone propionate 50 mcg/actuation nasal spray,suspension 2 spray intranasal DAILY PRN allergy symptoms 10/13/25 [History Confirmed 06/19/25] amlodipine 2.5 mg tablet 2.5 mg PO DAILY 06/20/25 [History Confirmed 06/20/25] aspirin 81 mg capsule 81 mg PO DAILY 06/20/25 [History Confirmed 06/20/25] atenolol 25 mg tablet 25 mg PO BEDTIME 06/20/25 [History Confirmed 06/20/25] cyanocobalamin (vitamin B-12) 1,000 mcg capsule 1,000 mcg PO DAILY 06/20/25 [History Confirmed 06/20/25] diphenoxylate-atropine 2.5 mg-0.025 mg tablet (Lomotil) 1 tab PO BID PRN diarrhe a 06/20/25 [History Confirmed 06/20/25] fluticasone 250 mcg-salmeterol 50 mcg/dose blistr powdr for inhalation (Advair Diskus) 1 inh inhalation BID 06/20/25 [History Confirmed 06/20/25] hydrophilic cream applic topical DAILY 06/20/25 [History] omega 7-gvl-ave-fish oil 1,000 mg (120 mg-180 mg) capsule (Fish Oil) 1 cap PO DAILY 06/20/25 [History Confirmed 06/20/25] potassium chloride 20 mEq tablet,extended release(part/cryst) (Klor-Con M) 20 meq PO DAILY PRN Take with Lasix 06/20/25 [History Confirmed 06/20/25] Opioid Naive vs. Tolerant Does Patient Take Opioids?: No Is Patient Opioid Naive?: Yes What is Opioid Naive?: *Opioid Naive implies the patient is not already taking opioids or not chronically receiving opioids on a daily basis. *PRN dosing is not "usually" associated with tolerance. *Patients are at higher risk of over-sedation and aspiration. Is Patient Opioid Tolerant?: No What is Opioid Tolerant?: *Opioid Tolerance implies less than the expected response to an opioid. *Acquired tolerance is defined by the patient taking 60mg of oral morphine daily (or equianalgesic dose of another opioid) for 1 week or more. *Often associated with chronic pain. *May take more than usual dose to achieve desired pain control. Review of Systems Constitutional: Reports Fever, Fatigue and Weakness Head: Reports Normocephalic and Atraumatic Cardiovascular: Denies Chest pain or Chest Pressure Respiratory: Reports Cough and Shortness of air Gastrointestinal: Denies Nausea, Vomiting, Diarrhea or Abdominal pain Genitourinary: Denies Dysuria or Hematuria Neurological: Denies Dizziness or Syncope Physical examination Most Recent Vital Signs: Most Recent Vital Signs Temperature 97.9 F 06/19/25 10:00 Temperature Source Temporal Artery Scan 06/19/25 10:00 Temperature Source Oral 06/18/25 18:20 Pulse Rate 78 06/19/25 10:00 Respiratory Rate 18 06/19/25 10:00 Blood Pressure 108/51 L 06/19/25 10:00 Blood Pressure Mean 70 06/19/25 10:00 Blood Pressure Left Arm 103/56 06/18/25 21:05 Blood Pressure Location Left Arm 06/19/25 10:00 Blood Pressure Position Supine 06/19/25 10:00 O2 Sat by Pulse Oximetry 98 06/19/25 10:00 Oxygen Delivery Method Room Air 06/19/25 10:47 Oxygen Flow Rate 2 06/19/25 05:35 Height 6 ft 1 in 06/18/25 21:05 Weight 66.3 kg 06/19/25 06:00 Telemetry Type Remote Telemetry 06/19/25 07:00 Telemetry Monitoring Continues 06/19/25 07:00 Irregular Telemetry Rate (Approximate) 70-80 BPM 06/19/25 01:00 Telemetry Heart Rate 95 06/19/25 07:00 Telemetry SPO2 97 03/31/25 00:49 EKG QRS Interval 0.06 06/19/25 07:00 Telemetry Strip Reading AFIB 06/19/25 07:00 Pulse Oximetry Type Remote Telemetry 06/19/25 07:00 Pulse Oximetry Monitoring Continues 06/19/25 07:00 Appearance: Positive No Apparent Distress, Ill-Appearing, Thin, Cachectic and Other (+somnolent, but arouses easily, and oriented to person and place. ) Skin: Positive Other (+pale ) HEENT: Positive Normocephalic and Atraumatic Neck: Positive Supple and Midline Trachea Chest/Lungs: Positive Symmetrical With Equal Breath Sounds and Wheezes (mild) Heart: Positive Irregular Rhythm GI/: Positive Soft, Nontender, Bowel Sounds Normal and No Distention Extremities: Positive Other (+chronic erythema of lower ext, evidence of PVD ); Negative Edema Neurological: Positive Cranial Nerves Intact, Oriented (to person and place ) and Other (+generalized weakness ); Negative Alert (wakes easily, but somnolent ) Labs This Visit Labs This Visit: Labs This Visit 06/18/25 06/18/25 06/18/25 19:00 19:10 20:09 WBC 13.98 H RBC 3.29 L Hgb 9.4 L Hct 29.8 L MCV 90.6 MCH 28.6 MCHC 31.5 L RDW Coeff of Sri 20.8 H Plt Count 248 Immature Gran % (Auto) 0.4 Neut % (Auto) 81.7 H Lymph % (Auto) 9.0 L Iron % (Auto) 7.5 Eos % (Auto) 1.0 Baso % (Auto) 0.4 Neut # (Auto) 11.4 H Lymph # (Auto) 1.3 Iron # (Auto) 1.1 Eos # (Auto) 0.1 Baso # (Auto) 0.1 Immature Gran # (Auto) 0.1 Sodium 132.0 L Potassium 4.63 Chloride 102.2 Carbon Dioxide 23.8 Anion Gap 10.63 BUN 32.4 H Creatinine 1.32 H Estimated GFR (MDRD) 52.00 BUN/Creatinine Ratio 24.54 Glucose 144.6 H Lactic Acid 2.40 H Calcium 8.60 Total Bilirubin 1.13 AST 33.4 ALT 14.7 Alkaline Phosphatase 85.5 Troponin I 0.019 NT-Pro-B Natriuret Pep 23367 H Total Protein 7.07 Albumin 3.18 L Globulin 3.89 Albumin/Globulin Ratio 0.81 Urine Color Yellow Urine Clarity Clear Urine pH 5.5 Ur Specific Cameron >=1.030 Urine Protein 2+ H Urine Glucose (UA) Negative Urine Ketones Negative Urine Blood Trace-intact H Urine Nitrite Negative Urine Bilirubin Negative Urine Urobilinogen 0.2 Ur Leukocyte Esterase Negative Urine Microscopic RBC 0-2 Ur Squamous Epith Cells 0-2 Urine Mucus Trace Influ A Molecular Assay Negative by naat Influ B Molecular Assay Negative by naat RSV Antigen Negative by naat SARS CoV-2 RNA Rapid JESICA Negative 06/18/25 06/19/25 20:50 05:32 WBC 10.21 H RBC 2.83 L Hgb 8.1 L Hct 25.3 L MCV 89.4 MCH 28.6 MCHC 32.0 RDW Coeff of Sri 20.5 H Plt Count 259 Immature Gran % (Auto) 0.2 Neut % (Auto) 70.6 Lymph % (Auto) 17.9 Iron % (Auto) 8.4 Eos % (Auto) 2.5 Baso % (Auto) 0.4 Neut # (Auto) 7.2 H Lymph # (Auto) 1.8 Iron # (Auto) 0.9 Eos # (Auto) 0.3 Baso # (Auto) 0.0 Immature Gran # (Auto) 0.0 Sodium 133.4 L Potassium 4.08 Chloride 105.0 Carbon Dioxide 25.6 Anion Gap 6.88 BUN 30.6 H Creatinine 1.36 H Estimated GFR (MDRD) 50.00 BUN/Creatinine Ratio 22.50 Glucose 114.0 H Lactic Acid 1.45 Calcium 8.49 Total Bilirubin 0.84 AST 36.2 ALT 12.9 Alkaline Phosphatase 78.1 Troponin I NT-Pro-B Natriuret Pep Total Protein 6.10 L Albumin 2.64 L Globulin 3.46 Albumin/Globulin Ratio 0.76 Urine Color Urine Clarity Urine pH Ur Specific Cameron Urine Protein Urine Glucose (UA) Urine Ketones Urine Blood Urine Nitrite Urine Bilirubin Urine Urobilinogen Ur Leukocyte Esterase Urine Microscopic RBC Ur Squamous Epith Cells Urine Mucus Influ A Molecular Assay Influ B Molecular Assay RSV Antigen SARS CoV-2 RNA Rapid JESICA Imaging Imaging: EXAM: SINGLE VIEW CHEST X-RAY. HISTORY: cough x 8 days, vomiting COMPARISON: 05/19/2025 TECHNIQUE: Single, portable AP view(s) of the chest. FINDINGS: Lungs: The lung voulmes are normal. The lungs are clear without consolidation or effusion. There are no suspicious nodules. There is no pneumothorax. Cardiovascular: The heart is enlarged. The pulmonary vasculature is within normal limits.. The aorta is unremarkable. Betty/Mediastinum: Normal. Osseous structures. Normal for age. IMPRESSION: No acute pulmonary disease. Cardiomegaly. EXAM: CHEST CTA WITH CONTRAST (PULMONARY ARTERY) HISTORY: Shortness of breath. Hypoxia and weight loss. TECHNIQUE: CTA acquisition of the chest from the thoracic inlet to the upper abdomen following IV contrast administration timed to filling of the pulmonary artery. IV Contrast: 100 cc Visipaque 320 was administered intravenously. 3D/MIP/VR images were utilized. CT Dose Reduction Techniques Employed: Yes. COMPARISON: Chest x-ray 06/18/2025. CT chest of 10/14/2023. FINDINGS: Pulmonary Embolism: - Diagnostic quality: Adequate. - Central (Main/Lobar/Interlobar): No embolus. - Peripheral (Segmental/Subsegmental): Some of the subsegmental vessels are limited due to motion artifact though the majority appear within normal limits, as seen. No evidence for embolus is seen in the segmental or subsegmental vessels definitively. - Right ventricle/Left ventricle ratio: Normal. Lines, Tubes, Devices: None. Lung Parenchyma and Airways: There is some mild mucus within the mainstem bronchus on the name left and some bronchiectasis status lower lung on the left. There is mucous plugging within the segmental and subsegmental airways to the lower lung on the right. There is compressive atelectatic type change or mild infiltrate lower lung on the right. Mild diffuse emphysematous changes. Biapical pleural thickening and/or scar. There is some atelectasis within the lower lung on the left. No other well-defined infiltrate. A well defined nodule or consolidation otherwise is not seen. No mass. Pleural Space: There is small pleural fluid collection on the right. No pleural thickening. No pneumothorax. Thoracic Inlet, Mediastinum, and Betty: Thyroid is very small without abnormal finding in this area. Visualized esophagus appears contracted without definite focal abnormal finding. There are lymph nodes within the mediastinal and hilar regions which are upper limits of normal. 1 in the subcarinal region is mildly prominent 1.3 cm. Lymph node in the hilar region on the right is borderline prominent 1.4 cm. Other upper limits of normal lymph nodes are seen. These may be reactive. Heart, Vessels, and Pericardium: The thoracic aorta is not dilated. The heart is prominent without significant pericardial fluid. Prominent coronary artery calcification. Aortic calcification and calcification of the great vessels without aneurysm or dissection. Ascending aorta measures 3.1 cm maximally. The descending aorta is slightly more prominent 3.2 cm with some diffuse plaque and calcification. There is prominent calcification of the celiac and mesenteric and renal arteries, as seen. Bones and Soft Tissues: Significant focal soft tissue abnormality is not seen. Bony structures demonstrate degenerative changes throughout the spine. Rightward curvature. No acute fracture or dislocation is identified. Upper Abdomen: Upper abdomen demonstrates perinephric edema. Benign-appearing cyst 1.4 cm right kidney with another 1.4 cm cyst and another measuring 2.4 cm and another 3.2 cm. There is a cyst left kidney 2.5 cm and a few smaller cysts. No suspicious mass. There are vascular renal calcifications. Gallbladder is surgically absent. Diffuse prominence to the adrenal glands may be due to hyperplasia. Significant acute process is otherwise not seen. IMPRESSION: 1. Normal CT pulmonary angiogram with no evidence of pulmonary artery embolism. There is some minimal limitation to a few of the subsegmental vessels due to motion though a well-defined filling defect is not seen. 2. There is some mucous plugging within the mainstem bronchus on the left and some mucous plugging within some of the smaller airways lower lung on the left and within the segmental and subsegmental region of a few of the lower lung right airways. 3. Small pleural fluid collection on the right with compressive atelectasis or mild infiltrate lower lung on the right. No other well-defined consolidation or mass or nodule. There are underlying emphysematous changes within the lungs with atelectatic type change and other chronic changes. 4. There are borderline enlarged mildly prominent lymph nodes within the chest which may be reactive. 5. Heart is mildly prominent. Prominent coronary artery and at least [id number] to moderate vascular calcifications. Ascending aorta is not aneurysmal. Descending aorta is slightly more prominent than the ascending measuring 3.2 cm with peripheral plaque and calcification. Prominent calcifications at times involving the upper abdominal branch vessels. 6. Bilateral renal cysts and renal vascular calcifications without other renal abnormality. Significant acute process upper abdomen is not seen. 7. Bony degenerative change without acute bony abnormality. Details and other findings, as above. Review Statement Review Statement: I have independently reviewed and interpreted the labs/EKGs/imaging that were ordered by the ER provider. I have reviewed all outside records that are available currently in our EMR including imaging/notes/labs from previous visits. Plan Plan: 1. CAP, right - noted on CTA - abx ordered, duonebs, steroids 2. Acute COPD exacerbation - On RA this morning but was requiring O2 upon arriavl. Cont abx/steroids/duonebs 3. Failure to thrive - Pt has lost 4.5-5 kg in last few months, arrives to our facility covered in feces/urine, lives with son, was recently discharged from [place]. Will reach out to get details on when he was discharged. Pt would benefit from [facility] care. 4. Anemia - Chronic, has had occult positive stools in the past and denied work up/scopes, cont iron. 5. A fib - currently in a fib. Last hospitalization here in March his asa/eliquis were held until pcp follow up, [facility] pharmacy list does not include eliquis at this time. 6. Hyperlipidemia - Cont home meds 7. Hypertension - Cont home meds 8. Hypothyroidism - Cont home meds 9. GERD - Cont home meds 10. BPH - Cont home meds DVT Prophylaxis: Will hold in light of anemia Time Spent: Greater than 80 minutes spent with patient, 50% of the time spent with this patient was devoted to counseling and coordination of care. [facility] minutes spent discussing advance care planning. Smoking Cessation: 3 minutes spent discussing smoking cessation. Admit to: Make inpatient today due to CAP and patient is not at his baseline Discussed Plan of Care with Dr. Jacy Bay. Medications Medication Orders: Medications Ordered Category Date Time Status 0.9 % Sodium Chloride [Saline Flush] Meds 06/18/25 18:47 Active 1 syr IVF PRN PRN Acetaminophen [Tylenol] Meds 06/18/25 21:59 Active 650 mg PO Q4H PRN Allopurinol [Zyloprim] Meds 06/19/25 09:00 Active 100 mg PO DAILY Amlodipine Besylate [Norvasc] Meds 06/19/25 09:00 Active 5 mg PO DAILY Atenolol [Tenormin] Meds 06/19/25 09:00 Active 12.5 mg PO DAILY Atorvastatin Calcium [Lipitor] Meds 06/19/25 21:00 Active 40 mg PO BEDTIME Budesonide/Formoterol Fumarate [Symbicort 80-4.5 Mcg Meds 06/19/25 09:00 Active Inhaler] 2 puff IH BID Ceftriaxone/D5w 1 gm Premix [Rocephin 1 gm/50 ml D5w] Meds 06/19/25 21:00 Active 1 gm in 50 ml IV BEDTIME Doxycycline Hyclate [Doxycycline] Meds 06/19/25 09:00 Active 100 mg PO Q12HR Ferrous Sulfate Meds 06/19/25 06:00 Active 324 mg PO QDAC2 Furosemide [Lasix Tab] Meds 06/19/25 06:30 Active 20 mg PO DAILY@0630 Hydrocodone Bit/Acetaminophen [Lily 5-325] Meds 06/19/25 09:00 Active 1 tab PO BID Ipratropium/Albuterol Neb [Duoneb] Meds 06/18/25 22:04 Active 3 ml NEB RTQ6H PRN copd copd Levothyroxine Sodium [Synthroid] Meds 06/19/25 06:30 Active 112 mcg PO DAILY@0630 Magnesium Oxide [Mag-Ox] Meds 06/19/25 09:00 Active 400 mg PO DAILY Pantoprazole Sodium [Protonix] Meds 06/19/25 09:00 Active 40 mg PO BIDAC2 Tamsulosin HCl [Flomax] Meds 06/19/25 21:00 Active 0.4 mg PO BEDTIME calcitriol Meds 06/19/25 09:00 Active 0.25 mcg PO 3 TIMES PER WEEK
[2025-06-19] MEDS: VISIPAQUE 320 MG/ML 100ML IVP ONE (12:30)
--- NOTE | 2025-06-19 13:53 | CT ---
EXAM: CHEST CTA WITH CONTRAST (PULMONARY ARTERY) HISTORY: Shortness of breath. Hypoxia and weight loss. TECHNIQUE: CTA acquisition of the chest from the thoracic inlet to the upper abdomen following IV contrast administration timed to filling of the pulmonary artery. IV Contrast: 100 cc Visipaque 320 was administered intravenously. 3D/MIP/VR images were utilized. CT Dose Reduction Techniques Employed: Yes. COMPARISON: Chest x-ray 06/18/2025. CT chest of 10/14/2023. FINDINGS: Pulmonary Embolism: - Diagnostic quality: Adequate. - Central (Main/Lobar/Interlobar): No embolus. - Peripheral (Segmental/Subsegmental): Some of the subsegmental vessels are limited due to motion artifact though the majority appear within normal limits, as seen. No evidence for embolus is seen in the segmental or subsegmental vessels definitively. - Right ventricle/Left ventricle ratio: Normal. Lines, Tubes, Devices: None. Lung Parenchyma and Airways: There is some mild mucus within the mainstem bronchus on the name left and some bronchiectasis status lower lung on the left. There is mucous plugging within the segmental and subsegmental airways to the lower lung on the right. There is compressive atelectatic type change or mild infiltrate lower lung on the right. Mild diffuse emphysematous changes. Biapical pleural thickening and/or scar. There is some atelectasis within the lower lung on the left. No other well-defined infiltrate. A well defined nodule or consolidation otherwise is not seen. No mass. Pleural Space: There is small pleural fluid collection on the right. No pleural thickening. No pneumothorax. Thoracic Inlet, Mediastinum, and Betty: Thyroid is very small without abnormal finding in this area. Visualized esophagus appears contracted without definite focal abnormal finding. There are lymph nodes within the mediastinal and hilar regions which are upper limits of normal. 1 in the subcarinal region is mildly prominent 1.3 cm. Lymph node in the hilar region on the right is borderline prominent 1.4 cm. Other upper limits of normal lymph nodes are seen. These may be reactive. Heart, Vessels, and Pericardium: The thoracic aorta is not dilated. The heart is prominent without significant pericardial fluid. Prominent coronary artery calcification. Aortic calcification and calcification of the great vessels without aneurysm or dissection. Ascending aorta measures 3.1 cm maximally. The descending aorta is slightly more prominent 3.2 cm with some diffuse plaque and calcification. There is prominent calcification of the celiac and mesenteric and renal arteries, as seen. Bones and Soft Tissues: Significant focal soft tissue abnormality is not seen. Bony structures demonstrate degenerative changes throughout the spine. Rightward curvature. No acute fracture or dislocation is identified. Upper Abdomen: Upper abdomen demonstrates perinephric edema. Benign-appearing cyst 1.4 cm right kidney with another 1.4 cm cyst and another measuring 2.4 cm and another 3.2 cm. There is a cyst left kidney 2.5 cm and a few smaller cysts. No suspicious mass. There are vascular renal calcifications. Gallbladder is surgically absent. Diffuse prominence to the adrenal glands may be due to hyperplasia. Significant acute process is otherwise not seen. IMPRESSION: 1. Normal CT pulmonary angiogram with no evidence of pulmonary artery embolism. There is some minimal limitation to a few of the subsegmental vessels due to motion though a well-defined filling defect is not seen. 2. There is some mucous plugging within the mainstem bronchus on the left and some mucous plugging within some of the smaller airways lower lung on the left and within the segmental and subsegmental region of a few of the lower lung right airways. 3. Small pleural fluid collection on the right with compressive atelectasis or mild infiltrate lower lung on the right. No other well-defined consolidation or mass or nodule. There are underlying emphysematous changes within the lungs with atelectatic type change and other chronic changes. 4. There are borderline enlarged mildly prominent lymph nodes within the chest which may be reactive. 5. Heart is mildly prominent. Prominent coronary artery and at least [id number] to moderate vascular calcifications. Ascending aorta is not aneurysmal. Descending aorta is slightly more prominent than the ascending measuring 3.2 cm with peripheral plaque and calcification. Prominent calcifications at times involving the upper abdominal branch vessels. 6. Bilateral renal cysts and renal vascular calcifications without other renal abnormality. Significant acute process upper abdomen is not seen. 7. Bony degenerative change without acute bony abnormality. Details and other findings, as above. All CT scans are performed using dose optimization techniques as appropriate to the performed exam and include at least one of the following: Automated exposure control, adjustment of the mA and/or kV according to size, and the use of iterative reconstruction technique.
[2025-06-19] MEDS: SOLU-MEDROL 40 MG IVP SCH (15:04)
[2025-06-19] MEDS: FLOMAX PO SCH (20:04)
[2025-06-19] MEDS: LIPITOR PO SCH (20:04)
[2025-06-19] MEDS: ROCEPHIN 1 GM/50 ML D5W 1 GM/50 ML BAG IV SCH (20:04)
[2025-06-20 05:31] LABS: IMMATURE GRANULOCYTE # (AUTO) 0.0 (0.0-1.0); IMMATURE GRANULOCYTE % (AUTO) 0.5 % (0.0-5.0); RDW COEFFICIENT OF VARIATION 20.5 % (11.6-14.8)
[2025-06-20 05:44] LABS: CREATININE 1.29 mg/dL (0.60-1.10)
[2025-06-20] MEDS: TYLENOL PO PRN (05:54)
[2025-06-20] MEDS: HUMULIN R (10ML) SUBCUT PRN (12:10)
--- NOTE | 2025-06-20 12:36 | PCM.PROG ---
Date/Time Seen Date Seen by Provider: 06/20/25 Time Seen by Provider: 08:40 Provider Provider: GLEN GRIDER PA-C, [facility] Chief Complaint Chief Complaint: NAUSEA Subjective Subjective: Patient is more alert today, seems more like himself. Sitting in the chair. States his breathing is feeling better. Objective Appearance: Positive No Apparent Distress, Alert and Oriented x3 and Thin Chest/Lungs: Positive Clear to Auscultation Bilaterally; Negative Rales, Rhonci or Wheezes Heart: Positive Irregular Rhythm GI/: Positive Soft, Nontender, Bowel Sounds Normal and No Distention Neurological: Positive Cranial Nerves Intact, Alert, Oriented and Other (+generalized weakness, deconditioned) Additional Findings: lower ext - nikolas erythema, chronic, evidence of PVD Vital Signs Vital Signs: Vital Signs: Last 24 Hours 06/19/25 12:48 06/19/25 13:00 06/19/25 14:00 Temperature Temperature Source Pulse Rate Respiratory Rate Blood Pressure Blood Pressure Mean Blood Pressure Location Blood Pressure Position O2 Sat by Pulse Oximetry 94 L Oxygen Delivery Method Room Air Room Air Weight Telemetry Type Remote Telemetry Telemetry Monitoring Continues Irregular Telemetry Rate (Approximate) Telemetry Heart Rate 73 Telemetry SPO2 EKG QRS Interval 0.08 Telemetry Strip Reading AFIB Pulse Oximetry Type Bedside Monitor Pulse Oximetry Monitoring Continues 06/19/25 14:00 06/19/25 17:50 06/19/25 19:00 Temperature 97.2 F L 98.0 F Temperature Source Temporal Artery Scan Oral Pulse Rate 64 75 Respiratory Rate 20 18 Blood Pressure 111/68 137/67 Blood Pressure Mean 82 90 Blood Pressure Location Left Arm Right Arm Blood Pressure Position Supine O2 Sat by Pulse Oximetry 98 96 99 Oxygen Delivery Method Room Air Room Air Room Air Weight Telemetry Type Telemetry Monitoring Irregular Telemetry Rate (Approximate) Telemetry Heart Rate Telemetry SPO2 EKG QRS Interval Telemetry Strip Reading Pulse Oximetry Type Remote Telemetry Pulse Oximetry Monitoring Continues 06/19/25 19:00 06/19/25 19:15 06/19/25 20:00 Temperature Temperature Source Pulse Rate Respiratory Rate Blood Pressure Blood Pressure Mean Blood Pressure Location Blood Pressure Position O2 Sat by Pulse Oximetry Oxygen Delivery Method Room Air Room Air Weight Telemetry Type Remote Telemetry Telemetry Monitoring Continues Irregular Telemetry Rate (Approximate) 70-80 BPM Telemetry Heart Rate Telemetry SPO2 99 EKG QRS Interval 0.06 Telemetry Strip Reading A-FIB Pulse Oximetry Type Pulse Oximetry Monitoring 06/19/25 21:35 06/20/25 01:00 06/20/25 01:00 Temperature 97.9 F Temperature Source Temporal Artery Scan Pulse Rate 75 Respiratory Rate 18 Blood Pressure 121/66 Blood Pressure Mean 84 Blood Pressure Location Right Arm Blood Pressure Position Supine O2 Sat by Pulse Oximetry 96 100 Oxygen Delivery Method Room Air Room Air Weight Telemetry Type Remote Telemetry Telemetry Monitoring Continues Irregular Telemetry Rate (Approximate) 70-80 BPM Telemetry Heart Rate Telemetry SPO2 100 EKG QRS Interval 0.05 L Telemetry Strip Reading A-FIB WITH PVC Pulse Oximetry Type Remote Telemetry Pulse Oximetry Monitoring Continues 06/20/25 02:00 06/20/25 05:20 06/20/25 05:20 Temperature 97.3 F L 97.8 F Temperature Source Temporal Artery Scan Temporal Artery Scan Pulse Rate 86 74 Respiratory Rate 16 20 Blood Pressure 132/68 124/64 Blood Pressure Mean 89 84 Blood Pressure Location Right Arm Left Arm Blood Pressure Position Supine Supine O2 Sat by Pulse Oximetry 97 98 Oxygen Delivery Method Room Air Room Air Weight 66 kg Telemetry Type Telemetry Monitoring Irregular Telemetry Rate (Approximate) Telemetry Heart Rate Telemetry SPO2 EKG QRS Interval Telemetry Strip [place] Pulse Oximetry Type Pulse Oximetry Monitoring 06/20/25 06:00 06/20/25 07:00 06/20/25 07:00 Temperature Temperature Source Pulse Rate Respiratory Rate Blood Pressure Blood Pressure Mean Blood Pressure Location Blood Pressure Position O2 Sat by Pulse Oximetry 97 Oxygen Delivery Method Room Air Room Air Weight Telemetry Type Remote Telemetry Telemetry Monitoring Continues Irregular Telemetry Rate (Approximate) 70-80 BPM Telemetry Heart Rate Telemetry SPO2 97 EKG QRS Interval 0.06 Telemetry Strip Reading afib Pulse Oximetry Type Remote Telemetry Pulse Oximetry Monitoring Continues 06/20/25 08:00 06/20/25 10:00 06/20/25 10:00 Temperature 96.9 F L Temperature Source Temporal Artery Scan Pulse Rate 83 Respiratory Rate 18 Blood Pressure 119/65 Blood Pressure Mean 83 Blood Pressure Location Right Arm Blood Pressure Position Sitting O2 Sat by Pulse Oximetry 97 Oxygen Delivery Method Room Air Room Air Room Air Weight Telemetry Type Telemetry Monitoring Irregular Telemetry Rate (Approximate) Telemetry Heart Rate Telemetry SPO2 EKG QRS Interval Telemetry Strip Reading Pulse Oximetry Type Pulse Oximetry Monitoring Lab Results Lab Results: Lab Results: Last 24 Hours 06/20/25 05:19 WBC 5.91 RBC 2.77 L Hgb 8.1 L Hct 24.5 L MCV 88.4 MCH 29.2 MCHC 33.1 RDW Coeff of Sri 20.5 H Plt Count 253 Immature Gran % (Auto) 0.5 Neut % (Auto) 87.6 H Lymph % (Auto) 8.8 L [place] % (Auto) 2.9 Eos % (Auto) 0.0 Baso % (Auto) 0.2 Neut # (Auto) 5.2 Lymph # (Auto) 0.5 L [place] # (Auto) 0.2 L Eos # (Auto) 0.0 Baso # (Auto) 0.0 Immature Gran # (Auto) 0.0 Sodium 133.8 L Potassium 4.54 Chloride 105.6 Carbon Dioxide 25.3 Anion Gap 7.44 BUN 33.3 H Creatinine 1.29 H Estimated GFR (MDRD) 53.00 BUN/Creatinine Ratio 25.81 Glucose 157.9 H Hemoglobin A1c 5.57 Calcium 8.42 Total Bilirubin 0.44 AST 50.2 ALT 15.4 Alkaline Phosphatase 66.9 Total Protein 6.05 L Albumin 2.61 L Globulin 3.44 Albumin/Globulin Ratio 0.75 Additional Comments Additional Comments: I have independently reviewed and interpreted the labs/EKGs/imaging ordered during this hospital stay. I have reviewed outside records that are available in our EMR that pertain to medical stay including imaging/notes/labs from previous visits. Active Medications Active Medications: Medications Generic Name Dose Route Start Last Admin Trade Name Freq PRN Reason Stop Dose Admin Acetaminophen 650 mg 06/18/25 21:59 06/20/25 05:54 Acetaminophen 325 Mg Tablet PO 650 mg Q4H PRN Administration pain Albuterol/Ipratropium 3 ml 06/18/25 22:04 Ipratropium/Albuterol Vial.Neb NEB RTQ6H PRN copd Allopurinol 100 mg 06/19/25 09:00 06/20/25 09:38 Allopurinol 100 Mg Tablet PO 100 mg DAILY BERYL Administration Amlodipine Besylate 5 mg 06/19/25 09:00 06/20/25 09:38 Amlodipine Besylate 5 Mg Tablet PO 5 mg DAILY BERYL Administration Atenolol 12.5 mg 06/19/25 09:00 06/20/25 09:38 Atenolol 25 Mg Tablet PO 12.5 mg DAILY BERYL Administration Atorvastatin Calcium 40 mg 06/19/25 21:00 06/19/25 20:04 Atorvastatin Calcium 20 Mg Tablet PO 40 mg BEDTIME BERYL Administration Budesonide/Formoterol Fumarate 2 puff 06/19/25 09:00 06/20/25 09:36 Budesonide/Formoterol Fumarate 80/4.5 Mcg Hfa.Aer.Ad IH 2 puff BID BERYL Administration Doxycycline Hyclate 100 mg 06/19/25 09:00 06/20/25 09:37 Doxycycline Hyclate 100 Mg Capsule PO 06/23/25 10:59 100 mg Q12HR BERYL Administration Ferrous Sulfate 324 mg 06/19/25 06:00 06/20/25 05:54 Ferrous Sulfate 324 Mg Tablet. PO 324 mg QDAC2 BERYL Administration Furosemide 20 mg 06/19/25 06:30 06/20/25 05:54 Furosemide 20 Mg Tablet PO 20 mg DAILY@0630 BERYL Administration CEFTRIAXONE/D5W 1 GM PREMIX 1 gm in 50 mls @ 100 mls/hr 06/19/25 21:00 06/19/25 20:04 Rocephin 1 Gm/50 Ml D5w IV 06/21/25 22:59 100 mls/hr BEDTIME BERYL Administration Insulin Human Regular 0 unit 06/20/25 11:21 06/20/25 12:10 Insulin Regular, Human 100 Unit/Ml (10ml) Vial SUBCUT 10 unit PRN PRN Administration Hyperglycemia Protocol Levothyroxine Sodium 112 mcg 06/19/25 06:30 06/20/25 05:54 Levothyroxine Sodium 112 Mcg Tablet PO 112 mcg DAILY@0630 BERYL Administration Magnesium Oxide 400 mg 06/19/25 09:00 06/20/25 09:38 Magnesium Oxide 400 Mg Tablet PO 400 mg DAILY BERYL Administration Methylprednisolone Sodium Succinate 40 mg 06/19/25 14:30 06/20/25 12:12 Methylprednisolone Sod Succ/Pf 40 Mg/Ml Vial IVP 40 mg Q8HR BERYL Administration Non-Formulary Medication 0.25 mcg 06/19/25 09:00 Calcitriol PO 3 TIMES PER WEEK BERYL Pantoprazole Sodium 40 mg 06/19/25 09:00 06/20/25 05:54 Pantoprazole Sodium 40 Mg Tablet.Dr PO 40 mg BIDAC2 BERYL Administration Sodium Chloride 1 syr 06/18/25 18:47 06/20/25 05:19 0.9% Sodium Chloride 10 Ml Disp.Syrin IVF 1 syr PRN PRN Administration To flush IV Sodium Chloride 1 syr 06/20/25 13:00 06/20/25 12:23 0.9% Sodium Chloride 10 Ml Disp.Syrin IVF 1 syr Q8HR BERYL Administration Tamsulosin HCl 0.4 mg 06/19/25 21:00 06/19/25 20:04 Tamsulosin Hcl 0.4 Mg Cap.Er.24h PO 0.4 mg BEDTIME BERYL Administration Plan Plan: 1. CAP, right - noted on CTA - abx ordered, duonebs, steroids 2. Acute COPD exacerbation - On RA this morning but was requiring O2 upon arrival. Cont abx/steroids/duonebs 3. Failure to thrive - Pt has lost 4.5-5 kg in last few months, arrives to our facility covered in feces/urine, lives with son, was recently discharged from [place], discharged 06/14. Pt would benefit from fpc care. 4. Anemia - Chronic, has had occult positive stools in the past and denied work up/scopes, cont iron. 5. A fib - currently in a fib. Last hospitalization here in March his asa/eliquis were held until pcp follow up, [place] pharmacy list does not include eliquis at this time. 6. Hyperlipidemia - Cont home meds 7. Hypertension - Cont home meds 8. Hypothyroidism - Cont home meds 9. GERD - Cont home meds 10. BPH - Cont home meds DVT Prophylaxis: Will hold in light of anemia Dispo: Patient was only home from skilled rehab for 2-3 days before returning to hospital setting in deconditioned/soiled state. Suspect he doesn't take medications at home, this has also been suspected in past hospitalizations. He is high risk of readmission. Discussing bark grinder placement options with him. Review Statement Review Statement: I have personally discussed and reviewed the patient's visit/currently labs/imaging/decision making with Dr. Bay, my supervising attending. Greater that 50 minutes spent with patient, 50% of the time spent with this patient was devoted to counseling and coordination of care.
[2025-06-20] MEDS: CALMOSEPTINE OINTMENT TP SCH (16:32)
[2025-06-21 05:18] LABS: IMMATURE GRANULOCYTE # (AUTO) 0.1 (0.0-1.0); IMMATURE GRANULOCYTE % (AUTO) 0.5 % (0.0-5.0); RDW COEFFICIENT OF VARIATION 21.2 % (11.6-14.8)
[2025-06-21 05:33] LABS: CREATININE 1.25 mg/dL (0.60-1.10)
--- NOTE | 2025-06-21 09:03 | DCSUM ---
Admission Date Admission Date: 06/18/25 Discharge Date Discharge Date: 06/21/25 Admission Diagnosis Admission Diagnosis: 1. CAP, right 2. Acute COPD exacerbation 3. Failure to thrive Discharge Diagnosis Discharge Diagnosis: 1. CAP, right 2. Acute COPD exacerbation 3. Failure to thrive 4. Anemia 5. A fib 6. Hyperlipidemia 7. Hypertension 8. Hypothyroidism 9. GERD 10. BPH Hospital Provider Hospital Provider: GLEN GRIDER PA-C, [facility] Primary Care Physician Primary Care Physician: JAZZMINE MACIEL Summary of History and Physical Summary of History and Physical: Patient is an 85 year old male who presented to ER with worsening SOB and cough. Patient has hx of COPD. He was initially requiring O2 in the ER which is not his baseline. CXR negative. Noted to be running a fever. Given abx and steroids. Admitted to [facility] for COPD exacerbation. Patient was noted to have dried feces and to be very soiled upon arrival. Today patient is somnolent, but answers questions appropriately before going back to sleep. States his breathing feels a bit better. Patient noted to be down almost 5 kg from visit in March 2025. Had a hospitalization at the [facility] 1 month ago for 7 days, then discharged to [facility] for skilled rehab, recently discharged to home. CTA ordered to r/o pneumonia in setting of fever and sob. Hospital Course Subjective: Patient has been treated with duonebs/antibiotics/steroids. He has been weaned to RA. CTA showed some underlying pneumonia. Overall patient is at his baseline. I am concerned about his ability to care for himself at home. In March 2025 he had been home from skilled rehab <10 days prior to returning to the hospital. This time he was discharged on from [facility] on 06/14, and presented here on 06/18 very disheveled, covered in feces and urine. sales and marketing manager spoke with son, Fred who states Cameron is very resistant to cleaning himself up. Patient is alert and oriented, we discussed the need to keep his bottom area clean and dry to avoid sores and skin breakdown. He expresses understanding of this, however he continues to soil himself here while hospitalized. We looked into retirement placement options for him however he will be out of pocket a significant amount of money, which he is not willing or capable of doing. He is not [facility] service connected enough to benefit from one of their facilities. He ultimately has decided to return home, we discussed this is likely a plan to fail. He has lost almost 5 kg since March. He states he has plenty of food available to him in the home. He is unfortunately a high risk of readmission. He has a f/u with [facility] P[facility] scheduled for next week and we've also reached out to the social insurance specialist there with our concerns who plans to meet with him. I've also strongly recommended to him to take all of his medications with him to that appointment as I suspect he is not taking anything correctly and has not followed through with any dosage changes made over the last several months. He will be discharged in stable condition. Will send in remaining cefpodoxime, doxycycline, and steroids for him. Appearance: Pleasant, No Apparent Distress, Alert and Other (+thin ) HEENT: MMM CVS: Other (irregularly irregular ) Abdomen: Soft, Non-Tender and No Distention Respiratory: No Accessory Muscle Use Extremities: No Edema and Other (+chronic skin changes consistent with PVD ) Vital Signs: Most Recent Vital Signs Temperature 97.5 F L 06/21/25 05:13 Temperature Source Temporal Artery Scan 06/21/25 05:13 Temperature Source Oral 06/18/25 18:20 Pulse Rate 72 06/21/25 05:13 Respiratory Rate 20 06/21/25 05:13 Blood Pressure 147/80 H 06/21/25 05:13 Blood Pressure Mean 102 06/21/25 05:13 Blood Pressure Left Arm 103/56 06/18/25 21:05 Blood Pressure Location Left Arm 06/21/25 05:13 Blood Pressure Position Supine 06/21/25 05:13 O2 Sat by Pulse Oximetry 95 06/21/25 07:00 Oxygen Delivery Method Room Air 06/21/25 07:00 Oxygen Flow Rate 94 06/21/25 01:58 Height 6 ft 1 in 06/18/25 21:05 Weight 67 kg 06/21/25 05:14 Telemetry Type Remote Telemetry 06/21/25 01:00 Telemetry Monitoring Continues 06/21/25 01:00 Irregular Telemetry Rate (Approximate) 80-90 BPM 06/21/25 01:00 Telemetry Heart Rate 73 06/19/25 13:00 Telemetry SPO2 93 06/21/25 01:00 EKG QRS Interval 0.06 06/21/25 01:00 Telemetry Strip Reading A-FIB 06/21/25 01:00 Pulse Oximetry Type Remote Telemetry 06/21/25 07:00 Pulse Oximetry Monitoring Continues 06/21/25 07:00 Imaging: EXAM: SINGLE VIEW CHEST X-RAY. HISTORY: cough x 8 days, vomiting COMPARISON: 05/19/2025 TECHNIQUE: Single, portable AP view(s) of the chest. FINDINGS: Lungs: The lung voulmes are normal. The lungs are clear without consolidation or effusion. There are no suspicious nodules. There is no pneumothorax. Cardiovascular: The heart is enlarged. The pulmonary vasculature is within normal limits.. The aorta is unremarkable. Betty/Mediastinum: Normal. Osseous structures. Normal for age. IMPRESSION: No acute pulmonary disease. Cardiomegaly. EXAM: CHEST CTA WITH CONTRAST (PULMONARY ARTERY) HISTORY: Shortness of breath. Hypoxia and weight loss. TECHNIQUE: CTA acquisition of the chest from the thoracic inlet to the upper abdomen following IV contrast administration timed to filling of the pulmonary artery. IV Contrast: 100 cc Visipaque 320 was administered intravenously. 3D/MIP/VR images were utilized. CT Dose Reduction Techniques Employed: Yes. COMPARISON: Chest x-ray 06/18/2025. CT chest of 10/14/2023. FINDINGS: Pulmonary Embolism: - Diagnostic quality: Adequate. - Central (Main/Lobar/Interlobar): No embolus. - Peripheral (Segmental/Subsegmental): Some of the subsegmental vessels are limited due to motion artifact though the majority appear within normal limits, as seen. No evidence for embolus is seen in the segmental or subsegmental vessels definitively. - Right ventricle/Left ventricle ratio: Normal. Lines, Tubes, Devices: None. Lung Parenchyma and Airways: There is some mild mucus within the mainstem bronchus on the name left and some bronchiectasis status lower lung on the left. There is mucous plugging within the segmental and subsegmental airways to the lower lung on the right. There is compressive atelectatic type change or mild infiltrate lower lung on the right. Mild diffuse emphysematous changes. Biapical pleural thickening and/or scar. There is some atelectasis within the lower lung on the left. No other well-defined infiltrate. A well defined nodule or consolidation otherwise is not seen. No mass. Pleural Space: There is small pleural fluid collection on the right. No pleural thickening. No pneumothorax. Thoracic Inlet, Mediastinum, and Betty: Thyroid is very small without abnormal finding in this area. Visualized esophagus appears contracted without definite focal abnormal finding. There are lymph nodes within the mediastinal and hilar regions which are upper limits of normal. 1 in the subcarinal region is mildly prominent 1.3 cm. Lymph node in the hilar region on the right is borderline prominent 1.4 cm. Other upper limits of normal lymph nodes are seen. These may be reactive. Heart, Vessels, and Pericardium: The thoracic aorta is not dilated. The heart is prominent without significant pericardial fluid. Prominent coronary artery calcification. Aortic calcification and calcification of the great vessels without aneurysm or dissection. Ascending aorta measures 3.1 cm maximally. The descending aorta is slightly more prominent 3.2 cm with some diffuse plaque and calcification. There is prominent calcification of the celiac and mesenteric and renal arteries, as seen. Bones and Soft Tissues: Significant focal soft tissue abnormality is not seen. Bony structures demonstrate degenerative changes throughout the spine. Rightward curvature. No acute fracture or dislocation is identified. Upper Abdomen: Upper abdomen demonstrates perinephric edema. Benign-appearing cyst 1.4 cm right kidney with another 1.4 cm cyst and another measuring 2.4 cm and another 3.2 cm. There is a cyst left kidney 2.5 cm and a few smaller cysts. No suspicious mass. There are vascular renal calcifications. Gallbladder is surgically absent. Diffuse prominence to the adrenal glands may be due to hyperplasia. Significant acute process is otherwise not seen. IMPRESSION: 1. Normal CT pulmonary angiogram with no evidence of pulmonary artery embolism. There is some minimal limitation to a few of the subsegmental vessels due to motion though a well-defined filling defect is not seen. 2. There is some mucous plugging within the mainstem bronchus on the left and some mucous plugging within some of the smaller airways lower lung on the left and within the segmental and subsegmental region of a few of the lower lung right airways. 3. Small pleural fluid collection on the right with compressive atelectasis or mild infiltrate lower lung on the right. No other well-defined consolidation or mass or nodule. There are underlying emphysematous changes within the lungs with atelectatic type change and other chronic changes. 4. There are borderline enlarged mildly prominent lymph nodes within the chest which may be reactive. 5. Heart is mildly prominent. Prominent coronary artery and at least [id number] to moderate vascular calcifications. Ascending aorta is not aneurysmal. Descending aorta is slightly more prominent than the ascending measuring 3.2 cm with peripheral plaque and calcification. Prominent calcifications at times involving the upper abdominal branch vessels. 6. Bilateral renal cysts and renal vascular calcifications without other renal abnormality. Significant acute process upper abdomen is not seen. 7. Bony degenerative change without acute bony abnormality. Details and other findings, as above. Lab Results Last 24 Hours: 06/21/25 06/20/25 05:13 05:19 WBC 13.19 H D RBC 2.83 L Hgb 7.9 L Hct 24.9 L MCV 88.0 MCH 27.9 MCHC 31.7 L RDW Coeff of Sri 21.2 H Plt Count 258 Immature Gran % (Auto) 0.5 Neut % (Auto) 90.1 H Lymph % (Auto) 6.6 L [place] % (Auto) 2.7 Eos % (Auto) 0.0 Baso % (Auto) 0.1 Neut # (Auto) 11.9 H Lymph # (Auto) 0.9 [place] # (Auto) 0.4 Eos # (Auto) 0.0 Baso # (Auto) 0.0 Immature Gran # (Auto) 0.1 Sodium 134.4 L Potassium 4.60 Chloride 104.3 Carbon Dioxide 27.2 Anion Gap 7.50 BUN 39.1 H Creatinine 1.25 H Estimated GFR (MDRD) 55.00 BUN/Creatinine Ratio 31.28 Glucose 139.1 H Hemoglobin A1c 5.57 Calcium 8.61 Total Bilirubin 0.47 AST 56.5 ALT 16.9 Alkaline Phosphatase 66.6 Total Protein 6.00 L Albumin 2.63 L Globulin 3.37 Albumin/Globulin Ratio 0.78 Discharge Instructions Discharge Planning: Discharge Planning > [address] Jacy Bay. Discharge Medications: Medications at Discharge (Home Meds & RX) allopurinol 100 mg tablet 100 mg PO DAILY 06/25/23 atorvastatin 80 mg tablet 40 mg PO BEDTIME 06/25/23 levothyroxine 112 mcg tablet (Euthyrox) 112 mcg PO DAILY 06/25/23 magnesium oxide 400 mg PO DAILY 06/25/23 furosemide 20 mg tablet 20 mg PO DAILY PRN edema 08/27/23 calcitriol 0.25 mcg capsule 0.25 mcg PO .COMPLEX 10/05/24 pantoprazole 40 mg tablet,delayed release 40 mg PO BID 10/05/24 ipratropium 0.5 mg-albuterol 3 mg (2.5 mg base)/3 mL nebulization soln 3 ml NEB RTQ6H PRN Shortness Of Breath Or Wheezing #180 mL 02/24/25 tamsulosin 0.4 mg capsule (Flomax) 0.4 mg PO BEDTIME 03/28/25 ferrous sulfate 324 mg (65 mg iron) tablet,delayed release 324 mg PO QDAC2 #30 tabs 03/31/25 albuterol 90 mcg/actuation aerosol inhaler 90 mcg inhalation QID 06/19/25 fluticasone propionate 50 mcg/actuation nasal spray,suspension 2 spray i ntranasal DAILY PRN allergy symptoms 06/19/25 amlodipine 2.5 mg tablet 2.5 mg PO DAILY 06/20/25 aspirin 81 mg capsule 81 mg PO DAILY 06/20/25 atenolol 25 mg tablet 25 mg PO BEDTIME 06/20/25 cyanocobalamin (vitamin B-12) 1,000 mcg capsule 1,000 mcg PO DAILY 06/20/25 diphenoxylate-atropine 2.5 mg-0.025 mg tablet (Lomotil) 1 tab PO BID PRN diarrhea 06/20/25 fluticasone 250 mcg-salmeterol 50 mcg/dose blistr powdr for inhalation (Advair Diskus) 1 inh inhalation BID 06/20/25 hydrophilic cream applic topical DAILY 06/20/25 omega 8-pzp-vnr-fish oil 1,000 mg (120 mg-180 mg) capsule (Fish Oil) 1 cap PO DAILY 06/20/25 potassium chloride 20 mEq tablet,extended release(part/cryst) (Klor-Con M) 20 meq PO DAILY PRN Take with Lasix 06/20/25 cefpodoxime 200 mg tablet 200 mg PO BID 5 days #10 tabs 06/21/25 doxycycline hyclate 100 mg capsule 100 mg PO Q12HR 5 days #10 caps 06/21/25 prednisone 20 mg tablet 20 mg PO BID 5 days #10 tabs 06/21/25 Discharge Plan Discharge Discharge Orders: Discharge Patient (ONCE); Ordered 06/21/25 Ordered By: GLEN GRIDER Activity Restrictions/Additional Instructions: DISCHARGE TO HOME PLEASE MAKE SURE YOU FOLLOW UP WITH YOUR PCP DX: COPD EXACERBATION DIET: HEART HEALTHY ACTIVITY: TOLERATED, FALL PRECAUTIONS PLEASE MAKE SURE YOU'RE TAKING AN IRON SUPPLEMENT FOR YOUR LOW BLOOD COUNTS PLEASE TAKE ALL YOUR MEDICATIONS WITH YOU TO YOUR PCP FOLLOW UP SO THEY CAN SEE WHAT YOU'RE TAKING AT HOME PLEASE MAKE NOTE OF YOUR SCHEDULED PCP APPOINTMENT WITH JAZZMINE MACIEL NP ON 06/27/25 AT 11:45. THE INVERTED BLOCK OPERATOR IS SCHEDULED TO MEET WITH YOU AT THIS APPOINTMENT TO DISCUSS FURTHER RESOURCES AND GROUP HOME CARE OPTIONS WITH YOU. Instructions: Urinary Incontinence (GEN), Fall Prevention for Older Adults (DC), COPD (Chronic Obstructive Pulmonary Disease) (DC), Bowel Incontinence (GEN) Patient Disposition: HOME WITH FAMILY CARE Prescriptions: New doxycycline hyclate 100 mg Capsule 100 mg PO Q12HR 5 Days Qty: 10 0RF cefpodoxime 200 mg tablet 200 mg PO BID 5 Days Qty: 10 0RF Rx Instructions: must administer with a meal/food prednisone 20 mg tablet 20 mg PO BID 5 Days Qty: 10 0RF Continued furosemide 20 mg tablet 20 mg PO DAILY PRN (Reason: edema) tamsulosin [Flomax] 0.4 mg capsule 0.4 mg PO BEDTIME ferrous sulfate 324 mg (65 mg iron) Tablet,Delayed Release (Dr/Ec) 324 mg PO QDAC2 Qty: 30 0RF levothyroxine [Euthyrox] 112 mcg tablet 112 mcg PO DAILY atorvastatin 80 mg tablet 40 mg PO BEDTIME allopurinol 100 mg tablet 100 mg PO DAILY magnesium oxide 400 mg magnesium capsule 400 mg PO DAILY calcitriol 0.25 mcg capsule 0.25 mcg PO .COMPLEX Rx Instructions: 0.25 mcg orally 3 times per week; pantoprazole 40 mg tablet,delayed release (DR/EC) 40 mg PO BID ipratropium-albuterol 0.5 mg-3 mg(2.5 mg base)/3 mL Solution For Nebulization 3 ml NEB RTQ6H PRN (Reason: Shortness Of Breath Or Wheezing) Qty: 180 0RF albuterol 90 mcg/actuation aerosol 90 mcg inhalation QID fluticasone propionate 50 mcg/actuation spray,suspension 2 spray intranasal DAILY PRN (Reason: allergy symptoms) Rx Instructions: administer into each nostril amlodipine 2.5 mg tablet 2.5 mg PO DAILY atenolol 25 mg tablet 25 mg PO BEDTIME fluticasone propion-salmeterol [Advair Diskus] 250-50 mcg/dose blister with device 1 inh inhalation BID potassium chloride [Klor-Con M20] 20 mEq tablet,ER particles/crystals 20 meq PO DAILY PRN (Reason: Take with Lasix ) aspirin 81 mg capsule 81 mg PO DAILY diphenoxylate-atropine [Lomotil] 2.5-0.025 mg tablet 1 tab PO BID PRN (Reason: diarrhea) hydrophilic cream Cream topical DAILY cyanocobalamin (vitamin B-12) 1,000 mcg capsule 1,000 mcg PO DAILY omega 8-yuo-evm-fish oil [Fish Oil] 1,000 (120-180) mg capsule 1 cap PO DAILY Did you review [place] [employer] for ALL controlled substances?: Not Applicable Discussed opioids are addictive and Narcan is available by prescription or from pharmacy.: No Condition: Stable Referrals: JAZZMINE MACIEL [Primary Care Provider, [employer] INSPECTOR] - 06/27/25 11:45 am
[2025-06-21] MEDS: TENORMIN PO SCH (09:18)
[2025-06-21] MEDS: NORVASC PO SCH (09:20)
[2025-06-21 10:09] VITALS: BP 144/62; PULSE 82; RESP 16; TEMP 97
== END 2025-06-21 11:35 | disposition home or self-care (01) | DRG 194 ==
LOC: ED 18:18 → MEDSURG B 18:18
PROVIDERS: ADMIT Hospitalist; ATTEND Physician Assistant
DX: M62.81 Muscle weakness (generalized); N40.0 Benign prostatic hyperplasia without lower urinary tract symptoms; F17.210 Nicotine dependence, cigarettes, uncomplicated; I10 Essential (primary) hypertension; J44.0 Chronic obstructive pulmonary disease with (acute) lower respiratory infection; J44.1 Chronic obstructive pulmonary disease with (acute) exacerbation; R62.7 Adult failure to thrive; E78.5 Hyperlipidemia, unspecified; R06.02 Shortness of breath; I48.91 Unspecified atrial fibrillation; J18.9 Pneumonia, unspecified organism; N18.9 Chronic kidney disease, unspecified; E03.9 Hypothyroidism, unspecified; D72.829 Elevated white blood cell count, unspecified; K21.9 Gastro-esophageal reflux disease without esophagitis; D63.1 Anemia in chronic kidney disease